=== PATIENT | female | born 1955 | race Caucasian/White ===

== ENCOUNTER 2016-07-29 12:06 | Emergency (ER) | payer MEDICAID ==
[~2016-07-29] VITALS: Ht 154.9 cm; Wt 72.6 kg
[~2016-07-29 12:06] MED LIST: ATEN100T88 PO; CHLORTABS; CYCL-97; GBPN100C; HYDROCODONE 5/500; LANS15CA27 PO; LORA-794; METH4TAB PO; PRD20T PO
[2016-07-29] MEDS ORDERED: ORPHENADRINE 60 MG/2 ML (NORFLEX) AMP IM ONE (12:15)
[2016-07-29] MEDS ORDERED: KETOROLAC 60 MG/2 ML VIAL IM ONE (12:15)
[2016-07-29] MEDS ORDERED: HYDROcodone/APAP 10 MG/325 MG (LORTAB) TAB PO ONE (12:15)
--- NOTE | 2016-07-29 12:17 | ED Back Pain ---
General Chief Complaint: Back Problems Stated Complaint: BACK PAIN Source of Information: Patient Exam Limitations: No Limitations History of Present Illness Time Seen by Provider: 12:16 Initial Comments To ER with low back pain. She has a history of chronic back pain and this is not new. It is worse than usual and has been for about a week. She just finished a five-day course of prednisone. She denies fevers chills or injury. Pain does occasionally radiate down her right leg and this is not a new symptom. Denies loss of bowel or bladder control or saddle anesthesia. Location: Lumbar Spine Timing/Duration: 1-2 Days Severity: Moderate Associated Symptoms: lower back pain Allergies and Home Medications Allergies Coded Allergies: Latex (Unverified Allergy, Mild, RASH, 08/24/08) Codeine (Verified Adverse Reaction, Mild, N/V, 08/30/08) Home Medications (Reported) (Reported) Atenolol 100 Mg Tablet (Reported) Cyclobenzaprine Hcl 10 Mg Tablet (Reported) Gabapentin 100 Mg Cap (Reported) Lansoprazole 15 Mg Capsule.dr (Reported) Lorazepam 0.5 Mg Tablet (Reported) Constitutional: see HPI EENTM: see HPI Respiratory: no symptoms reported Cardiovascular: no symptoms reported Genitourinary: no symptoms reported Musculoskeletal: see HPI back pain Skin: no symptoms reported Psychiatric/Neurological: No Symptoms Reported Past Ivdsrvu-Gtrmbf-Drvlcv Hx Patient Social History Recent Foreign Travel: No Contact w/Someone Who Travel: No Surgeries HX Surgeries: Yes (THROAT) Surgeries: Gallbladder, Hysterectomy Respiratory Hx Respiratory Disorders: No Cardiovascular Hx Cardiac Disorders: Yes Cardiac Disorders: Hypertension Neurological Hx Neurological Disorders: No Reproductive System Hx Reproductive Disorders: No Sexually Transmitted Disease: No Genitourinary Hx Genitourinary Disorders: No Gastrointestinal Hx Gastrointestinal Disorders: No Musculoskeletal Hx Musculoskeletal Disorders: Yes (FIBROMYALGIA) Musculoskeletal Disorders: Chronic Back Pain Endocrine Hx Endocrine Disorders: Yes (DIET CONTROLLED DIABETES) HEENT HX ENT Disorders: No Cancer Hx Cancer: No Psychosocial Hx Psychiatric Problems: No Blood Transfusions Hx Blood Disorders: No Physical Exam Vital Signs Vital Sign - Last 12Hours 07/29/16 12:10 Temp 98.4 Pulse 74 Resp 18 B/P 162/84 Pulse Ox 96 Capillary Refill : General Appearance: No Apparent Distress WD/WN HEENT: PERRL/EOMI TMs Normal Respiratory: No Accessory Muscle Use No Respiratory Distress Gastrointestinal: Non Tender Soft Back: Normal InspectionNo Vertebral Tenderness Extremity: Normal Capillary Refill Normal Inspection Neurologic/Psychiatric: Alert Oriented x3 No Motor/Sensory Deficits Skin: Normal Color Warm/Dry Progress/Results/Core Measures Results/Orders My Orders Orders-LUCRETIA JACKSON APRN Ketorolac Injection (Toradol Injection) (07/29/16 12:15) Hydrocodone/Apap 10/325 Tablet (Lortab 1 (07/29/16 12:15) Orphenadrine Injection (Norflex Injectio (07/29/16 12:15) Medications Given in ED Current Medications Medications Dose Ordered Sig/Daniel Route Start Time Stop Time Status Last Admin Dose Admin Orphenadrine Citrate 60 mg ONCE ONCE IM 07/29/16 12:15 07/29/16 12:16 DC 07/29/16 12:27 60 MG Vital Signs/I&O Vital Sign - Last 12Hours 07/29/16 12:10 Temp 98.4 Pulse 74 Resp 18 B/P 162/84 Pulse Ox 96 Departure Impression Impression: Primary Impression: Back pain Qualified Code: M54.41 - Lumbago with sciatica, right side Disposition: 01 HOME, SELF-CARE Condition: Stable Departure-Patient Inst. Decision time for Depature: 12:17 Referrals: LUIS BOLAND DO (PCP) Primary Care Physician Patient Instructions: Low Back Pain (DC) Add. Discharge Instructions: 1. Follow-up with [facility] tomorrow to refill your hydrocodone 2. Return to ER for any emergencies All discharge instructions reviewed with patient and/or family. Voiced understanding. LUCRETIA JACKSON APRN Jul 29, 2016 12:17
[2016-07-29 12:29] VITALS: BP 162/84
[2016-07-30] MEDS ORDERED: HYDR-3820 PO (13:20)
[2016-07-30] MEDS ORDERED: PANT40TA3 (13:20)
[2016-07-30] MEDS ORDERED: CHLO500T4 PO (13:21)
[2016-07-30] MEDS ORDERED: METH4TAB PO (14:12)
== END 2016-07-29 12:29 | disposition home or self-care (01) ==
LOC: EDUNIT# 12:06 → ER 12:07
DX: M54.5 Low back pain (principal); I10 Essential (primary) hypertension; E11.9 Type 2 diabetes mellitus without complications
CPT/HCPCS: 96372; 99281

== ENCOUNTER 2016-07-30 12:34 | Emergency (ER) | payer MEDICAID ==
[~2016-07-30] VITALS: Ht 154.9 cm; Wt 72.6 kg
[2016-07-30] MEDS ORDERED: PANT40TA3 (13:20)
[2016-07-30] MEDS ORDERED: HYDR-3820 PO (13:20)
[2016-07-30] MEDS ORDERED: CHLO500T4 PO (13:21)
--- NOTE | 2016-07-30 14:10 | ED Back Pain ---
General Chief Complaint: Back Problems Stated Complaint: BACK PAIN Nursing Triage Note: Pt reports she was seen in this ED yesterday for back pain and received injections of pain medication. Pt now states pain has returned. Pt reports hx chronic back pain. Nursing Sepsis Screen: No Definite Risk Source of Information: Patient History of Present Illness Time Seen by Provider: 14:00 Initial Comments C/O CHRONIC LOWER BACK PAIN, WORSE FOR THE LAST WEEK NO INJURY OR UNUSUAL ACTIVITY PAIN DOES RADIATE DOWN RIGHT LEG AT TIMES, BUT NOT NOW. THIS IS NOT A NEW PROBLEM NO PARESTHESIAS OR MOTOR DEFICITS NO DIFFICULTY WITH BOWEL OR BLADDER FUNCTION THIS IS EXACTLY THE SAME CHRONIC PROBLEMS SHE HAS HAD WITH HER BACK WAS SEEN IN ER YESTERDAY FOR THIS PROBLEM AND RECEIVED SHOTS, WHICH HELPED ALOT , THEN PAIN CAME BACK AFTER SHOTS WORE OFF. SEEN AT [facility] A COUPLE OF WEEKS AGO FOR UTI SYMPTOMS--FINISHED UNKNOWN ANTIBIOTIC A WEEK AGO. THOSE SYMPTOMS ARE GONE. PT STATES THAT "DR. NORTON" AT [facility] TOLD HER "NEVER TO HAVE STEROID SHOTS BECAUSE I HAD A SEVERE REACTION TO THE SHOT ( "IT MADE ME SHAKE ALL OVER") BUT I CAN TAKE THE PILLS". PT STATES SHE JUST FINISHED A MEDROL DOSE PACK LAST WEEK. WHICH HELPED TEMPORARILY. PT STATES TORADOL AND PREDNISONE ALWAYS HELP PT TAKES HYDROCODONE AND A MUSCLE RELAXANT EVERY DAY FOR THIS CHRONIC PROBLEM. SHE TOOK BOTH MEDS TODAY AT 0800, AND TOOK A HYDROCODONE AGAIN AT 10:00 AM TODAY , WITHOUT RELIEF. 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 Allergies and Home Medications Allergies Coded Allergies: Latex (Unverified Allergy, Mild, RASH, 08/24/08) Codeine (Verified Adverse Reaction, Mild, N/V, 08/30/08) Home Medications Atenolol 100 Mg Tablet 100 MG PO DAILY (Reported) Chlorzoxazone 500 Mg Tablet #60 500 MG PO UD (Reported) Gabapentin 100 Mg Cap (Reported) Hydrocodone/Acetaminophen 1 Each Tablet #112 Unknown Dose PO PRN PRN PRN PAIN ( Reported) Lansoprazole 15 Mg Capsule.dr Unknown Dose PO DAILY (Reported) Lorazepam 0.5 Mg Tablet (Reported) Methylprednisolone 4 Mg Tab.ds.pk #1 4 MG PO UD Prescribed by: MANOLO ALONZO on 07/30/16 1412 Pantoprazole Sodium 40 Mg Tablet. #90 Unknown Dose (Reported) Constitutional: no symptoms reported Respiratory: no symptoms reported Cardiovascular: no symptoms reported Gastrointestinal: no symptoms reported Genitourinary: no symptoms reported see HPI : No Control/STD Prophylaxis: Other (HYST/BSO) Musculoskeletal: see HPI back pain Skin: no symptoms reported Psychiatric/Neurological: No Symptoms Reported Past Txjsemk-Czchpj-Lfspcd Hx Patient Social History Alcohol Use: Denies Use Recreational Drug Use: No Smoking Status: Current Everyday Smoker Type Used: Cigarettes Recent Foreign Travel: No Contact w/Someone Who Travel: No Recent Infectious Disease Expo: No Recent Hopitalizations: Yes (ER VISIT) Surgeries HX Surgeries: Yes (THROAT; HYST/BSO) Surgeries: Gallbladder, Hysterectomy, Oophorectomy Respiratory Hx Respiratory Disorders: No Cardiovascular Hx Cardiac Disorders: Yes Cardiac Disorders: Hypertension Neurological Hx Neurological Disorders: No Reproductive System Hx Reproductive Disorders: No Sexually Transmitted Disease: No Genitourinary Hx Genitourinary Disorders: No Gastrointestinal Hx Gastrointestinal Disorders: No Musculoskeletal Hx Musculoskeletal Disorders: Yes (FIBROMYALGIA; RESTLESS LEG SYNDROME) Musculoskeletal Disorders: Fibromyalgia, Chronic Back Pain Endocrine Hx Endocrine Disorders: Yes (DIET CONTROLLED DIABETES) Endocrine Disorders: Diabetes, Non-Insulin dep HEENT HX ENT Disorders: No Cancer Hx Cancer: No Psychosocial Hx Psychiatric Problems: No Integumentary HX Skin/Integumentary Disorder: No Blood Transfusions Hx Blood Disorders: No Physical Exam Vital Signs Vital Sign - Last 12Hours 07/30/16 13:13 Temp 97.6 Pulse 64 Resp 18 B/P 146/80 Pulse Ox 95 O2 Delivery Room Air Capillary Refill : Less Than 3 Seconds General Appearance: No Apparent Distress WD/WN Neck: Full Range of Motion Normal Inspection Non Tender Supple Cardiovascular: Regular Rate, Rhythm No Edema No JVD No Murmur Normal Peripheral Pulses Respiratory: Normal Breath Sounds No Accessory Muscle Use No Respiratory Distress Gastrointestinal: Normal Bowel Sounds No Organomegaly No Pulsatile Mass Non Tender Soft Back: Decreased Range of Motion Muscle Spasm Other (TENDERNESS FROM MID- THORACICS DOWN TO LOWER LUMBAR AREA. DTR'S INTACT. MOTOR/SENSORY/VASCULAR INTACT. NEGATIVE STRAIGHT LEG RAISING BILATERALLY. ) Progress/Results/Core Measures Results/Orders My Orders Orders-MANOLO ALONZO DO Orphenadrine Injection (Norflex Injectio (07/30/16 14:15) Ketorolac Injection (Toradol Injection) (07/30/16 14:15) Diphenhydramine Injection (Benadryl Inje (07/30/16 14:15) Vital Signs/I&O Vital Sign - Last 12Hours 07/30/16 07/30/16 13:13 14:45 Temp 97.6 Pulse 64 78 Resp 18 16 B/P 146/80 Pulse Ox 95 98 O2 Delivery Room Air Blood Pressure Mean: 102 Departure Impression Impression: Primary Impression: EXACERBATION OF CHRONIC BACK PAIN WITH RIGHT SIDED SCIATICA Disposition: HOME, SELF-CARE Condition: Stable Departure-Patient Inst. Referrals: LUIS BOLAND DO (PCP/Family) Primary Care Physician Patient Instructions: Low Back Pain (DC), Sciatica (DC), Sciatica Exercises, MANAGING YOUR CHRONIC PAIN Add. Discharge Instructions: MOST HEAT TO SORE AREAS AT 20 MINUTE INTERVALS TAKE YOUR REGULAR MEDICATIONS PRESCRIBED FOLLOW UP WITH [facility] THIS WEEK FOR FURTHER CARE All discharge instructions reviewed with patient and/or family. Voiced understanding. Scripts Methylprednisolone (Medrol)4 Mg Tab.ds.pk4 Mg PO UD #1 PKG Prov:MANOLO ALONZO DO 07/30/16 MANOLO ALONZO DO Jul 30, 2016 14:10
[2016-07-30] MEDS ORDERED: METH4TAB PO (14:12)
[2016-07-30] MEDS ORDERED: KETOROLAC 60 MG/2 ML VIAL IM ONE (14:15)
[2016-07-30] MEDS ORDERED: ORPHENADRINE 60 MG/2 ML (NORFLEX) AMP IM ONE (14:15)
[2016-07-30] MEDS ORDERED: diphenhydrAMINE 50 MG/ML INJ (BENADRYL) IM ONE (14:15)
[2016-07-30 14:45] VITALS: BP 179/95
== END 2016-07-30 14:45 | disposition home or self-care (01) ==
LOC: EDUNIT# 12:34 → ER 12:35
DX: M54.41 Lumbago with sciatica, right side (principal); G89.29 Other chronic pain; I10 Essential (primary) hypertension; F17.210 Nicotine dependence, cigarettes, uncomplicated
CPT/HCPCS: 96372; 99281

== ENCOUNTER → 2016-08-22 | Outpatient (CLI) | payer MEDICAID ==
[~2016-08-22] MED LIST changes: +CHLO500T4 PO; +HYDR-3820 PO; +PANT40TA3
--- NOTE | 2016-08-22 11:19 | Diagnostic Imaging Report ---
PROCEDURE: CT maxillofacial without contrast. TECHNIQUE: Multiple contiguous axial images were obtained through the facial bones without the use of intravenous contrast. INDICATION: Sinusitis. FINDINGS: There is significant mural thickening throughout the left maxillary sinus which extends to the ostiomeatal complex and involves several anterior left ethmoid air cells. There is no paranasal sinus air-fluid level. There is mild rightward deviation of the nasal septum. The right ostiomeatal complex is patent. Visualized mastoid air cells are also unremarkable in appearance. Note is made of apparent ectopic, unerupted incisor in the anterior right maxilla with similar ectopic an unerupted tooth in the anterior left mandible. There are several premolar and molar teeth missing bilaterally which may be related to dental disease. IMPRESSION: Rather extensive chronic left maxillary sinusitis with obstruction of left ostiomeatal complex and involvement of several left anterior ethmoid air cells. No paranasal sinus air-fluid level is seen to indicate acute sinusitis. Dictated by: Dictated on workstation # [id number]
== END ==
LOC: RAD 10:38
PROVIDERS: ATTEND Nurse Practitioner Community Health
DX: J01.90 Acute sinusitis, unspecified (principal)
CPT/HCPCS: 70486

== ENCOUNTER → 2016-12-18 | Outpatient (CLI) | payer MEDICAID | LOC: RAD 13:14 | PROVIDERS: ATTEND Nurse Practitioner Community Health | DX: Z12.31 Encounter for screening mammogram for malignant neoplasm of breast (principal) | CPT/HCPCS: 77067 ==

== ENCOUNTER → 2016-12-28 | Outpatient (CLI) | payer MEDICAID ==
--- NOTE | 2016-12-30 18:31 | Diagnostic Imaging Report ---
INDICATION: 85-[id number]-nltf smoking history. EXAMINATION: Low dose CT lung cancer screening. FINDINGS: Previous low-dose CT lung cancer screening exam of 10/12/15 noted a 4 mm noncalcified nodule in the posteromedial aspect of the right lower lobe. That finding is again identified on this study and no different in size or appearance (image 30 of 47). No other parenchymal lung mass is identified. The 9 mm pretracheal lymph node, seen previously, now measures 8 mm. The 9.5 mm subcarinal node, seen on the prior study, measures 8.5 mm. The heart is stable in size. There are no coronary artery calcifications noted. The sections through the upper abdomen fail to show any sign of an acute abnormality. There is no obvious breast mass. The screening mammogram performed on 12/18/16 failed to show any sign of malignancy. The bone windows are unremarkable for a fracture or for a destructive lesion. IMPRESSION: 1. The 4 mm nodule in the right lung base, seen previously, appears stable. No new parenchymal abnormality has developed. 2. There is no sign of an acute cardiopulmonary abnormality. 3. A followup CT chest exam in one year would be recommended for continued evaluation. 1B - Negative. Nodule(s) with specific calcifications: complete, popcorn, concentric rings and fat containing nodules. Continue annual screening with LDCT in 12 months. Dictated by: Dictated on workstation # [id number]
== END ==
LOC: RAD 13:20
PROVIDERS: ATTEND Internal Medicine
DX: Z12.2 Encounter for screening for malignant neoplasm of respiratory organs (principal); R91.1 Solitary pulmonary nodule; F17.210 Nicotine dependence, cigarettes, uncomplicated

== ENCOUNTER 2017-12-04 17:36 | Inpatient (IN) | payer MEDICAID ==
[~2017-12-04] VITALS: Ht 154.9 cm; Wt 70.0 kg
[2017-12-04] VITALS (17 sets, daily range): BP systolic 130–169; BP diastolic 93–108
[2017-12-04] MEDS ORDERED: TICAGRELOR 90 MG TABLET (BRILINTA) PO ONE (17:41)
--- OUTSIDE RECORDS SUMMARY | 2017-12-04 17:42 | XMS REPORT ---
Author Author CEDRIC LAWLER Organization [facility] Address [address] [place] [address] Care Team Providers Care Food Supervisor Name Role Phone CEDRIC LAWLER Unavailable PROBLEMS Type Condition ICD9-CM Code ZBG67-UP Code Onset Dates Condition Status SNOMED Code Problem Nicotine dependence, uncomplicated, unspecified nicotine product type F17.200 Active 26702950 Problem Ab[address] lung screening R93.8 Active 869568055 Problem Mild persistent asthma without complication J45.30 Active 540778245 Problem Restless leg syndrome G25.81 Active 55651381 Problem Osteoarthritis of spine with radiculopathy, cervical region M47.22 Active 501287777 Problem RLS (restless legs syndrome) G25.81 Active 66947751 Problem Diabetes mellitus type 2, controlled E11.9 Active 281794706 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 179903316071155 Problem Hypertension, benign I10 Active 13950177 Problem Essential hypertension I10 Active 36740610 ALLERGIES No Information ENCOUNTERS Encounter Location Date Diagnosis [place] [id number] [place] [address] 56862- 8623 Oct, [place] [address] [place] [id number] [place] [address] 80952- 9104 Oct, [place] [id number] [place] [address] 20642- 9534 Oct, Skin tags, multiple acquired L91.8 [place] [address] [id number] [place] [address] 72748- 6451 Oct, [place] [id number] [place] [address] 63740- 4821 Oct, Diabetes mellitus type 2, controlled E11.9 and Osteoarthritis of spine with radiculopathy, cervical region M47.22 [place] [id number] [address] 3176 September, Osteoarthritis of spine with radiculopathy, cervical region M47.22 ; Coughing R05 ; Chronic pruritus L29.9 and Breast cancer screening Z12.31 [facility] [address] [address] 1356 September, Diabetes mellitus type 2, controlled E11.9 [facility] [address] [address] Jul, Chronic cough R05 [facility] [id number] [place] [address], [place] [address]- 3[address] Jul, [facility] [id number] [place] [address] 44037- 7188 Jul, Diabetes mellitus type 2, controlled E11.9 [facility] [address] [address]- 9472 Jul, [facility] [address] [address]- 7169 Jul, [facility] [address] [address]- 9010 Jun, [facility] [address] [address]- 9338 Jun, Diabetes mellitus type 2, controlled E11.9 [facility] [address] [address]- 3838 Jun, [facility] [address] [address] [address] May, [facility] [id number] 6496 May, Diabetes mellitus type 2, controlled E11.9 [facility] [address] 7366 Apr, [facility] [id number] [place] [address] 32477- 6327 Apr, Pneumonia of right upper lobe due to infectious organism J18.1 [place] [address] 97797- 2114 Mar, [place] [address] 44955- 7073 Mar, [place] [address] 60735- 0279 Mar, [place] [address] 70168- 0679 03 Mar, 2017 Coughing R05 and SOB (shortness of breath) R06.02 [place] [address] 63315- 7438 Mar, Diabetes mellitus type 2, controlled E11.9 ; Coughing R05 and SOB (shortness of breath) R06.02 [place] [address] 71336- 1355 Feb, [place] [address] 97328- 1347 Feb, [place] [address] 53484- 1701 Jan, Hypertension, benign I10 and RLS (restless legs syndrome) G25.81 [place] [address] 70114- 8810 Jan, [place] [address] 02822- 7482 Dec, Pain in unspecified joint M25.50 and Mild persistent asthma without complication J45.30 [place] [address] 44288- 7510 Dec, [place] [address] 20220- [address] Dec, [address] lung screening R93.8 [facility] [address] [address]- 3156 Dec, [facility] [id number] [place] [address] 01638- 3653 Nov, Screening for breast cancer Z12.31 [facility] [id number] [place] [address] 20254- 0270 Nov, [facility] [id number] [place] [address] 90583- 1914 Nov, Essential hypertension I10 [facility] [id number] [place] [address] 16392- 4647 Nov, Essential hypertension I10 [facility] [id number] [place] [address] 02915- 0992 Oct, Acute non-recurrent maxillary sinusitis J01.00 [facility] [id number] [place] [address] 53280- 3543 Oct, [facility] [id number] [place] [address] 06680- 9037 September, Acute non-recurrent maxillary sinusitis J01.00 [facility] [address] [place] [address] 69155 -8170 September, Low back pain M54.5 [facility] [address] [place] [address] 79194- 4569 September, [facility] [address] [place] [address] 03724- 2268 Aug, Acute non-recurrent maxillary sinusitis J01.00 [facility] [address] [id number] Aug, Dental examination Z01.20 [facility] [address] [place] [address] 38605- 2910 Aug, [facility] [id number] [place] [address] 81980- 1668 Aug, [facility] [address] [address]- 1073 Aug, [facility] [id number] [place] [address] 73400- 8400 Aug, Acute sinusitis J01.90 [facility] [id number] [place] [address] 14179- 3487 Jul, [facility] [id number] [place] [address] 32680- 5810 Jul, [facility] [id number] [place] [address] 14708- 7547 Jul, [facility] [id number] [place] [address] 34807- 9103 Jul, [facility] [id number] [place] [address] 67123- 9483 Jul, Frequent urination R35.0 and Acute cystitis with hematuria N30.01 [facility] [address] [place] [address] 09166- 0858 Jul, [facility] [id number] [place] [address] 07075- 9136 Jun, [facility] [id number] [place] [address] 54156- 4868 Jun, Acute sinusitis J01.90 [facility] [id number] [place] [address] 79129- 6176 Jun, Diabetes mellitus type 2, controlled E11.9 ; Cough R05 ; Acute non-recurrent maxillary sinusitis J01.00 and 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 [facility] [address] [address]- 6084 May, [facility] [id number] [place] [address] 90079- 7849 May, [facility] [address] [address]- 7233 May, [facility] [id number] [place] [address] 83680- 9004 Apr, [facility] [id number] [address]- 9951 Apr, [facility] [id number] [place] [address] 79172- 7558 Apr, [facility] [address] [address]1870 Apr, Acute non-recurrent maxillary sinusitis J01.00 [facility] [id number] [place] [address] 38391- 1705 Apr, [facility] [id number] [place] [address] 16498- 9685 Feb, [facility] [id number] [place] [address] 91557- 2166 Feb, [facility] [id number] [place] [address] 91096- 1221 Feb, [facility] [id number] [place] [address] 76764- 1328 Feb, [facility] [address] [place] [address] 25097- 0076 Feb, [facility] [id number] [place] [address] 88257- 1966 Feb, [facility] [id number] [place] [address] 12891- 6692 Jan, RLS (restless legs syndrome) G25.81 ; Osteoarthritis of spine with radiculopathy, cervical region M47.22 ; Lumbar neuritis M54.16 and Left sciatic nerve pain M54.32 [facility] [id number] [place] [address] 60524- 3344 Jan, [facility] [address] [address]- 3708 Dec, [facility] [address] [address]- 4775 Nov, [facility] [address] [address]- 8787 Nov, [facility] [id number] [place] [address] 81648- 0498 Nov, [facility] [address] [address]- 0838 Nov, Restless leg syndrome G25.81 and Controlled type 2 diabetes mellitus without complication, without long-term current use of insulin E11.9 [place] [address] [address]- 7106 Nov, [facility] [address] [place] [address] 13760- 9074 Oct, [facility] [address] [address]- 5893 Oct, [facility] [address] [address]- 7894 Oct, [facility] [address] [address]- 1227 Oct, 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 lung screening R93.8 [facility] [address] [address]- 1660 Oct, [facility] [address] [address]- 4108 September, [facility] [address] [address]- 5639 September, Physical exam, annual Z00.00 ; Nicotine dependence, uncomplicated, unspecified nicotine product type F17.200 ; Screening breast examination Z12.39 ; Restless leg syndrome G25.81 and Mild persistent asthma without complication J45.30 [facility] [id number] [place] [address] 99085- 9105 September, [facility] [id number] [place] [address] 89160- 3864 September, [facility] [id number] [place] [address] 78135- 6016 Aug, [facility] [id number] [place] [address] 68661- 3318 09 Jul, 2015 Dental examination Z01.20 and Dental caries K02.9 [place] [address] 68965- 4630 Jul, [facility] [id number] [place] [address] 38403- 7214 Jul, Diabetes mellitus type 2, controlled E11.9 and Pain in unspecified joint M25.50 [facility] [id number] [place] [address] 24132- 8203 Jul, [facility] [id number] [place] [address] 28577- 2168 Jun, Dental examination Z01.20 [facility] [id number] [place] [address] 38234- 4684 May, [facility] [id number] [place] [address] 81074- 9624 May, [facility] [id number] [place] [address] 79605- 7825 Apr, [facility] [id number] [place] [address] 25303- 2506 Mar, [facility] [id number] [place] [address] 22817- 1680 Mar, Acute sinusitis J01.90 [facility] [id number] [place] [address] 54740- 2462 Feb, [facility] [address] [address]- 5210 Jan, Flu vaccine need V04.81 [facility] [id number] [place] [address] 53178- 8242 Jan, [facility] [id number] [place] [address] 12337- 7063 Jan, Pain in joint, site unspecified 719.40 [facility] [id number] [place] [address] 86561- 7812 Dec, Pain in joint, site unspecified 719.40 [facility] [address] 51749- 7194 Dec, [facility] [id number] [place] [address] 65789- 2130 Dec, [facility] [id number] [place] [address] 77166- 3889 Dec, Sciatica 724.3 ; Restless legs syndrome [RLS] 333.94 and Encounter for smoking cessation counseling V65.42 [facility] [id number] [place] [address] 39757- 1625 Dec, Nicotine dependence 305.1 [facility] [id number] [place] [address] 50512- 1313 Nov, [facility] [id number] [place] [address] 29392- 9947 Oct, [facility] [id number] [place] [address] 24341- 9872 Oct, [facility] [id number] [place] [address] 19369- 3455 September, [facility] [id number] [place] [address] 01934- 7589 Aug, [facility] [address] [place] [address]- 3991 Aug, [facility] [place] [facility] [address] [id number] [place] [address]- 7055 Jul, [facility] [place] [facility] [address] [id number] [place] [address]- 2171 Jul, [facility] [place] [facility] [address] [id number] [place] [address]- 3512 Jul, [facility] [place] [facility] [address] [id number] [place] [address]- 5169 Jun, [facility] [place] [facility] [address] [id number] [place] [address]- 4205 Jun, [facility] [place] [facility] [address] [id number] [place] [address]- 1206 Jun, [facility] [place] [facility] [address] [id number] [place] [address]- 0268 Jun, [facility] [place] [facility] [address] [id number] [place] [address]- 6861 May, [facility] [place] [facility] [address] [id number] [place] [address]- 3605 May, [facility] [place] [facility] [address] [id number] [place] [address]- 5239 May, [facility] [place] [facility] [address] [id number] [place] [address]- 8265 May, [facility] [place] [facility] [address] [id number] [place] [address]- 9388 May, [facility] [place] [facility] [address] [id number] [place] [address]- 2537 May, [facility] [place] [facility] [address] [id number] [place] [address]- 0596 May, [facility] [place] [facility] [address] [id number] [place] [address]- 1375 Apr, [facility] [place] [facility] [address] [id number] [place] 4198 Apr, [facility] [place] [facility] [address] [id number] [place] [address]- 0286 Apr, [facility] [place] [facility] [address] [id number] [place] 7537 Apr, [facility] [place] [facility] [address] [id number] [place] [address]- 9197 Apr, [facility] [place] [facility] [address] [id number] [place] 4432 Apr, [facility] [place] [facility] [address] [id number] [place] 2729 Apr, [facility] [place] [facility] [address] [id number] [place] [address]- 8652 Apr, [facility] [place] [facility] [address] [id number] [place] [address]- 3820 Apr, [facility] [place] [facility] [address] [id number] [place] [address]- 6941 Apr, [facility] [place] [facility] [address] [id number] [place] [address]- 5923 Mar, [facility] [place] [facility] [address] [id number] [place] [address]- 9212 Mar, [facility] [place] [facility] [address] [id number] [place] [address]- 8479 Mar, [facility] [place] [facility] [address] [id number] [place] [address]- 6853 Mar, [facility] [place] [facility] [address] [id number] [place] [address]- 7871 Mar, [facility] [place] [facility] [address] [id number] [place] [address]- 8480 Mar, [facility] [place] [facility] [address] [id number] [place] [address]- 5508 15 Feb, 2014 [facility] [place] [facility] [address] [id number] [place] [address]- 1937 15 Feb, 2014 [facility] [place] [facility] [address] [id number] [place] [address]- 6730 Feb, [facility] [place] [facility] [address] [id number] [place] [address]- 2113 Feb, [facility] [place] [facility] [address] [id number] [place] [address]- 1514 Feb, [facility] [place] [facility] [address] [id number] [place] [address]- 6690 Feb, [facility] [place] [facility] [address] [id number] [place] [address]- 9096 Jan, [facility] [place] [facility] [address] [id number] [place] [address]- 9898 Jan, [facility] [place] [facility] [address] [id number] [place] [address]- 7477 Jan, [facility] [place] [facility] [address] [id number] [place] [address]- 9349 Jan, [facility] [place] [facility] [address] [id number] [place] [address]- 5419 Dec, [facility] [place] [facility] [address] [id number] [place] [address]- 6570 Dec, [facility] [place] [facility] [address] [id number] [place] [address]- 8652 Dec, [facility] [place] [facility] [address] [id number] [place] [address]- 8594 Dec, [facility] [place] [facility] [address] [id number] [place] [address]- 8572 Dec, [facility] [place] [facility] [address] [id number] [place] [address]- 9403 16 Nov, 2013 [facility] [place] [facility] [address] [id number] [place] [address]- 2350 16 Nov, 2013 [facility] [place] [facility] [address] [id number] [place] [address]- 9406 15 Nov, 2013 [facility] [place] [facility] [address] [id number] [place] [address]- 0469 15 Nov, 2013 [facility] [place] [facility] [address] [id number] [place] [address]- 7993 15 Nov, 2013 [facility] [place] [facility] [address] [id number] [place] [address]- 0495 15 Nov, 2013 [facility] [place] [facility] [address] [id number] [place] [address]- 2073 16 Oct, 2013 [facility] [place] [facility] [address] [id number] [place] [address]- 6650 16 Oct, 2013 [facility] [place] [facility] [address] [id number] [place] [address]- 2016 16 Sep, 2013 [facility] [place] [facility] [address] [id number] [place] [address]- 3385 16 Sep, 2013 [facility] [place] [facility] [address] [id number] [place] [address]- 8154 14 Sep, 2013 [facility] [place] [facility] [address] [id number] [place] [address]- 6849 14 Sep, 2013 [facility] [place] [facility] [address] [id number] [place] [address]- 5777 14 Aug, 2013 [facility] [place] [facility] [address] [id number] [place] [address]- 5954 14 Aug, 2013 [facility] [place] [facility] [address] [id number] [place] [address]- 6892 17 Jul, 2013 [facility] [place] [facility] [address] [id number] [place] [address]- 1996 17 Jul, 2013 [facility] [place] [facility] [address] [id number] [place] [address]- 4346 14 Jul, 2013 [facility] [place] [facility] [address] [id number] [place] [address]- 9093 14 Jul, 2013 [facility] [place] [facility] [address] [id number] [place] [address]- 4775 Jun, [facility] [place] [facility] [address] [id number] [place] [address]- 3043 Jun, [facility] [place] [facility] [address] [id number] [place] [address]- 3732 Jun, [facility] [place] [facility] [address] [id number] [place] [address]- 5292 Jun, [facility] [place] [facility] [address] [id number] [place] [address]- 3287 May, [facility] [place] [facility] [address] [id number] [place] [address]- 7410 May, [facility] [place] [facility] [address] [id number] [place] [address]- 1189 May, [facility] [place] [facility] [address] [id number] [place] [address]- 9276 May, [facility] [place] [facility] [address] [id number] [place] [address]- 8166 Apr, [facility] [place] [facility] [address] [id number] [place] [address]- 1762 Apr, [facility] [place] [facility] [address] [id number] [place] [address]- 7784 Apr, [facility] [place] [facility] [address] [id number] [place] [address]- 4508 Mar, [facility] [place] [facility] [address] [id number] [place] [address] Mar, [facility] [place] [facility] [address] [id number] [place] [address] Mar, [facility] [place] [facility] [address] [id number] [place] [address] Mar, [facility] [address] [id number] [place] [address] Feb, 2012 [facility] [place] [facility] [address] [id number] [place] [address] Feb, [facility] [address] [id number] [place] [address] Feb, [facility] [place] [facility] [address] [id number] [place] [address] Feb, [facility] [address] [id number] [place] [address] Feb, [facility] [place] [facility] [address] [id number] [place] [address] Feb, [facility] [address] [id number] [place] [address] Feb, [facility] [address] [id number] [place] [address] Feb, [facility] [place] [facility] [address] [id number] [place] [address] Jan, [facility] [place] [facility] [address] [id number] [place] [address] Jan, [facility] [place] [facility] [address] [id number] [place] [address] Jan, [facility] [place] [facility] [address] [id number] [place] [address] Dec, [facility] [place] [facility] [address] [id number] [place] [address] Dec, [facility] [place] [facility] [address] [id number] [place] [address] Nov, [facility] [place] [facility] [address] [id number] [place] [address] Nov, [facility] [place] [facility] [address] [id number] [place] [address] Nov, [facility] [address] [id number] [place] [address] Nov, [facility] [address] [id number] [place] [address] Oct, [facility] [place] [facility] [address] [id number] [place] [address] Oct, [facility] [address] [id number] [place] [address] Oct, [facility] [address] [id number] [place] [address] September, [facility] [address] [id number] [place] [address] September, [facility] [address] [id number] [place] [address] September, [facility] [address] [id number] [place] [address] September, [facility] [address] [id number] [place] [address] Aug, [facility] [address] [id number] [place] [address] Aug, [facility] [place] [facility] [address] [id number] [address] Jul, [facility] [place] [facility] [address] [id number] [place] [address] Jul, [facility] [place] [facility] [address] [id number] [place] [address] Jul, [facility] [place] [facility] [address] [id number] [place] [address] Jul, [facility] [place] [facility] [address] [id number] [place] [address] Jul, [facility] [address] [id number] [place] [address]- [address] Jun, [facility] [address] [id number] [place] [address] Jun, [facility] [address] [id number] [place] [address] Jun, [facility] [address] [id number] [place] [address] May, [facility] [address] [id number] [place] [address] May, [facility] [address] [id number] [place] [address] May, [facility] [address] [id number] [place] [address] Apr, [facility] [address] [id number] [place] [address] Apr, [facility] [address] [id number] [place] [address] Apr, [facility] [address] [facility] [id number] [place] [address] Apr, [facility] [address] [id number] [place] [address] Apr, [facility] [address] [id number] [place] [address] Apr, [facility] [address] [id number] [place] [address] Apr, [facility] [address] [id number] [place] [address] 1496 Apr, [facility] [address] [facility] [id number] [place] [address] Mar, [facility] [place] [facility] [address] [id number] [place] [address]6 Mar, [facility] [place] [facility] [address] [id number] [place] [address] 77[address] Mar, [facility] [place] [facility] [address] [id number] [place] [address] Mar, [facility] [place] [facility] [address] [id number] [place] [address] 74[address] Mar, [facility] [place] [facility] [address] [id number] [place] [address] 4471 Mar, [facility] [place] [facility] [address] [id number] [place] [address] Mar, [facility] [place] [facility] [address] [id number] [place] [address] 117[address] Mar, [facility] [place] [facility] [address] [id number] [place] [address]135 Mar, [facility] [place] [facility] [address] [id number] [place] [address]296 Mar, [facility] [place] [facility] [address] [id number] [place] [address] 6771 Feb, [facility] [place] [facility] [address] [id number] [place] [address] 9647 Feb, [facility] [place] [facility] [address] [id number] [place] [address] 1968 Feb, [facility] [place] [facility] [address] [id number] [place] [address] 11 Jan, 2012 [facility] [place] [facility] [address] [id number] [place] [address]16 07 Jan, 2012 [facility] [place] [facility] [address] [id number] [place] [address] 07 Jan, 2012 [facility] [place] [facility] [address] [id number] [place] [address] Dec, [facility] [place] [facility] [address] [id number] [place] [address] Dec, [facility] [place] [facility] [address] [id number] [place] [address] 2526 Dec, [facility] [place] [facility] [address] [id number] [place] [address] 2546 Dec, [facility] [place] [facility] [address] [id number] [place] [address] 9626 Dec, [facility] [place] [facility] [address] [id number] [place] [address] 79[address] Nov, [facility] [place] [facility] [address] [id number] [place] [address] 6826 Nov, [facility] [place] [facility] [address] [id number] [place] [address] 9636 Oct, [facility] [place] [facility] [address] [id number] [place] [address] 2265 September, [facility] [place] [facility] [address] [id number] [place] [address] 1186 September, [facility] [place] [facility] [address] [id number] [place] [address] 4926 September, [facility] [place] [facility] [address] [id number] [place] [address] 4106 September, [facility] [place] [facility] [address] [id number] [place] [address] 2546 September, [facility] [place] [facility] [address] [id number] [place] [address]- 5766 Aug, [facility] [place] [facility] [address] [id number] [place] [address]- 2546 16 Jul, 2011 [facility] [place] [facility] [address] [id number] [place] [address] 2546 Jul, [facility] [place] [facility] [address] [id number] [place] [address] 9420 14 Jul, 2011 [facility] [address] [id number] [place] [address]- 2493 14 Jul, 2011 [facility] [place] [facility] [address] [id number] [place] [address] 2546 09 Jul, 2011 [facility] [address] [id number] [place] [address]- 2227 09 Jul, 2011 [facility] [place] [facility] [address] [id number] [place] [address] 2549 08 Jul, 2011 [facility] [address] [id number] [place] [address]- 2010 Jul, [facility] [place] [facility] [address] [id number] [place] [address]- 3986 27 Jun, 2011 [facility] [place] [facility] [address] [facility] [id number] [place] [address] 2849 16 Jun, 2011 [facility] [place] [facility] [address] [facility] [id number] [place] [address]- 5243 Jun, [facility] [place] [facility] [address] [facility] [id number] [place] [address]- 6987 May, [facility] [address] [facility] [id number] [place] [address]- 4736 Apr, [facility] [place] [facility] [address] [id number] [place] [address]- 5186 Apr, [facility] [place] [facility] [address] [id number] [place] [address]- 2546 Mar, [facility] [place] [facility] [address] [id number] [place] [address]- 7666 Mar, [facility] [place] [facility] [address] [facility] [id number] [place] [address]- 2546 Mar, [facility] [place] [facility] [address] [facility] [id number] [place] [address] Feb, [facility] [place] [facility] [address] [id number] [place] [address]- 7767 Feb, [facility] [place] [facility] [address] [id number] [place] [address]- 5028 Feb, [facility] [place] [facility] [address] [id number] [place] [address]- 0555 Apr, [facility] [place] [facility] [address] [id number] [place] [address]- 7491 Apr, [facility] [place] [facility] [address] [id number] [place] [address]- 4703 Mar, [facility] [place] [facility] [address] [id number] [place] [address]- 0684 Mar, [facility] [place] [facility] [address] [id number] [place] [address]- 9903 Mar, [facility] [place] [facility] [address] [id number] [address] 4085 Mar, [facility] [place] [facility] [address] [id number] [place] [address]- 0027 Mar, [facility] [place] [facility] [address] [id number] [address] 9932 Feb, [facility] [place] [facility] [address] [id number] [place] [address] 37[address] September, [facility] [place] [facility] [address] [id number] [place] [address]- 8998 Aug, [facility] [place] [facility] [address] [id number] [place] [address]- 0455 Apr, [facility] [place] [facility] [address] [id number] [place] [address]- 6017 15 Apr, 2009 [facility] [place] [facility] [address] [id number] [place] [address]- 9004 18 Mar, 2009 [facility] [place] [facility] [address] [id number] [place] [address]- 7638 Mar, [facility] [id number] [address] Mar, [facility] [id number] [address] 0496 Feb, [facility] [address] [id number] [address]11 Jan, [facility] [id number] [place] [address]- [address]289 Dec, [facility] [id number] [place] [address]- 1908 Nov, [facility] [id number] [place] [address]- 8137 Oct, [facility] [id number] [place] [address]- 3348 Apr, [facility] [id number] [address]- 8971 Apr, [facility] [id number] [address]- 6[address] Apr, [facility] [id number] [address]- 6824 Feb, IMMUNIZATIONS No Known Immunizations SOCIAL HISTORY Never Assessed REASON FOR VISIT continued productive cough PLAN OF CARE VITAL SIGNS MEDICATIONS Medication Instructions Dosage Frequency Start Date End Date Duration Status PredniSONE 20 mg Orally Once a day 2 tablets 24h Apr, Jul, 05 days Active Tessalon Perles 100 mg Orally Three times a day 1 capsule as needed 8h Jul, Active RESULTS No Results PROCEDURES No Known procedures INSTRUCTIONS MEDICATIONS ADMINISTERED No Known Medications MEDICAL (GENERAL) HISTORY Type Description Date Medical History Diabetes type 2; diet controlled Medical History chronic pain; back and leg Medical History fibromyalgia Medical History restless leg syndrome Medical History Sjorens Syndrome Medical History degerative disc disease Medical History Asthma Medical History Low Dose Lung CT Screening 09/2015 - Multiple tiny granulomas bilaterally, 0.4cm nodule RLL (possibly granuloma) - needs f/u CT 6 months Surgical History cholecystectomy Surgical History hysterectomy - TVH w/ BSO - benign reasons 2005 Surgical History neck surgery; tumor removed; ?thyroid Surgical History hernia repair (with the cholecystectomy) Surgical History gallbladder removed 2008 Hospitalization History r/t surgeries and childbirth
--- OUTSIDE RECORDS SUMMARY | 2017-12-04 17:43 | XMS REPORT ---
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 Problem Lump or mass in breast 611.72 Active Assessment Pain in joint, site unspecified 719.40 Active Problem Unspecified arthropathy, site unspecified 716.90 Active Problem Pain in joint, site unspecified 719.40 Active Problem Unspecified peripheral vertigo 386.10 Active Problem Dysfunction of Eustachian tube 381.81 Active Problem Restless legs syndrome [RLS] 333.94 Active Problem Unspecified sleep disturbance 780.50 Active Problem Screening mammogram for high-risk patient V76.11 Active Problem DTAP TEST V06.1 Active Medications No Known Medications Results No Known Results Summary Purpose [employer] Submission
--- OUTSIDE RECORDS SUMMARY | 2017-12-04 17:43 | XMS REPORT ---
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 Problem Lump or mass in breast 611.72 Active Assessment Flu vaccine need V04.81 Active Problem Unspecified arthropathy, site unspecified 716.90 Active Problem Pain in joint, site unspecified 719.40 Active Problem Unspecified peripheral vertigo 386.10 Active Problem Dysfunction of Eustachian tube 381.81 Active Problem Restless legs syndrome [RLS] 333.94 Active Problem Unspecified sleep disturbance 780.50 Active Problem Screening mammogram for high-risk patient V76.11 Active Problem DTAP TEST V06.1 Active Medications No Known Medications Procedures Procedure Coding System Code Date SINGLE IMMUNIZATION ADMIN CPT-4 00167 Jan 31, 2015 FLU VAC NO PRSV 4 LYLY 3 YRS+ CPT-4 75157 Jan 31, 2015 Results No Known Results Immunizations Vaccine Administration Date FLUARIX QUAD (3 & UP)-2014Jan 31, 2015 Summary Purpose [employer] Submission
--- OUTSIDE RECORDS SUMMARY | 2017-12-04 17:43 | XMS REPORT ---
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 010345274645587 Problem Abnormal CT lung screening R93.8 Active 462959650 Problem Mild persistent asthma without complication J45.30 Active 702118771 Problem Nicotine dependence, uncomplicated, unspecified nicotine product type F17.200 Active 12206598 Problem Restless leg syndrome G25.81 Active 50995418 ALLERGIES Unknown Allergies SOCIAL HISTORY No smoking Hx information available PLAN OF CARE VITAL SIGNS MEDICATIONS Medication Instructions Dosage Frequency Start Date End Date Duration Status PredniSONE 20 mg Orally twice a day 1 tablet 12h Apr, Apr, 05 days Active RESULTS No Results PROCEDURES No Known procedures IMMUNIZATIONS No Known Immunizations
--- OUTSIDE RECORDS SUMMARY | 2017-12-04 17:43 | XMS REPORT ---
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
--- OUTSIDE RECORDS SUMMARY | 2017-12-04 17:43 | XMS REPORT ---
Author Author CEDRIC LAWLER Organization [facility] Address [address] [place] [address] Care Team Providers Care Bilingual Legal Assistant Name Role Phone CEDRIC LAWLER Unavailable PROBLEMS Type Condition ICD9-CM Code CBM69-RS Code Onset Dates Condition Status SNOMED Code Problem Nicotine dependence, uncomplicated, unspecified nicotine product type F17.200 Active 40049801 Problem Ab[address] CT lung screening R93.8 Active 363209134 Problem Mild persistent asthma without complication J45.30 Active 627907314 Problem Restless leg syndrome G25.81 Active 76177041 Problem Osteoarthritis of spine with radiculopathy, cervical region M47.22 Active 706109793 Problem RLS (restless legs syndrome) G25.81 Active 88039368 Problem Diabetes mellitus type 2, controlled E11.9 Active 196033778 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 698665916644342 Problem Hypertension, benign I10 Active 31149528 Problem Essential hypertension I10 Active 88581402 ALLERGIES No Information ENCOUNTERS Encounter Location Date Diagnosis [place] [id number] [place] [address] 84408- 2361 Oct, [place] [address] [place] [id number] [place] [address] 37854- 6661 Oct, [place] [id number] [place] [address] 43793- 1154 Oct, Skin tags, multiple acquired L91.8 [place] [id number] [place] [address] 98635- 7329 Oct, [place] [id number] [place] [address] 07643- 4353 Oct, Diabetes mellitus type 2, controlled E11.9 and Osteoarthritis of spine with radiculopathy, cervical region M47.22 [place] [address] [address]49 September, Osteoarthritis of spine with radiculopathy, cervical region M47.22 ; Coughing R05 ; Chronic pruritus L29.9 and Breast cancer screening Z12.31 [facility] [address] [address] [address] September, Diabetes mellitus type 2, controlled E11.9 [facility] [address] [address] Jul, Chronic cough R05 [facility] [address] [place] [id number] [place] [address], [place] [address]- 0056 Jul, [facility] [id number] [place] [address] 30744- 8878 Jul, Diabetes mellitus type 2, controlled E11.9 [facility] [address] [address] 3998 Jul, [facility] [address] [address]- 7634 Jul, [facility] [address] [address]- 6269 Jun, [facility] [address] [address]- 9118 Jun, Diabetes mellitus type 2, controlled E11.9 [facility] [address] [address]- 9290 Jun, [facility] [address] [address] 95[address] May, [facility] [address] [address] May, Diabetes mellitus type 2, controlled E11.9 [facility] [address] [address] Apr, [facility] [id number] [place] [address] 73082- 7781 Apr, Pneumonia of right upper lobe due to infectious organism J18.1 [place] [address] 60779- 2554 Mar, [place] [address] 55550- 0410 Mar, [place] [address] 50478- 4356 Mar, [place] [address] 26284- 6850 03 Mar, 2017 Coughing R05 and SOB (shortness of breath) R06.02 [place] [address] 01623- 7900 Mar, Diabetes mellitus type 2, controlled E11.9 ; Coughing R05 and SOB (shortness of breath) R06.02 [place] [address] 79007- 0694 Feb, [place] [address] 61330- 1071 Feb, [place] [address] 76664- 9530 Jan, Hypertension, benign I10 and RLS (restless legs syndrome) G25.81 [place] [address] 55814- 3275 Jan, [place] [address] 07491- 2292 Dec, Pain in unspecified joint M25.50 and Mild persistent asthma without complication J45.30 [place] [address] 76645- 2423 Dec, [place] [address] 27372- [address] Dec, [address] lung screening R93.8 [facility] [address] [address]- 7477 Dec, [facility] [id number] [place] [address] 72892- 3662 Nov, Screening for breast cancer Z12.31 [facility] [id number] [place] [address] 57365- 6393 Nov, [facility] [id number] [place] [address] 93324- 7264 Nov, Essential hypertension I10 [facility] [id number] [place] [address] 93130- 9181 Nov, Essential hypertension I10 [facility] [id number] [place] [address] 40097- 0032 Oct, Acute non-recurrent maxillary sinusitis J01.00 [facility] [id number] [place] [address] 72244- 0937 Oct, [facility] [id number] [place] [address] 25460- 9970 September, Acute non-recurrent maxillary sinusitis J01.00 [facility] [address] [place] [address] 01331 -0096 September, Low back pain M54.5 [facility] [address] [place] [address] 97727- 7764 September, [facility] [address] [place] [address] 00190- 8385 Aug, Acute non-recurrent maxillary sinusitis J01.00 [facility] [address] [address] Aug, Dental examination Z01.20 [facility] [address] [place] [address] 05265- 6533 Aug, [facility] [id number] [place] [address] 45603- 1104 Aug, [facility] [address] [address]- 4054 Aug, [facility] [id number] [place] [address] 00439- 7572 Aug, Acute sinusitis J01.90 [facility] [id number] [place] [address] 22858- 8991 Jul, [facility] [id number] [place] [address] 35219- 5114 Jul, [facility] [address] [id number] [place] [address] 36683- 0952 Jul, [facility] [address] [id number] [place] [address] 45096- 7558 Jul, [facility] [address] [place] [id number] [place] [address] 12806- 0590 Jul, Frequent urination R35.0 and Acute cystitis with hematuria N30.01 [facility] [address] [place] [address] 52728- 2922 Jul, [facility] [id number] [place] [address] 30392- 5954 Jun, [facility] [id number] [place] [address] 93551- 5381 Jun, Acute sinusitis J01.90 [facility] [address] [id number] [place] [address] 52991- 0285 Jun, Diabetes mellitus type 2, controlled E11.9 ; Cough R05 ; Acute non-recurrent maxillary sinusitis J01.00 and long term (current) use of opiate analgesic Z79.891 [facility] [address] [address]- 0167 May, [facility] [address] [id number] [place] [address] 57930- 8191 May, [facility] [address] [address]- 5971 May, [facility] [id number] [place] [address] 08300- 5274 Apr, [facility] [address] [address]- 9442 Apr, [facility] [address] [id number] [place] [address] 82276- 2868 Apr, [facility] [address] [address] -3172 Apr, Acute non-recurrent maxillary sinusitis J01.00 [facility] [address] [id number] [place] [address] 01095- 7840 Apr, [facility] [id number] [place] [address] 83317- 7288 Feb, [facility] [id number] [place] [address] 09930- 4442 Feb, [facility] [id number] [place] [address] 03766- 9781 Feb, [facility] [id number] [place] [address] 75301- 5806 Feb, [facility] [address] [place] [address] 50588- 3723 Feb, [facility] [id number] [place] [address] 17144- 6654 Feb, [facility] [id number] [place] [address] 78198- 3285 Jan, RLS (restless legs syndrome) G25.81 ; Osteoarthritis of spine with radiculopathy, cervical region M47.22 ; Lumbar neuritis M54.16 and Left sciatic nerve pain M54.32 [facility] [id number] [place] [address] 77923- 5575 Jan, [facility] [address], [place] [address]- 3366 Dec, [facility] [address], [place] [address]- 2482 Nov, [facility] [address], [place] [address]- 4824 Nov, [facility] [address] [id number] [place] [address] 93396- 3235 Nov, [facility] [address], [place] [address]- 7189 Nov, Restless leg syndrome G25.81 and Controlled type 2 diabetes mellitus without complication, without long-term current use of insulin E11.9 [place] [address] [address]- 0923 Nov, [facility] [address] [place] [address] 95908- 4363 Oct, [facility] [address], [place] [address]- 2696 Oct, [facility] [address], [place] [address]- 5150 Oct, [facility] [address], [place] [address]- 8791 Oct, 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 lung screening R93.8 [facility] [address] [address]- 1991 Oct, [facility] [address], [place] [address]- 3932 September, [facility] [address], [place] [address]- 2004 September, Physical exam, annual Z00.00 ; Nicotine dependence, uncomplicated, unspecified nicotine product type F17.200 ; Screening breast examination Z12.39 ; Restless leg syndrome G25.81 and Mild persistent asthma without complication J45.30 [facility] [address] [place] [id number] [place] [address] 91150- 6276 September, [facility] [id number] [place] [address] 30731- 5960 September, [facility] [id number] [place] [address] 04728- 3840 Aug, [facility] [address] [id number] [place] [address] 70910- 2701 09 Jul, 2015 Dental examination Z01.20 and Dental caries K02.9 [place] [address] 52458- 1564 Jul, [facility] [address] [id number] [place] [address] 41927- 3135 Jul, Diabetes mellitus type 2, controlled E11.9 and Pain in unspecified joint M25.50 [facility] [address] [id number] [place] [address] 58765- 5462 Jul, [facility] [address] [id number] [place] [address] 85818- 3490 Jun, Dental examination Z01.20 [facility] [address] [id number] [place] [address] 75716- 6748 May, [facility] [address] [id number] [place] [address] 24220- 9814 May, [facility] [id number] [place] [address] 20191- 5289 Apr, [facility] [id number] [place] [address] 48217- 6579 Mar, [facility] [address] [id number] [place] [address] 85757- 8314 Mar, Acute sinusitis J01.90 [facility] [address] [id number] [place] [address] 76095- 7215 Feb, [facility] [address], [place] [address]- 6384 Jan, Flu vaccine need V04.81 [facility] [id number] [place] [address] 58358- 8979 Jan, [facility] [id number] [place] [address] 38103- 1152 Jan, Pain in joint, site unspecified 719.40 [facility] [id number] [place] [address] 18983- 0417 Dec, Pain in joint, site unspecified 719.40 [facility] [address] 07526- 5671 Dec, [facility] [id number] [place] [address] 30402- 2545 Dec, [facility] [id number] [place] [address] 06811- 9534 Dec, Sciatica 724.3 ; Restless legs syndrome [RLS] 333.94 and Encounter for smoking cessation counseling V65.42 [facility] [address] [id number] [place] [address] 27211- 6234 Dec, Nicotine dependence 305.1 [facility] [id number] [place] [address] 89737- 6336 Nov, [facility] [id number] [place] [address] 77294- 5925 Oct, [facility] [id number] [place] [address] 03124- 2560 Oct, [facility] [address] [id number] [place] [address] 02724- 7963 September, [facility] [id number] [place] [address] 96533- 9260 Aug, [facility] [address] [place] [address]- 2643 Aug, [facility] [place] [facility] [address] [id number] [place] [address]- 9445 Jul, [facility] [place] [facility] [address] [id number] [place] [address]- 7533 Jul, [facility] [place] [facility] [address] [id number] [place] [address]- 0504 Jul, [facility] [place] [facility] [address] [id number] [place] [address]- 6712 Jun, [facility] [place] [facility] [address] [id number] [place] [address]- 0132 Jun, [facility] [place] [facility] [address] [id number] [place] [address]- 4211 Jun, [facility] [place] [facility] [address] [id number] [place] [address]- 6761 Jun, [facility] [place] [facility] [address] [id number] [place] [address]- 9397 May, [facility] [place] [facility] [address] [id number] [place] [address]- 2723 May, [facility] [place] [facility] [address] [id number] [place] [address]- 3492 May, [facility] [place] [facility] [address] [id number] [place] [address]- 0688 May, [facility] [place] [facility] [address] [id number] [place] [address]- 6687 May, [facility] [place] [facility] [address] [id number] [place] [address]- 7709 May, [facility] [place] [facility] [address] [id number] [place] [address]- 4346 May, [facility] [place] [facility] [address] [id number] [place] [address]- 9625 Apr, [facility] [place] [facility] [address] [id number] [place]- 7217 Apr, [facility] [place] [facility] [address] [id number] [place] [address]- 6336 Apr, [facility] [place] [facility] [address] [id number] [place] 4334 Apr, [facility] [place] [facility] [address] [id number] [place] [address]- 9712 Apr, [facility] [place] [facility] [address] [id number] [place]- 5757 Apr, [facility] [place] [facility] [address] [id number] [place]- 7368 Apr, [facility] [place] [facility] [address] [id number] [place] [address]- 8520 Apr, [facility] [place] [facility] [address] [id number] [place] [address]- 2113 Apr, [facility] [place] [facility] [address] [id number] [place] [address]- 1335 Apr, [facility] [place] [facility] [address] [id number] [place] [address]- 7413 Mar, [facility] [place] [facility] [address] [id number] [place] [address]- 2075 Mar, [facility] [place] [facility] [address] [id number] [place] [address]- 8905 Mar, [facility] [place] [facility] [address] [id number] [place] [address]- 6961 Mar, [facility] [place] [facility] [address] [id number] [place] [address]- 4906 Mar, [facility] [place] [facility] [address] [id number] [place] [address]- 9362 Mar, [facility] [place] [facility] [address] [id number] [place] [address]- 0259 15 Feb, 2014 [facility] [place] [facility] [address] [id number] [place] [address]- 3014 15 Feb, 2014 [facility] [place] [facility] [address] [id number] [place] [address]- 6415 Feb, [facility] [place] [facility] [address] [id number] [place] [address]- 2605 Feb, [facility] [place] [facility] [address] [id number] [place] [address]- 6790 Feb, [facility] [place] [facility] [address] [id number] [place] [address]- 6305 Feb, [facility] [place] [facility] [address] [id number] [place] [address]- 0509 Jan, [facility] [place] [facility] [address] [id number] [place] [address]- 9218 Jan, [facility] [place] [facility] [address] [id number] [place] [address]- 7311 Jan, [facility] [place] [facility] [address] [id number] [place] [address]- 8700 Jan, [facility] [place] [facility] [address] [id number] [place] [address]- 0361 Dec, [facility] [place] [facility] [address] [id number] [place] [address]- 5567 Dec, [facility] [place] [facility] [address] [id number] [place] [address]- 6932 Dec, [facility] [place] [facility] [address] [id number] [place] [address]- 4001 Dec, [facility] [place] [facility] [address] [id number] [place] [address]- 4821 Dec, [facility] [place] [facility] [address] [id number] [place] [address]- 7595 16 Nov, 2013 [facility] [place] [facility] [address] [id number] [place] [address]- 0479 16 Nov, 2013 [facility] [place] [facility] [address] [id number] [place] [address]- 7571 15 Nov, 2013 [facility] [place] [facility] [address] [id number] [place] [address]- 9232 15 Nov, 2013 [facility] [place] [facility] [address] [id number] [place] [address]- 4587 15 Nov, 2013 [facility] [place] [facility] [address] [id number] [place] [address]- 7656 15 Nov, 2013 [facility] [place] [facility] [address] [id number] [place] [address]- 2731 16 Oct, 2013 [facility] [place] [facility] [address] [id number] [place] [address]- 0212 16 Oct, 2013 [facility] [place] [facility] [address] [id number] [place] [address]- 1555 16 Sep, 2013 [facility] [place] [facility] [address] [id number] [place] [address]- 0485 16 Sep, 2013 [facility] [place] [facility] [address] [id number] [place] [address] 14 Sep, 2013 [facility] [place] [facility] [address] [id number] [place] [address] 14 Sep, 2013 [facility] [place] [facility] [address] [id number] [place] [address] 14 Aug, 2013 [facility] [place] [facility] [address] [id number] [place] [address] 78[address] 14 Aug, 2013 [facility] [place] [facility] [address] [id number] [place] [address] 17 Jul, 2013 [facility] [place] [facility] [address] [id number] [place] [address] 17 Jul, 2013 [facility] [place] [facility] [address] [id number] [place] [address] 14 Jul, 2013 [facility] [place] [facility] [address] [id number] [place] [address] 14 Jul, 2013 [facility] [place] [facility] [address] [id number] [place] [address] Jun, [facility] [place] [facility] [address] [id number] [place] [address] Jun, [facility] [place] [facility] [address] [id number] [place] [address] Jun, [facility] [place] [facility] [address] [id number] [place] [address] Jun, [facility] [place] [facility] [address] [id number] [place] [address] May, [facility] [place] [facility] [address] [id number] [place] [address] May, [facility] [place] [facility] [address] [id number] [place] [address] May, [facility] [place] [facility] [address] [id number] [place] [address] May, [facility] [place] [facility] [address] [id number] [place] [address] Apr, [facility] [place] [facility] [address] [id number] [place] [address] Apr, [facility] [place] [facility] [address] [id number] [place] [address] Apr, [facility] [place] [facility] [address] [id number] [place] [address] Mar, [facility] [place] [facility] [address] [id number] [place] [address] Mar, [facility] [place] [facility] [address] [id number] [place] [address]259 Mar, [facility] [place] [facility] [address] [id number] [place] [address]696 Mar, [facility] [address] [id number] [place] [address] Feb, 2012 [facility] [place] [facility] [address] [id number] [place] [address] Feb, [facility] [address] [id number] [place] [address] Feb, [facility] [place] [facility] [address] [id number] [place] [address] Feb, [facility] [address] [id number] [place] [address] Feb, [facility] [place] [facility] [address] [id number] [place] [address] Feb, [facility] [address] [id number] [place] [address] Feb, [facility] [address] [id number] [place] [address] Feb, [facility] [place] [facility] [address] [id number] [place] [address] Jan, [facility] [place] [facility] [address] [id number] [place] [address] 1536 Jan, [facility] [place] [facility] [address] [id number] [place] [address] Jan, [facility] [place] [facility] [address] [id number] [place] [address] Dec, [facility] [place] [facility] [address] [id number] [place] [address] Dec, [facility] [place] [facility] [address] [id number] [place] [address] Nov, [facility] [place] [facility] [address] [id number] [place] [address] Nov, [facility] [place] [facility] [address] [id number] [place] [address]- [address] Nov, [facility] [address] [id number] [place] [address] Nov[facility] [address] [id number] [place] [address] Oct, [facility] [place] [facility] [address] [id number] [place] [address] Oct, [facility] [address] [id number] [place] [address] Oct, [facility] [address] [id number] [place] [address] September, [facility] [address] [id number] [place] [address] September, [facility] [address] [id number] [place] [address] September, [facility] [address] [id number] [place] [address] September, [facility] [address] [id number] [place] [address] Aug, [facility] [address] [id number] [place] [address] Aug, [facility] [place] [facility] [address] [id number], [place] [address] Jul, [facility] [place] [facility] [address] [id number] [place] [address] Jul, [facility] [place] [facility] [address] [id number] [place] [address] Jul, [facility] [place] [facility] [address] [id number] [place] [address] Jul, [facility] [place] [facility] [address] [id number], [place] [address] Jul, [facility] [address] [id number] [place] [address] Jun, [facility] [address] [id number] [place] [address] Jun, [facility] [address] [id number] [place] [address] Jun, [facility] [address] [id number] [place] [address] May, [facility] [address] [id number] [place] [address] May, [facility] [address] [id number] [place] [address] 14[address] May, [facility] [address] [id number] [place] [address] Apr, [facility] [address] [id number] [place] [address] 4[address] Apr, [facility] [address] [id number] [place] [address] Apr, [facility] [address] [facility] [id number] [place] [address] Apr, [facility] [address] [id number] [place] [address] Apr, [facility] [address] [id number] [place] [address] Apr, [facility] [address] [id number] [place] [address] Apr, [facility] [address] [id number] [place] [address] Apr, [facility] [address] [facility] [id number] [place] [address] Mar, [facility] [place] [facility] [address] [id number] [place] [address] 38[address] Mar, [facility] [place] [facility] [address] [id number] [place] [address] 1386 Mar, [facility] [place] [facility] [address] [id number] [place] [address] Mar, [facility] [place] [facility] [address] [id number] [place] [address]286 Mar, [facility] [place] [facility] [address] [id number] [place] [address] 9065 Mar, [facility] [place] [facility] [address] [id number] [place] [address] Mar, [facility] [place] [facility] [address] [id number] [place] [address] Mar, [facility] [place] [facility] [address] [id number] [place] [address] 4[address] Mar, [facility] [place] [facility] [address] [id number] [place] [address] Mar, [facility] [place] [facility] [address] [id number] [place] [address] Feb, [facility] [place] [facility] [address] [id number] [place] [address] 46[address] Feb, [facility] [place] [facility] [address] [id number] [place] [address] 9510 Feb, [facility] [place] [facility] [address] [id number] [place] [address]24 11 Jan, 2012 [facility] [place] [facility] [address] [id number] [place] [address] 07 Jan, 2012 [facility] [place] [facility] [address] [id number] [place] [address] 07 Jan, 2012 [facility] [place] [facility] [address] [id number] [place] [address] 1459 Dec, [facility] [place] [facility] [address] [id number] [place] [address] Dec, [facility] [place] [facility] [address] [id number] [place] [address] 3216 Dec, [facility] [place] [facility] [address] [id number] [place] [address] 2546 Dec, [facility] [place] [facility] [address] [id number] [place] [address] Dec, [facility] [place] [facility] [address] [id number] [place] [address]647 Nov, [facility] [place] [facility] [address] [id number] [place] [address] 4396 Nov, [facility] [place] [facility] [address] [id number] [place] [address] 9226 Oct, [facility] [place] [facility] [address] [id number] [place] [address] September, [facility] [place] [facility] [address] [id number] [place] [address] 1826 September, [facility] [place] [facility] [address] [id number] [place] [address] September, [facility] [place] [facility] [address] [id number] [place] [address]- [address] September, [facility] [place] [facility] [address] [id number] [place] [address] 2546 September, [facility] [place] [facility] [address] [id number] [place] [address] 4256 Aug, [facility] [place] [facility] [address] [id number] [place] [address]- [address]46 16 Jul, 2011 [facility] [place] [facility] [address] [id number] [place] [address]- 2546 Jul, [facility] [place] [facility] [address] [id number] [place] [address]- 5329 14 Jul, 2011 [facility] [address] [id number] [place] [address]- [address] 14 Jul, 2011 [facility] [place] [facility] [address] [id number] [place] [address] 2546 09 Jul, 2011 [facility] [address] [id number] [place] [address]- 3388 09 Jul, 2011 [facility] [place] [facility] [address] [id number] [place] [address] 254 08 Jul, 2011 [facility] [address] [id number] [place] [address]- 5[address] Jul, [facility] [place] [facility] [address] [id number] [place] [address] 4806 27 Jun, 2011 [facility] [place] [facility] [address] [facility] [id number] [place] [address]- 6365 16 Jun, 2011 [facility] [place] [facility] [address] [facility] [id number] [place] [address]- 2424 Jun, [facility] [place] [facility] [address] [facility] [id number] [place] [address] 6684 May, [facility] [address] [facility] [id number] [place] [address]- [address]44 Apr, [facility] [place] [facility] [address] [id number] [place] [address]- 5336 Apr, [facility] [place] [facility] [address] [id number] [place] [address]- 2546 Mar, [facility] [place] [facility] [address] [id number] [place] [address]- 6106 Mar, [facility] [place] [facility] [address] [facility] [id number] [place] [address]- 2546 Mar, [facility] [place] [facility] [address] [facility] [id number] [place] [address] Feb, [facility] [place] [facility] [address] [id number] [place] [address]- 9333 Feb, [facility] [place] [facility] [address] [id number] [place] [address]- 4763 Feb, [facility] [place] [facility] [address] [id number] [place] [address]- 4758 Apr, [facility] [place] [facility] [address] [id number] [place] [address]- 4799 Apr, [facility] [place] [facility] [address] [id number] [place] [address]- 0967 Mar, [facility] [place] [facility] [address] [id number] [place] [address]- 1709 Mar, [facility] [place] [facility] [address] [id number] [place] [address]- 6200 Mar, [facility] [place] [facility] [address] [id number], [place] [address]- 2298 Mar, [facility] [place] [facility] [address] [id number] [place] [address]- 6752 Mar, [facility] [place] [facility] [address] [id number], [place] [address]- 2286 Feb, [facility] [place] [facility] [address] [id number], [place] [address]- 5172 September, [facility] [place] [facility] [address] [id number], [place] [address] 3[address] Aug, [facility] [place] [facility] [address] [id number], [place] [address]- 96[address] Apr, [facility] [place] [facility] [address] [id number], [place] [address]- 7888 15 Apr, 2009 [facility] [place] [facility] [address] [id number], [place] [address]- 6500 18 Mar, 2009 [facility] [place] [facility] [address] [id number], [place] [address] Mar, [facility] [id number], [place] [address]- 9718 Mar, [facility] [id number], [place] [address] 9897 Feb, [facility] [address] [id number], [place] [address] 2627 Jan, [facility] [id number] [place] [address]- 6038 Dec, [facility] [id number] [place] [address]- 7668 Nov, [facility] [id number] [place] [address]- 0691 Oct, [facility] [id number] [place] [address]- 2531 Apr, [facility] [id number], [place] [address]- 5225 Apr, [facility] [id number] [place] [address]- 3786 Apr, [facility] [id number], [place] [address] 9[address] Feb, IMMUNIZATIONS No Known Immunizations SOCIAL HISTORY Never Assessed REASON FOR VISIT Requests return call PLAN OF CARE VITAL SIGNS MEDICATIONS Medication Instructions Dosage Frequency Start Date End Date Duration Status Levaquin 500 MG Orally Once a day 1 tablet 24h Jul, Jul, 10 day(s) Active RESULTS No Results PROCEDURES No Known [...]
--- OUTSIDE RECORDS SUMMARY | 2017-12-04 17:44 | XMS REPORT ---
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 Name Role Phone NURIS CEDRIC Unavailable PROBLEMS Type Condition ICD9-CM Code OND75-FL Code Onset Dates Condition Status SNOMED Code Problem Nicotine dependence, uncomplicated, unspecified nicotine product type F17.200 Active 77928829 Problem Restless leg syndrome G25.81 Active 55631726 Problem Mild persistent asthma without complication J45.30 Active 779037430 Problem RLS (restless legs syndrome) G25.81 Active 74377053 Problem Hypertension, benign I10 Active 62931985 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 613689543754561 Problem Abnormal CT lung screening R93.8 Active 120386151 Problem Essential hypertension I10 Active 55358135 Problem Diabetes mellitus type 2, controlled E11.9 Active 110325655 ALLERGIES No Information SOCIAL HISTORY Never Assessed PLAN OF CARE VITAL SIGNS MEDICATIONS Medication Instructions Dosage Frequency Start Date End Date Duration Status Hydrocodone-Acetaminophen 10-325 MG Orally every 6 hrs-MUST HAVE APPT FOR FURTHER REFILLS take 1 tablet September, 28 days Active RESULTS No Results PROCEDURES No Known procedures IMMUNIZATIONS No Known Immunizations MEDICAL (GENERAL) HISTORY Type Description Date Medical [...]
--- OUTSIDE RECORDS SUMMARY | 2017-12-04 17:44 | XMS REPORT ---
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 Name Role Phone NURIS CEDRIC Unavailable PROBLEMS Type Condition ICD9-CM Code ENE91-XX Code Onset Dates Condition Status SNOMED Code Problem Nicotine dependence, uncomplicated, unspecified nicotine product type F17.200 Active 96665015 Problem Restless leg syndrome G25.81 Active 91488096 Problem Mild persistent asthma without complication J45.30 Active 724369195 Problem RLS (restless legs syndrome) G25.81 Active 13608198 Problem Hypertension, benign I10 Active 14591637 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
--- OUTSIDE RECORDS SUMMARY | 2017-12-04 17:44 | XMS REPORT ---
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 Name Role Phone CEDRIC LAWLER Unavailable PROBLEMS Type Condition ICD9-CM Code [id number] Code Onset Dates Condition Status SNOMED Code Problem Nicotine dependence, uncomplicated, unspecified nicotine product type F17.200 Active 12005421 Problem Ab[address] lung screening R93.8 Active 370533980 Problem Mild persistent asthma without complication J45.30 Active 932478316 Problem Restless leg syndrome G25.81 Active 69316016 Problem Osteoarthritis of spine with radiculopathy, cervical region M47.22 Active 222249302 Problem RLS (restless legs syndrome) G25.81 Active 61163732 Problem Diabetes mellitus type 2, controlled E11.9 Active 402368641 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 424050571367887 Problem Hypertension, benign I10 Active 61604422 Problem Essential hypertension I10 Active 71157303 ALLERGIES No Information ENCOUNTERS Encounter Location Date Diagnosis [place] [id number] [place] [address] 88026- 0665 Oct, [place] [address] [place] [id number] [place] [address] 92999- 8727 Oct, [place] [id number] [place] [address] 64091- 0581 Oct, Skin tags, multiple acquired L91.8 [place] [address] [id number] [place] [address] 94450- 4313 Oct, [place] [address] [id number] [place] [address] 26911- 9642 Oct, Diabetes mellitus type 2, controlled E11.9 and Osteoarthritis of spine with radiculopathy, cervical region M47.22 [place] [id number] [address] [address] September, Osteoarthritis of spine with radiculopathy, cervical region M47.22 ; Coughing R05 ; Chronic pruritus L29.9 and Breast cancer screening Z12.31 [facility] [address] [address] September, Diabetes mellitus type 2, controlled E11.9 [facility] [address] [address] Jul, Chronic cough R05 [facility] [id number] [place] [address], [place] [address]- 5736 Jul, [facility] [id number] [place] [address] 49814- 9392 Jul, Diabetes mellitus type 2, controlled E11.9 [facility] [address] [address]- 6754 Jul, [facility] [address] [address]- 3915 Jul, [facility] [address] [address]- 0567 Jun, [facility] [address] [address]- 5101 Jun, Diabetes mellitus type 2, controlled E11.9 [facility] [address] [address]- 1746 Jun, [facility] [address] 8137 May, [facility] [id number] 0986 May, Diabetes mellitus type 2, controlled E11.9 [facility] [address] [address]26 Apr, [facility] [id number] [place] [address] 50499- 4355 Apr, Pneumonia of right upper lobe due to infectious organism J18.1 [place] [address] 42972- 2608 Mar, [place] [address] 27200- 6447 Mar, [place] [address] 97912- 7501 Mar, [place] [address] 96087- 2488 03 Mar, 2017 Coughing R05 and SOB (shortness of breath) R06.02 [place] [address] 23519- 6982 Mar, Diabetes mellitus type 2, controlled E11.9 ; Coughing R05 and SOB (shortness of breath) R06.02 [place] [address] 10654- 7165 Feb, [place] [address] 23736- 3418 Feb, [place] [address] 19401- 3601 Jan, Hypertension, benign I10 and RLS (restless legs syndrome) G25.81 [place] [address] 03793- 7416 Jan, [place] [address] 51053- 3882 Dec, Pain in unspecified joint M25.50 and Mild persistent asthma without complication J45.30 [place] [address] 06470- 2692 Dec, [place] [address] 78409- [address] Dec, [address] lung screening R93.8 [facility] [address] [address]- 3419 Dec, [facility] [id number] [place] [address] 68126- 8971 Nov, Screening for breast cancer Z12.31 [facility] [id number] [place] [address] 81842- 7690 Nov, [facility] [id number] [place] [address] 77611- 9390 Nov, Essential hypertension I10 [facility] [id number] [place] [address] 08367- 9517 Nov, Essential hypertension I10 [facility] [id number] [place] [address] 70329- 4881 Oct, Acute non-recurrent maxillary sinusitis J01.00 [facility] [id number] [place] [address] 27788- 7760 Oct, [facility] [id number] [place] [address] 10847- 8636 September, Acute non-recurrent maxillary sinusitis J01.00 [facility] [address] [place] [address] 56064 -4298 September, Low back pain M54.5 [facility] [address] [place] [address] 73207- 4861 September, [facility] [address] [place] [address] 74351- 6828 Aug, Acute non-recurrent maxillary sinusitis J01.00 [facility] [address] [address] Aug, Dental examination Z01.20 [facility] [address] [place] [address] 33851- 1645 Aug, [facility] [id number] [place] [address] 31600- 6613 Aug, [facility] [address] [address]- 2835 Aug, [facility] [id number] [place] [address] 12369- 2365 Aug, Acute sinusitis J01.90 [facility] [id number] [place] [address] 57244- 6784 Jul, [facility] [id number] [place] [address] 48233- 4595 Jul, [facility] [address] [id number] [place] [address] 68373- 8128 Jul, [facility] [address] [id number] [place] [address] 46932- 8327 Jul, [facility] [address] [id number] [place] [address] 25896- 1310 Jul, Frequent urination R35.0 and Acute cystitis with hematuria N30.01 [facility] [address] [place] [address] 82850- 0854 Jul, [facility] [id number] [place] [address] 08785- 7615 Jun, [facility] [id number] [place] [address] 89682- 2652 Jun, Acute sinusitis J01.90 [facility] [id number] [place] [address] 77184- 5258 Jun, Diabetes mellitus type 2, controlled E11.9 ; Cough R05 ; Acute non-recurrent maxillary sinusitis J01.00 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 [facility] [address] [address]- 7845 May, [facility] [address] [id number] [place] [address] 54328- 6792 May, [facility] [address], [place] [address]- 3870 May, [facility] [id number] [place] [address] 90793- 1152 Apr, [facility] [id number] [address]- 1415 Apr, [facility] [id number] [place] [address] 19454- 0612 Apr, [facility] [address], [place] [address] -8273 Apr, Acute non-recurrent maxillary sinusitis J01.00 [facility] [id number] [place] [address] 54408- 1084 Apr, [facility] [id number] [place] [address] 36353- 6896 Feb, [facility] [id number] [place] [address] 67113- 4790 Feb, [facility] [id number] [place] [address] 54959- 8743 Feb, [facility] [id number] [place] [address] 16718- 8549 Feb, [facility] [id number] [place] [address] 35839- 9026 Feb, [facility] [id number] [place] [address] 92649- 3325 Feb, [facility] [id number] [place] [address] 00477- 5267 Jan, RLS (restless legs syndrome) G25.81 ; Osteoarthritis of spine with radiculopathy, cervical region M47.22 ; Lumbar neuritis M54.16 and Left sciatic nerve pain M54.32 [facility] [id number] [place] [address] 73724- 5589 Jan, [facility] [address] [address]- 0417 Dec, [facility] [address], [place] [address]- 3701 Nov, [facility] [address] [address]- 4581 Nov, [facility] [address] [id number] [place] [address] 90673- 4756 Nov, [facility] [address], [place] [address]- 2452 Nov, Restless leg syndrome G25.81 and Controlled type 2 diabetes mellitus without complication, without long-term current use of insulin E11.9 [place] [address] [address]- 7114 Nov, [facility] [address] [place] [address] 40542- 3008 Oct, [facility] [address] [address]- 3206 Oct, [facility] [address] [address]- 5950 Oct, [facility] [address] [address]- 9967 Oct, 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 lung screening R93.8 [facility] [address], [place] [address]- 6679 Oct, [facility] [address], [place] [address]- 3754 September, [facility] [address] [address]- 3176 September, Physical exam, annual Z00.00 ; Nicotine dependence, uncomplicated, unspecified nicotine product type F17.200 ; Screening breast examination Z12.39 ; Restless leg syndrome G25.81 and Mild persistent asthma without complication J45.30 [facility] [id number] [place] [address] 05723- 9731 September, [facility] [id number] [place] [address] 81719- 6749 September, [facility] [id number] [place] [address] 16529- 3762 Aug, [facility] [address] [id number] [place] [address] 71744- 6590 09 Jul, 2015 Dental examination Z01.20 and Dental caries K02.9 [place] [address] 33791- 9304 Jul, [facility] [address] [id number] [place] [address] 42470- 3737 Jul, Diabetes mellitus type 2, controlled E11.9 and Pain in unspecified joint M25.50 [facility] [id number] [place] [address] 62877- 3960 Jul, [facility] [id number] [place] [address] 67902- 8509 Jun, Dental examination Z01.20 [facility] [id number] [place] [address] 96715- 9282 May, [facility] [id number] [place] [address] 75537- 4590 May, [facility] [id number] [place] [address] 15089- 0969 Apr, [facility] [id number] [place] [address] 52526- 3518 Mar, [facility] [id number] [place] [address] 44741- 0124 Mar, Acute sinusitis J01.90 [facility] [id number] [place] [address] 58157- 7441 Feb, [facility] [address], [place] [address]- 4870 Jan, Flu vaccine need V04.81 [facility] [id number] [place] [address] 71067- 7637 Jan, [facility] [id number] [place] [address] 24976- 3525 Jan, Pain in joint, site unspecified 719.40 [facility] [id number] [place] [address] 71481- 0524 Dec, Pain in joint, site unspecified 719.40 [facility] [address] 19508- 6709 Dec, [facility] [id number] [place] [address] 80771- 1135 Dec, [facility] [id number] [place] [address] 35681- 4951 Dec, Sciatica 724.3 ; Restless legs syndrome [RLS] 333.94 and Encounter for smoking cessation counseling V65.42 [facility] [id number] [place] [address] 56713- 4526 Dec, Nicotine dependence 305.1 [facility] [id number] [place] [address] 33995- 7118 Nov, [facility] [id number] [place] [address] 05575- 8303 Oct, [facility] [id number] [place] [address] 85002- 5604 Oct, [facility] [id number] [place] [address] 84621- 7087 September, [facility] [id number] [place] [address] 20773- 2567 Aug, [facility] [address] [place] [address]- 7339 Aug, [facility] [place] [facility] [address] [id number] [place] [address]- 8474 Jul, [facility] [place] [facility] [address] [id number] [place] [address]- 6966 Jul, [facility] [place] [facility] [address] [id number] [place] [address]- 2387 Jul, [facility] [place] [facility] [address] [id number] [place] [address]- 7789 Jun, [facility] [place] [facility] [address] [id number] [place] [address]- 8986 Jun, [facility] [place] [facility] [address] [id number] [place] [address]- 2836 Jun, [facility] [place] [facility] [address] [id number] [place] [address]- 6661 Jun, [facility] [place] [facility] [address] [id number] [place] [address]- 8522 May, [facility] [place] [facility] [address] [id number] [place] [address]- 3710 May, [facility] [place] [facility] [address] [id number] [place] [address]- 4212 May, [facility] [place] [facility] [address] [id number] [place] [address]- 7354 May, [facility] [place] [facility] [address] [id number] [place] [address]- 3329 May, [facility] [place] [facility] [address] [id number] [place] [address]- 4249 May, [facility] [place] [facility] [address] [id number] [place] [address]- 7276 May, [facility] [place] [facility] [address] [id number] [place] [address]- 0810 Apr, [facility] [place] [facility] [address] [id number] [place] 5051 Apr, [facility] [place] [facility] [address] [id number] [place] [address]- 6156 Apr, [facility] [place] [facility] [address] [id number] [place] 1584 Apr, [facility] [place] [facility] [address] [id number] [place] [address]- 4574 Apr, [facility] [place] [facility] [address] [id number] [place] 0114 Apr, [facility] [place] [facility] [address] [id number] [place] 1789 Apr, [facility] [place] [facility] [address] [id number] [place] [address]- 0881 Apr, [facility] [place] [facility] [address] [id number] [place] [address]- 1873 Apr, [facility] [place] [facility] [address] [id number] [place] [address]- 6186 Apr, [facility] [place] [facility] [address] [id number] [place] [address]- 3152 Mar, [facility] [place] [facility] [address] [id number] [place] [address]- 9073 Mar, [facility] [place] [facility] [address] [id number] [place] [address]- 8565 Mar, [facility] [place] [facility] [address] [id number] [place] [address]- 3305 Mar, [facility] [place] [facility] [address] [id number] [place] [address]- 2282 Mar, [facility] [place] [facility] [address] [id number] [place] [address]- 9630 Mar, [facility] [place] [facility] [address] [id number] [place] [address]- 2233 15 Feb, 2014 [facility] [place] [facility] [address] [id number] [place] [address]- 9387 15 Feb, 2014 [facility] [place] [facility] [address] [id number] [place] [address]- 1244 Feb, [facility] [place] [facility] [address] [id number] [place] [address]- 2558 Feb, [facility] [place] [facility] [address] [id number] [place] [address]- 3449 Feb, [facility] [place] [facility] [address] [id number] [place] [address]- 1954 Feb, [facility] [place] [facility] [address] [id number] [place] [address]- 5206 Jan, [facility] [place] [facility] [address] [id number] [place] [address]- 8435 Jan, [facility] [place] [facility] [address] [id number] [place] [address]- 5980 Jan, [facility] [place] [facility] [address] [id number] [place] [address]- 7399 Jan, [facility] [place] [facility] [address] [id number] [place] [address]- 0005 Dec, [facility] [place] [facility] [address] [id number] [place] [address]- 1493 Dec, [facility] [place] [facility] [address] [id number] [place] [address]- 2200 Dec, [facility] [place] [facility] [address] [id number] [place] [address]- 0141 Dec, [facility] [place] [facility] [address] [id number] [place] [address]- 1123 Dec, [facility] [place] [facility] [address] [id number] [place] [address]- 2984 16 Nov, 2013 [facility] [place] [facility] [address] [id number] [place] [address]- 9631 16 Nov, 2013 [facility] [place] [facility] [address] [id number] [place] [address]- 5181 15 Nov, 2013 [facility] [place] [facility] [address] [id number] [place] [address]- 0562 15 Nov, 2013 [facility] [place] [facility] [address] [id number] [place] [address]- 2559 15 Nov, 2013 [facility] [place] [facility] [address] [id number] [place] [address]- 5116 15 Nov, 2013 [facility] [place] [facility] [address] [id number] [place] [address]- 4817 16 Oct, 2013 [facility] [place] [facility] [address] [id number] [place] [address]- 6361 16 Oct, 2013 [facility] [place] [facility] [address] [id number] [place] [address]- 5469 16 Sep, 2013 [facility] [place] [facility] [address] [id number] [place] [address] 16 Sep, 2013 [facility] [place] [facility] [address] [id number] [place] [address] 14 Sep, 2013 [facility] [place] [facility] [address] [id number] [place] [address] 14 Sep, 2013 [facility] [place] [facility] [address] [id number] [place] [address] 14 Aug, 2013 [facility] [place] [facility] [address] [id number] [place] [address] 14 Aug, 2013 [facility] [place] [facility] [address] [id number] [place] [address] 17 Jul, 2013 [facility] [place] [facility] [address] [id number] [place] [address] 17 Jul, 2013 [facility] [place] [facility] [address] [id number] [place] [address] 14 Jul, 2013 [facility] [place] [facility] [address] [id number] [place] [address] 14 Jul, 2013 [facility] [place] [facility] [address] [id number] [place] [address] Jun, [facility] [place] [facility] [address] [id number] [place] [address] Jun, [facility] [place] [facility] [address] [id number] [place] [address] Jun, [facility] [place] [facility] [address] [id number] [place] [address] Jun, [facility] [place] [facility] [address] [id number] [place] [address] May, [facility] [place] [facility] [address] [id number] [place] [address] May, [facility] [place] [facility] [address] [id number] [place] [address] May, [facility] [place] [facility] [address] [id number] [place] [address] May, [facility] [place] [facility] [address] [id number] [place] [address] Apr, [facility] [place] [facility] [address] [id number] [place] [address] Apr, [facility] [place] [facility] [address] [id number] [place] [address] Apr, [facility] [place] [facility] [address] [id number] [place] [address] Mar, [facility] [place] [facility] [address] [id number] [place] [address] Mar, [facility] [place] [facility] [address] [id number] [place] [address] Mar, [facility] [place] [facility] [address] [id number] [place] [address] Mar, [facility] [address] [id number] [place] [address] Feb, 2012 [facility] [place] [facility] [address] [id number] [place] [address] Feb, [facility] [address] [id number] [place] [address] Feb, [facility] [place] [facility] [address] [id number] [place] [address] Feb, [facility] [address] [id number] [place] [address] Feb, [facility] [place] [facility] [address] [id number] [place] [address] Feb, [facility] [address] [id number] [place] [address] Feb, [facility] [address] [id number] [place] [address] Feb, [facility] [place] [facility] [address] [id number] [place] [address] Jan, [facility] [place] [facility] [address] [id number] [place] [address] Jan, [facility] [place] [facility] [address] [id number] [place] [address] Jan, [facility] [place] [facility] [address] [id number] [place] [address] Dec, [facility] [place] [facility] [address] [id number] [place] [address] Dec, [facility] [place] [facility] [address] [id number] [place] [address] Nov, [facility] [place] [facility] [address] [id number] [place] [address] Nov, [facility] [place] [facility] [address] [id number] [place] [address] Nov, [facility] [address] [id number] [place] [address] Nov[facility] [address] [id number] [place] [address] Oct, [facility] [place] [facility] [address] [id number] [place] [address] Oct, [facility] [address] [id number] [place] [address] Oct, [facility] [address] [id number] [place] [address] September, [facility] [address] [id number] [place] [address] September, [facility] [address] [id number] [place] [address] September, [facility] [address] [id number] [place] [address] September, [facility] [address] [id number] [place] [address] Aug, [facility] [address] [id number] [place] [address] Aug, [facility] [place] [facility] [address] [id number] [address] Jul, [facility] [place] [facility] [address] [id number] [place] [address] Jul, [facility] [place] [facility] [address] [id number] [place] [address] Jul, [facility] [place] [facility] [address] [id number] [place] [address] Jul, [facility] [place] [facility] [address] [id number] [address] Jul, [facility] [address] [id number] [place] [address] Jun, [facility] [address] [id number] [place] [address] Jun, [facility] [address] [id number] [place] [address] Jun, [facility] [address] [id number] [place] [address] 90[address] May, [facility] [address] [id number] [place] [address] May, [facility] [address] [id number] [place] [address] May, [facility] [address] [id number] [place] [address] 39[address] Apr, [facility] [address] [id number] [place] [address] Apr, [facility] [address] [id number] [place] [address] 49[address] Apr, [facility] [address] [facility] [id number] [place] [address] Apr, [facility] [address] [id number] [place] [address] 28[address] Apr, [facility] [address] [id number] [place] [address] Apr, [facility] [address] [id number] [place] [address] Apr, [facility] [address] [id number] [place] [address] Apr, [facility] [address] [facility] [id number] [place] [address] Mar, [facility] [place] [facility] [address] [id number] [place] [address] Mar, [facility] [place] [facility] [address] [id number] [place] [address] 98[address] Mar, [facility] [place] [facility] [address] [id number] [place] [address] 164[address] Mar, [facility] [place] [facility] [address] [id number] [place] [address] 18[address] Mar, [facility] [place] [facility] [address] [id number] [place] [address] 44[address] Mar, [facility] [place] [facility] [address] [id number] [place] [address] 7983 Mar, [facility] [place] [facility] [address] [id number] [place] [address] 47[address] Mar, [facility] [place] [facility] [address] [id number] [place] [address] Mar, [facility] [place] [facility] [address] [id number] [place] [address] 118[address] Mar, [facility] [place] [facility] [address] [id number] [place] [address] Feb, [facility] [place] [facility] [address] [id number] [place] [address] Feb, [facility] [place] [facility] [address] [id number] [place] [address] 90[address] Feb, [facility] [place] [facility] [address] [id number] [place] [address] 11 Jan, 2012 [facility] [place] [facility] [address] [id number] [place] [address] 07 Jan, 2012 [facility] [place] [facility] [address] [id number] [place] [address] 07 Jan, 2012 [facility] [place] [facility] [address] [id number] [place] [address] Dec, [facility] [place] [facility] [address] [id number] [place] [address] Dec, [facility] [place] [facility] [address] [id number] [place] [address] 2896 Dec, [facility] [place] [facility] [address] [id number] [place] [address] 2546 Dec, [facility] [place] [facility] [address] [id number] [place] [address] 6616 Dec, [facility] [place] [facility] [address] [id number] [place] [address] 5272 Nov, [facility] [place] [facility] [address] [id number] [place] [address] 1646 Nov, [facility] [place] [facility] [address] [id number] [place] [address]- 0966 Oct, [facility] [place] [facility] [address] [id number] [place] [address] 0137 September, [facility] [place] [facility] [address] [id number] [place] [address] 7286 September, [facility] [place] [facility] [address] [id number] [place] [address] 7786 September, [facility] [place] [facility] [address] [id number] [place] [address] 3616 September, [facility] [place] [facility] [address] [id number] [place] [address] 2546 September, [facility] [place] [facility] [address] [id number] [place] [address] 1176 Aug, [facility] [place] [facility] [address] [id number] [place] [address]- [address]46 16 Jul, 2011 [facility] [place] [facility] [address] [id number] [place] [address] 2546 Jul, [facility] [place] [facility] [address] [id number] [place] [address]- 9152 14 Jul, 2011 [facility] [address] [id number] [place] [address]- 9448 14 Jul, 2011 [facility] [place] [facility] [address] [id number] [place] [address] 2546 09 Jul, 2011 [facility] [address] [id number] [place] [address]- 5851 09 Jul, 2011 [facility] [place] [facility] [address] [id number] [place] [address] 2543 08 Jul, 2011 [facility] [address] [id number] [place] [address]- 6313 Jul, [facility] [place] [facility] [address] [id number] [place] [address]- 8126 27 Jun, 2011 [facility] [place] [facility] [address] [facility] [id number] [place] [address]- 5879 16 Jun, 2011 [facility] [place] [facility] [address] [facility] [id number] [place] [address]- 7047 Jun, [facility] [place] [facility] [address] [facility] [id number] [place] [address]- 6992 May, [facility] [address] [facility] [id number] [place] [address]- 7052 Apr, [facility] [place] [facility] [address] [id number] [place] [address]- 6426 Apr, [facility] [place] [facility] [address] [id number] [place] [address]- 2546 Mar, [facility] [place] [facility] [address] [id number] [place] [address]- 5416 Mar, [facility] [place] [facility] [address] [facility] [id number] [place] [address]- 2546 Mar, [facility] [place] [facility] [address] [facility] [id number] [place] [address] Feb, [facility] [place] [facility] [address] [id number] [place] [address]- 5168 Feb, [facility] [place] [facility] [address] [id number] [place] [address]- 6288 Feb, [facility] [place] [facility] [address] [id number] [place] [address]- 4265 Apr, [facility] [place] [facility] [address] [id number] [place] [address]- 5499 Apr, [facility] [place] [facility] [address] [id number] [place] [address]- 8449 Mar, [facility] [place] [facility] [address] [id number] [place] [address]- 4740 Mar, [facility] [place] [facility] [address] [id number] [place] [address]- 8561 Mar, [facility] [place] [facility] [address] [id number], [place] [address]- 8184 Mar, [facility] [place] [facility] [address] [id number] [place] [address]- 6530 Mar, [facility] [place] [facility] [address] [id number], [place] [address]- 7996 Feb, [facility] [place] [facility] [address] [id number], [place] [address]- 6104 September, [facility] [place] [facility] [address] [id number], [place] [address]- 0424 Aug, [facility] [place] [facility] [address] [id number], [place] [address]- 4128 Apr, [facility] [place] [facility] [address] [id number], [place] [address]- 7332 15 Apr, 2009 [facility] [place] [facility] [address] [id number], [place] [address]- 4772 18 Mar, 2009 [facility] [place] [facility] [address] [id number], [place] [address]- 8788 Mar, [facility] [id number] [address]- [address] Mar, [facility] [id number] [place] [address]- 1528 Feb, [facility] [id number] [place] [address]- 5747 Jan, [facility] [id number] [place] [address]- 3885 Dec, [facility] [id number] [place] [address]- 5126 Nov, [facility] [id number] [place] [address]- 6697 Oct, [facility] [id number] [place] [address]- 5886 Apr, [facility] [id number] [address]- 0478 Apr, [facility] [id number] [place] [address]- 8113 Apr, [facility] [id number] [address]- 47[address] Feb, IMMUNIZATIONS No Known Immunizations SOCIAL HISTORY Never Assessed REASON FOR VISIT Refill request PLAN OF CARE VITAL SIGNS MEDICATIONS Unknown [...]
--- OUTSIDE RECORDS SUMMARY | 2017-12-04 17:44 | XMS REPORT ---
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 Problem Lump or mass in breast 611.72 Active Assessment Acute sinusitis J01.90 Active Problem Unspecified arthropathy, site unspecified 716.90 Active Problem Pain in joint, site unspecified 719.40 Active Problem Unspecified peripheral vertigo 386.10 Active Problem Dysfunction of Eustachian tube 381.81 Active Problem Restless legs syndrome [RLS] 333.94 Active Problem Unspecified sleep disturbance 780.50 Active Problem Screening mammogram for high-risk patient V76.11 Active Problem DTAP TEST V06.1 Active Medications Medication Code System Code Instructions Start Date End Date Status Dosage Lancets ND 0 July 25, 2012 SI times a day Hydrocodone-Acetaminophen [facility] [address]-99 10-325 MG Orally every 6 hrs July 19, 2014 take 1 tablet Atenolol [facility] 05273019435 100MG TAKE ONE TABLET BY MOUTH ONCE DAILY Augmentin [facility] [address]-09 875-125 MG Orally every 12 hrs Mar 24, 2015 Apr 03, 2015 1 tablet Protonix [facility] [address]-52 40 mg Apr 23, 2014 1 tablet by Oral route 1 time per day PredniSONE [facility] [address]-86 20 MG Orally Once a day Mar 24, 2015 Mar 29, 2015 1 tablet with food or milk Advair Diskus [facility] 10738503681 250/50 INHALE ONE DOSE BY MOUTH IN THE MORNING AND ONE IN THE EVENING APPROXIMATELY 12 HOURS APART Parafon Forte DSC [facility] [address]-73 500 MG Orally 2 times a day Dec 24, 2014 1 tablet Procedures Procedure Coding System Code Date Office Visit, Est Pt., Level 3 CPT-4 00208 Mar 24, 2015 Vital Signs Date/Time: Mar 24, 2015 Temperature 98.0 F Weight 160.7 lbs Height 61 in BMI 30.36 Index Blood Pressure Diastolic 78 mmHg Blood Pressure Systolic 120 mmHg Results No Known Results Summary Purpose eClinicalWorks Submission
--- OUTSIDE RECORDS SUMMARY | 2017-12-04 17:44 | XMS REPORT ---
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
--- OUTSIDE RECORDS SUMMARY | 2017-12-04 17:44 | XMS REPORT ---
Author CEDRIC Peñaloza Organization [employer] Address Unknown Phone Unavailable Care Team Providers Care Freezing Room Worker Name Role Phone CEDRIC LAWLER CP Unavailable [...] Instructions Start Date End Date Status Dosage Hydrocodone-Acetaminophen [facility] [address]-86 10-325 MG Orally every 6 hrs July 19, 2014 take 1 tablet Results No Known Results Summary Purpose eClinicalWorks Submission
[2017-12-04] MEDS ORDERED: HEParin (CATH LAB) 1,000 ML IV ONE (17:45)
[2017-12-04] MEDS ORDERED: NS IV 1000 ML 1,000 ML IV ONE (17:45)
[2017-12-04] MEDS ORDERED: NITRO DRIP 25000 MCG/D5W 250 ML IV ONE (17:45)
[2017-12-04] MEDS ORDERED: LIDOCAINE 1% INJ 20 ML 20 ML VIAL INJ ONE (17:45)
[2017-12-04] MEDS ORDERED: morphine INJ 10 MG/ML 1ML (SYR OR VIAL) IVP ONE (17:45)
--- OUTSIDE RECORDS SUMMARY | 2017-12-04 17:45 | XMS REPORT ---
Author Author SAADIA MCKNIGHT Organization [facility] Address [address] [place] [address] Care Team Providers Care Logistics System Engineer Name Role Phone SAADIA MCKNIGHT Unavailable PROBLEMS Type Condition ICD9-CM Code AMQ59-OS Code Onset Dates Condition Status SNOMED Code Problem Nicotine dependence, uncomplicated, unspecified nicotine product type F17.200 Active 32776879 Problem Restless leg syndrome G25.81 Active 58381292 Problem Mild persistent asthma without complication J45.30 Active 155579346 Problem RLS (restless legs syndrome) G25.81 Active 05321858 Problem Hypertension, benign I10 Active 01978762 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 895177996755270 Problem Abnormal CT lung screening R93.8 Active 785390523 Problem Essential hypertension I10 Active 77333327 Problem Diabetes mellitus type 2, controlled E11.9 Active 009202021 ALLERGIES Substance Reaction Event Type Date Status Latex rash Drug Allergy September, Active Lyrica nightmares Drug Allergy September, Active Codeine Phosphate nausea and vomiting Drug Allergy September, Active SOCIAL HISTORY Never Assessed PLAN OF CARE Activity Details Follow Up prn Reason: VITAL SIGNS Height 61 in 2016-09-10 Weight 159.2 lbs 2016-09-10 Temperature 98.0 degrees Fahrenheit 2016-09-10 Heart Rate 78 bpm 2016-09-10 Respiratory Rate 20 2016-09-10 BMI 30.08 kg/m2 2016-09-10 Blood pressure systolic 134 mmHg 2016-09-10 Blood pressure diastolic 84 mmHg 2016-09-10 MEDICATIONS Medication Instructions Dosage Frequency Start Date End Date Duration Status PredniSONE 20 MG Orally Once a day 2 tablet 24h September, September, 5 days Active Albuterol Sulfate HFA 108 (90 Base) MCG/ACT Inhalation every 4 hrs 2 puffs as needed 4h September, Active Glucometer 1 test blood sugar Nov, Active Requip XL 4 MG Orally Once a day 1 tablet 24h September, Active Atenolol 100MG Orally Once a day 1 tablet 24h 90 days Active Hydrocodone-Acetaminophen 10-325 MG Orally every 6 hrs-MUST HAVE APPT FOR FURTHER REFILLS take 1 tablet Aug, 28 days Active Advair Diskus 250/50 INHALE ONE DOSE BY MOUTH IN THE MORNING AND ONE IN THE EVENING APPROXIMATELY 12 HOURS APART 30 Active Chlorpheniramine Maleate 8 mg 1 capsule by Oral route 2 times per day PRN Jan, Active Advair Diskus 250-50 mcg/dose INHALE ONE DOSE BY MOUTH IN THE MORNING AND ONE IN THE EVENING APPROXIMATELY 12 HOURS APART 30 Active Augmentin 875-125 MG Orally every 12 hrs 1 tablet 12h Aug, September, 10 day(s) Active RESULTS No Results PROCEDURES [...]
--- OUTSIDE RECORDS SUMMARY | 2017-12-04 17:45 | XMS REPORT ---
Author Author CEDRIC LAWLER Organization [facility] Address [address] [place] [address] Care Team Providers Care Enterer Name Role Phone CEDRIC LAWLER Unavailable PROBLEMS Type Condition ICD9-CM Code [id number] Code Onset Dates Condition Status SNOMED Code Problem Nicotine dependence, uncomplicated, unspecified nicotine product type F17.200 Active 535[address]30 Problem [address] lung screening R93.8 Active 881886008 Problem Mild persistent asthma without complication J45.30 Active 974854840 Problem Restless leg syndrome G25.81 Active 04892236 Problem Osteoarthritis of spine with radiculopathy, cervical region M47.22 Active 419685240 Problem RLS (restless legs syndrome) G25.81 Active 99160796 Problem Diabetes mellitus type 2, controlled E11.9 Active 062534132 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 080587325195801 Problem Hypertension, benign I10 Active 76301314 Problem Essential hypertension I10 Active 16366255 ALLERGIES No Information ENCOUNTERS Encounter Location Date Diagnosis [facility] [id number] [place] [address] 40821- 0729 September, Osteoarthritis of spine with radiculopathy, cervical region M47.22 ; Coughing R05 ; Chronic pruritus L29.9 and Breast cancer screening Z12.31 [facility] [id number] [place] [address] 74222- 7060 September, Diabetes mellitus type 2, controlled E11.9 [facility] [id number] [place] [address] 34817 -0844 Jul, Chronic cough R05 [facility] [id number] [place] [address] 64725- 5419 Jul, [facility] [address] 77069- 6974 Jul, Diabetes mellitus type 2, controlled E11.9 [facility] [address] [address] 0484 Jul, [facility] [id number] [place] [address] 361526- 7976 Jul, [facility] [id number] [place] [address] 79526- 6286 Jun, [facility] [id number] [place] [address] 008195- 5276 Jun, Diabetes mellitus type 2, controlled E11.9 [facility] [id number] [place] [address] 342668- 0228 Jun, [facility] [id number] [place] [address] 76281- 0210 May, [facility] [id number] [place] [address] 49072- 1967 May, Diabetes mellitus type 2, controlled E11.9 [facility] [address], [place] [address]- 8392 Apr, [facility] [id number] [place] [address] 46948- 5481 Apr, Pneumonia of right upper lobe due to infectious organism J18.1 [facility] [address], [place] [address] 6069 Mar, [facility] [address], [place] [address]- 9119 Mar, [facility] [id number] [place] [address] 12067- 3411 08 Mar, 2017 [facility] [id number] [place] [address] 41952- 4972 03 Mar, 2017 Coughing R05 and SOB (shortness of breath) R06.02 [facility] [id number] [place] [address] 42617- 4542 Mar, Diabetes mellitus type 2, controlled E11.9 ; Coughing R05 and SOB (shortness of breath) R06.02 [facility] [id number] [place] [address] 60671- 3537 Feb, [facility] [id number] [place] [address] 78886- 2756 Feb, [facility] [address] 91413- 4202 Jan, Hypertension, benign I10 and RLS (restless legs syndrome) G25.81 [facility] [address] 14581- 3921 Jan, [facility] [id number] [place] [address] 47999- 8767 Dec, Pain in unspecified joint M25.50 and Mild persistent asthma without complication J45.30 [facility] [id number] [place] [address] 79353- 9368 Dec, [facility] [id number] [place] [address] 97907- [address] Dec, [address] lung screening R93.8 [facility] [id number] [place] [address] 13114- 8572 Dec, [facility] [id number] [place] [address] 18568- 7489 Nov, Screening for breast cancer Z12.31 [facility] [id number] [place] [address] 66686- 5276 Nov, [facility] [address] 68245- 4573 Nov, Essential hypertension I10 [facility] [id number] [place] [address] 42509- 9296 Nov, Essential hypertension I10 [facility] [address] 99628- 9329 Oct, Acute non-recurrent maxillary sinusitis J01.00 [facility] [address], [place] [address]- 3128 Oct, [facility] [address], [place] [address]- 5561 September, Acute non-recurrent maxillary sinusitis J01.00 [facility] [address], [place] [address] September, Low back pain M54.5 [facility] [id number] [place] [address] 43985- 2471 September, [facility] [id number] [place] [address] 85233- 8528 Aug, Acute non-recurrent maxillary sinusitis J01.00 [facility] [address] [address] Aug, Dental examination Z01.20 [facility] [address], [place] [address]- 0402 Aug, [facility] [id number] [place] [address] 08025- 4696 Aug, [facility] [address], [place] [address]- 5839 Aug, [facility] [address] [place] [address] 31591- 4584 Aug, Acute sinusitis J01.90 [facility] [address], [place] [address]- 6968 Jul, [facility] [id number] [address]- 6344 Jul, [facility] [address], [place] [address]- 5253 Jul, [facility] [address] [place] [address] 90134- 8873 Jul, [facility] [id number] [place] [address] 05953- 4693 Jul, Frequent urination R35.0 and Acute cystitis with hematuria N30.01 [facility] [id number] [place] [address] 90637- 0913 Jul, [facility] [address] 59653- 2138 Jun, [facility] [id number] [place] [address] 97373- 8915 Jun, Acute sinusitis J01.90 [facility] [id number] [place] [address] 78234- 7721 Jun, Diabetes mellitus type 2, controlled E11.9 ; Cough R05 ; Acute non-recurrent maxillary sinusitis J01.00 and detention (current) use of opiate analgesic Z79.891 [facility] [id number] [place] [address] 73292- 0870 May, [facility] [id number] [place] [address] 09627- 0723 May, [facility] [id number] [place] [address] 22772- 9515 May, [facility] [id number] [place] [address] 80960- 8019 Apr, [facility] [id number] [place] [address] 47725- 6525 Apr, [facility] [id number] [place] [address] 58027- 7944 Apr, [facility] [address] [place] [address] 61390 -1645 Apr, Acute non-recurrent maxillary sinusitis J01.00 [facility] [id number] [place] [address] 30369- 9148 Apr, [facility] [address] [place] [address] 63885- 2654 Feb, [facility] [id number] [place] [address] 00090- 2051 Feb, [facility] [id number] [place] [address] 10912- 0114 Feb, [facility] [id number] [place] [address] 81503- 6769 Feb, [facility] [id number] [place] [address] 44022- 2810 Feb, [facility] [id number] [place] [address] 41310- 4982 Feb, [facility] [id number] [place] [address] 14918- 7408 Jan, RLS (restless legs syndrome) G25.81 ; Osteoarthritis of spine with radiculopathy, cervical region M47.22 ; Lumbar neuritis M54.16 and Left sciatic nerve pain M54.32 [facility] [id number] [place] [address] 20776- 7568 Jan, [facility] [id number] [place] [address] 53548- 0608 Dec, [facility] [id number] [place] [address] 73620- 2453 Nov, [facility] [id number] [place] [address] 09073- 8385 Nov, [facility] [id number] [place] [address] 26527- 9042 Nov, [facility] [id number] [place] [address] 36003- 4098 Nov, Restless leg syndrome G25.81 and Controlled type 2 diabetes mellitus without complication, without long-term current use of insulin E11.9 [facility] [address], [place] [address]- 6493 Nov, [facility] [id number] [place] [address] 77842- 1093 Oct, [facility] [id number] [place] [address] 50940- 2802 Oct, [facility] [id number] [place] [address] 99544- 4994 Oct, [facility] [id number] [place] [address] 07843- 6445 Oct, 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 lung screening R93.8 [facility] [id number] [place] [address] 90804- 5985 Oct, [facility] [id number] [place] [address] 45798- 0946 September, [facility] [id number] [place] [address] 13797- 5670 September, Physical exam, annual Z00.00 ; Nicotine dependence, uncomplicated, unspecified nicotine product type F17.200 ; Screening breast examination Z12.39 ; Restless leg syndrome G25.81 and Mild persistent asthma without complication J45.30 [facility] [address], [place] [address]- 9814 September, [facility] [address] [place] [address] 38540- 3697 September, [facility] [address], [place] [address]- 3174 Aug, [facility] [id number] [place] [address] 19353- 5999 Jul, Dental examination Z01.20 and Dental caries K02.9 [facility] [address], [place] [address]- 2306 Jul, [facility] [id number] [address]- 7522 Jul, Diabetes mellitus type 2, controlled E11.9 and Pain in unspecified joint M25.50 [facility] [id number] [place] [address] 86447- 8416 Jul, [facility] [id number] [place] [address] 26298- 3270 Jun, Dental examination Z01.20 [facility] [id number] [place] [address] 73162- 4899 May, [facility] [id number] [place] [address] 95436- 8117 May, [facility] [id number] [place] [address] 31270- 0354 Apr, [facility] [id number] [place] [address] 05158- 0448 Mar, [facility] [id number] [place] [address] 42986- 4792 Mar, Acute sinusitis J01.90 [facility] [id number] [place] [address] 56696- 1027 Feb, [facility] [id number] [place] [address] 89825- 9791 Jan, Flu vaccine need V04.81 [facility] [id number] [place] [address] 34128- 5493 Jan, [facility] [id number] [place] [address] 13238- 2086 Jan, Pain in joint, site unspecified 719.40 [facility] [id number] [place] [address] 37440- 1291 Dec, Pain in joint, site unspecified 719.40 [facility] [id number] [place] [address] 39872- 9681 Dec, [facility] [address], [place] [address]- 3805 Dec, [facility] [id number] [place] [address] 24206- 8465 Dec, Sciatica 724.3 ; Restless legs syndrome [RLS] 333.94 and Encounter for smoking cessation counseling V65.42 [facility] [id number] [place] [address] 55561- 7645 Dec, Nicotine dependence 305.1 [facility] [id number] [place] [address] 135405- 8837 Nov, [facility] [id number] [place] [address] 36156- 4154 Oct, [facility] [id number] [place] [address] 95877- 7335 Oct, [facility] [address] [place] [address] 49314- 5626 September, [facility] [address], [place] [address]- 6985 Aug, [facility] [address] [place] [address] 56947- 7526 Aug, [facility] [address], [place] [address]- 9841 Jul, [facility] [address], [place] [address]- 3566 Jul, [facility] [address], [place] [address]- 6469 Jul, [facility] [address], [place] [address]- 4496 Jun, [facility] [address], [place] [address]- 1616 Jun, [facility] [id number] [place] [address] [place] [address]- 8163 Jun, [facility] [address] [id number] [place] [address]- 6209 Jun, [facility] [place] [facility] [address] [id number] [place] [address]- 4651 May, [facility] [place] [facility] [address] [id number] [place] [address]- 4779 May, [facility] [place] [facility] [address] [id number] [place] [address]- 4365 May, [facility] [place] [facility] [address] [id number] [place] [address]- 1515 May, [facility] [place] [facility] [address] [id number] [place] [address]- 0423 May, [facility] [address] [id number] [place] [address]- 8984 May, [facility] [place] [facility] [address] [id number] [place] [address]- 4875 May, [facility] [place] [facility] [address] [id number] [place] [address]- 0261 Apr, [facility] [place] [facility] [address] [id number] [place] [address]- 8386 Apr, [facility] [place] [facility] [address] [id number] [place] [address]- 2938 Apr, [facility] [place] [facility] [address] [id number] [place] [address]- 1433 Apr, [facility] [place] [facility] [address] [id number] [place] [address]- 8066 Apr, [facility] [place] [facility] [address] [id number] [place] [address]- 1056 Apr, [facility] [place] [facility] [address] [id number] [place] [address]- 5241 Apr, [facility] [place] [facility] [address] [id number] [place] [address]- 0222 Apr, [facility] [place] [facility] [address] [id number] [place] [address]- 0594 Apr, [facility] [place] [facility] [address] [id number] [place] [address]- 6582 Apr, [facility] [place] [facility] [address] [id number] [place] [address]- 6518 Mar, [facility] [place] [facility] [address] [id number] [place] [address]- 0281 Mar, [facility] [place] [facility] [address] [id number] [place] [address]- 7703 Mar, [facility] [place] [facility] [address] [id number] [place] [address]- 4551 Mar, [facility] [place] [facility] [address] [id number] [place] [address]- 0163 Mar, [facility] [place] [facility] [address] [id number] [place] [address]- 6655 Mar, [facility] [place] [facility] [address] [id number] [place] [address]- 9161 Feb, [facility] [place] [facility] [address] [id number] [place] [address]- 9159 15 Feb, 2014 [facility] [place] [facility] [address] [id number] [place] [address]- 2967 Feb, [facility] [place] [facility] [address] [id number] [place] [address]- 4508 Feb, [facility] [place] [facility] [address] [id number] [place] [address]- 5631 Feb, [facility] [place] [facility] [address] [id number] [place] [address]- 1955 Feb, [facility] [place] [facility] [address] [id number] [place] [address]- 3534 Jan, [facility] [place] [facility] [address] [id number] [place] [address]- 9272 Jan, [facility] [place] [facility] [address] [id number] [place] [address]- 2523 Jan, [facility] [place] [facility] [address] [id number] [place] [address]- 1008 Jan, [facility] [place] [facility] [address] [id number] [place] [address]- 5976 Dec, [facility] [place] [facility] [address] [id number] [place] [address]- 6118 Dec, [facility] [place] [facility] [address] [id number] [place] [address]- 4263 Dec, [facility] [place] [facility] [address] [id number] [place] [address]- 4461 Dec, [facility] [place] [facility] [address] [id number] [place] [address]- 6541 Dec, [facility] [place] [facility] [address] [id number] [place] [address]- 7183 Nov, [facility] [place] [facility] [address] [id number] [place] [address]- 2636 Nov, [facility] [place] [facility] [address] [id number] [place] [address]- 7902 Nov, [facility] [place] [facility] [address] [id number] [place] [address]- 2258 Nov, [facility] [place] [facility] [address] [id number] [place] [address]- 3176 Nov, [facility] [place] [facility] [address] [id number] [place] [address]- 0745 Nov, [facility] [place] [facility] [address] [id number] [place] [address]- 2192 16 Oct, 2013 [facility] [place] [facility] [address] [id number] [place] [address]- 2359 16 Oct, 2013 [facility] [address] [id number] [place] [address]- 6827 September, [facility] [place] [facility] [address] [id number] [place] [address]- 5738 September, [facility] [address] [id number] [place] [address]- 9631 September, [facility] [place] [facility] [address] [id number] [place] [address]- 5832 September, [facility] [address] [id number] [place] [address]- 5279 Aug, [facility] [place] [facility] [address] [id number] [place] [address]- 6329 Aug, [facility] [place] [facility] [address] [id number] [place] [address]- 9229 Jul, [facility] [place] [facility] [address] [id number] [place] [address]- 5778 17 Jul, 2013 [facility] [place] [facility] [address] [id number] [place] [address]- 9070 Jul, [facility] [address] [id number] [place] [address]- 1033 Jul, [facility] [place] [facility] [address] [id number] [place] [address]- 1074 Jun, [facility] [place] [facility] [address] [id number] [place] [address]- 1233 Jun, [facility] [place] [facility] [address] [id number] [place] [address]- 4210 Jun, [facility] [place] [facility] [address] [id number] [place] [address]- 8186 Jun, [facility] [place] [facility] [address] [id number] [place] [address]- 2041 May, [facility] [place] [facility] [address] [id number] [place] [address] May, [facility] [place] [facility] [address] [id number] [place] [address] May, [facility] [place] [facility] [address] [id number] [place] [address] May, [facility] [place] [facility] [address] [id number] [place] [address] Apr, [facility] [place] [facility] [address] [id number] [place] [address] Apr, [facility] [place] [facility] [address] [id number] [place] [address] Apr, [facility] [place] [facility] [address] [id number] [place] [address] Mar, [facility] [place] [facility] [address] [id number], [place] [address] Mar, [facility] [place] [facility] [address] [id number] [place] [address] Mar, [facility] [place] [facility] [address] [id number], [place] [address] Mar, [facility] [place] [facility] [address] [id number], [place] [address] Feb, [facility] [place] [facility] [address] [id number], [place] [address] Feb, [facility] [place] [facility] [address] [id number] [place] [address] Feb, [facility] [place] [facility] [address] [id number], [place] [address] Feb, [facility] [place] [facility] [address] [id number], [place] [address] 17 Feb, 2013 [facility] [place] [facility] [address] [id number] [place] [address] 17 Feb, 2013 [facility] [address] [id number] [place] [address] Feb, [facility] [place] [facility] [address] [id number] [place] [address] Feb, [facility] [place] [facility] [address] [id number] [place] [address] Jan, [facility] [place] [facility] [address] [id number] [place] [address] Jan, [facility] [place] [facility] [address] [id number] [place] [address] Jan, [facility] [place] [facility] [address] [id number] [place] [address] Dec, [facility] [place] [facility] [address] [id number] [place] [address] Dec, [facility] [place] [facility] [address] [id number] [place] [address] Nov, [facility] [place] [facility] [address] [id number] [place] [address] Nov, [facility] [place] [facility] [address] [id number] [place] [address] Nov, [facility] [place] [facility] [address] [id number] [place] [address] Nov, [facility] [place] [facility] [address] [id number] [place] [address] Oct, [facility] [place] [facility] [address] [id number] [place] [address] Oct, [facility] [place] [facility] [address] [id number] [place] [address] Oct, [facility] [place] [facility] [address] [id number] [place] [address] September, [facility] [place] [facility] [address] [id number] [place] [address] September, [facility] [address] [id number] [place] [address] September, [facility] [facility] [address] [id number] [place] [address] September, [facility] [address] [id number] [place] [address] Aug, [facility] [address] [id number] [place] [address] Aug, [facility] [address] [id number] [place] [address] Jul, [facility] [address] [id number] [place] [address] Jul, [facility] [address] [id number] [place] [address] Jul, [facility] [address] [id number] [place] [address] Jul, [facility] [address] [id number] [place] [address] Jul, [facility] [address] [id number] [place] [address] Jun, [facility] [address] [id number] [place] [address] Jun, [facility] [place] [facility] [address] [id number] [place] [address] Jun, [facility] [place] [facility] [address] [id number] [place] [address] May, [facility] [place] [facility] [address] [id number] [place] [address] May, [facility] [address] [id number] [address] May, [facility] [place] [facility] [address] [id number] [place] [address] Apr, [facility] [place] [facility] [address] [id number] [place] [address] Apr, [facility] [place] [facility] [address] [id number] [place] [address] Apr, [facility] [place] [facility] [address] [id number] [place] [address] Apr, [facility] [place] [facility] [address] [id number] [place] [address] Apr, [facility] [place] [facility] [address] [id number] [place] [address] Apr, [facility] [place] [facility] [address] [id number] [place] [address] Apr, [facility] [place] [facility] [address] [id number] [place] [address]99 Apr, [facility] [place] [facility] [address] [id number] [place] [address] Mar, [facility] [place] [facility] [address] [id number] [place] [address] Mar, [facility] [place] [facility] [address] [id number] [place] [address] 39[address] Mar, [facility] [place] [facility] [address] [id number] [place] [address] Mar, [facility] [place] [facility] [address] [id number] [place] [address] Mar, [facility] [place] [facility] [address] [id number] [place] [address] Mar, [facility] [place] [facility] [address] [id number] [place] [address]073 Mar, [facility] [place] [facility] [address] [id number] [place] [address]179 Mar, [facility] [place] [facility] [address] [id number] [place] [address] Mar, [facility] [place] [facility] [address] [id number] [place] [address] Mar, [facility] [place] [facility] [address] [id number] [place] [address] Feb, [facility] [place] [facility] [address] [id number] [place] [address] Feb, [facility] [place] [facility] [address] [id number] [place] [address] Feb, [facility] [place] [facility] [address] [id number] [place] [address] Jan, [facility] [place] [facility] [address] [id number] [place] [address] Jan, [facility] [place] [facility] [address] [id number] [place] [address] 8614 Jan, [facility] [place] [facility] [address] [id number] [place] [address] Dec, [facility] [place] [facility] [address] [id number] [place] [address] 15 Dec, 2011 [facility] [place] [facility] [address] [id number] [place] [address] Dec, [facility] [place] [facility] [address] [id number] [place] [address] Dec, [facility] [place] [facility] [address] [id number] [place] [address] Dec, [facility] [place] [facility] [address] [id number] [place] [address] Nov, [facility] [place] [facility] [address] [id number] [place] [address] Nov, [facility] [address] [id number] [place] [address] Oct, [facility] [place] [facility] [address] [id number] [place] [address]60 September, [facility] [place] [facility] [address] [id number] [place] [address]- 9[address] September, [facility] [place] [facility] [address] [id number] [place] [address]- [address] September, [facility] [place] [facility] [address] [id number] [place] [address]- [address]876 September, [facility] [place] [facility] [address] [id number] [place] [address]- 6098 September, [facility] [place] [facility] [address] [id number] [place] [address] Aug, [facility] [place] [facility] [address] [id number] [place] [address]- 2316 16 Jul, 2011 [facility] [place] [facility] [address] [id number] [place] [address]- [address] 15 Jul, 2011 [facility] [place] [facility] [address] [id number] [place] [address] 3445 14 Jul, 2011 [facility] [place] [facility] [address] [id number] [place] [address]- 9[address] 14 Jul, 2011 [facility] [place] [facility] [address] [id number], [place] [address] Jul, [facility] [place] [facility] [address] [id number] [place] [address]- 9695 Jul, [facility] [place] [facility] [address] [id number] [place] [address]- [address] 08 Jul, 2011 [facility] [place] [facility] [address] [id number] [place] [address]- 1048 05 Jul, 2011 [facility] [place] [facility] [address] [id number] [place] [address] 27 Jun, 2011 [facility] [place] [facility] [address] [id number] [place] [address]- 8900 16 Jun, 2011 [facility] [place] [facility] [address] [id number] [place] [address]- 9514 10 Jun, 2011 [facility] [place] [facility] [address] [id number] [place] [address]- 110[address] May, [facility] [place] [facility] [address] [id number] [place] [address]- 54[address] Apr, [facility] [place] [facility] [address] [id number] [place] [address]- 2882 Apr, [facility] [place] [facility] [address] [id number] [place] [address]- 3069 Mar, [facility] [place] [facility] [address] [id number] [place] [address]- 9447 Mar, [facility] [place] [facility] [address] [id number] [place] [address]- 0324 Mar, [facility] [place] [facility] [address] [id number] [place] [address]- 3811 Feb, [facility] [place] [facility] [address] [id number] [place] [address]- 6435 Feb, [facility] [place] [facility] [address] [id number] [place] [address]- 3686 Feb, [facility] [place] [facility] [address] [id number] [place] [address]- 0327 Apr, [facility] [place] [facility] [address] [id number] [place] [address]- 6977 Apr, [facility] [place] [facility] [address] [id number] [place] [address]- 7367 Mar, [facility] [place] [facility] [address] [id number] [place] [address]- 0637 Mar, [facility] [place] [facility] [address] [id number] [place] [address]- 3890 Mar, [facility] [place] [facility] [address] [id number] [place] [address]- 8947 Mar, [facility] [address] [id number] [place] [address]- 3686 Mar, [facility] [place] [facility] [address] [id number] [place] [address] Feb, [facility] [address] [id number] [place] [address]- 5[address] September, [facility] [address] [id number] [place] [address]- 1579 Aug, [facility] [address] [id number] [place] [address]- 3629 Apr, [facility] [address] [id number], [place] [address]- [address] 15 Apr, 2009 [facility] [address] [id number] [place] [address]- 5426 Mar, [facility] [place] [facility] [address] [id number], [place] [address]- 9503 Mar, [facility] [place] [facility] [address] [id number] [place] [address]- 0856 Mar, [facility] [place] [facility] [address] [id number], [place] [address]- 5676 Feb, [facility] [place] [facility] [address] [id number], [place] [address]- 1236 Jan, [facility] [place] [facility] [address] [id number], [place] [address]- 1776 Dec, [facility] [place] [facility] [address] [id number], [place] [address]- [address] 15 Nov, 2008 [facility] [place] [facility] [address] [id number], [place] [address]- [address] Oct, [facility] [address] [facility] [id number], [place] [address] Apr, [facility] [address] [facility] [id number], [place] [address]- 2546 Apr, [facility] [address] [facility] [id number], [place] [address]- [address]46 Apr, [facility] [address] [facility] [id number], [place] [address]- [address]46 Feb, IMMUNIZATIONS No Known Immunizations SOCIAL HISTORY Never Assessed REASON FOR VISIT Continued URI PLAN OF CARE VITAL SIGNS MEDICATIONS Medication Instructions Dosage Frequency Start Date End Date Duration Status Levaquin 500 mg Orally Once a day 1 tablet 24h Mar, Mar, 10 days Active RESULTS No Results PROCEDURES No [...]
--- OUTSIDE RECORDS SUMMARY | 2017-12-04 17:45 | XMS REPORT ---
Author Author CEDRIC LAWLER Organization [facility] Address [address] [place] [address] Care Team Providers Care Manager Pharmaceutical Name Role Phone CEDRIC LAWLER Unavailable PROBLEMS Type Condition ICD9-CM Code WVT27-IE Code Onset Dates Condition Status SNOMED Code Problem Nicotine dependence, uncomplicated, unspecified nicotine product type F17.200 Active 31541105 Problem Abnormal CT lung screening R93.8 Active 513057555 Problem Mild persistent asthma without complication J45.30 Active 641199285 Problem Restless leg syndrome G25.81 Active 27540694 Problem Osteoarthritis of spine with radiculopathy, cervical region M47.22 Active 455734609 Problem RLS (restless legs syndrome) G25.81 Active 77643204 Problem Diabetes mellitus type 2, controlled E11.9 Active 575741304 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 [id number] Problem Hypertension, benign I10 Active 90885091 Problem Essential hypertension I10 Active 68690140 ALLERGIES No Information ENCOUNTERS Encounter Location Date Diagnosis [facility] [address] [address] September, Osteoarthritis of spine with radiculopathy, cervical region M47.22 ; Coughing R05 ; Chronic pruritus L29.9 and Breast cancer screening Z12.31 [facility] [id number] [place] [address] 44285- 1062 September, Diabetes mellitus type 2, controlled E11.9 [facility] [id number] [place] [address] 54196 -7487 Jul, Chronic cough R05 [facility] [id number] [place] [address] 23511- 4603 Jul, [facility] [address] 01803- 2898 Jul, Diabetes mellitus type 2, controlled E11.9 [facility] [address] [address] 3[address] Jul, [facility] [id number] [place] [address] 933640- 7140 Jul, [facility] [id number] [place] [address] 61912- 4123 Jun, [facility] [id number] [place] [address] 173770- 8356 Jun, Diabetes mellitus type 2, controlled E11.9 [facility] [id number] [place] [address] 547654- 4393 Jun, [facility] [id number] [place] [address] 89206- 9490 May, [facility] [id number] [place] [address] 78139- 5571 May, Diabetes mellitus type 2, controlled E11.9 [facility] [address], [place] [address]- 7337 Apr, [facility] [id number] [place] [address] 96213- 5264 Apr, Pneumonia of right upper lobe due to infectious organism J18.1 [facility] [address] [address] 3268 Mar, [facility] [address], [place] [address]- 5449 Mar, [facility] [id number] [place] [address] 36324- 0285 08 Mar, 2017 [facility] [id number] [place] [address] 85079- 8372 03 Mar, 2017 Coughing R05 and SOB (shortness of breath) R06.02 [facility] [id number] [place] [address] 08745- 2593 Mar, Diabetes mellitus type 2, controlled E11.9 ; Coughing R05 and SOB (shortness of breath) R06.02 [facility] [id number] [place] [address] 00665- 5322 Feb, [facility] [id number] [place] [address] 27271- 4480 Feb, [facility] [address] 99433- 7920 Jan, Hypertension, benign I10 and RLS (restless legs syndrome) G25.81 [facility] [address] 96551- 0716 Jan, [facility] [id number] [place] [address] 91529- 9087 Dec, Pain in unspecified joint M25.50 and Mild persistent asthma without complication J45.30 [facility] [id number] [place] [address] 80457- 6926 Dec, [facility] [id number] [place] [address] 44158- [address] Dec, [address] lung screening R93.8 [facility] [id number] [place] [address] 16733- 2111 Dec, [facility] [id number] [place] [address] 76084- 4119 Nov, Screening for breast cancer Z12.31 [facility] [id number] [place] [address] 27607- 1699 Nov, [facility] [address] 06603- 5938 Nov, Essential hypertension I10 [facility] [id number] [place] [address] 48973- 2194 Nov, Essential hypertension I10 [facility] [address] 93799- 9035 Oct, Acute non-recurrent maxillary sinusitis J01.00 [facility] [address], [place] [address]- 7724 Oct, [facility] [address], [place] [address]- 8849 September, Acute non-recurrent maxillary sinusitis J01.00 [facility] [address], [place] [address] September, Low back pain M54.5 [facility] [id number] [place] [address] 87145- 4657 September, [facility] [id number] [place] [address] 93075- 8413 Aug, Acute non-recurrent maxillary sinusitis J01.00 [facility] [address] [id number] Aug, Dental examination Z01.20 [facility] [address], [place] [address]- 5657 Aug, [facility] [id number] [place] [address] 81892- 0181 Aug, [facility] [address], [place] [address]- 0934 Aug, [facility] [id number] [place] [address] 53340- 1217 Aug, Acute sinusitis J01.90 [facility] [address], [place] [address]- 8301 Jul, [facility] [id number] [address]- 0026 Jul, [facility] [address], [place] [address]- 3163 Jul, [facility] [id number] [place] [address] 97195- 9311 Jul, [facility] [id number] [place] [address] 22326- 4962 Jul, Frequent urination R35.0 and Acute cystitis with hematuria N30.01 [facility] [id number] [place] [address] 63982- 8556 Jul, [facility] [address] 40169- 9552 Jun, [facility] [id number] [place] [address] 35158- 5817 Jun, Acute sinusitis J01.90 [facility] [id number] [place] [address] 61743- 2064 Jun, Diabetes mellitus type 2, controlled E11.9 ; Cough R05 ; Acute non-recurrent maxillary sinusitis J01.00 and shelter (current) use of opiate analgesic Z79.891 [facility] [id number] [place] [address] 27038- 1280 May, [facility] [id number] [place] [address] 22750- 4059 May, [facility] [id number] [place] [address] 50141- 2918 May, [facility] [id number] [place] [address] 45852- 3355 Apr, [facility] [id number] [place] [address] 93692- 3185 Apr, [facility] [id number] [place] [address] 43599- 9794 Apr, [facility] [id number] [place] [address] 98180 -9031 Apr, Acute non-recurrent maxillary sinusitis J01.00 [facility] [id number] [place] [address] 54093- 7943 Apr, [facility] [id number] [place] [address] 07669- 1244 Feb, [facility] [id number] [place] [address] 47027- 6919 Feb, [facility] [id number] [place] [address] 27335- 7537 Feb, [facility] [id number] [place] [address] 16810- 4742 Feb, [facility] [id number] [place] [address] 20068- 0079 Feb, [facility] [id number] [place] [address] 52835- 5262 Feb, [facility] [id number] [place] [address] 96183- 4355 Jan, RLS (restless legs syndrome) G25.81 ; Osteoarthritis of spine with radiculopathy, cervical region M47.22 ; Lumbar neuritis M54.16 and Left sciatic nerve pain M54.32 [facility] [id number] [place] [address] 95546- 3460 Jan, [facility] [id number] [place] [address] 18740- 5807 Dec, [facility] [id number] [place] [address] 78503- 2293 Nov, [facility] [id number] [place] [address] 12176- 3663 Nov, [facility] [id number] [place] [address] 68991- 8157 Nov, [facility] [id number] [place] [address] 74895- 1367 Nov, Restless leg syndrome G25.81 and Controlled type 2 diabetes mellitus without complication, without long-term current use of insulin E11.9 [facility] [address], [place] [address]- 3166 Nov, [facility] [id number] [place] [address] 26465- 9442 Oct, [facility] [id number] [place] [address] 19889- 1703 Oct, [facility] [id number] [place] [address] 15970- 9513 Oct, [facility] [id number] [place] [address] 26997- 4054 Oct, 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 lung screening R93.8 [facility] [id number] [place] [address] 21728- 1936 Oct, [facility] [id number] [place] [address] 33910- 7663 September, [facility] [id number] [place] [address] 73379- 1289 September, Physical exam, annual Z00.00 ; Nicotine dependence, uncomplicated, unspecified nicotine product type F17.200 ; Screening breast examination Z12.39 ; Restless leg syndrome G25.81 and Mild persistent asthma without complication J45.30 [facility] [address], [place] [address]- 2903 September, [facility] [id number] [place] [address] 84393- 7385 September, [facility] [address], [place] [address]- 3004 Aug, [facility] [id number] [place] [address] 21484- 2477 Jul, Dental examination Z01.20 and Dental caries K02.9 [facility] [address], [place] [address]- 7022 Jul, [facility] [id number] [address]- 3604 Jul, Diabetes mellitus type 2, controlled E11.9 and Pain in unspecified joint M25.50 [facility] [id number] [place] [address] 08769- 7859 Jul, [facility] [id number] [place] [address] 51702- 4418 Jun, Dental examination Z01.20 [facility] [id number] [place] [address] 44265- 0352 May, [facility] [id number] [place] [address] 68246- 7410 May, [facility] [id number] [place] [address] 66639- 2053 Apr, [facility] [id number] [place] [address] 07119- 9154 Mar, [facility] [id number] [place] [address] 52595- 5548 Mar, Acute sinusitis J01.90 [facility] [id number] [place] [address] 57952- 7839 Feb, [facility] [id number] [place] [address] 31375- 9443 Jan, Flu vaccine need V04.81 [facility] [id number] [place] [address] 82277- 0736 Jan, [facility] [id number] [place] [address] 80679- 7316 Jan, Pain in joint, site unspecified 719.40 [facility] [id number] [place] [address] 43267- 0410 Dec, Pain in joint, site unspecified 719.40 [facility] [id number] [place] [address] 49076- 8758 Dec, [facility] [address], [place] [address]- 2499 Dec, [facility] [id number] [place] [address] 74333- 0197 Dec, Sciatica 724.3 ; Restless legs syndrome [RLS] 333.94 and Encounter for smoking cessation counseling V65.42 [facility] [id number] [place] [address] 15543- 1259 Dec, Nicotine dependence 305.1 [facility] [id number] [place] [address] 866677- 3501 Nov, [facility] [id number] [place] [address] 49099- 0311 Oct, [facility] [id number] [place] [address] 56154- 4194 Oct, [facility] [id number] [place] [address] 23222- 7325 September, [facility] [address], [place] [address]- 4830 Aug, [facility] [id number] [place] [address] 56862- 5912 Aug, [facility] [address], [place] [address]- 7750 Jul, [facility] [address], [place] [address]- 0627 Jul, [facility] [address], [place] [address]- 3228 Jul, [facility] [address], [place] [address]- 9646 Jun, [facility] [address], [place] [address]- 8476 Jun, [facility] [id number] [place] [address] [place] [address]- 1170 Jun, [facility] [address] [id number] [place] [address]- 5418 Jun, [facility] [place] [facility] [address] [id number] [place] [address]- 5136 May, [facility] [place] [facility] [address] [id number] [place] [address]- 7034 May, [facility] [place] [facility] [address] [id number] [place] [address]- 8791 May, [facility] [place] [facility] [address] [id number] [place] [address]- 3346 May, [facility] [place] [facility] [address] [id number] [place] [address]- 5561 May, [facility] [address] [id number] [place] [address]- 9518 May, [facility] [place] [facility] [address] [id number] [place] [address]- 4824 May, [facility] [place] [facility] [address] [id number] [place] [address]- 3040 Apr, [facility] [place] [facility] [address] [id number] [place] [address]- 8213 Apr, [facility] [place] [facility] [address] [id number] [place] [address]- 9445 Apr, [facility] [place] [facility] [address] [id number] [place] [address]- 4382 Apr, [facility] [place] [facility] [address] [id number] [place] [address]- 9030 Apr, [facility] [place] [facility] [address] [id number] [place] [address]- 7127 Apr, [facility] [place] [facility] [address] [id number] [place] [address]- 8437 Apr, [facility] [place] [facility] [address] [id number] [place] [address]- 5587 Apr, [facility] [place] [facility] [address] [id number] [place] [address]- 0811 Apr, [facility] [place] [facility] [address] [id number] [place] [address]- 8196 Apr, [facility] [place] [facility] [address] [id number] [place] [address]- 4379 Mar, [facility] [place] [facility] [address] [id number] [place] [address]- 4317 Mar, [facility] [place] [facility] [address] [id number] [place] [address]- 2436 Mar, [facility] [place] [facility] [address] [id number] [place] [address]- 1488 Mar, [facility] [place] [facility] [address] [id number] [place] [address]- 2011 Mar, [facility] [place] [facility] [address] [id number] [place] [address]- 4865 Mar, [facility] [place] [facility] [address] [id number] [place] [address]- 8932 Feb, [facility] [place] [facility] [address] [id number] [place] [address]- 4790 15 Feb, 2014 [facility] [place] [facility] [address] [id number] [place] [address]- 6067 Feb, [facility] [place] [facility] [address] [id number] [place] [address]- 0226 Feb, [facility] [place] [facility] [address] [id number] [place] [address]- 6794 Feb, [facility] [place] [facility] [address] [id number] [place] [address]- 0148 Feb, [facility] [place] [facility] [address] [id number] [place] [address]- 6493 Jan, [facility] [place] [facility] [address] [id number] [place] [address]- 1687 Jan, [facility] [place] [facility] [address] [id number] [place] [address]- 0999 Jan, [facility] [place] [facility] [address] [id number] [place] [address]- 7180 Jan, [facility] [place] [facility] [address] [id number] [place] [address]- 4421 Dec, [facility] [place] [facility] [address] [id number] [place] [address]- 7408 Dec, [facility] [place] [facility] [address] [id number] [place] [address]- 3619 Dec, [facility] [place] [facility] [address] [id number] [place] [address]- 5934 Dec, [facility] [place] [facility] [address] [id number] [place] [address]- 6738 Dec, [facility] [place] [facility] [address] [id number] [place] [address]- 8848 Nov, [facility] [place] [facility] [address] [id number] [place] [address]- 1669 Nov, [facility] [place] [facility] [address] [id number] [place] [address]- 2310 Nov, [facility] [place] [facility] [address] [id number] [place] [address]- 6484 Nov, [facility] [place] [facility] [address] [id number] [place] [address]- 8406 Nov, [facility] [place] [facility] [address] [id number] [place] [address]- 9166 Nov, [facility] [place] [facility] [address] [id number] [place] [address]- 2252 16 Oct, 2013 [facility] [place] [facility] [address] [id number] [place] [address]- 3776 16 Oct, 2013 [facility] [address] [id number] [place] [address]- 3154 September, [facility] [place] [facility] [address] [id number] [place] [address]- 1312 September, [facility] [address] [id number] [place] [address]- 8027 September, [facility] [place] [facility] [address] [id number] [place] [address]- 8386 September, [facility] [address] [id number] [place] [address]- 9623 Aug, [facility] [place] [facility] [address] [id number] [place] [address]- 3563 Aug, [facility] [place] [facility] [address] [id number] [place] [address]- 1890 Jul, [facility] [place] [facility] [address] [id number] [place] [address]- 4333 17 Jul, 2013 [facility] [place] [facility] [address] [id number] [place] [address]- 4686 Jul, [facility] [address] [id number] [place] [address]- 4113 Jul, [facility] [place] [facility] [address] [id number] [place] [address]- 9702 Jun, [facility] [place] [facility] [address] [id number] [place] [address]- 6765 Jun, [facility] [place] [facility] [address] [id number] [place] [address]- 9525 Jun, [facility] [place] [facility] [address] [id number] [place] [address]- 5016 Jun, [facility] [place] [facility] [address] [id number] [place] [address]- 8384 May, [facility] [place] [facility] [address] [id number] [place] [address]- 0581 May, [facility] [place] [facility] [address] [id number] [place] [address]- 1121 May, [facility] [place] [facility] [address] [id number] [place] [address]- 6594 May, [facility] [place] [facility] [address] [id number] [place] [address]- 1672 Apr, [facility] [place] [facility] [address] [id number] [place] [address] Apr, [facility] [place] [facility] [address] [id number] [place] [address] Apr, [facility] [place] [facility] [address] [id number] [place] [address] Mar, [facility] [place] [facility] [address] [id number], [place] [address] Mar, [facility] [place] [facility] [address] [id number] [place] [address] Mar, [facility] [place] [facility] [address] [id number], [place] [address] Mar, [facility] [place] [facility] [address] [id number], [place] [address] Feb, [facility] [place] [facility] [address] [id number], [place] [address] Feb, [facility] [place] [facility] [address] [id number] [place] [address] Feb, [facility] [place] [facility] [address] [id number], [place] [address] Feb, [facility] [place] [facility] [address] [id number], [place] [address] 17 Feb, 2013 [facility] [place] [facility] [address] [id number] [place] [address] 17 Feb, 2013 [facility] [address] [id number] [place] [address] Feb, [facility] [place] [facility] [address] [id number] [place] [address] Feb, [facility] [place] [facility] [address] [id number] [place] [address] Jan, [facility] [place] [facility] [address] [id number] [place] [address] Jan, [facility] [place] [facility] [address] [id number] [place] [address] Jan, [facility] [place] [facility] [address] [id number] [place] [address] Dec, [facility] [place] [facility] [address] [id number] [place] [address] Dec, [facility] [place] [facility] [address] [id number] [place] [address] Nov, [facility] [place] [facility] [address] [id number] [place] [address] Nov, [facility] [place] [facility] [address] [id number] [place] [address] Nov, [facility] [place] [facility] [address] [id number] [place] [address] Nov, [facility] [place] [facility] [address] [id number] [place] [address] Oct, [facility] [place] [facility] [address] [id number] [place] [address] Oct, [facility] [place] [facility] [address] [id number] [place] [address] Oct, [facility] [place] [facility] [address] [id number] [place] [address] September, [facility] [place] [facility] [address] [id number] [place] [address] September, [facility] [address] [id number] [place] [address] September, [facility] [address] [id number] [place] [address] September, [facility] [address] [id number] [place] [address] Aug, [facility] [address] [id number] [place] [address] Aug, [facility] [address] [id number] [place] [address] Jul, [facility] [address] [id number] [place] [address] Jul, [facility] [address] [id number] [place] [address] Jul, [facility] [address] [id number] [place] [address] Jul, [facility] [address] [id number] [place] [address] Jul, [facility] [address] [id number] [place] [address] Jun, [facility] [address] [id number] [place] [address] Jun, [facility] [place] [facility] [address] [id number] [place] [address] Jun, [facility] [place] [facility] [address] [id number] [place] [address] May, [facility] [place] [facility] [address] [id number] [place] May, [facility] [address] [id number], [place] [address] May, [facility] [place] [facility] [address] [id number] [place] [address] Apr, [facility] [place] [facility] [address] [id number] [place] [address] Apr, [facility] [place] [facility] [address] [id number] [place] [address] Apr, [facility] [place] [facility] [address] [id number] [place] [address] Apr, [facility] [place] [facility] [address] [id number] [place] [address] Apr, [facility] [place] [facility] [address] [id number] [place] [address] Apr, [facility] [place] [facility] [address] [id number] [place] [address] Apr, [facility] [place] [facility] [address] [id number] [place] [address] Apr, [facility] [place] [facility] [address] [id number] [place] [address] Mar, [facility] [place] [facility] [address] [id number] [place] [address] Mar, [facility] [place] [facility] [address] [id number] [place] [address] Mar, [facility] [place] [facility] [address] [id number] [place] [address] Mar, [facility] [place] [facility] [address] [id number] [place] [address] Mar, [facility] [place] [facility] [address] [id number] [place] [address] Mar, [facility] [place] [facility] [address] [id number] [place] [address] Mar, [facility] [place] [facility] [address] [id number] [place] [address] Mar, [facility] [place] [facility] [address] [id number] [place] [address] Mar, [facility] [place] [facility] [address] [id number] [place] [address] 2546 Mar, [facility] [place] [facility] [address] [id number] [place] [address] Feb, [facility] [place] [facility] [address] [id number] [place] [address] Feb, [facility] [place] [facility] [address] [id number] [place] [address] Feb, [facility] [place] [facility] [address] [id number] [place] [address] Jan, [facility] [place] [facility] [address] [id number] [place] [address] Jan, [facility] [place] [facility] [address] [id number] [place] [address] Jan, [facility] [place] [facility] [address] [id number] [place] [address] Dec, [facility] [place] [facility] [address] [id number] [place] [address] 15 Dec, 2011 [facility] [place] [facility] [address] [id number] [place] [address] Dec, [facility] [place] [facility] [address] [id number] [place] [address]235 Dec, [facility] [place] [facility] [address] [id number] [place] [address]83 Dec, [facility] [place] [facility] [address] [id number] [place] [address] Nov, [facility] [place] [facility] [address] [id number] [place] [address] Nov, [facility] [address] [id number] [place] [address] Oct, [facility] [place] [facility] [address] [id number] [place] [address] September, [facility] [place] [facility] [address] [id number] [place] [address] September, [facility] [place] [facility] [address] [id number] [place] [address] 8993 September, [facility] [place] [facility] [address] [id number] [place] [address] September, [facility] [place] [facility] [address] [id number] [place] [address]678 September, [facility] [place] [facility] [address] [id number] [place] [address] 140[address] Aug, [facility] [place] [facility] [address] [id number] [place] [address]- [address] 16 Jul, 2011 [facility] [place] [facility] [address] [id number] [place] [address] 15 Jul, 2011 [facility] [place] [facility] [address] [id number] [place] [address]- [address] 14 Jul, 2011 [facility] [place] [facility] [address] [id number] [place] [address] 14 Jul, 2011 [facility] [place] [facility] [address] [id number], [place] [address] Jul, [facility] [place] [facility] [address] [id number] [place] [address] 269[address] Jul, [facility] [place] [facility] [address] [id number] [place] [address] 08 Jul, 2011 [facility] [place] [facility] [address] [id number] [place] [address]- [address] 05 Jul, 2011 [facility] [place] [facility] [address] [id number] [place] [address] 27 Jun, 2011 [facility] [place] [facility] [address] [id number] [place] [address] 1633 16 Jun, 2011 [facility] [place] [facility] [address] [id number] [place] [address]104 10 Jun, 2011 [facility] [place] [facility] [address] [id number] [place] [address] May, [facility] [place] [facility] [address] [id number] [place] [address] 8[address] Apr, [facility] [place] [facility] [address] [id number] [place] [address] 42[address] Apr, [facility] [place] [facility] [address] [id number] [place] [address] 35[address] Mar, [facility] [place] [facility] [address] [id number] [place] [address] 6940 Mar, [facility] [place] [facility] [address] [id number] [place] [address]- 9222 Mar, [facility] [place] [facility] [address] [id number] [place] [address] Feb, [facility] [place] [facility] [address] [id number] [place] [address] 8057 Feb, [facility] [place] [facility] [address] [id number] [place] [address] 9020 Feb, [facility] [place] [facility] [address] [id number] [place] [address] 8086 Apr, [facility] [place] [facility] [address] [id number] [place] [address] 8434 Apr, [facility] [place] [facility] [address] [id number] [place] [address] 6510 Mar, [facility] [place] [facility] [address] [id number] [place] [address] 6654 Mar, [facility] [place] [facility] [address] [id number] [place] [address] Mar, [facility] [place] [facility] [address] [id number] [place] [address] 9607 Mar, [facility] [address] [id number] [place] [address] 9321 Mar, [facility] [place] [facility] [address] [id number] [place] [address] 8558 Feb, [facility] [address] [id number] [place] [address] 6865 September, [facility] [address] [id number] [place] [address]- 5339 Aug, [facility] [address] [id number] [place] [address] 9702 Apr, [facility] [address] [id number], [place] [address] 15 Apr, 2009 [facility] [address] [id number] [place] [address]- 4203 Mar, [facility] [place] [facility] [address] [id number], [place] [address] 49[address] Mar, [facility] [place] [facility] [address] [id number] [place] [address]- 7054 Mar, [facility] [place] [facility] [address] [id number], [place] [address] Feb, [facility] [place] [facility] [address] [id number], [place] [address] Jan, [facility] [place] [facility] [address] [id number], [place] [address]208 Dec, [facility] [place] [facility] [address] [id number], [place] [address] 3913 15 Nov, 2008 [facility] [place] [facility] [address] [id number], [place] [address] Oct, [facility] [address] [facility] [id number], [place] [address] 25[address] Apr, [facility] [address] [facility] [id number], [place] [address]- [address]46 Apr, [facility] [address] [facility] [id number], [place] [address]- 2546 Apr, [facility] [address] [facility] [id number], [place] [address] Feb, IMMUNIZATIONS No Known Immunizations SOCIAL HISTORY Never Assessed REASON FOR VISIT Lab PLAN OF CARE VITAL SIGNS MEDICATIONS Unknown Medications RESULTS No Results PROCEDURES Procedure Date Ordered Result Body Site CULTURE, BODY FLUID (STERILE) Mar 15, 2017 INSTRUCTIONS MEDICATIONS ADMINISTERED No Known Medications MEDICAL [...]
--- OUTSIDE RECORDS SUMMARY | 2017-12-04 17:45 | XMS REPORT ---
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 474492602091570 Problem Abnormal CT lung screening R93.8 Active 276885123 Problem Mild persistent asthma without complication J45.30 Active 967796307 Assessment RLS (restless legs syndrome) G25.81 Jan, Active 05912890 Problem Nicotine dependence, uncomplicated, unspecified nicotine product type F17.200 Active 94612813 Problem Restless leg syndrome G25.81 Active 37577624 ALLERGIES Substance Reaction Event Type Date Status Latex rash Drug Allergy Jan, Active Lyrica nightmares Drug Allergy Jan, Active Codeine Phosphate nausea and vomiting Drug Allergy Jan, Active SOCIAL HISTORY No smoking Hx information available PLAN OF CARE VITAL SIGNS Height 61 in 2016-01-26 Weight 163.5 lbs 2016-01-26 Heart Rate 72 bpm 2016-01-26 Respiratory Rate 20 2016-01-26 BMI 30.89 kg/m2 2016-01-26 Blood pressure systolic 130 mmHg 2016-01-26 Blood pressure diastolic 90 mmHg 2016-01-26 MEDICATIONS Medication Instructions Dosage Frequency Start Date End Date Duration Status Advair Diskus 250/50 INHALE ONE DOSE BY MOUTH IN THE MORNING AND ONE IN THE EVENING APPROXIMATELY 12 HOURS APART 30 Active Atenolol 100MG TAKE ONE TABLET BY MOUTH ONCE DAILY 30 Active Albuterol Sulfate HFA 108 (90 Base) MCG/ACT Inhalation every 4 hrs 2 puffs as needed 4h September, Active Parafon Forte DSC 500MG Orally 2 times a day 1 tablet 12h 30 Active Glucometer 1 test blood sugar Nov, Active Pantoprazole Sodium 40MG TAKE ONE TABLET BY MOUTH ONCE DAILY 30 Active Requip XL 4 MG Orally Once a day 1 tablet 24h September, Active Hydrocodone-Acetaminophen 10-325 MG Orally every 6 hrs take 1 tablet 6h Jul, Active Chlorpheniramine Maleate 8 mg 1 capsule by Oral route 2 times per day PRN Jan, Active RESULTS No Results PROCEDURES Procedure Date Ordered Related Diagnosis Body Site Office Visit, Est Pt., Level 3 Jan 26, 2016 IMMUNIZATIONS No Known Immunizations
--- OUTSIDE RECORDS SUMMARY | 2017-12-04 17:46 | XMS REPORT ---
Author CEDRIC Peñaloza Organization [employer] Address Unknown Phone Unavailable Care Team Providers Care Collator Name Role Phone CEDRIC LAWLER CP Unavailable [...] Start Date End Date Status Dosage Hydrocodone-Acetaminophen [facility] [address]-81 10-325 MG Orally every 6 hrs July 19, 2014 take 1 tablet Results No Known Results Summary Purpose [employer] Submission
--- OUTSIDE RECORDS SUMMARY | 2017-12-04 17:46 | XMS REPORT ---
Author Author CEDRIC LAWLER Organization [employer] Address Unknown Phone Unavailable Care Team Providers Care Marketing Developer Name Role Phone CEDRIC LAWLER CP Unavailable [...] Medications Results No Known Results Summary Purpose [employer] Submission
--- OUTSIDE RECORDS SUMMARY | 2017-12-04 17:46 | XMS REPORT ---
Author Author CEDRIC LAWLER [facility] Address [address] [place] [address] Care Team Providers Care Director Of Online Merchandising Name Role Phone NURIS CEDRIC Unavailable PROBLEMS Type Condition ICD9-CM Code [id number] Code Onset Dates Condition Status SNOMED Code Problem Restless leg syndrome G25.81 Active 90696189 Problem Essential hypertension I10 Active 94914056 Problem Diabetes mellitus type 2, controlled E11.9 Active 235084226 Problem Mild persistent asthma without complication J45.30 Active 743991996 Problem Nicotine dependence, uncomplicated, unspecified nicotine product type F17.200 Active 12594503 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 342854952729302 Problem Abnormal CT lung screening R93.8 Active 758069701 ALLERGIES Substance Reaction Event Type Date Status Latex rash Drug Allergy Jun, Active Lyrica nightmares Drug Allergy Jun, Active Codeine Phosphate nausea and vomiting Drug Allergy Jun, Active SOCIAL HISTORY No smoking Hx information available PLAN OF CARE VITAL SIGNS Height 61 in 2016-06-15 Weight 159.1 lbs 2016-06-15 Temperature 98.6 degrees Fahrenheit 2016-06-15 Heart Rate 84 bpm 2016-06-15 Respiratory Rate 20 2016-06-15 BMI 30.06 kg/m2 2016-06-15 Blood pressure systolic 148 mmHg 2016-06-15 Blood pressure diastolic 86 mmHg 2016-06-15 MEDICATIONS Medication Instructions Dosage Frequency Start Date End Date Duration Status Parafon Forte DSC 500MG Orally 2 times a day 1 tablet 12h 30 Active Albuterol Sulfate HFA 108 (90 Base) MCG/ACT Inhalation every 4 hrs 2 puffs as needed 4h September, Active Glucometer 1 test blood sugar Nov, Active Pantoprazole Sodium 40MG Orally Once a day TAKE ONE TABLET BY MOUTH ONCE DAILY 24h 90 days Active Requip XL 4 MG Orally Once a day 1 tablet 24h September, Active Amoxicillin 500 MG Orally 3 times a day 1 capsule 8h Jun, Jun, 14 days Active Hydrocodone-Acetaminophen 10-325 MG Orally every 6 hrs-MUST HAVE APPT FOR FURTHER REFILLS take 1 tablet May, 28 days Active Chlorpheniramine Maleate 8 mg 1 capsule by Oral route 2 times per day PRN Jan, Active Advair Diskus 250/50 INHALE ONE DOSE BY MOUTH IN THE MORNING AND ONE IN THE EVENING APPROXIMATELY 12 HOURS APART 30 Active Atenolol 100MG Orally Once a day 1 tablet 24h 90 days Active RESULTS Name Result Date Reference Range A1C (IN HOUSE) 2016-06-15 A1C IN HOUSE 6.9 4.3 - 5.6 % Previous A1c 7.9 Lot [id number] Exp date MICROALBUMIN, URINE (IN HOUSE) 2016-06-15 MICROALBUMIN normal Lot # [id number] Exp date 06/2017 Clarity clear Color yellow ALB 10 CRE 200 A:C (IN HOUSE) <30 Control + Control Lot # Exp date [employer] 2016-06-15 PROCEDURES Procedure Date Ordered Related Diagnosis Body Site GLYCATED HEMOGLOBIN TEST Jun 15, 2016 Office Visit, Est Pt., Level 3 Jun 15, 2016 No Charge Jun 15, 2016 MICROALBUMIN, SEMIQUANT Jun 15, 2016 IMMUNIZATIONS No Known Immunizations
--- OUTSIDE RECORDS SUMMARY | 2017-12-04 17:46 | XMS REPORT ---
Author Author CEDRIC LAWLER Organization [facility] Address [address] [place] [address] Care Team Providers Care Pattern Finisher Name Role Phone NURIS CEDRIC Unavailable PROBLEMS Type Condition ICD9-CM Code [id number] Code Onset Dates Condition Status SNOMED Code Problem Nicotine dependence, uncomplicated, unspecified nicotine product type F17.200 Active 94647503 Problem Restless leg syndrome G25.81 Active 41961211 Problem Mild persistent asthma without complication J45.30 Active 765986500 Problem RLS (restless legs syndrome) G25.81 Active 13124189 Problem Hypertension, benign I10 Active 68236468 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
--- OUTSIDE RECORDS SUMMARY | 2017-12-04 17:46 | XMS REPORT ---
Author Author CEDRIC LAWLER Organization [facility] Address [address] [place] [address] Care Team Providers Care Distributor Sales Consultant Name Role Phone CEDRIC LAWLER Unavailable PROBLEMS Type Condition ICD9-CM Code ZTU26-LG Code Onset Dates Condition Status SNOMED Code Problem Nicotine dependence, uncomplicated, unspecified nicotine product type F17.200 Active 48255766 Problem Restless leg syndrome G25.81 Active 81680296 Problem Mild persistent asthma without complication J45.30 Active 052880225 Problem RLS (restless legs syndrome) G25.81 Active 90311714 Problem Hypertension, benign I10 Active 29641198 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 069582852617010 Problem Abnormal CT lung screening R93.8 Active 830022178 Problem Essential hypertension I10 Active 03908113 Problem Diabetes mellitus type 2, controlled E11.9 Active 850971125 ALLERGIES No Information ENCOUNTERS Encounter Location Date Diagnosis [facility] [address] [address] September, [facility] [id number] [place] [address]2085 -2929 Jul, Chronic cough R05 [facility] [address] 21619- [address]289 Jul, [facility] [id number] [place] [address] 39849- 0077 Jul, Diabetes mellitus type 2, controlled E11.9 [facility] [address] 34063- 0702 14 Jul, 2017 [facility] [address] 18605- 1682 02 Jul, 2017 [facility] [address] 33396- 8590 Jun, [facility] [address] [address] Jun, Diabetes mellitus type 2, controlled E11.9 [facility] [address] [address] 3927 Jun, [facility] [id number] [place] [address] 91645- 9299 May, [facility] [address] [place] [address] 52711- 9312 May, Diabetes mellitus type 2, controlled E11.9 [facility] [id number] [place] [address] 90767- 8220 Apr, [facility] [id number] [place] [address] 21503- 8299 Apr, Pneumonia of right upper lobe due to infectious organism J18.1 [facility] [address] [id number] [address] 8798 Mar, [facility] [id number] [place] [address] 88720- 4472 Mar, [facility] [address], [place] [address] 43[address] Mar, [facility] [address] [place] [address] 41475- 3420 Mar, Coughing R05 and SOB (shortness of breath) R06.02 [facility] [address] [address] 4313 02 Mar, 2017 Diabetes mellitus type 2, controlled E11.9 ; Coughing R05 and SOB (shortness of breath) R06.02 [facility] [address], [place] [address]- 7790 Feb, [facility] [id number] [place] [address] 78691- 9099 Feb, [facility] [address], [place] [address]- 8341 25 Jan, 2017 Hypertension, benign I10 and RLS (restless legs syndrome) G25.81 [facility] [id number] [place] [address] 43809- 7281 14 Jan, 2017 [facility] [id number] [place] [address] 91352- 1227 Dec, Pain in unspecified joint M25.50 and Mild persistent asthma without complication J45.30 [facility] [id number] [place] [address] 33915- 5327 Dec, [facility] [id number] [place] [address] 54360- [address] Dec, [address] lung screening R93.8 [facility] [id number] [place] [address] 60066- 7914 Dec, [facility] [id number] [place] [address] 92836- 5936 Nov, Screening for breast cancer Z12.31 [facility] [id number] [place] [address] 30749- 6022 Nov, [facility] [id number] [place] [address] 55980- 3739 Nov, Essential hypertension I10 [facility] [id number] [place] [address] 54959- 7495 Nov, Essential hypertension I10 [facility] [address] [place] [address] 12398- 7202 Oct, Acute non-recurrent maxillary sinusitis J01.00 [facility] [id number] [place] [address] 55257- 7557 Oct, [facility] [id number] [place] [address] 70398- 5903 September, Acute non-recurrent maxillary sinusitis J01.00 [facility] [address], [place] [address] September, Low back pain M54.5 [facility] [id number] [place] [address] 82836- 2952 September, [facility] [id number] [place] [address] 71499- 3817 Aug, Acute non-recurrent maxillary sinusitis J01.00 [facility] [address] [place] [address] [id number] Aug, Dental examination Z01.20 [facility] [id number] [place] [address] 81245- 2708 Aug, [facility] [id number] [place] [address] 49790- 6074 Aug, [facility] [id number] [place] [address] 44536- 0915 Aug, [facility] [id number] [place] [address] 23105- 9582 Aug, Acute sinusitis J01.90 [facility] [id number] [place] [address] 44410- 7851 Jul, [facility] [id number] [place] [address] 16780- 5795 Jul, [facility] [address] [place] [address] 87454- 1024 Jul, [facility] [address] [place] [address] 54469- 8511 Jul, [facility] [id number] [place] [address] 05929- 4565 Jul, Frequent urination R35.0 and Acute cystitis with hematuria N30.01 [facility] [address] [place] [address] 65897- 2402 Jul, [facility] [id number] [place] [address] 19859- 5082 Jun, [facility] [id number] [place] [address] 91432- 2114 Jun, Acute sinusitis J01.90 [facility] [id number] [place] [address] 46228- 4524 Jun, Diabetes mellitus type 2, controlled E11.9 ; Cough R05 ; Acute non-recurrent maxillary sinusitis J01.00 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 [facility] [id number] [place] [address] 38895- 3834 May, [facility] [id number] [place] [address] 81915- 6953 May, [facility] [id number] [place] [address] 68125- 0786 May, [facility] [id number] [place] [address] 32095- 1661 Apr, [facility] [id number] [place] [address] 87821- 9888 Apr, [facility] [id number] [place] [address] 73510- 4028 Apr, [facility] [address] [place] [address] 75948 -7574 Apr, Acute non-recurrent maxillary sinusitis J01.00 [facility] [id number] [place] [address] 95164- 9290 Apr, [facility] [id number] [place] [address] 75423- 9711 Feb, [facility] [id number] [place] [address] 71963- 6052 Feb, [facility] [id number] [place] [address] 62139- 2994 Feb, [facility] [address] [place] [address] 99261- 2054 Feb, [facility] [id number] [place] [address] 96608- 0446 Feb, [facility] [id number] [place] [address] 16661- 1418 Feb, [facility] [id number] [place] [address] 25276- 4855 Jan, RLS (restless legs syndrome) G25.81 ; Osteoarthritis of spine with radiculopathy, cervical region M47.22 ; Lumbar neuritis M54.16 and Left sciatic nerve pain M54.32 [facility] [id number] [place] [address] 63171- 7968 Jan, [facility] [id number] [place] [address] 03722- 8959 Dec, [facility] [id number] [place] [address] 21915- 2899 Nov, [facility] [id number] [place] [address] 94785- 2640 Nov, [facility] [id number] [place] [address] 20426- 6118 Nov, [facility] [id number] [place] [address] 40543- 5961 Nov, Restless leg syndrome G25.81 and Controlled type 2 diabetes mellitus without complication, without long-term current use of insulin E11.9 [facility] [id number] [place] [address] 18454- 7474 Nov, [facility] [id number] [place] [address] 55289- 0749 Oct, [facility] [id number] [place] [address] 38912- 5432 Oct, [facility] [id number] [place] [address] 27662- 8045 Oct, [facility] [id number] [place] [address] 18988- 9382 Oct, 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 lung screening R93.8 [facility] [id number] [place] [address] 58586- 6759 Oct, [facility] [id number] [place] [address] 77174- 9103 September, [facility] [id number] [place] [address] 70751- 3312 September, Physical exam, annual Z00.00 ; Nicotine dependence, uncomplicated, unspecified nicotine product type F17.200 ; Screening breast examination Z12.39 ; Restless leg syndrome G25.81 and Mild persistent asthma without complication J45.30 [facility] [id number] [place] [address] 13996- 5906 September, [facility] [id number] [place] [address] 71456- 2580 September, [facility] [id number] [place] [address] 87588- 4105 Aug, [facility] [id number] [place] [address] 63324- 2370 Jul, Dental examination Z01.20 and Dental caries K02.9 [facility] [id number] [place] [address] 31521- 1442 Jul, [facility] [id number] [place] [address] 32487- 6368 Jul, Diabetes mellitus type 2, controlled E11.9 and Pain in unspecified joint M25.50 [facility] [id number] [place] [address] 04622- 9351 Jul, [facility] [id number] [place] [address] 43363- 0163 Jun, Dental examination Z01.20 [facility] [id number] [place] [address] 29962- 1369 May, [facility] [id number] [place] [address] 01928- 3417 May, [facility] [id number] [place] [address] 37510- 9679 Apr, [facility] [id number] [place] [address] 17178- 0731 Mar, [facility] [id number] [place] [address] 01169- 7441 Mar, Acute sinusitis J01.90 [facility] [id number] [place] [address] 20124- 4188 Feb, [facility] [id number] [place] [address] 76429- 3604 Jan, Flu vaccine need V04.81 [facility] [id number] [place] [address] 28794- 3713 Jan, [facility] [id number] [place] [address] 61559- 6862 Jan, Pain in joint, site unspecified 719.40 [facility] [id number] [place] [address] 27651- 0119 Dec, Pain in joint, site unspecified 719.40 [facility] [id number] [place] [address] 01027- 8620 Dec, [facility] [id number] [place] [address] 75996- 2111 Dec, [facility] [id number] [place] [address] 87845- 1444 Dec, Sciatica 724.3 ; Restless legs syndrome [RLS] 333.94 and Encounter for smoking cessation counseling V65.42 [facility] [address] [id number] [place] [address]- 2557 Dec, Nicotine dependence 305.1 [facility] [place] [facility] [address] [id number] [place] [address]- 0386 Nov, [facility] [place] [facility] [address] [facility] [id number] [place] [address]- 3710 Oct, [facility] [place] [facility] [address] [id number] [place] [address]- 3863 Oct, [facility] [place] [facility] [address] [id number] [place] [address]- 3941 September, [facility] [place] [facility] [address] [id number] [place] [address]- 4175 Aug, [facility] [place] [facility] [address] [facility] [id number] [place] [address]- 0245 Aug, [facility] [place] [facility] [address] [facility] [id number], [place] [address]- 9474 Jul, [facility] [place] [facility] [address] [facility] [id number] [place] [address]- 5342 Jul, [facility] [place] [facility] [id number] [address]- 5995 Jul, [facility] [place] [facility] [id number], [place] [address]- 9296 Jun, [facility] [place] [facility] [address] [id number], [place] [address]- 4011 Jun, [facility] [place] [facility] [address] [facility] [id number] [place] [address]- 8969 Jun, [facility] [place] [facility] [address] [facility] [id number], [place] [address]- 4094 Jun, [facility] [place] [facility] [address] [facility] [id number], [place] [address]- 4524 May, [facility] [place] [facility] [address] [facility] [id number], [place] [address]- 8593 May, [facility] [address] [id number] [place] [address]- 5269 May, [facility] [place] [facility] [address] [id number] [place] [address]- 4437 May, [facility] [place] [facility] [address] [id number] [place] [address]- 0659 May, [facility] [place] [facility] [address] [id number] [place] [address]- 8894 May, [facility] [place] [facility] [address] [id number] [place] [address]- 7073 May, [facility] [place] [facility] [address] [id number] [place] [address]- 6897 Apr, [facility] [address] [id number] [place] [address]- 4286 Apr, [facility] [place] [facility] [address] [id number] [place] [address]- 1473 Apr, [facility] [place] [facility] [address] [id number] [place] [address]- 9012 Apr, [facility] [place] [facility] [address] [facility] [id number] [place] [address]- 3364 Apr, [facility] [place] [facility] [address] [id number] [place] [address]- 3376 Apr, [facility] [place] [facility] [address] [id number] [place] [address]- 1625 Apr, [facility] [place] [facility] [address] [id number] [place] [address]- 6964 Apr, [facility] [place] [facility] [address] [id number] [place] [address]- 4319 Apr, [facility] [place] [facility] [address] [id number] [place] [address]- 9358 Apr, [facility] [place] [facility] [address] [id number] [place] [address]- 5156 07 Mar, 2014 [facility] [place] [facility] [address] [id number] [place] [address]- 7213 07 Mar, 2014 [facility] [place] [facility] [address] [id number] [place] [address]- 3536 Mar, [facility] [place] [facility] [address] [id number] [place] 8867 Mar, [facility] [place] [facility] [address] [id number] [place] [address]- 4582 Mar, [facility] [place] [facility] [address] [id number] [place] [address]- 6964 Mar, [facility] [place] [facility] [address] [id number] [place] [address]- 0324 15 Feb, 2014 [facility] [place] [facility] [address] [id number] [place] [address]- 8953 15 Feb, 2014 [facility] [place] [facility] [address] [id number] [place] [address]- 5020 10 Feb, 2014 [facility] [place] [facility] [address] [id number] [place] [address]- 3319 10 Feb, 2014 [facility] [place] [facility] [address] [id number] [place] [address]- 1321 10 Feb, 2014 [facility] [place] [facility] [address] [id number] [place] [address]- 0043 10 Feb, 2014 [facility] [place] [facility] [address] [id number] [place] [address]- 0770 22 Jan, 2014 [facility] [place] [facility] [address] [id number] [place] [address]- 5861 22 Jan, 2014 [facility] [place] [facility] [address] [id number] [place] [address]- 6106 11 Jan, 2014 [facility] [place] [facility] [address] [id number] [place] [address]- 1854 Jan, [facility] [place] [facility] [address] [id number] [place] [address]- 2461 Dec, [facility] [place] [facility] [address] [id number] [place] [address]- 0704 Dec, [facility] [place] [facility] [address] [id number] [place] [address]- 6285 Dec, [facility] [place] [facility] [address] [id number] [place] [address]- 2918 Dec, [facility] [place] [facility] [address] [id number] [place] [address]- 0741 Dec, [facility] [place] [facility] [address] [id number] [place] [address]- 9195 Nov, [facility] [place] [facility] [address] [id number] [place] [address]- 2780 Nov, [facility] [place] [facility] [address] [id number] [place] [address]- 7734 Nov, [facility] [place] [facility] [address] [id number] [place] [address]- 0175 Nov, [facility] [place] [facility] [address] [id number] [place] [address]- 3750 Nov, [facility] [place] [facility] [address] [id number] [place] [address]- 0056 Nov, [facility] [place] [facility] [address] [id number] [place] [address]- 9874 Oct, [facility] [place] [facility] [address] [id number] [place] [address]- 7518 Oct, [facility] [place] [facility] [address] [id number] [place] [address]- 3268 September, [facility] [place] [facility] [address] [id number] [place] [address]- 7706 September, [facility] [place] [facility] [address] [id number] [place] [address]- 1178 14 Sep, 2013 [facility] [place] [facility] [address] [id number] [place] [address]- 5111 14 Sep, 2013 [facility] [place] [facility] [address] [id number] [place] [address]- 6015 14 Aug, 2013 [facility] [place] [facility] [address] [id number] [place] [address]- 3959 Aug, [facility] [place] [facility] [address] [id number] [place] [address]- 7625 17 Jul, 2013 [facility] [place] [facility] [address] [id number] [place] [address]- 7104 17 Jul, 2013 [facility] [place] [facility] [address] [id number] [place] [address]- 2902 Jul, [facility] [place] [facility] [address] [id number] [place] [address]- 0395 Jul, [facility] [place] [facility] [address] [id number] [place] [address]- 1744 Jun, [facility] [place] [facility] [address] [id number] [place] [address]- 1956 Jun, [facility] [place] [facility] [address] [id number] [place] [address] Jun, [facility] [place] [facility] [address] [id number] [place] [address] Jun, [facility] [place] [facility] [address] [id number] [place] [address] May, [facility] [place] [facility] [address] [id number] [place] [address] May, [facility] [place] [facility] [address] [id number] [place] [address] May, [facility] [place] [facility] [address] [id number] [place] [address] May, [facility] [place] [facility] [address] [id number] [place] [address] Apr, [facility] [place] [facility] [address] [id number] [place] [address] Apr, [facility] [place] [facility] [address] [id number] [place] [address] Apr, [facility] [place] [facility] [address] [id number] [place] [address] Mar, [facility] [place] [facility] [address] [id number] [place] [address] Mar, [facility] [place] [facility] [address] [id number] [place] [address] Mar, [facility] [place] [facility] [address] [id number] [place] [address] Mar, [facility] [place] [facility] [address] [id number], [place] [address] Feb, [facility] [place] [facility] [address] [id number] [place] [address] Feb, [facility] [place] [facility] [address] [id number], [place] [address] Feb, [facility] [place] [facility] [address] [id number], [place] [address] Feb, [facility] [place] [facility] [address] [id number], [place] [address] Feb, [facility] [place] [facility] [address] [id number], [place] [address] Feb, [facility] [place] [facility] [address] [id number], [place] [address] Feb, [facility] [place] [facility] [address] [id number][place] [address] Feb, [facility] [place] [facility] [address] [id number], [place] [address] Jan, [facility] [address] [id number] [place] [address] Jan, [facility] [place] [facility] [address] [id number] [place] [address] Jan, [facility] [address] [id number] [place] [address] Dec, [facility] [place] [facility] [address] [id number] [place] [address] Dec, [facility] [address] [id number] [place] [address] Nov, [facility] [address] [id number] [place] [address] Nov, [facility] [address] [id number] [place] [address] Nov, [facility] [address] [id number] [place] [address] Nov, [facility] [address] [id number] [place] [address] Oct, [facility] [address] [id number] [place] [address] Oct, [facility] [address] [id number] [place] [address] Oct, [facility] [place] [facility] [address] [id number] [place] [address] September, [facility] [place] [facility] [address] [id number] [place] [address] September, [facility] [place] [facility] [address] [id number] [place] [address] September, [facility] [place] [facility] [address] [id number] [place] [address] 2010 September, [facility] [place] [facility] [address] [id number] [place] [address] Aug, [facility] [address] [id number] [place] [address] Aug, [facility] [place] [facility] [address] [id number] [place] [address] Jul, [facility] [place] [facility] [address] [id number] [place] [address] Jul, [facility] [place] [facility] [address] [id number] [place] [address] 06 Jul, 2012 [facility] [place] [facility] [address] [address] [id number] [place] [address] 05 Jul, 2012 [facility] [place] [facility] [address] [id number] [place] [address] Jul, [facility] [place] [facility] [address] [id number] [place] [address] Jun, [facility] [place] [facility] [address] [id number] [place] [address] Jun, [facility] [place] [facility] [address] [id number] [place] [address] Jun, [facility] [place] [facility] [address] [id number] [place] [address] May, [facility] [place] [facility] [address] [id number] [place] [address] May, [facility] [place] [facility] [address] [id number] [place] [address] May, [facility] [place] [facility] [address] [id number] [place] [address] Apr, [facility] [place] [facility] [address] [id number] [place] [address] Apr, [facility] [place] [facility] [address] [id number], [place] [address] Apr, [facility] [place] [facility] [address] [id number] [place] [address] Apr, [facility] [place] [facility] [address] [id number] [place] [address] Apr, [facility] [place] [facility] [address] [facility] [id number] [place] [address] Apr, [facility] [place] [facility] [address] [id number] [place] [address] Apr, [facility] [place] [facility] [address] [id number] [place] [address] Apr, [facility] [place] [facility] [address] [id number] [place] [address] Mar, [facility] [place] [facility] [address] [id number] [place] [address] Mar, [facility] [place] [facility] [address] [id number], [place] [address] Mar, [facility] [place] [facility] [address] [id number] [place] [address] Mar, [facility] [place] [facility] [address] [id number] [place] [address] Mar, [facility] [place] [facility] [address] [id number], [place] [address] Mar, [facility] [place] [facility] [address] [id number], [place] [address] Mar, [facility] [place] [facility] [address] [id number], [place] [address] Mar, [facility] [place] [facility] [address] [facility] [id number], [place] [address] Mar, [facility] [place] [facility] [address] [facility] [id number], [place] [address] Mar, [facility] [place] [facility] [address] [id number] [place] [address] Feb, [facility] [address] [id number] [place] [address] Feb, [facility] [place] [facility] [address] [id number] [place] [address]666 Feb, [facility] [address] [id number] [place] [address] Jan, [facility] [place] [facility] [address] [id number] [place] [address] Jan, [facility] [place] [facility] [address] [id number] [place] [address] 8615 Jan, [facility] [place] [facility] [address] [id number] [place] [address]686 Dec, [facility] [place] [facility] [address] [id number] [place] [address] Dec, [facility] [address] [id number] [place] [address] Dec, [facility] [place] [facility] [address] [id number] [place] [address] Dec, [facility] [address] [id number] [place] [address] Dec, [facility] [place] [facility] [address] [id number] [place] [address] Nov, [facility] [place] [facility] [address] [id number] [place] [address] 2635 Nov, [facility] [place] [facility] [address] [id number] [place] [address] Oct, [facility] [place] [facility] [address] [id number] [place] [address] September, [facility] [place] [facility] [address] [id number] [place] [address] September, [facility] [address] [id number] [place] [address] September, [facility] [place] [facility] [address] [id number] [place] [address] 7636 September, [facility] [place] [facility] [address] [id number] [place] [address]36 September, [facility] [place] [facility] [address] [id number] [place] [address] 10[address] Aug, [facility] [place] [facility] [address] [id number] [place] [address] 1453 16 Jul, 2011 [facility] [place] [facility] [address] [id number] [place] [address]646 15 Jul, 2011 [facility] [place] [facility] [address] [id number] [place] [address] 14 Jul, 2011 [facility] [place] [facility] [address] [id number] [place] [address] 14 Jul, 2011 [facility] [place] [facility] [address] [id number] [place] [address] Jul, [facility] [place] [facility] [address] [id number] [place] [address] Jul, [facility] [place] [facility] [address] [id number] [place] [address] Jul, [facility] [place] [facility] [address] [id number] [place] [address]- 8726 05 Jul, 2011 [facility] [place] [facility] [address] [id number] [place] [address] 97[address] Jun, [facility] [place] [facility] [address] [id number] [place] [address]- 6256 16 Jun, 2011 [facility] [place] [facility] [address] [id number] [place] [address] 9066 Jun, [facility] [place] [facility] [address] [id number] [place] [address] 1634 10 May, 2011 [facility] [place] [facility] [address] [id number] [place] [address] 4055 Apr, [facility] [place] [facility] [address] [id number] [place] [address] 9143 Apr, [facility] [place] [facility] [address] [id number] [place] [address] 5485 Mar, [facility] [place] [facility] [address] [id number] [place] [address] 2860 Mar, [facility] [place] [facility] [address] [id number] [place] [address] 4307 Mar, [facility] [place] [facility] [address] [id number] [place] [address] 9439 Feb, [facility] [place] [facility] [address] [id number] [place] [address] 8409 Feb, [facility] [place] [facility] [address] [id number] [place] [address] 0942 Feb, [facility] [place] [facility] [address] [id number] [place] [address] 6[address] Apr, [facility] [place] [facility] [address] [facility] [id number] [place] [address]- 6240 Apr, [facility] [place] [facility] [address] [id number] [place] [address]- 9876 Mar, [facility] [place] [facility] [address] [id number] [place] [address]- 2238 Mar, [facility] [place] [facility] [address] [id number] [place] [address]- 9467 Mar, [facility] [place] [facility] [address] [id number] [place] [address]- 0455 Mar, [facility] [place] [facility] [address] [facility] [id number] [place] [address]- 2039 Mar, [facility] [place] [facility] [address] [id number] [place] [address]- 4093 13 Feb, 2010 [facility] [place] [facility] [address] [id number] [place] [address]- 8640 September, [facility] [place] [facility] [address] [id number] [place] [address]- 3865 Aug, [facility] [place] [facility] [address] [id number] [place] [address]- 3094 Apr, [facility] [place] [facility] [address] [id number] [place] [address]- 3306 15 Apr, 2009 [facility] [place] [facility] [address] [id number] [place] [address]- 2198 Mar, [facility] [place] [facility] [address] [facility] [id number] [place] [address]- 2680 Mar, [facility] [place] [facility] [address] [id number] [place] [address]- 7458 Mar, [facility] [place] [facility] [address] [id number] [place] [address]- 6187 Feb, [facility] [place] [facility] [address] [id number] [place] [address]- 5537 18 Jan, 2009 [facility] [place] [facility] [address] [id number] [place] [address]- 4128 Dec, [facility] [place] [facility] [address] [id number], [place] [address]- [address] 15 Nov, 2008 [facility] [place] [facility] [address] [id number] [place] [address]- 4729 Oct, [facility] [place] [facility] [address] [id number] [place] [address]- 1448 Apr, [facility] [place] [facility] [address] [id number] [place] [address]- 9512 Apr, [facility] [place] [facility] [address] [id number], [place] [address] Apr, [facility] [address] [facility] [id number] [place] [address] Feb, IMMUNIZATIONS No Known Immunizations SOCIAL HISTORY Never Assessed REASON FOR VISIT PA for CT Chest Low Dose PLAN OF CARE VITAL SIGNS MEDICATIONS Unknown [...]
--- NOTE | 2017-12-04 17:47 | ED Chest Pain ---
General Stated Complaint: CP Source: patient Exam Limitations: no limitations History of Present Illness Date Seen by Provider: Dec 04, 2017 Time Seen by Provider: 17:34 Initial Comments Patient presents to ER by EMS with chief complaint of pain starting in her back radiating to her front. She has no history of coronary artery disease, AAA. She discovered the pain is sharp 10 of 10. She received 324 mg aspirin on route as well as a single dose of nitroglycerin which bottomed her blood pressure out. They got her back with some IV fluids and obtain leads that looked like elevation in her inferior leads. She is a history of diabetes, smoking, high blood pressure for which she uses atenolol, high cholesterol. Allergies and Home Medications Allergies Coded Allergies: latex (Unverified Allergy, Mild, RASH, 08/24/08) codeine (Verified Adverse Reaction, Mild, N/V, 08/30/08) Home Medications Atenolol 100 Mg Tablet, 100 MG PO DAILY, (Reported) Chlorzoxazone 500 Mg Tablet, 500 MG PO UD, (Reported) Hydrocodone/Acetaminophen 1 Each Tablet, Unknown Dose PO PRN PRN for PAIN, ( Reported) Lansoprazole 15 Mg Capsule.dr, Unknown Dose PO DAILY, (Reported) Methylprednisolone 4 Mg Tab.ds.pk, 4 MG PO UD Prescribed by: MANOLO ALONZO on 07/30/16 1412 Patient Home Medication List Home Medication List Reviewed: Yes Review of Systems Constitutional: No chills; diaphoresis; No fever; malaise EENTM: No Blurred Vision, No Double Vision Respiratory: Denies Cough, Denies Shortness of Air Cardiovascular: See HPI, Chest Pain; Denies Edema, Denies Lightheadedness, Denies Palpitations, Denies Syncope Gastrointestinal: Denies Abdomen Distended, Denies Abdominal Pain, Denies Constipated, Denies Diarrhea; Nausea; Denies Vomiting Genitourinary: Denies Burning, Denies Discharge Musculoskeletal: see HPI, back pain; No joint pain Skin: No pruritus, No rash Past Ompyquo-Dkqnyc-Ryqcpd Hx Patient Social History Alcohol Use: Denies Use Recreational Drug Use: No Smoking Status: Current Everyday Smoker Type Used: Cigarettes Recent Hopitalizations: Yes (ER VISIT) Past Medical History Gallbladder, Hysterectomy, Oophorectomy Hypertension Reproductive Disorders: No Sexually Transmitted Disease: No Fibromyalgia, Chronic Back Pain Diabetes, Non-Insulin dep Physical Exam Vital Signs Capillary Refill : Height, Weight, BMI Height: 5'1" Weight: 160lbs. oz. 72.216827vt; BMI Method:Stated General Appearance: WD/WN, Moderate Distress HEENT: PERRL/EOMI, Pharynx Normal, Moist Mucous Membranes Neck: Full Range of Motion, Supple Respiratory: Chest Non Tender, Lungs Clear, Normal Breath Sounds, No Accessory Muscle Use, No Respiratory Distress Cardiovascular: Regular Rate, Rhythm, No Edema, Normal Peripheral Pulses Gastrointestinal: Normal Bowel Sounds, Non Tender, Soft Neurologic/Psychiatric: Alert, Oriented x3 Critical Care Note Critical Care Start Time: 17:34 Stop Time: 18:00 Total Time (minutes) 26 Progress Upon EMS report by phone [facility] was notified to be prepared for possible STEMI. Patient presents to the ER with EMS with a chief complaint that she is having some back pain radiating to the front and EKG per EMS showed ST elevation. She was given aspirin 3 and a 24 mg by EMS as well as nitroglycerin which bottomed her blood pressure out. They started an IV bolus and brought her blood pressure back up to above 200 systolic. A sheet was having increasing pain sweating nausea and many risk factors for coronary disease but no direct personal history of coronary artery disease. EKG was obtained for minutes after arrival demonstrating significant 4-[address] elevation in the inferior leads 2, 3 and aVF. She had reciprocal depression changes in V1, V2 and some elevation in the lateral V5 V6 leads contiguously. This is consistent with an ST elevation myocardial infarction. Immediately the [facility] was activated and the on-call adult high school instructor Dr. Mcclain was called and notified. He ordered 180 mg of Brilinta and 5000 units IV heparin which was given but the Brilinta was unable to be given as the patient started to go into V. fib/V. tach. The paddles were already on her so we switched from monitor mode to defibrillation mode set the power to 200 J cleared everyone and delivered one shock which brought her into a sinus rhythm similar to prior and patient had a easily palpable carotid pulse. Less than 5 seconds of chest compressions had be delivered. Within 15 seconds the patient was awake, alert, oriented 3 and answering questions appropriately. She says her pain had improved from before her V. fib episode. After a few minutes of rest she was given some Zofran 8 mg and the Brilinta 180 mg was delivered by mouth. We stayed with the patient monitoring her labs and vital signs until [facility] personnel showed up and transported the patient to the [facility] and Dr. Mcclain could perform cardiac catheterization. Progress/Results/Core Measures Results/Orders Lab Results Laboratory Tests Test 12/04/17 17:35 Range/Units White Blood Count 7.7 4.3-11.0 10^3/uL Red Blood Count 5.04 4.35-5.85 10^6/uL Hemoglobin 15.2 11.5-16.0 G/DL Hematocrit 46 35-52 % Mean Corpuscular Volume 90 80-99 FL Mean Corpuscular Hemoglobin 30 25-34 PG Mean Corpuscular Hemoglobin Concent 33 32-36 G/DL Red Cell Distribution Width 14.0 10.0-14.5 % Platelet Count 142 130-400 10^3/uL Mean Platelet Volume 10.3 7.4-10.4 FL Neutrophils (%) (Auto) 44 42-75 % Lymphocytes (%) (Auto) 44 12-44 % Monocytes (%) (Auto) 9 0-12 % Eosinophils (%) (Auto) 3 0-10 % Basophils (%) (Auto) 1 0-10 % Neutrophils # (Auto) 3.4 1.8-7.8 X 10^3 Lymphocytes # (Auto) 3.4 1.0-4.0 X 10^3 Monocytes # (Auto) 0.7 0.0-1.0 X 10^3 Eosinophils # (Auto) 0.2 0.0-0.3 10^3/uL Basophils # (Auto) 0.0 0.0-0.1 10^3/uL Prothrombin Time 15.3 H 12.2-14.7 SEC INR Comment 1.2 0.8-1.4 Activated Partial Thromboplast Time 34 24-35 SEC Sodium Level 136 135-145 MMOL/L Potassium Level 3.7 3.6-5.0 MMOL/L Chloride Level 105 98-107 MMOL/L Carbon Dioxide Level 25 21-32 MMOL/L Anion Gap 6 5-14 MMOL/L Blood Urea Nitrogen 11 7-18 MG/DL Creatinine 0.74 0.60-1.30 MG/DL Estimat Glomerular Filtration Rate > 60 BUN/Creatinine Ratio 15 Glucose Level 251 H 70-105 MG/DL Calcium Level 9.1 8.5-10.1 MG/DL Magnesium Level 1.9 1.8-2.4 MG/DL Total Bilirubin 0.5 0.1-1.0 MG/DL Aspartate Amino Transf (AST/SGOT) 51 H 5-34 U/L Alanine Aminotransferase (ALT/SGPT) 47 0-55 U/L Alkaline Phosphatase 79 40-136 U/L Myoglobin 37.2 10.0-92.0 NG/ML Troponin I < 0.30 <0.30 NG/ML B-Type Natriuretic Peptide 26.3 <100.0 PG/ML Total Protein 6.3 L 6.4-8.2 GM/DL Albumin 4.0 3.2-4.5 GM/DL My Orders Orders - ELIDA SABA Cbc With Automated Diff (12/04/17 17:41) Magnesium (12/04/17 17:41) Chest 1 View, Ap/Pa Only (12/04/17 17:41) Ekg Tracing (12/04/17 17:41) Cardiac Profile 1 (12/04/17 17:41) Comprehensive Metabolic Panel (12/04/17 17:41) Myoglobin Serum (12/04/17 17:41) Protime With Inr (12/04/17 17:41) Partial Thromboplastin Time (12/04/17 17:41) O2 (12/04/17 17:41) Monitor-Rhythm Ecg Trace Only (12/04/17 17:41) Lipid Panel (12/05/17 06:00) Saline Lock/Iv-Start (12/04/17 17:41) BNP (12/04/17 17:41) Ticagrelor Tablet (Brilinta Tablet) (12/04/17 17:41) Heparin Injection (Heparin Injection) (12/04/17 17:45) Morphine Injection (Morphine Injection (12/04/17 17:45) Medications Given in ED Current Medications Medications Dose Ordered Sig/Daniel Route Start Time Stop Time Status Last Admin Dose Admin Ticagrelor 180 mg 1741 ONCE PO 12/04/17 17:41 12/04/17 17:44 DC 12/04/17 18:03 180 MG Progress Progress Note : Time: 17:52 Progress Note Patient lost consciousness and telemetry strips demonstrate polymorphic V. fib. Initial ECG Impression Date: Dec 04, 2017 Initial ECG Impression Time: 17:38 Initial ECG Rhythm: S.Tach Initial ECG Impression: Acute SC Comment Acute elevation in the inferior leads II, III, and F aVF as well as reciprocal depression in leads V1 and V2 and some mild elevation in the lateral V5 V6 leads. Consistent with STEMI EKG : EKG Time: 17:56 Rate: 75 Rhythm: Normal Sinus Intervals: QT (420) ECG Comparisson: Unchanged ECG Impression: Acute SC Comment Post ventricular fibrillation electrocardioversion times one demonstrating a sinus rhythm with ST elevation in leads 2, 3 aVF, V5, V6 and reciprocal depression in leads V1, V2 same as prior to her V. fib episode. Diagnostic Imaging Diagonstic Imaging: Xray Plain Films/CT/US/NM/MRI: chest Comments [facility] [place] [place] NAME: AGUSTÍN BETANCUR [facility] REC#: [id number] PT STATUS: [facility] [place] 1955 PHYSICIAN: ELIDA SABA MD ADMIT DATE: 12/04/17/CATH Draft Date of Exam:12/04/17 CHEST 1 VIEW, AP/PA ONLY INDICATION: Chest pain. COMPARISON: None. FINDINGS: Single view of the chest demonstrates mild cardiac enlargement. The lungs are clear. There is no pneumothorax. Osseous structures are normal. IMPRESSION: Mild cardiac enlargement without pulmonary edema or infiltrate. Dictated on workstation # [id number] Dict: 12/04/17 1757 Trans: 12/04/17 1759 [id number] Interpreted by: MAGDA CORTES Electronically signed by: Reviewed: Reviewed by Ut Departure Communication (Admissions) Time/Spoke to Admitting Phy: 17:39 Discussed case lab EKG with Dr. Mcclain and that this was a STEMI and he recommended Brilinta 180 mg, heparin 5000 units IV and activate catheter lab and he would come in to perform cardiac catheterization. Impression Primary Impression: ST elevation (STEMI) myocardial infarction involving other coronary artery of inferior wall Disposition: ADMITTED INPATIENT Condition: Critical Admissions Decision to Admit Reason: Admit from ER (General) Decision to Admit/Date: Dec 04, 2017 Time/Decision to Admit Time: 17:40 Departure-Patient Inst. Referrals: MELO ESQUIVEL MD (PCP) Primary Care Physician CEDRIC LAWLER (Family) Primary Care Physician Copy Copies To 1: Nohemy MCCLAIN MD, TITUS J Dec 04, 2017 17:47
--- OUTSIDE RECORDS SUMMARY | 2017-12-04 17:47 | XMS REPORT ---
Author Author CEDRIC LAWLER Organization [facility] Address [address] [place] [address] Care Team Providers Care Immigration Officer Name Role Phone CEDRIC LAWLER Unavailable PROBLEMS Type Condition ICD9-CM Code UHL94-IF Code Onset Dates Condition Status SNOMED Code Problem Nicotine dependence, uncomplicated, unspecified nicotine product type F17.200 Active 51853837 Problem Ab[address] CT lung screening R93.8 Active 799660263 Problem Mild persistent asthma without complication J45.30 Active 454163943 Problem Restless leg syndrome G25.81 Active 60589008 Problem Osteoarthritis of spine with radiculopathy, cervical region M47.22 Active 074566661 Problem RLS (restless legs syndrome) G25.81 Active 23606850 Problem Diabetes mellitus type 2, controlled E11.9 Active 146443584 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 [id number] Problem Hypertension, benign I10 Active 28438561 Problem Essential hypertension I10 Active 68349707 ALLERGIES No Information ENCOUNTERS Encounter Location Date Diagnosis [facility] [address] [address] September, Osteoarthritis of spine with radiculopathy, cervical region M47.22 ; Coughing R05 ; Chronic pruritus L29.9 and Breast cancer screening Z12.31 [facility] [id number] [place] [address] 49601- 6939 September, Diabetes mellitus type 2, controlled E11.9 [facility] [id number] [place] [address] 00606 -8628 Jul, Chronic cough R05 [facility] [id number] [place] [address] 38086- 8612 Jul, [facility] [address] 14945- 8938 Jul, Diabetes mellitus type 2, controlled E11.9 [facility] [address] [address] 8[address] Jul, [facility] [id number] [place] [address] 926835- 1188 Jul, [facility] [id number] [place] [address] 38277- 1628 Jun, [facility] [id number] [place] [address] 679384- 7977 Jun, Diabetes mellitus type 2, controlled E11.9 [facility] [id number] [place] [address] 987257- 4232 Jun, [facility] [id number] [place] [address] 01625- 3519 May, [facility] [id number] [place] [address] 43833- 3055 May, Diabetes mellitus type 2, controlled E11.9 [facility] [address] [address]- 5512 Apr, [facility] [id number] [place] [address] 76015- 4508 Apr, Pneumonia of right upper lobe due to infectious organism J18.1 [facility] [address], [place] [address] 269[address] Mar, [facility] [address] [address]- 3511 Mar, [facility] [id number] [place] [address] 61401- 8873 08 Mar, 2017 [facility] [id number] [place] [address] 75121- 6591 03 Mar, 2017 Coughing R05 and SOB (shortness of breath) R06.02 [facility] [id number] [place] [address] 99974- 6041 Mar, Diabetes mellitus type 2, controlled E11.9 ; Coughing R05 and SOB (shortness of breath) R06.02 [facility] [id number] [place] [address] 57804- 1649 Feb, [facility] [id number] [place] [address] 01904- 0632 Feb, [facility] [address] [address]- 3191 Jan, Hypertension, benign I10 and RLS (restless legs syndrome) G25.81 [facility] [address] 45989- 1035 Jan, [facility] [id number] [place] [address] 48991- 4708 Dec, Pain in unspecified joint M25.50 and Mild persistent asthma without complication J45.30 [facility] [id number] [place] [address] 17030- 6487 Dec, [facility] [id number] [place] [address] 50550- [address] Dec, [address] lung screening R93.8 [facility] [id number] [place] [address] 44661- 2914 Dec, [facility] [id number] [place] [address] 14758- 9658 Nov, Screening for breast cancer Z12.31 [facility] [id number] [place] [address] 87526- 6571 Nov, [facility] [address] 49953- 1599 Nov, Essential hypertension I10 [facility] [id number] [place] [address] 02490- 2680 Nov, Essential hypertension I10 [facility] [address] 46789- 7249 Oct, Acute non-recurrent maxillary sinusitis J01.00 [facility] [address], [place] [address]- 3253 Oct, [facility] [address], [place] [address]- 9696 September, Acute non-recurrent maxillary sinusitis J01.00 [facility] [address], [place] [address] September, Low back pain M54.5 [facility] [id number] [place] [address] 62684- 5925 September, [facility] [id number] [place] [address] 60887- 7029 Aug, Acute non-recurrent maxillary sinusitis J01.00 [facility] [address] [address] Aug, Dental examination Z01.20 [facility] [address], [place] [address]- 6859 Aug, [facility] [id number] [place] [address] 86546- 6929 Aug, [facility] [address], [place] [address]- 7681 Aug, [facility] [id number] [place] [address] 15104- 1725 Aug, Acute sinusitis J01.90 [facility] [address], [place] [address]- 3840 Jul, [facility] [id number] [address]- 7707 Jul, [facility] [address], [place] [address]- 0519 Jul, [facility] [id number] [place] [address] 94649- 5533 Jul, [facility] [id number] [place] [address] 77582- 0241 Jul, Frequent urination R35.0 and Acute cystitis with hematuria N30.01 [facility] [id number] [place] [address] 18396- 7847 Jul, [facility] [address] 60667- 1110 Jun, [facility] [id number] [place] [address] 87709- 0126 Jun, Acute sinusitis J01.90 [facility] [id number] [place] [address] 89654- 0702 Jun, Diabetes mellitus type 2, controlled E11.9 ; Cough R05 ; Acute non-recurrent maxillary sinusitis J01.00 and correction (current) use of opiate analgesic Z79.891 [facility] [id number] [place] [address] 92824- 7447 May, [facility] [id number] [place] [address] 74624- 8967 May, [facility] [id number] [place] [address] 82749- 3131 May, [facility] [id number] [place] [address] 10521- 3981 Apr, [facility] [id number] [place] [address] 92748- 4050 Apr, [facility] [id number] [place] [address] 08684- 8856 Apr, [facility] [id number] [place] [address] 47786 -2337 Apr, Acute non-recurrent maxillary sinusitis J01.00 [facility] [id number] [place] [address] 69298- 0506 Apr, [facility] [id number] [place] [address] 08539- 3964 Feb, [facility] [id number] [place] [address] 34552- 1508 Feb, [facility] [id number] [place] [address] 98383- 1796 Feb, [facility] [id number] [place] [address] 16085- 0357 Feb, [facility] [id number] [place] [address] 48285- 7366 Feb, [facility] [id number] [place] [address] 33265- 3334 Feb, [facility] [id number] [place] [address] 30061- 1782 Jan, RLS (restless legs syndrome) G25.81 ; Osteoarthritis of spine with radiculopathy, cervical region M47.22 ; Lumbar neuritis M54.16 and Left sciatic nerve pain M54.32 [facility] [id number] [place] [address] 37514- 5603 Jan, [facility] [id number] [place] [address] 07697- 3558 Dec, [facility] [id number] [place] [address] 70160- 6673 Nov, [facility] [id number] [place] [address] 55548- 5496 Nov, [facility] [id number] [place] [address] 88130- 3822 Nov, [facility] [id number] [place] [address] 90999- 7140 Nov, Restless leg syndrome G25.81 and Controlled type 2 diabetes mellitus without complication, without long-term current use of insulin E11.9 [facility] [address], [place] [address]- 6446 Nov, [facility] [id number] [place] [address] 53872- 8235 Oct, [facility] [id number] [place] [address] 84401- 7372 Oct, [facility] [id number] [place] [address] 28379- 7588 Oct, [facility] [id number] [place] [address] 88408- 5590 Oct, 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 lung screening R93.8 [facility] [id number] [place] [address] 51090- 7493 Oct, [facility] [id number] [place] [address] 92606- 3799 September, [facility] [id number] [place] [address] 77838- 9612 September, Physical exam, annual Z00.00 ; Nicotine dependence, uncomplicated, unspecified nicotine product type F17.200 ; Screening breast examination Z12.39 ; Restless leg syndrome G25.81 and Mild persistent asthma without complication J45.30 [facility] [address], [place] [address]- 8299 September, [facility] [address] [place] [address] 82767- 6931 September, [facility] [address], [place] [address]- 4771 Aug, [facility] [id number] [place] [address] 46122- 5235 Jul, Dental examination Z01.20 and Dental caries K02.9 [facility] [address], [place] [address]- 3324 Jul, [facility] [address] [place] [address]- 6350 Jul, Diabetes mellitus type 2, controlled E11.9 and Pain in unspecified joint M25.50 [facility] [id number] [place] [address] 02183- 7167 Jul, [facility] [id number] [place] [address] 06970- 0128 Jun, Dental examination Z01.20 [facility] [id number] [place] [address] 35450- 9061 May, [facility] [id number] [place] [address] 20653- 8625 May, [facility] [id number] [place] [address] 89856- 8345 Apr, [facility] [id number] [place] [address] 80882- 7474 Mar, [facility] [id number] [place] [address] 58719- 1516 Mar, Acute sinusitis J01.90 [facility] [id number] [place] [address] 21652- 7692 Feb, [facility] [id number] [place] [address] 19105- 5151 Jan, Flu vaccine need V04.81 [facility] [id number] [place] [address] 53615- 2302 Jan, [facility] [id number] [place] [address] 03380- 1029 Jan, Pain in joint, site unspecified 719.40 [facility] [id number] [place] [address] 43661- 2636 Dec, Pain in joint, site unspecified 719.40 [facility] [id number] [place] [address] 30100- 7367 Dec, [facility] [address], [place] [address]- 1534 Dec, [facility] [id number] [place] [address] 74709- 9196 Dec, Sciatica 724.3 ; Restless legs syndrome [RLS] 333.94 and Encounter for smoking cessation counseling V65.42 [facility] [id number] [place] [address] 01828- 8905 Dec, Nicotine dependence 305.1 [facility] [id number] [place] [address] 833280- 4315 Nov, [facility] [id number] [place] [address] 22502- 7549 Oct, [facility] [id number] [place] [address] 58500- 2321 Oct, [facility] [id number] [place] [address] 70820- 8499 September, [facility] [address], [place] [address]- 4210 Aug, [facility] [id number] [place] [address] 42999- 3223 Aug, [facility] [address], [place] [address]- 9308 Jul, [facility] [address], [place] [address]- 0074 Jul, [facility] [address], [place] [address]- 3556 Jul, [facility] [address], [place] [address]- 4796 Jun, [facility] [address], [place] [address]- 7636 Jun, [facility] [id number] [place] [address] [place] [address]- 7452 Jun, [facility] [address] [id number] [place] [address]- 8754 Jun, [facility] [place] [facility] [address] [id number] [place] [address]- 3341 May, [facility] [place] [facility] [address] [id number] [place] [address]- 2402 May, [facility] [place] [facility] [address] [id number] [place] [address]- 0382 May, [facility] [place] [facility] [address] [id number] [place] [address]- 3906 May, [facility] [place] [facility] [address] [id number] [place] [address]- 8932 May, [facility] [address] [id number] [place] [address]- 6202 May, [facility] [place] [facility] [address] [id number] [place] [address]- 0315 May, [facility] [place] [facility] [address] [id number] [place] [address]- 8153 Apr, [facility] [place] [facility] [address] [id number] [place] [address]- 7424 Apr, [facility] [place] [facility] [address] [id number] [place] [address]- 1401 Apr, [facility] [place] [facility] [address] [id number] [place] [address]- 1024 Apr, [facility] [place] [facility] [address] [id number] [place] [address]- 7972 Apr, [facility] [place] [facility] [address] [id number] [place] [address]- 7133 Apr, [facility] [place] [facility] [address] [id number] [place] [address]- 8978 Apr, [facility] [place] [facility] [address] [id number] [place] [address]- 2252 Apr, [facility] [place] [facility] [address] [id number] [place] [address]- 6812 Apr, [facility] [place] [facility] [address] [id number] [place] [address]- 0934 Apr, [facility] [place] [facility] [address] [id number] [place] [address]- 0999 Mar, [facility] [place] [facility] [address] [id number] [place] [address]- 1014 Mar, [facility] [place] [facility] [address] [id number] [place] [address]- 8234 Mar, [facility] [place] [facility] [address] [id number] [place] [address]- 2309 Mar, [facility] [place] [facility] [address] [id number] [place] [address]- 2134 Mar, [facility] [place] [facility] [address] [id number] [place] [address]- 0195 Mar, [facility] [place] [facility] [address] [id number] [place] [address]- 8725 Feb, [facility] [place] [facility] [address] [id number] [place] [address]- 1061 15 Feb, 2014 [facility] [place] [facility] [address] [id number] [place] [address]- 6562 Feb, [facility] [place] [facility] [address] [id number] [place] [address]- 0632 Feb, [facility] [place] [facility] [address] [id number] [place] [address]- 6609 Feb, [facility] [place] [facility] [address] [id number] [place] [address]- 9364 Feb, [facility] [place] [facility] [address] [id number] [place] [address]- 7926 Jan, [facility] [place] [facility] [address] [id number] [place] [address]- 6835 Jan, [facility] [place] [facility] [address] [id number] [place] [address]- 0951 Jan, [facility] [place] [facility] [address] [id number] [place] [address]- 8876 Jan, [facility] [place] [facility] [address] [id number] [place] [address]- 9321 Dec, [facility] [place] [facility] [address] [id number] [place] [address]- 9278 Dec, [facility] [place] [facility] [address] [id number] [place] [address]- 4918 Dec, [facility] [place] [facility] [address] [id number] [place] [address]- 0175 Dec, [facility] [place] [facility] [address] [id number] [place] [address]- 8864 Dec, [facility] [place] [facility] [address] [id number] [place] [address]- 6894 Nov, [facility] [place] [facility] [address] [id number] [place] [address]- 3422 Nov, [facility] [place] [facility] [address] [id number] [place] [address]- 5674 Nov, [facility] [place] [facility] [address] [id number] [place] [address]- 7989 Nov, [facility] [place] [facility] [address] [id number] [place] [address]- 9042 Nov, [facility] [place] [facility] [address] [id number] [place] [address]- 3642 Nov, [facility] [place] [facility] [address] [id number] [place] [address]- 1862 16 Oct, 2013 [facility] [place] [facility] [address] [id number] [place] [address]- 7223 16 Oct, 2013 [facility] [address] [id number] [place] [address]- 7527 September, [facility] [place] [facility] [address] [id number] [place] [address]- 5351 September, [facility] [address] [id number] [place] [address]- 6923 September, [facility] [place] [facility] [address] [id number] [place] [address]- 2710 September, [facility] [address] [id number] [place] [address]- 4085 Aug, [facility] [place] [facility] [address] [id number] [place] [address]- 2454 Aug, [facility] [place] [facility] [address] [id number] [place] [address]- 6915 Jul, [facility] [place] [facility] [address] [id number] [place] [address]- 4875 17 Jul, 2013 [facility] [place] [facility] [address] [id number] [place] [address]- 9810 Jul, [facility] [address] [id number] [place] [address]- 7640 Jul, [facility] [place] [facility] [address] [id number] [place] [address]- 4468 Jun, [facility] [place] [facility] [address] [id number] [place] [address]- 4375 Jun, [facility] [place] [facility] [address] [id number] [place] [address]- 6435 Jun, [facility] [place] [facility] [address] [id number] [place] [address]- 8716 Jun, [facility] [place] [facility] [address] [id number] [place] [address]- 8134 May, [facility] [place] [facility] [address] [id number] [place] [address]- 3029 May, [facility] [place] [facility] [address] [id number] [place] [address]- 1100 May, [facility] [place] [facility] [address] [id number] [place] [address]- 2435 May, [facility] [place] [facility] [address] [id number] [place] [address]- 5645 Apr, [facility] [place] [facility] [address] [id number] [place] [address]- 9261 Apr, [facility] [place] [facility] [address] [id number] [place] [address]- 5910 Apr, [facility] [place] [facility] [address] [id number] [place] [address]- 6308 Mar, [facility] [place] [facility] [address] [id number], [place] [address]- 2571 Mar, [facility] [place] [facility] [address] [id number] [place] [address]- 2409 Mar, [facility] [place] [facility] [address] [id number], [place] [address]- 9261 Mar, [facility] [place] [facility] [address] [id number], [place] [address]- 1978 Feb, [facility] [place] [facility] [address] [id number], [place] [address] Feb, [facility] [place] [facility] [address] [id number] [place] [address] Feb, [facility] [place] [facility] [address] [id number], [place] [address] Feb, [facility] [place] [facility] [address] [id number], [place] [address] 17 Feb, 2013 [facility] [place] [facility] [address] [id number] [place] [address] 17 Feb, 2013 [facility] [address] [id number] [place] [address] Feb, [facility] [place] [facility] [address] [id number] [place] [address] Feb, [facility] [place] [facility] [address] [id number] [place] [address] Jan, [facility] [place] [facility] [address] [id number] [place] [address] Jan, [facility] [place] [facility] [address] [id number] [place] [address] Jan, [facility] [place] [facility] [address] [id number] [place] [address] Dec, [facility] [place] [facility] [address] [id number] [place] [address] Dec, [facility] [place] [facility] [address] [id number] [place] [address] Nov, [facility] [place] [facility] [address] [id number] [place] [address] Nov, [facility] [place] [facility] [address] [id number] [place] [address] Nov, [facility] [place] [facility] [address] [id number] [place] [address] Nov, [facility] [place] [facility] [address] [id number] [place] [address] Oct, [facility] [place] [facility] [address] [id number] [place] [address] Oct, [facility] [place] [facility] [address] [id number] [place] [address] Oct, [facility] [place] [facility] [address] [id number] [place] [address] September, [facility] [place] [facility] [address] [id number] [place] [address] September, [facility] [address] [id number] [place] [address] September, [facility] [address] [id number] [place] [address] September, [facility] [address] [id number] [place] [address] Aug, [facility] [address] [id number] [place] [address] Aug, [facility] [address] [id number] [place] [address] Jul, [facility] [address] [id number] [place] [address] Jul, [facility] [address] [id number] [place] [address] Jul, [facility] [address] [id number] [place] [address] Jul, [facility] [address] [id number] [place] [address] Jul, [facility] [address] [id number] [place] [address] Jun, [facility] [address] [id number] [place] [address] Jun, [facility] [place] [facility] [address] [id number] [place] [address] Jun, [facility] [place] [facility] [address] [id number] [place] [address] May, [facility] [place] [facility] [address] [id number] [place] [address] May, [facility] [address] [id number] [address] May, [facility] [place] [facility] [address] [id number] [place] [address] Apr, [facility] [place] [facility] [address] [id number] [place] [address] Apr, [facility] [place] [facility] [address] [id number] [place] [address] Apr, [facility] [place] [facility] [address] [id number] [place] [address] Apr, [facility] [place] [facility] [address] [id number] [place] [address] Apr, [facility] [place] [facility] [address] [id number] [place] [address] Apr, [facility] [place] [facility] [address] [id number] [place] [address] Apr, [facility] [place] [facility] [address] [id number] [place] [address] Apr, [facility] [place] [facility] [address] [id number] [place] [address] Mar, [facility] [place] [facility] [address] [id number] [place] [address] Mar, [facility] [place] [facility] [address] [id number] [place] [address] Mar, [facility] [place] [facility] [address] [id number] [place] [address] Mar, [facility] [place] [facility] [address] [id number] [place] [address] Mar, [facility] [place] [facility] [address] [id number] [place] [address]- [address] Mar, [facility] [place] [facility] [address] [id number] [place] [address] Mar, [facility] [place] [facility] [address] [id number] [place] [address] 69[address] Mar, [facility] [place] [facility] [address] [id number] [place] [address] Mar, [facility] [place] [facility] [address] [id number] [place] [address] 2546 Mar, [facility] [place] [facility] [address] [id number] [place] [address] Feb, [facility] [place] [facility] [address] [id number] [place] [address] Feb, [facility] [place] [facility] [address] [id number] [place] [address] 269[address] Feb, [facility] [place] [facility] [address] [id number] [place] [address]- [address] Jan, [facility] [place] [facility] [address] [id number] [place] [address] Jan, [facility] [place] [facility] [address] [id number] [place] [address] Jan, [facility] [place] [facility] [address] [id number] [place] [address] Dec, [facility] [place] [facility] [address] [id number] [place] [address]- [address] 15 Dec, 2011 [facility] [place] [facility] [address] [id number] [place] [address] Dec, [facility] [place] [facility] [address] [id number] [place] [address] 8533 Dec, [facility] [place] [facility] [address] [id number] [place] [address] Dec, [facility] [place] [facility] [address] [id number] [place] [address] Nov, [facility] [place] [facility] [address] [id number] [place] [address] Nov, [facility] [address] [id number] [place] [address] Oct, [facility] [place] [facility] [address] [id number] [place] [address]148 September, [facility] [place] [facility] [address] [id number] [place] [address]- [address] September, [facility] [place] [facility] [address] [id number] [place] [address]- [address] September, [facility] [place] [facility] [address] [id number] [place] [address]- [address] September, [facility] [place] [facility] [address] [id number] [place] [address]- [address] September, [facility] [place] [facility] [address] [id number] [place] [address] Aug, [facility] [place] [facility] [address] [id number] [place] [address]- [address] 16 Jul, 2011 [facility] [place] [facility] [address] [id number] [place] [address]- [address] 15 Jul, 2011 [facility] [place] [facility] [address] [id number] [place] [address]- [address] 14 Jul, 2011 [facility] [place] [facility] [address] [id number] [place] [address] 14 Jul, 2011 [facility] [place] [facility] [address] [id number], [place] [address] Jul, [facility] [place] [facility] [address] [id number] [place] [address]- [address]697 Jul, [facility] [place] [facility] [address] [id number] [place] [address]- [address] 08 Jul, 2011 [facility] [place] [facility] [address] [id number] [place] [address]- [address]73 05 Jul, 2011 [facility] [place] [facility] [address] [id number] [place] [address] 27 Jun, 2011 [facility] [place] [facility] [address] [id number] [place] [address]- [address]774 16 Jun, 2011 [facility] [place] [facility] [address] [id number] [place] [address]- [address]256 10 Jun, 2011 [facility] [place] [facility] [address] [id number] [place] [address]- [address]690 May, [facility] [place] [facility] [address] [id number] [place] [address]- [address] Apr, [facility] [place] [facility] [address] [id number] [place] [address]- 69[address] Apr, [facility] [place] [facility] [address] [id number] [place] [address] 59[address] Mar, [facility] [place] [facility] [address] [id number] [place] [address] 7209 Mar, [facility] [place] [facility] [address] [id number] [place] [address] Mar, [facility] [place] [facility] [address] [id number] [place] [address]- 5810 Feb, [facility] [place] [facility] [address] [id number] [place] [address]- [address]39 Feb, [facility] [place] [facility] [address] [id number] [place] [address] 9799 Feb, [facility] [place] [facility] [address] [id number] [place] [address]- 59[address] Apr, [facility] [place] [facility] [address] [id number] [place] [address]- 5416 Apr, [facility] [place] [facility] [address] [id number] [place] [address]- [address]676 Mar, [facility] [place] [facility] [address] [id number] [place] [address]- 5524 Mar, [facility] [place] [facility] [address] [id number] [place] [address]- 1056 Mar, [facility] [place] [facility] [address] [id number] [place] [address]- 3035 Mar, [facility] [address] [id number] [place] [address]- 2667 Mar, [facility] [place] [facility] [address] [id number] [place] [address]- 7671 Feb, [facility] [address] [id number] [place] [address]- 9185 September, [facility] [address] [id number] [place] [address]- [address]677 Aug, [facility] [address] [id number] [place] [address]- 3294 Apr, [facility] [address] [id number], [place] [address]- [address] 15 Apr, 2009 [facility] [address] [id number] [place] [address]- 7278 Mar, [facility] [place] [facility] [address] [id number], [place] [address]- 7784 Mar, [facility] [place] [facility] [address] [id number] [place] [address]- 7537 Mar, [facility] [place] [facility] [address] [id number], [place] [address]- 7090 Feb, [facility] [place] [facility] [address] [id number], [place] [address]- 6517 Jan, [facility] [place] [facility] [address] [id number], [place] [address]- 4[address] Dec, [facility] [place] [facility] [address] [id number], [place] [address]- [address]272 15 Nov, 2008 [facility] [place] [facility] [address] [id number], [place] [address]- [address] Oct, [facility] [address] [facility] [id number] [place] [address]- [address]46 Apr, [facility] [address] [facility] [id number], [place] [address]- 25[address] Apr, [facility] [address] [facility] [id number], [place] [address]- [address]46 Apr, [facility] [address] [facility] [id number], [place] [address]- [address] Feb, IMMUNIZATIONS No Known Immunizations SOCIAL HISTORY Never Assessed REASON FOR VISIT PLAN OF CARE VITAL SIGNS MEDICATIONS Medication Instructions Dosage Frequency Start Date End Date Duration Status Amoxicillin 500 mg Orally 3 times a day 1 capsule 8h Mar, Mar, 10 day(s) Active RESULTS No Results PROCEDURES [...]
--- OUTSIDE RECORDS SUMMARY | 2017-12-04 17:47 | XMS REPORT ---
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
[2017-12-04 17:48] LABS: BASOPHILS % (AUTO) 1 % (0-10); EOSINOPHILS # (AUTO) 0.2 10^3/uL (0.0-0.3); EOSINOPHILS % (AUTO) 3 % (0-10); HEMATOCRIT 46 % (35-52); HEMOGLOBIN 15.2 G/DL (11.5-16.0); LYMPHOCYTES # (AUTO) 3.4 X 10^3 (1.0-4.0); LYMPHOCYTES % (AUTO) 44 % (12-44); MEAN CORPUSCULAR HEMOGLOBIN 30 PG (25-34); MEAN CORPUSCULAR HGB CONC 33 G/DL (32-36); MEAN CORPUSCULAR VOLUME 90 FL (80-99); MEAN PLATELET VOLUME 10.3 FL (7.4-10.4); MONOCYTES # (AUTO) 0.7 X 10^3 (0.0-1.0); MONOCYTES % (AUTO) 9 % (0-12); NEUTROPHILS # (AUTO) 3.4 X 10^3 (1.8-7.8); NEUTROPHILS % (AUTO) 44 % (42-75); PLATELET COUNT 142 10^3/uL (130-400); RED BLOOD COUNT 5.04 10^6/uL (4.35-5.85); WHITE BLOOD COUNT 7.7 10^3/uL (4.3-11.0)
--- OUTSIDE RECORDS SUMMARY | 2017-12-04 17:48 | XMS REPORT ---
Author Author CEDRIC LAWLER Organization [facility] Address [address] [place] [address] Care Team Providers Care Asset Accountant Name Role Phone CEDRIC LAWLER Unavailable PROBLEMS Type Condition ICD9-CM Code GDN87-OZ Code Onset Dates Condition Status SNOMED Code Problem Nicotine dependence, uncomplicated, unspecified nicotine product type F17.200 Active 61344778 Problem Abnormal CT lung screening R93.8 Active 659631034 Problem Mild persistent asthma without complication J45.30 Active 772041668 Problem Restless leg syndrome G25.81 Active 77539691 Problem Osteoarthritis of spine with radiculopathy, cervical region M47.22 Active 036967971 Problem RLS (restless legs syndrome) G25.81 Active 80066981 Problem Diabetes mellitus type 2, controlled E11.9 Active 517327872 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 481505302801431 Problem Hypertension, benign I10 Active 19261485 Problem Essential hypertension I10 Active 96685492 ALLERGIES No Information ENCOUNTERS Encounter Location Date Diagnosis [place] [id number] [place] [address] 97590- 0503 Oct, [place] [address] [place] [id number] [place] [address] 87450- 2307 Oct, [place] [address] [place] [address] [id number] [place] [address] 68485- 2890 Oct, Skin tags, multiple acquired L91.8 [place] [address] [place] [address] [id number] [place] [address] 16349- 4261 Oct, [place] [address] [address] [id number] [place] [address] 10915- 7031 Oct, Diabetes mellitus type 2, controlled E11.9 and Osteoarthritis of spine with radiculopathy, cervical region M47.22 [place] [id number] [address] [address] September, Osteoarthritis of spine with radiculopathy, cervical region M47.22 ; Coughing R05 ; Chronic pruritus L29.9 and Breast cancer screening Z12.31 [facility] [address] [address] September, Diabetes mellitus type 2, controlled E11.9 [facility] [address], [place] [address] Jul, Chronic cough R05 [facility] [address] [place] [address] [id number] [place] [address], [place] [address]- 7137 Jul, [facility] [id number] [place] [address] 69046- 5540 Jul, Diabetes mellitus type 2, controlled E11.9 [facility] [address], [place] [address]- 3511 Jul, [facility] [address] [address]- 8952 Jul, [facility] [address] [address]- 7351 Jun, [facility] [address], [place] [address]- 9078 Jun, Diabetes mellitus type 2, controlled E11.9 [facility] [address], [place] [address]- 1759 Jun, [facility] [address] [address] May, [facility] [id number] 9476 May, Diabetes mellitus type 2, controlled E11.9 [facility] [address] 4986 Apr, [facility] [address] [id number] [place] [address] 99377- 4963 Apr, Pneumonia of right upper lobe due to infectious organism J18.1 [place] [address] 67686- 3638 Mar, [place] [address] 35190- 1988 Mar, [place] [address] 73442- 7031 Mar, [place] [address] 63605- 0202 03 Mar, 2017 Coughing R05 and SOB (shortness of breath) R06.02 [place] [address] 47173- 6808 Mar, Diabetes mellitus type 2, controlled E11.9 ; Coughing R05 and SOB (shortness of breath) R06.02 [place] [address] 19223- 2132 Feb, [place] [address] 85800- 2836 Feb, [place] [address] 08017- 9035 Jan, Hypertension, benign I10 and RLS (restless legs syndrome) G25.81 [place] [address] 41672- 9866 Jan, [place] [address] 07963- 4548 Dec, Pain in unspecified joint M25.50 and Mild persistent asthma without complication J45.30 [place] [address] 03837- 2571 Dec, [place] [address] 56218- [address] Dec, [address] lung screening R93.8 [facility] [address], [place] [address]- 3301 Dec, [facility] [address] [id number] [place] [address] 77704- 6229 Nov, Screening for breast cancer Z12.31 [facility] [address] [id number] [place] [address] 48286- 2248 Nov, [facility] [id number] [place] [address] 85160- 8212 Nov, Essential hypertension I10 [facility] [address] [id number] [place] [address] 72244- 2978 Nov, Essential hypertension I10 [facility] [address] [id number] [place] [address] 90438- 0277 Oct, Acute non-recurrent maxillary sinusitis J01.00 [facility] [address] [id number] [place] [address] 62182- 3046 Oct, [facility] [address] [place] [address] [id number] [place] [address] 60349- 3499 September, Acute non-recurrent maxillary sinusitis J01.00 [facility] [id number] [place] [address] 73134 -3802 September, Low back pain M54.5 [facility] [address] [place] [address] 29036- 0858 September, [facility] [address] [place] [address] 08947- 1284 Aug, Acute non-recurrent maxillary sinusitis J01.00 [facility] [address] [address] Aug, Dental examination Z01.20 [facility] [address] [place] [address] 21672- 8261 Aug, [facility] [address] [place] [address] [id number] [place] [address] 73879- 3907 Aug, [facility] [address], [place] [address]- 1896 Aug, [facility] [address] [place] [address] [id number] [place] [address] 42375- 6165 Aug, Acute sinusitis J01.90 [facility] [address] [place] [address] [id number] [place] [address] 74929- 6311 Jul, [facility] [address] [place] [address] [id number] [place] [address] 49016- 5170 Jul, [facility] [address] [place] [id number] [place] [address] 28375- 1678 Jul, [facility] [address] [place] [id number] [place] [address] 21806- 1708 Jul, [facility] [address] [place] [id number] [place] [address] 72783- 1556 Jul, Frequent urination R35.0 and Acute cystitis with hematuria N30.01 [facility] [address] [place] [address] 40712- 1206 Jul, [facility] [address] [place] [address] [id number] [place] [address] 04626- 5103 Jun, [facility] [address] [place] [address] [id number] [place] [address] 99414- 9865 Jun, Acute sinusitis J01.90 [facility] [address] [place] [address] [id number] [place] [address] 46948- 2263 Jun, Diabetes mellitus type 2, controlled E11.9 ; Cough R05 ; Acute non-recurrent maxillary sinusitis J01.00 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 [facility] [address], [place] [address]- 1584 May, [facility] [address] [place] [address] [id number] [place] [address] 56464- 8992 May, [facility] [address], [place] [address]- 3619 May, [facility] [address] [place] [address] [id number] [place] [address] 20738- 3692 Apr, [facility] [id number], [place] [address]- 4779 Apr, [facility] [address] [place] [address] [id number] [place] [address] 46400- 7300 Apr, [facility] [address], [place] [address] -4664 Apr, Acute non-recurrent maxillary sinusitis J01.00 [facility] [address] [place] [address] [id number] [place] [address] 13748- 9170 Apr, [facility] [address] [place] [id number] [place] [address] 27374- 1855 Feb, [facility] [address] [place] [id number] [place] [address] 27716- 6443 Feb, [facility] [address] [place] [address] [id number] [place] [address] 87689- 1527 Feb, [facility] [address] [place] [id number] [place] [address] 17600- 3982 Feb, [facility] [id number] [place] [address] 14919- 1893 Feb, [facility] [address] [place] [id number] [place] [address] 99729- 7736 Feb, [facility] [address] [place] [address] [id number] [place] [address] 99959- 0154 Jan, RLS (restless legs syndrome) G25.81 ; Osteoarthritis of spine with radiculopathy, cervical region M47.22 ; Lumbar neuritis M54.16 and Left sciatic nerve pain M54.32 [facility] [address] [place] [address] [id number] [place] [address] 89759- 7670 Jan, [facility] [address], [place] [address]- 9928 Dec, [facility] [address], [place] [address]- 3054 Nov, [facility] [address], [place] [address]- 5100 Nov, [facility] [address] [place] [address] [id number] [place] [address] 37170- 7583 Nov, [facility] [address], [place] [address]- 0852 Nov, Restless leg syndrome G25.81 and Controlled type 2 diabetes mellitus without complication, without long-term current use of insulin E11.9 [place] [address], [place] [address]- 1299 Nov, [facility] [address] [place] [address] 92820- 7171 Oct, [facility] [address], [place] [address]- 3978 Oct, [facility] [address], [place] [address]- 5648 Oct, [facility] [address], [place] [address]- 5746 Oct, 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 lung screening R93.8 [facility] [address], [place] [address]- 1018 Oct, [facility] [address], [place] [address]- 6231 September, [facility] [address], [place] [address]- 3457 September, Physical exam, annual Z00.00 ; Nicotine dependence, uncomplicated, unspecified nicotine product type F17.200 ; Screening breast examination Z12.39 ; Restless leg syndrome G25.81 and Mild persistent asthma without complication J45.30 [facility] [address] [place] [id number] [place] [address] 35360- 3132 September, [facility] [address] [place] [id number] [place] [address] 33585- 8966 September, [facility] [address] [id number] [place] [address] 98770- 4330 Aug, [facility] [address] [place] [id number] [place] [address] 78064- 8080 09 Jul, 2015 Dental examination Z01.20 and Dental caries K02.9 [place] [address] 92306- 8297 Jul, [facility] [address] [place] [id number] [place] [address] 98620- 5074 Jul, Diabetes mellitus type 2, controlled E11.9 and Pain in unspecified joint M25.50 [facility] [address] [place] [id number] [place] [address] 33132- 2225 Jul, [facility] [address] [place] [id number] [place] [address] 98485- 6923 Jun, Dental examination Z01.20 [facility] [address] [place] [address] [id number] [place] [address] 41895- 2600 May, [facility] [address] [place] [id number] [place] [address] 78973- 1123 May, [facility] [address] [place] [id number] [place] [address] 70928- 1067 Apr, [facility] [address] [place] [id number] [place] [address] 00477- 1403 Mar, [facility] [address] [place] [id number] [place] [address] 65306- 4111 Mar, Acute sinusitis J01.90 [facility] [address] [place] [id number] [place] [address] 16900- 6902 Feb, [facility] [address], [place] [address]- 8058 Jan, Flu vaccine need V04.81 [facility] [address] [place] [id number] [place] [address] 94570- 5850 Jan, [facility] [address] [place] [id number] [place] [address] 84724- 0838 Jan, Pain in joint, site unspecified 719.40 [facility] [address] [place] [id number] [place] [address] 34172- 9660 Dec, Pain in joint, site unspecified 719.40 [facility] [address] 96597- 8208 Dec, [facility] [address] [place] [id number] [place] [address] 94074- 4604 Dec, [facility] [address] [place] [id number] [place] [address] 85761- 5816 Dec, Sciatica 724.3 ; Restless legs syndrome [RLS] 333.94 and Encounter for smoking cessation counseling V65.42 [facility] [address] [place] [address] [id number] [place] [address] 26153- 7985 Dec, Nicotine dependence 305.1 [facility] [address] [place] [id number] [place] [address] 07800- 7477 Nov, [facility] [address] [place] [id number] [place] [address] 75750- 7535 Oct, [facility] [address] [place] [id number] [place] [address] 57944- 3607 Oct, [facility] [address] [place] [id number] [place] [address] 26237- 9520 September, [facility] [id number] [place] [address] 77598- 0191 Aug, [facility] [address] [place] [address]- 1528 Aug, [facility] [place] [facility] [address] [id number] [place] [address]- 3966 Jul, [facility] [place] [facility] [address] [id number] [place] [address]- 7472 Jul, [facility] [place] [facility] [address] [id number] [place] [address]- 0695 Jul, [facility] [place] [facility] [address] [id number] [place] [address]- 1118 Jun, [facility] [place] [facility] [address] [id number] [place] [address]- 7391 Jun, [facility] [place] [facility] [address] [id number] [place] [address]- 8731 Jun, [facility] [place] [facility] [address] [id number] [place] [address]- 8675 Jun, [facility] [place] [facility] [address] [id number] [place] [address]- 7715 May, [facility] [place] [facility] [address] [id number] [place] [address]- 0518 May, [facility] [place] [facility] [address] [id number] [place] [address]- 6225 May, [facility] [place] [facility] [address] [id number] [place] [address]- 4593 May, [facility] [place] [facility] [address] [id number] [place] [address]- 5438 May, [facility] [place] [facility] [address] [id number] [place] [address]- 8136 May, [facility] [place] [facility] [address] [id number] [place] [address]- 0896 May, [facility] [place] [facility] [address] [id number] [place] [address]- 0378 Apr, [facility] [place] [facility] [address] [id number] [place] 5418 Apr, [facility] [place] [facility] [address] [id number] [place] [address]- 0003 Apr, [facility] [place] [facility] [address] [id number] [place] 9396 Apr, [facility] [place] [facility] [address] [id number] [place] [address]- 2930 Apr, [facility] [place] [facility] [address] [id number] [place] 7787 Apr, [facility] [place] [facility] [address] [id number] [place]- 1685 Apr, [facility] [place] [facility] [address] [id number] [place] [address]- 7621 Apr, [facility] [place] [facility] [address] [id number] [place] [address]- 6607 Apr, [facility] [place] [facility] [address] [id number] [place] [address]- 9373 Apr, [facility] [place] [facility] [address] [id number] [place] [address]- 4640 Mar, [facility] [place] [facility] [address] [id number] [place] [address]- 3677 Mar, [facility] [place] [facility] [address] [id number] [place] [address]- 0018 Mar, [facility] [place] [facility] [address] [id number] [place] [address]- 8035 Mar, [facility] [place] [facility] [address] [id number] [place] [address]- 9878 Mar, [facility] [place] [facility] [address] [id number] [place] [address]- 4561 Mar, [facility] [place] [facility] [address] [id number] [place] [address]- 1733 15 Feb, 2014 [facility] [place] [facility] [address] [id number] [place] [address]- 1248 15 Feb, 2014 [facility] [place] [facility] [address] [id number] [place] [address]- 0944 Feb, [facility] [place] [facility] [address] [id number] [place] [address]- 3665 Feb, [facility] [place] [facility] [address] [id number] [place] [address]- 4848 Feb, [facility] [place] [facility] [address] [id number] [place] [address]- 4338 Feb, [facility] [place] [facility] [address] [id number] [place] [address]- 5777 Jan, [facility] [place] [facility] [address] [id number] [place] [address]- 1666 Jan, [facility] [place] [facility] [address] [id number] [place] [address]- 0242 Jan, [facility] [place] [facility] [address] [id number] [place] [address]- 4916 Jan, [facility] [place] [facility] [address] [id number] [place] [address]- 6938 Dec, [facility] [place] [facility] [address] [id number] [place] [address]- 3463 Dec, [facility] [place] [facility] [address] [id number] [place] [address]- 1758 Dec, [facility] [place] [facility] [address] [id number] [place] [address]- 7938 Dec, [facility] [place] [facility] [address] [id number] [place] [address]- 0957 Dec, [facility] [place] [facility] [address] [id number] [place] [address]- 2983 16 Nov, 2013 [facility] [place] [facility] [address] [id number] [place] [address]- 7961 16 Nov, 2013 [facility] [place] [facility] [address] [id number] [place] [address]- 3066 15 Nov, 2013 [facility] [place] [facility] [address] [id number] [place] [address]- 1845 15 Nov, 2013 [facility] [place] [facility] [address] [id number] [place] [address]- 7320 15 Nov, 2013 [facility] [place] [facility] [address] [id number] [place] [address]- 8034 15 Nov, 2013 [facility] [place] [facility] [address] [id number] [place] [address]- 9410 16 Oct, 2013 [facility] [place] [facility] [address] [id number] [place] [address]- 9481 16 Oct, 2013 [facility] [place] [facility] [address] [id number] [place] [address]- 3360 16 Sep, 2013 [facility] [place] [facility] [address] [id number] [place] [address]- 3936 16 Sep, 2013 [facility] [place] [facility] [address] [id number] [place] [address]- 3388 14 Sep, 2013 [facility] [place] [facility] [address] [id number] [place] [address]- 0233 14 Sep, 2013 [facility] [place] [facility] [address] [id number] [place] [address]- 9497 14 Aug, 2013 [facility] [place] [facility] [address] [id number] [place] [address]- 1312 14 Aug, 2013 [facility] [place] [facility] [address] [id number] [place] [address]- 1155 17 Jul, 2013 [facility] [place] [facility] [address] [id number] [place] [address]- 9236 17 Jul, 2013 [facility] [place] [facility] [address] [id number] [place] [address]- 8454 14 Jul, 2013 [facility] [place] [facility] [address] [id number] [place] [address]- 8878 14 Jul, 2013 [facility] [place] [facility] [address] [id number] [place] [address]- 6473 Jun, [facility] [place] [facility] [address] [id number] [place] [address]- 8375 Jun, [facility] [place] [facility] [address] [id number] [place] [address]- 1283 Jun, [facility] [place] [facility] [address] [id number] [place] [address]- 6725 Jun, [facility] [place] [facility] [address] [id number] [place] [address]- 6372 May, [facility] [place] [facility] [address] [id number] [place] [address]- 7361 May, [facility] [place] [facility] [address] [id number] [place] [address]- 9119 May, [facility] [place] [facility] [address] [id number] [place] [address]- 4347 May, [facility] [place] [facility] [address] [id number] [place] [address]- 7988 Apr, [facility] [place] [facility] [address] [id number] [place] [address]- 7992 Apr, [facility] [place] [facility] [address] [id number] [place] [address]- 4101 Apr, [facility] [place] [facility] [address] [id number] [place] [address]- 2257 Mar, [facility] [place] [facility] [address] [id number] [place] [address]- 5420 Mar, [facility] [place] [facility] [address] [id number] [place] [address]- 8027 Mar, [facility] [place] [facility] [address] [id number] [place] [address] Mar, [facility] [address] [id number] [place] [address] Feb, 2012 [facility] [place] [facility] [address] [id number] [id number] [address] Feb, [facility] [address] [id number] [place] [address] Feb, [facility] [place] [facility] [address] [id number] [place] [address] Feb, [facility] [address] [id number] [place] [address] Feb, [facility] [place] [facility] [address] [id number] [place] [address] Feb, [facility] [address] [id number] [place] [address] Feb, [facility] [address] [id number] [place] [address] Feb, [facility] [place] [facility] [address] [id number] [place] [address] Jan, [facility] [place] [facility] [address] [id number] [place] [address] Jan, [facility] [place] [facility] [address] [id number] [place] [address] Jan, [facility] [place] [facility] [address] [id number] [place] [address] Dec, [facility] [place] [facility] [address] [id number] [place] [address] Dec, [facility] [place] [facility] [address] [id number] [place] [address] Nov, [facility] [place] [facility] [address] [id number] [place] [address] Nov, [facility] [place] [facility] [address] [id number] [place] [address] Nov, [facility] [address] [id number] [place] [address] Nov, [facility] [address] [id number] [place] [address] Oct, [facility] [place] [facility] [address] [id number] [place] [address] Oct, [facility] [address] [id number] [place] [address] Oct, [facility] [address] [id number] [place] [address] September, [facility] [address] [id number] [place] [address] September, [facility] [address] [id number] [place] [address] September, [facility] [address] [id number] [place] [address] September, [facility] [address] [id number] [place] [address] Aug, [facility] [address] [id number] [place] [address] Aug, [facility] [place] [facility] [address] [id number], [place] [address] Jul, [facility] [place] [facility] [address] [id number] [place] [address] Jul, [facility] [place] [facility] [address] [id number] [place] [address] Jul, [facility] [place] [facility] [address] [id number] [place] [address] Jul, [facility] [place] [facility] [address] [id number], [place] [address] Jul, [facility] [address] [id number] [place] [address] Jun, [facility] [address] [id number] [place] [address] Jun, [facility] [address] [id number] [place] [address] Jun, [facility] [address] [id number] [place] [address] May, [facility] [address] [id number] [place] [address] May, [facility] [address] [id number] [place] [address] May, [facility] [address] [id number] [place] [address] Apr, [facility] [address] [id number] [place] [address] Apr, [facility] [address] [id number] [place] [address] Apr, [facility] [address] [facility] [id number] [place] [address] Apr, [facility] [address] [id number] [place] [address] 39[address] Apr, [facility] [address] [id number] [place] [address] Apr, [facility] [address] [id number] [place] [address] Apr, [facility] [address] [id number] [place] [address] 39[address] Apr, [facility] [address] [facility] [id number] [place] [address] Mar, [facility] [place] [facility] [address] [id number] [place] [address] Mar, [facility] [place] [facility] [address] [id number] [place] [address] Mar, [facility] [place] [facility] [address] [id number] [place] [address] Mar, [facility] [place] [facility] [address] [id number] [place] [address] Mar, [facility] [place] [facility] [address] [id number] [place] [address] Mar, [facility] [place] [facility] [address] [id number] [place] [address] 1787 Mar, [facility] [place] [facility] [address] [id number] [place] [address] 88[address] Mar, [facility] [place] [facility] [address] [id number] [place] [address] 9539 Mar, [facility] [place] [facility] [address] [id number] [place] [address] 64[address] Mar, [facility] [place] [facility] [address] [id number] [place] [address] Feb, [facility] [place] [facility] [address] [id number] [place] [address] Feb, [facility] [place] [facility] [address] [id number] [place] [address] 6394 Feb, [facility] [place] [facility] [address] [id number] [place] [address] 11 Jan, 2012 [facility] [place] [facility] [address] [id number] [place] [address] 07 Jan, 2012 [facility] [place] [facility] [address] [id number] [place] 07 Jan, 2012 [facility] [place] [facility] [address] [id number] [place] [address] Dec, [facility] [place] [facility] [address] [id number] [place] [address] Dec, [facility] [place] [facility] [address] [id number] [place] [address] Dec, [facility] [place] [facility] [address] [id number] [place] [address] 2546 Dec, [facility] [place] [facility] [address] [id number] [place] [address] Dec, [facility] [place] [facility] [address] [id number] [place] [address] Nov, [facility] [place] [facility] [address] [id number] [place] [address] 2966 Nov, [facility] [place] [facility] [address] [id number] [place] [address]646 Oct, [facility] [place] [facility] [address] [id number] [place] [address] September, [facility] [place] [facility] [address] [id number] [place] [address] 96[address] September, [facility] [place] [facility] [address] [id number] [place] [address]186 September, [facility] [place] [facility] [address] [id number] [place] [address]246 September, [facility] [place] [facility] [address] [id number] [place] [address] 2546 September, [facility] [place] [facility] [address] [id number] [place] [address] Aug, [facility] [place] [facility] [address] [id number] [place] [address]- [address]46 16 Jul, 2011 [facility] [place] [facility] [address] [id number] [place] [address]- 2546 Jul, [facility] [place] [facility] [address] [id number] [place] [address] 9448 14 Jul, 2011 [facility] [address] [id number] [place] [address]- 6[address] 14 Jul, 2011 [facility] [place] [facility] [address] [id number] [place] [address] 2546 09 Jul, 2011 [facility] [address] [id number] [place] [address]647 09 Jul, 2011 [facility] [place] [facility] [address] [id number] [place] [address] 2549 08 Jul, 2011 [facility] [address] [id number] [place] [address]- [address] Jul, [facility] [place] [facility] [address] [id number] [place] [address]36 27 Jun, 2011 [facility] [place] [facility] [address] [facility] [id number] [place] [address]- 2081 16 Jun, 2011 [facility] [place] [facility] [address] [facility] [id number] [place] [address] 9482 Jun, [facility] [place] [facility] [address] [facility] [id number] [place] [address] 5828 May, [facility] [address] [facility] [id number] [place] [address] Apr, [facility] [place] [facility] [address] [id number] [place] [address] 8516 Apr, [facility] [place] [facility] [address] [id number] [place] [address] 2546 Mar, [facility] [place] [facility] [address] [id number] [place] [address] 6116 Mar, [facility] [place] [facility] [address] [facility] [id number] [place] [address] 2546 Mar, [facility] [place] [facility] [address] [facility] [id number] [place] [address] Feb, [facility] [place] [facility] [address] [id number] [place] [address] 2967 Feb, [facility] [place] [facility] [address] [id number] [place] [address] 6472 Feb, [facility] [place] [facility] [address] [id number] [place] [address] 1358 Apr, [facility] [place] [facility] [address] [id number] [place] [address] 0988 Apr, [facility] [place] [facility] [address] [id number] [place] [address]- 5581 Mar, [facility] [place] [facility] [address] [id number] [place] [address]- 2787 Mar, [facility] [place] [facility] [address] [id number] [place] [address] 1624 Mar, [facility] [place] [facility] [address] [id number], [place] [address] 9[address] Mar, [facility] [place] [facility] [address] [id number] [place] [address]- 6019 Mar, [facility] [place] [facility] [address] [id number], [place] [address] 7380 Feb, [facility] [place] [facility] [address] [id number], [place] [address]- 7034 September, [facility] [place] [facility] [address] [id number], [place] [address]- 2449 Aug, [facility] [place] [facility] [address] [id number], [place] [address]- 2754 Apr, [facility] [place] [facility] [address] [id number], [place] [address]- 1379 15 Apr, 2009 [facility] [place] [facility] [address] [id number], [place] [address]- 5164 18 Mar, 2009 [facility] [place] [facility] [address] [id number], [place] [address] 30[address] Mar, [facility] [id number], [place] [address] Mar, [facility] [id number] [place] [address]- 2376 Feb, [facility] [id number] [place] [address]- 0416 Jan, [facility] [id number] [place] [address] 61508- 6691 Dec, [facility] [id number] [place] [address] 83555- 4945 Nov, [facility] [id number] [place] [address]55- 4680 Oct, [facility] [id number] [place] [address] 74644- 6486 Apr, [facility] [id number] [place] [address] 89[address]- 3601 Apr, [facility] [id number] [place] [address]- 3860 Apr, [facility] [id number] [address] 9[address] Feb, IMMUNIZATIONS No Known Immunizations SOCIAL HISTORY Never Assessed REASON FOR VISIT Medication refill PLAN OF CARE VITAL SIGNS MEDICATIONS Unknown [...]
--- OUTSIDE RECORDS SUMMARY | 2017-12-04 17:48 | XMS REPORT ---
Author Author CEDRIC LAWLER Organization [facility] Address [address] [place] [address] Care Team Providers Care Music Assistant Name Role Phone NURIS CEDRIC Unavailable PROBLEMS Type Condition ICD9-CM Code [id number] Code Onset Dates Condition Status SNOMED Code Problem Nicotine dependence, uncomplicated, unspecified nicotine product type F17.200 Active 53051829 Problem Restless leg syndrome G25.81 Active 63088561 Problem Mild persistent asthma without complication J45.30 Active 770306519 Problem RLS (restless legs syndrome) G25.81 Active 19081756 Problem Hypertension, benign I10 Active 16114283 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
--- OUTSIDE RECORDS SUMMARY | 2017-12-04 17:48 | XMS REPORT ---
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 Name Role Phone CEDRIC LAWLER Unavailable PROBLEMS Type Condition ICD9-CM Code CZE31-IB Code Onset Dates Condition Status SNOMED Code Problem Nicotine dependence, uncomplicated, unspecified nicotine product type F17.200 Active 73218198 Problem Ab[address] CT lung screening R93.8 Active 553255223 Problem Mild persistent asthma without complication J45.30 Active 514423818 Problem Restless leg syndrome G25.81 Active 94094903 Problem Osteoarthritis of spine with radiculopathy, cervical region M47.22 Active 132443287 Problem RLS (restless legs syndrome) G25.81 Active 30920279 Problem Diabetes mellitus type 2, controlled E11.9 Active 923625014 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 102190203540016 Problem Hypertension, benign I10 Active 50570262 Problem Essential hypertension I10 Active 59201217 ALLERGIES Substance Reaction Event Type Date Status Latex rash Drug Allergy Mar, Active Lyrica nightmares Drug Allergy Mar, Active Codeine Phosphate nausea and vomiting Drug Allergy Mar, Active ENCOUNTERS Encounter Location Date Diagnosis [facility] [id number] [place] [address] 42039- 0319 September, Osteoarthritis of spine with radiculopathy, cervical region M47.22 ; Coughing R05 ; Chronic pruritus L29.9 and Breast cancer screening Z12.31 [facility] [id number] [place] [address] 93381- 0942 September, Diabetes mellitus type 2, controlled E11.9 [facility] [id number] [address] Jul, Chronic cough R05 [facility] [id number] [place] [address] 10581- 3081 Jul, [facility] [address] [address] 5531 Jul, Diabetes mellitus type 2, controlled E11.9 [facility] [address] [facility] [id number] [address] 68[address] Jul, [facility] [address] [address]- 0901 Jul, [facility] [address] [facility] [id number], [place] [address] 4[address] Jun, [facility] [id number] [place] [address] 889085- 1907 Jun, Diabetes mellitus type 2, controlled E11.9 [facility] [address] [address] 5208 Jun, [facility] [address] [id number], [place] [address]- 6335 May, [facility] [address] [address]- 8397 May, Diabetes mellitus type 2, controlled E11.9 [facility] [address], [place] [address] 9933 Apr, [facility] [address], [place] [address] 2575 Apr, Pneumonia of right upper lobe due to infectious organism J18.1 [facility] [address], [place] [address] 6004 Mar, [facility] [address], [place] [address]- 7359 Mar, [facility] [address], [place] [address]- 3895 Mar, [facility] [address], [place] [address]- 9440 Mar, Coughing R05 and SOB (shortness of breath) R06.02 [place] [facility] [id number] [place] [address] 88122- 9389 Mar, Diabetes mellitus type 2, controlled E11.9 ; Coughing R05 and SOB (shortness of breath) R06.02 [place] [address] [address]- 6728 Feb, [place] [address] 81245- 2476 Feb, [facility] [address] 23108- 3698 Jan, Hypertension, benign I10 and RLS (restless legs syndrome) G25.81 [place] [address] 66840- 8672 Jan, [place] [facility] [address] 94007- 0432 Dec, Pain in unspecified joint M25.50 and Mild persistent asthma without complication J45.30 [place] [facility] [address] 46300- 4494 Dec, [facility] [id number] [place] [address] 96021- [address] Dec, [address] lung screening R93.8 [place] [facility] [address] 02304- 0765 Dec, [facility] [id number] [place] [address] 37683- 0540 Nov, Screening for breast cancer Z12.31 [place] [facility] [address] 02135- 0489 Nov, [facility] [id number] [place] [address] 33597- 1144 Nov, Essential hypertension I10 [address] [place] [address]- 9507 Nov, Essential hypertension I10 [facility] [id number] [place] [address] 48947- 1126 Oct, Acute non-recurrent maxillary sinusitis J01.00 [facility] [address] [facility] [id number], [place] [address] 0[address] Oct, [facility] [id number] [place] [address] 95957- 8994 September, Acute non-recurrent maxillary sinusitis J01.00 [facility] [address], [place] [address] September, Low back pain M54.5 [facility] [id number] [place] [address] 43042- 4096 September, [facility] [id number] [place] [address] 66101- 0618 Aug, Acute non-recurrent maxillary sinusitis J01.00 [facility] [address] [id number] [id number] Aug, Dental examination Z01.20 [facility] [address], [place] [address]- 8370 Aug, [facility] [address], [place] [address]- 7321 Aug, [facility] [address], [place] [address]- 4454 Aug, [facility] [address], [place] [address]- 3565 Aug, Acute sinusitis J01.90 [facility] [address] 2[address] Jul, [facility] [address], [place] [address]- 0218 Jul, [facility] [id number] [place] [address] 04874- 1171 Jul, [facility] [id number] [place] [address] 77160- 1440 Jul, [facility] [id number] [place] [address] 11160- 4307 07 Jul, 2016 Frequent urination R35.0 and Acute cystitis with hematuria N30.01 [facility] [address] 43578- 5155 Jul, [facility] [address] 94775- 2690 Jun, [facility] [address] 30203- 1504 10 Jun, 2016 Acute sinusitis J01.90 [place] [address] 63166- 2016 03 Jun, 2016 Diabetes mellitus type 2, controlled E11.9 ; Cough R05 ; Acute non-recurrent maxillary sinusitis J01.00 and 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 [facility] [id number] [place] [address] 69914- 2462 May, [facility] [id number] [place] [address] 37229- 7783 May, [facility] [id number] [place] [address] 85385- 3167 May, [facility] [id number] [place] [address] 96356- 4699 Apr, [facility] [id number] [place] [address] 10586- 0264 Apr, [facility] [id number] [place] [address] 01351- 3510 Apr, [facility] [id number] [place] [address] 28789 -7893 Apr, Acute non-recurrent maxillary sinusitis J01.00 [facility] [address], [place] [address]- 7415 Apr, [facility] [id number] [place] [address] 224886- 9812 Feb, [facility] [id number] [place] [address] 34606- 8419 Feb, [facility] [id number] [place] [address] 90442- 6750 Feb, [facility] [id number] [place] [address] 99837- 1615 Feb, [facility] [id number] [place] [address] 99944- 1577 Feb, [facility] [id number] [place] [address] 65173- 1486 Feb, [facility] [id number] [place] [address] 48926- 1636 Jan, RLS (restless legs syndrome) G25.81 ; Osteoarthritis of spine with radiculopathy, cervical region M47.22 ; Lumbar neuritis M54.16 and Left sciatic nerve pain M54.32 [facility] [address], [place] [address]- 6304 Jan, [facility] [id number] [place] [address] 15024- 2415 Dec, [facility] [id number] [place] [address] 60365- 5881 Nov, [facility] [id number] [place] [address] 41751- 6625 Nov, [facility] [id number], [place] [address]- 8250 Nov, [facility] [id number] [place] [address] 10278- 5054 Nov, Restless leg syndrome G25.81 and Controlled type 2 diabetes mellitus without complication, without long-term current use of insulin E11.9 [facility] [id number] [place] [address] 06886- 9727 Nov, [facility] [id number] [place] [address] 77845- 9213 Oct, [facility] [id number] [place] [address] 97458- 4219 Oct, [place] [id number] [place] [address] 92242- 7047 Oct, [facility] [id number] [place] [address] 06223- 8825 Oct, 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 lung screening R93.8 [facility] [id number] [place] [address] 78905- 6053 Oct, [facility] [id number] [place] [address] 90562- 1180 September, [place] [id number] [place] [address] 28329- 9385 September, Physical exam, annual Z00.00 ; Nicotine dependence, uncomplicated, unspecified nicotine product type F17.200 ; Screening breast examination Z12.39 ; Restless leg syndrome G25.81 and Mild persistent asthma without complication J45.30 [place] [id number] [place] [address] 69213- 3080 September, [facility] [id number] [place] [address] 82382- 5357 September, [place] [id number] [place] [address] 75482- 1472 Aug, [place] [id number] [place] [address] 98875- 8286 Jul, Dental examination Z01.20 and Dental caries K02.9 [facility] [id number] [place] [address] 76450- 1502 Jul, [facility] [id number] [place] [address] 55574- 2719 Jul, Diabetes mellitus type 2, controlled E11.9 and Pain in unspecified joint M25.50 [facility] [id number] [place] [address] 63127- 2339 Jul, [facility] [id number] [place] [address] 57318- 6492 Jun, Dental examination Z01.20 [facility] [id number] [place] [address] 17657- 1591 May, [facility] [id number] [place] [address] 93860- 7728 May, [facility] [id number] [place] [address] 04066- 0026 Apr, [facility] [id number] [place] [address] 56157- 4534 Mar, [facility] [id number] [place] [address] 08044- 0001 Mar, Acute sinusitis J01.90 [facility] [id number] [place] [address] 94571- 1790 Feb, [facility] [id number] [place] [address] 38182- 4776 Jan, Flu vaccine need V04.81 [facility] [id number] [place] [address] 08434- 9803 Jan, [facility] [id number] [place] [address] 82917- 6171 Jan, Pain in joint, site unspecified 719.40 [facility] [id number] [place] [address] 61189- 5717 Dec, Pain in joint, site unspecified 719.40 [facility] [address], [place] [address]- 6895 Dec, [facility] [address], [place] [address]- 5641 Dec, [facility] [address], [place] [address]- 0509 Dec, Sciatica 724.3 ; Restless legs syndrome [RLS] 333.94 and Encounter for smoking cessation counseling V65.42 [facility] [address], [place] [address]- 1312 Dec, Nicotine dependence 305.1 [facility] [address] [place] [address] 57877- 7479 Nov, [facility] [address], [place] [address]- 7369 Oct, [facility] [address], [place] [address]- 0627 Oct, [facility] [address], [place] [address]- 8683 September, [facility] [address], [place] [address]- 2446 Aug, [facility] [address], [place] [address]- 9655 Aug, [facility] [address], [place] [address]- 3594 Jul, [facility] [address], [place] [address]- 5243 Jul, [facility] [address] 6280 Jul, [facility] [id number], [place] [address]- 9709 Jun, [facility] [address] [place] [address]- 0106 Jun, [facility] [address] [id number] [place] [address]- 3788 Jun, [facility] [place] [facility] [address] [id number] [place] [address]- 3516 Jun, [facility] [place] [facility] [address] [id number] [place] [address]- 1466 May, [facility] [place] [facility] [address] [id number] [place] [address]- 8849 May, [facility] [place] [facility] [address] [id number] [place] [address]- 6821 May, [facility] [place] [facility] [address] [id number] [place] [address]- 2968 May, [facility] [place] [facility] [address] [id number] [place] [address]- 0744 May, [facility] [address] [id number] [place] [address]- 7390 May, [facility] [place] [facility] [address] [id number] [place] [address]- 0344 May, [facility] [address] [id number] [place] [address]- 5087 Apr, [facility] [place] [facility] [address] [id number] [place] [address]- 2414 Apr, [facility] [place] [facility] [address] [id number] [place] [address]- 4105 Apr, [facility] [place] [facility] [address] [id number] [place] [address]- 2120 Apr, [facility] [place] [facility] [address] [id number] [place] [address]- 5416 Apr, [facility] [place] [facility] [address] [id number] [place] [address]- 0975 Apr, [facility] [place] [facility] [address] [id number] [place] [address]- 4361 Apr, [facility] [place] [facility] [address] [id number] [place] [address]- 9193 Apr, [facility] [place] [facility] [address] [id number] [place] 2267 Apr, [facility] [place] [facility] [address] [id number] [place] [address]- 9687 Apr, [facility] [place] [facility] [address] [id number] [place] [address]- 8462 Mar, [facility] [place] [facility] [address] [id number] [place] [address]- 1365 Mar, [facility] [place] [facility] [address] [id number] [place] [address]- 6938 Mar, [facility] [place] [facility] [address] [id number] [place] [address]- 7102 Mar, [facility] [place] [facility] [address] [id number] [place] [address]- 3753 Mar, [facility] [place] [facility] [address] [id number], [place] [address]- 8477 Mar, [facility] [place] [facility] [address] [id number], [place] [address]- 9447 Feb, [facility] [place] [facility] [address] [id number], [place] [address]- 7118 15 Feb, 2014 [facility] [place] [facility] [address] [id number] [place] [address]- 5407 Feb, [facility] [place] [facility] [address] [id number], [place] [address]- 9394 Feb, [facility] [place] [facility] [address] [id number] [place] [address]- 4790 Feb, [facility] [place] [facility] [address] [id number] [place] [address]- 7329 Feb, [facility] [place] [facility] [address] [id number] [place] [address]- 3335 Jan, [facility] [place] [facility] [address] [id number] [place] [address]- 3561 Jan, [facility] [place] [facility] [address] [id number] [place] [address]- 0204 Jan, [facility] [place] [facility] [address] [id number] [place] [address]- 7056 Jan, [facility] [place] [facility] [address] [id number] [place] [address]- 9546 Dec, [facility] [place] [facility] [address] [id number] [place] [address]- 4667 Dec, [facility] [place] [facility] [address] [id number] [place] [address]- 1826 Dec, [facility] [place] [facility] [address] [id number] [place] [address]- 8747 Dec, [facility] [place] [facility] [address] [id number] [place] [address]- 7789 Dec, [facility] [place] [facility] [address] [id number] [place] [address]- 7743 Nov, [facility] [place] [facility] [address] [id number] [place] [address]- 3888 16 Nov, 2013 [facility] [place] [facility] [address] [id number] [place] [address]- 9988 Nov, [facility] [place] [facility] [address] [id number] [place] [address]- 0247 Nov, [facility] [place] [facility] [address] [id number] [place] [address]- 8061 Nov, [facility] [place] [facility] [address] [id number] [place] [address]- 6094 Nov, [facility] [place] [facility] [address] [id number] [place] [address]- 7985 Oct, [facility] [place] [facility] [address] [id number] [place] [address]- 9775 Oct, [facility] [place] [facility] [address] [id number] [place] [address]- 5783 September, [facility] [place] [facility] [address] [id number] [place] [address]- 8590 September, [facility] [place] [facility] [address] [id number] [place] [address]- 8521 September, [facility] [place] [facility] [address] [id number] [place] [address]- 7121 September, [facility] [place] [facility] [address] [id number] [place] [address]- 7862 Aug, [facility] [place] [facility] [address] [id number] [place] [address]- 6546 Aug, [facility] [place] [facility] [address] [id number] [place] [address]- 3581 Jul, [facility] [place] [facility] [address] [id number] [place] [address]- 6676 17 Jul, 2013 [facility] [place] [facility] [address] [id number] [place] [address]- 8122 Jul, [facility] [place] [facility] [address] [id number] [place] [address]- 9768 Jul, [facility] [place] [facility] [address] [id number] [place] [address]- 1566 Jun, [facility] [place] [facility] [address] [id number] [place] [address]- 0170 Jun, [facility] [place] [facility] [address] [id number] [place] [address]- 2649 Jun, [facility] [place] [facility] [address] [id number], [place] [address]- 2910 Jun, [facility] [address] [id number] [place] [address]- 5792 May, [facility] [place] [facility] [address] [id number], [place] [address]- 7991 May, [facility] [place] [facility] [address] [id number] [place] [address]- 0120 May, [facility] [place] [facility] [address] [id number] [place] [address]- 2292 May, [facility] [place] [facility] [address] [id number] [place] [address]- 8124 Apr, [facility] [place] [facility] [address] [id number] [place] [address]- 8835 Apr, [facility] [place] [facility] [address] [id number], [place] [address] Apr, [facility] [place] [facility] [address] [id number] [place] [address] Mar, [facility] [place] [facility] [address] [id number], [place] [address] Mar, [facility] [place] [facility] [address] [id number], [place] [address] Mar, [facility] [place] [facility] [address] [id number], [place] [address] Mar, [facility] [place] [facility] [address] [id number], [place] [address] Feb, [facility] [place] [facility] [address] [id number], [place] [address] Feb, [facility] [place] [facility] [address] [id number], [place] [address] Feb, [facility] [place] [facility] [address] [id number] [place] [address] Feb, [facility] [place] [facility] [address] [id number] [place] [address] 17 Feb, 2012 [facility] [place] [facility] [address] [id number] [place] [address] Feb, [facility] [place] [facility] [address] [id number] [place] [address] Feb, [facility] [place] [facility] [address] [id number] [place] [address] 254 Feb, [facility] [place] [facility] [address] [id number] [place] [address] Jan, [facility] [place] [facility] [address] [id number] [place] [address] Jan, [facility] [place] [facility] [address] [id number] [place] [address] Jan, [facility] [place] [facility] [address] [id number] [place] [address] Dec, [facility] [place] [facility] [address] [id number] [place] [address] Dec, [facility] [place] [facility] [address] [id number] [place] [address] Nov, [facility] [place] [facility] [address] [id number] [place] [address] Nov, [facility] [place] [facility] [address] [id number] [place] [address] Nov, [facility] [place] [facility] [address] [id number] [place] [address] Nov, [facility] [place] [facility] [address] [id number] [place] [address] Oct, [facility] [place] [facility] [address] [id number] [place] [address] Oct, [facility] [place] [facility] [address] [id number] [place] [address] Oct, [facility] [address] [id number] [place] [address] September, [facility] [place] [facility] [address] [id number] [place] [address] September, [facility] [address] [id number] [place] [address] September, [facility] [place] [facility] [address] [id number] [place] [address] September, [facility] [address] [id number] [place] [address] Aug, [facility] [place] [facility] [address] [id number] [place] [address] Aug, [facility] [address] [id number] [place] [address] Jul, [facility] [place] [facility] [address] [id number] [place] [address] Jul, [facility] [place] [facility] [address] [id number] [place] [address] Jul, [facility] [place] [facility] [address] [id number] [place] [address] Jul, [facility] [place] [facility] [address] [id number] [place] [address] Jul, [facility] [place] [facility] [address] [id number] [address] Jun, [facility] [place] [facility] [address] [id number] [place] [address] Jun, [facility] [place] [facility] [address] [id number] [place] [address] Jun, [facility] [place] [facility] [address] [id number] [place] [address] May, [facility] [place] [facility] [address] [id number] [place] [address] May, [facility] [address] [id number] [place] [address] May, [facility] [place] [facility] [address] [id number] [place] [address] Apr, [facility] [address] [id number] [place] [address] Apr, [facility] [place] [facility] [address] [id number] [place] [address] Apr, [facility] [address] [id number] [place] [address] Apr, [facility] [place] [facility] [address] [id number] [place] [address] Apr, [facility] [address] [id number] [place] [address] Apr, [facility] [place] [facility] [address] [id number] [place] [address] Apr, [facility] [place] [facility] [address] [id number] [place] [address] Apr, [facility] [address] [id number] [place] [address] Mar, [facility] [place] [facility] [address] [id number] [place] [address] Mar, [facility] [place] [facility] [address] [id number] [place] [address] Mar, [facility] [place] [facility] [address] [id number] [place] [address] Mar, [facility] [place] [facility] [address] [id number] [place] [address] Mar, [facility] [place] [facility] [address] [id number] [place] [address] Mar, [facility] [place] [facility] [address] [id number] [place] [address] Mar, [facility] [place] [facility] [address] [id number] [place] [address] Mar, [facility] [place] [facility] [address] [id number] [place] [address] Mar, [facility] [place] [facility] [address] [id number] [place] [address] Mar, [facility] [place] [facility] [address] [id number] [place] [address] Feb, [facility] [place] [facility] [address] [id number] [place] [address] Feb, [facility] [place] [facility] [address] [id number] [place] [address] Feb, [facility] [place] [facility] [address] [id number] [place] [address] Jan, [facility] [place] [facility] [address] [id number] [place] [address] Jan, [facility] [place] [facility] [address] [id number] [place] [address] Jan, [facility] [place] [facility] [address] [id number] [place] [address] Dec, [facility] [place] [facility] [address] [id number] [place] [address] 15 Dec, 2011 [facility] [place] [facility] [address] [id number] [place] [address] Dec, [facility] [place] [facility] [address] [id number] [place] [address] Dec, [facility] [place] [facility] [address] [id number] [place] [address] Dec, [facility] [place] [facility] [address] [id number] [place] [address] Nov, [facility] [address] [id number] [place] [address] Nov, [facility] [place] [facility] [address] [id number] [place] [address] Oct, [facility] [place] [facility] [address] [id number] [place] [address] September, [facility] [place] [facility] [address] [id number] [place] [address] September, [facility] [place] [facility] [address] [id number] [place] [address] September, [facility] [place] [facility] [address] [id number] [place] [address] September, [facility] [place] [facility] [address] [id number] [place] [address] September, [facility] [place] [facility] [address] [id number] [place] [address] Aug, [facility] [place] [facility] [address] [id number] [place] [address] 16 Jul, 2011 [facility] [place] [facility] [address] [id number] [place] [address] 15 Jul, 2011 [facility] [place] [facility] [address] [id number] [place] [address] 14 Jul, 2011 [facility] [place] [facility] [address] [id number] [place] [address] 14 Jul, 2011 [facility] [place] [facility] [address] [id number] [place] [address] Jul, [facility] [place] [facility] [address] [id number] [place] [address] 6[address] Jul, [facility] [place] [facility] [address] [id number] [place] [address]- [address] 08 Jul, 2011 [facility] [place] [facility] [address] [id number] [place] [address] Jul, [facility] [place] [facility] [address] [id number] [place] [address]- 1334 27 Jun, 2011 [facility] [place] [facility] [address] [id number] [place] [address] 16 Jun, 2011 [facility] [place] [facility] [address] [id number] [place] [address] 10 Jun, 2011 [facility] [place] [facility] [address] [id number] [place] [address] May, [facility] [place] [facility] [address] [id number] [place] [address] Apr, [facility] [place] [facility] [address] [id number] [place] [address] 2914 Apr, [facility] [place] [facility] [address] [id number] [place] [address]100 Mar, [facility] [place] [facility] [address] [id number] [place] [address] 1438 Mar, [facility] [place] [facility] [address] [id number] [place] [address] 3[address] Mar, [facility] [place] [facility] [address] [id number] [place] [address] Feb, [facility] [place] [facility] [address] [id number] [place] [address] 7797 Feb, [facility] [place] [facility] [address] [id number] [place] [address] 27[address] Feb, [facility] [place] [facility] [address] [id number] [place] [address] 6787 Apr, [facility] [place] [facility] [address] [id number] [place] [address] 9438 Apr, [facility] [place] [facility] [address] [id number] [place] [address] Mar, [facility] [place] [facility] [address] [id number] [place] [address]- 4085 Mar, [facility] [place] [facility] [address] [id number] [place] [address]- 8425 Mar, [facility] [place] [facility] [address] [id number] [place] [address]- 2565 Mar, [facility] [place] [facility] [address] [id number], [place] [address] Mar, [facility] [place] [facility] [address] [id number] [place] [address]- 9198 Feb, [facility] [place] [facility] [address] [id number], [place] [address] September, [facility] [place] [facility] [address] [id number] [place] [address]- 4669 Aug, [facility] [place] [facility] [address] [id number], [place] [address]- [address] Apr, [facility] [place] [facility] [address] [id number], [place] [address]- [address]85 15 Apr, 2009 [facility] [place] [facility] [address] [id number], [place] [address]- [address] Mar, [facility] [place] [facility] [address] [id number], [place] [address]- 66[address] Mar, [facility] [place] [facility] [address] [id number], [place] [address]- 6[address] Mar, [facility] [place] [facility] [address] [id number], [place] [address]- 9736 Feb, [facility] [place] [facility] [address] [id number], [place] [address]- [address] 18 Jan, 2009 [facility] [place] [facility] [address] [id number], [place] [address] Dec, [facility] [place] [facility] [address] [facility] [id number], [place] [address] Nov, [facility] [address] [id number], [place] [address] Oct, [facility] [address] [id number], [place] [address] Apr, [facility] [address] [id number] [address] Apr, [facility] [address] [id number], [place] [address] 269[address] Apr, [facility] [address] [id number], [place] [address] Feb, IMMUNIZATIONS No Known Immunizations SOCIAL HISTORY Never Assessed REASON FOR VISIT PT is here today for a respitory infection f/u, one month ago was given antibiotics that didnt work, PT has a cough with yellow mucusAishwaryaWashington MA PLAN OF CARE Activity Details Follow Up 4 Weeks Reason:neuropathy VITAL SIGNS Height 61 in 2017-03-14 Weight 154.7 lbs 2017-03-14 Temperature 98.1 degrees Fahrenheit 2017-03-14 Heart Rate 75 bpm 2017-03-14 Respiratory Rate 20 2017-03-14 Oximetry 98 % 2017-03-14 BMI 29.23 kg/m2 2017-03-14 Blood pressure systolic 128 mmHg 2017-03-14 Blood pressure diastolic 72 mmHg 2017-03-14 MEDICATIONS Medication Instructions Dosage Frequency Start Date End Date Duration Status Albuterol Sulfate HFA 108 (90 Base) MCG/ACT Inhalation every 4 hrs 2 puffs as needed 4h September, Active [place] 10-325 MG Orally every 6 hrs 1 tablet as needed 6h Mar, 28 days Active Imipramine HCl 25 MG Orally Once a day 1 tablet at bedtime 24h Mar, 30 day(s) Active Pantoprazole Sodium 40MG Orally Once a day TAKE ONE TABLET BY MOUTH ONCE DAILY 24h 90 Active Requip XL 4 MG Orally Once a day 1 tablet 24h September, Active Chlorpheniramine Maleate 8 mg 1 capsule by Oral route 2 times per day PRN Jan, Active Combivent Respimat 20-100 MCG/ACT Inhalation Four times a day 1 puff 6h Mar, Active Glucometer 1 test blood sugar Nov, Active Mirapex 0.5 MG Orally Three times a day 1 tablet 8h Jan, Active Tizanidine HCl 4MG Orally Three times a day 1 tablet as needed 8h 30 Active Atenolol 100 mg Orally Once a day 1 tablet 24h Jan, 30 day(s) Active Advair Diskus 250-50 mcg/dose INHALE ONE DOSE BY MOUTH IN THE MORNING AND ONE IN THE EVENING APPROXIMATELY 12 HOURS APART 30 Active RESULTS No Results PROCEDURES Procedure Date Ordered Result Body Site MEASURE BLOOD OXYGEN LEVEL Mar 14, 2017 GLYCATED HEMOGLOBIN TEST Mar 14, 2017 CHEST X-RAY Mar 14, 2017 VENIPUNCT, ROUTINE* Mar 14, 2017 LAB NOT BILLED BY [facility] Mar 14, 2017 INSTRUCTIONS MEDICATIONS ADMINISTERED No Known Medications [...]
--- OUTSIDE RECORDS SUMMARY | 2017-12-04 17:48 | XMS REPORT ---
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
--- OUTSIDE RECORDS SUMMARY | 2017-12-04 17:49 | XMS REPORT ---
Author Author CEDRIC LAWLER [facility] Address [address] [place] [address] Care Team Providers Care Energy Efficiency Engineer Name Role Phone CEDRIC LAWLER Unavailable PROBLEMS Type Condition ICD9-CM Code [id number] Code Onset Dates Condition Status SNOMED Code Problem Restless leg syndrome G25.81 Active 28919678 Problem Essential hypertension I10 Active 05458692 Problem Diabetes mellitus type 2, controlled E11.9 Active 633123661 Problem Mild persistent asthma without complication J45.30 Active 628518458 Problem Nicotine dependence, uncomplicated, unspecified nicotine product type F17.200 Active 85803374 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
--- OUTSIDE RECORDS SUMMARY | 2017-12-04 17:49 | XMS REPORT ---
Author CEDRIC Peñaloza Organization [employer] Address Unknown Phone Unavailable Care Team Providers Care Photofinishing Laboratory Worker Name Role Phone CEDRIC LAWLER CP [...] Start Date End Date Status Dosage Hydrocodone-Acetaminophen [facility] [address]-55 10-325 MG Orally every 6 hrs July 19, 2014 take 1 tablet Results No Known Results Summary Purpose [employer] Submission
--- OUTSIDE RECORDS SUMMARY | 2017-12-04 17:49 | XMS REPORT ---
Author CEDRIC Peñaloza Organization [employer] Address Unknown Phone Unavailable Care Team Providers Care Order Checker Packer Processer Name Role Phone CEDRIC LAWLER CP Unavailable [...] Start Date End Date Status Dosage Hydrocodone-Acetaminophen [facility] [address]-99 10-325 MG Orally every 6 hrs July 19, 2014 Apr 09, 2016 take 1 tablet Results No Known Results Summary Purpose [employer] Submission
--- OUTSIDE RECORDS SUMMARY | 2017-12-04 17:49 | XMS REPORT ---
Author Author CEDRIC LAWLER Organization [facility] Address [address] [place] [address] Care Team Providers Care Manager Proposal Name Role Phone NURIS CEDRIC Unavailable PROBLEMS Type Condition ICD9-CM Code TVK36-MD Code Onset Dates Condition Status SNOMED Code Problem Nicotine dependence, uncomplicated, unspecified nicotine product type F17.200 Active 16345403 Problem Restless leg syndrome G25.81 Active 08778297 Problem Mild persistent asthma without complication J45.30 Active 985208328 Problem RLS (restless legs syndrome) G25.81 Active 41749113 Problem Hypertension, benign I10 Active 02461231 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
--- OUTSIDE RECORDS SUMMARY | 2017-12-04 17:49 | XMS REPORT ---
Author Author CEDRIC LAWLER Organization [facility] [place] Address [address] [place] [address] Care Team Providers Care Firmware Engineer Name Role Phone CEDRIC LAWLER Unavailable PROBLEMS Type Condition ICD9-CM Code MNV22-HC Code Onset Dates Condition Status SNOMED Code Problem Nicotine dependence, uncomplicated, unspecified nicotine product type F17.200 Active 26626743 Problem Ab[address] CT lung screening R93.8 Active 633812575 Problem Mild persistent asthma without complication J45.30 Active 583390467 Problem Restless leg syndrome G25.81 Active 36774351 Problem Osteoarthritis of spine with radiculopathy, cervical region M47.22 Active 146064599 Problem RLS (restless legs syndrome) G25.81 Active 02212103 Problem Diabetes mellitus type 2, controlled E11.9 Active 800556873 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 [id number] Problem Hypertension, benign I10 Active 52834596 Problem Essential hypertension I10 Active 85458192 ALLERGIES No Information ENCOUNTERS Encounter Location Date Diagnosis [place] [id number] [place] [address] 17671- 6590 Oct, [place] [address] [place] [id number] [place] [address] 75333- 2815 Oct, [place] [address] [address] [id number] [place] [address] 42460- 2561 Oct, Skin tags, multiple acquired L91.8 [place] [address] [address] [id number] [place] [address] 15551- 4186 Oct, [place] [address] [address] [id number] [place] [address] 54709- 9383 Oct, Diabetes mellitus type 2, controlled E11.9 and Osteoarthritis of spine with radiculopathy, cervical region M47.22 [place] [id number] [address] [address] September, Osteoarthritis of spine with radiculopathy, cervical region M47.22 ; Coughing R05 ; Chronic pruritus L29.9 and Breast cancer screening Z12.31 [facility] [place] [address] [address] September, Diabetes mellitus type 2, controlled E11.9 [facility] [address] [address] Jul, Chronic cough R05 [facility] [place] [id number] [place] [address], [place] [address]- 0858 Jul, [facility] [place] [id number] [place] [address] 26075- 1807 Jul, Diabetes mellitus type 2, controlled E11.9 [facility] [place] [address], [place] [address]- 2400 Jul, [facility] [place] [address], [place] [address]- 2702 Jul, [facility] [place] [address], [place] [address]- 5656 Jun, [facility] [place] [address], [place] [address]- 1272 Jun, Diabetes mellitus type 2, controlled E11.9 [facility] [place] [address] [address]- 2904 Jun, [facility] [place] [address] [address]13 May, [facility] [place] [address] 5616 May, Diabetes mellitus type 2, controlled E11.9 [facility] [place] [address] 2476 Apr, [facility] [place] [id number] [place] [address] 37971- 8668 Apr, Pneumonia of right upper lobe due to infectious organism J18.1 [place] [address] 27810- 1532 Mar, [place] [address] 65868- 1860 Mar, [place] [address] 13255- 0758 Mar, [place] [address] 21405- 4303 03 Mar, 2017 Coughing R05 and SOB (shortness of breath) R06.02 [place] [address] 97080- 5268 Mar, Diabetes mellitus type 2, controlled E11.9 ; Coughing R05 and SOB (shortness of breath) R06.02 [place] [address] 95806- 9601 Feb, [place] [address] 62457- 1492 Feb, [place] [address] 02759- 8361 Jan, Hypertension, benign I10 and RLS (restless legs syndrome) G25.81 [place] [address] 72023- 0824 Jan, [place] [address] 65212- 4459 Dec, Pain in unspecified joint M25.50 and Mild persistent asthma without complication J45.30 [place] [address] 54422- 5243 Dec, [place] [address] 92788- [address] Dec, [address] lung screening R93.8 [facility] [place] [address], [place] [address]- 4920 Dec, [facility] [place] [address] [id number] [place] [address] 38641- 2934 Nov, Screening for breast cancer Z12.31 [facility] [place] [address] [address] [id number] [place] [address] 62414- 3169 Nov, [facility] [place] [address] [address] [address] [place] [address] 52712- 3076 Nov, Essential hypertension I10 [facility] [place] [address] [address] [place] [address] 79346- 3843 Nov, Essential hypertension I10 [facility] [place] [address] [address] [address] [place] [address] 24015- 9646 Oct, Acute non-recurrent maxillary sinusitis J01.00 [facility] [place] [address] [place] [address] [address] [place] [address] 09172- 7762 Oct, [facility] [place] [address] [address] [address] [place] [address] 19584- 6563 September, Acute non-recurrent maxillary sinusitis J01.00 [facility] [address] [place] [address] 37383 -5657 September, Low back pain M54.5 [facility] [place] [address] [place] [address] 00162- 1812 September, [facility] [place] [address] [place] [address] 12785- 0119 Aug, Acute non-recurrent maxillary sinusitis J01.00 [facility] [address] [address] Aug, Dental examination Z01.20 [facility] [place] [address] [place] [address] 22017- 2135 Aug, [facility] [place] [address] [place] [address] [id number] [place] [address] 71868- 7086 Aug, [facility] [place] [address], [place] [address]- 5044 Aug, [facility] [place] [address] [place] [id number] [place] [address] 20014- 9177 Aug, Acute sinusitis J01.90 [facility] [place] [address] [place] [address] [address] [place] [address] 76610- 7583 Jul, [facility] [place] [address] [place] [address] [address] [place] [address] 91581- 0902 Jul, [facility] [place] [address] [place] [address] [place] [address] 09235- 1440 Jul, [facility] [place] [address] [place] [id number] [place] [address] 35734- 3794 Jul, [facility] [place] [address] [place] [address] [place] [address] 02056- 3224 Jul, Frequent urination R35.0 and Acute cystitis with hematuria N30.01 [facility] [place] [address] [place] [address] 91179- 0116 Jul, [facility] [place] [address] [address] [id number] [place] [address] 02494- 9714 Jun, [facility] [place] [address] [address] [address] [place] [address] 16700- 4716 Jun, Acute sinusitis J01.90 [facility] [place] [address] [place] [address] [place] [address] 83085- 7726 Jun, Diabetes mellitus type 2, controlled E11.9 ; Cough R05 ; Acute non-recurrent maxillary sinusitis J01.00 and 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 Z79.891 [facility] [place] [address], [place] [address]- 8731 May, [facility] [place] [address] [address] [id number] [place] [address] 77083- 6045 May, [facility] [place] [address], [place] [address]- 6121 May, [facility] [place] [address] [address] [id number] [place] [address] 47310- 3653 Apr, [facility] [place] [address] [address]- 6387 Apr, [facility] [place] [address] [address] [id number] [place] [address] 76091- 6021 Apr, [facility] [address], [place] [address]66 Apr, Acute non-recurrent maxillary sinusitis J01.00 [facility] [place] [address] [place] [address] [id number] [place] [address] 04056- 1728 Apr, [facility] [place] [address] [address] [id number] [place] [address] 69712- 7676 Feb, [facility] [place] [address] [address] [id number] [place] [address] 07048- 6714 Feb, [facility] [place] [address] [address] [id number] [place] [address] 74182- 9045 Feb, [facility] [place] [address] [address] [id number] [place] [address] 76488- 2191 Feb, [facility] [place] [address] [place] [address] 96377- 0156 Feb, [facility] [place] [address] [place] [id number] [place] [address] 42995- 2551 Feb, [facility] [place] [address] [address] [id number] [place] [address] 66108- 0680 Jan, RLS (restless legs syndrome) G25.81 ; Osteoarthritis of spine with radiculopathy, cervical region M47.22 ; Lumbar neuritis M54.16 and Left sciatic nerve pain M54.32 [facility] [place] [address] [place] [id number] [place] [address] 96724- 6148 Jan, [facility] [place] [address], [place] [address]- 4855 Dec, [facility] [place] [address], [place] [address]- 1626 Nov, [facility] [place] [address], [place] [address]- 0318 Nov, [facility] [place] [address] [place] [id number] [place] [address] 61990- 7410 Nov, [facility] [place] [address], [place] [address]- 8616 Nov, Restless leg syndrome G25.81 and Controlled type 2 diabetes mellitus without complication, without long-term current use of insulin E11.9 [place] [address], [place] [address]- 5060 Nov, [facility] [place] [id number] [place] [address] 19993- 5157 Oct, [facility] [place] [address], [place] [address]- 4219 Oct, [facility] [place] [address], [place] [address]- 9545 Oct, [facility] [place] [address], [place] [address]- 4741 Oct, 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 lung screening R93.8 [facility] [place] [address], [place] [address]- 4974 Oct, [facility] [place] [address], [place] [address]- 6454 September, [facility] [place] [address], [place] [address]- 5632 September, Physical exam, annual Z00.00 ; Nicotine dependence, uncomplicated, unspecified nicotine product type F17.200 ; Screening breast examination Z12.39 ; Restless leg syndrome G25.81 and Mild persistent asthma without complication J45.30 [facility] [place] [address] [place] [id number] [place] [address] 84158- 6005 September, [facility] [place] [address] [place] [id number] [place] [address] 56492- 6695 September, [facility] [place] [address] [place] [id number] [place] [address] 44059- 3948 Aug, [facility] [place] [address] [place] [address] [place] [address] 70615- 5118 09 Jul, 2015 Dental examination Z01.20 and Dental caries K02.9 [place] [address] 11531- 3025 Jul, [facility] [place] [address] [place] [address] [place] [address] 66450- 8924 Jul, Diabetes mellitus type 2, controlled E11.9 and Pain in unspecified joint M25.50 [facility] [place] [address] [place] [address] [place] [address] 04373- 3531 Jul, [facility] [place] [address] [place] [address] [place] [address] 73984- 0629 Jun, Dental examination Z01.20 [facility] [place] [address] [place] [address] [place] [address] 56678- 2920 May, [facility] [place] [address] [place] [address] [place] [address] 61077- 1504 May, [facility] [place] [address] [place] [address] [place] [address] 55382- 3626 Apr, [facility] [place] [address] [place] [address] [place] [address] 03944- 2046 Mar, [facility] [place] [address] [place] [address] [place] [address] 84907- 7637 Mar, Acute sinusitis J01.90 [facility] [place] [address] [place] [address] [place] [address] 70714- 0343 Feb, [facility] [place] [address], [place] [address]- 7283 Jan, Flu vaccine need V04.81 [facility] [place] [address] [place] [address] [id number] [place] [address] 81990- 8886 Jan, [facility] [place] [address] [place] [address] 08882- 7136 Jan, Pain in joint, site unspecified 719.40 [facility] [place] [address] [address] [address] [place] [address] 67331- 4940 Dec, Pain in joint, site unspecified 719.40 [facility] [place] [address] 13135- 9717 Dec, [facility] [place] [address] [id number] [place] [address] 43417- 5071 Dec, [facility] [place] [address] [address] [place] [address] 18403- 3404 Dec, Sciatica 724.3 ; Restless legs syndrome [RLS] 333.94 and Encounter for smoking cessation counseling V65.42 [facility] [place] [id number] [place] [address] 88540- 1441 Dec, Nicotine dependence 305.1 [facility] [place] [address] [place] [id number] [place] [address] 39763- 3742 Nov, [facility] [place] [id number] [place] [address] 62802- 8820 Oct, [facility] [place] [id number] [place] [address] 01157- 5540 Oct, [facility] [place] [id number] [place] [address] 25214- 1499 September, [facility] [place] [id number] [place] [address] 84818- 3115 Aug, [facility] [place] [address] [place] [address]- 7252 Aug, [facility] [place] [facility] [address] [id number] [place] [address]- 6293 Jul, [facility] [place] [facility] [address] [id number] [place] [address]- 5122 Jul, [facility] [place] [facility] [address] [id number] [place] [address]- 9041 Jul, [facility] [place] [facility] [address] [id number] [place] [address]- 3994 Jun, [facility] [place] [facility] [address] [id number] [place] [address]- 0860 Jun, [facility] [place] [facility] [address] [id number] [place] [address]- 2820 Jun, [facility] [place] [facility] [address] [id number] [place] [address]- 4973 Jun, [facility] [place] [facility] [address] [id number] [place] [address]- 8574 May, [facility] [place] [facility] [address] [id number] [place] [address]- 2358 May, [facility] [place] [facility] [address] [id number] [place] [address]- 2586 May, [facility] [place] [facility] [address] [id number] [place] [address]- 4280 May, [facility] [place] [facility] [address] [id number] [place] [address]- 4317 May, [facility] [place] [facility] [address] [id number] [place] [address]- 5192 May, [facility] [place] [facility] [address] [id number] [place] [address]- 1686 May, [facility] [place] [facility] [address] [id number] [place] [address]- 9788 Apr, [facility] [place] [facility] [address] [id number] [place] 0166 Apr, [facility] [place] [facility] [address] [id number] [place] [address]- 4918 Apr, [facility] [place] [facility] [address] [id number] [place] 5069 Apr, [facility] [place] [facility] [address] [id number] [place] [address]- 7889 Apr, [facility] [place] [facility] [address] [id number] [place] 5589 Apr, [facility] [place] [facility] [address] [id number] [place] 0325 Apr, [facility] [place] [facility] [address] [id number] [place] [address]- 5476 Apr, [facility] [place] [facility] [address] [id number] [place] [address]- 6548 Apr, [facility] [place] [facility] [address] [id number] [place] [address]- 8310 Apr, [facility] [place] [facility] [address] [id number] [place] [address]- 5745 Mar, [facility] [place] [facility] [address] [id number] [place] [address]- 8946 Mar, [facility] [place] [facility] [address] [id number] [place] [address]- 2693 Mar, [facility] [place] [facility] [address] [id number] [place] [address] Mar, [facility] [place] [facility] [address] [id number] [place] [address] Mar, [facility] [place] [facility] [address] [id number] [place] [address] Mar, [facility] [place] [facility] [address] [id number] [place] [address] 15 Feb, 2014 [facility] [place] [facility] [address] [id number] [place] [address] 15 Feb, 2014 [facility] [place] [facility] [address] [id number] [place] [address] Feb, [facility] [place] [facility] [address] [id number] [place] [address] Feb, [facility] [place] [facility] [address] [id number] [place] [address] Feb, [facility] [place] [facility] [address] [id number] [place] [address] Feb, [facility] [place] [facility] [address] [id number] [place] [address] Jan, [facility] [place] [facility] [address] [id number] [place] [address] Jan, [facility] [place] [facility] [address] [id number] [place] [address] Jan, [facility] [place] [facility] [address] [id number] [place] [address] Jan, [facility] [place] [facility] [address] [id number] [place] [address] Dec, [facility] [place] [facility] [address] [id number] [place] [address] Dec, [facility] [place] [facility] [address] [id number] [place] [address] Dec, [facility] [place] [facility] [address] [id number] [place] [address] Dec, [facility] [place] [facility] [address] [id number] [place] [address] Dec, [facility] [place] [facility] [address] [id number] [place] [address] 16 Nov, 2013 [facility] [place] [facility] [address] [id number] [place] [address] 16 Nov, 2013 [facility] [place] [facility] [address] [id number] [place] [address] 15 Nov, 2013 [facility] [place] [facility] [address] [id number] [place] [address] 15 Nov, 2013 [facility] [place] [facility] [address] [id number] [place] [address] 15 Nov, 2013 [facility] [place] [facility] [address] [id number] [place] [address] 15 Nov, 2013 [facility] [place] [facility] [address] [id number] [place] [address] 16 Oct, 2013 [facility] [facility] [address] [id number] [place] [address] 16 Oct, 2013 [facility] [place] [facility] [address] [id number] [place] [address] 16 Sep, 2013 [facility] [place] [facility] [address] [id number] [place] [address] 16 Sep, 2013 [facility] [place] [facility] [address] [id number] [place] [address] 14 Sep, 2013 [facility] [place] [facility] [address] [id number] [place] [address]- [address] 14 Sep, 2013 [facility] [place] [facility] [address] [id number] [place] [address] 14 Aug, 2013 [facility] [place] [facility] [address] [id number] [place] [address] 14 Aug, 2013 [facility] [place] [facility] [address] [id number] [place] [address] 17 Jul, 2013 [facility] [place] [facility] [address] [id number] [place] [address] 17 Jul, 2013 [facility] [place] [facility] [address] [id number] [place] [address] 32[address] 14 Jul, 2013 [facility] [place] [facility] [address] [id number] [place] [address]- 1146 14 Jul, 2013 [facility] [place] [facility] [address] [id number] [place] [address] 2013 Jun, [facility] [place] [facility] [address] [id number] [place] [address] 67[address] Jun, [facility] [place] [facility] [address] [id number] [place] [address] 8[address] Jun, [facility] [place] [facility] [address] [id number] [place] [address] 8[address] Jun, [facility] [place] [facility] [address] [id number] [place] [address] 75[address] May, [facility] [place] [facility] [address] [id number] [place] [address]- 2353 May, [facility] [place] [facility] [address] [id number] [place] [address]- 3[address] May, [facility] [place] [facility] [address] [id number] [place] [address]- 1311 May, [facility] [place] [facility] [address] [id number] [place] [address]- 2047 Apr, [facility] [place] [facility] [address] [id number] [place] [address]- 3452 Apr, [facility] [place] [facility] [address] [id number] [place] [address]- 7207 Apr, [facility] [place] [facility] [address] [id number] [place] [address]- 5457 Mar, [facility] [place] [facility] [address] [id number] [place] [address]- 8562 Mar, [facility] [place] [facility] [address] [id number] [place] [address]- 1554 Mar, [facility] [place] [facility] [address] [id number] [place] [address]- 2247 Mar, [facility] [address] [id number] [place] [address]- 9189 Feb, 2012 [facility] [place] [facility] [address] [id number] [place] [address] Feb, [facility] [address] [id number] [place] [address]- 7581 Feb, [facility] [place] [facility] [address] [id number] [place] [address]- 9383 Feb, [facility] [address] [id number] [place] [address]- 3388 Feb, [facility] [place] [facility] [address] [id number] [place] [address]- 7788 Feb, [facility] [address] [id number] [place] [address]- 1450 Feb, [facility] [address] [id number] [place] [address]- 6092 Feb, [facility] [place] [facility] [address] [id number] [place] [address]- 6493 Jan, [facility] [place] [facility] [address] [id number] [place] [address]- 4279 Jan, [facility] [place] [facility] [address] [id number] [place] [address]- 2541 Jan, [facility] [place] [facility] [address] [id number] [place] [address]- 7301 Dec, [facility] [place] [facility] [address] [id number] [place] [address]- 7907 Dec, [facility] [place] [facility] [address] [id number] [place] [address]- 2635 Nov, [facility] [place] [facility] [address] [id number] [place] [address]- 7385 Nov, [facility] [place] [facility] [address] [id number] [place] [address]- 8224 Nov, [facility] [address] [id number] [place] [address]- 7483 Nov, [facility] [address] [id number] [place] [address] 4374 Oct, [facility] [place] [facility] [address] [id number] [place] [address]- 8105 Oct, [facility] [address] [id number] [place] [address]- 1100 Oct, [facility] [address] [id number] [place] [address]- 6616 September, [facility] [address] [id number] [place] [address]- 5[address] September, [facility] [address] [id number] [place] [address]- 2753 September, [facility] [address] [id number] [place] [address]- 6363 September, [facility] [address] [id number] [place] [address]- 4933 Aug, [facility] [address] [id number] [place] [address]- 5312 Aug, [facility] [place] [facility] [address] [id number], [place] [address] 7667 Jul, [facility] [place] [facility] [address] [id number] [place] [address]- 6644 Jul, [facility] [place] [facility] [address] [id number] [place] [address]- 9705 Jul, [facility] [place] [facility] [address] [id number] [place] [address]- 7665 Jul, [facility] [place] [facility] [address] [id number], [place] [address] 36[address] Jul, [facility] [address] [id number] [place] [address]- 2796 Jun, [facility] [address] [id number] [place] [address]- 9846 Jun, [facility] [address] [id number] [place] [address]- 9416 Jun, [facility] [address] [id number] [place] [address]- 2595 May, [facility] [address] [id number] [place] [address]- 6245 May, [facility] [address] [id number] [place] [address]- 7637 May, [facility] [address] [id number] [place] [address]- 9142 Apr, [facility] [address] [id number] [place] [address]- 5758 Apr, [facility] [address] [id number] [place] [address]- 7413 Apr, [facility] [address] [facility] [id number] [place] [address]- 1760 Apr, [facility] [address] [id number] [place] [address]- 8250 Apr, [facility] [address] [id number] [place] [address]- 2549 Apr, [facility] [address] [id number] [place] [address]- 9512 Apr, [facility] [address] [id number] [place] [address]- 1389 Apr, [facility] [address] [facility] [id number] [place] [address]- 6266 Mar, [facility] [place] [facility] [address] [id number] [place] [address]- 6296 Mar, [facility] [place] [facility] [address] [id number] [place] [address]- 4056 Mar, [facility] [place] [facility] [address] [id number] [place] [address]- 5696 Mar, [facility] [place] [facility] [address] [id number] [place] [address]- 3236 Mar, [facility] [place] [facility] [address] [id number] [place] [address]- 3994 Mar, [facility] [place] [facility] [address] [id number] [place] [address]- 3496 Mar, [facility] [place] [facility] [address] [id number] [place] [address]- 5529 Mar, [facility] [place] [facility] [address] [id number] [place] [address]- 5731 Mar, [facility] [place] [facility] [address] [id number] [place] [address]- 8375 Mar, [facility] [place] [facility] [address] [id number] [place] [address]- 9765 Feb, [facility] [place] [facility] [address] [id number] [place] [address]- 9957 Feb, [facility] [place] [facility] [address] [id number] [place] [address]- 4649 Feb, [facility] [place] [facility] [address] [id number] [place] [address]- 6013 11 Jan, 2012 [facility] [place] [facility] [address] [id number] [place] [address]- 5106 07 Jan, 2012 [facility] [place] [facility] [address] [id number] [place] [address] 07 Jan, 2012 [facility] [place] [facility] [address] [id number] [place] [address]- 5591 Dec, [facility] [place] [facility] [address] [id number] [place] [address]- 7184 Dec, [facility] [place] [facility] [address] [id number] [place] [address]- 0836 Dec, [facility] [place] [facility] [address] [id number] [place] [address] 2546 Dec, [facility] [place] [facility] [address] [id number] [place] [address]- 1006 Dec, [facility] [place] [facility] [address] [id number] [place] [address]- 2395 Nov, [facility] [place] [facility] [address] [id number] [place] [address]- 0616 Nov, [facility] [place] [facility] [address] [id number] [place] [address]- 0526 Oct, [facility] [place] [facility] [address] [id number] [place] [address]- 4185 September, [facility] [place] [facility] [address] [id number] [place] [address]- 9486 September, [facility] [place] [facility] [address] [id number] [place] [address]- 3276 September, [facility] [place] [facility] [address] [id number] [place] [address]- 7036 September, [facility] [place] [facility] [address] [id number] [place] [address] 2546 September, [facility] [place] [facility] [address] [id number] [place] [address]- 2236 Aug, [facility] [place] [facility] [address] [id number] [place] [address]- 2546 16 Jul, 2011 [facility] [place] [facility] [address] [id number] [place] [address]- 2546 Jul, [facility] [place] [facility] [address] [id number] [place] [address]- 8700 14 Jul, 2011 [facility] [address] [id number] [place] [address]- 9612 14 Jul, 2011 [facility] [place] [facility] [address] [id number] [place] [address] 2546 09 Jul, 2011 [facility] [address] [id number] [place] [address]- 1077 09 Jul, 2011 [facility] [place] [facility] [address] [id number] [place] [address] 2542 08 Jul, 2011 [facility] [address] [id number] [place] [address]- 7169 Jul, [facility] [place] [facility] [address] [id number] [place] [address]- 3376 27 Jun, 2011 [facility] [place] [facility] [address] [facility] [id number] [place] [address]- 9949 16 Jun, 2011 [facility] [place] [facility] [address] [facility] [id number] [place] [address]- 7299 Jun, [facility] [place] [facility] [address] [facility] [id number] [place] [address]- 4938 May, [facility] [address] [facility] [id number] [place] [address]- 9888 Apr, [facility] [place] [facility] [address] [id number] [place] [address]- 0726 Apr, [facility] [place] [facility] [address] [id number] [place] [address]- 2546 Mar, [facility] [place] [facility] [address] [id number] [place] [address]- 5196 Mar, [facility] [place] [facility] [address] [facility] [id number] [place] [address]- 2546 Mar, [facility] [place] [facility] [address] [facility] [id number] [place] [address]- 2409 Feb, [facility] [place] [facility] [address] [id number] [place] [address]- 0390 Feb, [facility] [place] [facility] [address] [id number] [place] [address]- 2292 Feb, [facility] [place] [facility] [address] [id number] [place] [address]- 8357 Apr, [facility] [place] [facility] [address] [id number] [place] [address]- 8670 Apr, [facility] [place] [facility] [address] [id number] [place] [address]- 7360 Mar, [facility] [place] [facility] [address] [id number] [place] [address]- 5172 Mar, [facility] [place] [facility] [address] [id number] [place] [address]- 4041 Mar, [facility] [place] [facility] [address] [id number], [place] [address]- 6631 Mar, [facility] [place] [facility] [address] [id number] [place] [address]- 0295 Mar, [facility] [place] [facility] [address] [id number], [place] [address]- 3425 Feb, [facility] [place] [facility] [address] [id number], [place] [address]- 2477 September, [facility] [place] [facility] [address] [id number], [place] [address]- 4187 Aug, [facility] [place] [facility] [address] [id number], [place] [address]- 8566 Apr, [facility] [place] [facility] [address] [id number], [place] [address]- 6775 15 Apr, 2009 [facility] [place] [facility] [address] [id number], [place] [address]- 8295 18 Mar, 2009 [facility] [place] [facility] [address] [id number], [place] [address]- 2610 Mar, [facility] [place] [id number], [place] [address]- 5259 Mar, [facility] [place] [id number], [place] [address]- 9813 Feb, [facility] [place] [address] [id number], [place] [address]- 5743 Jan, [facility] [place] [id number] [place] [address]236- 0943 Dec, [facility] [place] [id number] [place] [address] 39175- 7289 Nov, [facility] [place] [id number] [place] [address] 18740- 6484 Oct, [facility] [place] [id number] [place] [address] 98769- 6545 Apr, [facility] [place] [id number], [place] [address]- 5924 Apr, [facility] [place] [id number] [place] [address] 64127- 6910 Apr, [facility] [place] [id number], [place] [address]- 3712 Feb, IMMUNIZATIONS No Known Immunizations SOCIAL HISTORY Never Assessed REASON FOR VISIT Controlled Med Refill PLAN OF CARE VITAL SIGNS MEDICATIONS Medication Instructions Dosage Frequency Start Date End Date Duration Status [place] 10-325 MG Orally every 6 hrs 1 tablet as needed 6h Jun, 28 days Active RESULTS No Results PROCEDURES [...]
--- OUTSIDE RECORDS SUMMARY | 2017-12-04 17:50 | XMS REPORT ---
Author Author CEDRIC LAWLER Organization [facility] Address [address] [place] [address] Care Team Providers Care Diamond Merchant Name Role Phone CEDRIC LAWLER Unavailable PROBLEMS Type Condition ICD9-CM Code CUB64-DN Code Onset Dates Condition Status SNOMED Code Problem Nicotine dependence, uncomplicated, unspecified nicotine product type F17.200 Active 79552393 Problem Ab[address] CT lung screening R93.8 Active 847792482 Problem Mild persistent asthma without complication J45.30 Active 574935713 Problem Restless leg syndrome G25.81 Active 16406795 Problem Osteoarthritis of spine with radiculopathy, cervical region M47.22 Active 168902980 Problem RLS (restless legs syndrome) G25.81 Active 41954013 Problem Diabetes mellitus type 2, controlled E11.9 Active 145493151 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 [id number] Problem Hypertension, benign I10 Active 89967589 Problem Essential hypertension I10 Active 35879650 ALLERGIES No Information ENCOUNTERS Encounter Location Date Diagnosis [place] [id number] [place] [address] 54616- 1149 Oct, Skin tags, multiple acquired L91.8 [place] [id number] [place] [address] 04576- 3326 Oct, [address] [id number] [place] [address] 27133- 0781 Oct, Diabetes mellitus type 2, controlled E11.9 and Osteoarthritis of spine with radiculopathy, cervical region M47.22 [address] [id number] [place] [address] 83584- 4076 September, Osteoarthritis of spine with radiculopathy, cervical region M47.22 ; Coughing R05 ; Chronic pruritus L29.9 and Breast cancer screening Z12.31 [place] [address] [id number] [place] [address]- 7083 September, Diabetes mellitus type 2, controlled E11.9 [facility] [address] [facility] [id number] [place] [address] Jul, Chronic cough R05 [facility] [id number] [place] [address]- 6721 Jul, [facility] [id number] [place] [address]- 4497 Jul, Diabetes mellitus type 2, controlled E11.9 [facility] [id number] [place] [address]- 2150 Jul, [facility] [id number] [place] [address]- 2015 Jul, [facility] [id number] [address] 6713 Jun, [facility] [id number] [address] 8391 Jun, Diabetes mellitus type 2, controlled E11.9 [facility] [id number] [address] 1962 Jun, [facility] [address] [id number] [address] 6938 May, [facility] [id number] 23[address] May, Diabetes mellitus type 2, controlled E11.9 [facility] [address] [id number] [address]- 7955 Apr, [facility] [id number] [address] Apr, Pneumonia of right upper lobe due to infectious organism J18.1 [facility] [address] [id number] [address]- 4459 Mar, [place] [id number] [place] [address] 31972- 9932 Mar, [place] [address] [address]- 1845 Mar, [place] [id number] [place] [address] 40127- 2572 Mar, Coughing R05 and SOB (shortness of breath) R06.02 [place] [address] 38077- 6834 Mar, Diabetes mellitus type 2, controlled E11.9 ; Coughing R05 and SOB (shortness of breath) R06.02 [place] [address] 37988- 2583 Feb, [place] [address] 94745- 6513 Feb, [place] [address] 81437- 6270 Jan, Hypertension, benign I10 and RLS (restless legs syndrome) G25.81 [place] [id number] [place] [address] 20774- 7916 Jan, [place] [id number] [place] [address] 72650- 0440 Dec, Pain in unspecified joint M25.50 and Mild persistent asthma without complication J45.30 [place] [id number] [place] [address] 35949- 7851 Dec, [place] [address] 63720- [address] Dec, [address] lung screening R93.8 [place] [id number] [place] [address] 69111- 6778 Dec, [place] [address] 70333- 8507 Nov, Screening for breast cancer Z12.31 [facility] [address] [address] 1913 Nov, [facility] [id number] [place] [address] 40989- 3642 Nov, Essential hypertension I10 [facility] [id number] [place] [address] 36429- 0434 Nov, Essential hypertension I10 [facility] [id number] [place] [address] 99490- 7737 Oct, Acute non-recurrent maxillary sinusitis J01.00 [facility] [id number] [place] [address] 73012- 0706 Oct, [facility] [id number] [place] [address] 06992- 0628 September, Acute non-recurrent maxillary sinusitis J01.00 [facility] [id number] [place] [address] 19320 -7062 September, Low back pain M54.5 [facility] [id number] [place] [address] 91903- 7686 September, [facility] [id number] [place] [address] 71144- 3586 Aug, Acute non-recurrent maxillary sinusitis J01.00 [facility] [id number] [place] [address] [id number] Aug, Dental examination Z01.20 [facility] [id number] [address]- 2343 Aug, [facility] [id number] [place] [address] 00480- 5639 Aug, [facility] [id number] [place] [address] 46150- 4658 Aug, [facility] [id number] [place] [address] 71314- 0461 Aug, Acute sinusitis J01.90 [facility] [address] [address]- 5354 Jul, [facility] [id number] [place] [address] 82119- 7834 Jul, [facility] [id number] [place] [address] 57636- 1634 Jul, [facility] [id number] [place] [address] 20453- 1828 Jul, [facility] [id number] [place] [address] 32923- 3311 Jul, Frequent urination R35.0 and Acute cystitis with hematuria N30.01 [facility] [id number] [place] [address] 76489- 0765 Jul, [facility] [id number] [place] [address] 08721- 8939 Jun, [facility] [id number] [place] [address] 51059- 4772 Jun, Acute sinusitis J01.90 [facility] [id number] [place] [address] 46598- 6756 Jun, Diabetes mellitus type 2, controlled E11.9 ; Cough R05 ; Acute non-recurrent maxillary sinusitis J01.00 and care home (current) use of opiate analgesic Z79.891 [facility] [id number] [address]- 4290 May, [facility] [id number] [place] [address] 24432- 3777 May, [facility] [id number] [place] [address] 42143- 5629 May, [facility] [id number] [place] [address] 99783- 6323 Apr, [facility] [address] [address]- 8981 Apr, [facility] [id number] [place] [address] 24265- 7058 Apr, [facility] [address] [address] -5196 Apr, Acute non-recurrent maxillary sinusitis J01.00 [facility] [id number] [place] [address] 14181- 2947 Apr, [facility] [id number] [place] [address] 78829- 4752 Feb, [facility] [id number] [place] [address] 76623- 3211 Feb, [facility] [id number] [place] [address] 43037- 1018 Feb, [facility] [id number] [place] [address] 14343- 9355 Feb, [facility] [id number] [place] [address] 41178- 7558 Feb, [facility] [id number] [place] [address] 35742- 8147 Feb, [facility] [id number] [place] [address] 37718- 6506 Jan, RLS (restless legs syndrome) G25.81 ; Osteoarthritis of spine with radiculopathy, cervical region M47.22 ; Lumbar neuritis M54.16 and Left sciatic nerve pain M54.32 [facility] [id number] [place] [address] 07625- 4614 Jan, [facility] [id number] [address]- 6653 Dec, [facility] [id number] [place] [address] 92869- 0334 Nov, [facility] [id number] [address]- 5832 Nov, [facility] [id number] [address]- 3055 Nov, [facility] [address] [address]- 8004 Nov, Restless leg syndrome G25.81 and Controlled type 2 diabetes mellitus without complication, without long-term current use of insulin E11.9 [facility] [address] [address]- 5781 Nov, [facility] [id number] [place] [address] 48890- 2103 Oct, [facility] [id number] [place] [address] 94169- 8589 Oct, [facility] [id number] [place] [address] 86054- 2750 Oct, [facility] [id number] [place] [address] 28386- 5457 Oct, 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 lung screening R93.8 [facility] [address] [address]- 7581 Oct, [facility] [id number] [address]- 7062 September, [facility] [address] [address]- 5032 September, Physical exam, annual Z00.00 ; Nicotine dependence, uncomplicated, unspecified nicotine product type F17.200 ; Screening breast examination Z12.39 ; Restless leg syndrome G25.81 and Mild persistent asthma without complication J45.30 [facility] [address] [address]- 4209 September, [facility] [id number] [place] [address] 07957- 4406 September, [facility] [id number] [place] [address] 28465- 3602 Aug, [facility] [id number] [place] [address] 718746- 6138 Jul, Dental examination Z01.20 and Dental caries K02.9 [facility] [id number] [place] [address] 65953- 2079 Jul, [facility] [id number] [place] [address] 26441- 7627 Jul, Diabetes mellitus type 2, controlled E11.9 and Pain in unspecified joint M25.50 [facility] [id number] [place] [address] 03939- 1860 Jul, [facility] [id number] [place] [address] 16160- 4837 Jun, Dental examination Z01.20 [facility] [id number] [place] [address] 68919- 6226 May, [facility] [id number] [place] [address] 28751- 9850 May, [facility] [id number] [place] [address] 04158- 9222 Apr, [facility] [id number] [place] [address] 04604- 4960 Mar, [facility] [id number] [place] [address] 43177- 9907 Mar, Acute sinusitis J01.90 [facility] [id number] [place] [address] 11355- 7515 Feb, [facility] [id number] [place] [address] 50486- 0615 Jan, Flu vaccine need V04.81 [facility] [id number] [place] [address] 08722- 2648 Jan, [facility] [address] [address]- 3497 Jan, Pain in joint, site unspecified 719.40 [facility] [address] [address]- 3931 Dec, Pain in joint, site unspecified 719.40 [facility] [id number] [place] [address] 93500- 4382 Dec, [facility] [id number] [place] [address] 63839- 7911 Dec, [facility] [id number] [place] [address] 20333- 9849 Dec, Sciatica 724.3 ; Restless legs syndrome [RLS] 333.94 and Encounter for smoking cessation counseling V65.42 [facility] [id number] [place] [address] 66614- 1056 Dec, Nicotine dependence 305.1 [facility] [id number] [place] [address] 50708- 8165 Nov, [facility] [id number] [place] [address] 57403- 7495 Oct, [facility] [address] [address]- 4665 Oct, [facility] [address] [address]- 0144 September, [facility] [address] [address]- 7077 Aug, [facility] [id number] [place] [address] 93656- 7354 Aug, [facility] [address] [address]- 0881 Jul, [facility] [id number] [place] [address], [place] [address]- 4373 Jul, [facility] [place] [facility] [address] [id number] [place] [address]- 7347 Jul, [facility] [place] [facility] [address] [id number] [place] [address]- 3497 Jun, [facility] [place] [facility] [address] [id number] [place] [address]- 1398 Jun, [facility] [place] [facility] [address] [id number] [place] [address]- 9691 Jun, [facility] [place] [facility] [address] [id number] [place] [address]- 1998 Jun, [facility] [place] [facility] [address] [id number] [place] [address]- 0613 May, [facility] [place] [facility] [address] [id number] [place] [address]- 6901 May, [facility] [place] [facility] [address] [id number] [place] [address]- 9197 May, [facility] [place] [facility] [address] [id number] [place] [address]- 4622 May, [facility] [place] [facility] [address] [id number] [place] [address]- 3816 May, [facility] [place] [facility] [address] [id number] [place] [address]- 8297 May, [facility] [place] [facility] [address] [id number] [place] [address]- 7964 May, [facility] [place] [facility] [address] [id number] [place] [address]- 7500 Apr, [facility] [place] [facility] [address] [id number] [place] [address]- 9702 Apr, [facility] [place] [facility] [address] [id number] [place] [address]- 2490 Apr, [facility] [place] [facility] [address] [id number] [place] [address]- 7035 Apr, [facility] [place] [facility] [address] [id number] [place] [address]- 1657 Apr, [facility] [place] [facility] [address] [id number] [place] 1347 Apr, [facility] [place] [facility] [address] [id number] [place] 7762 Apr, [facility] [place] [facility] [address] [id number] [place] 7320 Apr, [facility] [place] [facility] [address] [id number] [place] [address]- 6253 Apr, [facility] [place] [facility] [address] [id number] [place] [address]- 8560 Apr, [facility] [place] [facility] [address] [id number] [place] [address]- 4490 Mar, [facility] [place] [facility] [address] [id number] [place] [address]- 3157 Mar, [facility] [place] [facility] [address] [id number] [place] [address]- 3087 Mar, [facility] [place] [facility] [address] [id number] [place] [address]- 2717 Mar, [facility] [place] [facility] [address] [id number] [address]- 6447 Mar, [facility] [place] [facility] [address] [id number] [place] [address]- 6585 Mar, [facility] [place] [facility] [address] [id number] [place] 0668 Feb, [facility] [place] [facility] [address] [id number] 8894 Feb, [facility] [place] [facility] [address] [id number] [address]- 5954 Feb, [facility] [place] [facility] [address] [id number] [place] [address]- 0671 Feb, [facility] [place] [facility] [address] [id number] [place] [address]- 1071 Feb, [facility] [place] [facility] [address] [id number] [place] [address]- 2682 Feb, [facility] [place] [facility] [address] [id number] [place] [address]- 9742 Jan, [facility] [place] [facility] [address] [id number] [place] [address]- 6973 Jan, [facility] [place] [facility] [address] [id number] [place] [address]- 8012 Jan, [facility] [place] [facility] [address] [id number] [place] [address]- 8477 Jan, [facility] [place] [facility] [address] [id number] [place] [address]- 3156 Dec, [facility] [place] [facility] [address] [id number] [place] [address]- 9493 Dec, [facility] [place] [facility] [address] [id number] [place] [address]- 0114 Dec, [facility] [place] [facility] [address] [id number] [place] [address]- 3678 Dec, [facility] [place] [facility] [address] [id number] [place] [address]- 1999 Dec, [facility] [place] [facility] [address] [id number] [place] [address]- 9212 Nov, [facility] [place] [facility] [address] [id number] [place] [address]- 5754 Nov, [facility] [place] [facility] [address] [id number] [place] [address]- 2378 15 Nov, 2013 [facility] [place] [facility] [address] [id number] [place] [address]- 8174 15 Nov, 2013 [facility] [place] [facility] [address] [id number] [place] [address]- 0994 15 Nov, 2013 [facility] [place] [facility] [address] [id number] [place] [address]- 6355 15 Nov, 2013 [facility] [place] [facility] [address] [id number] [place] [address]- 1463 16 Oct, 2013 [facility] [place] [facility] [address] [id number] [place] [address]- 5327 16 Oct, 2013 [facility] [place] [facility] [address] [id number] [place] [address]- 0032 September, [facility] [place] [facility] [address] [id number] [place] [address]- 8249 16 Sep, 2013 [facility] [place] [facility] [address] [id number] [place] [address]- 3267 14 Sep, 2013 [facility] [place] [facility] [address] [id number] [place] [address]- 8021 14 Sep, 2013 [facility] [place] [facility] [address] [id number] [place] [address]- 3086 14 Aug, 2013 [facility] [place] [facility] [address] [id number] [place] [address]- 3280 14 Aug, 2013 [facility] [place] [facility] [address] [id number] [place] [address]- 9847 17 Jul, 2013 [facility] [place] [facility] [address] [id number] [place] [address]- 7697 17 Jul, 2013 [facility] [place] [facility] [address] [id number] [place] [address] 14 Jul, 2013 [facility] [place] [facility] [address] [id number] [place] [address] 14 Jul, 2013 [facility] [place] [facility] [address] [id number] [place] [address] Jun, [facility] [place] [facility] [address] [id number] [place] [address] Jun, [facility] [place] [facility] [address] [id number] [place] [address] Jun, [facility] [place] [facility] [address] [id number] [place] [address] Jun, [facility] [place] [facility] [address] [id number] [place] [address] May, [facility] [place] [facility] [address] [id number] [place] [address] May, [facility] [place] [facility] [address] [id number] [place] [address] May, [facility] [place] [facility] [address] [id number] [place] [address] May, [facility] [place] [facility] [address] [id number] [place] [address] Apr, [facility] [place] [facility] [address] [id number] [place] [address]- [address] Apr, [facility] [place] [facility] [address] [id number] [place] [address] Apr, [facility] [place] [facility] [address] [id number] [place] [address]- [address] Mar, [facility] [place] [facility] [address] [id number] [address] Mar, [facility] [place] [facility] [address] [id number] [place] [address] Mar, [facility] [place] [facility] [address] [id number] [place] [address] Mar, [facility] [place] [facility] [address] [id number] [place] [address] Feb, [facility] [place] [facility] [address] [id number] [place] [address]- [address] Feb, 2012 [facility] [address] [id number] [place] [address] Feb, 2012 [facility] [place] [facility] [address] [id number] [place] [address]- [address] Feb, 2012 [facility] [address] [id number] [place] [address]- [address] Feb, 2012 [facility] [place] [facility] [address] [id number] [place] [address]- [address] Feb, 2012 [facility] [address] [id number] [place] [address]- [address] Feb, [facility] [place] [facility] [address] [id number] [place] [address] Feb, [facility] [address] [id number] [place] [address] Jan, [facility] [address] [id number] [place] [address] Jan, [facility] [place] [facility] [address] [id number] [place] [address]- [address] Jan, [facility] [address] [id number] [place] [address] Dec, [facility] [place] [facility] [address] [id number] [place] [address]- [address] Dec, [facility] [place] [facility] [address] [id number] [place] [address] Nov, [facility] [place] [facility] [address] [id number] [place] [address] Nov, [facility] [place] [facility] [address] [id number] [place] [address] Nov, [facility] [place] [facility] [address] [id number] [place] [address] Nov, [facility] [place] [facility] [address] [id number] [place] [address] Oct, [facility] [address] [id number] [place] [address] Oct, [facility] [address] [id number] [place] [address] Oct, [facility] [address] [id number] [place] [address] September, [facility] [address] [id number] [place] [address] September, [facility] [address] [id number] [place] [address] September, [facility] [address] [id number] [place] [address] September, [facility] [address] [id number] [place] [address] Aug, [facility] [address] [id number] [place] [address] Aug, [facility] [address] [address] [id number] [place] [address] Jul, [facility] [place] [facility] [address] [id number] [place] [address] Jul, [facility] [place] [facility] [address] [id number] [address] Jul, [facility] [place] [facility] [address] [id number] [place] [address] Jul, [facility] [place] [facility] [address] [id number] [place] [address] Jul, [facility] [place] [facility] [address] [id number] [address] Jun, [facility] [place] [facility] [address] [id number][place] [address] Jun, [facility] [address] [id number] [place] [address] Jun, [facility] [address] [id number] [place] [address] May, [facility] [address] [id number] [place] [address] May, [facility] [address] [id number] [place] [address] May, [facility] [address] [id number] [place] [address] Apr, [facility] [address] [id number] [place] [address] Apr, [facility] [address] [facility] [id number] [place] [address] Apr, [facility] [address] [id number] [place] [address] Apr, [facility] [address] [id number] [place] [address] Apr, [facility] [address] [facility] [id number] [place] [address]698 Apr, [facility] [address] [id number] [place] [address] Apr, [facility] [place] [facility] [address] [id number] [place] [address] 2857 Apr, [facility] [place] [facility] [address] [id number] [place] [address] 31[address] Mar, [facility] [place] [facility] [address] [id number] [place] [address] Mar, [facility] [address] [facility] [id number] [place] [address] Mar, [facility] [place] [facility] [address] [id number] [place] [address] Mar, [facility] [place] [facility] [address] [id number] [place] [address] Mar, [facility] [place] [facility] [address] [id number] [place] [address] Mar, [facility] [place] [facility] [address] [id number] [place] [address] Mar, [facility] [place] [facility] [address] [id number] [place] [address] 8831 Mar, [facility] [place] [facility] [address] [id number] [place] [address]36 Mar, [facility] [place] [facility] [address] [id number] [place] [address] 76[address] Mar, [facility] [place] [facility] [address] [id number] [place] [address] 74[address] Feb, [facility] [place] [facility] [address] [id number] [place] [address]93 Feb, [facility] [place] [facility] [address] [id number] [place] [address] 94[address] Feb, [facility] [place] [facility] [address] [id number] [place] [address] Jan, [facility] [place] [facility] [address] [id number] [place] [address] 07 Jan, 2012 [facility] [place] [facility] [address] [id number] [place] [address] 07 Jan, 2012 [facility] [place] [facility] [address] [id number] [place] [address] 47[address] Dec, [facility] [place] [facility] [address] [id number] [place] [address] 15 Dec, 2011 [facility] [place] [facility] [address] [id number] [place] [address]- [address]234 Dec, [facility] [place] [facility] [address] [id number] [place] [address] 59[address] Dec, [facility] [place] [facility] [address] [id number] [place] [address] 4196 Dec, [facility] [place] [facility] [address] [id number] [place] [address] 4316 Nov, [facility] [place] [facility] [address] [id number] [place] [address] 6516 Nov, [facility] [place] [facility] [address] [id number] [place] [address] Oct, [facility] [place] [facility] [address] [id number] [place] [address] September, [facility] [place] [facility] [address] [id number] [place] [address] 3276 September, [facility] [place] [facility] [address] [id number] [place] [address]221 September, [facility] [place] [facility] [address] [id number] [place] [address]26 September, [facility] [place] [facility] [address] [id number] [place] [address] 8246 September, [facility] [place] [facility] [address] [id number] [place] [address]- 7566 Aug, [facility] [place] [facility] [address] [id number] [place] [address] 2546 16 Jul, 2011 [facility] [place] [facility] [address] [id number] [place] [address]- 3626 15 Jul, 2011 [facility] [place] [facility] [address] [id number] [place] [address]- 0896 14 Jul, 2011 [facility] [place] [facility] [address] [id number] [place] [address]- 7748 14 Jul, 2011 [facility] [place] [facility] [address] [id number] [place] [address]- 6814 09 Jul, 2011 [facility] [place] [facility] [address] [id number] [place] [address]- 0232 Jul, [facility] [place] [facility] [address] [id number] [place] [address]- 1626 Jul, [facility] [place] [facility] [address] [id number] [place] [address] 8070 Jul, [facility] [place] [facility] [address] [id number] [place] [address] 2213 Jun, [facility] [place] [facility] [address] [id number] [place] [address] 4344 Jun, [facility] [place] [facility] [address] [facility] [id number] [place] [address] 0403 Jun, [facility] [place] [facility] [address] [facility] [id number] [place] [address]- 8363 May, [facility] [place] [facility] [address] [id number] [place] [address]- 0614 Apr, [facility] [place] [facility] [address] [facility] [id number] [place] [address]- 2510 Apr, [facility] [place] [facility] [address] [facility] [id number] [place] [address]- 0985 Mar, [facility] [place] [facility] [address] [id number] [place] [address]- 9301 Mar, [facility] [place] [facility] [address] [id number] [place] [address]- 9337 Mar, [facility] [place] [facility] [address] [id number] [place] [address]- 8174 Feb, [facility] [place] [facility] [address] [id number] [place] [address]- 4136 Feb, [facility] [place] [facility] [address] [id number] [place] [address] Feb, [facility] [place] [facility] [address] [id number] [place] [address]- 1514 Apr, [facility] [place] [facility] [address] [id number] [place] [address]- 8681 Apr, [facility] [place] [facility] [address] [id number] [place] [address]- 9823 Mar, [facility] [place] [facility] [address] [id number] [place] [address]- 7425 Mar, [facility] [place] [facility] [address] [id number] [place] [address]- 7286 Mar, [facility] [place] [facility] [address] [id number] [place] [address]- 3947 Mar, [facility] [place] [facility] [address] [id number] [place] [address]- 0516 Mar, [facility] [place] [facility] [address] [id number], [place] [address]- 9828 Feb, [facility] [place] [facility] [address] [id number] [place] [address]- 6385 September, [facility] [place] [facility] [address] [facility] [id number], [place] [address]- 3416 Aug, [facility] [place] [facility] [address] [id number], [place] [address]- 2778 Apr, [facility] [place] [facility] [address] [id number], [place] [address]- 2104 15 Apr, 2009 [facility] [place] [facility] [address] [id number], [place] [address]- 4154 18 Mar, 2009 [facility] [place] [facility] [address] [id number], [place] [address]- 7758 Mar, [facility] [place] [facility] [address] [id number], [place] [address]- 9760 18 Mar, 2009 [facility] [place] [facility] [address] [id number], [place] [address]- 3586 Feb, [facility] [id number] [address] Jan, [facility] [id number] [address] Dec, [facility] [id number] [address] 270[address] Nov, [facility] [id number] [place] [address]- [address]856 Oct, [facility] [id number] [place] [address]- 5766 Apr, [facility] [id number] [place] [address]- 7666 Apr, [facility] [id number] [address]- [address] Apr, [facility] [id number] [address]- 1426 Feb, IMMUNIZATIONS No Known Immunizations SOCIAL HISTORY Never Assessed REASON FOR VISIT Controlled Med Refill PLAN OF CARE VITAL SIGNS MEDICATIONS Medication Instructions Dosage Frequency Start Date End Date Duration Status Fortine 10-325 MG Orally every 6 hrs 1 tablet as needed 6h May, 28 days Active RESULTS No Results PROCEDURES [...]
--- OUTSIDE RECORDS SUMMARY | 2017-12-04 17:50 | XMS REPORT ---
Author Author CEDRIC LAWLER Organization [employer] Address Unknown Phone Unavailable Care Team Providers Care Applications Scientist Name Role Phone CEDRIC LAWLER CP Unavailable [...] Start Date End Date Status Dosage Hydrocodone-Acetaminophen [facility] [address]-95 10-325 MG Orally every 6 hrs July 19, 2014 take 1 tablet Results No Known Results Summary Purpose [employer] Submission
--- OUTSIDE RECORDS SUMMARY | 2017-12-04 17:50 | XMS REPORT ---
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 Assessment Restless leg syndrome G25.81 Active Assessment Controlled type 2 diabetes mellitus without complication, without long-term current use of insulin E11.9 Active Problem Restless leg syndrome G25.81 Active Problem Mild persistent asthma without complication J45.30 Active Medications Medication Code System Code Instructions Start Date End Date Status Dosage Advair Diskus [facility] 76968667979 250/50 INHALE ONE DOSE BY MOUTH IN THE MORNING AND ONE IN THE EVENING APPROXIMATELY 12 HOURS APART Chlorpheniramine Maleate [facility] [address]-64 8 mg Feb 01, 2014 1 capsule by Oral route 2 times per day PRN Atenolol [facility] 45013513505 100MG TAKE ONE TABLET BY MOUTH ONCE DAILY Requip XL [facility] [address]-53 2 MG Orally Once a day September 28, 2015 1 tablet Albuterol Sulfate HFA [facility] [address]-77 108 (90 Base) MCG/ACT Inhalation every 4 hrs September 28, 2015 2 puffs as needed Parafon Forte DSC [facility] 71776857190 500MG Orally 2 times a day 1 tablet Pantoprazole Sodium [facility] 03061866948 40MG TAKE ONE TABLET BY MOUTH ONCE DAILY Hydrocodone-Acetaminophen [facility] [address]-24 10-325 MG Orally every 6 hrs July 19, 2014 take 1 tablet Glucometer ND 0 1 2 times a day. with strips and lancets November 28, 2015 test blood sugar Protonix [facility] [address]-73 40 mg Apr 23, 2014 1 tablet by Oral route 1 time per day Procedures Procedure Coding System Code Date GLYCATED HEMOGLOBIN TEST CPT-4 26752 November 28, 2015 Office Visit, Est Pt., Level 3 CPT-4 63444 November 28, 2015 Vital Signs Date/Time: November 28, 2015 Cardiac Monitoring Heart Rate 76 bpm Weight 161.7 lbs Height 61 in Blood Pressure Diastolic 86 mmHg Blood Pressure Systolic 130 mmHg Results No Known Results Summary Purpose [employer] Submission
--- OUTSIDE RECORDS SUMMARY | 2017-12-04 17:50 | XMS REPORT ---
Author CEDRIC Peñaloza Organization [employer] Address Unknown Phone Unavailable Care Team Providers Care Automotive Worker Name Role Phone CEDRIC LAWLER CP [...]
--- OUTSIDE RECORDS SUMMARY | 2017-12-04 17:50 | XMS REPORT ---
Author Author CEDRIC LAWLER Organization [facility] Address [address] [place] [address] Care Team Providers Care Chip Bin Conveyor Tender Name Role Phone CEDRIC LAWLER Unavailable PROBLEMS Type Condition ICD9-CM Code VUR28-UU Code Onset Dates Condition Status SNOMED Code Problem Restless leg syndrome G25.81 Active 64008323 Problem Essential hypertension I10 Active 20111956 Problem Diabetes mellitus type 2, controlled E11.9 Active 363230863 Problem Mild persistent asthma without complication J45.30 Active 306055111 Problem Nicotine dependence, uncomplicated, unspecified nicotine product type F17.200 Active 50261894 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
--- OUTSIDE RECORDS SUMMARY | 2017-12-04 17:50 | XMS REPORT ---
Author CEDRIC Peñaloza Organization [employer] Address Unknown Phone Unavailable Care Team Providers Care Kitchenhand Name Role Phone CEDRIC LALWER CP Unavailable Allergies No Known Allergies Problems [...]
--- OUTSIDE RECORDS SUMMARY | 2017-12-04 17:51 | XMS REPORT ---
Author Author CEDRIC LAWLER Organization [facility] Address [address] [place] [address] Care Team Providers Care Didactic Instructor Name Role Phone CEDRIC LAWLER Unavailable PROBLEMS Type Condition ICD9-CM Code UII90-OF Code Onset Dates Condition Status SNOMED Code Problem Nicotine dependence, uncomplicated, unspecified nicotine product type F17.200 Active 96466297 Problem Ab[address] CT lung screening R93.8 Active 660281954 Problem Mild persistent asthma without complication J45.30 Active 209095281 Problem Restless leg syndrome G25.81 Active 65077042 Problem Osteoarthritis of spine with radiculopathy, cervical region M47.22 Active 831295375 Problem RLS (restless legs syndrome) G25.81 Active 57836356 Problem Diabetes mellitus type 2, controlled E11.9 Active 710250233 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 643111255356200 Problem Hypertension, benign I10 Active 25246696 Problem Essential hypertension I10 Active 60596385 ALLERGIES Substance Reaction Event Type Date Status Latex rash Drug Allergy Apr, Active Lyrica nightmares Drug Allergy Apr, Active Codeine Phosphate nausea and vomiting Drug Allergy Apr, Active ENCOUNTERS Encounter Location Date Diagnosis [facility] [id number] [address] Oct, [facility] [address] [address] Oct, [facility] [id number] [place] [address] 87115- 4730 Oct, Diabetes mellitus type 2, controlled E11.9 and Osteoarthritis of spine with radiculopathy, cervical region M47.22 [facility] [address] [address] September, Osteoarthritis of spine with radiculopathy, cervical region M47.22 ; Coughing R05 ; Chronic pruritus L29.9 and Breast cancer screening Z12.31 [facility] [address] [address] September, Diabetes mellitus type 2, controlled E11.9 [facility] [address], [place] [address] Jul, Chronic cough R05 [facility] [id number] [address] 5[address] Jul, [facility] [address] [address] 9815 Jul, Diabetes mellitus type 2, controlled E11.9 [facility] [address] [address] 8801 Jul, [facility] [address], [place] [address] 4882 Jul, [facility] [address], [place] [address] 0861 Jun, [facility] [address], [place] [address] 1523 Jun, Diabetes mellitus type 2, controlled E11.9 [facility] [address], [place] [address] 5690 Jun, [facility] [address], [place] [address] 4926 May, [facility] [address], [place] [address] 9857 May, Diabetes mellitus type 2, controlled E11.9 [facility] [address] [address] Apr, [facility] [address] [address] Apr, Pneumonia of right upper lobe due to infectious organism J18.1 [facility] [id number] [place] [address] 42731- 4133 Mar, [address] [address] [address]- 8092 Mar, [facility] [id number] [place] [address] 23963- 8946 Mar, [facility] [address] 13727- 8874 Mar, Coughing R05 and SOB (shortness of breath) R06.02 [facility] [address] [address]87- 5397 Mar, Diabetes mellitus type 2, controlled E11.9 ; Coughing R05 and SOB (shortness of breath) R06.02 [facility] [id number] [place] [address] 52242- 6432 Feb, [facility] [address] 17380- 8954 Feb, [facility] [id number] [place] [address] 99668- 4690 Jan, Hypertension, benign I10 and RLS (restless legs syndrome) G25.81 [facility] [id number] [place] [address] 02228- 9885 Jan, [facility] [id number] [place] [address] 11132- 3156 Dec, Pain in unspecified joint M25.50 and Mild persistent asthma without complication J45.30 [facility] [id number] [place] [address] 19485- 0873 Dec, [facility] [id number] [place] [address] 60729- [address] Dec, [address] lung screening R93.8 [facility] [id number] [place] [address] 63914- 2845 Dec, [facility] [address] [facility] [id number] [address] Nov, Screening for breast cancer Z12.31 [facility] [address] [place] [address] 88107- 7334 Nov, [facility] [address] [place] [address] 55391- 4013 Nov, Essential hypertension I10 [facility] [id number] [place] [address] 62744- 6402 Nov, Essential hypertension I10 [facility] [id number] [place] [address] 52737- 9726 Oct, Acute non-recurrent maxillary sinusitis J01.00 [facility] [address] [place] [address] 63222- 8679 Oct, [facility] [id number] [place] [address] 08317- 2626 September, Acute non-recurrent maxillary sinusitis J01.00 [facility] [address] [place] [address] 65169 -4095 September, Low back pain M54.5 [facility] [address] [place] [address] 71879- 1130 September, [facility] [address] [place] [address] 27658- 3271 Aug, Acute non-recurrent maxillary sinusitis J01.00 [facility] [address] [id number] [id number] Aug, Dental examination Z01.20 [facility] [address] [place] [address] 83397- 8176 Aug, [facility] [address] [place] [address] 29078- 2214 Aug, [facility] [address] [place] [address] 70493- 1501 Aug, [facility] [address], [place] [address] 9247 Aug, Acute sinusitis J01.90 [facility] [id number] [place] [address] 28405- 0773 Jul, [facility] [id number] [place] [address] 16357- 0468 Jul, [facility] [id number] [place] [address] 09812- 3376 Jul, [facility] [id number] [place] [address] 72083- 3850 Jul, [facility] [id number] [place] [address] 64777- 0554 Jul, Frequent urination R35.0 and Acute cystitis with hematuria N30.01 [facility] [id number] [place] [address] 81090- 1674 Jul, [facility] [id number] [place] [address] 11031- 2416 Jun, [facility] [id number] [place] [address] 15468- 7410 Jun, Acute sinusitis J01.90 [facility] [id number] [place] [address] 74998- 7382 Jun, Diabetes mellitus type 2, controlled E11.9 ; Cough R05 ; Acute non-recurrent maxillary sinusitis J01.00 and jail (current) use of opiate analgesic Z79.891 [facility] [id number] [place] [address] 46045- 0694 May, [facility] [id number] [place] [address] 70138- 4064 May, [facility] [id number] [place] [address] 28792- 8743 May, [facility] [address], [place] [address]- 2139 Apr, [facility] [id number] [place] [address] 25893- 7468 Apr, [facility] [address], [place] [address]- 4003 Apr, [facility] [id number] [place] [address] 49466 -0912 Apr, Acute non-recurrent maxillary sinusitis J01.00 [facility] [id number] [place] [address] 46660- 2264 Apr, [facility] [id number] [place] [address] 47903- 2012 Feb, [facility] [id number] [place] [address] 80106- 3761 Feb, [facility] [id number] [place] [address] 45822- 2820 Feb, [facility] [id number] [place] [address] 86567- 9421 Feb, [facility] [id number] [address]- 9687 Feb, [facility] [id number] [place] [address] 47553- 1353 Feb, [facility] [id number] [place] [address] 85981- 7356 Jan, RLS (restless legs syndrome) G25.81 ; Osteoarthritis of spine with radiculopathy, cervical region M47.22 ; Lumbar neuritis M54.16 and Left sciatic nerve pain M54.32 [facility] [address], [place] [address]- 3222 Jan, [facility] [id number] [place] [address] 11645- 4297 Dec, [facility] [address], [place] [address]- 8168 Nov, [facility] [address] [place] [address] 45969- 9007 Nov, [facility] [address] [place] [address] 16424- 9332 Nov, [facility] [id number] [place] [address] 65673- 7535 Nov, Restless leg syndrome G25.81 and Controlled type 2 diabetes mellitus without complication, without long-term current use of insulin E11.9 [facility] [id number] [place] [address] 45934- 5024 Nov, [facility] [id number] [place] [address] 03214- 3686 Oct, [facility] [id number] [place] [address] 51441- 6945 Oct, [facility] [address] [place] [address] 76406- 6941 Oct, [facility] [id number] [place] [address] 45151- 2722 Oct, 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 lung screening R93.8 [facility] [address] [place] [address] 03835- 3903 Oct, [facility] [address], [place] [address]- 3839 September, [facility] [address] [place] [address] 90807- 2747 September, Physical exam, annual Z00.00 ; Nicotine dependence, uncomplicated, unspecified nicotine product type F17.200 ; Screening breast examination Z12.39 ; Restless leg syndrome G25.81 and Mild persistent asthma without complication J45.30 [facility] [id number] [place] [address] 12865- 3988 September, [facility] [address], [place] [address]- 5293 September, [facility] [address] 0710 Aug, [facility] [address], [place] [address]- 4462 Jul, Dental examination Z01.20 and Dental caries K02.9 [facility] [id number] [place] [address] 40569- 8825 Jul, [facility] [id number] [place] [address] 552976- 6047 Jul, Diabetes mellitus type 2, controlled E11.9 and Pain in unspecified joint M25.50 [facility] [id number] [place] [address] 25523- 1299 Jul, [facility] [id number] [address]- 8470 Jun, Dental examination Z01.20 [facility] [address], [place] [address]- 6945 May, [facility] [address] [address]- 5696 May, [facility] [address] [address]- 7954 Apr, [facility] [address], [place] [address]- 6807 Mar, [facility] [address] [place] [address] 282465- 0057 Mar, Acute sinusitis J01.90 [facility] [address], [place] [address]- 6616 Feb, [facility] [address], [place] [address]- 2927 Jan, Flu vaccine need V04.81 [facility] [address], [place] [address]- 5627 Jan, [facility] [id number] [place] [address] 781750- 3755 Jan, Pain in joint, site unspecified 719.40 [facility] [id number] [place] [address] 98676- 7844 Dec, Pain in joint, site unspecified 719.40 [facility] [address] [place] [address] 82610- 9364 Dec, [facility] [id number] [place] [address] 73108- 5727 Dec, [facility] [id number] [place] [address] 70997- 6965 Dec, Sciatica 724.3 ; Restless legs syndrome [RLS] 333.94 and Encounter for smoking cessation counseling V65.42 [facility] [address] [address]- 6475 Dec, Nicotine dependence 305.1 [facility] [address] [place] [address] 23436- 2924 Nov, [facility] [address], [place] [address]- 3739 Oct, [facility] [address], [place] [address]- 7727 Oct, [facility] [address] [place] [address] 08940- 4988 September, [facility] [id number] [place] [address] 57363- 9589 Aug, [facility] [address] [address]- 3888 Aug, [facility] [id number] [place] [address] 31174- 5129 Jul, [facility] [place] [facility] [address] [id number] [place] [address]- 5196 Jul, [facility] [place] [facility] [address] [id number] [place] [address]- 6819 Jul, [facility] [place] [facility] [address] [id number] [place] [address]- 2236 Jun, [facility] [place] [facility] [address] [id number] [place] [address]- 1329 Jun, [facility] [place] [facility] [address] [id number] [place] [address]- 3982 Jun, [facility] [place] [facility] [address] [id number] [place] [address]- 7001 Jun, [facility] [place] [facility] [address] [id number] [place] [address]- 6000 May, [facility] [place] [facility] [address] [id number] [place] [address]- 6101 May, [facility] [place] [facility] [address] [id number] [place] [address]- 4498 May, [facility] [place] [facility] [address] [facility] [id number] [place] [address]- 8406 May, [facility] [place] [facility] [address] [id number] [place] [address]- 2599 May, [facility] [place] [facility] [address] [id number] [place] [address]- 6292 May, [facility] [place] [facility] [address] [id number] [place] [address]- 4815 May, [facility] [place] [facility] [address] [id number] [place] [address]- 4154 Apr, [facility] [place] [facility] [address] [id number] [place] [address]- 6907 Apr, [facility] [place] [facility] [address] [id number] [place] [address]- 9908 Apr, [facility] [place] [facility] [address] [id number] [place] [address]- 1028 Apr, [facility] [place] [facility] [address] [id number] [place] 9413 Apr, [facility] [place] [facility] [address] [id number] [place] [address]- 8612 Apr, [facility] [place] [facility] [address] [id number] [place] [address]- 6641 Apr, [facility] [place] [facility] [address] [id number] [place] [address]- 2451 Apr, [facility] [place] [facility] [address] [id number] [place] [address]- 8226 Apr, [facility] [place] [facility] [address] [id number] [place] [address]- 3663 Apr, [facility] [place] [facility] [address] [id number] [place] [address]- 6204 Mar, [facility] [place] [facility] [address] [id number] [place] [address]- 5845 Mar, [facility] [place] [facility] [address] [id number] [place] [address]- 4924 Mar, [facility] [place] [facility] [address] [id number] [place] [address]- 5593 Mar, [facility] [place] [facility] [address] [id number] [place] [address]- 4911 Mar, [facility] [place] [facility] [address] [id number] [place] [address]- 1180 Mar, [facility] [place] [facility] [address] [id number] [place] [address]- 0303 Feb, [facility] [place] [facility] [address] [id number] [place] [address]- 0642 15 Feb, 2014 [facility] [place] [facility] [address] [id number] [place] [address]- 3573 Feb, [facility] [place] [facility] [address] [id number] [place] [address]- 6877 Feb, [facility] [place] [facility] [address] [id number] [place] [address]- 0537 Feb, [facility] [place] [facility] [address] [id number] [place] [address]- 9023 Feb, [facility] [place] [facility] [address] [id number] [place] [address]- 3750 Jan, [facility] [place] [facility] [address] [id number] [place] [address]- 4079 Jan, [facility] [place] [facility] [address] [id number] [place] [address]- 0135 Jan, [facility] [place] [facility] [address] [id number] [place] [address]- 8132 Jan, [facility] [place] [facility] [address] [id number] [place] [address]- 6788 Dec, [facility] [place] [facility] [address] [id number] [place] [address]- 8427 Dec, [facility] [place] [facility] [address] [id number] [place] [address]- 3730 Dec, [facility] [place] [facility] [address] [id number] [place] [address]- 7824 Dec, [facility] [place] [facility] [address] [id number] [place] [address]- 9400 Dec, [facility] [place] [facility] [address] [id number] [place] [address]- 7821 Nov, [facility] [place] [facility] [address] [id number] [place] [address]- 3255 Nov, [facility] [place] [facility] [address] [id number] [place] [address]- 7068 15 Nov, 2013 [facility] [address] [id number] [place] [address]- 7471 15 Nov, 2013 [facility] [place] [facility] [address] [id number] [place] [address]- 9791 15 Nov, 2013 [facility] [address] [id number] [place] [address]- 4638 15 Nov, 2013 [facility] [place] [facility] [address] [id number] [place] [address]- 9758 16 Oct, 2013 [facility] [place] [facility] [address] [id number] [place] [address]- 0872 16 Oct, 2013 [facility] [place] [facility] [address] [id number] [place] [address] 16 Sep, 2013 [facility] [place] [facility] [address] [id number] [place] [address] 16 Sep, 2013 [facility] [address] [id number] [place] [address] 14 Sep, 2013 [facility] [place] [facility] [address] [id number] [place] [address] 14 Sep, 2013 [facility] [address] [id number] [place] [address] 14 Aug, 2013 [facility] [place] [facility] [address] [id number] [place] [address] 14 Aug, 2013 [facility] [place] [facility] [address] [id number] [place] [address] 17 Jul, 2013 [facility] [place] [facility] [address] [id number] [place] [address] 17 Jul, 2013 [facility] [place] [facility] [address] [id number] [place] [address] 14 Jul, 2013 [facility] [place] [facility] [address] [id number] [place] [address] Jul, [facility] [address] [id number] [place] [address] Jun, [facility] [place] [facility] [address] [id number] [place] [address] Jun, [facility] [place] [facility] [address] [id number] [place] [address] Jun, [facility] [place] [facility] [address] [id number] [place] [address] Jun, [facility] [place] [facility] [address] [id number] [place] [address] May, [facility] [place] [facility] [address] [id number] [place] [address] May, [facility] [place] [facility] [address] [id number] [place] [address] May, [facility] [place] [facility] [address] [id number] [place] [address] May, [facility] [place] [facility] [address] [id number] [place] [address] Apr, [facility] [place] [facility] [address] [id number] [place] [address] Apr, [facility] [place] [facility] [address] [id number] [place] [address] Apr, [facility] [place] [facility] [address] [id number] [address] Mar, [facility] [place] [facility] [address] [id number] [place] [address] Mar, [facility] [place] [facility] [address] [id number] [place] [address] Mar, [facility] [place] [facility] [address] [id number] [place] [address] Mar, [facility] [place] [facility] [address] [id number] [place] [address] Feb, 2012 [facility] [place] [facility] [address] [id number] [place] [address] Feb, 2012 [facility] [place] [facility] [address] [id number] [place] [address] Feb, 2012 [facility] [place] [facility] [address] [id number] [place] [address] 18 Feb, 2012 [facility] [place] [facility] [address] [id number] [place] [address] Feb, 2012 [facility] [place] [facility] [address] [id number] [place] [address] Feb, 2012 [facility] [place] [facility] [address] [id number] [place] [address] Feb, 2012 [facility] [place] [facility] [address] [id number] [place] [address] Feb, 2012 [facility] [place] [facility] [address] [id number] [place] [address] Jan, [facility] [place] [facility] [address] [id number] [place] [address] Jan, [facility] [place] [facility] [address] [id number] [place] [address] Jan, [facility] [place] [facility] [address] [id number] [place] [address] Dec, [facility] [place] [facility] [address] [id number] [place] [address] Dec, [facility] [place] [facility] [address] [id number] [place] [address] Nov, [facility] [place] [facility] [address] [id number] [place] [address] Nov, [facility] [place] [facility] [address] [id number] [place] [address] Nov, [facility] [place] [facility] [address] [id number] [place] [address] Nov, [facility] [address] [id number] [place] [address] Oct, [facility] [address] [id number] [place] [address] Oct, [facility] [address] [address] [id number] [place] [address] Oct, [facility] [address] [id number] [place] [address] September, [facility] [address] [id number] [place] [address] September, [facility] [address] [id number] [place] [address] September, [facility] [address] [id number] [place] [address] September, [facility] [address] [id number] [place] [address] Aug, [facility] [address] [id number] [place] [address] Aug, [facility] [address] [id number] [place] [address] Jul, [facility] [address] [id number] [place] [address] Jul, [facility] [address] [id number] [place] [address] Jul, [facility] [place] [facility] [address] [id number] [place] [address] Jul, [facility] [address] [id number] [place] [address] 04 Jul, 2012 [facility] [address] [id number] [place] [address] Jun, [facility] [address] [id number] [place] [address] Jun, [facility] [place] [facility] [address] [id number] [place] [address] Jun, [facility] [address] [facility] [id number] [place] [address] 28 May, 2012 [facility] [place] [facility] [address] [id number] [place] [address] May, [facility] [address] [id number] [place] [address] May, [facility] [address] [id number] [place] [address] Apr, [facility] [address] [facility] [id number] [place] [address] Apr, [facility] [place] [facility] [address] [facility] [id number] [place] [address] Apr, [facility] [address] [facility] [id number] [place] [address] Apr, [facility] [place] [facility] [address] [facility] [id number] [place] [address] Apr, [facility] [address] [facility] [id number] [place] [address] Apr, [facility] [place] [facility] [address] [id number] [place] [address] Apr, [facility] [place] [facility] [address] [id number] [place] [address] Apr, [facility] [place] [facility] [address] [facility] [id number] [place] [address] Mar, [facility] [place] [facility] [address] [facility] [id number] [place] [address] Mar, [facility] [place] [facility] [address] [id number] [place] [address] Mar, [facility] [place] [facility] [address] [id number] [place] [address] Mar, [facility] [place] [facility] [address] [id number] [place] [address] Mar, [facility] [place] [facility] [address] [id number] [place] [address] Mar, [facility] [place] [facility] [address] [id number] [place] [address] Mar, [facility] [place] [facility] [address] [id number] [place] [address] Mar, [facility] [place] [facility] [address] [id number] [place] [address] Mar, [facility] [place] [facility] [address] [id number] [place] [address] Mar, [facility] [place] [facility] [address] [id number] [place] [address] Feb, [facility] [place] [facility] [address] [id number] [place] [address] Feb, [facility] [place] [facility] [address] [facility] [id number] [place] [address] Feb, [facility] [place] [facility] [address] [id number] [place] [address] Jan, [facility] [place] [facility] [address] [id number] [place] [address] Jan, [facility] [place] [facility] [address] [id number] [place] [address] Jan, [facility] [place] [facility] [address] [id number] [place] [address] Dec, [facility] [place] [facility] [address] [id number] [place] [address] Dec, [facility] [place] [facility] [address] [id number] [place] [address] Dec, [facility] [place] [facility] [address] [id number] [place] [address] Dec, [facility] [place] [facility] [address] [id number] [place] [address] Dec, [facility] [place] [facility] [address] [id number] [place] [address] Nov, [facility] [place] [facility] [address] [id number] [place] [address] Nov, [facility] [place] [facility] [address] [id number] [place] [address] Oct, [facility] [place] [facility] [address] [id number] [place] [address] September, [facility] [place] [facility] [address] [id number] [place] [address] September, [facility] [place] [facility] [address] [id number] [place] [address] September, [facility] [place] [facility] [address] [id number] [place] [address] September, [facility] [place] [facility] [address] [id number] [place] [address] September, [facility] [place] [facility] [address] [id number] [place] [address] Aug, [facility] [place] [facility] [address] [id number] [place] [address] 16 Jul, 2011 [facility] [place] [facility] [address] [id number] [place] [address] 6[address] 15 Jul, 2011 [facility] [place] [facility] [address] [id number] [place] [address] 14 Jul, 2011 [facility] [place] [facility] [address] [id number] [place] [address] 89[address] 14 Jul, 2011 [facility] [address] [id number] [place] [address] 09 Jul, 2011 [facility] [place] [facility] [address] [id number] [place] [address]26 09 Jul, 2011 [facility] [place] [facility] [address] [id number] [place] [address] Jul, [facility] [place] [facility] [address] [id number] [place] [address]10 Jul, [facility] [place] [facility] [address] [id number] [place] [address] 1326 27 Jun, 2011 [facility] [place] [facility] [address] [id number] [place] [address]- 6[address] 16 Jun, 2011 [facility] [place] [facility] [address] [facility] [id number] [place] [address]- [address] Jun, [facility] [place] [facility] [address] [facility] [id number] [place] [address] May, [facility] [place] [facility] [address] [facility] [id number] [place] [address] 59[address] Apr, [facility] [place] [facility] [address] [facility] [id number] [place] [address] 3367 Apr, [facility] [place] [facility] [address] [id number] [place] [address] Mar, [facility] [place] [facility] [address] [id number] [place] [address]- 0[address] Mar, [facility] [place] [facility] [address] [id number] [place] [address]- 6[address] Mar, [facility] [place] [facility] [address] [facility] [id number] [place] [address]- 6536 Feb, [facility] [place] [facility] [address] [id number] [place] [address]- 1544 Feb, [facility] [place] [facility] [address] [id number] [place] [address]- 4463 10 Feb, 2011 [facility] [place] [facility] [address] [id number] [place] [address]- 1681 21 Apr, 2010 [facility] [place] [facility] [address] [id number] [place] [address] Apr, [facility] [place] [facility] [address] [id number] [place] [address]- 8490 Mar, [facility] [address] [id number] [place] [address]- 7166 Mar, [facility] [place] [facility] [address] [id number] [place] [address]- 3986 Mar, [facility] [address] [id number] [place] [address] 2421 Mar, [facility] [address] [id number] [place] [address]- 45[address] Mar, [facility] [place] [facility] [address] [id number] [place] [address]- 8151 Feb, [facility] [place] [facility] [address] [id number], [place] [address] September, [facility] [place] [facility] [address] [id number] [place] [address]- 1413 13 Aug, 2009 [facility] [place] [facility] [address] [id number], [place] [address] Apr, [facility] [place] [facility] [address] [id number] [place] [address]- 4792 15 Apr, 2009 [facility] [place] [facility] [address] [id number], [place] [address] Mar, [facility] [place] [facility] [address] [id number] [address] 18 Mar, 2009 [facility] [place] [facility] [address] [id number], [place] [address] Mar, [facility] [id number] [address] Feb, [facility] [address] [place] [address] Jan, [facility] [address] [place] [address] Dec, [facility] [id number] [place] [address] Nov, [facility] [id number] [place] [address]- 3312 Oct, [facility] [id number] [place] [address]- 365[address] Apr, [facility] [id number] [place] [address]- [address]100 Apr, [facility] [address], [place] [address] Apr, [facility] [address] [place] [address] Feb, IMMUNIZATIONS No Known Immunizations SOCIAL HISTORY Never Assessed REASON FOR VISIT Nueopathy- PT says she is her for a cough with yellow mucus that began 5 months ago-Jun BROOKS PLAN OF CARE VITAL SIGNS Height 61 in 2017-04-26 Weight 153.0 lbs 2017-04-26 Temperature 99.0 degrees Fahrenheit 2017-04-26 Heart Rate 82 bpm 2017-04-26 Respiratory Rate 20 2017-04-26 BMI 28.91 kg/m2 2017-04-26 Blood pressure systolic 128 mmHg 2017-04-26 Blood pressure diastolic 80 mmHg 2017-04-26 MEDICATIONS Medication Instructions Dosage Frequency Start Date End Date Duration Status Atenolol 100 mg Orally Once a day 1 tablet 24h Jan, 30 day(s) Active Albuterol Sulfate HFA 108 (90 Base) MCG/ACT Inhalation every 4 hrs 2 puffs as needed 4h September, Active Glucometer 1 test blood sugar Nov, Active Pantoprazole Sodium 40MG Orally Once a day TAKE ONE TABLET BY MOUTH ONCE DAILY 24h 90 Active Tizanidine HCl 4MG Orally Three times a day 1 tablet as needed 8h 30 Active Combivent Respimat 20-100 MCG/ACT Inhalation Four times a day 1 puff 6h Mar, Active Requip XL 4 MG Orally Once a day 1 tablet 24h September, Active Advair Diskus 250-50 mcg/dose INHALE ONE DOSE BY MOUTH IN THE MORNING AND ONE IN THE EVENING APPROXIMATELY 12 HOURS APART 30 Active Mirapex 0.5 MG Orally Three times a day 1 tablet 8h Jan, Active Imipramine HCl 25 MG Orally Once a day 1 tablet at bedtime 24h Mar, 30 day(s) Active Chlorpheniramine Maleate 8 mg 1 capsule by Oral route 2 times per day PRN Jan, Active [place] 10-325 MG Orally every 6 hrs 1 tablet as needed 6h Mar, 28 days Active Bactrim DS 800-160 MG Orally Twice a day 1 tablet 12h Apr,Apr 10 day(s) Active RESULTS No Results PROCEDURES [...]
--- OUTSIDE RECORDS SUMMARY | 2017-12-04 17:51 | XMS REPORT ---
Author Author CEDRIC LAWLER Organization [facility] Address [address] [place] [address] Care Team Providers Care [facility] Director Name Role Phone NURIS CEDRIC Unavailable PROBLEMS Type Condition ICD9-CM Code [id number] Code Onset Dates Condition Status SNOMED Code Problem Nicotine dependence, uncomplicated, unspecified nicotine product type F17.200 Active 67332107 Problem Restless leg syndrome G25.81 Active 97297054 Problem Mild persistent asthma without complication J45.30 Active 280163526 Problem RLS (restless legs syndrome) G25.81 Active 27317612 Problem Hypertension, benign I10 Active 85680894 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
--- OUTSIDE RECORDS SUMMARY | 2017-12-04 17:51 | XMS REPORT ---
Author Author GENI LIANG [facility] Address Unknown Care Team Providers Care Dehydrogenation Converter Helper Name Role Phone GENI LIANG Unavailable PROBLEMS Type Condition ICD9-CM Code ZTH59-GG Code Onset Dates Condition Status SNOMED Code Problem Nicotine dependence, uncomplicated, unspecified nicotine product type F17.200 Active 30985285 Problem Restless leg syndrome G25.81 Active 38710066 Problem Mild persistent asthma without complication J45.30 Active 397359651 Problem RLS (restless legs syndrome) G25.81 Active 42181177 Problem Hypertension, benign I10 Active 98898273 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 570489027110008 Problem Abnormal CT lung screening R93.8 Active 027324923 Problem Essential hypertension I10 Active 74845508 Problem Diabetes mellitus type 2, controlled E11.9 Active 634724065 ALLERGIES Substance Reaction Event Type Date Status Latex rash Drug Allergy Aug, Active Lyrica nightmares Drug Allergy Aug, Active Codeine Phosphate nausea and vomiting Drug Allergy Aug, Active SOCIAL HISTORY Never Assessed PLAN OF CARE Activity Details Follow Up prn Reason:hygiene VITAL SIGNS Height 61 in 2016-08-31 Blood pressure systolic 136 mmHg 2016-08-31 Blood pressure diastolic 92 mmHg 2016-08-31 MEDICATIONS Medication Instructions Dosage Frequency Start Date End Date Duration Status Atenolol 100MG Orally Once a day 1 tablet 24h 90 days Active Advair Diskus 250/50 INHALE ONE DOSE BY MOUTH IN THE MORNING AND ONE IN THE EVENING APPROXIMATELY 12 HOURS APART 30 Active Glucometer 1 test blood sugar Nov, Active Albuterol Sulfate HFA 108 (90 Base) MCG/ACT Inhalation every 4 hrs 2 puffs as needed 4h September, Active Chlorpheniramine Maleate 8 mg 1 capsule by Oral route 2 times per day PRN Jan, Active Hydrocodone-Acetaminophen 10-325 MG Orally every 6 hrs-MUST HAVE APPT FOR FURTHER REFILLS take 1 tablet Aug, 28 days Active RESULTS No Results PROCEDURES Procedure Date Ordered Result Body Site LTD ORAL EVALUATION - PROBLEM FOCUS August 31, 2016 INTRAORL-PERIAPICAL 1 FILM [id number] August 31, 2016 EXTRAC ERUPTED TOOTH/EXPOSED ROOT August 31, 2016 IMMUNIZATIONS No Known Immunizations MEDICAL (GENERAL) HISTORY [...]
--- OUTSIDE RECORDS SUMMARY | 2017-12-04 17:51 | XMS REPORT ---
Author CEDRIC Peñaloaz Organization [employer] Address Unknown Phone Unavailable Care Team Providers Care Business Services Vice President Name Role Phone CEDRIC LAWLER CP Unavailable [...] Start Date End Date Status Dosage Atenolol [facility] [id number] 100MG TAKE ONE TABLET BY MOUTH ONCE DAILY Results No Known Results Summary Purpose [employer] Submission
--- OUTSIDE RECORDS SUMMARY | 2017-12-04 17:52 | XMS REPORT ---
Author Author CEDRIC LAWLER Organization [facility] Address [address] [place] [address] Care Team Providers Care Pony Ride Attendant Name Role Phone CEDRIC LAWLER Unavailable PROBLEMS Type Condition ICD9-CM Code [id number] Code Onset Dates Condition Status SNOMED Code Problem Nicotine dependence, uncomplicated, unspecified nicotine product type F17.200 Active 36556328 Problem Restless leg syndrome G25.81 Active 89398471 Problem Mild persistent asthma without complication J45.30 Active 567872081 Problem RLS (restless legs syndrome) G25.81 Active 06200165 Problem Hypertension, benign I10 Active 32408067 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 605205576390798 Problem Abnormal CT lung screening R93.8 Active 838680680 Problem Essential hypertension I10 Active 91155794 Problem Diabetes mellitus type 2, controlled E11.9 Active 268495654 ALLERGIES Substance Reaction Event Type Date Status Latex rash Drug Allergy Nov, Active Lyrica nightmares Drug Allergy Nov, Active Codeine Phosphate nausea and vomiting Drug Allergy Nov, Active ENCOUNTERS Encounter Location Date Diagnosis [facility] [id number] [place] [address] 67798- 6644 September, [facility] [id number] [place] [address] 67599 -9451 Jul, Chronic cough R05 [facility] [id number] [address] 3412 Jul, [facility] [id number] [place] [address] 63630- 5075 Jul, Diabetes mellitus type 2, controlled E11.9 [facility] [id number] [address] 5634 Jul, [facility] [id number] [address] 3534 Jul, [facility] [id number] [place] [address] 02268- 9619 Jun, [facility] [id number] [place] [address] 958090- 7284 Jun, Diabetes mellitus type 2, controlled E11.9 [facility] [id number] [place] [address] 22241- 6714 Jun, [facility] [id number] [place] [address] 83673- 6160 May, [facility] [id number] [place] [address] 70462- 3928 May, Diabetes mellitus type 2, controlled E11.9 [facility] [id number] [place] [address] 82166- 8365 Apr, [facility] [id number] [place] [address] 33050- 7295 Apr, Pneumonia of right upper lobe due to infectious organism J18.1 [facility] [id number] [place] [address] 47895- 3397 27 Mar, 2017 [facility] [id number] [place] [address] 45615- 4175 Mar, [facility] [id number] [place] [address] 81902- 7910 08 Mar, 2017 [facility] [id number] [place] [address] 92191- 5181 03 Mar, 2017 Coughing R05 and SOB (shortness of breath) R06.02 [facility] [id number] [place] [address] 43217- 6354 02 Mar, 2017 Diabetes mellitus type 2, controlled E11.9 ; Coughing R05 and SOB (shortness of breath) R06.02 [facility] [id number] [place] [address] 54805- 4096 Feb, [facility] [id number] [place] [address] 75519- 3433 Feb, [facility] [id number] [place] [address] 58459- 1209 Jan, Hypertension, benign I10 and RLS (restless legs syndrome) G25.81 [facility] [id number] [place] [address] 01205- 2426 Jan, [facility] [id number] [place] [address] 51969- 5223 Dec, Pain in unspecified joint M25.50 and Mild persistent asthma without complication J45.30 [facility] [id number] [place] [address] 74820- 3650 Dec, [facility] [id number] [place] [address] 92733- [address] Dec, [address] lung screening R93.8 [facility] [id number] [place] [address] 66230- 2857 Dec, [facility] [id number] [place] [address] 31407- 4079 Nov, Screening for breast cancer Z12.31 [facility] [id number] [place] [address] 37873- 3343 Nov, [facility] [id number] [place] [address] 73366- 6673 Nov, Essential hypertension I10 [facility] [id number] [place] [address] 49291- 1977 Nov, Essential hypertension I10 [facility] [id number] [place] [address] 18025- 5219 Oct, Acute non-recurrent maxillary sinusitis J01.00 [facility] [id number] [place] [address] 18777- 5068 Oct, [facility] [address] [address] 8984 September, Acute non-recurrent maxillary sinusitis J01.00 [facility] [address] [address]29 September, Low back pain M54.5 [facility] [address] [address]- 8154 September, [facility] [id number] [place] [address] 59997- 2379 Aug, Acute non-recurrent maxillary sinusitis J01.00 [facility] [id number] [place] [address] [id number] Aug, Dental examination Z01.20 [facility] [address] [address]- 8703 Aug, [facility] [id number] [place] [address] 10510- 1216 Aug, [facility] [address] [address]- 7592 Aug, [facility] [id number] [place] [address] 48318- 5672 Aug, Acute sinusitis J01.90 [facility] [address] [address]- 3852 Jul, [facility] [address] [address]- 4102 Jul, [facility] [address] [address]- 8608 Jul, [facility] [id number] [place] [address] 622502- 8313 15 Jul, 2016 [facility] [address] [address]- 7216 07 Jul, 2016 Frequent urination R35.0 and Acute cystitis with hematuria N30.01 [facility] [id number] [place] [address] 29756- 5705 Jul, [facility] [id number] [place] [address] 69964- 9972 Jun, [facility] [id number] [place] [address] 01050- 3154 Jun, Acute sinusitis J01.90 [facility] [address] [address]- 3740 Jun, Diabetes mellitus type 2, controlled E11.9 ; Cough R05 ; Acute non-recurrent maxillary sinusitis J01.00 and 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 [facility] [id number] [place] [address] 99030- 7251 May, [facility] [address] 07938- 5748 May, [facility] [id number] [place] [address] 44348- 6463 May, [facility] [id number] [place] [address] 79498- 8655 Apr, [facility] [id number] [place] [address] 19195- 6206 Apr, [facility] [id number] [place] [address] 82721- 5810 Apr, [facility] [id number] [place] [address] 08909 -4650 Apr, Acute non-recurrent maxillary sinusitis J01.00 [facility] [id number] [place] [address] 97741- 4403 Apr, [facility] [id number] [place] [address] 32529- 2033 Feb, [facility] [id number] [place] [address] 11705- 1772 Feb, [facility] [id number] [place] [address] 17576- 7315 Feb, [facility] [id number] [place] [address] 78413- 6897 Feb, [facility] [id number] [place] [address] 91678- 6534 Feb, [facility] [id number] [place] [address] 42330- 6652 Feb, [facility] [id number] [place] [address] 49735- 7175 Jan, RLS (restless legs syndrome) G25.81 ; Osteoarthritis of spine with radiculopathy, cervical region M47.22 ; Lumbar neuritis M54.16 and Left sciatic nerve pain M54.32 [facility] [id number] [place] [address] 01948- 8978 Jan, [facility] [id number] [place] [address] 86837- 8235 Dec, [facility] [id number] [place] [address] 30489- 0329 Nov, [facility] [address] [address]- 8658 Nov, [facility] [id number] [place] [address] 89296- 4317 Nov, [facility] [id number] [place] [address] 81973- 7389 Nov, Restless leg syndrome G25.81 and Controlled type 2 diabetes mellitus without complication, without long-term current use of insulin E11.9 [facility] [address] [address]- 4351 Nov, [facility] [id number] [place] [address] 75268- 3366 Oct, [facility] [address] [address]- 0992 Oct, [facility] [id number] [place] [address] 38105- 9349 Oct, [facility] [id number] [place] [address] 27697- 0399 Oct, 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 lung screening R93.8 [facility] [id number] [place] [address] 70889- 0311 Oct, [facility] [id number] [place] [address] 02009- 2538 September, [facility] [id number] [place] [address] 37734- 3186 September, Physical exam, annual Z00.00 ; Nicotine dependence, uncomplicated, unspecified nicotine product type F17.200 ; Screening breast examination Z12.39 ; Restless leg syndrome G25.81 and Mild persistent asthma without complication J45.30 [facility] [id number] [place] [address] 43585- 1929 September, [facility] [id number] [place] [address] 94739- 1743 September, [facility] [id number] [place] [address] 88855- 9497 Aug, [facility] [id number] [place] [address] 58228- 8966 Jul, Dental examination Z01.20 and Dental caries K02.9 [facility] [id number] [place] [address] 90079- 9648 Jul, [facility] [id number] [place] [address] 32517- 6715 Jul, Diabetes mellitus type 2, controlled E11.9 and Pain in unspecified joint M25.50 [facility] [id number] [place] [address] 86190- 2238 Jul, [facility] [address] [address]- 0330 Jun, Dental examination Z01.20 [facility] [address] [address]- 4183 May, [facility] [id number] [place] [address] 91097- 9076 May, [facility] [id number] [place] [address] 72461- 3010 Apr, [facility] [id number] [place] [address] 89686- 1588 Mar, [facility] [id number] [place] [address] 91395- 8188 Mar, Acute sinusitis J01.90 [facility] [id number] [place] [address] 42695- 4618 Feb, [facility] [id number] [place] [address] 63264- 7742 Jan, Flu vaccine need V04.81 [facility] [address] [address]- 6408 Jan, [facility] [address] [address]- 7130 Jan, Pain in joint, site unspecified 719.40 [facility] [address] [address]- 0205 Dec, Pain in joint, site unspecified 719.40 [facility] [address] [address]- 8944 Dec, [facility] [address] [address]- 5757 Dec, [facility] [address] [place] [address] 21225- 1507 Dec, Sciatica 724.3 ; Restless legs syndrome [RLS] 333.94 and Encounter for smoking cessation counseling V65.42 [facility] [id number] [place] [address] 92859- 0597 Dec, Nicotine dependence 305.1 [facility] [id number] [place] [address] 106608- 7235 Nov, [facility] [id number] [place] [address] 49689- 8316 Oct, [facility] [id number] [place] [address] 679789- 9008 Oct, [facility] [id number] [place] [address] 47293- 8169 September, [facility] [id number] [place] [address] 43787- 6225 Aug, [facility] [id number] [place] [address] 43014- 7604 Aug, [facility] [id number] [place] [address] 36763- 7686 Jul, [facility] [id number] [place] [address] 96404- 0544 Jul, [facility] [id number] [place] [address] 58123- 3428 Jul, [facility] [id number] [place] [address] 31589- 8512 Jun, [facility] [address] [address]- 0661 Jun, [facility] [id number] [place] [address] 476423- 5859 Jun, [facility] [address] 5421 Jun, [facility] [id number] [place] [address]- 2971 May, [facility] [address] [id number] [place] [address]- 4767 May, [facility] [address] [id number] [place] [address]- 4031 May, [facility] [address] [id number] [place] [address]- 8796 May, [facility] [address] [id number] [place] [address]- 8800 May, [facility] [address] [id number] [place] [address]- 1498 May, [facility] [address] [id number] [place] [address]- 5009 May, [facility] [address] [id number] [place] [address]- 6265 Apr, [facility] [address] [id number] [place] [address]- 9475 Apr, [facility] [address] [id number] [place] [address]- 2399 Apr, [facility] [address] [id number] [place] [address]- 7196 Apr, [facility] [place] [facility] [address] [id number] [place] [address]- 2672 Apr, [facility] [address] [id number] [place] [address]- 6301 Apr, [facility] [place] [facility] [address] [id number] [place] [address]- 4959 Apr, [facility] [place] [facility] [address] [id number] [place] 5900 Apr, [facility] [place] [facility] [address] [id number] [place] [address]- 4716 Apr, [facility] [place] [facility] [address] [id number] [place] [address]- 9639 Apr, [facility] [place] [facility] [address] [id number] [place] [address]- 9341 Mar, [facility] [place] [facility] [address] [id number] [place] [address]- 4444 Mar, [facility] [place] [facility] [address] [id number] [place] [address]- 9623 Mar, [facility] [place] [facility] [address] [id number] [place] [address]- 8518 Mar, [facility] [place] [facility] [address] [id number] [place] [address]- 1645 Mar, [facility] [place] [facility] [address] [id number] [place] [address]- 7037 Mar, [facility] [place] [facility] [address] [id number] [place] [address]- 4419 Feb, [facility] [place] [facility] [address] [id number] [place] [address]- 2701 Feb, [facility] [place] [facility] [address] [id number] [place] [address]- 3519 Feb, [facility] [place] [facility] [address] [id number] [address]- 6047 Feb, [facility] [place] [facility] [address] [id number] [address]- 2689 Feb, [facility] [place] [facility] [address] [id number] [place] [address]- 0909 Feb, [facility] [place] [facility] [address] [id number] [place]- 9922 22 Jan, 2014 [facility] [place] [facility] [address] [id number] [place] 1909 Jan, [facility] [place] [facility] [address] [id number] [place] [address]- 7193 Jan, [facility] [place] [facility] [address] [id number] [place] [address]- 0700 Jan, [facility] [place] [facility] [address] [id number] [place] [address]- 8266 Dec, [facility] [place] [facility] [address] [id number] [place] [address]- 6418 Dec, [facility] [place] [facility] [address] [id number] [place] [address]- 3177 Dec, [facility] [place] [facility] [address] [id number] [place] [address]- 5679 Dec, [facility] [place] [facility] [address] [id number] [place] [address]- 7952 Dec, [facility] [place] [facility] [address] [id number] [place] [address]- 7356 Nov, [facility] [place] [facility] [address] [id number] [place] [address]- 9090 Nov, [facility] [place] [facility] [address] [id number] [place] [address]- 5427 Nov, [facility] [place] [facility] [address] [id number] [place] [address]- 8273 Nov, [facility] [place] [facility] [address] [id number] [place] [address]- 9510 Nov, [facility] [place] [facility] [address] [id number] [place] [address]- 5476 Nov, [facility] [place] [facility] [address] [id number] [place] [address]- 9114 Oct, [facility] [place] [facility] [address] [id number] [place] [address]- 6351 16 Oct, 2013 [facility] [place] [facility] [address] [id number] [place] [address]- 1766 September, [facility] [place] [facility] [address] [id number] [place] [address]- 9839 16 Sep, 2013 [facility] [place] [facility] [address] [id number] [place] [address]- 5763 September, [facility] [place] [facility] [address] [id number] [place] [address]- 9284 14 Sep, 2013 [facility] [place] [facility] [address] [id number] [place] [address]- 6265 14 Aug, 2013 [facility] [place] [facility] [address] [id number] [place] [address]- 7043 Aug, [facility] [place] [facility] [address] [id number] [place] [address]- 9458 Jul, [facility] [place] [facility] [address] [id number] [place] [address]- 4046 17 Jul, 2013 [facility] [place] [facility] [address] [id number] [place] [address]- 3916 Jul, [facility] [place] [facility] [address] [id number] [place] [address]- 3803 Jul, [facility] [place] [facility] [address] [id number] [place] [address]- 8217 Jun, [facility] [place] [facility] [address] [id number] [place] [address]- 9797 Jun, [facility] [place] [facility] [address] [id number] [place] [address] Jun, [facility] [place] [facility] [address] [id number] [place] [address] Jun, [facility] [place] [facility] [address] [id number] [place] [address] May, [facility] [place] [facility] [address] [id number] [place] [address] May, [facility] [place] [facility] [address] [id number] [place] [address] May, [facility] [place] [facility] [address] [id number] [place] [address] May, [facility] [place] [facility] [address] [id number] [place] [address] Apr, [facility] [place] [facility] [address] [id number] [place] [address] Apr, [facility] [place] [facility] [address] [id number] [place] [address] Apr, [facility] [place] [facility] [address] [id number] [place] [address] Mar, [facility] [place] [facility] [address] [id number] [place] [address] Mar, [facility] [place] [facility] [address] [id number] [place] [address] Mar, [facility] [place] [facility] [address] [id number] [place] [address] Mar, [facility] [place] [facility] [address] [id number] [place] [address] Feb, [facility] [place] [facility] [address] [id number] [place] [address] Feb, [facility] [place] [facility] [address] [id number] [place] [address] Feb, [facility] [place] [facility] [address] [id number] [place] [address] 18 Feb, 2013 [facility] [place] [facility] [address] [id number] [place] 17 Feb, 2013 [facility] [place] [facility] [address] [id number] [place] [address] Feb, [facility] [place] [facility] [address] [id number] [place] [address] Feb, [facility] [place] [facility] [address] [id number] [place] [address] Feb, [facility] [address] [id number] [place] [address] Jan, [facility] [address] [id number] [place] [address] Jan, [facility] [address] [id number] [place] [address] Jan, [facility] [address] [id number] [place] [address] Dec, [facility] [address] [id number] [place] [address] Dec, [facility] [address] [id number] [place] [address] Nov, [facility] [address] [id number] [place] [address] Nov, [facility] [address] [id number] [place] [address] Nov, [facility] [address] [id number] [place] [address] Nov, [facility] [address] [id number] [place] [address] Oct, [facility] [address] [id number] [place] [address] Oct, [facility] [address] [id number] [place] [address] Oct, [facility] [place] [facility] [address] [id number] [place] [address] September, [facility] [place] [facility] [address] [id number] [place] [address] September, [facility] [address] [id number] [place] [address] September, [facility] [address] [id number] [place] [address] September, [facility] [address] [address] [id number] [place] [address] Aug, [facility] [address] [id number] [place] [address] Aug, [facility] [place] [facility] [address] [id number] [place] [address] Jul, [facility] [address] [id number] [place] [address] Jul, [facility] [place] [facility] [address] [id number] [place] [address] Jul, [facility] [address] [id number] [place] [address] Jul, [facility] [address] [id number] [place] [address] Jul, [facility] [address] [id number] [place] [address] Jun, [facility] [address] [id number] [place] [address] Jun, [facility] [place] [facility] [address] [id number] [place] [address] Jun, [facility] [place] [facility] [address] [id number] [place] [address] May, [facility] [place] [facility] [address] [id number] [place] [address] May, [facility] [place] [facility] [address] [id number] [place] [address] 80[address] May, [facility] [place] [facility] [address] [id number] [place] [address] Apr, [facility] [place] [facility] [address] [id number] [place] [address] Apr, [facility] [place] [facility] [address] [id number] [place] [address] Apr, [facility] [place] [facility] [address] [id number] [place] [address] 1306 Apr, [facility] [place] [facility] [address] [id number] [place] [address] Apr, [facility] [place] [facility] [address] [id number] [place] [address] Apr, [facility] [place] [facility] [address] [id number] [place] [address] Apr, [facility] [place] [facility] [address] [id number] [place] [address] Apr, [facility] [place] [facility] [address] [id number] [place] [address] Mar, [facility] [place] [facility] [address] [id number] [place] [address] Mar, [facility] [place] [facility] [address] [id number] [place] [address] Mar, [facility] [place] [facility] [address] [facility] [id number] [place] [address] 93[address] Mar, [facility] [place] [facility] [address] [id number] [place] [address] Mar, [facility] [place] [facility] [address] [id number] [place] [address] 79[address] Mar, [facility] [place] [facility] [address] [id number] [place] [address] Mar, [facility] [place] [facility] [address] [id number] [place] [address]100 Mar, [facility] [place] [facility] [address] [facility] [id number] [place] [address] Mar, [facility] [place] [facility] [address] [id number] [place] [address] Mar, [facility] [place] [facility] [address] [id number] [place] [address]68 Feb, [facility] [place] [facility] [address] [id number] [place] [address] Feb, [facility] [place] [facility] [address] [id number] [place] [address] 64[address] Feb, [facility] [place] [facility] [address] [id number] [place] [address] Jan, [facility] [place] [facility] [address] [id number] [place] [address] Jan, [facility] [place] [facility] [address] [id number] [place] [address] Jan, [facility] [place] [facility] [address] [id number] [place] [address] Dec, [facility] [place] [facility] [address] [id number] [place] [address] Dec, [facility] [place] [facility] [address] [id number] [place] [address] 135[address] Dec, [facility] [place] [facility] [address] [id number] [place] [address] Dec, [facility] [place] [facility] [address] [id number] [place] [address] 0893 Dec, [facility] [place] [facility] [address] [id number] [place] [address] 87[address] Nov, [facility] [place] [facility] [address] [id number] [place] [address] Nov, [facility] [place] [facility] [address] [id number] [place] [address] Oct, [facility] [place] [facility] [address] [id number] [place] [address] September, [facility] [place] [facility] [address] [id number] [place] [address] September, [facility] [place] [facility] [address] [id number] [place] [address] 1646 September, [facility] [place] [facility] [address] [id number] [place] [address] 8516 September, [facility] [place] [facility] [address] [id number] [place] [address] 3186 September, [facility] [place] [facility] [address] [id number] [place] [address] 9199 Aug, [facility] [place] [facility] [address] [id number] [place] [address] Jul, [facility] [place] [facility] [address] [id number] [place] [address] Jul, [facility] [place] [facility] [address] [id number] [place] [address] 0[address] Jul, [facility] [place] [facility] [address] [id number] [place] [address]- [address] 14 Jul, 2011 [facility] [place] [facility] [address] [id number] [place] [address] Jul, [facility] [place] [facility] [address] [id number] [place] [address] 9433 Jul, [facility] [place] [facility] [address] [id number] [place] [address] 17[address] Jul, [facility] [place] [facility] [address] [id number] [place] [address]- [address] 05 Jul, 2011 [facility] [place] [facility] [address] [id number] [place] [address] 27 Jun, 2011 [facility] [place] [facility] [address] [id number] [place] [address] 7836 16 Jun, 2011 [facility] [place] [facility] [address] [id number] [place] [address]- 4471 10 Jun, 2011 [facility] [address] [id number] [place] [address] 3460 May, [facility] [place] [facility] [address] [id number] [place] [address] 7628 Apr, [facility] [address] [id number] [place] [address] 6332 Apr, [facility] [place] [facility] [address] [id number] [place] [address]- 7063 Mar, [facility] [address] [id number] [place] [address]- 8113 Mar, [facility] [place] [facility] [address] [id number] [place] [address]- 8722 Mar, [facility] [place] [facility] [address] [id number] [place] [address]- 2351 Feb, [facility] [address] [id number] [place] [address]- 0258 Feb, [facility] [place] [facility] [address] [id number] [place] [address]- 1536 Feb, [facility] [address] [id number] [place] [address] 4930 Apr, [facility] [place] [facility] [address] [id number] [place] [address]- 6989 Apr, [facility] [place] [facility] [address] [id number] [place] [address]- 5771 Mar, [facility] [place] [facility] [address] [id number] [place] [address]- 6516 Mar, [facility] [place] [facility] [address] [id number] [place] [address]- 1779 Mar, [facility] [place] [facility] [address] [id number] [place] [address]- 7895 Mar, [facility] [place] [facility] [address] [id number] [place] [address]- 4865 19 Mar, 2010 [facility] [place] [facility] [address] [id number] [place] [address]- 2959 13 Feb, 2010 [facility] [place] [facility] [address] [id number] [place] [address]- 4947 September, [facility] [place] [facility] [address] [id number] [place] [address]- [address]65 Aug, [facility] [place] [facility] [address] [id number] [place] [address]- 2778 Apr, [facility] [place] [facility] [address] [id number] [place] [address]- 3254 Apr, [facility] [place] [facility] [address] [id number] [place] [address]- 2569 18 Mar, 2009 [facility] [place] [facility] [address] [id number] [place] [address] 18 Mar, 2009 [facility] [place] [facility] [address] [id number] [place] [address]- 4785 Mar, [facility] [place] [facility] [address] [facility] [id number] [address] 30[address] Feb, [facility] [place] [facility] [address] [id number] [place] [address] 83[address] Jan, [facility] [place] [facility] [address] [id number] [place] [address]- 8432 Dec, [facility] [place] [facility] [address] [id number] [place] [address] 15 Nov, 2008 [facility] [place] [facility] [address] [id number] [place] [address]- 1731 Oct, [facility] [place] [facility] [address] [id number] [place] [address]- 6[address] Apr, [facility] [place] [facility] [address] [id number] [place] [address] 40[address] Apr, [facility] [address] [facility] [id number] [place] [address]26 Apr, [facility] [address] [facility] [id number] [place] [address] Feb, IMMUNIZATIONS No Known Immunizations SOCIAL HISTORY Never Assessed REASON FOR VISIT Refill request PLAN OF CARE VITAL SIGNS MEDICATIONS Medication Instructions Dosage Frequency Start Date End Date Duration Status Metoprolol Succinate 100 mg Orally Once a day 1 tablet 24h Nov, 90 days Active RESULTS No Results PROCEDURES No [...]
--- OUTSIDE RECORDS SUMMARY | 2017-12-04 17:52 | XMS REPORT ---
Author Author CEDRIC LAWLER Organization [facility] Address [address] [place] [address] Care Team Providers Care Administrative Office Specialist Name Role Phone NURIS CEDRIC Unavailable PROBLEMS Type Condition ICD9-CM Code [id number] Code Onset Dates Condition Status SNOMED Code Problem Nicotine dependence, uncomplicated, unspecified nicotine product type F17.200 Active 58218917 Problem Restless leg syndrome G25.81 Active 14339764 Problem Mild persistent asthma without complication J45.30 Active 956066560 Problem RLS (restless legs syndrome) G25.81 Active 21229945 Problem Hypertension, benign I10 Active 67161745 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
--- OUTSIDE RECORDS SUMMARY | 2017-12-04 17:52 | XMS REPORT ---
Author Author CEDRIC LAWLER Organization [facility] Address [address] [place] [address] Care Team Providers Care Cabbage Salter Name Role Phone CEDRIC LAWLER Unavailable PROBLEMS Type Condition ICD9-CM Code HLM37-HC Code Onset Dates Condition Status SNOMED Code Problem Nicotine dependence, uncomplicated, unspecified nicotine product type F17.200 Active 649[address]101 Problem Ab[address] lung screening R93.8 Active 633521584 Problem Mild persistent asthma without complication J45.30 Active 799411796 Problem Restless leg syndrome G25.81 Active 75209667 Problem Osteoarthritis of spine with radiculopathy, cervical region M47.22 Active 814506216 Problem RLS (restless legs syndrome) G25.81 Active 90297794 Problem Diabetes mellitus type 2, controlled E11.9 Active 195930452 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 [id number] Problem Hypertension, benign I10 Active 12507677 Problem Essential hypertension I10 Active 11868198 ALLERGIES No Information ENCOUNTERS Encounter Location Date Diagnosis [facility] [address] [address] September, Osteoarthritis of spine with radiculopathy, cervical region M47.22 ; Coughing R05 ; Chronic pruritus L29.9 and Breast cancer screening Z12.31 [facility] [id number] [place] [address] 52043- 9413 September, Diabetes mellitus type 2, controlled E11.9 [facility] [id number] [place] [address] 09248 -8813 Jul, Chronic cough R05 [facility] [id number] [place] [address] 90558- 2043 Jul, [facility] [address] [address]- [address] Jul, Diabetes mellitus type 2, controlled E11.9 [facility] [address], [place] [address] 5[address] Jul, [facility] [id number] [place] [address] 935535- 0043 Jul, [facility] [id number] [place] [address] 22296- 0872 Jun, [facility] [id number] [place] [address] 174991- 4841 Jun, Diabetes mellitus type 2, controlled E11.9 [facility] [id number] [place] [address] 643630- 9364 Jun, [facility] [id number] [place] [address] 49192- 2275 May, [facility] [id number] [place] [address] 80169- 9927 May, Diabetes mellitus type 2, controlled E11.9 [facility] [address] [address]- 8[address] Apr, [facility] [id number] [place] [address] 30790- 1260 Apr, Pneumonia of right upper lobe due to infectious organism J18.1 [facility] [address] [address] 5[address] Mar, [facility] [address] [address] 3480 Mar, [facility] [id number] [place] [address] 39432- 9728 08 Mar, 2017 [facility] [id number] [place] [address] 38153- 2972 03 Mar, 2017 Coughing R05 and SOB (shortness of breath) R06.02 [facility] [id number] [place] [address] 36037- 1121 Mar, Diabetes mellitus type 2, controlled E11.9 ; Coughing R05 and SOB (shortness of breath) R06.02 [facility] [id number] [place] [address] 88528- 5023 Feb, [facility] [id number] [place] [address] 57665- 3409 Feb, [facility] [address] 7[address]84- 9280 Jan, Hypertension, benign I10 and RLS (restless legs syndrome) G25.81 [facility] [address] 33572- 7816 Jan, [facility] [id number] [place] [address] 28084- 5675 Dec, Pain in unspecified joint M25.50 and Mild persistent asthma without complication J45.30 [facility] [id number] [place] [address] 92402- 6368 Dec, [facility] [id number] [place] [address] 69655- [address] Dec, [address] lung screening R93.8 [facility] [id number] [place] [address] 82478- 5784 Dec, [facility] [id number] [place] [address] 53123- 9818 Nov, Screening for breast cancer Z12.31 [facility] [id number] [place] [address] 71635- 5871 Nov, [facility] [address] 63596- 7470 Nov, Essential hypertension I10 [facility] [id number] [place] [address] 68454- 3384 Nov, Essential hypertension I10 [facility] [address] 62295- 5335 Oct, Acute non-recurrent maxillary sinusitis J01.00 [facility] [address], [place] [address]- 4744 Oct, [facility] [address], [place] [address]- 6708 September, Acute non-recurrent maxillary sinusitis J01.00 [facility] [address], [place] [address] September, Low back pain M54.5 [facility] [id number] [place] [address] 48670- 3017 September, [facility] [id number] [place] [address] 78652- 9416 Aug, Acute non-recurrent maxillary sinusitis J01.00 [facility] [address] [address] Aug, Dental examination Z01.20 [facility] [address] [address]- 5726 Aug, [facility] [id number] [place] [address] 37052- 5840 Aug, [facility] [address], [place] [address]- 1566 Aug, [facility] [id number] [place] [address] 04543- 6667 Aug, Acute sinusitis J01.90 [facility] [address], [place] [address]- 9932 Jul, [facility] [id number] [address]- 3089 Jul, [facility] [address], [place] [address]- 6425 Jul, [facility] [id number] [place] [address] 47133- 5445 Jul, [facility] [id number] [place] [address] 55816- 8934 Jul, Frequent urination R35.0 and Acute cystitis with hematuria N30.01 [facility] [id number] [place] [address] 29383- 5183 Jul, [facility] [address] 10144- 7881 Jun, [facility] [id number] [place] [address] 83407- 2917 Jun, Acute sinusitis J01.90 [facility] [id number] [place] [address] 69051- 8053 Jun, Diabetes mellitus type 2, controlled E11.9 ; Cough R05 ; Acute non-recurrent maxillary sinusitis J01.00 and intermediate (current) use of opiate analgesic Z79.891 [facility] [id number] [place] [address] 84819- 7387 May, [facility] [id number] [place] [address] 43573- 1215 May, [facility] [id number] [place] [address] 09317- 9905 May, [facility] [id number] [place] [address] 14604- 2234 Apr, [facility] [id number] [place] [address] 30479- 2142 Apr, [facility] [id number] [place] [address] 74356- 3924 Apr, [facility] [id number] [place] [address] 36974 -1410 Apr, Acute non-recurrent maxillary sinusitis J01.00 [facility] [id number] [place] [address] 35965- 5821 Apr, [facility] [id number] [place] [address] 30670- 0829 Feb, [facility] [id number] [place] [address] 91727- 6024 Feb, [facility] [id number] [place] [address] 88003- 3681 Feb, [facility] [id number] [place] [address] 00431- 7760 Feb, [facility] [id number] [place] [address] 94688- 6640 Feb, [facility] [id number] [place] [address] 59755- 8773 Feb, [facility] [id number] [place] [address] 22868- 7407 Jan, RLS (restless legs syndrome) G25.81 ; Osteoarthritis of spine with radiculopathy, cervical region M47.22 ; Lumbar neuritis M54.16 and Left sciatic nerve pain M54.32 [facility] [id number] [place] [address] 60825- 8509 Jan, [facility] [id number] [place] [address] 61655- 0669 Dec, [facility] [id number] [place] [address] 77793- 4873 Nov, [facility] [id number] [place] [address] 09167- 9820 Nov, [facility] [id number] [place] [address] 52489- 4748 Nov, [facility] [id number] [place] [address] 03480- 2237 Nov, Restless leg syndrome G25.81 and Controlled type 2 diabetes mellitus without complication, without long-term current use of insulin E11.9 [facility] [address], [place] [address]- 1704 Nov, [facility] [id number] [place] [address] 60548- 4466 Oct, [facility] [id number] [place] [address] 25877- 3087 Oct, [facility] [id number] [place] [address] 26258- 0023 Oct, [facility] [id number] [place] [address] 33615- 5072 Oct, 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 lung screening R93.8 [facility] [id number] [place] [address] 37396- 1915 Oct, [facility] [id number] [place] [address] 09024- 6656 September, [facility] [id number] [place] [address] 20464- 7262 September, Physical exam, annual Z00.00 ; Nicotine dependence, uncomplicated, unspecified nicotine product type F17.200 ; Screening breast examination Z12.39 ; Restless leg syndrome G25.81 and Mild persistent asthma without complication J45.30 [facility] [address], [place] [address]- 4629 September, [facility] [id number] [place] [address] 98531- 3185 September, [facility] [address], [place] [address]- 0893 Aug, [facility] [id number] [place] [address] 64647- 3051 Jul, Dental examination Z01.20 and Dental caries K02.9 [facility] [address], [place] [address]- 4693 Jul, [facility] [id number] [address]- 9441 Jul, Diabetes mellitus type 2, controlled E11.9 and Pain in unspecified joint M25.50 [facility] [id number] [place] [address] 52812- 6189 Jul, [facility] [id number] [place] [address] 52583- 1010 Jun, Dental examination Z01.20 [facility] [id number] [place] [address] 23748- 1047 May, [facility] [id number] [place] [address] 87187- 5888 May, [facility] [id number] [place] [address] 85320- 8624 Apr, [facility] [id number] [place] [address] 57762- 6415 Mar, [facility] [id number] [place] [address] 86265- 1727 Mar, Acute sinusitis J01.90 [facility] [id number] [place] [address] 17453- 8959 Feb, [facility] [id number] [place] [address] 13439- 7670 Jan, Flu vaccine need V04.81 [facility] [id number] [place] [address] 26867- 8227 Jan, [facility] [id number] [place] [address] 85957- 3032 Jan, Pain in joint, site unspecified 719.40 [facility] [id number] [place] [address] 26300- 7252 Dec, Pain in joint, site unspecified 719.40 [facility] [id number] [place] [address] 11562- 5997 Dec, [facility] [address], [place] [address]- 0791 Dec, [facility] [id number] [place] [address] 79158- 6752 Dec, Sciatica 724.3 ; Restless legs syndrome [RLS] 333.94 and Encounter for smoking cessation counseling V65.42 [facility] [id number] [place] [address] 29645- 3530 Dec, Nicotine dependence 305.1 [facility] [id number] [place] [address] 665371- 8185 Nov, [facility] [id number] [place] [address] 45574- 3432 Oct, [facility] [id number] [place] [address] 13240- 8206 Oct, [facility] [id number] [place] [address] 27196- 4482 September, [facility] [address], [place] [address]- 9950 Aug, [facility] [id number] [place] [address] 29787- 2519 Aug, [facility] [address], [place] [address]- 0616 Jul, [facility] [address], [place] [address]- 1197 Jul, [facility] [address], [place] [address]- 8205 Jul, [facility] [address], [place] [address]- 8196 Jun, [facility] [address], [place] [address]- 1926 Jun, [facility] [id number] [place] [address] [place] [address]- 7181 Jun, [facility] [address] [id number] [place] [address]- 7709 Jun, [facility] [place] [facility] [address] [id number] [place] [address]- 7442 May, [facility] [place] [facility] [address] [id number] [place] [address]- 6552 May, [facility] [place] [facility] [address] [id number] [place] [address]- 9999 May, [facility] [place] [facility] [address] [id number] [place] [address]- 6193 May, [facility] [place] [facility] [address] [id number] [place] [address]- 2162 May, [facility] [address] [id number] [place] [address]- 8569 May, [facility] [place] [facility] [address] [id number] [place] [address]- 8895 May, [facility] [place] [facility] [address] [id number] [place] [address]- 0064 Apr, [facility] [place] [facility] [address] [id number] [place] [address]- 4125 Apr, [facility] [place] [facility] [address] [id number] [place] [address]- 2393 Apr, [facility] [place] [facility] [address] [id number] [place] [address]- 2824 Apr, [facility] [place] [facility] [address] [id number] [place] [address]- 6403 Apr, [facility] [place] [facility] [address] [id number] [place] [address]- 6297 Apr, [facility] [place] [facility] [address] [id number] [place] [address]- 4216 Apr, [facility] [place] [facility] [address] [id number] [place] [address]- 3847 Apr, [facility] [place] [facility] [address] [id number] [place] [address]- 1349 Apr, [facility] [place] [facility] [address] [id number] [place] [address]- 3483 Apr, [facility] [place] [facility] [address] [id number] [place] [address]- 1676 Mar, [facility] [place] [facility] [address] [id number] [place] [address]- 9886 Mar, [facility] [place] [facility] [address] [id number] [place] [address]- 6990 Mar, [facility] [place] [facility] [address] [id number] [place] [address]- 8690 Mar, [facility] [place] [facility] [address] [id number] [place] [address]- 5450 Mar, [facility] [place] [facility] [address] [id number] [place] [address]- 8047 Mar, [facility] [place] [facility] [address] [id number] [place] [address]- 6618 Feb, [facility] [place] [facility] [address] [id number] [place] [address]- 3750 15 Feb, 2014 [facility] [place] [facility] [address] [id number] [place] [address]- 3727 Feb, [facility] [place] [facility] [address] [id number] [place] [address]- 5890 Feb, [facility] [place] [facility] [address] [id number] [place] [address]- 7922 Feb, [facility] [place] [facility] [address] [id number] [place] [address]- 9293 Feb, [facility] [place] [facility] [address] [id number] [place] [address]- 8452 Jan, [facility] [place] [facility] [address] [id number] [place] [address]- 1716 Jan, [facility] [place] [facility] [address] [id number] [place] [address]- 4847 Jan, [facility] [place] [facility] [address] [id number] [place] [address]- 4625 Jan, [facility] [place] [facility] [address] [id number] [place] [address]- 3929 Dec, [facility] [place] [facility] [address] [id number] [place] [address]- 1704 Dec, [facility] [place] [facility] [address] [id number] [place] [address]- 2091 Dec, [facility] [place] [facility] [address] [id number] [place] [address]- 9891 Dec, [facility] [place] [facility] [address] [id number] [place] [address]- 1795 Dec, [facility] [place] [facility] [address] [id number] [place] [address]- 9617 Nov, [facility] [place] [facility] [address] [id number] [place] [address]- 1670 Nov, [facility] [place] [facility] [address] [id number] [place] [address]- 7685 Nov, [facility] [place] [facility] [address] [id number] [place] [address]- 6527 Nov, [facility] [place] [facility] [address] [id number] [place] [address]- 8746 Nov, [facility] [place] [facility] [address] [id number] [place] [address]- 1933 Nov, [facility] [place] [facility] [address] [id number] [place] [address]- 0498 16 Oct, 2013 [facility] [place] [facility] [address] [id number] [place] [address]- 5208 16 Oct, 2013 [facility] [address] [id number] [place] [address]- 3445 September, [facility] [place] [facility] [address] [id number] [place] [address]- 0559 September, [facility] [address] [id number] [place] [address]- 2178 September, [facility] [place] [facility] [address] [id number] [place] [address]- 0155 September, [facility] [address] [id number] [place] [address]- 2073 Aug, [facility] [place] [facility] [address] [id number] [place] [address]- 3444 Aug, [facility] [place] [facility] [address] [id number] [place] [address]- 2755 Jul, [facility] [place] [facility] [address] [id number] [place] [address]- 8994 17 Jul, 2013 [facility] [place] [facility] [address] [id number] [place] [address]- 0503 Jul, [facility] [address] [id number] [place] [address] Jul, [facility] [place] [facility] [address] [id number] [place] [address] Jun, [facility] [place] [facility] [address] [id number] [place] [address] Jun, [facility] [place] [facility] [address] [id number] [place] [address] Jun, [facility] [place] [facility] [address] [id number] [place] [address] Jun, [facility] [place] [facility] [address] [id number] [place] [address] May, [facility] [place] [facility] [address] [id number] [place] [address] May, [facility] [place] [facility] [address] [id number] [place] [address] May, [facility] [place] [facility] [address] [id number] [place] [address] May, [facility] [place] [facility] [address] [id number] [place] [address] Apr, [facility] [place] [facility] [address] [id number] [place] [address] Apr, [facility] [place] [facility] [address] [id number] [place] [address] Apr, [facility] [place] [facility] [address] [id number] [place] [address] Mar, [facility] [place] [facility] [address] [id number], [place] [address] Mar, [facility] [place] [facility] [address] [id number] [place] [address] Mar, [facility] [place] [facility] [address] [id number], [place] [address] Mar, [facility] [place] [facility] [address] [id number], [place] [address] Feb, [facility] [place] [facility] [address] [id number], [place] [address] Feb, [facility] [place] [facility] [address] [id number] [place] [address] Feb, [facility] [place] [facility] [address] [id number], [place] [address] Feb, [facility] [place] [facility] [address] [id number], [place] [address] 17 Feb, 2013 [facility] [place] [facility] [address] [id number] [place] [address]- [address] 17 Feb, 2013 [facility] [address] [id number] [place] [address]- [address] Feb, [facility] [place] [facility] [address] [id number] [place] [address] Feb, [facility] [place] [facility] [address] [id number] [place] [address] Jan, [facility] [place] [facility] [address] [id number] [place] [address] Jan, [facility] [place] [facility] [address] [id number] [place] [address] Jan, [facility] [place] [facility] [address] [id number] [place] [address] Dec, [facility] [place] [facility] [address] [id number] [place] [address] Dec, [facility] [place] [facility] [address] [id number] [place] [address] Nov, [facility] [place] [facility] [address] [id number] [place] [address] Nov, [facility] [place] [facility] [address] [id number] [place] [address] Nov, [facility] [place] [facility] [address] [id number] [place] [address]- [address] Nov, [facility] [place] [facility] [address] [id number] [place] [address] Oct, [facility] [place] [facility] [address] [id number] [place] [address] Oct, [facility] [place] [facility] [address] [id number] [place] [address] Oct, [facility] [place] [facility] [address] [id number] [place] [address] September, [facility] [place] [facility] [address] [id number] [place] [address] September, [facility] [address] [id number] [place] [address] September, [facility] [address] [id number] [place] [address] September, [facility] [address] [id number] [place] [address] Aug, [facility] [address] [id number] [place] [address]- [address] Aug, [facility] [address] [id number] [place] [address] Jul, [facility] [address] [id number] [place] [address] Jul, [facility] [address] [id number] [place] [address] Jul, [facility] [address] [id number] [place] [address] Jul, [facility] [address] [id number] [place] [address] Jul, [facility] [address] [id number] [place] [address] Jun, [facility] [address] [id number] [place] [address] Jun, [facility] [place] [facility] [address] [id number] [place] [address] Jun, [facility] [place] [facility] [address] [id number] [place] [address] May, [facility] [place] [facility] [address] [id number] [place] [address] May, [facility] [address] [id number], [place] [address] May, [facility] [place] [facility] [address] [id number] [place] [address] Apr, [facility] [place] [facility] [address] [id number] [place] [address] Apr, [facility] [place] [facility] [address] [id number] [place] [address] Apr, [facility] [place] [facility] [address] [id number] [place] [address] Apr, [facility] [place] [facility] [address] [id number] [place] [address] Apr, [facility] [place] [facility] [address] [id number] [place] [address] Apr, [facility] [place] [facility] [address] [id number] [place] [address] Apr, [facility] [place] [facility] [address] [id number] [place] [address] Apr, [facility] [place] [facility] [address] [id number] [place] [address] Mar, [facility] [place] [facility] [address] [id number] [place] [address] Mar, [facility] [place] [facility] [address] [id number] [place] [address] Mar, [facility] [place] [facility] [address] [id number] [place] [address] Mar, [facility] [place] [facility] [address] [id number] [place] [address] Mar, [facility] [place] [facility] [address] [id number] [place] [address] Mar, [facility] [place] [facility] [address] [id number] [place] [address] Mar, [facility] [place] [facility] [address] [id number] [place] [address] Mar, [facility] [place] [facility] [address] [id number] [place] [address] Mar, [facility] [place] [facility] [address] [id number] [place] [address] Mar, [facility] [place] [facility] [address] [id number] [place] [address] Feb, [facility] [place] [facility] [address] [id number] [place] [address] Feb, [facility] [place] [facility] [address] [id number] [place] [address] Feb, [facility] [place] [facility] [address] [id number] [place] [address] Jan, [facility] [place] [facility] [address] [id number] [place] [address] Jan, [facility] [place] [facility] [address] [id number] [place] [address] Jan, [facility] [place] [facility] [address] [id number] [place] [address]- [address] Dec, [facility] [place] [facility] [address] [id number] [place] [address] 15 Dec, 2011 [facility] [place] [facility] [address] [id number] [place] [address] Dec, [facility] [place] [facility] [address] [id number] [place] [address] Dec, [facility] [place] [facility] [address] [id number] [place] [address] Dec, [facility] [place] [facility] [address] [id number] [place] [address] Nov, [facility] [place] [facility] [address] [id number] [place] [address] Nov, [facility] [address] [id number] [place] [address] Oct, [facility] [place] [facility] [address] [id number] [place] [address] September, [facility] [place] [facility] [address] [id number] [place] [address] September, [facility] [place] [facility] [address] [id number] [place] [address] September, [facility] [place] [facility] [address] [id number] [place] [address]- [address] September, [facility] [place] [facility] [address] [id number] [place] [address] September, [facility] [place] [facility] [address] [id number] [place] [address] Aug, [facility] [place] [facility] [address] [id number] [place] [address]- [address] 16 Jul, 2011 [facility] [place] [facility] [address] [id number] [place] [address]- [address] 15 Jul, 2011 [facility] [place] [facility] [address] [id number] [place] [address]- [address]42 14 Jul, 2011 [facility] [place] [facility] [address] [id number] [place] [address]- 1543 14 Jul, 2011 [facility] [place] [facility] [address] [id number], [place] [address] Jul, [facility] [place] [facility] [address] [id number] [place] [address] Jul, [facility] [place] [facility] [address] [id number] [place] [address]- 1449 08 Jul, 2011 [facility] [place] [facility] [address] [id number] [place] [address] 05 Jul, 2011 [facility] [place] [facility] [address] [id number] [place] [address]- [address] 27 Jun, 2011 [facility] [place] [facility] [address] [id number] [place] [address]- [address] 16 Jun, 2011 [facility] [place] [facility] [address] [id number] [place] [address]- 3438 10 Jun, 2011 [facility] [place] [facility] [address] [id number] [place] [address]- [address] May, [facility] [place] [facility] [address] [id number] [place] [address]- 1638 Apr, [facility] [place] [facility] [address] [id number] [place] [address]- [address]32 Apr, [facility] [place] [facility] [address] [id number] [place] [address]- 1420 Mar, [facility] [place] [facility] [address] [id number] [place] [address]- 8035 Mar, [facility] [place] [facility] [address] [id number] [place] [address]- 4425 Mar, [facility] [place] [facility] [address] [id number] [place] [address]- 0714 Feb, [facility] [place] [facility] [address] [id number] [place] [address]- [address] Feb, [facility] [place] [facility] [address] [id number] [place] [address]- 0928 Feb, [facility] [place] [facility] [address] [id number] [place] [address]- 6711 Apr, [facility] [place] [facility] [address] [id number] [place] [address]- 8090 Apr, [facility] [place] [facility] [address] [id number] [place] [address]- 7378 Mar, [facility] [place] [facility] [address] [id number] [place] [address]- 2031 Mar, [facility] [place] [facility] [address] [id number] [place] [address]- 3878 Mar, [facility] [place] [facility] [address] [id number] [place] [address]- [address] Mar, [facility] [address] [id number] [place] [address]- 9031 Mar, [facility] [place] [facility] [address] [id number] [place] [address]- 0377 Feb, [facility] [address] [id number] [place] [address]- 5669 September, [facility] [address] [id number] [place] [address]- 9280 Aug, [facility] [address] [id number] [place] [address]- 1854 Apr, [facility] [address] [id number], [place] [address]- [address] 15 Apr, 2009 [facility] [address] [id number] [place] [address]- 58[address] Mar, [facility] [place] [facility] [address] [id number], [place] [address]- [address] Mar, [facility] [place] [facility] [address] [id number] [place] [address]- 1452 Mar, [facility] [place] [facility] [address] [id number], [place] [address] Feb, [facility] [place] [facility] [address] [id number], [place] [address]- [address] Jan, [facility] [place] [facility] [address] [id number], [place] [address]- 1033 Dec, [facility] [place] [facility] [address] [id number], [place] [address]- [address] 15 Nov, 2008 [facility] [place] [facility] [address] [id number], [place] [address] Oct, [facility] [address] [facility] [id number] [place] [address] 25[address] Apr, [facility] [address] [facility] [id number], [place] [address]- [address]46 Apr, [facility] [address] [facility] [id number], [place] [address]- [address] Apr, [facility] [address] [facility] [id number], [place] [address] 25[address] Feb, IMMUNIZATIONS No Known Immunizations SOCIAL HISTORY Never Assessed REASON FOR VISIT Rx advice PLAN OF CARE VITAL SIGNS MEDICATIONS Unknown [...]
--- OUTSIDE RECORDS SUMMARY | 2017-12-04 17:52 | XMS REPORT ---
Author Author CEDRIC LAWLER [facility] eClinicalWorks Address Unknown Phone Unavailable Care Team Providers Care Greeting Card Writer Name Role Phone CEDRIC LAWLER CP Unavailable [...] Medications Procedures Procedure Coding System Code Date X-RAY EXAM OF SHOULDER CPT-4 29402 Jan 19, 2015 Results No Known Results Summary Purpose eClinicalWorks Submission
--- OUTSIDE RECORDS SUMMARY | 2017-12-04 17:53 | XMS REPORT ---
Author Author CEDRIC LAWLER Organization [facility] Address [address] [place] [address] Care Team Providers Care Barrel Endshake Adjuster Name Role Phone CEDRIC LAWLER Unavailable PROBLEMS Type Condition ICD9-CM Code [id number] Code Onset Dates Condition Status SNOMED Code Problem Nicotine dependence, uncomplicated, unspecified nicotine product type F17.200 Active 53100315 Problem Restless leg syndrome G25.81 Active 00006808 Problem Mild persistent asthma without complication J45.30 Active 387687168 Problem RLS (restless legs syndrome) G25.81 Active 75194717 Problem Hypertension, benign I10 Active 10036469 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 [id number] Problem Abnormal CT lung screening R93.8 Active 554525292 Problem Essential hypertension I10 Active 90959608 Problem Diabetes mellitus type 2, controlled E11.9 Active 708036358 ALLERGIES No Information ENCOUNTERS Encounter Location Date Diagnosis [facility] [address] [address]- [address] September, [facility] [id number] [place] [address] 13053 -3692 Jul, Chronic cough R05 [facility] [address] [address]- [address] Jul, [facility] [id number] [place] [address] 98931- 9928 Jul, Diabetes mellitus type 2, controlled E11.9 [facility] [address] 7[address]67- 0923 14 Jul, 2017 [facility] [address] 33115- 0700 02 Jul, 2017 [facility] [address] 34965- 8907 Jun, [facility] [id number] [address] Jun, Diabetes mellitus type 2, controlled E11.9 [facility] [id number] [address] 3028 Jun, [facility] [id number] [place] [address] 83913- 3066 May, [facility] [id number] [place] [address] 55549- 0722 May, Diabetes mellitus type 2, controlled E11.9 [facility] [id number] [place] [address] 41718- 8312 Apr, [facility] [id number] [place] [address] 90786- 6980 Apr, Pneumonia of right upper lobe due to infectious organism J18.1 [facility] [id number] [address] 9347 Mar, [facility] [id number] [place] [address] 92372- 6755 Mar, [facility] [id number] [address]- 2295 Mar, [facility] [id number] [place] [address] 67616- 8646 Mar, Coughing R05 and SOB (shortness of breath) R06.02 [facility] [id number] [address]- 2559 02 Mar, 2017 Diabetes mellitus type 2, controlled E11.9 ; Coughing R05 and SOB (shortness of breath) R06.02 [facility] [address] [address]- 7629 Feb, [facility] [id number] [place] [address] 17178- 8630 Feb, [facility] [address] [address]- 0725 25 Jan, 2017 Hypertension, benign I10 and RLS (restless legs syndrome) G25.81 [facility] [id number] [place] [address] 75306- 1458 14 Jan, 2017 [facility] [id number] [place] [address] 45652- 6013 Dec, Pain in unspecified joint M25.50 and Mild persistent asthma without complication J45.30 [facility] [id number] [place] [address] 07084- 7711 Dec, [facility] [id number] [place] [address] 66473- [address] Dec, [address] lung screening R93.8 [facility] [id number] [place] [address] 17687- 4151 Dec, [facility] [id number] [place] [address] 43259- 3557 Nov, Screening for breast cancer Z12.31 [facility] [id number] [place] [address] 83516- 4314 Nov, [facility] [id number] [place] [address] 10547- 7814 Nov, Essential hypertension I10 [facility] [id number] [place] [address] 99468- 6416 Nov, Essential hypertension I10 [facility] [id number] [place] [address] 47578- 9084 Oct, Acute non-recurrent maxillary sinusitis J01.00 [facility] [id number] [place] [address] 19263- 3254 Oct, [facility] [id number] [place] [address] 25909- 0786 September, Acute non-recurrent maxillary sinusitis J01.00 [facility] [address] [address] September, Low back pain M54.5 [facility] [id number] [place] [address] 26233- 2714 September, [facility] [id number] [place] [address] 42593- 1645 Aug, Acute non-recurrent maxillary sinusitis J01.00 [facility] [id number] [place] [address] [id number] Aug, Dental examination Z01.20 [facility] [id number] [place] [address] 76354- 2907 Aug, [facility] [id number] [place] [address] 44125- 1030 Aug, [facility] [id number] [place] [address] 97683- 4762 Aug, [facility] [id number] [place] [address] 04012- 5371 Aug, Acute sinusitis J01.90 [facility] [id number] [place] [address] 50097- 4060 Jul, [facility] [id number] [place] [address] 45051- 2290 Jul, [facility] [id number] [place] [address] 56734- 5999 Jul, [facility] [id number] [place] [address] 77901- 8631 Jul, [facility] [id number] [place] [address] 52716- 0471 Jul, Frequent urination R35.0 and Acute cystitis with hematuria N30.01 [facility] [id number] [place] [address] 96487- 1560 Jul, [facility] [id number] [place] [address] 66165- 0729 Jun, [facility] [id number] [place] [address] 79379- 3638 Jun, Acute sinusitis J01.90 [facility] [id number] [place] [address] 05659- 1096 Jun, Diabetes mellitus type 2, controlled E11.9 ; Cough R05 ; Acute non-recurrent maxillary sinusitis J01.00 and 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 [facility] [id number] [place] [address] 88129- 4024 May, [facility] [id number] [place] [address] 29677- 4726 May, [facility] [id number] [place] [address] 09162- 8302 May, [facility] [id number] [place] [address] 86887- 2671 Apr, [facility] [id number] [place] [address] 67915- 6903 Apr, [facility] [id number] [place] [address] 38151- 4973 Apr, [facility] [id number] [place] [address] 89737 -8044 Apr, Acute non-recurrent maxillary sinusitis J01.00 [facility] [id number] [place] [address] 12083- 3302 Apr, [facility] [id number] [place] [address] 81394- 0576 Feb, [facility] [id number] [place] [address] 41300- 9531 Feb, [facility] [id number] [place] [address] 43775- 7004 Feb, [facility] [id number] [place] [address] 79505- 0798 Feb, [facility] [id number] [place] [address] 98923- 7986 Feb, [facility] [id number] [place] [address] 56714- 7609 Feb, [facility] [id number] [place] [address] 73440- 9520 Jan, RLS (restless legs syndrome) G25.81 ; Osteoarthritis of spine with radiculopathy, cervical region M47.22 ; Lumbar neuritis M54.16 and Left sciatic nerve pain M54.32 [facility] [id number] [place] [address] 59386- 1065 Jan, [facility] [id number] [place] [address] 19757- 1642 Dec, [facility] [id number] [place] [address] 36060- 6135 Nov, [facility] [id number] [place] [address] 01125- 9666 Nov, [facility] [id number] [place] [address] 78796- 2756 Nov, [facility] [id number] [place] [address] 40307- 7656 Nov, Restless leg syndrome G25.81 and Controlled type 2 diabetes mellitus without complication, without long-term current use of insulin E11.9 [facility] [id number] [place] [address] 90173- 5185 Nov, [facility] [id number] [place] [address] 16224- 1546 Oct, [facility] [id number] [place] [address] 71777- 4871 Oct, [facility] [id number] [place] [address] 72630- 3513 Oct, [facility] [id number] [place] [address] 35227- 3253 Oct, 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 lung screening R93.8 [facility] [id number] [place] [address] 38327- 8961 Oct, [facility] [id number] [place] [address] 76606- 8851 September, [facility] [id number] [place] [address] 85250- 3854 September, Physical exam, annual Z00.00 ; Nicotine dependence, uncomplicated, unspecified nicotine product type F17.200 ; Screening breast examination Z12.39 ; Restless leg syndrome G25.81 and Mild persistent asthma without complication J45.30 [facility] [id number] [place] [address] 46793- 1177 September, [facility] [id number] [place] [address] 60951- 5587 September, [facility] [id number] [place] [address] 05417- 9504 Aug, [facility] [id number] [place] [address] 43868- 6231 Jul, Dental examination Z01.20 and Dental caries K02.9 [facility] [id number] [place] [address] 13509- 5050 Jul, [facility] [id number] [place] [address] 99534- 5745 Jul, Diabetes mellitus type 2, controlled E11.9 and Pain in unspecified joint M25.50 [facility] [id number] [place] [address] 64981- 9287 Jul, [facility] [id number] [place] [address] 51411- 3670 Jun, Dental examination Z01.20 [facility] [id number] [place] [address] 88614- 9030 May, [facility] [id number] [place] [address] 06522- 4592 May, [facility] [id number] [place] [address] 69911- 8810 Apr, [facility] [id number] [place] [address] 43344- 6164 Mar, [facility] [id number] [place] [address] 72243- 8390 Mar, Acute sinusitis J01.90 [facility] [id number] [place] [address] 08952- 2300 Feb, [facility] [id number] [place] [address] 49088- 4937 Jan, Flu vaccine need V04.81 [facility] [id number] [place] [address] 23018- 1165 Jan, [facility] [id number] [place] [address] 00655- 1401 Jan, Pain in joint, site unspecified 719.40 [facility] [id number] [place] [address] 06584- 5830 Dec, Pain in joint, site unspecified 719.40 [facility] [id number] [place] [address] 54941- 4552 Dec, [facility] [id number] [place] [address] 26719- 8452 Dec, [facility] [id number] [place] [address] 54254- 6463 Dec, Sciatica 724.3 ; Restless legs syndrome [RLS] 333.94 and Encounter for smoking cessation counseling V65.42 [facility] [address] [id number] [place] [address]- 1766 Dec, Nicotine dependence 305.1 [facility] [place] [facility] [address] [id number] [place] [address]- 1907 Nov, [facility] [place] [facility] [address] [facility] [id number] [place] [address]- 5675 Oct, [facility] [place] [facility] [address] [id number] [place] [address]- 1203 Oct, [facility] [place] [facility] [address] [id number] [place] [address]- 6368 September, [facility] [place] [facility] [address] [id number] [place] [address]- 2653 Aug, [facility] [place] [facility] [address] [facility] [id number] [place] [address]- 5404 Aug, [facility] [place] [facility] [address] [facility] [id number] [address]- 4338 Jul, [facility] [place] [facility] [address] [facility] [id number] [place] [address]- 5506 Jul, [facility] [place] [facility] [id number] [address]- 1072 Jul, [facility] [place] [facility] [id number] [address]- 8079 Jun, [facility] [place] [facility] [address] [id number] [address]- 9216 Jun, [facility] [place] [facility] [address] [facility] [id number] [place] [address]- 0703 Jun, [facility] [place] [facility] [address] [facility] [id number] [address]- 1935 Jun, [facility] [place] [facility] [address] [facility] [id number] [address]- 0950 May, [facility] [place] [facility] [address] [facility] [id number] [address]- 3479 May, [facility] [address] [id number] [place] [address]- 1995 May, [facility] [place] [facility] [address] [id number] [place] [address]- 8560 May, [facility] [place] [facility] [address] [id number] [place] [address]- 9828 May, [facility] [place] [facility] [address] [id number] [place] [address]- 1007 May, [facility] [place] [facility] [address] [id number] [place] [address]- 5606 May, [facility] [place] [facility] [address] [id number] [place] [address]- 5127 Apr, [facility] [address] [id number] [place] [address]- 1666 Apr, [facility] [place] [facility] [address] [id number] [place] [address]- 7075 Apr, [facility] [place] [facility] [address] [id number] [place] [address]- 5483 Apr, [facility] [place] [facility] [address] [facility] [id number] [place] [address]- 3541 Apr, [facility] [place] [facility] [address] [id number] [place] [address]- 7587 Apr, [facility] [place] [facility] [address] [id number] [place] [address]- 3695 Apr, [facility] [place] [facility] [address] [id number] [place] [address]- 4253 Apr, [facility] [place] [facility] [address] [id number] [place] [address]- 3042 Apr, [facility] [place] [facility] [address] [id number] [place] [address]- 8805 Apr, [facility] [place] [facility] [address] [id number] [place] [address]- 3910 07 Mar, 2014 [facility] [place] [facility] [address] [id number] [place] [address]- 9967 07 Mar, 2014 [facility] [place] [facility] [address] [id number] [place] [address]- 4872 Mar, [facility] [place] [facility] [address] [id number] [place] 5371 Mar, [facility] [place] [facility] [address] [id number] [place] [address]- 4852 Mar, [facility] [place] [facility] [address] [id number] [place] [address]- 8638 Mar, [facility] [place] [facility] [address] [id number] [place] [address]- 1643 15 Feb, 2014 [facility] [place] [facility] [address] [id number] [place] [address]- 1304 15 Feb, 2014 [facility] [place] [facility] [address] [id number] [place] [address]- 4947 10 Feb, 2014 [facility] [place] [facility] [address] [id number] [place] [address]- 5101 10 Feb, 2014 [facility] [place] [facility] [address] [id number] [place] [address]- 4349 10 Feb, 2014 [facility] [place] [facility] [address] [id number] [place] [address]- 5982 10 Feb, 2014 [facility] [place] [facility] [address] [id number] [place] [address]- 2009 22 Jan, 2014 [facility] [place] [facility] [address] [id number] [place] [address]- 3274 22 Jan, 2014 [facility] [place] [facility] [address] [id number] [place] [address]- 2369 11 Jan, 2014 [facility] [place] [facility] [address] [id number] [place] [address]- 0890 Jan, [facility] [place] [facility] [address] [id number] [place] [address]- 2452 Dec, [facility] [place] [facility] [address] [id number] [place] [address]- 3377 Dec, [facility] [place] [facility] [address] [id number] [place] [address]- 0745 Dec, [facility] [place] [facility] [address] [id number] [place] [address]- 6091 Dec, [facility] [place] [facility] [address] [id number] [place] [address]- 0454 Dec, [facility] [place] [facility] [address] [id number] [place] [address]- 1890 Nov, [facility] [place] [facility] [address] [id number] [place] [address]- 1417 Nov, [facility] [place] [facility] [address] [id number] [place] [address]- 7837 Nov, [facility] [place] [facility] [address] [id number] [place] [address]- 1785 Nov, [facility] [place] [facility] [address] [id number] [place] [address]- 2226 Nov, [facility] [place] [facility] [address] [id number] [place] [address]- 2048 Nov, [facility] [place] [facility] [address] [id number] [place] [address]- 9349 Oct, [facility] [place] [facility] [address] [id number] [place] [address]- 7213 Oct, [facility] [place] [facility] [address] [id number] [place] [address]- 9572 September, [facility] [place] [facility] [address] [id number] [place] [address]- 0287 September, [facility] [place] [facility] [address] [id number] [place] [address]- 9117 14 Sep, 2013 [facility] [place] [facility] [address] [id number] [place] [address]- 4569 14 Sep, 2013 [facility] [place] [facility] [address] [id number] [place] [address]- 3977 14 Aug, 2013 [facility] [place] [facility] [address] [id number] [place] [address]- 5018 Aug, [facility] [place] [facility] [address] [id number] [place] [address]- 2910 17 Jul, 2013 [facility] [place] [facility] [address] [id number] [place] [address]- 8607 17 Jul, 2013 [facility] [place] [facility] [address] [id number] [place] [address]- 1341 Jul, [facility] [place] [facility] [address] [id number] [place] [address]- 0150 Jul, [facility] [place] [facility] [address] [id number] [place] [address]- 1163 Jun, [facility] [place] [facility] [address] [id number] [place] [address]- 9986 Jun, [facility] [place] [facility] [address] [id number] [place] [address] Jun, [facility] [place] [facility] [address] [id number] [place] [address] Jun, [facility] [place] [facility] [address] [id number] [place] [address] May, [facility] [place] [facility] [address] [id number] [place] [address] May, [facility] [place] [facility] [address] [id number] [place] [address] May, [facility] [place] [facility] [address] [id number] [place] [address] May, [facility] [place] [facility] [address] [id number] [place] [address] Apr, [facility] [place] [facility] [address] [id number] [place] [address] Apr, [facility] [place] [facility] [address] [id number] [place] [address] Apr, [facility] [place] [facility] [address] [id number] [place] [address] Mar, [facility] [place] [facility] [address] [id number] [place] [address] Mar, [facility] [place] [facility] [address] [id number] [place] [address] Mar, [facility] [place] [facility] [address] [id number] [place] [address] Mar, [facility] [place] [facility] [address] [id number][place] [address] Feb, [facility] [place] [facility] [address] [id number] [place] [address] Feb, [facility] [place] [facility] [address] [id number] [address] Feb, [facility] [place] [facility] [address] [id number][place] [address] Feb, [facility] [place] [facility] [address] [id number][place] [address] Feb, [facility] [place] [facility] [address] [id number], [place] [address] Feb, [facility] [place] [facility] [address] [id number], [place] [address] Feb, [facility] [place] [facility] [address] [id number] [address] Feb, [facility] [place] [facility] [address] [id number][place] [address] Jan, [facility] [address] [id number] [place] [address] Jan, [facility] [place] [facility] [address] [id number] [place] [address] Jan, [facility] [address] [id number] [place] [address] 47[address] Dec, [facility] [place] [facility] [address] [id number] [place] [address] Dec, [facility] [address] [id number] [place] [address] Nov, [facility] [address] [id number] [place] [address] Nov, [facility] [address] [id number] [place] [address] Nov, [facility] [address] [id number] [place] [address] Nov, [facility] [address] [id number] [place] [address] Oct, [facility] [address] [id number] [place] [address] Oct, [facility] [address] [id number] [place] [address] Oct, [facility] [place] [facility] [address] [id number] [place] [address] September, [facility] [place] [facility] [address] [id number] [place] [address] September, [facility] [place] [facility] [address] [id number] [place] [address]- [address] September, [facility] [place] [facility] [address] [id number] [place] [address]- [address] September, [facility] [place] [facility] [address] [id number] [place] [address] Aug, [facility] [address] [id number] [place] [address] Aug, [facility] [place] [facility] [address] [id number] [place] [address] Jul, [facility] [place] [facility] [address] [id number] [place] [address] Jul, [facility] [place] [facility] [address] [id number] [place] [address]- [address] 06 Jul, 2012 [facility] [place] [facility] [address] [id number] [place] [address]- [address] 05 Jul, 2012 [facility] [place] [facility] [address] [id number] [place] [address] Jul, [facility] [place] [facility] [address] [id number] [place] [address] Jun, [facility] [place] [facility] [address] [id number] [place] [address] Jun, [facility] [place] [facility] [address] [id number] [place] [address] Jun, [facility] [place] [facility] [address] [id number] [place] [address] May, [facility] [place] [facility] [address] [id number] [place] [address] May, [facility] [place] [facility] [address] [id number] [place] [address]- 89[address] May, [facility] [facility] [address] [id number] [place] [address] Apr, [facility] [place] [facility] [address] [id number] [place] [address] Apr, [facility] [place] [facility] [address] [id number], [place] [address] Apr, [facility] [place] [facility] [address] [id number] [place] [address] Apr, [facility] [place] [facility] [address] [id number] [place] [address] Apr, [facility] [place] [facility] [address] [facility] [id number] [place] [address] Apr, [facility] [place] [facility] [address] [id number] [id number] [address] Apr, [facility] [place] [facility] [address] [id number] [place] [address] Apr, [facility] [place] [facility] [address] [id number] [place] [address] Mar, [facility] [place] [facility] [address] [id number] [place] [address] Mar, [facility] [place] [facility] [address] [id number] [address] Mar, [facility] [place] [facility] [address] [id number] [place] [address] 77[address] Mar, [facility] [place] [facility] [address] [id number] [place] [address] Mar, [facility] [facility] [address] [id number][place] [address] Mar, [facility] [place] [facility] [address] [id number][place] [address] Mar, [facility] [facility] [address] [id number], [place] [address] Mar, [facility] [facility] [address] [facility] [id number], [place] [address] Mar, [facility] [place] [facility] [address] [facility] [id number][place] [address] Mar, [facility] [place] [facility] [address] [id number] [place] [address] 2017 Feb, [facility] [address] [id number] [place] [address] Feb, [facility] [place] [facility] [address] [id number] [place] [address] Feb, [facility] [address] [id number] [place] [address] Jan, [facility] [place] [facility] [address] [id number] [place] [address] 89[address] Jan, [facility] [place] [facility] [address] [id number] [place] [address] Jan, [facility] [place] [facility] [address] [id number] [place] [address] Dec, [facility] [place] [facility] [address] [id number] [place] [address] Dec, [facility] [address] [id number] [place] [address]97 Dec, [facility] [address] [id number] [place] [address]483 Dec, [facility] [address] [id number] [place] [address]- [address] Dec, [facility] [address] [id number] [place] [address] Nov, [facility] [place] [facility] [address] [id number] [place] [address] 86[address] Nov, [facility] [address] [id number] [place] [address]70 Oct, [facility] [address] [id number] [place] [address] September, [facility] [address] [id number] [place] [address] 4796 September, [facility] [address] [id number] [place] [address] September, [facility] [facility] [address] [id number] [place] [address]- [address] September, [facility] [facility] [address] [id number] [place] [address] September, [facility] [place] [facility] [address] [id number] [place] [address] Aug, [facility] [place] [facility] [address] [id number] [place] [address]- [address] 16 Jul, 2011 [facility] [address] [id number] [place] [address] 15 Jul, 2011 [facility] [address] [id number] [place] [address]- 1836 14 Jul, 2011 [facility] [address] [id number] [place] [address]- 8784 14 Jul, 2011 [facility] [address] [id number] [place] [address]- [address] Jul, [facility] [address] [id number] [place] [address]- 0926 Jul, [facility] [address] [id number] [place] [address]- [address] Jul, [facility] [address] [id number] [place] [address]- [address]206 05 Jul, 2011 [facility] [address] [id number] [place] [address]- 1236 Jun, [facility] [address] [id number] [place] [address]- [address] 16 Jun, 2011 [facility] [address] [id number] [place] [address]- 7026 Jun, [facility] [address] [id number] [place] [address]- 8415 10 May, 2011 [facility] [facility] [address] [id number] [place] [address]- 0852 Apr, [facility] [address] [id number] [place] [address]- 8790 Apr, [facility] [address] [id number] [place] [address]76 Mar, [facility] [address] [id number] [place] [address] Mar, [facility] [address] [id number] [place] [address]- 1447 Mar, [facility] [place] [facility] [address] [id number] [place] [address]761 Feb, [facility] [address] [id number] [place] [address]- 8588 Feb, [facility] [address] [id number] [place] [address]- 6[address] Feb, [facility] [address] [id number] [place] [address]- 2857 Apr, [facility] [address] [facility] [id number] [place] [address] 0812 Apr, [facility] [address] [id number] [place] [address]- 4729 Mar, [facility] [address] [id number] [place] [address]- 8627 Mar, [facility] [address] [id number] [place] [address]- 6142 Mar, [facility] [address] [id number] [place] [address]- 9927 Mar, [facility] [address] [facility] [id number] [place] [address]- 1716 Mar, [facility] [address] [id number] [place] [address]- 4434 13 Feb, 2010 [facility] [address] [id number] [place] [address]- 0067 September, [facility] [address] [id number] [place] [address]- 0524 Aug, [facility] [address] [id number] [place] [address]- 5284 Apr, [facility] [address] [id number] [place] [address]- 9136 15 Apr, 2009 [facility] [address] [id number] [place] [address]- 6396 Mar, [facility] [address] [facility] [id number] [place] [address]- 7053 Mar, [facility] [facility] [address] [id number] [place] [address]- 0915 Mar, [facility] [address] [id number] [place] [address]- 9021 Feb, [facility] [address] [id number] [place] [address]- 6262 18 Jan, 2009 [facility] [facility] [address] [id number] [place] [address]- 0507 Dec, [facility] [address] [id number][place] [address] 15 Nov, 2008 [facility] [address] [id number] [place] [address]- [address] Oct, [facility] [address] [id number] [place] [address]- 8841 Apr, [facility] [address] [id number] [place] [address]- 7457 Apr, [facility] [address] [id number][place] [address] Apr, [facility] [address] [facility] [id number] [place] [address] Feb, IMMUNIZATIONS No Known Immunizations SOCIAL HISTORY Never Assessed REASON FOR VISIT CT- chest low dose PLAN OF CARE VITAL SIGNS MEDICATIONS Unknown Medications RESULTS Name Result Date Reference Range CT Scan : Chest, low dose 2016-12-28 PROCEDURES No Known procedures INSTRUCTIONS MEDICATIONS ADMINISTERED [...]
--- OUTSIDE RECORDS SUMMARY | 2017-12-04 17:53 | XMS REPORT ---
Author Author CEDRIC LAWLER Organization [facility] Address [address] [place] [address] Care Team Providers Care Door Clamper Name Role Phone CEDRIC LAWLER Unavailable PROBLEMS Type Condition ICD9-CM Code EZA38-RU Code Onset Dates Condition Status SNOMED Code Problem Nicotine dependence, uncomplicated, unspecified nicotine product type F17.200 Active 97507915 Problem Restless leg syndrome G25.81 Active 89495442 Problem Mild persistent asthma without complication J45.30 Active 713146515 Problem RLS (restless legs syndrome) G25.81 Active 92690301 Problem Hypertension, benign I10 Active 35993952 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 [id number] Problem Abnormal CT lung screening R93.8 Active 851434531 Problem Essential hypertension I10 Active 69439044 Problem Diabetes mellitus type 2, controlled E11.9 Active 275323369 ALLERGIES No Information ENCOUNTERS Encounter Location Date Diagnosis [facility] [address] [address] September, [facility] [id number] [place] [address] 77755 -8003 Jul, Chronic cough R05 [facility] [address] 7[address]- 5290 Jul, [facility] [id number] [place] [address] 75357- 5128 Jul, Diabetes mellitus type 2, controlled E11.9 [facility] [address] [address]- 3084 14 Jul, 2017 [facility] [address] 54[address]- 6051 02 Jul, 2017 [facility] [address] 13400- 2174 Jun, [facility] [address] [address] 3[address] Jun, Diabetes mellitus type 2, controlled E11.9 [facility] [address] [address] 5195 Jun, [facility] [id number] [place] [address] 94619- 9971 May, [facility] [id number] [place] [address] 18837- 1280 May, Diabetes mellitus type 2, controlled E11.9 [facility] [id number] [place] [address] 20152- 3455 Apr, [facility] [id number] [place] [address] 98069- 1376 Apr, Pneumonia of right upper lobe due to infectious organism J18.1 [facility] [id number] [address] 8090 Mar, [facility] [id number] [place] [address] 91484- 3805 Mar, [facility] [address] [address]- 7883 Mar, [facility] [id number] [place] [address] 30187- 2131 Mar, Coughing R05 and SOB (shortness of breath) R06.02 [facility] [address] [address]- 2182 02 Mar, 2017 Diabetes mellitus type 2, controlled E11.9 ; Coughing R05 and SOB (shortness of breath) R06.02 [facility] [address] [address]- 0009 Feb, [facility] [id number] [place] [address] 68860- 0123 Feb, [facility] [address], [place] [address]- 6877 25 Jan, 2017 Hypertension, benign I10 and RLS (restless legs syndrome) G25.81 [facility] [id number] [place] [address] 97492- 4745 14 Jan, 2017 [facility] [id number] [place] [address] 78911- 2614 Dec, Pain in unspecified joint M25.50 and Mild persistent asthma without complication J45.30 [facility] [id number] [place] [address] 86902- 5041 Dec, [facility] [id number] [place] [address] 12266- [address] Dec, [address] lung screening R93.8 [facility] [id number] [place] [address] 20573- 1913 Dec, [facility] [id number] [place] [address] 13341- 8795 Nov, Screening for breast cancer Z12.31 [facility] [id number] [place] [address] 24331- 4575 Nov, [facility] [id number] [place] [address] 36693- 3718 Nov, Essential hypertension I10 [facility] [id number] [place] [address] 79077- 4177 Nov, Essential hypertension I10 [facility] [id number] [place] [address] 62326- 3913 Oct, Acute non-recurrent maxillary sinusitis J01.00 [facility] [id number] [place] [address] 31630- 4875 Oct, [facility] [id number] [place] [address] 03447- 1698 September, Acute non-recurrent maxillary sinusitis J01.00 [facility] [address], [place] [address] September, Low back pain M54.5 [facility] [id number] [place] [address] 16520- 7609 September, [facility] [id number] [place] [address] 53919- 9715 Aug, Acute non-recurrent maxillary sinusitis J01.00 [facility] [id number] [place] [address] [id number] Aug, Dental examination Z01.20 [facility] [id number] [place] [address] 97894- 6413 Aug, [facility] [id number] [place] [address] 37259- 8997 Aug, [facility] [id number] [place] [address] 49415- 3842 Aug, [facility] [id number] [place] [address] 06775- 0110 Aug, Acute sinusitis J01.90 [facility] [id number] [place] [address] 29354- 4435 Jul, [facility] [id number] [place] [address] 23849- 0995 Jul, [facility] [id number] [place] [address] 51868- 5479 Jul, [facility] [id number] [place] [address] 39411- 5258 Jul, [facility] [id number] [place] [address] 14528- 6993 Jul, Frequent urination R35.0 and Acute cystitis with hematuria N30.01 [facility] [id number] [place] [address] 02510- 4962 Jul, [facility] [id number] [place] [address] 52318- 6015 Jun, [facility] [id number] [place] [address] 77320- 5626 Jun, Acute sinusitis J01.90 [facility] [id number] [place] [address] 91124- 2535 Jun, Diabetes mellitus type 2, controlled E11.9 ; Cough R05 ; Acute non-recurrent maxillary sinusitis J01.00 and 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 [facility] [id number] [place] [address] 22795- 9019 May, [facility] [id number] [place] [address] 50876- 9616 May, [facility] [id number] [place] [address] 16252- 2124 May, [facility] [id number] [place] [address] 61183- 0197 Apr, [facility] [id number] [place] [address] 53962- 9820 Apr, [facility] [id number] [place] [address] 36716- 3226 Apr, [facility] [id number] [place] [address] 09864 -8585 Apr, Acute non-recurrent maxillary sinusitis J01.00 [facility] [id number] [place] [address] 95836- 9423 Apr, [facility] [id number] [place] [address] 50213- 2313 Feb, [facility] [id number] [place] [address] 21224- 7156 Feb, [facility] [id number] [place] [address] 52615- 2125 Feb, [facility] [id number] [place] [address] 84028- 6326 Feb, [facility] [id number] [place] [address] 33091- 4304 Feb, [facility] [id number] [place] [address] 40913- 1063 Feb, [facility] [id number] [place] [address] 58285- 9295 Jan, RLS (restless legs syndrome) G25.81 ; Osteoarthritis of spine with radiculopathy, cervical region M47.22 ; Lumbar neuritis M54.16 and Left sciatic nerve pain M54.32 [facility] [id number] [place] [address] 29133- 7063 Jan, [facility] [id number] [place] [address] 65749- 8943 Dec, [facility] [id number] [place] [address] 33752- 7032 Nov, [facility] [id number] [place] [address] 03939- 7319 Nov, [facility] [id number] [place] [address] 87500- 8550 Nov, [facility] [id number] [place] [address] 94135- 5277 Nov, Restless leg syndrome G25.81 and Controlled type 2 diabetes mellitus without complication, without long-term current use of insulin E11.9 [facility] [id number] [place] [address] 96867- 5841 Nov, [facility] [id number] [place] [address] 43290- 1567 Oct, [facility] [id number] [place] [address] 43896- 5242 Oct, [facility] [id number] [place] [address] 28537- 2440 Oct, [facility] [id number] [place] [address] 61648- 1922 Oct, 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 lung screening R93.8 [facility] [id number] [place] [address] 16713- 8269 Oct, [facility] [id number] [place] [address] 40215- 5996 September, [facility] [id number] [place] [address] 55401- 2106 September, Physical exam, annual Z00.00 ; Nicotine dependence, uncomplicated, unspecified nicotine product type F17.200 ; Screening breast examination Z12.39 ; Restless leg syndrome G25.81 and Mild persistent asthma without complication J45.30 [facility] [id number] [place] [address] 55522- 8920 September, [facility] [id number] [place] [address] 93105- 9712 September, [facility] [id number] [place] [address] 32876- 2679 Aug, [facility] [id number] [place] [address] 85487- 9159 Jul, Dental examination Z01.20 and Dental caries K02.9 [facility] [id number] [place] [address] 36490- 7337 Jul, [facility] [id number] [place] [address] 63033- 3796 Jul, Diabetes mellitus type 2, controlled E11.9 and Pain in unspecified joint M25.50 [facility] [id number] [place] [address] 47005- 2533 Jul, [facility] [id number] [place] [address] 35723- 1224 Jun, Dental examination Z01.20 [facility] [id number] [place] [address] 16106- 6194 May, [facility] [id number] [place] [address] 53512- 8445 May, [facility] [id number] [place] [address] 75115- 1749 Apr, [facility] [id number] [place] [address] 60298- 6885 Mar, [facility] [id number] [place] [address] 16931- 9036 Mar, Acute sinusitis J01.90 [facility] [id number] [place] [address] 07714- 6141 Feb, [facility] [id number] [place] [address] 40090- 9255 Jan, Flu vaccine need V04.81 [facility] [id number] [place] [address] 44657- 6348 Jan, [facility] [id number] [place] [address] 34283- 9881 Jan, Pain in joint, site unspecified 719.40 [facility] [id number] [place] [address] 47921- 0232 Dec, Pain in joint, site unspecified 719.40 [facility] [id number] [place] [address] 78397- 6058 Dec, [facility] [id number] [place] [address] 23909- 6074 Dec, [facility] [id number] [place] [address] 62375- 9804 Dec, Sciatica 724.3 ; Restless legs syndrome [RLS] 333.94 and Encounter for smoking cessation counseling V65.42 [facility] [address] [id number] [place] [address]- 8526 Dec, Nicotine dependence 305.1 [facility] [place] [facility] [address] [id number] [place] [address]- 2812 Nov, [facility] [place] [facility] [address] [facility] [id number] [place] [address]- 9312 Oct, [facility] [place] [facility] [address] [id number] [place] [address]- 9590 Oct, [facility] [place] [facility] [address] [id number] [place] [address]- 2381 September, [facility] [place] [facility] [address] [id number] [place] [address]- 5804 Aug, [facility] [place] [facility] [address] [facility] [id number] [place] [address]- 3722 Aug, [facility] [place] [facility] [address] [facility] [id number], [place] [address]- 3512 Jul, [facility] [place] [facility] [address] [facility] [id number] [place] [address]- 9734 Jul, [facility] [place] [facility] [id number] [address]- 2664 Jul, [facility] [place] [facility] [id number] [address]- 6265 Jun, [facility] [place] [facility] [address] [id number], [place] [address]- 3025 Jun, [facility] [place] [facility] [address] [facility] [id number] [place] [address]- 3546 Jun, [facility] [place] [facility] [address] [facility] [id number], [place] [address]- 5663 Jun, [facility] [place] [facility] [address] [facility] [id number], [place] [address]- 8236 May, [facility] [place] [facility] [address] [facility] [id number], [place] [address]- 9366 May, [facility] [address] [id number] [place] [address]- 5601 May, [facility] [place] [facility] [address] [id number] [place] [address]- 5515 May, [facility] [place] [facility] [address] [id number] [place] [address]- 2766 May, [facility] [place] [facility] [address] [id number] [place] [address]- 9673 May, [facility] [place] [facility] [address] [id number] [place] [address]- 5612 May, [facility] [place] [facility] [address] [id number] [place] [address]- 8733 Apr, [facility] [address] [id number] [place] [address]- 9795 Apr, [facility] [place] [facility] [address] [id number] [place] [address]- 7236 Apr, [facility] [place] [facility] [address] [id number] [place] [address]- 4834 Apr, [facility] [place] [facility] [address] [facility] [id number] [place] [address]- 1141 Apr, [facility] [place] [facility] [address] [id number] [place] [address]- 8775 Apr, [facility] [place] [facility] [address] [id number] [place] [address]- 5396 Apr, [facility] [place] [facility] [address] [id number] [place] [address]- 3296 Apr, [facility] [place] [facility] [address] [id number] [place] [address]- 0566 Apr, [facility] [place] [facility] [address] [id number] [place] [address]- 1177 Apr, [facility] [place] [facility] [address] [id number] [place] [address]- 7730 07 Mar, 2014 [facility] [place] [facility] [address] [id number] [place] [address]- 3128 07 Mar, 2014 [facility] [place] [facility] [address] [id number] [place] [address]- 4571 Mar, [facility] [place] [facility] [address] [id number] [place] 8437 Mar, [facility] [place] [facility] [address] [id number] [place] [address]- 5484 Mar, [facility] [place] [facility] [address] [id number] [place] [address]- 0905 Mar, [facility] [place] [facility] [address] [id number] [place] [address]- 9155 15 Feb, 2014 [facility] [place] [facility] [address] [id number] [place] [address]- 9619 15 Feb, 2014 [facility] [place] [facility] [address] [id number] [place] [address]- 4733 10 Feb, 2014 [facility] [place] [facility] [address] [id number] [place] [address]- 2041 10 Feb, 2014 [facility] [place] [facility] [address] [id number] [place] [address]- 2494 10 Feb, 2014 [facility] [place] [facility] [address] [id number] [place] [address]- 6454 10 Feb, 2014 [facility] [place] [facility] [address] [id number] [place] [address]- 5636 22 Jan, 2014 [facility] [place] [facility] [address] [id number] [place] [address]- 7209 22 Jan, 2014 [facility] [place] [facility] [address] [id number] [place] [address]- 5020 11 Jan, 2014 [facility] [place] [facility] [address] [id number] [place] [address]- 1590 Jan, [facility] [place] [facility] [address] [id number] [place] [address]- 7710 Dec, [facility] [place] [facility] [address] [id number] [place] [address]- 3601 Dec, [facility] [place] [facility] [address] [id number] [place] [address]- 9476 Dec, [facility] [place] [facility] [address] [id number] [place] [address]- 4958 Dec, [facility] [place] [facility] [address] [id number] [place] [address]- 8105 Dec, [facility] [place] [facility] [address] [id number] [place] [address]- 7813 Nov, [facility] [place] [facility] [address] [id number] [place] [address]- 1999 Nov, [facility] [place] [facility] [address] [id number] [place] [address]- 6656 Nov, [facility] [place] [facility] [address] [id number] [place] [address]- 4139 Nov, [facility] [place] [facility] [address] [id number] [place] [address]- 9881 Nov, [facility] [place] [facility] [address] [id number] [place] [address]- 9231 Nov, [facility] [place] [facility] [address] [id number] [place] [address]- 5977 Oct, [facility] [place] [facility] [address] [id number] [place] [address]- 4594 Oct, [facility] [place] [facility] [address] [id number] [place] [address]- 9491 September, [facility] [place] [facility] [address] [id number] [place] [address] September, [facility] [place] [facility] [address] [id number] [place] [address] 14 Sep, 2013 [facility] [place] [facility] [address] [id number] [place] [address] 14 Sep, 2013 [facility] [place] [facility] [address] [id number] [place] [address] 14 Aug, 2013 [facility] [place] [facility] [address] [id number] [place] [address] Aug, [facility] [place] [facility] [address] [id number] [place] [address] 17 Jul, 2013 [facility] [place] [facility] [address] [id number] [place] [address] 17 Jul, 2013 [facility] [place] [facility] [address] [id number] [place] [address] Jul, [facility] [place] [facility] [address] [id number] [place] [address] Jul, [facility] [place] [facility] [address] [id number] [place] [address] Jun, [facility] [place] [facility] [address] [id number] [place] [address] Jun, [facility] [place] [facility] [address] [id number] [place] [address] Jun, [facility] [place] [facility] [address] [id number] [place] [address] Jun, [facility] [place] [facility] [address] [id number] [place] [address] May, [facility] [place] [facility] [address] [id number] [place] [address] May, [facility] [place] [facility] [address] [id number] [place] [address] May, [facility] [place] [facility] [address] [id number] [place] [address] May, [facility] [place] [facility] [address] [id number] [place] [address] Apr, [facility] [place] [facility] [address] [id number] [place] [address] Apr, [facility] [place] [facility] [address] [id number] [place] [address] Apr, [facility] [place] [facility] [address] [id number] [place] [address] Mar, [facility] [place] [facility] [address] [id number] [place] [address] Mar, [facility] [place] [facility] [address] [id number] [place] [address] Mar, [facility] [place] [facility] [address] [id number] [place] [address] Mar, [facility] [place] [facility] [address] [id number], [place] [address] Feb, [facility] [place] [facility] [address] [id number] [place] [address] Feb, [facility] [place] [facility] [address] [id number], [place] [address] Feb, [facility] [place] [facility] [address] [id number], [place] [address] Feb, [facility] [place] [facility] [address] [id number], [place] [address] Feb, [facility] [place] [facility] [address] [id number], [place] [address] Feb, [facility] [place] [facility] [address] [id number], [place] [address] Feb, [facility] [place] [facility] [address] [id number] [address] Feb, [facility] [place] [facility] [address] [id number], [place] [address] Jan, [facility] [address] [id number] [place] [address] Jan, [facility] [place] [facility] [address] [id number] [place] [address] Jan, [facility] [address] [id number] [place] [address] Dec, [facility] [place] [facility] [address] [id number] [place] [address] Dec, [facility] [address] [id number] [place] [address] Nov, [facility] [address] [id number] [place] [address] Nov, [facility] [address] [id number] [place] [address] Nov, [facility] [address] [id number] [place] [address]- [address] Nov, [facility] [address] [id number] [place] [address] Oct, [facility] [address] [id number] [place] [address]- [address] Oct, [facility] [address] [id number] [place] [address] Oct, [facility] [place] [facility] [address] [id number] [place] [address] September, [facility] [place] [facility] [address] [id number] [place] [address]- [address] September, [facility] [place] [facility] [address] [id number] [place] [address] 7948 September, [facility] [place] [facility] [address] [id number] [place] [address] September, [facility] [place] [facility] [address] [id number] [place] [address] Aug, [facility] [address] [id number] [place] [address] Aug, [facility] [place] [facility] [address] [id number] [place] [address]- [address] Jul, [facility] [place] [facility] [address] [id number] [place] [address] Jul, [facility] [place] [facility] [address] [id number] [place] [address] 06 Jul, 2012 [facility] [place] [facility] [address] [id number] [place] [address] 05 Jul, 2012 [facility] [place] [facility] [address] [id number] [place] [address] Jul, [facility] [place] [facility] [address] [id number] [place] [address] Jun, [facility] [place] [facility] [address] [id number] [place] [address] Jun, [facility] [place] [facility] [address] [id number] [place] [address] Jun, [facility] [place] [facility] [address] [id number] [place] [address] May, [facility] [place] [facility] [address] [id number] [place] [address] 139[address] May, [facility] [place] [facility] [address] [id number] [place] [address] May, [facility] [place] [facility] [address] [id number] [place] [address] Apr, [facility] [place] [facility] [address] [id number] [place] [address] Apr, [facility] [place] [facility] [address] [id number], [place] [address] Apr, [facility] [place] [facility] [address] [id number] [place] [address] 28[address] Apr, [facility] [place] [facility] [address] [id number] [place] [address] Apr, [facility] [place] [facility] [address] [facility] [id number] [place] [address] Apr, [facility] [place] [facility] [address] [id number] [place] [address] Apr, [facility] [place] [facility] [address] [id number] [place] [address] Apr, [facility] [place] [facility] [address] [id number] [place] [address] Mar, [facility] [place] [facility] [address] [id number] [place] [address] Mar, [facility] [place] [facility] [address] [id number], [place] [address] Mar, [facility] [place] [facility] [address] [id number] [place] [address]28 Mar, [facility] [place] [facility] [address] [id number] [place] [address]- [address] Mar, [facility] [place] [facility] [address] [id number], [place] [address] Mar, [facility] [place] [facility] [address] [id number], [place] [address] Mar, [facility] [place] [facility] [address] [id number], [place] [address] Mar, [facility] [place] [facility] [address] [facility] [id number], [place] [address] Mar, [facility] [place] [facility] [address] [facility] [id number], [place] [address] Mar, [facility] [place] [facility] [address] [id number] [place] [address] Feb, [facility] [address] [id number] [place] [address] Feb, [facility] [place] [facility] [address] [id number] [place] [address] Feb, [facility] [address] [id number] [place] [address] Jan, [facility] [place] [facility] [address] [id number] [place] [address] Jan, [facility] [place] [facility] [address] [id number] [place] [address] 67[address] Jan, [facility] [place] [facility] [address] [id number] [place] [address] 9658 Dec, [facility] [place] [facility] [address] [id number] [place] [address]89 Dec, [facility] [address] [id number] [place] [address] 136[address] Dec, [facility] [place] [facility] [address] [id number] [place] [address] 5713 Dec, [facility] [address] [id number] [place] [address] 1239 Dec, [facility] [place] [facility] [address] [id number] [place] [address] Nov, [facility] [place] [facility] [address] [id number] [place] [address]143 Nov, [facility] [place] [facility] [address] [id number] [place] [address] Oct, [facility] [place] [facility] [address] [id number] [place] [address] 27[address] September, [facility] [place] [facility] [address] [id number] [place] [address]309 September, [facility] [address] [id number] [place] [address] 6[address] September, [facility] [place] [facility] [address] [id number] [place] [address] 2076 September, [facility] [place] [facility] [address] [id number] [place] [address] 8226 September, [facility] [place] [facility] [address] [id number] [place] [address]76 Aug, [facility] [place] [facility] [address] [id number] [place] [address]- [address]68 16 Jul, 2011 [facility] [place] [facility] [address] [id number] [place] [address] 0456 15 Jul, 2011 [facility] [place] [facility] [address] [id number] [place] [address]- 3512 14 Jul, 2011 [facility] [place] [facility] [address] [id number] [place] [address]- 5869 14 Jul, 2011 [facility] [place] [facility] [address] [id number] [place] [address]- 7[address] Jul, [facility] [place] [facility] [address] [id number] [place] [address]- 8146 Jul, [facility] [place] [facility] [address] [id number] [place] [address]- 4366 Jul, [facility] [place] [facility] [address] [id number] [place] [address]- 1636 05 Jul, 2011 [facility] [place] [facility] [address] [id number] [place] [address] 9606 Jun, [facility] [place] [facility] [address] [id number] [place] [address]- 7956 16 Jun, 2011 [facility] [place] [facility] [address] [id number] [place] [address]- 8826 Jun, [facility] [place] [facility] [address] [id number] [place] [address]- 7875 10 May, 2011 [facility] [place] [facility] [address] [id number] [place] [address]- 0308 Apr, [facility] [place] [facility] [address] [id number] [place] [address]- 2269 Apr, [facility] [place] [facility] [address] [id number] [place] [address]- 3522 Mar, [facility] [place] [facility] [address] [id number] [place] [address]- 6031 Mar, [facility] [place] [facility] [address] [id number] [place] [address]- 9205 Mar, [facility] [place] [facility] [address] [id number] [place] [address]- 1335 Feb, [facility] [place] [facility] [address] [id number] [place] [address]- 8365 Feb, [facility] [place] [facility] [address] [id number] [place] [address]- 3960 Feb, [facility] [place] [facility] [address] [id number] [place] [address]- 2884 Apr, [facility] [place] [facility] [address] [facility] [id number] [place] [address]- 1648 Apr, [facility] [place] [facility] [address] [id number] [place] [address]- 2184 Mar, [facility] [place] [facility] [address] [id number] [place] [address]- 8660 Mar, [facility] [place] [facility] [address] [id number] [place] [address]- 8222 Mar, [facility] [place] [facility] [address] [id number] [place] [address]- 9831 Mar, [facility] [place] [facility] [address] [facility] [id number] [place] [address]- 7159 Mar, [facility] [place] [facility] [address] [id number] [place] [address]- 5445 13 Feb, 2010 [facility] [place] [facility] [address] [id number] [place] [address]- 5756 September, [facility] [place] [facility] [address] [id number] [place] [address]- 9665 Aug, [facility] [place] [facility] [address] [id number] [place] [address]- 0590 Apr, [facility] [place] [facility] [address] [id number] [place] [address]- 8984 15 Apr, 2009 [facility] [place] [facility] [address] [id number] [place] [address]- 8531 Mar, [facility] [place] [facility] [address] [facility] [id number] [place] [address]- 6594 Mar, [facility] [place] [facility] [address] [id number] [place] [address]- 8657 Mar, [facility] [place] [facility] [address] [id number] [place] [address]- 0048 Feb, [facility] [place] [facility] [address] [id number] [place] [address]- 8569 18 Jan, 2009 [facility] [place] [facility] [address] [id number] [place] [address]- 1196 Dec, [facility] [place] [facility] [address] [id number], [place] [address]- [address] 15 Nov, 2008 [facility] [place] [facility] [address] [id number] [place] [address]- 2644 Oct, [facility] [place] [facility] [address] [id number] [place] [address]- 2924 Apr, [facility] [place] [facility] [address] [id number] [place] [address]- 6474 Apr, [facility] [place] [facility] [address] [id number], [place] [address]- [address]676 Apr, [facility] [address] [facility] [id number] [place] [address]- [address] Feb, IMMUNIZATIONS No Known Immunizations SOCIAL HISTORY Never Assessed REASON FOR VISIT PLAN OF CARE VITAL SIGNS MEDICATIONS Unknown [...]
--- OUTSIDE RECORDS SUMMARY | 2017-12-04 17:55 | XMS REPORT ---
Author CEDRIC Peñaloza Organization [employer] Address Unknown Phone Unavailable Care Team Providers Care Sports Teacher Name Role Phone CEDRIC LAWLER CP Unavailable [...] Status Dosage Hydrocodone-Acetaminophen [facility] [address]-57 10-325 MG Orally every 6 hrs July 19, 2014 take 1 tablet Results No Known Results Summary Purpose [employer] Submission
--- OUTSIDE RECORDS SUMMARY | 2017-12-04 17:55 | XMS REPORT ---
Author CEDRIC Peñaloza Organization [employer] Address Unknown Phone Unavailable Care Team Providers Care Master [place] Name Role Phone CEDRIC LAWLER CP Unavailable [...] Start Date End Date Status Dosage Hydrocodone-Acetaminophen [facility] [address]-84 10-325 MG Orally every 6 hrs July 19, 2014 take 1 tablet Results No Known Results Summary Purpose [employer] Submission
--- OUTSIDE RECORDS SUMMARY | 2017-12-04 17:56 | XMS REPORT ---
Author Author ECDRIC LAWLER Organization [facility] Address [address] [place] [address] Care Team Providers Care Clinical Trials Specialist Name Role Phone CEDRIC LAWLER Unavailable PROBLEMS Type Condition ICD9-CM Code OIP68-DD Code Onset Dates Condition Status SNOMED Code Problem Nicotine dependence, uncomplicated, unspecified nicotine product type F17.200 Active 53525185 Problem Ab[address] CT lung screening R93.8 Active 322530548 Problem Mild persistent asthma without complication J45.30 Active 720150645 Problem Restless leg syndrome G25.81 Active 01728583 Problem Osteoarthritis of spine with radiculopathy, cervical region M47.22 Active 782046111 Problem RLS (restless legs syndrome) G25.81 Active 33179915 Problem Diabetes mellitus type 2, controlled E11.9 Active 049251726 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 [id number] Problem Hypertension, benign I10 Active 24477297 Problem Essential hypertension I10 Active 13975399 ALLERGIES No Information ENCOUNTERS Encounter Location Date Diagnosis [place] [id number] [place] [address] 59693- 6499 Oct, Skin tags, multiple acquired L91.8 [place] [address] [place] [id number] [place] [address] 86156- 1848 Oct, [place] [id number] [place] [address] 01886- 9063 Oct, Diabetes mellitus type 2, controlled E11.9 and Osteoarthritis of spine with radiculopathy, cervical region M47.22 [place] [id number] [place] [address] 38894- 6371 September, Osteoarthritis of spine with radiculopathy, cervical region M47.22 ; Coughing R05 ; Chronic pruritus L29.9 and Breast cancer screening Z12.31 [place] [id number] [place] [address]- 2[address] September, Diabetes mellitus type 2, controlled E11.9 [facility] [address] [facility] [id number] [place] [address] Jul, Chronic cough R05 [facility] [id number] [place] [address]- 3825 Jul, [facility] [address] [place] [address]- 0202 Jul, Diabetes mellitus type 2, controlled E11.9 [facility] [id number] [place] [address]- 1809 Jul, [facility] [address] [place] [address]- 8261 Jul, [facility] [address] [address] 0723 Jun, [facility] [address], [place] [address]- 0895 Jun, Diabetes mellitus type 2, controlled E11.9 [facility] [address], [place] [address]- 0138 Jun, [facility] [id number] [address]- 8201 May, [facility] [id number] 9622 May, Diabetes mellitus type 2, controlled E11.9 [facility] [address] [id number] [address]- 8706 Apr, [facility] [address] 8058 Apr, Pneumonia of right upper lobe due to infectious organism J18.1 [facility] [address] [id number] [address]- 5392 Mar, [place] [id number] [place] [address] 04055- 1256 Mar, [place] [address] 32597- 0207 Mar, [place] [id number] [place] [address] 35172- 2104 Mar, Coughing R05 and SOB (shortness of breath) R06.02 [place] [address] 51936- 9029 Mar, Diabetes mellitus type 2, controlled E11.9 ; Coughing R05 and SOB (shortness of breath) R06.02 [place] [address] 55047- 2137 Feb, [place] [address] 63540- 1174 Feb, [place] [address] 46005- 7450 Jan, Hypertension, benign I10 and RLS (restless legs syndrome) G25.81 [place] [id number] [place] [address] 55516- 2482 Jan, [place] [id number] [place] [address] 95471- 8066 Dec, Pain in unspecified joint M25.50 and Mild persistent asthma without complication J45.30 [place] [id number] [place] [address] 48816- 1425 Dec, [place] [address] 15685- [address] Dec, [address] lung screening R93.8 [place] [address] [id number] [place] [address] 62668- 1557 Dec, [place] [address] 22082- 9546 Nov, Screening for breast cancer Z12.31 [facility] [address], [place] [address]- 4964 Nov, [facility] [id number] [place] [address] 33283- 2843 Nov, Essential hypertension I10 [facility] [id number] [place] [address] 91401- 7538 Nov, Essential hypertension I10 [facility] [id number] [place] [address] 67977- 0912 Oct, Acute non-recurrent maxillary sinusitis J01.00 [facility] [id number] [place] [address] 20269- 0883 Oct, [facility] [id number] [place] [address] 82591- 9145 September, Acute non-recurrent maxillary sinusitis J01.00 [facility] [address] [place] [address] 21951 -5169 September, Low back pain M54.5 [facility] [id number] [place] [address] 54625- 6780 September, [facility] [id number] [place] [address] 85402- 9079 Aug, Acute non-recurrent maxillary sinusitis J01.00 [facility] [address] [place] [address] [id number] Aug, Dental examination Z01.20 [facility] [address], [place] [address]- 7291 Aug, [facility] [id number] [place] [address] 32940- 1407 Aug, [facility] [id number] [place] [address] 72242- 6570 Aug, [facility] [id number] [place] [address] 53134- 1830 Aug, Acute sinusitis J01.90 [facility] [address], [place] [address]- 4756 Jul, [facility] [id number] [place] [address] 89639- 5298 Jul, [facility] [id number] [place] [address] 17423- 6405 Jul, [facility] [id number] [place] [address] 98449- 7005 Jul, [facility] [address] [id number] [place] [address] 29732- 8139 Jul, Frequent urination R35.0 and Acute cystitis with hematuria N30.01 [facility] [id number] [place] [address] 14109- 8639 Jul, [facility] [id number] [place] [address] 81568- 2200 Jun, [facility] [id number] [place] [address] 99762- 4746 Jun, Acute sinusitis J01.90 [facility] [id number] [place] [address] 36933- 2277 Jun, Diabetes mellitus type 2, controlled E11.9 ; Cough R05 ; Acute non-recurrent maxillary sinusitis J01.00 and long-term (current) use of opiate analgesic Z79.891 [facility] [address] [address]- 0528 May, [facility] [id number] [place] [address] 41647- 6660 May, [facility] [id number] [place] [address] 26631- 1091 May, [facility] [id number] [place] [address] 41226- 0496 Apr, [facility] [address], [place] [address]- 8533 Apr, [facility] [id number] [place] [address] 17095- 0186 Apr, [facility] [address], [place] [address] -7418 Apr, Acute non-recurrent maxillary sinusitis J01.00 [facility] [id number] [place] [address] 70359- 8593 Apr, [facility] [id number] [place] [address] 69006- 2226 Feb, [facility] [id number] [place] [address] 48097- 7201 Feb, [facility] [id number] [place] [address] 15169- 8222 Feb, [facility] [id number] [place] [address] 36692- 0439 Feb, [facility] [id number] [place] [address] 29183- 9850 Feb, [facility] [id number] [place] [address] 05912- 1298 Feb, [facility] [address] [place] [address] 77485- 1763 Jan, RLS (restless legs syndrome) G25.81 ; Osteoarthritis of spine with radiculopathy, cervical region M47.22 ; Lumbar neuritis M54.16 and Left sciatic nerve pain M54.32 [facility] [id number] [place] [address] 00473- 6120 Jan, [facility] [address] [address]- 6456 Dec, [facility] [id number] [place] [address] 49122- 1993 Nov, [facility] [address], [place] [address]- 7429 Nov, [facility] [address], [place] [address]- 2575 Nov, [facility] [address], [place] [address]- 2797 Nov, Restless leg syndrome G25.81 and Controlled type 2 diabetes mellitus without complication, without long-term current use of insulin E11.9 [facility] [address], [place] [address]- 5163 Nov, [facility] [address] [id number] [place] [address] 34109- 8050 Oct, [facility] [address] [id number] [place] [address] 21317- 2149 Oct, [facility] [address] [place] [address] 91272- 6038 Oct, [facility] [address] [place] [address] 61363- 1998 Oct, 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 lung screening R93.8 [facility] [address], [place] [address]- 4194 Oct, [facility] [address], [place] [address]- 1012 September, [facility] [address], [place] [address]- 6615 September, Physical exam, annual Z00.00 ; Nicotine dependence, uncomplicated, unspecified nicotine product type F17.200 ; Screening breast examination Z12.39 ; Restless leg syndrome G25.81 and Mild persistent asthma without complication J45.30 [facility] [address], [place] [address]- 6383 September, [facility] [id number] [place] [address] 33612- 8247 September, [facility] [id number] [place] [address] 32057- 3483 Aug, [facility] [id number] [place] [address] 896041- 7169 Jul, Dental examination Z01.20 and Dental caries K02.9 [facility] [address] [id number] [place] [address] 25676- 7283 Jul, [facility] [id number] [place] [address] 24333- 1274 Jul, Diabetes mellitus type 2, controlled E11.9 and Pain in unspecified joint M25.50 [facility] [id number] [place] [address] 02192- 2967 Jul, [facility] [address] [id number] [place] [address] 72386- 1814 Jun, Dental examination Z01.20 [facility] [address] [id number] [place] [address] 63936- 3605 May, [facility] [id number] [place] [address] 66587- 8327 May, [facility] [id number] [place] [address] 48428- 6591 Apr, [facility] [id number] [place] [address] 22636- 5921 Mar, [facility] [id number] [place] [address] 76336- 4928 Mar, Acute sinusitis J01.90 [facility] [id number] [place] [address] 19444- 5528 Feb, [facility] [id number] [place] [address] 15841- 3311 Jan, Flu vaccine need V04.81 [facility] [id number] [place] [address] 66769- 3891 Jan, [facility] [address], [place] [address]- 5052 Jan, Pain in joint, site unspecified 719.40 [facility] [address], [place] [address]- 4547 Dec, Pain in joint, site unspecified 719.40 [facility] [id number] [place] [address] 70092- 6221 Dec, [facility] [address] [place] [address] 69965- 0225 Dec, [facility] [id number] [place] [address] 84056- 2772 Dec, Sciatica 724.3 ; Restless legs syndrome [RLS] 333.94 and Encounter for smoking cessation counseling V65.42 [facility] [address] [place] [address] 50400- 3797 Dec, Nicotine dependence 305.1 [facility] [address] [place] [address] 06274- 0053 Nov, [facility] [address] [place] [address] 48693- 0123 Oct, [facility] [address], [place] [address]- 0711 Oct, [facility] [address], [place] [address]- 8799 September, [facility] [address], [place] [address]- 2002 Aug, [facility] [address] [place] [address] 74302- 1706 Aug, [facility] [address], [place] [address]- 9992 Jul, [facility] [id number] [place] [address], [place] [address]- 2142 Jul, [facility] [place] [facility] [address] [id number] [place] [address]- 3442 Jul, [facility] [place] [facility] [address] [id number] [place] [address]- 1293 Jun, [facility] [place] [facility] [address] [id number] [place] [address]- 7125 Jun, [facility] [place] [facility] [address] [id number] [place] [address]- 6810 Jun, [facility] [place] [facility] [address] [id number] [place] [address]- 2759 Jun, [facility] [place] [facility] [address] [id number] [place] [address]- 9491 May, [facility] [place] [facility] [address] [id number] [place] [address]- 1757 May, [facility] [place] [facility] [address] [id number] [place] [address]- 3962 May, [facility] [place] [facility] [address] [id number] [place] [address]- 6292 May, [facility] [place] [facility] [address] [id number] [place] [address]- 2099 May, [facility] [place] [facility] [address] [id number] [place] [address]- 7455 May, [facility] [place] [facility] [address] [id number] [place] [address]- 8927 May, [facility] [place] [facility] [address] [id number] [place] [address]- 8449 Apr, [facility] [place] [facility] [address] [id number] [place] [address]- 5505 Apr, [facility] [place] [facility] [address] [id number] [place] [address]- 3932 Apr, [facility] [place] [facility] [address] [id number] [place] [address]- 9249 Apr, [facility] [place] [facility] [address] [id number] [place] [address]- 6697 Apr, [facility] [place] [facility] [address] [id number] [place] 2750 Apr, [facility] [place] [facility] [address] [id number] [place] 6574 Apr, [facility] [place] [facility] [address] [id number] [place]- 6848 Apr, [facility] [place] [facility] [address] [id number] [place] [address]- 6573 Apr, [facility] [place] [facility] [address] [id number] [place] [address]- 1181 Apr, [facility] [place] [facility] [address] [id number] [place] [address]- 4642 Mar, [facility] [place] [facility] [address] [id number] [place] [address]- 9408 Mar, [facility] [place] [facility] [address] [id number] [place] [address]- 0367 Mar, [facility] [place] [facility] [address] [id number] [place] [address]- 6569 Mar, [facility] [place] [facility] [address] [id number] [address]- 4688 Mar, [facility] [place] [facility] [address] [id number] [place] [address]- 5435 Mar, [facility] [place] [facility] [address] [id number] [place] 6904 Feb, [facility] [place] [facility] [address] [id number] 7649 Feb, [facility] [place] [facility] [address] [id number], [place] [address]- 6868 Feb, [facility] [place] [facility] [address] [id number] [place] [address]- 5175 Feb, [facility] [place] [facility] [address] [id number] [place] [address]- 6417 Feb, [facility] [place] [facility] [address] [id number] [place] [address]- 3133 Feb, [facility] [place] [facility] [address] [id number] [place] [address]- 6565 Jan, [facility] [place] [facility] [address] [id number] [place] [address]- 9194 Jan, [facility] [place] [facility] [address] [id number] [place] [address]- 1700 Jan, [facility] [place] [facility] [address] [id number] [place] [address]- 7856 Jan, [facility] [place] [facility] [address] [id number] [place] [address]- 3194 Dec, [facility] [place] [facility] [address] [id number] [place] [address]- 5668 Dec, [facility] [place] [facility] [address] [id number] [place] [address]- 6303 Dec, [facility] [place] [facility] [address] [id number] [place] [address]- 5142 Dec, [facility] [place] [facility] [address] [id number] [place] [address]- 0737 Dec, [facility] [place] [facility] [address] [id number] [place] [address]- 7016 Nov, [facility] [place] [facility] [address] [id number] [place] [address]- 0169 Nov, [facility] [place] [facility] [address] [id number] [place] [address]- 8845 15 Nov, 2013 [facility] [place] [facility] [address] [id number] [place] [address]- 0797 15 Nov, 2013 [facility] [place] [facility] [address] [id number] [place] [address]- 8205 15 Nov, 2013 [facility] [place] [facility] [address] [id number] [place] [address]- 7846 15 Nov, 2013 [facility] [place] [facility] [address] [id number] [place] [address]- 3423 16 Oct, 2013 [facility] [place] [facility] [address] [id number] [place] [address]- 4769 16 Oct, 2013 [facility] [place] [facility] [address] [id number] [place] [address]- 4254 September, [facility] [place] [facility] [address] [id number] [place] [address]- 1866 16 Sep, 2013 [facility] [place] [facility] [address] [id number] [place] [address]- 6367 14 Sep, 2013 [facility] [place] [facility] [address] [id number] [place] [address]- 8383 14 Sep, 2013 [facility] [place] [facility] [address] [id number] [place] [address]- 1028 14 Aug, 2013 [facility] [place] [facility] [address] [id number] [place] [address]- 7742 14 Aug, 2013 [facility] [place] [facility] [address] [id number] [place] [address]- 0453 17 Jul, 2013 [facility] [place] [facility] [address] [id number] [place] [address]- 5234 17 Jul, 2013 [facility] [place] [facility] [address] [id number] [place] [address] 14 Jul, 2013 [facility] [place] [facility] [address] [id number] [place] [address] 14 Jul, 2013 [facility] [place] [facility] [address] [id number] [place] [address] Jun, [facility] [place] [facility] [address] [id number] [place] [address] Jun, [facility] [place] [facility] [address] [id number] [place] [address] Jun, [facility] [place] [facility] [address] [id number] [place] [address] Jun, [facility] [place] [facility] [address] [id number] [place] [address] May, [facility] [place] [facility] [address] [id number] [place] [address] May, [facility] [place] [facility] [address] [id number] [place] [address] May, [facility] [place] [facility] [address] [id number] [place] [address] May, [facility] [place] [facility] [address] [id number] [place] [address] Apr, [facility] [place] [facility] [address] [id number] [place] [address] Apr, [facility] [place] [facility] [address] [id number] [place] [address] Apr, [facility] [place] [facility] [address] [id number] [place] [address] Mar, [facility] [place] [facility] [address] [id number], [place] [address] Mar, [facility] [place] [facility] [address] [id number] [place] [address] Mar, [facility] [place] [facility] [address] [id number] [place] [address] Mar, [facility] [place] [facility] [address] [id number] [place] [address] Feb, [facility] [place] [facility] [address] [id number] [place] [address] Feb, 2012 [facility] [address] [id number] [place] [address] Feb, 2012 [facility] [place] [facility] [address] [id number] [place] [address] Feb, 2012 [facility] [address] [id number] [place] [address] Feb, 2012 [facility] [place] [facility] [address] [id number] [place] [address] Feb, 2012 [facility] [address] [id number] [place] [address] Feb, [facility] [place] [facility] [address] [id number] [place] [address] Feb, [facility] [address] [id number] [place] [address] Jan, [facility] [address] [id number] [place] [address] Jan, [facility] [place] [facility] [address] [id number] [place] [address] Jan, [facility] [address] [id number] [place] [address] Dec, [facility] [place] [facility] [address] [id number] [place] [address] Dec, [facility] [place] [facility] [address] [id number] [place] [address] Nov, [facility] [place] [facility] [address] [id number] [place] [address] Nov, [facility] [place] [facility] [address] [id number] [place] [address] Nov, [facility] [place] [facility] [address] [id number] [place] [address] Nov, [facility] [place] [facility] [address] [id number] [place] [address] Oct, [facility] [address] [id number] [place] [address] Oct, [facility] [address] [id number] [place] [address] Oct, [facility] [address] [id number] [place] [address] September, [facility] [address] [id number] [place] [address] September, [facility] [address] [id number] [place] [address] September, [facility] [address] [id number] [place] [address] September, [facility] [address] [id number] [place] [address] 134[address] Aug, [facility] [address] [id number] [place] [address] Aug, [facility] [address] [id number] [place] [address] Jul, [facility] [place] [facility] [address] [id number] [place] [address] Jul, [facility] [place] [facility] [address] [id number], [place] [address] Jul, [facility] [place] [facility] [address] [id number] [place] [address]453 Jul, [facility] [place] [facility] [address] [id number] [place] [address] Jul, [facility] [place] [facility] [address] [id number], [place] [address] Jun, [facility] [place] [facility] [address] [id number], [place] [address] Jun, [facility] [address] [id number] [place] [address] Jun, [facility] [address] [id number] [place] [address] May, [facility] [address] [id number] [place] [address] 9207 May, [facility] [address] [id number] [place] [address] 75[address] May, [facility] [address] [id number] [place] [address] 1018 Apr, [facility] [address] [id number] [place] [address] Apr, [facility] [address] [facility] [id number] [place] [address] Apr, [facility] [address] [id number] [place] [address] Apr, [facility] [address] [id number] [place] [address] 9[address] Apr, [facility] [address] [facility] [id number] [place] [address] Apr, [facility] [address] [id number] [place] [address] 1249 Apr, [facility] [place] [facility] [address] [id number] [place] [address] Apr, [facility] [place] [facility] [address] [id number] [place] [address] 36[address] Mar, [facility] [place] [facility] [address] [id number] [place] [address] Mar, [facility] [address] [facility] [id number] [place] [address] Mar, [facility] [place] [facility] [address] [id number] [place] [address] 113[address] Mar, [facility] [place] [facility] [address] [id number] [place] [address]- 0906 Mar, [facility] [place] [facility] [address] [id number] [place] [address] 9876 Mar, [facility] [place] [facility] [address] [id number] [place] [address]- 4866 Mar, [facility] [place] [facility] [address] [id number] [place] [address]- 1193 Mar, [facility] [place] [facility] [address] [id number] [place] [address]- 6269 Mar, [facility] [place] [facility] [address] [id number] [place] [address]- 5484 Mar, [facility] [place] [facility] [address] [id number] [place] [address] Feb, [facility] [place] [facility] [address] [id number] [place] [address] 8481 Feb, [facility] [place] [facility] [address] [id number] [place] [address]- 2[address] Feb, [facility] [place] [facility] [address] [id number] [place] [address]- 7[address] Jan, [facility] [place] [facility] [address] [id number] [place] [address]- 4936 07 Jan, 2012 [facility] [place] [facility] [address] [id number] [place] [address]- [address]396 07 Jan, 2012 [facility] [place] [facility] [address] [id number] [place] [address]- 2686 Dec, [facility] [place] [facility] [address] [id number] [place] [address]- 5785 15 Dec, 2011 [facility] [place] [facility] [address] [id number] [place] [address]- 5970 Dec, [facility] [place] [facility] [address] [id number] [place] [address] 7048 Dec, [facility] [place] [facility] [address] [id number] [place] [address] 0366 Dec, [facility] [place] [facility] [address] [id number] [place] [address] 1276 Nov, [facility] [place] [facility] [address] [id number] [place] [address] 2246 Nov, [facility] [place] [facility] [address] [id number] [place] [address] Oct, [facility] [place] [facility] [address] [id number] [place] [address]- 0566 September, [facility] [place] [facility] [address] [id number] [place] [address]- 8666 September, [facility] [place] [facility] [address] [id number] [place] [address]- 6297 September, [facility] [place] [facility] [address] [id number] [place] [address]- 3076 September, [facility] [place] [facility] [address] [id number] [place] [address]- 6736 September, [facility] [place] [facility] [address] [id number] [place] [address]- 4966 Aug, [facility] [place] [facility] [address] [id number] [place] [address] 2546 16 Jul, 2011 [facility] [place] [facility] [address] [id number] [place] [address]- 4295 15 Jul, 2011 [facility] [place] [facility] [address] [id number] [place] [address]- 9146 14 Jul, 2011 [facility] [place] [facility] [address] [id number] [place] [address]- 3147 14 Jul, 2011 [facility] [place] [facility] [address] [id number] [place] [address]- 6751 09 Jul, 2011 [facility] [place] [facility] [address] [id number] [place] [address]- 3512 Jul, [facility] [place] [facility] [address] [id number] [place] [address]- 5536 Jul, [facility] [place] [facility] [address] [id number] [place] [address]- 9690 Jul, [facility] [place] [facility] [address] [id number] [place] [address]- 0500 Jun, [facility] [place] [facility] [address] [id number] [place] [address]- 7934 Jun, [facility] [place] [facility] [address] [facility] [id number] [place] [address]- 4428 Jun, [facility] [place] [facility] [address] [facility] [id number] [place] [address]- 5770 May, [facility] [place] [facility] [address] [id number] [place] [address]- 9723 Apr, [facility] [place] [facility] [address] [facility] [id number] [place] [address]- 3329 Apr, [facility] [place] [facility] [address] [facility] [id number] [place] [address]- 6580 Mar, [facility] [place] [facility] [address] [id number] [place] [address]- 5371 Mar, [facility] [place] [facility] [address] [id number] [place] [address]- 3372 Mar, [facility] [place] [facility] [address] [id number] [place] [address]- 0746 Feb, [facility] [place] [facility] [address] [id number] [place] [address]- 1286 Feb, [facility] [place] [facility] [address] [id number] [place] [address] Feb, [facility] [place] [facility] [address] [id number] [place] [address]- 5132 Apr, [facility] [place] [facility] [address] [id number] [place] [address]- 1151 Apr, [facility] [place] [facility] [address] [id number] [place] [address]- 9696 Mar, [facility] [place] [facility] [address] [id number] [place] [address]- 3453 Mar, [facility] [place] [facility] [address] [id number] [place] [address]- 3315 Mar, [facility] [place] [facility] [address] [id number] [place] [address]- 6920 Mar, [facility] [place] [facility] [address] [id number] [place] [address]- 6344 Mar, [facility] [place] [facility] [address] [id number], [place] [address]- 9549 Feb, [facility] [place] [facility] [address] [id number] [place] [address]- 8997 September, [facility] [place] [facility] [address] [facility] [id number], [place] [address]- 3729 Aug, [facility] [place] [facility] [address] [id number], [place] [address]- 5041 Apr, [facility] [place] [facility] [address] [id number], [place] [address]- 9213 15 Apr, 2009 [facility] [place] [facility] [address] [id number], [place] [address]- 2085 18 Mar, 2009 [facility] [place] [facility] [address] [id number], [place] [address]- 0545 Mar, [facility] [place] [facility] [address] [id number], [place] [address]- 6670 18 Mar, 2009 [facility] [place] [facility] [address] [id number], [place] [address]- 4096 Feb, [facility] [id number] [address] Jan, [facility] [id number], [place] [address] 1056 Dec, [facility] [id number], [place] [address] 0676 Nov, [facility] [id number] [place] [address]- 5254 Oct, [facility] [id number] [place] [address]- 3136 Apr, [facility] [id number] [place] [address]- 2546 Apr, [facility] [id number] [place] [address]- 7646 Apr, [facility] [id number], [place] [address] 5846 Feb, IMMUNIZATIONS No Known Immunizations SOCIAL HISTORY Never Assessed REASON FOR VISIT Steroid order PLAN OF CARE VITAL SIGNS MEDICATIONS Medication Instructions Dosage Frequency Start Date End Date Duration Status PredniSONE 20 mg Orally Once a day 2 tablets 24h Apr, May, 05 days Active RESULTS No Results PROCEDURES [...]
--- OUTSIDE RECORDS SUMMARY | 2017-12-04 17:58 | XMS REPORT ---
Author Author CEDRIC LAWLER Organization [facility] Address [address] [place] [address] Care Team Providers Care Sheet Writer Name Role Phone CEDRIC LAWLER Unavailable PROBLEMS Type Condition ICD9-CM Code UZE19-JZ Code Onset Dates Condition Status SNOMED Code Problem Nicotine dependence, uncomplicated, unspecified nicotine product type F17.200 Active 25717929 Problem Abnormal CT lung screening R93.8 Active 214226806 Problem Mild persistent asthma without complication J45.30 Active 125937595 Problem Restless leg syndrome G25.81 Active 19551610 Problem Osteoarthritis of spine with radiculopathy, cervical region M47.22 Active 626729490 Problem RLS (restless legs syndrome) G25.81 Active 91199720 Problem Diabetes mellitus type 2, controlled E11.9 Active 405126590 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 103272244411380 Problem Hypertension, benign I10 Active 41788674 Problem Essential hypertension I10 Active 90759063 ALLERGIES No Information ENCOUNTERS Encounter Location Date Diagnosis [facility] [address] [address] September, Osteoarthritis of spine with radiculopathy, cervical region M47.22 ; Coughing R05 ; Chronic pruritus L29.9 and Breast cancer screening Z12.31 [facility] [id number] [place] [address] 05133- 0977 September, Diabetes mellitus type 2, controlled E11.9 [facility] [id number] [place] [address] 92338 -5604 Jul, Chronic cough R05 [facility] [id number] [place] [address] 47991- 7546 Jul, [facility] [address] 33482- 6582 Jul, Diabetes mellitus type 2, controlled E11.9 [facility] [address] [address] 1494 Jul, [facility] [id number] [place] [address] 104624- 0733 Jul, [facility] [id number] [place] [address] 94966- 3074 Jun, [facility] [id number] [place] [address] 373795- 2454 Jun, Diabetes mellitus type 2, controlled E11.9 [facility] [id number] [place] [address] 889601- 9650 Jun, [facility] [id number] [place] [address] 06986- 7734 May, [facility] [id number] [place] [address] 62771- 1817 May, Diabetes mellitus type 2, controlled E11.9 [facility] [address] [address] 3[address] Apr, [facility] [id number] [place] [address] 74582- 2382 Apr, Pneumonia of right upper lobe due to infectious organism J18.1 [facility] [address] [address] 3151 Mar, [facility] [address] [address]- 1159 Mar, [facility] [id number] [place] [address] 06146- 5292 08 Mar, 2017 [facility] [id number] [place] [address] 46815- 9791 03 Mar, 2017 Coughing R05 and SOB (shortness of breath) R06.02 [facility] [id number] [place] [address] 99011- 8746 Mar, Diabetes mellitus type 2, controlled E11.9 ; Coughing R05 and SOB (shortness of breath) R06.02 [facility] [id number] [place] [address] 78571- 9628 Feb, [facility] [id number] [place] [address] 13039- 6685 Feb, [facility] [address] 27077- 7999 Jan, Hypertension, benign I10 and RLS (restless legs syndrome) G25.81 [facility] [address] 76889- 5981 Jan, [facility] [id number] [place] [address] 04006- 3235 Dec, Pain in unspecified joint M25.50 and Mild persistent asthma without complication J45.30 [facility] [id number] [place] [address] 14125- 5149 Dec, [facility] [id number] [place] [address] 45254- [address] Dec, [address] lung screening R93.8 [facility] [id number] [place] [address] 84222- 7389 Dec, [facility] [id number] [place] [address] 14328- 3987 Nov, Screening for breast cancer Z12.31 [facility] [id number] [place] [address] 40845- 7142 Nov, [facility] [address] 01589- 5340 Nov, Essential hypertension I10 [facility] [id number] [place] [address] 68804- 5998 Nov, Essential hypertension I10 [facility] [address] 53035- 3067 Oct, Acute non-recurrent maxillary sinusitis J01.00 [facility] [address] [address]- 4693 Oct, [facility] [address] [address]- 1150 September, Acute non-recurrent maxillary sinusitis J01.00 [facility] [address] [address] September, Low back pain M54.5 [facility] [id number] [place] [address] 80605- 1942 September, [facility] [id number] [place] [address] 53652- 7031 Aug, Acute non-recurrent maxillary sinusitis J01.00 [facility] [address] [address] Aug, Dental examination Z01.20 [facility] [address] [address]- 9639 Aug, [facility] [id number] [place] [address] 95535- 0100 Aug, [facility] [address] [address]- 5381 Aug, [facility] [id number] [place] [address] 32330- 5056 Aug, Acute sinusitis J01.90 [facility] [address] [address]- 5907 Jul, [facility] [id number] [address]- 8738 Jul, [facility] [address] [address]- 8135 Jul, [facility] [id number] [place] [address] 74077- 6580 Jul, [facility] [id number] [place] [address] 18191- 5760 Jul, Frequent urination R35.0 and Acute cystitis with hematuria N30.01 [facility] [id number] [place] [address] 96383- 0424 Jul, [facility] [address] 09997- 0427 Jun, [facility] [id number] [place] [address] 49057- 1978 Jun, Acute sinusitis J01.90 [facility] [id number] [place] [address] 29296- 6350 Jun, Diabetes mellitus type 2, controlled E11.9 ; Cough R05 ; Acute non-recurrent maxillary sinusitis J01.00 and retirement (current) use of opiate analgesic Z79.891 [facility] [id number] [place] [address] 66796- 8945 May, [facility] [id number] [place] [address] 01377- 3183 May, [facility] [id number] [place] [address] 34793- 8081 May, [facility] [id number] [place] [address] 03466- 1193 Apr, [facility] [id number] [place] [address] 50706- 0547 Apr, [facility] [id number] [place] [address] 33685- 5108 Apr, [facility] [id number] [place] [address] 55347 -3400 Apr, Acute non-recurrent maxillary sinusitis J01.00 [facility] [id number] [place] [address] 50448- 9457 Apr, [facility] [id number] [place] [address] 48140- 1761 Feb, [facility] [id number] [place] [address] 81299- 0402 Feb, [facility] [id number] [place] [address] 21709- 6988 Feb, [facility] [id number] [place] [address] 68527- 3293 Feb, [facility] [id number] [place] [address] 53729- 4318 Feb, [facility] [id number] [place] [address] 29681- 0764 Feb, [facility] [id number] [place] [address] 71353- 2157 Jan, RLS (restless legs syndrome) G25.81 ; Osteoarthritis of spine with radiculopathy, cervical region M47.22 ; Lumbar neuritis M54.16 and Left sciatic nerve pain M54.32 [facility] [id number] [place] [address] 60636- 6297 Jan, [facility] [id number] [place] [address] 26353- 7254 Dec, [facility] [id number] [place] [address] 46899- 2436 Nov, [facility] [id number] [place] [address] 86583- 9814 Nov, [facility] [id number] [place] [address] 34852- 5727 Nov, [facility] [id number] [place] [address] 83549- 4525 Nov, Restless leg syndrome G25.81 and Controlled type 2 diabetes mellitus without complication, without long-term current use of insulin E11.9 [facility] [address] [address]- 1985 Nov, [facility] [id number] [place] [address] 71192- 7147 Oct, [facility] [id number] [place] [address] 82126- 2938 Oct, [facility] [id number] [place] [address] 31452- 2713 Oct, [facility] [id number] [place] [address] 44562- 6515 Oct, 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 lung screening R93.8 [facility] [id number] [place] [address] 52647- 3751 Oct, [facility] [id number] [place] [address] 87978- 4544 September, [facility] [id number] [place] [address] 93246- 8162 September, Physical exam, annual Z00.00 ; Nicotine dependence, uncomplicated, unspecified nicotine product type F17.200 ; Screening breast examination Z12.39 ; Restless leg syndrome G25.81 and Mild persistent asthma without complication J45.30 [facility] [address] [address]- 6207 September, [facility] [id number] [place] [address] 25309- 2850 September, [facility] [address] [address]- 2499 Aug, [facility] [id number] [place] [address] 19948- 0910 Jul, Dental examination Z01.20 and Dental caries K02.9 [facility] [address] [address]- 0107 Jul, [facility] [id number] [address]- 0466 Jul, Diabetes mellitus type 2, controlled E11.9 and Pain in unspecified joint M25.50 [facility] [id number] [place] [address] 75115- 7887 Jul, [facility] [id number] [place] [address] 68376- 8891 Jun, Dental examination Z01.20 [facility] [id number] [place] [address] 35408- 5218 May, [facility] [id number] [place] [address] 56724- 6130 May, [facility] [id number] [place] [address] 27847- 5270 Apr, [facility] [id number] [place] [address] 31715- 3533 Mar, [facility] [id number] [place] [address] 45853- 8352 Mar, Acute sinusitis J01.90 [facility] [id number] [place] [address] 17100- 5184 Feb, [facility] [id number] [place] [address] 27960- 8655 Jan, Flu vaccine need V04.81 [facility] [id number] [place] [address] 74882- 4321 Jan, [facility] [id number] [place] [address] 77091- 5057 Jan, Pain in joint, site unspecified 719.40 [facility] [id number] [place] [address] 27643- 9278 Dec, Pain in joint, site unspecified 719.40 [facility] [id number] [place] [address] 87785- 9077 Dec, [facility] [address] [address]- 2743 Dec, [facility] [id number] [place] [address] 22335- 6597 Dec, Sciatica 724.3 ; Restless legs syndrome [RLS] 333.94 and Encounter for smoking cessation counseling V65.42 [facility] [id number] [place] [address] 41142- 1076 Dec, Nicotine dependence 305.1 [facility] [id number] [place] [address] 103366- 1577 Nov, [facility] [id number] [place] [address] 53333- 5770 Oct, [facility] [id number] [place] [address] 36762- 2021 Oct, [facility] [id number] [place] [address] 07610- 4689 September, [facility] [address] [address]- 7289 Aug, [facility] [id number] [place] [address] 72237- 3356 Aug, [facility] [address] [address]- 6966 Jul, [facility] [address] [address]- 4871 Jul, [facility] [address] [address]- 7129 Jul, [facility] [address] [address]- 7896 Jun, [facility] [address] [address]- 2666 Jun, [facility] [id number] [place] [address] [place] [address]- 0112 Jun, [facility] [address] [id number] [place] [address]- 1228 Jun, [facility] [place] [facility] [address] [id number] [place] [address]- 7594 May, [facility] [place] [facility] [address] [id number] [place] [address]- 2291 May, [facility] [place] [facility] [address] [id number] [place] [address]- 6609 May, [facility] [place] [facility] [address] [id number] [place] [address]- 3709 May, [facility] [place] [facility] [address] [id number] [place] [address]- 1088 May, [facility] [address] [id number] [place] [address]- 3633 May, [facility] [place] [facility] [address] [id number] [place] [address]- 1560 May, [facility] [place] [facility] [address] [id number] [place] [address]- 1623 Apr, [facility] [place] [facility] [address] [id number] [place] [address]- 8818 Apr, [facility] [place] [facility] [address] [id number] [place] [address]- 2279 Apr, [facility] [place] [facility] [address] [id number] [place] [address]- 4280 Apr, [facility] [place] [facility] [address] [id number] [place] [address]- 0952 Apr, [facility] [place] [facility] [address] [id number] [place] [address]- 5270 Apr, [facility] [place] [facility] [address] [id number] [place] [address]- 0569 Apr, [facility] [place] [facility] [address] [id number] [place] [address]- 6355 Apr, [facility] [place] [facility] [address] [id number] [place] [address]- 3432 Apr, [facility] [place] [facility] [address] [id number] [place] [address]- 8265 Apr, [facility] [place] [facility] [address] [id number] [place] [address]- 9747 Mar, [facility] [place] [facility] [address] [id number] [place] [address]- 6326 Mar, [facility] [place] [facility] [address] [id number] [place] [address]- 7640 Mar, [facility] [place] [facility] [address] [id number] [place] [address]- 8577 Mar, [facility] [place] [facility] [address] [id number] [place] [address]- 3056 Mar, [facility] [place] [facility] [address] [id number] [place] [address]- 4010 Mar, [facility] [place] [facility] [address] [id number] [place] [address]- 1006 Feb, [facility] [place] [facility] [address] [id number] [place] [address]- 5171 15 Feb, 2014 [facility] [place] [facility] [address] [id number] [place] [address]- 6874 Feb, [facility] [place] [facility] [address] [id number] [place] [address]- 7784 Feb, [facility] [place] [facility] [address] [id number] [place] [address]- 0127 Feb, [facility] [place] [facility] [address] [id number] [place] [address]- 6588 Feb, [facility] [place] [facility] [address] [id number] [place] [address]- 2240 Jan, [facility] [place] [facility] [address] [id number] [place] [address]- 5122 Jan, [facility] [place] [facility] [address] [id number] [place] [address]- 3948 Jan, [facility] [place] [facility] [address] [id number] [place] [address]- 9525 Jan, [facility] [place] [facility] [address] [id number] [place] [address]- 1389 Dec, [facility] [place] [facility] [address] [id number] [place] [address]- 2198 Dec, [facility] [place] [facility] [address] [id number] [place] [address]- 8661 Dec, [facility] [place] [facility] [address] [id number] [place] [address]- 1527 Dec, [facility] [place] [facility] [address] [id number] [place] [address]- 5703 Dec, [facility] [place] [facility] [address] [id number] [place] [address]- 1561 Nov, [facility] [place] [facility] [address] [id number] [place] [address]- 8718 Nov, [facility] [place] [facility] [address] [id number] [place] [address]- 7392 Nov, [facility] [place] [facility] [address] [id number] [place] [address]- 0963 Nov, [facility] [place] [facility] [address] [id number] [place] [address]- 5179 Nov, [facility] [place] [facility] [address] [id number] [place] [address]- 7446 Nov, [facility] [place] [facility] [address] [id number] [place] [address]- 8440 16 Oct, 2013 [facility] [place] [facility] [address] [id number] [place] [address]- 0337 16 Oct, 2013 [facility] [address] [id number] [place] [address]- 1405 September, [facility] [place] [facility] [address] [id number] [place] [address]- 6436 September, [facility] [address] [id number] [place] [address]- 4147 September, [facility] [place] [facility] [address] [id number] [place] [address]- 1117 September, [facility] [address] [id number] [place] [address]- 4338 Aug, [facility] [place] [facility] [address] [id number] [place] [address]- 7226 Aug, [facility] [place] [facility] [address] [id number] [place] [address]- 5946 Jul, [facility] [place] [facility] [address] [id number] [place] [address]- 6845 17 Jul, 2013 [facility] [place] [facility] [address] [id number] [place] [address]- 1093 Jul, [facility] [address] [id number] [place] [address]- 4032 Jul, [facility] [place] [facility] [address] [id number] [place] [address]- 7852 Jun, [facility] [place] [facility] [address] [id number] [place] [address]- 3568 Jun, [facility] [place] [facility] [address] [id number] [place] [address] Jun, [facility] [place] [facility] [address] [id number] [place] [address] Jun, [facility] [place] [facility] [address] [id number] [place] [address] May, [facility] [place] [facility] [address] [id number] [place] [address] May, [facility] [place] [facility] [address] [id number] [place] [address] May, [facility] [place] [facility] [address] [id number] [place] [address] May, [facility] [place] [facility] [address] [id number] [place] [address] Apr, [facility] [place] [facility] [address] [id number] [place] [address] Apr, [facility] [place] [facility] [address] [id number] [place] [address] Apr, [facility] [place] [facility] [address] [id number] [place] [address] Mar, [facility] [place] [facility] [address] [id number] [address] Mar, [facility] [place] [facility] [address] [id number] [place] [address] Mar, [facility] [place] [facility] [address] [id number] [place] [address] Mar, [facility] [place] [facility] [address] [id number] [place] [address] Feb, [facility] [place] [facility] [address] [id number] [place] [address] Feb, [facility] [place] [facility] [address] [id number] [place] [address] Feb, [facility] [place] [facility] [address] [id number] [place] [address] Feb, [facility] [place] [facility] [address] [id number] [place] [address]- [address] 17 Feb, 2013 [facility] [place] [facility] [address] [id number] [place] [address] 17 Feb, 2013 [facility] [address] [id number] [place] [address] Feb, [facility] [place] [facility] [address] [id number] [place] [address]- 39[address] Feb, [facility] [place] [facility] [address] [id number] [place] [address]- [address] Jan, [facility] [place] [facility] [address] [id number] [place] [address]- [address] Jan, [facility] [place] [facility] [address] [id number] [place] [address]- 8660 Jan, [facility] [place] [facility] [address] [id number] [place] [address] Dec, [facility] [place] [facility] [address] [id number] [place] [address] Dec, [facility] [place] [facility] [address] [id number] [place] [address] Nov, [facility] [place] [facility] [address] [id number] [place] [address]- [address] Nov, [facility] [place] [facility] [address] [id number] [place] [address]- [address] Nov, [facility] [place] [facility] [address] [id number] [place] [address]- [address] Nov, [facility] [place] [facility] [address] [id number] [place] [address]- [address] Oct, [facility] [place] [facility] [address] [id number] [place] [address] Oct, [facility] [place] [facility] [address] [id number] [place] [address] Oct, [facility] [place] [facility] [address] [id number] [place] [address] September, [facility] [place] [facility] [address] [id number] [place] [address] September, [facility] [address] [id number] [place] [address] September, [facility] [address] [id number] [place] [address]- [address] September, [facility] [address] [id number] [place] [address] Aug, [facility] [address] [id number] [place] [address] Aug, [facility] [address] [id number] [place] [address]- [address] Jul, [facility] [address] [id number] [place] [address] Jul, [facility] [address] [id number] [place] [address] Jul, [facility] [address] [id number] [place] [address] Jul, [facility] [address] [id number] [place] [address] Jul, [facility] [address] [id number] [place] [address] Jun, [facility] [address] [id number] [place] [address] Jun, [facility] [place] [facility] [address] [id number] [place] [address] Jun, [facility] [place] [facility] [address] [id number] [place] [address] May, [facility] [place] [facility] [address] [id number] [place] [address] May, [facility] [address] [id number] [address] May, [facility] [place] [facility] [address] [id number] [place] [address] Apr, [facility] [place] [facility] [address] [id number] [place] [address] Apr, [facility] [place] [facility] [address] [id number] [place] [address]96 Apr, [facility] [place] [facility] [address] [id number] [place] [address] Apr, [facility] [place] [facility] [address] [id number] [place] [address] Apr, [facility] [place] [facility] [address] [id number] [place] [address] 1783 Apr, [facility] [place] [facility] [address] [id number] [place] [address] Apr, [facility] [place] [facility] [address] [id number] [place] [address] Apr, [facility] [place] [facility] [address] [id number] [place] [address] Mar, [facility] [place] [facility] [address] [id number] [place] [address] 2554 Mar, [facility] [place] [facility] [address] [id number] [place] [address] 1469 Mar, [facility] [place] [facility] [address] [id number] [place] [address]- 2426 Mar, [facility] [place] [facility] [address] [id number] [place] [address] 8510 Mar, [facility] [place] [facility] [address] [id number] [place] [address] Mar, [facility] [place] [facility] [address] [id number] [place] [address] Mar, [facility] [place] [facility] [address] [id number] [place] [address]- [address]298 Mar, [facility] [place] [facility] [address] [id number] [place] [address]- 4784 Mar, [facility] [place] [facility] [address] [id number] [place] [address] 2546 Mar, [facility] [place] [facility] [address] [id number] [place] [address] Feb, [facility] [place] [facility] [address] [id number] [place] [address] Feb, [facility] [place] [facility] [address] [id number] [place] [address] Feb, [facility] [place] [facility] [address] [id number] [place] [address]- [address] Jan, [facility] [place] [facility] [address] [id number] [place] [address]- [address] Jan, [facility] [place] [facility] [address] [id number] [place] [address]- 49[address] Jan, [facility] [place] [facility] [address] [id number] [place] [address]139 Dec, [facility] [place] [facility] [address] [id number] [place] [address]- [address] 15 Dec, 2011 [facility] [place] [facility] [address] [id number] [place] [address] Dec, [facility] [place] [facility] [address] [id number] [place] [address] 2083 Dec, [facility] [place] [facility] [address] [id number] [place] [address] Dec, [facility] [place] [facility] [address] [id number] [place] [address]- 3176 Nov, [facility] [place] [facility] [address] [id number] [place] [address] Nov, [facility] [address] [id number] [place] [address]237 Oct, [facility] [place] [facility] [address] [id number] [place] [address] September, [facility] [place] [facility] [address] [id number] [place] [address]- 4423 September, [facility] [place] [facility] [address] [id number] [place] [address]- 8236 September, [facility] [place] [facility] [address] [id number] [place] [address]- 6[address] September, [facility] [place] [facility] [address] [id number] [place] [address]- 2410 September, [facility] [place] [facility] [address] [id number] [place] [address]- [address]130 Aug, [facility] [place] [facility] [address] [id number] [place] [address]- 6[address] 16 Jul, 2011 [facility] [place] [facility] [address] [id number] [place] [address]- [address]39 15 Jul, 2011 [facility] [place] [facility] [address] [id number] [place] [address]- [address] 14 Jul, 2011 [facility] [place] [facility] [address] [id number] [place] [address]- [address]324 14 Jul, 2011 [facility] [place] [facility] [address] [id number] [place] [address]- [address] Jul, [facility] [place] [facility] [address] [id number] [place] [address]- 9515 Jul, [facility] [place] [facility] [address] [id number] [place] [address]- [address] 08 Jul, 2011 [facility] [place] [facility] [address] [id number] [place] [address]- [address]143 05 Jul, 2011 [facility] [place] [facility] [address] [id number] [place] [address]- 5160 27 Jun, 2011 [facility] [place] [facility] [address] [id number] [place] [address]- [address] 16 Jun, 2011 [facility] [place] [facility] [address] [id number] [place] [address]- 4632 10 Jun, 2011 [facility] [place] [facility] [address] [id number] [place] [address]- 3293 May, [facility] [place] [facility] [address] [id number] [place] [address]- 5620 Apr, [facility] [place] [facility] [address] [id number] [place] [address]- 0056 Apr, [facility] [place] [facility] [address] [id number] [place] [address]- 0249 Mar, [facility] [place] [facility] [address] [id number] [place] [address]- 1222 Mar, [facility] [place] [facility] [address] [id number] [place] [address]- 3231 Mar, [facility] [place] [facility] [address] [id number] [place] [address]- 3890 Feb, [facility] [place] [facility] [address] [id number] [place] [address]- 6003 Feb, [facility] [place] [facility] [address] [id number] [place] [address]- 6993 Feb, [facility] [place] [facility] [address] [id number] [place] [address]- 2490 Apr, [facility] [place] [facility] [address] [id number] [place] [address]- [address]127 Apr, [facility] [place] [facility] [address] [id number] [place] [address]- 2828 Mar, [facility] [place] [facility] [address] [id number] [place] [address]- 3718 Mar, [facility] [place] [facility] [address] [id number] [place] [address]- 4176 Mar, [facility] [place] [facility] [address] [id number] [place] [address]- 7003 Mar, [facility] [address] [id number] [place] [address]- 9530 Mar, [facility] [place] [facility] [address] [id number] [place] [address]- 0260 Feb, [facility] [address] [id number] [place] [address]- 8287 September, [facility] [address] [id number] [place] [address]- 2198 Aug, [facility] [address] [id number] [place] [address]- 5422 Apr, [facility] [address] [id number] [place] [address]- 8772 15 Apr, 2009 [facility] [address] [id number] [place] [address]- 4510 Mar, [facility] [place] [facility] [address] [id number] [place] [address]- [address]269 Mar, [facility] [place] [facility] [address] [id number] [place] [address]- 5548 Mar, [facility] [place] [facility] [address] [id number] [place] [address]- 0215 Feb, [facility] [place] [facility] [address] [id number] [place] [address]- 8581 Jan, [facility] [place] [facility] [address] [id number] [place] [address]- 9784 Dec, [facility] [place] [facility] [address] [id number] [place] [address]- [address]1 15 Nov, 2008 [facility] [place] [facility] [address] [id number] [place] [address]- [address] Oct, [facility] [address] [facility] [id number] [place] [address]- [address] Apr, [facility] [address] [facility] [id number] [place] [address]- [address]46 Apr, [facility] [address] [facility] [id number] [place] [address]- [address]46 Apr, [facility] [address] [facility] [id number] [place] [address]- [address]46 Feb, IMMUNIZATIONS No Known Immunizations SOCIAL HISTORY Never Assessed REASON FOR VISIT Request return call PLAN OF CARE VITAL SIGNS MEDICATIONS Medication Instructions Dosage Frequency Start Date End Date Duration Status Levaquin 500 mg Orally Once a day 1 tablet 24h Feb, Feb, 07 days Active RESULTS No Results PROCEDURES No [...]
--- OUTSIDE RECORDS SUMMARY | 2017-12-04 17:59 | XMS REPORT ---
Author CEDRIC Peñaloza Organization [employer] Address Unknown Phone Unavailable Care Team Providers Care Loom Fixer Helper Name Role Phone CEDRIC LAWLER CP Unavailable [...] Start Date End Date Status Dosage Atenolol [facility] [id number] 100MG TAKE ONE TABLET BY MOUTH ONCE DAILY Results No Known Results Summary Purpose [employer] Submission
--- OUTSIDE RECORDS SUMMARY | 2017-12-04 17:59 | XMS REPORT ---
Author Author CERDIC LAWLER [facility] Address [address] [place] [address] Care Team Providers Care Tso Name Role Phone CEDRIC LAWLER Unavailable PROBLEMS Type Condition ICD9-CM Code HLO90-ZG Code Onset Dates Condition Status SNOMED Code Problem Restless leg syndrome G25.81 Active 93735590 Problem Essential hypertension I10 Active 13331584 Problem Diabetes mellitus type 2, controlled E11.9 Active 922134656 Problem Mild persistent asthma without complication J45.30 Active 752450661 Problem Nicotine dependence, uncomplicated, unspecified nicotine product type F17.200 Active 54232763 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
--- NOTE | 2017-12-04 18:00 | Diagnostic Imaging Report ---
INDICATION: Chest pain. COMPARISON: None. FINDINGS: Single view of the chest demonstrates mild cardiac enlargement. The lungs are clear. There is no pneumothorax. Osseous structures are normal. IMPRESSION: Mild cardiac enlargement without pulmonary edema or infiltrate. Dictated by: Dictated on workstation # [id number]
--- OUTSIDE RECORDS SUMMARY | 2017-12-04 18:00 | XMS REPORT ---
Author Author CEDRIC LAWLER Organization [facility] Address [address] [place] [address] Care Team Providers Care Tank Cleaner Name Role Phone CEDRIC LAWLER Unavailable PROBLEMS Type Condition ICD9-CM Code CTW66-AB Code Onset Dates Condition Status SNOMED Code Problem Nicotine dependence, uncomplicated, unspecified nicotine product type F17.200 Active 96651035 Problem Restless leg syndrome G25.81 Active 39071335 Problem Mild persistent asthma without complication J45.30 Active 488743539 Problem RLS (restless legs syndrome) G25.81 Active 56211818 Problem Hypertension, benign I10 Active 42518460 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 [id number] Problem Abnormal CT lung screening R93.8 Active 006173854 Problem Essential hypertension I10 Active 97525720 Problem Diabetes mellitus type 2, controlled E11.9 Active 557846228 ALLERGIES No Information ENCOUNTERS Encounter Location Date Diagnosis [facility] [address] [address] September, [facility] [id number] [place] [address] 78245 -5283 Jul, Chronic cough R05 [facility] [address] 15197- 1713 Jul, [facility] [id number] [place] [address] 41813- 1369 Jul, Diabetes mellitus type 2, controlled E11.9 [facility] [address] [address]68- 2328 14 Jul, 2017 [facility] [address] 06075- 5941 02 Jul, 2017 [facility] [address] 94886- 4542 Jun, [facility] [address] [address] Jun, Diabetes mellitus type 2, controlled E11.9 [facility] [address] [address] Jun, [facility] [id number] [place] [address] 94709- 5141 May, [facility] [id number] [place] [address] 57034- 6911 May, Diabetes mellitus type 2, controlled E11.9 [facility] [id number] [place] [address] 04581- 9767 Apr, [facility] [id number] [place] [address] 45004- 4538 Apr, Pneumonia of right upper lobe due to infectious organism J18.1 [facility] [id number] [address] Mar, [facility] [id number] [place] [address] 51894- 5557 Mar, [facility] [address] [address] 6[address] Mar, [facility] [id number] [place] [address] 06343- 8029 Mar, Coughing R05 and SOB (shortness of breath) R06.02 [facility] [address] [address] 6[address] 02 Mar, 2017 Diabetes mellitus type 2, controlled E11.9 ; Coughing R05 and SOB (shortness of breath) R06.02 [facility] [address] [address]- 0964 Feb, [facility] [id number] [place] [address] 78056- 1460 Feb, [facility] [address] [address] 6278 25 Jan, 2017 Hypertension, benign I10 and RLS (restless legs syndrome) G25.81 [facility] [id number] [place] [address] 99070- 6001 14 Jan, 2017 [facility] [id number] [place] [address] 12101- 4024 Dec, Pain in unspecified joint M25.50 and Mild persistent asthma without complication J45.30 [facility] [id number] [place] [address] 01698- 0493 Dec, [facility] [id number] [place] [address] 00712- [address] Dec, [address] lung screening R93.8 [facility] [id number] [place] [address] 84614- 3308 Dec, [facility] [id number] [place] [address] 01003- 9214 Nov, Screening for breast cancer Z12.31 [facility] [id number] [place] [address] 32122- 1454 Nov, [facility] [id number] [place] [address] 65420- 6002 Nov, Essential hypertension I10 [facility] [id number] [place] [address] 59177- 7466 Nov, Essential hypertension I10 [facility] [id number] [place] [address] 73823- 5344 Oct, Acute non-recurrent maxillary sinusitis J01.00 [facility] [id number] [place] [address] 84909- 1214 Oct, [facility] [id number] [place] [address] 80218- 2638 September, Acute non-recurrent maxillary sinusitis J01.00 [facility] [address] [address] September, Low back pain M54.5 [facility] [id number] [place] [address] 32151- 4520 September, [facility] [id number] [place] [address] 80483- 2340 Aug, Acute non-recurrent maxillary sinusitis J01.00 [facility] [id number] [place] [address] [id number] Aug, Dental examination Z01.20 [facility] [id number] [place] [address] 40829- 3132 Aug, [facility] [id number] [place] [address] 86411- 9991 Aug, [facility] [id number] [place] [address] 25435- 9529 Aug, [facility] [id number] [place] [address] 07643- 9346 Aug, Acute sinusitis J01.90 [facility] [id number] [place] [address] 47825- 6380 Jul, [facility] [id number] [place] [address] 24220- 5609 Jul, [facility] [id number] [place] [address] 22594- 0525 Jul, [facility] [id number] [place] [address] 58142- 4361 Jul, [facility] [id number] [place] [address] 05057- 6605 Jul, Frequent urination R35.0 and Acute cystitis with hematuria N30.01 [facility] [id number] [place] [address] 22219- 6622 Jul, [facility] [id number] [place] [address] 41742- 8999 Jun, [facility] [id number] [place] [address] 58791- 2419 Jun, Acute sinusitis J01.90 [facility] [id number] [place] [address] 36671- 1486 Jun, Diabetes mellitus type 2, controlled E11.9 ; Cough R05 ; Acute non-recurrent maxillary sinusitis J01.00 and 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 [facility] [id number] [place] [address] 04040- 5184 May, [facility] [id number] [place] [address] 67796- 0803 May, [facility] [id number] [place] [address] 10267- 2069 May, [facility] [id number] [place] [address] 34002- 8127 Apr, [facility] [id number] [place] [address] 97235- 2536 Apr, [facility] [id number] [place] [address] 41791- 6829 Apr, [facility] [id number] [place] [address] 94682 -7660 Apr, Acute non-recurrent maxillary sinusitis J01.00 [facility] [id number] [place] [address] 27406- 2943 Apr, [facility] [id number] [place] [address] 32898- 8424 Feb, [facility] [id number] [place] [address] 31132- 4735 Feb, [facility] [id number] [place] [address] 71766- 0749 Feb, [facility] [id number] [place] [address] 16270- 6779 Feb, [facility] [id number] [place] [address] 44773- 6662 Feb, [facility] [id number] [place] [address] 79646- 1998 Feb, [facility] [id number] [place] [address] 42949- 1398 Jan, RLS (restless legs syndrome) G25.81 ; Osteoarthritis of spine with radiculopathy, cervical region M47.22 ; Lumbar neuritis M54.16 and Left sciatic nerve pain M54.32 [facility] [id number] [place] [address] 30778- 8203 Jan, [facility] [id number] [place] [address] 42842- 0815 Dec, [facility] [id number] [place] [address] 31774- 9535 Nov, [facility] [id number] [place] [address] 11169- 9214 Nov, [facility] [id number] [place] [address] 72178- 2804 Nov, [facility] [id number] [place] [address] 09080- 8027 Nov, Restless leg syndrome G25.81 and Controlled type 2 diabetes mellitus without complication, without long-term current use of insulin E11.9 [facility] [id number] [place] [address] 25813- 3683 Nov, [facility] [id number] [place] [address] 82985- 9262 Oct, [facility] [id number] [place] [address] 62472- 0302 Oct, [facility] [id number] [place] [address] 62205- 9688 Oct, [facility] [id number] [place] [address] 52122- 0469 Oct, 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 lung screening R93.8 [place] [facility] [id number] [place] [address] 87351- 1008 Oct, [facility] [id number] [place] [address] 88098- 1675 September, [place] [facility] [id number] [place] [address] 32814- 2667 September, Physical exam, annual Z00.00 ; Nicotine dependence, uncomplicated, unspecified nicotine product type F17.200 ; Screening breast examination Z12.39 ; Restless leg syndrome G25.81 and Mild persistent asthma without complication J45.30 [place] [facility] [id number] [place] [address] 54957- 8454 September, [place] [facility] [id number] [place] [address] 31737- 4175 September, [place] [id number] [place] [address] 06719- 3909 Aug, [place] [facility] [id number] [place] [address] 77533- 8618 Jul, Dental examination Z01.20 and Dental caries K02.9 [place] [facility] [id number] [place] [address] 87517- 2020 Jul, [place] [facility] [id number] [place] [address] 33966- 2178 Jul, Diabetes mellitus type 2, controlled E11.9 and Pain in unspecified joint M25.50 [place] [facility] [id number] [place] [address] 75409- 8566 Jul, [facility] [id number] [place] [address] 62957- 7229 Jun, Dental examination Z01.20 [facility] [id number] [place] [address] 01477- 2402 May, [facility] [id number] [place] [address] 07063- 9025 May, [facility] [id number] [place] [address] 54832- 9756 Apr, [facility] [id number] [place] [address] 54811- 0627 Mar, [facility] [id number] [place] [address] 64569- 5566 Mar, Acute sinusitis J01.90 [facility] [id number] [place] [address] 19694- 7772 Feb, [facility] [id number] [place] [address] 39968- 8623 Jan, Flu vaccine need V04.81 [facility] [id number] [place] [address] 51064- 1956 Jan, [facility] [id number] [place] [address] 74771- 8933 Jan, Pain in joint, site unspecified 719.40 [facility] [id number] [place] [address] 90927- 1737 Dec, Pain in joint, site unspecified 719.40 [facility] [id number] [place] [address] 16085- 6526 Dec, [facility] [id number] [place] [address] 60797- 6919 Dec, [facility] [id number] [place] [address] 05097- 8285 Dec, Sciatica 724.3 ; Restless legs syndrome [RLS] 333.94 and Encounter for smoking cessation counseling V65.42 [facility] [address] [id number] [place] [address]- 9753 Dec, Nicotine dependence 305.1 [facility] [place] [facility] [address] [id number] [place] [address]- 4218 Nov, [facility] [place] [facility] [address] [facility] [place] [id number] [place] [address]- 5234 Oct, [facility] [place] [facility] [address] [id number] [place] [address]- 7116 Oct, [facility] [place] [facility] [address] [id number] [place] [address]- 4398 September, [facility] [place] [facility] [address] [id number] [place] [address]- 2516 Aug, [facility] [place] [facility] [address] [facility] [place] [id number] [place] [address]- 3031 Aug, [facility] [place] [facility] [address] [facility] [id number] [address]- 5971 Jul, [facility] [place] [facility] [address] [facility] [place] [id number] [place] [address]- 6963 Jul, [facility] [place] [facility] [id number] [address]- 9965 Jul, [facility] [place] [facility] [id number] [address]- 5177 Jun, [facility] [place] [facility] [address] [id number] [address]- 4439 Jun, [facility] [place] [facility] [address] [facility] [place] [id number] [place] [address]- 8869 Jun, [facility] [place] [facility] [address] [facility] [place] [id number], [place] [address]- 3452 Jun, [facility] [place] [facility] [address] [facility] [place] [id number] [address]- 8339 May, [facility] [place] [facility] [address] [facility] [place] [id number], [place] [address]- 3623 May, [facility] [address] [id number] [place] [address]- 5004 May, [facility] [place] [facility] [address] [id number] [place] [address]- 6516 May, [facility] [place] [facility] [address] [id number] [place] [address]- 6228 May, [facility] [place] [facility] [address] [id number] [place] [address]- 8045 May, [facility] [place] [facility] [address] [id number] [place] [address]- 2976 May, [facility] [place] [facility] [address] [id number] [place] [address]- 5477 Apr, [facility] [address] [id number] [place] [address]- 5457 Apr, [facility] [place] [facility] [address] [id number] [place] [address]- 1549 Apr, [facility] [place] [facility] [address] [id number] [place] [address]- 4511 Apr, [facility] [place] [facility] [address] [facility] [place] [id number] [place] [address]- 3520 Apr, [facility] [place] [facility] [address] [id number] [place] [address]- 8223 Apr, [facility] [place] [facility] [address] [id number] [place] [address]- 1219 Apr, [facility] [place] [facility] [address] [id number] [place] [address]- 7731 Apr, [facility] [place] [facility] [address] [id number] [place] [address]- 3519 Apr, [facility] [place] [facility] [address] [id number] [place] [address]- 0673 Apr, [facility] [place] [facility] [address] [id number] [place] [address]- 8045 07 Mar, 2014 [facility] [place] [facility] [address] [id number] [place] [address]- 3769 07 Mar, 2014 [facility] [place] [facility] [address] [id number] [place] [address]- 5991 Mar, [facility] [place] [facility] [address] [id number] [place] 4494 Mar, [facility] [place] [facility] [address] [id number] [place] [address]- 8437 Mar, [facility] [place] [facility] [address] [id number] [place] [address]- 1905 Mar, [facility] [place] [facility] [address] [id number] [place] [address]- 5422 15 Feb, 2014 [facility] [place] [facility] [address] [id number] [place] [address]- 1726 15 Feb, 2014 [facility] [place] [facility] [address] [id number] [place] [address]- 3990 10 Feb, 2014 [facility] [place] [facility] [address] [id number] [place] [address]- 7096 10 Feb, 2014 [facility] [place] [facility] [address] [id number] [place] [address]- 7855 10 Feb, 2014 [facility] [place] [facility] [address] [id number] [place] [address]- 0249 10 Feb, 2014 [facility] [place] [facility] [address] [id number] [place] [address]- 3264 22 Jan, 2014 [facility] [place] [facility] [address] [id number] [place] [address]- 8422 22 Jan, 2014 [facility] [place] [facility] [address] [id number] [place] [address]- 1911 11 Jan, 2014 [facility] [place] [facility] [address] [id number] [place] [address]- 5058 Jan, [facility] [place] [facility] [address] [id number] [place] [address]- 5785 Dec, [facility] [place] [facility] [address] [id number] [place] [address]- 6135 Dec, [facility] [place] [facility] [address] [id number] [place] [address]- 6784 Dec, [facility] [place] [facility] [address] [id number] [place] [address]- 9955 Dec, [facility] [place] [facility] [address] [id number] [place] [address]- 1913 Dec, [facility] [place] [facility] [address] [id number] [place] [address]- 6280 Nov, [facility] [place] [facility] [address] [id number] [place] [address]- 6750 Nov, [facility] [place] [facility] [address] [id number] [place] [address]- 2920 Nov, [facility] [place] [facility] [address] [id number] [place] [address]- 0620 Nov, [facility] [place] [facility] [address] [id number] [place] [address]- 9277 Nov, [facility] [place] [facility] [address] [id number] [place] [address]- 8046 Nov, [facility] [place] [facility] [address] [id number] [place] [address]- 5440 Oct, [facility] [place] [facility] [address] [id number] [place] [address]- 3585 Oct, [facility] [place] [facility] [address] [id number] [place] [address]- 8415 September, [facility] [place] [facility] [address] [id number] [place] [address]- 7036 September, [facility] [place] [facility] [address] [id number] [place] [address]- 4765 14 Sep, 2013 [facility] [place] [facility] [address] [id number] [place] [address]- 0902 14 Sep, 2013 [facility] [place] [facility] [address] [id number] [place] [address]- 5491 14 Aug, 2013 [facility] [place] [facility] [address] [id number] [place] [address]- 1817 Aug, [facility] [place] [facility] [address] [id number] [place] [address]- 9732 17 Jul, 2013 [facility] [place] [facility] [address] [id number] [place] [address]- 6610 17 Jul, 2013 [facility] [place] [facility] [address] [id number] [place] [address]- 9297 Jul, [facility] [place] [facility] [address] [id number] [place] [address]- 1234 Jul, [facility] [place] [facility] [address] [id number] [place] [address]- 8940 Jun, [facility] [place] [facility] [address] [id number] [place] [address]- 0896 Jun, [facility] [place] [facility] [address] [id number] [place] [address]- 9801 Jun, [facility] [place] [facility] [address] [id number] [place] [address]- 4491 Jun, [facility] [place] [facility] [address] [id number] [place] [address]- 5651 May, [facility] [place] [facility] [address] [id number] [place] 8793 May, [facility] [place] [facility] [address] [id number] [place] [address]- 9683 May, [facility] [place] [facility] [address] [id number] [place] 0325 May, [facility] [place] [facility] [address] [id number] [place] [address] Apr, [facility] [place] [facility] [address] [id number] [place] [address] Apr, [facility] [place] [facility] [address] [id number] [place] [address] Apr, [facility] [place] [facility] [address] [id number] [place] [address] Mar, [facility] [place] [facility] [address] [id number] [place] [address] Mar, [facility] [place] [facility] [address] [id number] [place] [address] Mar, [facility] [place] [facility] [address] [id number] [place] [address] Mar, [facility] [place] [facility] [address] [id number], [place] [address] Feb, [facility] [address] [id number] [place] [address] Feb, [facility] [place] [facility] [address] [id number], [place] [address] Feb, [facility] [facility] [address] [id number], [place] [address] Feb, [facility] [address] [id number], [place] [address] Feb, [facility] [address] [id number], [place] [address] Feb, [facility] [address] [id number], [place] [address] Feb, [facility] [address] [id number] [address] Feb, [facility] [facility] [address] [id number], [place] [address] Jan, [facility] [address] [id number] [place] [address] Jan, [facility] [address] [id number] [place] [address] Jan, [facility] [address] [id number] [place] [address] Dec, [facility] [address] [id number] [place] [address] Dec, [facility] [address] [id number] [place] [address] Nov, [facility] [address] [id number] [place] [address] Nov, [facility] [address] [id number] [place] [address] Nov, [facility] [address] [id number] [place] [address] Nov, [facility] [address] [id number] [place] [address] Oct, [facility] [address] [id number] [place] [address] Oct, [facility] [address] [id number] [place] [address] Oct, [facility] [address] [id number] [place] [address] September, [facility] [facility] [address] [id number] [place] [address] September, [facility] [address] [id number] [place] [address] September, [facility] [address] [id number] [place] [address] September, [facility] [address] [id number] [place] [address] Aug, [facility] [address] [id number] [place] [address] Aug, [facility] [address] [id number] [place] [address] Jul, [facility] [place] [facility] [address] [id number] [place] [address] Jul, [facility] [place] [facility] [address] [id number] [place] [address] 06 Jul, 2012 [facility] [place] [facility] [address] [id number] [place] [address] 05 Jul, 2012 [facility] [place] [facility] [address] [id number] [place] [address] Jul, [facility] [place] [facility] [address] [id number] [place] [address] Jun, [facility] [place] [facility] [address] [id number] [place] [address] Jun, [facility] [place] [facility] [address] [id number] [place] [address] Jun, [facility] [place] [facility] [address] [id number] [place] [address] May, [facility] [place] [facility] [address] [id number] [place] [address] May, [facility] [place] [facility] [address] [id number] [place] [address] May, [facility] [place] [facility] [address] [id number] [place] [address] Apr, [facility] [place] [facility] [address] [id number] [place] [address] Apr, [facility] [place] [facility] [address] [id number] [address] Apr, [facility] [place] [facility] [address] [id number] [place] [address] Apr, [facility] [place] [facility] [address] [id number] [place] [address] Apr, [facility] [place] [facility] [address] [facility] [id number] [place] [address] Apr, [facility] [place] [facility] [address] [id number] [place] [address] Apr, [facility] [place] [facility] [address] [id number] [place] [address] Apr, [facility] [place] [facility] [address] [id number] [place] [address] Mar, [facility] [place] [facility] [address] [id number] [place] [address] 1989 Mar, [facility] [place] [facility] [address] [id number], [place] [address] Mar, [facility] [place] [facility] [address] [id number] [place] [address] Mar, [facility] [place] [facility] [address] [id number] [place] [address] Mar, [facility] [place] [facility] [address] [id number], [place] [address] Mar, [facility] [place] [facility] [address] [id number], [place] [address] Mar, [facility] [place] [facility] [address] [id number], [place] [address] Mar, [facility] [place] [facility] [address] [facility] [id number] [address] Mar, [facility] [place] [facility] [address] [facility] [id number], [place] [address] Mar, [facility] [place] [facility] [address] [id number] [place] [address] Feb, [facility] [address] [id number] [place] [address] Feb, [facility] [place] [facility] [address] [id number] [place] [address] Feb, [facility] [address] [id number] [place] [address]698 Jan, [facility] [place] [facility] [address] [id number] [place] [address] Jan, [facility] [place] [facility] [address] [id number] [place] [address] Jan, [facility] [place] [facility] [address] [id number] [place] [address] Dec, [facility] [place] [facility] [address] [id number] [place] [address] Dec, [facility] [address] [id number] [place] [address] Dec, [facility] [place] [facility] [address] [id number] [place] [address] 8789 Dec, [facility] [address] [id number] [place] [address] Dec, [facility] [place] [facility] [address] [id number] [place] [address] Nov, [facility] [place] [facility] [address] [id number] [place] [address] 8573 Nov, [facility] [place] [facility] [address] [id number] [place] [address] Oct, [facility] [place] [facility] [address] [id number] [place] [address] September, [facility] [place] [facility] [address] [id number] [place] [address] September, [facility] [address] [id number] [place] [address] September, [facility] [place] [facility] [address] [id number] [place] [address] 9726 September, [facility] [place] [facility] [address] [id number] [place] [address] 2586 September, [facility] [place] [facility] [address] [id number] [place] [address] 8076 Aug, [facility] [place] [facility] [address] [id number] [place] [address]24 16 Jul, 2011 [facility] [place] [facility] [address] [id number] [place] [address]- [address] 15 Jul, 2011 [facility] [place] [facility] [address] [id number] [place] [address]- [address]121 14 Jul, 2011 [facility] [place] [facility] [address] [id number] [place] [address]- 20[address] 14 Jul, 2011 [facility] [place] [facility] [address] [id number] [place] [address]- [address] Jul, [facility] [place] [facility] [address] [id number] [place] [address] Jul, [facility] [place] [facility] [address] [id number] [place] [address] 45[address] Jul, [facility] [place] [facility] [address] [id number] [place] [address]- [address]646 05 Jul, 2011 [facility] [place] [facility] [address] [id number] [place] [address]- 4226 Jun, [facility] [place] [facility] [address] [id number] [place] [address]- 6816 16 Jun, 2011 [facility] [place] [facility] [address] [id number] [place] [address]- 5946 Jun, [facility] [place] [facility] [address] [id number] [place] [address] 10 May, 2011 [facility] [place] [facility] [address] [id number] [place] [address]- 8994 Apr, [facility] [place] [facility] [address] [id number] [place] [address] 1913 Apr, [facility] [place] [facility] [address] [id number] [place] [address] 1826 Mar, [facility] [place] [facility] [address] [id number] [place] [address]- 0076 Mar, [facility] [place] [facility] [address] [id number] [place] [address]- 3460 Mar, [facility] [place] [facility] [address] [id number] [place] [address]- 5[address] Feb, [facility] [place] [facility] [address] [id number] [place] [address]- 63[address] Feb, [facility] [place] [facility] [address] [id number] [place] [address]- 9437 Feb, [facility] [place] [facility] [address] [id number] [place] [address]- 4662 Apr, [facility] [place] [facility] [address] [facility] [id number] [place] [address]- 2638 Apr, [facility] [place] [facility] [address] [id number] [place] [address]- 3910 Mar, [facility] [place] [facility] [address] [id number] [place] [address]- 9703 Mar, [facility] [place] [facility] [address] [id number] [place] [address]- 4359 Mar, [facility] [place] [facility] [address] [id number] [place] [address]- 3597 Mar, [facility] [place] [facility] [address] [facility] [id number] [place] [address]- 3121 Mar, [facility] [place] [facility] [address] [id number] [place] [address]- 1673 13 Feb, 2010 [facility] [place] [facility] [address] [id number] [place] [address]- 1502 September, [facility] [place] [facility] [address] [id number] [place] [address]- 3200 Aug, [facility] [place] [facility] [address] [id number] [place] [address]- 4901 Apr, [facility] [place] [facility] [address] [id number] [place] [address]- 4763 15 Apr, 2009 [facility] [place] [facility] [address] [id number] [place] [address]- 0182 Mar, [facility] [place] [facility] [address] [facility] [id number] [place] [address]- 0240 Mar, [facility] [place] [facility] [address] [id number] [place] [address]- 0238 Mar, [facility] [place] [facility] [address] [id number] [place] [address]- 5094 Feb, [facility] [place] [facility] [address] [id number] [place] [address]- 8712 18 Jan, 2009 [facility] [place] [facility] [address] [id number] [place] [address]- 58[address] Dec, [facility] [place] [facility] [address] [id number], [place] [address] 15 Nov, 2008 [facility] [place] [facility] [address] [id number] [place] [address]- 5966 Oct, [facility] [place] [facility] [address] [id number] [place] [address]- 9888 Apr, [facility] [place] [facility] [address] [id number] [place] [address]- 53[address] Apr, [facility] [place] [facility] [address] [id number], [place] [address] Apr, [facility] [address] [facility] [id number] [place] [address]- [address] Feb, IMMUNIZATIONS No Known Immunizations SOCIAL HISTORY Never Assessed REASON FOR VISIT Requests return call PLAN OF CARE VITAL SIGNS MEDICATIONS Unknown [...]
[2017-12-04] MEDS ORDERED: ONDANSETRON 4 MG/2 ML (SDV) Z0FRAN ONE (18:01)
--- OUTSIDE RECORDS SUMMARY | 2017-12-04 18:01 | XMS REPORT ---
Author CEDRIC Peñaloza Organization [employer] Address Unknown Phone Unavailable Care Team Providers Care Stoner Out Name Role Phone CEDRIC LAWLER CP Unavailable [...]
--- OUTSIDE RECORDS SUMMARY | 2017-12-04 18:01 | XMS REPORT ---
Author Author CRYSTAL BROWNE Organization [facility] Address [address] [place] [address] Care Team Providers Care Nut Sheller Machine Operator Name Role Phone CRYSTAL BROWNE Unavailable PROBLEMS Type Condition ICD9-CM Code TLV33-XX Code Onset Dates Condition Status SNOMED Code Problem Nicotine dependence, uncomplicated, unspecified nicotine product type F17.200 Active 72306608 Problem Restless leg syndrome G25.81 Active 81145969 Problem Mild persistent asthma without complication J45.30 Active 359371577 Problem RLS (restless legs syndrome) G25.81 Active 04322663 Problem Hypertension, benign I10 Active 90340367 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 684335945184157 Problem Abnormal CT lung screening R93.8 Active 841200444 Problem Essential hypertension I10 Active 20309040 Problem Diabetes mellitus type 2, controlled E11.9 Active 380124151 ALLERGIES Substance Reaction Event Type Date Status Latex rash Drug Allergy Jul, Active Lyrica nightmares Drug Allergy Jul, Active Codeine Phosphate nausea and vomiting Drug Allergy Jul, Active SOCIAL HISTORY Never Assessed PLAN OF CARE Activity Details Follow Up prn Reason: VITAL SIGNS Height 61 in 2016-07-17 Weight 158.3 lbs 2016-07-17 Temperature 98.6 degrees Fahrenheit 2016-07-17 Heart Rate 78 bpm 2016-07-17 Respiratory Rate 18 2016-07-17 BMI 29.91 kg/m2 2016-07-17 Blood pressure systolic 134 mmHg 2016-07-17 Blood pressure diastolic 78 mmHg 2016-07-17 MEDICATIONS Medication Instructions Dosage Frequency Start Date End Date Duration Status Requip XL 4 MG Orally Once a day 1 tablet 24h September, Active Pantoprazole Sodium 40MG Orally Once a day TAKE ONE TABLET BY MOUTH ONCE DAILY 24h 90 days Active Albuterol Sulfate HFA 108 (90 Base) MCG/ACT Inhalation every 4 hrs 2 puffs as needed 4h September, Active Atenolol 100MG Orally Once a day 1 tablet 24h 90 days Active Chlorpheniramine Maleate 8 mg 1 capsule by Oral route 2 times per day PRN Jan, Active Glucometer 1 test blood sugar Nov, Active Ciprofloxacin HCl 500 mg Orally Twice a day 1 tablet 12h Jul, Jul, 07 days Active Hydrocodone-Acetaminophen 10-325 MG Orally every 6 hrs-MUST HAVE APPT FOR FURTHER REFILLS take 1 tablet Jun, 28 days Active Parafon Forte DSC 500MG Orally 2 times a day 1 tablet 12h 30 Active Advair Diskus 250/50 INHALE ONE DOSE BY MOUTH IN THE MORNING AND ONE IN THE EVENING APPROXIMATELY 12 HOURS APART 30 Active Pyridium 200 mg Orally Three times a day 1 tablet after meals 8h Jul, Jul, 2 day(s) Active RESULTS Name Result Date Reference Range UA LONG DIP (IN HOUSE) 2016-07-17 Lot # [id number] Exp date 05/2017 Clarity slightly cloudy Color yellow Odor nonenegative GLU negative PARISH negative KET negative SG 1.020 BLO 2+ pH 7.0 Protein negative URO 0.2 NIT negative CRISTIANA 3+ Lot # Exp date CULTURE, URINE 2016-07-17 Urine Culture, Routine Final report Result 1 No growth PROCEDURES Procedure Date Ordered Result Body Site URINALYSIS, AUTO, W/O SCOPE July 17, 2016 URINE CULTURE/COLONY COUNT July 17, 2016 IMMUNIZATIONS No Known Immunizations MEDICAL (GENERAL) [...]
--- OUTSIDE RECORDS SUMMARY | 2017-12-04 18:01 | XMS REPORT ---
Author Author CEDRIC LAWLER Organization [facility] Address [address] [place] [address] Care Team Providers Care Principle Industrial Hygienist Name Role Phone CEDRIC LAWLER Unavailable PROBLEMS Type Condition ICD9-CM Code LMG72-QM Code Onset Dates Condition Status SNOMED Code Problem Nicotine dependence, uncomplicated, unspecified nicotine product type F17.200 Active 28214597 Problem Restless leg syndrome G25.81 Active 59739250 Problem Mild persistent asthma without complication J45.30 Active 355098051 Problem RLS (restless legs syndrome) G25.81 Active 63505571 Problem Hypertension, benign I10 Active 28132440 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 582695023663564 Problem Abnormal CT lung screening R93.8 Active 959481866 Problem Essential hypertension I10 Active 43046912 Problem Diabetes mellitus type 2, controlled E11.9 Active 506422546 ALLERGIES No Information ENCOUNTERS Encounter Location Date Diagnosis [facility] [address] [address] September, [facility] [id number] [place] [address] 40569 -0320 Jul, Chronic cough R05 [facility] [address] [address]- [address] Jul, [facility] [id number] [place] [address] 39461- 3961 Jul, Diabetes mellitus type 2, controlled E11.9 [facility] [address] [address]- 0281 14 Jul, 2017 [facility] [address] [address]- 8112 02 Jul, 2017 [facility] [address] 9[address]57- 3377 Jun, [facility] [address], [place] [address] 0[address] Jun, Diabetes mellitus type 2, controlled E11.9 [facility] [address], [place] [address] 0416 Jun, [facility] [id number] [place] [address] 60450- 1099 May, [facility] [id number] [place] [address] 73176- 8220 May, Diabetes mellitus type 2, controlled E11.9 [facility] [id number] [place] [address] 64836- 4908 Apr, [facility] [id number] [place] [address] 29943- 4897 Apr, Pneumonia of right upper lobe due to infectious organism J18.1 [facility] [id number] [address] 69[address] Mar, [facility] [id number] [place] [address] 28719- 6330 Mar, [facility] [address], [place] [address]- 0550 Mar, [facility] [id number] [place] [address] 27225- 1638 Mar, Coughing R05 and SOB (shortness of breath) R06.02 [facility] [address], [place] [address]- 6211 02 Mar, 2017 Diabetes mellitus type 2, controlled E11.9 ; Coughing R05 and SOB (shortness of breath) R06.02 [facility] [address], [place] [address]- 3840 Feb, [facility] [id number] [place] [address] 39735- 4424 Feb, [facility] [address], [place] [address]- 8273 25 Jan, 2017 Hypertension, benign I10 and RLS (restless legs syndrome) G25.81 [facility] [id number] [place] [address] 24357- 9751 14 Jan, 2017 [facility] [id number] [place] [address] 37024- 0311 Dec, Pain in unspecified joint M25.50 and Mild persistent asthma without complication J45.30 [facility] [id number] [place] [address] 18088- 1450 Dec, [facility] [id number] [place] [address] 19164- [address] Dec, [address] lung screening R93.8 [facility] [id number] [place] [address] 35207- 0440 Dec, [facility] [id number] [place] [address] 81972- 9784 Nov, Screening for breast cancer Z12.31 [facility] [id number] [place] [address] 42175- 8936 Nov, [facility] [id number] [place] [address] 77232- 7576 Nov, Essential hypertension I10 [facility] [id number] [place] [address] 69685- 0636 Nov, Essential hypertension I10 [facility] [id number] [place] [address] 83906- 2663 Oct, Acute non-recurrent maxillary sinusitis J01.00 [facility] [id number] [place] [address] 63179- 1942 Oct, [facility] [id number] [place] [address] 06291- 2369 September, Acute non-recurrent maxillary sinusitis J01.00 [facility] [address], [place] [address] September, Low back pain M54.5 [facility] [id number] [place] [address] 72421- 1163 September, [facility] [id number] [place] [address] 51627- 3617 Aug, Acute non-recurrent maxillary sinusitis J01.00 [facility] [id number] [place] [address] [id number] Aug, Dental examination Z01.20 [facility] [id number] [place] [address] 77127- 4033 Aug, [facility] [id number] [place] [address] 20026- 6349 Aug, [facility] [id number] [place] [address] 50917- 8045 Aug, [facility] [id number] [place] [address] 40163- 9863 Aug, Acute sinusitis J01.90 [facility] [id number] [place] [address] 65812- 7604 Jul, [facility] [id number] [place] [address] 14624- 0316 Jul, [facility] [id number] [place] [address] 08069- 3943 Jul, [facility] [id number] [place] [address] 78418- 9833 Jul, [facility] [id number] [place] [address] 31198- 7401 Jul, Frequent urination R35.0 and Acute cystitis with hematuria N30.01 [facility] [id number] [place] [address] 69266- 8052 Jul, [facility] [id number] [place] [address] 03725- 3133 Jun, [facility] [id number] [place] [address] 07661- 5925 Jun, Acute sinusitis J01.90 [facility] [id number] [place] [address] 49218- 4240 Jun, Diabetes mellitus type 2, controlled E11.9 ; Cough R05 ; Acute non-recurrent maxillary sinusitis J01.00 and 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 [facility] [id number] [place] [address] 41304- 8307 May, [facility] [id number] [place] [address] 40932- 5030 May, [facility] [id number] [place] [address] 60314- 2525 May, [facility] [id number] [place] [address] 40631- 3710 Apr, [facility] [id number] [place] [address] 09886- 6405 Apr, [facility] [id number] [place] [address] 15687- 9384 Apr, [facility] [id number] [place] [address] 60319 -7875 Apr, Acute non-recurrent maxillary sinusitis J01.00 [facility] [id number] [place] [address] 86047- 7716 Apr, [facility] [id number] [place] [address] 30278- 2048 Feb, [facility] [id number] [place] [address] 37442- 1145 Feb, [facility] [id number] [place] [address] 71284- 8694 Feb, [facility] [id number] [place] [address] 91512- 7924 Feb, [facility] [id number] [place] [address] 12503- 4420 Feb, [facility] [id number] [place] [address] 31457- 6869 Feb, [facility] [id number] [place] [address] 36485- 9072 Jan, RLS (restless legs syndrome) G25.81 ; Osteoarthritis of spine with radiculopathy, cervical region M47.22 ; Lumbar neuritis M54.16 and Left sciatic nerve pain M54.32 [facility] [id number] [place] [address] 56615- 8941 Jan, [facility] [id number] [place] [address] 62837- 9809 Dec, [facility] [id number] [place] [address] 41388- 0393 Nov, [facility] [id number] [place] [address] 64748- 6627 Nov, [facility] [id number] [place] [address] 97011- 5015 Nov, [facility] [id number] [place] [address] 93651- 5510 Nov, Restless leg syndrome G25.81 and Controlled type 2 diabetes mellitus without complication, without long-term current use of insulin E11.9 [facility] [id number] [place] [address] 55625- 1885 Nov, [facility] [id number] [place] [address] 15138- 7995 Oct, [facility] [id number] [place] [address] 20227- 8872 Oct, [facility] [id number] [place] [address] 45253- 3135 Oct, [facility] [id number] [place] [address] 98434- 3687 Oct, 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 lung screening R93.8 [facility] [id number] [place] [address] 55731- 1436 Oct, [facility] [id number] [place] [address] 14286- 0148 September, [facility] [id number] [place] [address] 39718- 1986 September, Physical exam, annual Z00.00 ; Nicotine dependence, uncomplicated, unspecified nicotine product type F17.200 ; Screening breast examination Z12.39 ; Restless leg syndrome G25.81 and Mild persistent asthma without complication J45.30 [facility] [id number] [place] [address] 00973- 6323 September, [facility] [id number] [place] [address] 15101- 9568 September, [facility] [id number] [place] [address] 58733- 6714 Aug, [facility] [id number] [place] [address] 66126- 7307 Jul, Dental examination Z01.20 and Dental caries K02.9 [facility] [id number] [place] [address] 02739- 8778 Jul, [facility] [id number] [place] [address] 70588- 0802 Jul, Diabetes mellitus type 2, controlled E11.9 and Pain in unspecified joint M25.50 [facility] [id number] [place] [address] 02285- 7051 Jul, [facility] [id number] [place] [address] 54489- 3570 Jun, Dental examination Z01.20 [facility] [id number] [place] [address] 03087- 1358 May, [facility] [id number] [place] [address] 77583- 1668 May, [facility] [id number] [place] [address] 41338- 4056 Apr, [facility] [id number] [place] [address] 02000- 5484 Mar, [facility] [id number] [place] [address] 65500- 6790 Mar, Acute sinusitis J01.90 [facility] [id number] [place] [address] 93536- 3267 Feb, [facility] [id number] [place] [address] 66670- 3270 Jan, Flu vaccine need V04.81 [facility] [id number] [place] [address] 46016- 0426 Jan, [facility] [id number] [place] [address] 21493- 7432 Jan, Pain in joint, site unspecified 719.40 [facility] [id number] [place] [address] 52052- 1129 Dec, Pain in joint, site unspecified 719.40 [facility] [id number] [place] [address] 87819- 0790 Dec, [facility] [id number] [place] [address] 52245- 7024 Dec, [facility] [id number] [place] [address] 31138- 7077 Dec, Sciatica 724.3 ; Restless legs syndrome [RLS] 333.94 and Encounter for smoking cessation counseling V65.42 [facility] [address] [id number] [place] [address]- 3527 Dec, Nicotine dependence 305.1 [facility] [place] [facility] [address] [id number] [place] [address]- 5787 Nov, [facility] [place] [facility] [address] [facility] [id number] [place] [address]- 1889 Oct, [facility] [place] [facility] [address] [id number] [place] [address]- 7931 Oct, [facility] [place] [facility] [address] [id number] [place] [address]- 7190 September, [facility] [place] [facility] [address] [id number] [place] [address]- 4799 Aug, [facility] [place] [facility] [address] [facility] [id number] [place] [address]- 9521 Aug, [facility] [place] [facility] [address] [facility] [id number], [place] [address]- 5234 Jul, [facility] [place] [facility] [address] [facility] [id number] [place] [address]- 4268 Jul, [facility] [place] [facility] [id number] [address]- 7702 Jul, [facility] [place] [facility] [id number] [address]- 5530 Jun, [facility] [place] [facility] [address] [id number], [place] [address]- 3585 Jun, [facility] [place] [facility] [address] [facility] [id number] [place] [address]- 4964 Jun, [facility] [place] [facility] [address] [facility] [id number], [place] [address]- 1652 Jun, [facility] [place] [facility] [address] [facility] [id number], [place] [address]- 1099 May, [facility] [place] [facility] [address] [facility] [id number], [place] [address]- 2912 May, [facility] [address] [id number] [place] [address]- 0226 May, [facility] [place] [facility] [address] [id number] [place] [address]- 5582 May, [facility] [place] [facility] [address] [id number] [place] [address]- 9618 May, [facility] [place] [facility] [address] [id number] [place] [address]- 0039 May, [facility] [place] [facility] [address] [id number] [place] [address]- 4244 May, [facility] [place] [facility] [address] [id number] [place] [address]- 4522 Apr, [facility] [address] [id number] [place] [address]- 6246 Apr, [facility] [place] [facility] [address] [id number] [place] [address]- 8833 Apr, [facility] [place] [facility] [address] [id number] [place] [address]- 7185 Apr, [facility] [place] [facility] [address] [facility] [id number] [place] [address]- 9865 Apr, [facility] [place] [facility] [address] [id number] [place] [address]- 4732 Apr, [facility] [place] [facility] [address] [id number] [place] [address]- 9362 Apr, [facility] [place] [facility] [address] [id number] [place] [address]- 2504 Apr, [facility] [place] [facility] [address] [id number] [place] [address]- 9601 Apr, [facility] [place] [facility] [address] [id number] [place] [address]- 6587 Apr, [facility] [place] [facility] [address] [id number] [place] [address]- 6038 07 Mar, 2014 [facility] [place] [facility] [address] [id number] [place] [address]- 7794 07 Mar, 2014 [facility] [place] [facility] [address] [id number] [place] [address]- 1954 Mar, [facility] [place] [facility] [address] [id number] [place] 4165 Mar, [facility] [place] [facility] [address] [id number] [place] [address]- 7119 Mar, [facility] [place] [facility] [address] [id number] [place] [address]- 3577 Mar, [facility] [place] [facility] [address] [id number] [place] [address]- 3754 15 Feb, 2014 [facility] [place] [facility] [address] [id number] [place] [address]- 6985 15 Feb, 2014 [facility] [place] [facility] [address] [id number] [place] [address]- 7421 10 Feb, 2014 [facility] [place] [facility] [address] [id number] [place] [address]- 8115 10 Feb, 2014 [facility] [place] [facility] [address] [id number] [place] [address]- 8979 10 Feb, 2014 [facility] [place] [facility] [address] [id number] [place] [address]- 8350 10 Feb, 2014 [facility] [place] [facility] [address] [id number] [place] [address]- 3953 22 Jan, 2014 [facility] [place] [facility] [address] [id number] [place] [address]- 1538 22 Jan, 2014 [facility] [place] [facility] [address] [id number] [place] [address]- 5433 11 Jan, 2014 [facility] [place] [facility] [address] [id number] [place] [address]- 8175 Jan, [facility] [place] [facility] [address] [id number] [place] [address]- 7278 Dec, [facility] [place] [facility] [address] [id number] [place] [address]- 5289 Dec, [facility] [place] [facility] [address] [id number] [place] [address]- 0043 Dec, [facility] [place] [facility] [address] [id number] [place] [address]- 0510 Dec, [facility] [place] [facility] [address] [id number] [place] [address]- 7333 Dec, [facility] [place] [facility] [address] [id number] [place] [address]- 1562 Nov, [facility] [place] [facility] [address] [id number] [place] [address]- 3240 Nov, [facility] [place] [facility] [address] [id number] [place] [address]- 8632 Nov, [facility] [place] [facility] [address] [id number] [place] [address] Nov, [facility] [place] [facility] [address] [id number] [place] [address] Nov, [facility] [place] [facility] [address] [id number] [place] [address] Nov, [facility] [place] [facility] [address] [id number] [place] [address] Oct, [facility] [place] [facility] [address] [id number] [place] [address] Oct, [facility] [place] [facility] [address] [id number] [place] [address] September, [facility] [place] [facility] [address] [id number] [place] [address] September, [facility] [place] [facility] [address] [id number] [place] [address] 14 Sep, 2013 [facility] [place] [facility] [address] [id number] [place] [address] 14 Sep, 2013 [facility] [place] [facility] [address] [id number] [place] [address] 14 Aug, 2013 [facility] [place] [facility] [address] [id number] [place] [address] Aug, [facility] [place] [facility] [address] [id number] [place] [address] 17 Jul, 2013 [facility] [place] [facility] [address] [id number] [place] [address] 17 Jul, 2013 [facility] [place] [facility] [address] [id number] [place] [address] Jul, [facility] [place] [facility] [address] [id number] [place] [address] Jul, [facility] [place] [facility] [address] [id number] [place] [address] Jun, [facility] [place] [facility] [address] [id number] [place] [address] Jun, [facility] [place] [facility] [address] [id number] [place] [address] Jun, [facility] [place] [facility] [address] [id number] [place] [address] Jun, [facility] [place] [facility] [address] [id number] [place] [address] May, [facility] [place] [facility] [address] [id number] [place] [address] May, [facility] [place] [facility] [address] [id number] [place] [address] May, [facility] [place] [facility] [address] [id number] [place] [address] May, [facility] [place] [facility] [address] [id number] [place] [address] Apr, [facility] [place] [facility] [address] [id number] [place] [address] Apr, [facility] [place] [facility] [address] [id number] [place] [address] Apr, [facility] [place] [facility] [address] [id number] [place] [address] Mar, [facility] [place] [facility] [address] [id number] [place] [address] Mar, [facility] [place] [facility] [address] [id number] [place] [address] Mar, [facility] [place] [facility] [address] [id number] [place] [address] Mar, [facility] [place] [facility] [address] [id number], [place] [address] Feb, [facility] [place] [facility] [address] [id number] [place] [address] Feb, [facility] [place] [facility] [address] [id number], [place] [address] Feb, [facility] [place] [facility] [address] [id number], [place] [address] Feb, [facility] [place] [facility] [address] [id number], [place] [address] Feb, [facility] [place] [facility] [address] [id number], [place] [address] Feb, [facility] [place] [facility] [address] [id number], [place] [address] Feb, [facility] [place] [facility] [address] [id number] [address] Feb, [facility] [place] [facility] [address] [id number] [address] Jan, [facility] [address] [id number] [place] [address] Jan, [facility] [place] [facility] [address] [id number] [place] [address] Jan, [facility] [address] [id number] [place] [address] Dec, [facility] [place] [facility] [address] [id number] [place] [address] Dec, [facility] [address] [id number] [place] [address] Nov, [facility] [address] [id number] [place] [address] Nov, [facility] [address] [id number] [place] [address] Nov, [facility] [address] [id number] [place] [address] Nov, [facility] [address] [id number] [place] [address] Oct, [facility] [address] [id number] [place] [address] Oct, [facility] [address] [id number] [place] [address] Oct, [facility] [place] [facility] [address] [id number] [place] [address] September, [facility] [place] [facility] [address] [id number] [place] [address]604 September, [facility] [place] [facility] [address] [id number] [place] [address]- 4[address] September, [facility] [place] [facility] [address] [id number] [place] [address]- 2970 September, [facility] [place] [facility] [address] [id number] [place] [address]- 8735 Aug, [facility] [address] [id number] [place] [address]- 0068 Aug, [facility] [place] [facility] [address] [id number] [place] [address]- 82[address] Jul, [facility] [place] [facility] [address] [id number] [place] [address]- [address] Jul, [facility] [place] [facility] [address] [id number] [place] [address]- [address] 06 Jul, 2012 [facility] [place] [facility] [address] [id number] [place] [address]- [address] 05 Jul, 2012 [facility] [place] [facility] [address] [id number] [place] [address]- 46[address] Jul, [facility] [place] [facility] [address] [id number] [place] [address]- 53[address] Jun, [facility] [place] [facility] [address] [id number] [place] [address]- [address] Jun, [facility] [place] [facility] [address] [id number] [place] [address] 8[address] Jun, [facility] [place] [facility] [address] [id number] [place] [address] May, [facility] [place] [facility] [address] [id number] [place] [address] May, [facility] [place] [facility] [address] [id number] [place] [address]- 4310 May, [facility] [place] [facility] [address] [id number] [place] [address]- 1383 Apr, [facility] [place] [facility] [address] [id number] [place] [address]- 8539 Apr, [facility] [place] [facility] [address] [id number][place] [address] Apr, [facility] [place] [facility] [address] [id number] [place] [address]- 1156 Apr, [facility] [place] [facility] [address] [id number] [place] [address]- 0037 Apr, [facility] [place] [facility] [address] [facility] [id number] [place] [address] Apr, [facility] [place] [facility] [address] [id number] [place] [address] Apr, [facility] [place] [facility] [address] [id number] [place] [address]- 1747 Apr, [facility] [place] [facility] [address] [id number] [place] [address]- 9[address] Mar, [facility] [place] [facility] [address] [id number] [place] [address]- 3393 Mar, [facility] [place] [facility] [address] [id number], [place] [address] 39[address] Mar, [facility] [place] [facility] [address] [id number] [place] [address]- 8879 Mar, [facility] [place] [facility] [address] [id number] [place] [address]- 4035 Mar, [facility] [place] [facility] [address] [id number], [place] [address]- [address] Mar, [facility] [place] [facility] [address] [id number], [place] [address]- [address] Mar, [facility] [place] [facility] [address] [id number], [place] [address]- 6[address] Mar, [facility] [place] [facility] [address] [facility] [id number], [place] [address]- [address] Mar, [facility] [place] [facility] [address] [facility] [id number], [place] [address]- 69[address] Mar, [facility] [place] [facility] [address] [id number] [place] [address]- 3764 Feb, [facility] [address] [id number] [place] [address]- 6430 Feb, [facility] [place] [facility] [address] [id number] [place] [address]- 7226 Feb, [facility] [address] [id number] [place] [address]- 2350 Jan, [facility] [place] [facility] [address] [id number] [place] [address]- 5185 Jan, [facility] [place] [facility] [address] [id number] [place] [address]- 0829 Jan, [facility] [place] [facility] [address] [id number] [place] [address]- 8705 Dec, [facility] [place] [facility] [address] [id number] [place] [address]- 1240 Dec, [facility] [address] [id number] [place] [address]- 5217 Dec, [facility] [place] [facility] [address] [id number] [place] [address]- 5253 Dec, [facility] [address] [id number] [place] [address]- 2810 Dec, [facility] [place] [facility] [address] [id number] [place] [address]- 9987 Nov, [facility] [place] [facility] [address] [id number] [place] [address]- 8975 Nov, [facility] [place] [facility] [address] [id number] [place] [address]- 4650 Oct, [facility] [place] [facility] [address] [id number] [place] [address]- 4423 September, [facility] [place] [facility] [address] [id number] [place] [address]- 2650 September, [facility] [address] [id number] [place] [address]- 5219 September, [facility] [place] [facility] [address] [id number] [place] [address]- 3826 September, [facility] [place] [facility] [address] [id number] [place] [address]- 2316 September, [facility] [place] [facility] [address] [id number] [place] [address]- 3726 Aug, [facility] [place] [facility] [address] [id number] [place] [address]- 8580 16 Jul, 2011 [facility] [place] [facility] [address] [id number] [place] [address]- 0806 15 Jul, 2011 [facility] [place] [facility] [address] [id number] [place] [address]- 9200 14 Jul, 2011 [facility] [place] [facility] [address] [id number] [place] [address]- 4251 14 Jul, 2011 [facility] [place] [facility] [address] [id number] [place] [address]- 0824 Jul, [facility] [place] [facility] [address] [id number] [place] [address]- 3836 Jul, [facility] [place] [facility] [address] [id number] [place] [address]- 6086 Jul, [facility] [place] [facility] [address] [id number] [place] [address]- 6086 05 Jul, 2011 [facility] [place] [facility] [address] [id number] [place] [address]- 7096 Jun, [facility] [place] [facility] [address] [id number] [place] [address]- 1356 16 Jun, 2011 [facility] [place] [facility] [address] [id number] [place] [address]- 6 Jun, [facility] [place] [facility] [address] [id number] [place] [address]- 2141 10 May, 2011 [facility] [place] [facility] [address] [id number] [place] [address]- 7560 Apr, [facility] [place] [facility] [address] [id number] [place] [address]- 2246 Apr, [facility] [place] [facility] [address] [id number] [place] [address]- 0388 Mar, [facility] [place] [facility] [address] [id number] [place] [address]- 1574 Mar, [facility] [place] [facility] [address] [id number] [place] [address]- 0199 Mar, [facility] [place] [facility] [address] [id number] [place] [address]- 3066 Feb, [facility] [place] [facility] [address] [id number] [place] [address]- 2558 Feb, [facility] [place] [facility] [address] [id number] [place] [address]- 9626 Feb, [facility] [place] [facility] [address] [id number] [place] [address]- 2957 Apr, [facility] [place] [facility] [address] [facility] [id number] [place] [address]- 1898 Apr, [facility] [place] [facility] [address] [id number] [place] [address]- 4608 Mar, [facility] [place] [facility] [address] [id number] [place] [address]- 7399 Mar, [facility] [place] [facility] [address] [id number] [place] [address]- 4682 Mar, [facility] [place] [facility] [address] [id number] [place] [address]- 0047 Mar, [facility] [place] [facility] [address] [facility] [id number] [place] [address]- 2571 Mar, [facility] [place] [facility] [address] [id number] [place] [address]- 8043 13 Feb, 2010 [facility] [place] [facility] [address] [id number] [place] [address]- 3139 September, [facility] [place] [facility] [address] [id number] [place] [address]- 5820 Aug, [facility] [place] [facility] [address] [id number] [place] [address]- 7347 Apr, [facility] [place] [facility] [address] [id number] [place] [address]- 5452 15 Apr, 2009 [facility] [place] [facility] [address] [id number] [place] [address]- 1250 Mar, [facility] [place] [facility] [address] [facility] [id number] [place] [address]- 5561 Mar, [facility] [place] [facility] [address] [id number] [place] [address]- 0983 Mar, [facility] [place] [facility] [address] [id number] [place] [address]- 5951 Feb, [facility] [place] [facility] [address] [id number] [place] [address]- 4978 18 Jan, 2009 [facility] [place] [facility] [address] [id number] [place] [address]- 8145 Dec, [facility] [place] [facility] [address] [id number], [place] [address]- 0668 15 Nov, 2008 [facility] [place] [facility] [address] [id number] [place] [address]- 0018 Oct, [facility] [place] [facility] [address] [id number] [place] [address]- 0176 Apr, [facility] [place] [facility] [address] [id number] [place] [address]- 6783 Apr, [facility] [place] [facility] [address] [id number], [place] [address]- 7415 Apr, [facility] [address] [facility] [id number] [place] [address]- 4880 Feb, IMMUNIZATIONS No Known Immunizations SOCIAL HISTORY Never Assessed REASON FOR VISIT METOPROLOL SUCCINATE note PLAN OF CARE VITAL SIGNS MEDICATIONS Medication Instructions Dosage Frequency Start Date End Date Duration Status Metoprolol Tartrate 100 MG Orally Twice a day 1 tablet with food 12h Dec 30 day(s) Active RESULTS No Results PROCEDURES [...]
--- OUTSIDE RECORDS SUMMARY | 2017-12-04 18:01 | XMS REPORT ---
Author Author CEDRIC LAWLER Organization [facility] Address [address] [place] [address] Care Team Providers Care Catalogue And Special Products Manager Name Role Phone CEDRIC LAWLER Unavailable PROBLEMS Type Condition ICD9-CM Code XAR96-TX Code Onset Dates Condition Status SNOMED Code Problem Mild persistent asthma without complication J45.30 Active 405918468 Problem Essential hypertension I10 Active 81131348 Problem Diabetes mellitus type 2, controlled E11.9 Active 689923189 Problem Nicotine dependence, uncomplicated, unspecified nicotine product type F17.200 Active 65839018 Problem Restless leg syndrome G25.81 Active 91213439 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
--- OUTSIDE RECORDS SUMMARY | 2017-12-04 18:01 | XMS REPORT ---
Author Author CEDRIC LAWLER Organization [facility] Address [address] [place] [address] Care Team Providers Care Hydrometer Tester Name Role Phone CEDRIC LAWLER Unavailable PROBLEMS Type Condition ICD9-CM Code BTP09-NU Code Onset Dates Condition Status SNOMED Code Problem Nicotine dependence, uncomplicated, unspecified nicotine product type F17.200 Active 30270758 Problem Restless leg syndrome G25.81 Active 63042897 Problem Mild persistent asthma without complication J45.30 Active 454054128 Problem RLS (restless legs syndrome) G25.81 Active 37774097 Problem Hypertension, benign I10 Active 00498637 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 346347350083825 Problem Abnormal CT lung screening R93.8 Active 733571738 Problem Essential hypertension I10 Active 61409951 Problem Diabetes mellitus type 2, controlled E11.9 Active 810017759 ALLERGIES No Information ENCOUNTERS Encounter Location Date Diagnosis [facility] [address] [address] September, [facility] [id number] [place] [address] 8[address]81 -2636 Jul, Chronic cough R05 [facility] [address] [address] Jul, [facility] [id number] [place] [address] 37027- 7490 Jul, Diabetes mellitus type 2, controlled E11.9 [facility] [address] [address]- [address] 14 Jul, 2017 [facility] [address] [address]- [address]67 02 Jul, 2017 [facility] [address] [address]- 9[address] Jun, [facility] [address], [place] [address] Jun, Diabetes mellitus type 2, controlled E11.9 [facility] [address] [address] Jun, [facility] [id number] [place] [address] 04377- 3096 May, [facility] [id number] [place] [address] 35023- 0077 May, Diabetes mellitus type 2, controlled E11.9 [facility] [id number] [place] [address] 17243- 3302 Apr, [facility] [id number] [place] [address] 29078- 5068 Apr, Pneumonia of right upper lobe due to infectious organism J18.1 [facility] [id number] [address] Mar, [facility] [id number] [place] [address] 06964- 0055 Mar, [facility] [address], [place] [address] 60[address] Mar, [facility] [id number] [place] [address] 64249- 3457 Mar, Coughing R05 and SOB (shortness of breath) R06.02 [facility] [address] [address] 02 Mar, 2017 Diabetes mellitus type 2, controlled E11.9 ; Coughing R05 and SOB (shortness of breath) R06.02 [facility] [address], [place] [address]- 58[address] Feb, [facility] [id number] [place] [address] 03490- 2626 Feb, [facility] [address], [place] [address] 25 Jan, 2017 Hypertension, benign I10 and RLS (restless legs syndrome) G25.81 [facility] [id number] [place] [address] 66956- 0155 14 Jan, 2017 [facility] [id number] [place] [address] 50121- 6266 Dec, Pain in unspecified joint M25.50 and Mild persistent asthma without complication J45.30 [facility] [id number] [place] [address] 25247- 6680 Dec, [facility] [id number] [place] [address] 70845- [address] Dec, [address] lung screening R93.8 [facility] [id number] [place] [address] 76948- 9608 Dec, [facility] [id number] [place] [address] 20409- 3649 Nov, Screening for breast cancer Z12.31 [facility] [id number] [place] [address] 68484- 0082 Nov, [facility] [id number] [place] [address] 96201- 7343 Nov, Essential hypertension I10 [facility] [id number] [place] [address] 02133- 4746 Nov, Essential hypertension I10 [facility] [address] [place] [address] 46795- 8585 Oct, Acute non-recurrent maxillary sinusitis J01.00 [facility] [id number] [place] [address] 72482- 9253 Oct, [facility] [id number] [place] [address] 41042- 3251 September, Acute non-recurrent maxillary sinusitis J01.00 [facility] [address], [place] [address] September, Low back pain M54.5 [facility] [id number] [place] [address] 43827- 3532 September, [facility] [id number] [place] [address] 39798- 8930 Aug, Acute non-recurrent maxillary sinusitis J01.00 [facility] [id number] [place] [address] [id number] Aug, Dental examination Z01.20 [facility] [id number] [place] [address] 19028- 6530 Aug, [facility] [id number] [place] [address] 99010- 7324 Aug, [facility] [id number] [place] [address] 37347- 4913 Aug, [facility] [id number] [place] [address] 69301- 9679 Aug, Acute sinusitis J01.90 [facility] [id number] [place] [address] 77822- 1308 Jul, [facility] [id number] [place] [address] 77827- 3321 Jul, [facility] [id number] [place] [address] 09691- 2362 Jul, [facility] [address] [place] [address] 94218- 5839 Jul, [facility] [id number] [place] [address] 79422- 3770 Jul, Frequent urination R35.0 and Acute cystitis with hematuria N30.01 [facility] [address] [place] [address] 88931- 3131 Jul, [facility] [id number] [place] [address] 69016- 7836 Jun, [facility] [id number] [place] [address] 53821- 3654 Jun, Acute sinusitis J01.90 [facility] [id number] [place] [address] 90108- 9276 Jun, Diabetes mellitus type 2, controlled E11.9 ; Cough R05 ; Acute non-recurrent maxillary sinusitis J01.00 and long term care pharmacist (current) use of opiate analgesic Z79.891 [facility] [id number] [place] [address] 17817- 8233 May, [facility] [id number] [place] [address] 95492- 1770 May, [facility] [id number] [place] [address] 45512- 7582 May, [facility] [id number] [place] [address] 57260- 0456 Apr, [facility] [id number] [place] [address] 36670- 5467 Apr, [facility] [id number] [place] [address] 52671- 9307 Apr, [facility] [address] [place] [address] 90118 -2157 Apr, Acute non-recurrent maxillary sinusitis J01.00 [facility] [id number] [place] [address] 24764- 6151 Apr, [facility] [id number] [place] [address] 43910- 9171 Feb, [facility] [id number] [place] [address] 18819- 0178 Feb, [facility] [id number] [place] [address] 86042- 7996 Feb, [facility] [address] [place] [address] 98360- 2189 Feb, [facility] [id number] [place] [address] 81699- 9858 Feb, [facility] [id number] [place] [address] 59754- 1362 Feb, [facility] [id number] [place] [address] 90261- 6240 Jan, RLS (restless legs syndrome) G25.81 ; Osteoarthritis of spine with radiculopathy, cervical region M47.22 ; Lumbar neuritis M54.16 and Left sciatic nerve pain M54.32 [facility] [id number] [place] [address] 50011- 7294 Jan, [facility] [id number] [place] [address] 22170- 3013 Dec, [facility] [id number] [place] [address] 64197- 9043 Nov, [facility] [id number] [place] [address] 76035- 8053 Nov, [facility] [id number] [place] [address] 90443- 2598 Nov, [facility] [id number] [place] [address] 85678- 3968 Nov, Restless leg syndrome G25.81 and Controlled type 2 diabetes mellitus without complication, without long-term current use of insulin E11.9 [facility] [id number] [place] [address] 30174- 5745 Nov, [facility] [id number] [place] [address] 50379- 3411 Oct, [facility] [id number] [place] [address] 72534- 4738 Oct, [facility] [id number] [place] [address] 61231- 7107 Oct, [facility] [id number] [place] [address] 38731- 3745 Oct, 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 lung screening R93.8 [facility] [id number] [place] [address] 94783- 3963 Oct, [facility] [id number] [place] [address] 31747- 3155 September, [facility] [id number] [place] [address] 20215- 8779 September, Physical exam, annual Z00.00 ; Nicotine dependence, uncomplicated, unspecified nicotine product type F17.200 ; Screening breast examination Z12.39 ; Restless leg syndrome G25.81 and Mild persistent asthma without complication J45.30 [facility] [id number] [place] [address] 41438- 5356 September, [facility] [id number] [place] [address] 90104- 1025 September, [facility] [id number] [place] [address] 32184- 0412 Aug, [facility] [id number] [place] [address] 13837- 6965 Jul, Dental examination Z01.20 and Dental caries K02.9 [facility] [id number] [place] [address] 49176- 1645 Jul, [facility] [id number] [place] [address] 44063- 1219 Jul, Diabetes mellitus type 2, controlled E11.9 and Pain in unspecified joint M25.50 [facility] [id number] [place] [address] 48739- 4335 Jul, [facility] [id number] [place] [address] 44290- 3401 Jun, Dental examination Z01.20 [facility] [id number] [place] [address] 20881- 7795 May, [facility] [id number] [place] [address] 21795- 9270 May, [facility] [id number] [place] [address] 95438- 0747 Apr, [facility] [id number] [place] [address] 34640- 9322 Mar, [facility] [id number] [place] [address] 76274- 8658 Mar, Acute sinusitis J01.90 [facility] [id number] [place] [address] 17443- 0239 Feb, [facility] [id number] [place] [address] 57567- 1705 Jan, Flu vaccine need V04.81 [facility] [id number] [place] [address] 60711- 2908 Jan, [facility] [id number] [place] [address] 36200- 5503 Jan, Pain in joint, site unspecified 719.40 [facility] [id number] [place] [address] 57310- 4950 Dec, Pain in joint, site unspecified 719.40 [facility] [id number] [place] [address] 65570- 0023 Dec, [facility] [id number] [place] [address] 68243- 3938 Dec, [facility] [id number] [place] [address] 83430- 1506 Dec, Sciatica 724.3 ; Restless legs syndrome [RLS] 333.94 and Encounter for smoking cessation counseling V65.42 [facility] [address] [id number] [place] [address]- 8796 Dec, Nicotine dependence 305.1 [facility] [place] [facility] [address] [id number] [place] [address]- 0123 Nov, [facility] [place] [facility] [address] [facility] [id number] [place] [address]- 8867 Oct, [facility] [place] [facility] [address] [id number] [place] [address]- 3022 Oct, [facility] [place] [facility] [address] [id number] [place] [address]- 8011 September, [facility] [place] [facility] [address] [id number] [place] [address]- 3204 Aug, [facility] [place] [facility] [address] [facility] [id number] [place] [address]- 9526 Aug, [facility] [place] [facility] [address] [facility] [id number], [place] [address]- 7317 Jul, [facility] [place] [facility] [address] [facility] [id number] [place] [address]- 3645 Jul, [facility] [place] [facility] [id number] [address]- 5124 Jul, [facility] [place] [facility] [id number] [address]- 2764 Jun, [facility] [place] [facility] [address] [id number] [address]- 6363 Jun, [facility] [place] [facility] [address] [facility] [id number] [place] [address]- 7443 Jun, [facility] [place] [facility] [address] [facility] [id number], [place] [address]- 8728 Jun, [facility] [place] [facility] [address] [facility] [id number], [place] [address]- 5438 May, [facility] [place] [facility] [address] [facility] [id number], [place] [address]- 2397 May, [facility] [address] [id number] [place] [address]- 9959 May, [facility] [place] [facility] [address] [id number] [place] [address]- 3354 May, [facility] [place] [facility] [address] [id number] [place] [address]- 6603 May, [facility] [place] [facility] [address] [id number] [place] [address]- 3168 May, [facility] [place] [facility] [address] [id number] [place] [address]- 9988 May, [facility] [place] [facility] [address] [id number] [place] [address]- 7431 Apr, [facility] [address] [id number] [place] [address]- 2697 Apr, [facility] [place] [facility] [address] [id number] [place] [address]- 0889 Apr, [facility] [place] [facility] [address] [id number] [place] [address]- 8561 Apr, [facility] [place] [facility] [address] [facility] [id number] [place] [address]- 9221 Apr, [facility] [place] [facility] [address] [id number] [place] [address]- 7346 Apr, [facility] [place] [facility] [address] [id number] [place] [address]- 5663 Apr, [facility] [place] [facility] [address] [id number] [place] [address]- 1420 Apr, [facility] [place] [facility] [address] [id number] [place] [address]- 6585 Apr, [facility] [place] [facility] [address] [id number] [place] [address]- 3185 Apr, [facility] [place] [facility] [address] [id number] [place] [address]- 7205 07 Mar, 2014 [facility] [place] [facility] [address] [id number] [place] [address]- 2654 07 Mar, 2014 [facility] [place] [facility] [address] [id number] [place] [address]- 3183 Mar, [facility] [place] [facility] [address] [id number] [place] 6493 Mar, [facility] [place] [facility] [address] [id number] [place] [address]- 4913 Mar, [facility] [place] [facility] [address] [id number] [place] [address]- 6130 Mar, [facility] [place] [facility] [address] [id number] [place] [address]- 4615 15 Feb, 2014 [facility] [place] [facility] [address] [id number] [place] [address]- 2120 15 Feb, 2014 [facility] [place] [facility] [address] [id number] [place] [address]- 8978 10 Feb, 2014 [facility] [place] [facility] [address] [id number] [place] [address]- 8820 10 Feb, 2014 [facility] [place] [facility] [address] [id number] [place] [address]- 7965 10 Feb, 2014 [facility] [place] [facility] [address] [id number] [place] [address]- 8939 10 Feb, 2014 [facility] [place] [facility] [address] [id number] [place] [address]- 1279 22 Jan, 2014 [facility] [place] [facility] [address] [id number] [place] [address]- 5650 22 Jan, 2014 [facility] [place] [facility] [address] [id number] [place] [address]- 7906 11 Jan, 2014 [facility] [place] [facility] [address] [id number] [place] [address]- 2297 Jan, [facility] [place] [facility] [address] [id number] [place] [address]- 2475 Dec, [facility] [place] [facility] [address] [id number] [place] [address]- 2746 Dec, [facility] [place] [facility] [address] [id number] [place] [address]- 8198 Dec, [facility] [place] [facility] [address] [id number] [place] [address]- 0834 Dec, [facility] [place] [facility] [address] [id number] [place] [address]- 8958 Dec, [facility] [place] [facility] [address] [id number] [place] [address]- 1537 Nov, [facility] [place] [facility] [address] [id number] [place] [address]- 9974 Nov, [facility] [place] [facility] [address] [id number] [place] [address]- 0004 Nov, [facility] [place] [facility] [address] [id number] [place] [address]- 2904 Nov, [facility] [place] [facility] [address] [id number] [place] [address]- 4521 Nov, [facility] [place] [facility] [address] [id number] [place] [address]- 6385 Nov, [facility] [place] [facility] [address] [id number] [place] [address]- 5614 Oct, [facility] [place] [facility] [address] [id number] [place] [address]- 1625 Oct, [facility] [place] [facility] [address] [id number] [place] [address]- 3562 September, [facility] [place] [facility] [address] [id number] [place] [address]- 7457 September, [facility] [place] [facility] [address] [id number] [place] [address]- 3685 14 Sep, 2013 [facility] [place] [facility] [address] [id number] [place] [address]- 6987 14 Sep, 2013 [facility] [place] [facility] [address] [id number] [place] [address]- 7065 14 Aug, 2013 [facility] [place] [facility] [address] [id number] [place] [address]- 2435 Aug, [facility] [place] [facility] [address] [id number] [place] [address] 17 Jul, 2013 [facility] [place] [facility] [address] [id number] [place] [address] 17 Jul, 2013 [facility] [place] [facility] [address] [id number] [place] [address] Jul, [facility] [place] [facility] [address] [id number] [place] [address] Jul, [facility] [place] [facility] [address] [id number] [place] [address] Jun, [facility] [place] [facility] [address] [id number] [place] [address] Jun, [facility] [place] [facility] [address] [id number] [place] [address] Jun, [facility] [place] [facility] [address] [id number] [place] [address] Jun, [facility] [place] [facility] [address] [id number] [place] [address] May, [facility] [place] [facility] [address] [id number] [place] [address] May, [facility] [place] [facility] [address] [id number] [place] [address] May, [facility] [place] [facility] [address] [id number] [place] [address] May, [facility] [place] [facility] [address] [id number] [place] [address] Apr, [facility] [place] [facility] [address] [id number] [place] [address] Apr, [facility] [place] [facility] [address] [id number] [place] [address] Apr, [facility] [place] [facility] [address] [id number] [place] [address] Mar, [facility] [place] [facility] [address] [id number] [place] [address] 1968 Mar, [facility] [place] [facility] [address] [id number] [place] [address] 1982 Mar, [facility] [place] [facility] [address] [id number] [place] [address] Mar, [facility] [place] [facility] [address] [id number], [place] [address] Feb, [facility] [place] [facility] [address] [id number] [place] [address] 39[address] Feb, [facility] [place] [facility] [address] [id number], [place] [address] Feb, [facility] [place] [facility] [address] [id number], [place] [address] Feb, [facility] [place] [facility] [address] [id number], [place] [address] Feb, [facility] [place] [facility] [address] [id number], [place] [address] Feb, [facility] [place] [facility] [address] [id number], [place] [address] Feb, [facility] [place] [facility] [address] [id number][place] [address] Feb, [facility] [place] [facility] [address] [id number], [place] [address] Jan, [facility] [address] [id number] [place] [address] Jan, [facility] [place] [facility] [address] [id number] [place] [address] Jan, [facility] [address] [id number] [place] [address] Dec, [facility] [place] [facility] [address] [id number] [place] [address] Dec, [facility] [address] [id number] [place] [address] Nov, [facility] [address] [id number] [place] [address] Nov, [facility] [address] [id number] [place] [address] Nov, [facility] [address] [id number] [place] [address] Nov, [facility] [address] [id number] [place] [address] Oct, [facility] [address] [id number] [place] [address] Oct, [facility] [address] [id number] [place] [address] Oct, [facility] [place] [facility] [address] [id number] [place] [address] September, [facility] [place] [facility] [address] [id number] [place] [address] September, [facility] [place] [facility] [address] [id number] [place] [address] September, [facility] [place] [facility] [address] [id number] [place] [address] September, [facility] [place] [facility] [address] [id number] [place] [address] Aug, [facility] [address] [id number] [place] [address] Aug, [facility] [place] [facility] [address] [id number] [place] [address] Jul, [facility] [place] [facility] [address] [id number] [place] [address] Jul, [facility] [place] [facility] [address] [id number] [place] [address] 06 Jul, 2012 [facility] [place] [facility] [address] [id number] [place] [address]- [address] 05 Jul, 2012 [facility] [place] [facility] [address] [id number] [place] [address] Jul, [facility] [place] [facility] [address] [id number] [place] [address]- [address] Jun, [facility] [place] [facility] [address] [id number] [place] [address] Jun, [facility] [place] [facility] [address] [id number] [place] [address] Jun, [facility] [place] [facility] [address] [id number] [place] [address] May, [facility] [place] [facility] [address] [id number] [place] [address] May, [facility] [place] [facility] [address] [id number] [place] [address] May, [facility] [place] [facility] [address] [id number] [place] [address]- [address] Apr, [facility] [place] [facility] [address] [id number] [place] [address] Apr, [facility] [place] [facility] [address] [id number], [place] [address] Apr, [facility] [place] [facility] [address] [id number] [place] [address] Apr, [facility] [place] [facility] [address] [id number] [place] [address] Apr, [facility] [place] [facility] [address] [facility] [id number] [place] [address] Apr, [facility] [place] [facility] [address] [id number] [place] [address] Apr, [facility] [place] [facility] [address] [id number] [place] [address] Apr, [facility] [place] [facility] [address] [id number] [place] [address] Mar, [facility] [place] [facility] [address] [id number] [place] [address] Mar, [facility] [place] [facility] [address] [id number], [place] [address] Mar, [facility] [place] [facility] [address] [id number] [place] [address] Mar, [facility] [place] [facility] [address] [id number] [place] [address] Mar, [facility] [place] [facility] [address] [id number], [place] [address] Mar, [facility] [place] [facility] [address] [id number], [place] [address] Mar, [facility] [place] [facility] [address] [id number], [place] [address] Mar, [facility] [place] [facility] [address] [facility] [id number], [place] [address] Mar, [facility] [place] [facility] [address] [facility] [id number], [place] [address] Mar, [facility] [place] [facility] [address] [id number] [place] [address] Feb, [facility] [address] [id number] [place] [address] Feb, [facility] [place] [facility] [address] [id number] [place] [address] Feb, [facility] [address] [id number] [place] [address] Jan, [facility] [place] [facility] [address] [id number] [place] [address] Jan, [facility] [place] [facility] [address] [id number] [place] [address] Jan, [facility] [place] [facility] [address] [id number] [place] [address] Dec, [facility] [place] [facility] [address] [id number] [place] [address]- [address] Dec, [facility] [address] [id number] [place] [address] 47[address] Dec, [facility] [place] [facility] [address] [id number] [place] [address]26 Dec, [facility] [address] [id number] [place] [address]- [address]68 Dec, [facility] [place] [facility] [address] [id number] [place] [address] Nov, [facility] [place] [facility] [address] [id number] [place] [address] 1573 Nov, [facility] [place] [facility] [address] [id number] [place] [address] Oct, [facility] [place] [facility] [address] [id number] [place] [address] September, [facility] [place] [facility] [address] [id number] [place] [address] 230[address] September, [facility] [address] [id number] [place] [address] September, [facility] [place] [facility] [address] [id number] [place] [address]- 4726 September, [facility] [place] [facility] [address] [id number] [place] [address] 1366 September, [facility] [place] [facility] [address] [id number] [place] [address] Aug, [facility] [place] [facility] [address] [id number] [place] [address] 16 Jul, 2011 [facility] [place] [facility] [address] [id number] [place] [address] 15 Jul, 2011 [facility] [place] [facility] [address] [id number] [place] [address]- [address]80 14 Jul, 2011 [facility] [place] [facility] [address] [id number] [place] [address]- [address] 14 Jul, 2011 [facility] [place] [facility] [address] [id number] [place] [address] Jul, [facility] [place] [facility] [address] [id number] [place] [address] Jul, [facility] [place] [facility] [address] [id number] [place] [address]- [address] Jul, [facility] [place] [facility] [address] [id number] [place] [address]- [address]36 05 Jul, 2011 [facility] [place] [facility] [address] [id number] [place] [address]- [address] Jun, [facility] [place] [facility] [address] [id number] [place] [address]- 9716 16 Jun, 2011 [facility] [place] [facility] [address] [id number] [place] [address]16 Jun, [facility] [place] [facility] [address] [id number] [place] [address]- [address]22 10 May, 2011 [facility] [place] [facility] [address] [id number] [place] [address]- [address] Apr, [facility] [place] [facility] [address] [id number] [place] [address]- [address]93 Apr, [facility] [place] [facility] [address] [id number] [place] [address]- 49[address] Mar, [facility] [place] [facility] [address] [id number] [place] [address]- [address]015 Mar, [facility] [place] [facility] [address] [id number] [place] [address]- [address]229 Mar, [facility] [place] [facility] [address] [id number] [place] [address]- [address] Feb, [facility] [place] [facility] [address] [id number] [place] [address]- 35[address] Feb, [facility] [place] [facility] [address] [id number] [place] [address]- 4195 Feb, [facility] [place] [facility] [address] [id number] [place] [address]- 4770 Apr, [facility] [place] [facility] [address] [facility] [id number] [place] [address]30 Apr, [facility] [place] [facility] [address] [id number] [place] [address]- [address] Mar, [facility] [place] [facility] [address] [id number] [place] [address]- 6487 Mar, [facility] [place] [facility] [address] [id number] [place] [address]- 2530 Mar, [facility] [place] [facility] [address] [id number] [place] [address]- [address]607 Mar, [facility] [place] [facility] [address] [facility] [id number] [place] [address]- 1016 Mar, [facility] [place] [facility] [address] [id number] [place] [address]- [address]149 13 Feb, 2010 [facility] [place] [facility] [address] [id number] [place] [address]- [address]455 September, [facility] [place] [facility] [address] [id number] [place] [address]- 6046 Aug, [facility] [place] [facility] [address] [id number] [place] [address]- 1021 Apr, [facility] [place] [facility] [address] [id number] [place] [address]- 1689 15 Apr, 2009 [facility] [place] [facility] [address] [id number] [place] [address]- 0729 Mar, [facility] [place] [facility] [address] [facility] [id number] [place] [address]- 6517 Mar, [facility] [place] [facility] [address] [id number] [place] [address]- 0780 Mar, [facility] [place] [facility] [address] [id number] [place] [address]- 2627 Feb, [facility] [place] [facility] [address] [id number] [place] [address]- 3031 18 Jan, 2009 [facility] [place] [facility] [address] [id number] [place] [address]- 9629 Dec, [facility] [place] [facility] [address] [id number], [place] [address] 15 Nov, 2008 [facility] [place] [facility] [address] [id number] [place] [address]- 6489 Oct, [facility] [place] [facility] [address] [id number] [place] [address]- 8615 Apr, [facility] [place] [facility] [address] [id number] [place] [address]- 2602 Apr, [facility] [place] [facility] [address] [id number], [place] [address] 47[address] Apr, [facility] [address] [facility] [id number] [place] [address]- [address] Feb, IMMUNIZATIONS No Known Immunizations SOCIAL HISTORY Never Assessed REASON FOR VISIT medication concerns PLAN OF CARE VITAL SIGNS MEDICATIONS Unknown [...]
--- OUTSIDE RECORDS SUMMARY | 2017-12-04 18:02 | XMS REPORT ---
Author Author CEDRIC LAWLER Organization [facility] Address [address] [place] [address] Care Team Providers Care Waitstaff Name Role Phone CEDRIC LAWLER Unavailable PROBLEMS Type Condition ICD9-CM Code OOA88-TM Code Onset Dates Condition Status SNOMED Code Problem Nicotine dependence, uncomplicated, unspecified nicotine product type F17.200 Active 45752833 Problem Restless leg syndrome G25.81 Active 50437346 Problem Mild persistent asthma without complication J45.30 Active 888233545 Problem RLS (restless legs syndrome) G25.81 Active 59343467 Problem Hypertension, benign I10 Active 03115065 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 275569606064997 Problem Abnormal CT lung screening R93.8 Active 765213815 Problem Essential hypertension I10 Active 52064220 Problem Diabetes mellitus type 2, controlled E11.9 Active 730070308 ALLERGIES No Information ENCOUNTERS Encounter Location Date Diagnosis [facility] [address] [address] September, [facility] [id number] [place] [address] 35340 -7850 Jul, Chronic cough R05 [facility] [address] [address]- [address] Jul, [facility] [id number] [place] [address] 64441- 9320 Jul, Diabetes mellitus type 2, controlled E11.9 [facility] [address] [address]- [address]164 14 Jul, 2017 [facility] [address] [address]- 45[address] 02 Jul, 2017 [facility] [address] [address]- 2673 Jun, [facility] [address] [address] Jun, Diabetes mellitus type 2, controlled E11.9 [facility] [address] [address] Jun, [facility] [id number] [place] [address] 54330- 9754 May, [facility] [address] [place] [address] 31236- 4920 May, Diabetes mellitus type 2, controlled E11.9 [facility] [id number] [place] [address] 18108- 2464 Apr, [facility] [id number] [place] [address] 52539- 8164 Apr, Pneumonia of right upper lobe due to infectious organism J18.1 [facility] [address] [id number] [address] Mar, [facility] [id number] [place] [address] 00051- 7702 Mar, [facility] [address] [address] 9985 Mar, [facility] [address] [place] [address] 53638- 9299 Mar, Coughing R05 and SOB (shortness of breath) R06.02 [facility] [address] [address] 02 Mar, 2017 Diabetes mellitus type 2, controlled E11.9 ; Coughing R05 and SOB (shortness of breath) R06.02 [facility] [address] [address] 8087 Feb, [facility] [id number] [place] [address] 56202- 0288 Feb, [facility] [address] [address] 88[address] 25 Jan, 2017 Hypertension, benign I10 and RLS (restless legs syndrome) G25.81 [facility] [id number] [place] [address] 33082- 0528 14 Jan, 2017 [facility] [id number] [place] [address] 42923- 4977 Dec, Pain in unspecified joint M25.50 and Mild persistent asthma without complication J45.30 [facility] [id number] [place] [address] 30922- 0998 Dec, [facility] [id number] [place] [address] 76878- [address] Dec, [address] lung screening R93.8 [facility] [id number] [place] [address] 62070- 7237 Dec, [facility] [id number] [place] [address] 34917- 5201 Nov, Screening for breast cancer Z12.31 [facility] [id number] [place] [address] 38682- 2633 Nov, [facility] [id number] [place] [address] 98034- 8373 Nov, Essential hypertension I10 [facility] [id number] [place] [address] 46214- 9108 Nov, Essential hypertension I10 [facility] [address] [place] [address] 65801- 3128 Oct, Acute non-recurrent maxillary sinusitis J01.00 [facility] [id number] [place] [address] 15181- 4381 Oct, [facility] [id number] [place] [address] 78814- 7236 September, Acute non-recurrent maxillary sinusitis J01.00 [facility] [address] [address] September, Low back pain M54.5 [facility] [id number] [place] [address] 53518- 3034 September, [facility] [id number] [place] [address] 86329- 3601 Aug, Acute non-recurrent maxillary sinusitis J01.00 [facility] [address] [place] [address] [id number] Aug, Dental examination Z01.20 [facility] [id number] [place] [address] 30372- 0032 Aug, [facility] [id number] [place] [address] 36593- 3312 Aug, [facility] [id number] [place] [address] 05493- 3859 Aug, [facility] [id number] [place] [address] 45732- 3459 Aug, Acute sinusitis J01.90 [facility] [id number] [place] [address] 88558- 0157 Jul, [facility] [id number] [place] [address] 71393- 1252 Jul, [facility] [address] [place] [address] 54257- 2927 Jul, [facility] [address] [place] [address] 33317- 9306 Jul, [facility] [id number] [place] [address] 86254- 1273 Jul, Frequent urination R35.0 and Acute cystitis with hematuria N30.01 [facility] [address] [place] [address] 79564- 7383 Jul, [facility] [id number] [place] [address] 02281- 1990 Jun, [facility] [id number] [place] [address] 66411- 4006 Jun, Acute sinusitis J01.90 [facility] [id number] [place] [address] 73477- 9389 Jun, Diabetes mellitus type 2, controlled E11.9 ; Cough R05 ; Acute non-recurrent maxillary sinusitis J01.00 and 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 [facility] [id number] [place] [address] 23999- 5911 May, [facility] [id number] [place] [address] 19203- 2127 May, [facility] [id number] [place] [address] 46572- 2588 May, [facility] [id number] [place] [address] 84026- 6830 Apr, [facility] [id number] [place] [address] 08721- 6705 Apr, [facility] [id number] [place] [address] 45928- 2284 Apr, [facility] [address] [place] [address] 10932 -5515 Apr, Acute non-recurrent maxillary sinusitis J01.00 [facility] [id number] [place] [address] 66325- 7030 Apr, [facility] [id number] [place] [address] 83864- 7029 Feb, [facility] [id number] [place] [address] 77991- 1477 Feb, [facility] [id number] [place] [address] 50039- 5548 Feb, [facility] [address] [place] [address] 11287- 5865 Feb, [facility] [id number] [place] [address] 66090- 5526 Feb, [facility] [id number] [place] [address] 64010- 3248 Feb, [facility] [id number] [place] [address] 56374- 6351 Jan, RLS (restless legs syndrome) G25.81 ; Osteoarthritis of spine with radiculopathy, cervical region M47.22 ; Lumbar neuritis M54.16 and Left sciatic nerve pain M54.32 [facility] [id number] [place] [address] 22067- 1165 Jan, [facility] [id number] [place] [address] 44991- 6395 Dec, [facility] [id number] [place] [address] 88685- 0204 Nov, [facility] [id number] [place] [address] 38658- 7918 Nov, [facility] [id number] [place] [address] 63256- 0273 Nov, [facility] [id number] [place] [address] 32829- 6664 Nov, Restless leg syndrome G25.81 and Controlled type 2 diabetes mellitus without complication, without long-term current use of insulin E11.9 [facility] [id number] [place] [address] 12521- 9788 Nov, [facility] [id number] [place] [address] 24584- 8081 Oct, [facility] [id number] [place] [address] 42337- 3082 Oct, [facility] [id number] [place] [address] 44239- 9031 Oct, [place] [id number] [place] [address] 41892- 3895 Oct, 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 lung screening R93.8 [facility] [id number] [place] [address] 58577- 8411 Oct, [place] [id number] [place] [address] 83344- 5871 September, [facility] [id number] [place] [address] 20759- 0305 September, Physical exam, annual Z00.00 ; Nicotine dependence, uncomplicated, unspecified nicotine product type F17.200 ; Screening breast examination Z12.39 ; Restless leg syndrome G25.81 and Mild persistent asthma without complication J45.30 [facility] [id number] [place] [address] 56183- 3118 September, [facility] [id number] [place] [address] 29851- 7100 September, [facility] [id number] [place] [address] 33459- 9809 Aug, [facility] [id number] [place] [address] 69453- 9175 Jul, Dental examination Z01.20 and Dental caries K02.9 [facility] [id number] [place] [address] 41931- 4733 Jul, [facility] [id number] [place] [address] 54165- 5994 Jul, Diabetes mellitus type 2, controlled E11.9 and Pain in unspecified joint M25.50 [facility] [id number] [place] [address] 28356- 5355 Jul, [facility] [id number] [place] [address] 48809- 4329 Jun, Dental examination Z01.20 [facility] [id number] [place] [address] 99958- 5122 May, [facility] [id number] [place] [address] 05049- 2904 May, [facility] [id number] [place] [address] 06839- 3530 Apr, [facility] [id number] [place] [address] 35755- 7266 Mar, [facility] [id number] [place] [address] 05479- 4259 Mar, Acute sinusitis J01.90 [facility] [id number] [place] [address] 53342- 5336 Feb, [facility] [id number] [place] [address] 19537- 0467 Jan, Flu vaccine need V04.81 [facility] [id number] [place] [address] 72451- 5501 Jan, [facility] [id number] [place] [address] 42475- 5641 Jan, Pain in joint, site unspecified 719.40 [facility] [id number] [place] [address] 64520- 2347 Dec, Pain in joint, site unspecified 719.40 [facility] [id number] [place] [address] 87763- 0016 Dec, [facility] [id number] [place] [address] 12031- 1288 Dec, [facility] [id number] [place] [address] 60657- 2201 Dec, Sciatica 724.3 ; Restless legs syndrome [RLS] 333.94 and Encounter for smoking cessation counseling V65.42 [facility] [address] [id number] [place] [address]- 2331 Dec, Nicotine dependence 305.1 [facility] [place] [facility] [address] [id number] [place] [address]- 1282 Nov, [facility] [place] [facility] [address] [facility] [id number] [place] [address]- 4026 Oct, [facility] [place] [facility] [address] [id number] [place] [address]- 6373 Oct, [facility] [place] [facility] [address] [id number] [place] [address]- 9739 September, [facility] [place] [facility] [address] [id number] [place] [address]- 2586 Aug, [facility] [place] [facility] [address] [facility] [id number] [place] [address]- 6223 Aug, [facility] [place] [facility] [address] [facility] [id number] [address]- 2452 Jul, [facility] [place] [facility] [address] [facility] [id number] [place] [address]- 3505 Jul, [facility] [place] [facility] [id number] [address]- 0282 Jul, [facility] [place] [facility] [id number] [address]- 3752 Jun, [facility] [place] [facility] [address] [id number], [place] [address]- 6465 Jun, [facility] [place] [facility] [address] [facility] [id number] [place] [address]- 9662 Jun, [facility] [place] [facility] [address] [facility] [id number], [place] [address]- 6320 Jun, [facility] [place] [facility] [address] [facility] [id number], [place] [address]- 4861 May, [facility] [place] [facility] [address] [facility] [id number], [place] [address]- 6763 May, [facility] [address] [id number] [place] [address]- 6253 May, [facility] [place] [facility] [address] [id number] [place] [address]- 8659 May, [facility] [place] [facility] [address] [id number] [place] [address]- 2897 May, [facility] [place] [facility] [address] [id number] [place] [address]- 9930 May, [facility] [place] [facility] [address] [id number] [place] [address]- 6217 May, [facility] [place] [facility] [address] [id number] [place] [address]- 9589 Apr, [facility] [address] [id number] [place] [address]- 6040 Apr, [facility] [place] [facility] [address] [id number] [place] [address]- 2062 Apr, [facility] [place] [facility] [address] [id number] [place] [address]- 6212 Apr, [facility] [place] [facility] [address] [facility] [id number] [place] [address]- 2631 Apr, [facility] [place] [facility] [address] [id number] [place] [address]- 8699 Apr, [facility] [place] [facility] [address] [id number] [place] [address]- 0294 Apr, [facility] [place] [facility] [address] [id number] [place] [address]- 6593 Apr, [facility] [place] [facility] [address] [id number] [place] [address]- 9716 Apr, [facility] [place] [facility] [address] [id number] [place] [address]- 9637 Apr, [facility] [place] [facility] [address] [id number] [place] [address]- 4994 07 Mar, 2014 [facility] [place] [facility] [address] [id number] [place] [address]- 4180 07 Mar, 2014 [facility] [place] [facility] [address] [id number] [place] [address]- 7140 Mar, [facility] [place] [facility] [address] [id number] [place] 9276 Mar, [facility] [place] [facility] [address] [id number] [place] [address]- 1959 Mar, [facility] [place] [facility] [address] [id number] [place] [address]- 4254 Mar, [facility] [place] [facility] [address] [id number] [place] [address]- 8067 15 Feb, 2014 [facility] [place] [facility] [address] [id number] [place] [address]- 2506 15 Feb, 2014 [facility] [place] [facility] [address] [id number] [place] [address]- 5528 10 Feb, 2014 [facility] [place] [facility] [address] [id number] [place] [address]- 0755 10 Feb, 2014 [facility] [place] [facility] [address] [id number] [place] [address]- 3451 10 Feb, 2014 [facility] [place] [facility] [address] [id number] [place] [address]- 9610 10 Feb, 2014 [facility] [place] [facility] [address] [id number] [place] [address]- 3441 22 Jan, 2014 [facility] [place] [facility] [address] [id number] [place] [address]- 2226 22 Jan, 2014 [facility] [place] [facility] [address] [id number] [place] [address]- 4847 11 Jan, 2014 [facility] [place] [facility] [address] [id number] [place] [address]- 0089 Jan, [facility] [place] [facility] [address] [id number] [place] [address]- 6510 Dec, [facility] [place] [facility] [address] [id number] [place] [address]- 5075 Dec, [facility] [place] [facility] [address] [id number] [place] [address]- 8217 Dec, [facility] [place] [facility] [address] [id number] [place] [address]- 5144 Dec, [facility] [place] [facility] [address] [id number] [place] [address]- 2181 Dec, [facility] [place] [facility] [address] [id number] [place] [address]- 0019 Nov, [facility] [place] [facility] [address] [id number] [place] [address]- 7050 Nov, [facility] [place] [facility] [address] [id number] [place] [address]- 9704 Nov, [facility] [place] [facility] [address] [id number] [place] [address]- 7582 Nov, [facility] [place] [facility] [address] [id number] [place] [address]- 5750 Nov, [facility] [place] [facility] [address] [id number] [place] [address]- 8790 Nov, [facility] [place] [facility] [address] [id number] [place] [address]- 9368 Oct, [facility] [place] [facility] [address] [id number] [place] [address]- 8786 Oct, [facility] [place] [facility] [address] [id number] [place] [address]- 0789 September, [facility] [place] [facility] [address] [id number] [place] [address]- 5502 September, [facility] [place] [facility] [address] [id number] [place] [address]- 9061 14 Sep, 2013 [facility] [place] [facility] [address] [id number] [place] [address]- 8693 14 Sep, 2013 [facility] [place] [facility] [address] [id number] [place] [address]- 4350 14 Aug, 2013 [facility] [place] [facility] [address] [id number] [place] [address]- 5583 Aug, [facility] [place] [facility] [address] [id number] [place] [address]- 1743 17 Jul, 2013 [facility] [place] [facility] [address] [id number] [place] [address] 17 Jul, 2013 [facility] [place] [facility] [address] [id number] [place] [address] Jul, [facility] [place] [facility] [address] [id number] [place] [address] Jul, [facility] [place] [facility] [address] [id number] [place] [address] Jun, [facility] [place] [facility] [address] [id number] [place] [address] Jun, [facility] [place] [facility] [address] [id number] [place] [address] Jun, [facility] [place] [facility] [address] [id number] [place] [address] Jun, [facility] [place] [facility] [address] [id number] [place] [address] May, [facility] [place] [facility] [address] [id number] [place] [address] May, [facility] [place] [facility] [address] [id number] [place] [address] May, [facility] [place] [facility] [address] [id number] [place] [address] May, [facility] [place] [facility] [address] [id number] [place] [address] Apr, [facility] [place] [facility] [address] [id number] [place] [address] Apr, [facility] [place] [facility] [address] [id number] [place] [address] Apr, [facility] [place] [facility] [address] [id number] [place] [address] Mar, [facility] [place] [facility] [address] [id number] [place] [address]- [address] Mar, [facility] [place] [facility] [address] [id number] [place] [address] Mar, [facility] [place] [facility] [address] [id number] [place] [address] Mar, [facility] [place] [facility] [address] [id number], [place] [address] Feb, [facility] [place] [facility] [address] [id number] [place] [address] Feb, [facility] [place] [facility] [address] [id number], [place] [address] Feb, [facility] [place] [facility] [address] [id number], [place] [address] Feb, [facility] [place] [facility] [address] [id number], [place] [address] Feb, [facility] [place] [facility] [address] [id number], [place] [address] Feb, [facility] [place] [facility] [address] [id number], [place] [address] Feb, [facility] [place] [facility] [address] [id number] [address] Feb, [facility] [place] [facility] [address] [id number], [place] [address] Jan, [facility] [address] [id number] [place] [address] Jan, [facility] [place] [facility] [address] [id number] [place] [address] Jan, [facility] [address] [id number] [place] [address] Dec, [facility] [place] [facility] [address] [id number] [place] [address] Dec, [facility] [address] [id number] [place] [address] Nov, [facility] [address] [id number] [place] [address] Nov, [facility] [address] [id number] [place] [address] Nov, [facility] [address] [id number] [place] [address] Nov, [facility] [address] [id number] [place] [address] Oct, [facility] [address] [id number] [place] [address] Oct, [facility] [address] [id number] [place] [address] Oct, [facility] [place] [facility] [address] [id number] [place] [address] September, [facility] [place] [facility] [address] [id number] [place] [address] September, [facility] [place] [facility] [address] [id number] [place] [address] September, [facility] [place] [facility] [address] [id number] [place] [address] September, [facility] [place] [facility] [address] [id number] [place] [address] Aug, [facility] [address] [id number] [place] [address] Aug, [facility] [place] [facility] [address] [id number] [place] [address] Jul, [facility] [place] [facility] [address] [id number] [place] [address]99 Jul, [facility] [place] [facility] [address] [id number] [place] [address] 06 Jul, 2012 [facility] [place] [facility] [address] [id number] [place] [address] 05 Jul, 2012 [facility] [place] [facility] [address] [id number] [place] [address] 379[address] Jul, [facility] [place] [facility] [address] [id number] [place] [address] Jun, [facility] [place] [facility] [address] [id number] [place] [address] 86[address] Jun, [facility] [place] [facility] [address] [id number] [place] [address]797 Jun, [facility] [place] [facility] [address] [id number] [place] [address] May, [facility] [place] [facility] [address] [id number] [place] [address]146 May, [facility] [place] [facility] [address] [id number] [place] [address] 4[address] May, [facility] [place] [facility] [address] [id number] [place] [address] 65[address] Apr, [facility] [place] [facility] [address] [id number] [place] [address] Apr, [facility] [place] [facility] [address] [id number], [place] [address] Apr, [facility] [place] [facility] [address] [id number] [place] [address] 2640 Apr, [facility] [place] [facility] [address] [id number] [place] [address] Apr, [facility] [place] [facility] [address] [facility] [id number] [place] [address] Apr, [facility] [place] [facility] [address] [id number] [place] [address] Apr, [facility] [place] [facility] [address] [id number] [place] [address] Apr, [facility] [place] [facility] [address] [id number] [place] [address] Mar, [facility] [place] [facility] [address] [id number] [place] [address] 15[address] Mar, [facility] [place] [facility] [address] [id number], [place] [address] Mar, [facility] [place] [facility] [address] [id number] [place] [address] 2071 Mar, [facility] [place] [facility] [address] [id number] [place] [address] 7978 Mar, [facility] [place] [facility] [address] [id number], [place] [address] Mar, [facility] [place] [facility] [address] [id number], [place] [address] Mar, [facility] [place] [facility] [address] [id number], [place] [address] Mar, [facility] [place] [facility] [address] [facility] [id number], [place] [address] Mar, [facility] [place] [facility] [address] [facility] [id number], [place] [address] Mar, [facility] [place] [facility] [address] [id number] [place] [address] 4828 Feb, [facility] [address] [id number] [place] [address]160 Feb, [facility] [place] [facility] [address] [id number] [place] [address] 5716 Feb, [facility] [address] [id number] [place] [address] Jan, [facility] [place] [facility] [address] [id number] [place] [address] 6884 Jan, [facility] [place] [facility] [address] [id number] [place] [address] 67[address] Jan, [facility] [place] [facility] [address] [id number] [place] [address] Dec, [facility] [place] [facility] [address] [id number] [place] [address]188 Dec, [facility] [address] [id number] [place] [address] 54[address] Dec, [facility] [place] [facility] [address] [id number] [place] [address] 68[address] Dec, [facility] [address] [id number] [place] [address] 6089 Dec, [facility] [place] [facility] [address] [id number] [place] [address] 3728 Nov, [facility] [place] [facility] [address] [id number] [place] [address] 3946 Nov, [facility] [place] [facility] [address] [id number] [place] [address]- 7437 Oct, [facility] [place] [facility] [address] [id number] [place] [address] 5548 September, [facility] [place] [facility] [address] [id number] [place] [address]- 5636 September, [facility] [address] [id number] [place] [address] 3211 September, [facility] [place] [facility] [address] [id number] [place] [address]- 6316 September, [facility] [place] [facility] [address] [id number] [place] [address]- 7096 September, [facility] [place] [facility] [address] [id number] [place] [address]- 0716 Aug, [facility] [place] [facility] [address] [id number] [place] [address]- 8034 16 Jul, 2011 [facility] [place] [facility] [address] [id number] [place] [address]- 0576 15 Jul, 2011 [facility] [place] [facility] [address] [id number] [place] [address]- 3927 14 Jul, 2011 [facility] [place] [facility] [address] [id number] [place] [address]- 5199 14 Jul, 2011 [facility] [place] [facility] [address] [id number] [place] [address] 2601 Jul, [facility] [place] [facility] [address] [id number] [place] [address]- 7436 Jul, [facility] [place] [facility] [address] [id number] [place] [address] 8996 Jul, [facility] [place] [facility] [address] [id number] [place] [address]- 5926 05 Jul, 2011 [facility] [place] [facility] [address] [id number] [place] [address]- 2336 Jun, [facility] [place] [facility] [address] [id number] [place] [address]- 4676 16 Jun, 2011 [facility] [place] [facility] [address] [id number] [place] [address]- 4956 Jun, [facility] [place] [facility] [address] [id number] [place] [address]- 1924 10 May, 2011 [facility] [place] [facility] [address] [id number] [place] [address]- 2870 Apr, [facility] [place] [facility] [address] [id number] [place] [address]- 5319 Apr, [facility] [place] [facility] [address] [id number] [place] [address]- 3229 Mar, [facility] [place] [facility] [address] [id number] [place] [address]- 6011 Mar, [facility] [place] [facility] [address] [id number] [place] [address]- 2214 Mar, [facility] [place] [facility] [address] [id number] [place] [address]- 3874 Feb, [facility] [place] [facility] [address] [id number] [place] [address]- 1479 Feb, [facility] [place] [facility] [address] [id number] [place] [address]- 3819 Feb, [facility] [place] [facility] [address] [id number] [place] [address]- 4439 Apr, [facility] [place] [facility] [address] [facility] [id number] [place] [address]- 0652 Apr, [facility] [place] [facility] [address] [id number] [place] [address]- 2075 Mar, [facility] [place] [facility] [address] [id number] [place] [address]- 6572 Mar, [facility] [place] [facility] [address] [id number] [place] [address]- 4749 Mar, [facility] [place] [facility] [address] [id number] [place] [address]- 3052 Mar, [facility] [place] [facility] [address] [facility] [id number] [place] [address]- 1628 Mar, [facility] [place] [facility] [address] [id number] [place] [address]- 6492 13 Feb, 2010 [facility] [place] [facility] [address] [id number] [place] [address]- 8648 September, [facility] [place] [facility] [address] [id number] [place] [address]- 6694 Aug, [facility] [place] [facility] [address] [id number] [place] [address]- 8352 Apr, [facility] [place] [facility] [address] [id number] [place] [address]- 3731 15 Apr, 2009 [facility] [place] [facility] [address] [id number] [place] [address]- 7989 Mar, [facility] [place] [facility] [address] [facility] [id number] [place] [address]- 6982 Mar, [facility] [place] [facility] [address] [id number] [place] [address]- 5308 Mar, [facility] [place] [facility] [address] [id number] [place] [address]- 4975 Feb, [facility] [place] [facility] [address] [id number] [place] [address]- 1014 18 Jan, 2009 [facility] [place] [facility] [address] [id number] [place] [address]- 6538 Dec, [facility] [place] [facility] [address] [id number], [place] [address]- 1617 15 Nov, 2008 [facility] [place] [facility] [address] [id number] [place] [address]- 5405 Oct, [facility] [place] [facility] [address] [id number] [place] [address]- 2144 Apr, [facility] [place] [facility] [address] [id number] [place] [address]- 5020 Apr, [facility] [place] [facility] [address] [id number], [place] [address]- 4940 Apr, [facility] [address] [facility] [id number] [place] [address]- [address]181 Feb, IMMUNIZATIONS No Known Immunizations SOCIAL HISTORY [...]
--- OUTSIDE RECORDS SUMMARY | 2017-12-04 18:03 | XMS REPORT ---
Author CEDRIC Peñaloza Organization [employer] Address Unknown Phone Unavailable Care Team Providers Care Front End Driver Name Role Phone CEDRIC LAWLER CP [...] Status Dosage Hydrocodone-Acetaminophen [facility] [address]-00 10-325 MG Orally every 6 hrs July 19, 2014 take 1 tablet Results No Known Results Summary Purpose [employer] Submission
--- OUTSIDE RECORDS SUMMARY | 2017-12-04 18:03 | XMS REPORT ---
Author Author CEDRIC LAWLER Organization [facility] Address [address] [place] [address] Care Team Providers Care Funding Coordinator Name Role Phone CEDRIC LAWLER Unavailable PROBLEMS Type Condition ICD9-CM Code IVO12-HR Code Onset Dates Condition Status SNOMED Code Problem Restless leg syndrome G25.81 Active 33232609 Problem Essential hypertension I10 Active 61776849 Problem Diabetes mellitus type 2, controlled E11.9 Active 628274670 Problem Mild persistent asthma without complication J45.30 Active 895231939 Problem Nicotine dependence, uncomplicated, unspecified nicotine product type F17.200 Active 54290428 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
--- OUTSIDE RECORDS SUMMARY | 2017-12-04 18:03 | XMS REPORT ---
Author Author CEDRIC LAWLER Organization [facility] Address [address] [place] [address] Care Team Providers Care Gum Sprayer Name Role Phone NURIS CEDRIC Unavailable PROBLEMS Type Condition ICD9-CM Code BEF67-BM Code Onset Dates Condition Status SNOMED Code Problem Nicotine dependence, uncomplicated, unspecified nicotine product type F17.200 Active 59034683 Problem Restless leg syndrome G25.81 Active 46818173 Problem Mild persistent asthma without complication J45.30 Active 700348238 Problem RLS (restless legs syndrome) G25.81 Active 77829323 Problem Hypertension, benign I10 Active 24952991 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
--- OUTSIDE RECORDS SUMMARY | 2017-12-04 18:03 | XMS REPORT ---
Author Author CEDRIC LAWLER Organization [facility] Address [address] [place] [address] Care Team Providers Care Environmental Health Safety Engineer Name Role Phone CEDRIC LAWLER Unavailable PROBLEMS Type Condition ICD9-CM Code [id number] Code Onset Dates Condition Status SNOMED Code Problem Nicotine dependence, uncomplicated, unspecified nicotine product type F17.200 Active 05259107 Problem Restless leg syndrome G25.81 Active 89968828 Problem Mild persistent asthma without complication J45.30 Active 613413311 Problem RLS (restless legs syndrome) G25.81 Active 60849667 Problem Hypertension, benign I10 Active 08308922 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 645762044186753 Problem Abnormal CT lung screening R93.8 Active 867957612 Problem Essential hypertension I10 Active 02451069 Problem Diabetes mellitus type 2, controlled E11.9 Active 205950250 ALLERGIES No Information ENCOUNTERS Encounter Location Date Diagnosis [facility] [id number] [place] [address] 83951- 5514 04 Aug, 2017 [facility] [id number] [place] [address] 67206- 2837 Jul, Diabetes mellitus type 2, controlled E11.9 [facility] [id number] [place] [address] 14287- 0073 14 Jul, 2017 [facility] [id number] [place] [address] 80251- 5124 02 Jul, 2017 [facility] [id number] [place] [address] 66980- 7827 28 Jun, 2017 [facility] [id number] [place] [address] 89247- 2513 13 Jun, 2017 Diabetes mellitus type 2, controlled E11.9 [facility] [id number] [address] Jun, [facility] [id number] [place] [address] 17719- 1136 May, [facility] [id number] [place] [address] 61006- 8330 May, Diabetes mellitus type 2, controlled E11.9 [place] [address] [address]- 1895 Apr, [facility] [id number] [place] [address] 32816- 0520 Apr, Pneumonia of right upper lobe due to infectious organism J18.1 [place] [address] 76294- 0299 Mar, [place] [id number] [place] [address] 19393- 8027 Mar, [place] [id number] [place] [address] 32177- 2340 Mar, [place] [id number] [place] [address] 74467- 1270 Mar, Coughing R05 and SOB (shortness of breath) R06.02 [place] [id number] [place] [address] 71048- 0876 Mar, Diabetes mellitus type 2, controlled E11.9 ; Coughing R05 and SOB (shortness of breath) R06.02 [facility] [id number] [place] [address] 35294- 3107 Feb, [place] [id number] [place] [address] 82501- 0449 Feb, [facility] [id number] [place] [address] 30227- 2306 Jan, Hypertension, benign I10 and RLS (restless legs syndrome) G25.81 [place] [address] 28411- 9316 Jan, [facility] [id number] [place] [address] 59664- 2283 Dec, Pain in unspecified joint M25.50 and Mild persistent asthma without complication J45.30 [facility] [address] [address] 2400 Dec, [facility] [id number] [place] [address] 18392- [address] Dec, [address] lung screening R93.8 [facility] [id number] [place] [address] 77086- 7519 Dec, [facility] [id number] [place] [address] 99304- 6060 Nov, Screening for breast cancer Z12.31 [facility] [id number] [place] [address] 22024- 9049 Nov, [facility] [id number] [place] [address] 17933- 4907 Nov, Essential hypertension I10 [facility] [id number] [place] [address] 14539- 3908 Nov, Essential hypertension I10 [facility] [id number] [place] [address] 38883- 2095 Oct, Acute non-recurrent maxillary sinusitis J01.00 [facility] [address] [address]- 7746 Oct, [facility] [address] [place] [address] 68763- 5932 September, Acute non-recurrent maxillary sinusitis J01.00 [facility] [address] [address] September, Low back pain M54.5 [facility] [address] [place] [address] 58095- 1210 September, [facility] [address], [place] [address]- 2698 Aug, Acute non-recurrent maxillary sinusitis J01.00 [facility] [id number] [id number] Aug, Dental examination Z01.20 [facility] [address] [address]- 8950 Aug, [facility] [address] [address]- 1275 Aug, [facility] [address] [address]- 1016 Aug, [facility] [address] [address]- 0817 Aug, Acute sinusitis J01.90 [facility] [address], [place] [address]- 8395 Jul, [facility] [address], [place] [address]- 0119 Jul, [facility] [address], [place] [address]- 1334 Jul, [facility] [address] [address]- 3089 Jul, [facility] [address], [place] [address]- 7534 Jul, Frequent urination R35.0 and Acute cystitis with hematuria N30.01 [facility] [address] [address]- 3084 Jul, [facility] [address] [address]- 3135 Jun, [facility] [address], [place] [address]- 0798 Jun, Acute sinusitis J01.90 [facility] [address], [place] [address]- 4791 Jun, Diabetes mellitus type 2, controlled E11.9 ; Cough R05 ; Acute non-recurrent maxillary sinusitis J01.00 and 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 Z79.891 [facility] [id number] [address]- 0672 May, [facility] [id number] [place] [address] 18162- 9314 May, [facility] [id number] [place] [address] 72276- 5523 May, [facility] [id number] [place] [address] 32723- 1518 Apr, [facility] [id number] [place] [address] 72420- 3319 Apr, [facility] [id number] [place] [address] 21401- 9550 Apr, [facility] [id number] [place] [address] 00043 -6696 Apr, Acute non-recurrent maxillary sinusitis J01.00 [facility] [address] [place] [address] 42147- 0996 Apr, [facility] [id number] [place] [address] 94235- 5875 Feb, [facility] [id number] [place] [address] 04349- 3024 Feb, [facility] [id number] [place] [address] 38201- 5354 Feb, [facility] [id number] [address]- 2259 Feb, [facility] [id number] [place] [address] 69873- 1735 Feb, [facility] [id number] [place] [address] 61421- 7968 Feb, [facility] [id number] [place] [address] 31858- 7500 Jan, RLS (restless legs syndrome) G25.81 ; Osteoarthritis of spine with radiculopathy, cervical region M47.22 ; Lumbar neuritis M54.16 and Left sciatic nerve pain M54.32 [facility] [id number] [place] [address] 28073- 9668 Jan, [facility] [id number] [place] [address] 52687- 7141 Dec, [facility] [id number] [place] [address] 08592- 0426 Nov, [facility] [id number] [place] [address] 51068- 0072 Nov, [facility] [id number] [place] [address] 22067- 7009 Nov, [facility] [id number] [place] [address] 66173- 8516 Nov, Restless leg syndrome G25.81 and Controlled type 2 diabetes mellitus without complication, without long-term current use of insulin E11.9 [facility] [id number] [place] [address] 65380- 2798 Nov, [facility] [id number] [place] [address] 24638- 8792 Oct, [facility] [id number] [place] [address] 41114- 7895 Oct, [facility] [id number] [place] [address] 38241- 6321 Oct, [facility] [id number] [place] [address] 64008- 8155 Oct, 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 lung screening R93.8 [facility] [address], [place] [address]- 6023 Oct, [facility] [id number] [place] [address] 13585- 9818 September, [facility] [id number] [place] [address] 79648- 0338 September, Physical exam, annual Z00.00 ; Nicotine dependence, uncomplicated, unspecified nicotine product type F17.200 ; Screening breast examination Z12.39 ; Restless leg syndrome G25.81 and Mild persistent asthma without complication J45.30 [place] [id number] [place] [address] 97782- 4021 September, [place] [id number] [place] [address] 06381- 4408 September, [place] [id number] [place] [address] 96619- 8336 Aug, [facility] [id number] [place] [address] 08588- 0588 09 Jul, 2015 Dental examination Z01.20 and Dental caries K02.9 [place] [id number] [place] [address] 88701- 8827 Jul, [facility] [id number] [place] [address] 00019- 7006 Jul, Diabetes mellitus type 2, controlled E11.9 and Pain in unspecified joint M25.50 [facility] [id number] [place] [address] 33047- 4540 Jul, [facility] [id number] [place] [address] 42927- 9812 29 Jun, 2015 Dental examination Z01.20 [facility] [id number] [place] [address] 64207- 0144 14 May, 2015 [facility] [id number] [place] [address] 03581- 5858 May, [facility] [address], [place] [address]- 2566 Apr, [facility] [id number] [place] [address] 18102- 7870 Mar, [facility] [id number] [place] [address] 79996- 6752 Mar, Acute sinusitis J01.90 [facility] [id number] [place] [address] 80438- 3740 Feb, [facility] [id number] [place] [address] 21266- 7774 Jan, Flu vaccine need V04.81 [facility] [id number] [place] [address] 61111- 7959 Jan, [facility] [id number] [place] [address] 00597- 4989 Jan, Pain in joint, site unspecified 719.40 [facility] [id number] [place] [address] 59306- 3072 Dec, Pain in joint, site unspecified 719.40 [facility] [id number] [place] [address] 14451- 2199 Dec, [facility] [id number] [place] [address] 61070- 3879 Dec, [facility] [id number] [place] [address] 99267- 8086 Dec, Sciatica 724.3 ; Restless legs syndrome [RLS] 333.94 and Encounter for smoking cessation counseling V65.42 [facility] [id number] [place] [address] 70099- 5604 Dec, Nicotine dependence 305.1 [facility] [id number] [place] [address] 33504- 0800 Nov, [facility] [place] [facility] [address] [id number] [place] [address]- 9391 Oct, [facility] [place] [facility] [address] [id number] [place] [address]- 4628 Oct, [facility] [place] [facility] [address] [id number] [place] [address]- 5717 September, [facility] [place] [facility] [address] [id number] [place] [address]- 9750 Aug, [facility] [place] [facility] [address] [id number] [place] [address]- 0789 Aug, [facility] [place] [facility] [address] [id number] [place] [address]- 2876 Jul, [facility] [place] [facility] [address] [facility] [id number] [place] [address]- 5282 Jul, [facility] [place] [facility] [address] [id number] [place] [address]- 6117 Jul, [facility] [place] [facility] [address] [id number] [place] [address]- 3771 Jun, [facility] [place] [facility] [address] [id number] [place] [address]- 9056 Jun, [facility] [place] [facility] [address] [id number] [place] [address]- 6393 Jun, [facility] [place] [facility] [address] [id number] [place] [address]- 8384 Jun, [facility] [place] [facility] [address] [id number] [place] [address]- 9426 May, [facility] [place] [facility] [address] [id number] [place] [address]- 5018 May, [facility] [place] [facility] [address] [id number] [place] [address]- 2517 May, [facility] [place] [facility] [address] [id number] [place] [address]- 7006 May, [facility] [place] [facility] [address] [id number] [place] [address]- 3018 May, [facility] [place] [facility] [address] [id number] [place] [address]- 5572 May, [facility] [place] [facility] [address] [id number] [place] [address]- 6034 May, [facility] [place] [facility] [address] [id number] [place] [address]- 8239 Apr, [facility] [place] [facility] [address] [id number] [place] [address]- 4451 Apr, [facility] [place] [facility] [address] [id number] [place] [address]- 1542 Apr, [facility] [place] [facility] [address] [id number] [place] [address]- 9813 Apr, [facility] [place] [facility] [address] [id number] [place] [address]- 7992 Apr, [facility] [place] [facility] [address] [id number] [place] [address]- 3642 Apr, [facility] [place] [facility] [address] [id number] [place] [address]- 7715 Apr, [facility] [place] [facility] [address] [id number] [place] [address]- 0716 Apr, [facility] [place] [facility] [address] [id number] [place] [address]- 1398 Apr, [facility] [place] [facility] [address] [id number] [place] 0271 Apr, [facility] [place] [facility] [address] [id number] [place] [address]- 1390 Mar, [facility] [place] [facility] [address] [id number] [place] 9784 Mar, [facility] [place] [facility] [address] [id number] [place] [address]- 0066 07 Mar, 2014 [facility] [place] [facility] [address] [id number] [place] [address]- 5917 Mar, [facility] [place] [facility] [address] [id number] [place] [address]- 0137 Mar, [facility] [place] [facility] [address] [id number] [place] [address]- 4700 Mar, [facility] [place] [facility] [address] [id number] [place] [address]- 1194 15 Feb, 2014 [facility] [place] [facility] [address] [id number] [place] [address]- 7255 15 Feb, 2014 [facility] [place] [facility] [address] [id number] [place] [address]- 2583 Feb, [facility] [place] [facility] [address] [id number] [place] [address]- 9688 Feb, [facility] [place] [facility] [address] [id number] [place] [address]- 6178 Feb, [facility] [place] [facility] [address] [id number] [place] [address]- 1934 Feb, [facility] [place] [facility] [address] [id number] [place] [address]- 2320 22 Jan, 2014 [facility] [place] [facility] [address] [id number] [place] [address]- 2540 22 Jan, 2014 [facility] [place] [facility] [address] [id number] [place] [address]- 6044 11 Jan, 2014 [facility] [place] [facility] [address] [id number] [place] [address]- 2121 11 Jan, 2014 [facility] [place] [facility] [address] [id number] [place] [address]- 6013 Dec, [facility] [place] [facility] [address] [id number] [place] [address]- 5535 Dec, [facility] [place] [facility] [address] [id number] [place] [address]- 4879 Dec, [facility] [place] [facility] [address] [id number] [place] [address]- 4885 Dec, [facility] [place] [facility] [address] [id number] [place] [address]- 3737 Dec, [facility] [place] [facility] [address] [id number] [place] [address]- 8041 Nov, [facility] [place] [facility] [address] [id number] [place] [address]- 9965 Nov, [facility] [place] [facility] [address] [id number] [place] [address]- 6884 Nov, [facility] [place] [facility] [address] [id number] [place] [address]- 8650 Nov, [facility] [place] [facility] [address] [id number] [place] [address]- 5540 Nov, [facility] [place] [facility] [address] [id number] [place] [address]- 3221 Nov, [facility] [place] [facility] [address] [id number] [place] [address]- 2691 Oct, [facility] [place] [facility] [address] [id number] [place] [address]- 5860 Oct, [facility] [place] [facility] [address] [id number] [place] [address]- 7942 September, [facility] [place] [facility] [address] [id number] [place] [address]- 8215 September, [facility] [place] [facility] [address] [id number] [place] [address]- 5336 September, [facility] [place] [facility] [address] [id number] [place] [address]- 7034 September, [facility] [place] [facility] [address] [id number] [place] [address]- 5423 14 Aug, 2013 [facility] [place] [facility] [address] [id number] [place] [address]- 3175 14 Aug, 2013 [facility] [place] [facility] [address] [id number] [place] [address]- 2226 17 Jul, 2013 [facility] [place] [facility] [address] [id number] [place] [address]- 0796 17 Jul, 2013 [facility] [place] [facility] [address] [id number] [place] [address]- 3496 14 Jul, 2013 [facility] [place] [facility] [address] [id number] [place] [address]- 9251 14 Jul, 2013 [facility] [place] [facility] [address] [id number] [place] [address]- 6887 12 Jun, 2013 [facility] [place] [facility] [address] [id number] [place] [address]- 5900 Jun, [facility] [place] [facility] [address] [id number] [place] [address]- 7879 Jun, [facility] [place] [facility] [address] [id number] [place] [address] Jun, [facility] [place] [facility] [address] [id number] [place] [address] May, [facility] [place] [facility] [address] [id number] [place] [address] May, [facility] [place] [facility] [address] [id number] [place] [address] May, [facility] [place] [facility] [address] [id number] [place] [address] May, [facility] [place] [facility] [address] [id number] [place] [address] Apr, [facility] [place] [facility] [address] [id number] [place] [address] Apr, [facility] [place] [facility] [address] [id number] [place] [address] Apr, [facility] [place] [facility] [address] [id number] [place] [address] Mar, [facility] [place] [facility] [address] [id number] [place] [address] Mar, [facility] [place] [facility] [address] [id number] [place] [address] Mar, [facility] [place] [facility] [address] [id number] [place] [address] Mar, [facility] [place] [facility] [address] [id number] [place] [address] Feb, [facility] [place] [facility] [address] [id number] [place] [address] Feb, [facility] [place] [facility] [address] [id number] [place] [address] Feb, [facility] [place] [facility] [address] [id number] [place] [address] Feb, [facility] [place] [facility] [address] [id number] [place] [address] Feb, [facility] [place] [facility] [address] [id number] [place] [address] Feb, [facility] [place] [facility] [address] [id number] [place] [address] Feb, [facility] [place] [facility] [address] [id number] [place] [address] Feb, [facility] [place] [facility] [address] [id number] [place] [address] Jan, [facility] [place] [facility] [address] [id number] [place] [address] Jan, [facility] [place] [facility] [address] [id number] [place] [address] Jan, [facility] [address] [id number] [place] [address] Dec, [facility] [place] [facility] [address] [id number] [place] [address] Dec, [facility] [place] [facility] [address] [id number] [place] [address] Nov, [facility] [place] [facility] [address] [id number] [place] [address] Nov, [facility] [place] [facility] [address] [id number] [place] [address] Nov, [facility] [place] [facility] [address] [id number] [place] [address] Nov, [facility] [place] [facility] [address] [id number] [place] [address] Oct, [facility] [place] [facility] [address] [id number] [place] [address] Oct, [facility] [place] [facility] [address] [id number] [place] [address] Oct, [facility] [place] [facility] [address] [id number] [place] [address] September, [facility] [place] [facility] [address] [id number] [place] [address] September, [facility] [place] [facility] [address] [id number] [place] [address] September, [facility] [place] [facility] [address] [id number] [place] [address] September, [facility] [place] [facility] [address] [id number] [place] [address] Aug, [facility] [place] [facility] [address] [id number] [place] [address] Aug, [facility] [place] [facility] [address] [id number] [place] [address] 26 Jul, 2012 [facility] [address] [id number] [place] [address] 15 Jul, 2012 [facility] [address] [id number] [place] [address] 2546 06 Jul, 2012 [facility] [address] [id number] [place] [address] 05 Jul, 2012 [facility] [address] [id number] [place] [address] 04 Jul, 2012 [facility] [address] [id number] [place] [address] Jun, [facility] [address] [id number] [place] [address] Jun, [facility] [address] [id number] [place] [address] Jun, [facility] [address] [id number] [place] [address] May, [facility] [address] [id number] [place] [address] May, [facility] [address] [id number] [place] [address] May, [facility] [address] [id number] [place] [address] Apr, [facility] [address] [id number] [place] [address] Apr, [facility] [place] [facility] [address] [id number] [place] [address] Apr, [facility] [address] [id number] [place] [address] Apr, [facility] [address] [id number] [place] [address]679 Apr, [facility] [place] [facility] [address] [id number] [place] [address] Apr, [facility] [place] [facility] [address] [id number] [place] [address] Apr, [facility] [place] [facility] [address] [id number] [place] [address] Apr, [facility] [place] [facility] [address] [id number] [place] [address] Mar, [facility] [place] [facility] [address] [id number] [place] [address] 1492 Mar, [facility] [place] [facility] [address] [id number] [place] [address] 9291 Mar, [facility] [place] [facility] [address] [facility] [id number] [place] [address] Mar, [facility] [place] [facility] [address] [id number] [address] Mar, [facility] [place] [facility] [address] [id number] [place] [address] Mar, [facility] [place] [facility] [address] [facility] [id number][place] [address] Mar, [facility] [place] [facility] [address] [id number], [place] [address] Mar, [facility] [place] [facility] [address] [id number], [place] [address] Mar, [facility] [place] [facility] [address] [id number] [place] [address] 2024 Mar, [facility] [place] [facility] [address] [id number][place] [address] Feb, [facility] [place] [facility] [address] [facility] [id number] [place] [address] 14[address] Feb, [facility] [place] [facility] [address] [id number] [place] [address] 02 Feb, 2012 [facility] [place] [facility] [address] [id number] [place] [address] 11 Jan, 2012 [facility] [place] [facility] [address] [id number] [place] [address] 07 Jan, 2012 [facility] [place] [facility] [address] [id number] [place] [address] 07 Jan, 2012 [facility] [place] [facility] [address] [id number] [place] [address] Dec, [facility] [place] [facility] [address] [id number] [place] [address]12 Dec, [facility] [place] [facility] [address] [id number] [place] [address] 8[address] Dec, [facility] [place] [facility] [address] [id number] [place] [address] 2569 Dec, [facility] [place] [facility] [address] [id number] [place] [address]41 Dec, [facility] [place] [facility] [address] [id number] [place] [address] Nov, [facility] [place] [facility] [address] [id number] [place] [address] 4165 Nov, [facility] [place] [facility] [address] [id number] [place] [address] 7160 Oct, [facility] [place] [facility] [address] [id number] [place] [address] 3786 September, [facility] [place] [facility] [address] [id number] [place] [address] 0897 September, [facility] [place] [facility] [address] [id number] [place] [address]- 1476 September, [facility] [place] [facility] [address] [id number] [place] [address] 2806 September, [facility] [place] [facility] [address] [id number] [place] [address] 4926 September, [facility] [place] [facility] [address] [id number] [place] [address] 3986 Aug, [facility] [place] [facility] [address] [id number] [place] [address]- 0496 16 Jul, 2011 [facility] [place] [facility] [address] [id number] [place] [address] 7516 15 Jul, 2011 [facility] [place] [facility] [address] [id number] [place] [address]598 14 Jul, 2011 [facility] [place] [facility] [address] [id number] [place] [address]- 6527 14 Jul, 2011 [facility] [place] [facility] [address] [id number] [place] [address] 1463 Jul, [facility] [place] [facility] [address] [id number] [place] [address] 3740 Jul, [facility] [place] [facility] [address] [id number] [place] [address] 9257 Jul, [facility] [place] [facility] [address] [id number] [place] [address]- 6076 05 Jul, 2011 [facility] [place] [facility] [address] [id number] [place] [address] 1606 27 Jun, 2011 [facility] [place] [facility] [address] [id number] [place] [address]- 4726 16 Jun, 2011 [facility] [place] [facility] [address] [id number] [place] [address]- 1756 Jun, [facility] [place] [facility] [address] [id number] [place] [address] 9846 May, [facility] [place] [facility] [address] [id number] [place] [address] 3146 Apr, [facility] [place] [facility] [address] [id number], [place] [address] 9020 Apr, [facility] [place] [facility] [address] [id number] [place] [address]- 3285 Mar, [facility] [place] [facility] [address] [id number] [place] [address]- 4955 Mar, [facility] [place] [facility] [address] [id number] [place] [address]- 7455 Mar, [facility] [place] [facility] [address] [id number] [place] [address] 7216 Feb, [facility] [place] [facility] [address] [id number] [place] [address]- 8155 Feb, [facility] [place] [facility] [address] [id number] [place] [address]- 6581 Feb, [facility] [place] [facility] [address] [id number] [place] [address]- 6086 Apr, [facility] [place] [facility] [address] [id number] [place] [address]- 7877 Apr, [facility] [place] [facility] [address] [id number] [place] [address] 1902 Mar, [facility] [place] [facility] [address] [id number] [place] [address]- 3186 Mar, [facility] [place] [facility] [address] [id number], [place] [address] 3043 Mar, [facility] [place] [facility] [address] [id number], [place] [address] 5117 Mar, [facility] [place] [facility] [address] [id number] [place] [address]- 8239 Mar, [facility] [place] [facility] [address] [id number] [place] [address]- 3055 Feb, [facility] [place] [facility] [address] [id number] [place] [address]- 9991 September, [facility] [place] [facility] [address] [facility] [id number], [place] [address] 13 Aug, 2009 [facility] [address] [facility] [id number], [place] [address] 2539 Apr, [facility] [address] [facility] [id number], [place] [address]- 9606 Apr, [facility] [id number], [place] [address] 7020 Mar, [facility] [address] [facility] [id number], [place] [address]- 4210 Mar, [facility] [id number] [place] [address]- 1853 Mar, [facility] [address] [id number], [place] [address] 1193 Feb, [facility] [id number] [place] [address]- 5880 Jan, [facility] [id number], [place] [address] Dec, [facility] [id number], [place] [address]- 0766 Nov, [facility] [id number], [place] [address]858 Oct, [facility] [id number], [place] [address] 3153 Apr, [facility] [address] [id number], [place] [address]- 1441 Apr, [facility] [id number], [place] [address]- 4074 Apr, [facility] [id number], [place] [address] 8494 Feb, IMMUNIZATIONS No Known Immunizations SOCIAL HISTORY Never Assessed REASON FOR VISIT Controlled Med Refill 11/08 PLAN OF CARE VITAL SIGNS MEDICATIONS Medication Instructions Dosage Frequency Start Date End Date Duration Status Inola 10-325 MG Orally every 6 hrs 1 tablet as needed 6h Oct, Nov, 28 days Active RESULTS No Results PROCEDURES [...]
[2017-12-04 18:04] LABS: INR 1.2 (0.8-1.4); PROTHROMBIN TIME PATIENT 15.3 SEC (12.2-14.7)
--- OUTSIDE RECORDS SUMMARY | 2017-12-04 18:04 | XMS REPORT ---
Author Author CEDRIC LAWLER [facility] e[employer] Address Unknown Phone Unavailable Care Team Providers Care Baster Hand Name Role Phone CEDRIC LAWLER CP Unavailable [...] Dosage Hydrocodone-Acetaminophen [facility] [id number] 10-325 MG Orally every 6 hrs July 19, 2014 take 1 tablet Results No Known Results Summary Purpose eClinical[employer] Submission
--- OUTSIDE RECORDS SUMMARY | 2017-12-04 18:04 | XMS REPORT ---
Author Author CEDRIC LAWLER Organization [facility] Address [address] [place] [address] Care Team Providers Care Channel Rebuilder Name Role Phone CEDRIC LAWLER Unavailable PROBLEMS Type Condition ICD9-CM Code URO40-VF Code Onset Dates Condition Status SNOMED Code Problem Nicotine dependence, uncomplicated, unspecified nicotine product type F17.200 Active 36845449 Problem Ab[address] CT lung screening R93.8 Active 128076509 Problem Mild persistent asthma without complication J45.30 Active 842240524 Problem Restless leg syndrome G25.81 Active 10214284 Problem Osteoarthritis of spine with radiculopathy, cervical region M47.22 Active 416599697 Problem RLS (restless legs syndrome) G25.81 Active 02656265 Problem Diabetes mellitus type 2, controlled E11.9 Active 152351422 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 [id number] Problem Hypertension, benign I10 Active 18301784 Problem Essential hypertension I10 Active 85705645 ALLERGIES No Information ENCOUNTERS Encounter Location Date Diagnosis [facility] [address] [address] September, Osteoarthritis of spine with radiculopathy, cervical region M47.22 ; Coughing R05 ; Chronic pruritus L29.9 and Breast cancer screening Z12.31 [facility] [id number] [place] [address] 70608- 2120 September, Diabetes mellitus type 2, controlled E11.9 [facility] [id number] [place] [address] 66044 -0162 Jul, Chronic cough R05 [facility] [id number] [place] [address] 20030- 9085 Jul, [facility] [address] [address]- 0041 Jul, Diabetes mellitus type 2, controlled E11.9 [facility] [address] [address] Jul, [facility] [id number] [place] [address] 989679- 8971 Jul, [facility] [id number] [place] [address] 06304- 4420 Jun, [facility] [id number] [place] [address] 930032- 1181 Jun, Diabetes mellitus type 2, controlled E11.9 [facility] [id number] [place] [address] 281812- 5982 Jun, [facility] [id number] [place] [address] 39218- 9106 May, [facility] [id number] [place] [address] 89284- 7827 May, Diabetes mellitus type 2, controlled E11.9 [facility] [address] [address]- 5[address] Apr, [facility] [id number] [place] [address] 94406- 9974 Apr, Pneumonia of right upper lobe due to infectious organism J18.1 [facility] [address] [address]- 5513 Mar, [facility] [address] [address]- 9059 Mar, [facility] [id number] [place] [address] 87808- 8594 08 Mar, 2017 [facility] [id number] [place] [address] 94230- 4165 03 Mar, 2017 Coughing R05 and SOB (shortness of breath) R06.02 [facility] [id number] [place] [address] 61477- 5038 Mar, Diabetes mellitus type 2, controlled E11.9 ; Coughing R05 and SOB (shortness of breath) R06.02 [facility] [id number] [place] [address] 37376- 8272 Feb, [facility] [id number] [place] [address] 24342- 5659 Feb, [facility] [address] 76165- 0859 Jan, Hypertension, benign I10 and RLS (restless legs syndrome) G25.81 [facility] [address] 72600- 5767 Jan, [facility] [id number] [place] [address] 16258- 6015 Dec, Pain in unspecified joint M25.50 and Mild persistent asthma without complication J45.30 [facility] [id number] [place] [address] 03041- 5142 Dec, [facility] [id number] [place] [address] 42109- [address] Dec, [address] lung screening R93.8 [facility] [id number] [place] [address] 49822- 5690 Dec, [facility] [id number] [place] [address] 12997- 8471 Nov, Screening for breast cancer Z12.31 [facility] [id number] [place] [address] 94176- 5757 Nov, [facility] [address] 14009- 9158 Nov, Essential hypertension I10 [facility] [id number] [place] [address] 33806- 5774 Nov, Essential hypertension I10 [facility] [address] 24027- 8464 Oct, Acute non-recurrent maxillary sinusitis J01.00 [facility] [address] [address]- 6749 Oct, [facility] [address] [address]- 3317 September, Acute non-recurrent maxillary sinusitis J01.00 [facility] [address] [address] September, Low back pain M54.5 [facility] [id number] [place] [address] 43309- 3645 September, [facility] [address] [place] [address] 97278- 9847 Aug, Acute non-recurrent maxillary sinusitis J01.00 [facility] [address] [address] Aug, Dental examination Z01.20 [facility] [address] [address]- 7569 Aug, [facility] [id number] [place] [address] 41100- 2604 Aug, [facility] [address] [address]- 8177 Aug, [facility] [id number] [place] [address] 26408- 4851 Aug, Acute sinusitis J01.90 [facility] [address] [address]- 1864 Jul, [facility] [id number] [address]- 2986 Jul, [facility] [address] [address]- 4799 Jul, [facility] [id number] [place] [address] 02090- 4504 Jul, [facility] [id number] [place] [address] 22659- 3403 Jul, Frequent urination R35.0 and Acute cystitis with hematuria N30.01 [facility] [id number] [place] [address] 26457- 0359 Jul, [facility] [address] 25543- 4535 Jun, [facility] [id number] [place] [address] 14747- 9398 Jun, Acute sinusitis J01.90 [facility] [id number] [place] [address] 03467- 6769 Jun, Diabetes mellitus type 2, controlled E11.9 ; Cough R05 ; Acute non-recurrent maxillary sinusitis J01.00 and [facility] (current) use of opiate analgesic Z79.891 [facility] [id number] [place] [address] 97060- 0734 May, [facility] [id number] [place] [address] 09162- 1578 May, [facility] [id number] [place] [address] 32753- 1043 May, [facility] [id number] [place] [address] 89900- 5005 Apr, [facility] [id number] [place] [address] 55589- 2595 Apr, [facility] [id number] [place] [address] 71987- 0861 Apr, [facility] [id number] [place] [address] 32615 -5196 Apr, Acute non-recurrent maxillary sinusitis J01.00 [facility] [id number] [place] [address] 26010- 7362 Apr, [facility] [id number] [place] [address] 85533- 9215 Feb, [facility] [id number] [place] [address] 71315- 9623 Feb, [facility] [id number] [place] [address] 99967- 0830 Feb, [facility] [id number] [place] [address] 78202- 8087 Feb, [facility] [id number] [place] [address] 21545- 0508 Feb, [facility] [id number] [place] [address] 11563- 7747 Feb, [facility] [id number] [place] [address] 80905- 6691 Jan, RLS (restless legs syndrome) G25.81 ; Osteoarthritis of spine with radiculopathy, cervical region M47.22 ; Lumbar neuritis M54.16 and Left sciatic nerve pain M54.32 [facility] [id number] [place] [address] 42290- 4309 Jan, [facility] [id number] [place] [address] 17953- 2799 Dec, [facility] [id number] [place] [address] 69476- 2792 Nov, [facility] [id number] [place] [address] 90729- 0675 Nov, [facility] [id number] [place] [address] 28605- 3263 Nov, [facility] [id number] [place] [address] 68568- 0452 Nov, Restless leg syndrome G25.81 and Controlled type 2 diabetes mellitus without complication, without long-term current use of insulin E11.9 [facility] [address] [address]- 2623 Nov, [facility] [id number] [place] [address] 57689- 8543 Oct, [facility] [id number] [place] [address] 72018- 5424 Oct, [facility] [id number] [place] [address] 01983- 0615 Oct, [facility] [id number] [place] [address] 80099- 4250 Oct, 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 lung screening R93.8 [facility] [id number] [place] [address] 86011- 2836 Oct, [facility] [id number] [place] [address] 35224- 5403 September, [facility] [id number] [place] [address] 93679- 9660 September, Physical exam, annual Z00.00 ; Nicotine dependence, uncomplicated, unspecified nicotine product type F17.200 ; Screening breast examination Z12.39 ; Restless leg syndrome G25.81 and Mild persistent asthma without complication J45.30 [facility] [address] [address]- 7641 September, [facility] [id number] [place] [address] 57616- 3798 September, [facility] [address] [address]- 2522 Aug, [facility] [id number] [place] [address] 66431- 7815 Jul, Dental examination Z01.20 and Dental caries K02.9 [facility] [address] [address]- 6606 Jul, [facility] [id number] [address]- 1991 Jul, Diabetes mellitus type 2, controlled E11.9 and Pain in unspecified joint M25.50 [facility] [id number] [place] [address] 73389- 0592 Jul, [facility] [id number] [place] [address] 36967- 3335 Jun, Dental examination Z01.20 [facility] [id number] [place] [address] 17804- 3571 May, [facility] [id number] [place] [address] 50201- 6455 May, [facility] [id number] [place] [address] 90163- 2911 Apr, [facility] [id number] [place] [address] 01160- 4390 Mar, [facility] [id number] [place] [address] 71945- 9328 Mar, Acute sinusitis J01.90 [facility] [id number] [place] [address] 63653- 1602 Feb, [facility] [id number] [place] [address] 30076- 1941 Jan, Flu vaccine need V04.81 [facility] [id number] [place] [address] 64202- 4254 Jan, [facility] [id number] [place] [address] 14736- 8879 Jan, Pain in joint, site unspecified 719.40 [facility] [id number] [place] [address] 58659- 7781 Dec, Pain in joint, site unspecified 719.40 [facility] [id number] [place] [address] 46690- 5621 Dec, [facility] [address] [address]- 9083 Dec, [facility] [id number] [place] [address] 39818- 0930 Dec, Sciatica 724.3 ; Restless legs syndrome [RLS] 333.94 and Encounter for smoking cessation counseling V65.42 [facility] [id number] [place] [address] 29078- 9212 Dec, Nicotine dependence 305.1 [facility] [id number] [place] [address] 382534- 3797 Nov, [facility] [id number] [place] [address] 13619- 2659 Oct, [facility] [id number] [place] [address] 79792- 5185 Oct, [facility] [id number] [place] [address] 02016- 0497 September, [facility] [address] [address]- 0237 Aug, [facility] [id number] [place] [address] 30670- 7694 Aug, [facility] [address] [address]- 9583 Jul, [facility] [address] [address]- 3424 Jul, [facility] [address] [address]- 5219 Jul, [facility] [address] [address]- 8906 Jun, [facility] [address] [address]- 8766 Jun, [facility] [id number] [place] [address] [place] [address]- 6916 Jun, [facility] [address] [id number] [place] [address]- 3979 Jun, [facility] [place] [facility] [address] [id number] [place] [address]- 8249 May, [facility] [place] [facility] [address] [id number] [place] [address]- 6169 May, [facility] [place] [facility] [address] [id number] [place] [address]- 2509 May, [facility] [place] [facility] [address] [id number] [place] [address]- 2127 May, [facility] [place] [facility] [address] [id number] [place] [address]- 8666 May, [facility] [address] [id number] [place] [address]- 9336 May, [facility] [place] [facility] [address] [id number] [place] [address]- 5287 May, [facility] [place] [facility] [address] [id number] [place] [address]- 4317 Apr, [facility] [place] [facility] [address] [id number] [place] [address]- 5894 Apr, [facility] [place] [facility] [address] [id number] [place] [address]- 9736 Apr, [facility] [place] [facility] [address] [id number] [place] [address]- 5679 Apr, [facility] [place] [facility] [address] [id number] [place] [address]- 2836 Apr, [facility] [place] [facility] [address] [id number] [place] [address]- 8685 Apr, [facility] [place] [facility] [address] [id number] [place] [address]- 0822 Apr, [facility] [place] [facility] [address] [id number] [place] [address]- 9014 Apr, [facility] [place] [facility] [address] [id number] [place] [address]- 6575 Apr, [facility] [place] [facility] [address] [id number] [place] [address]- 7106 Apr, [facility] [place] [facility] [address] [id number] [place] [address]- 3328 Mar, [facility] [place] [facility] [address] [id number] [place] [address]- 6179 Mar, [facility] [place] [facility] [address] [id number] [place] [address]- 5354 Mar, [facility] [place] [facility] [address] [id number] [place] [address]- 5261 Mar, [facility] [place] [facility] [address] [id number] [place] [address]- 6510 Mar, [facility] [place] [facility] [address] [id number] [place] [address]- 5572 Mar, [facility] [place] [facility] [address] [id number] [place] [address]- 9388 Feb, [facility] [place] [facility] [address] [id number] [place] [address]- 3221 15 Feb, 2014 [facility] [place] [facility] [address] [id number] [place] [address]- 1707 Feb, [facility] [place] [facility] [address] [id number] [place] [address]- 0567 Feb, [facility] [place] [facility] [address] [id number] [place] [address]- 1591 Feb, [facility] [place] [facility] [address] [id number] [place] [address]- 8105 Feb, [facility] [place] [facility] [address] [id number] [place] [address]- 8191 Jan, [facility] [place] [facility] [address] [id number] [place] [address]- 1841 Jan, [facility] [place] [facility] [address] [id number] [place] [address]- 7173 Jan, [facility] [place] [facility] [address] [id number] [place] [address]- 8624 Jan, [facility] [place] [facility] [address] [id number] [place] [address]- 3848 Dec, [facility] [place] [facility] [address] [id number] [place] [address]- 1492 Dec, [facility] [place] [facility] [address] [id number] [place] [address]- 4327 Dec, [facility] [place] [facility] [address] [id number] [place] [address]- 8376 Dec, [facility] [place] [facility] [address] [id number] [place] [address]- 8120 Dec, [facility] [place] [facility] [address] [id number] [place] [address]- 7735 Nov, [facility] [place] [facility] [address] [id number] [place] [address]- 2384 Nov, [facility] [place] [facility] [address] [id number] [place] [address]- 8726 Nov, [facility] [place] [facility] [address] [id number] [place] [address]- 1704 Nov, [facility] [place] [facility] [address] [id number] [place] [address]- 1224 Nov, [facility] [place] [facility] [address] [id number] [place] [address]- 2474 Nov, [facility] [place] [facility] [address] [id number] [place] [address]- 9817 16 Oct, 2013 [facility] [place] [facility] [address] [id number] [place] [address]- 9441 16 Oct, 2013 [facility] [address] [id number] [place] [address]- 8125 September, [facility] [place] [facility] [address] [id number] [place] [address]- 3658 September, [facility] [address] [id number] [place] [address]- 3350 September, [facility] [place] [facility] [address] [id number] [place] [address]- 7450 September, [facility] [address] [id number] [place] [address]- 0442 Aug, [facility] [place] [facility] [address] [id number] [place] [address]- 1613 Aug, [facility] [place] [facility] [address] [id number] [place] [address]- 3657 Jul, [facility] [place] [facility] [address] [id number] [place] [address]- 0522 17 Jul, 2013 [facility] [place] [facility] [address] [id number] [place] [address]- 0037 Jul, [facility] [address] [id number] [place] [address]- 0158 Jul, [facility] [place] [facility] [address] [id number] [place] [address]- 2605 Jun, [facility] [place] [facility] [address] [id number] [place] [address]- 1143 Jun, [facility] [place] [facility] [address] [id number] [place] [address]- 8150 Jun, [facility] [place] [facility] [address] [id number] [place] [address]- 3656 Jun, [facility] [place] [facility] [address] [id number] [place] [address]- 9619 May, [facility] [place] [facility] [address] [id number] [place] [address]- 9228 May, [facility] [place] [facility] [address] [id number] [place] [address]- 2705 May, [facility] [place] [facility] [address] [id number] [place] [address]- 6879 May, [facility] [place] [facility] [address] [id number] [place] [address]- 5078 Apr, [facility] [place] [facility] [address] [id number] [place] [address]- 5035 Apr, [facility] [place] [facility] [address] [id number] [place] [address]- 6873 Apr, [facility] [place] [facility] [address] [id number] [place] [address]- 4202 Mar, [facility] [place] [facility] [address] [id number] [place] [address]- 4146 Mar, [facility] [place] [facility] [address] [id number] [place] [address]- 1432 Mar, [facility] [place] [facility] [address] [id number] [place] [address]- 6692 Mar, [facility] [place] [facility] [address] [id number] [place] [address]- 4237 Feb, [facility] [place] [facility] [address] [id number] [address] Feb, [facility] [place] [facility] [address] [id number] [place] [address] Feb, [facility] [place] [facility] [address] [id number] [place] [address] Feb, [facility] [place] [facility] [address] [id number] [place] [address] 17 Feb, 2013 [facility] [place] [facility] [address] [id number] [place] [address] 17 Feb, 2013 [facility] [address] [id number] [place] [address] Feb, [facility] [place] [facility] [address] [id number] [place] [address] Feb, [facility] [place] [facility] [address] [id number] [place] [address] Jan, [facility] [place] [facility] [address] [id number] [place] [address] Jan, [facility] [place] [facility] [address] [id number] [place] [address] Jan, [facility] [place] [facility] [address] [id number] [place] [address] Dec, [facility] [place] [facility] [address] [id number] [place] [address] Dec, [facility] [place] [facility] [address] [id number] [place] [address] Nov, [facility] [place] [facility] [address] [id number] [place] [address] Nov, [facility] [place] [facility] [address] [id number] [place] [address] Nov, [facility] [place] [facility] [address] [id number] [place] [address] Nov, [facility] [place] [facility] [address] [id number] [place] [address] Oct, [facility] [place] [facility] [address] [id number] [place] [address] Oct, [facility] [place] [facility] [address] [id number] [place] [address] Oct, [facility] [place] [facility] [address] [id number] [place] [address] September, [facility] [place] [facility] [address] [id number] [place] [address] September, [facility] [address] [id number] [place] [address] September, [facility] [address] [id number] [place] [address] September, [facility] [address] [id number] [place] [address] Aug, [facility] [address] [id number] [place] [address] Aug, [facility] [address] [id number] [place] [address] Jul, [facility] [address] [id number] [place] [address] Jul, [facility] [address] [id number] [place] [address] Jul, [facility] [address] [id number] [place] [address] Jul, [facility] [address] [id number] [place] [address] Jul, [facility] [address] [id number] [place] [address] Jun, [facility] [address] [id number] [place] [address] Jun, [facility] [place] [facility] [address] [id number] [place] [address] Jun, [facility] [place] [facility] [address] [id number] [place] [address] May, [facility] [place] [facility] [address] [id number] [place] [address] May, [facility] [address] [id number] [place] [address] May, [facility] [place] [facility] [address] [id number] [place] [address] Apr, [facility] [place] [facility] [address] [id number] [place] [address] Apr, [facility] [place] [facility] [address] [id number] [place] [address] Apr, [facility] [place] [facility] [address] [id number] [place] [address] Apr, [facility] [place] [facility] [address] [id number] [place] [address] Apr, [facility] [place] [facility] [address] [id number] [place] [address] Apr, [facility] [place] [facility] [address] [id number] [place] [address] Apr, [facility] [place] [facility] [address] [id number] [place] [address] Apr, [facility] [place] [facility] [address] [id number] [place] [address] Mar, [facility] [place] [facility] [address] [id number] [place] [address] Mar, [facility] [place] [facility] [address] [id number] [place] [address] Mar, [facility] [place] [facility] [address] [id number] [place] [address] Mar, [facility] [place] [facility] [address] [id number] [place] [address] Mar, [facility] [place] [facility] [address] [id number] [place] [address] Mar, [facility] [place] [facility] [address] [id number] [place] [address] Mar, [facility] [place] [facility] [address] [id number] [place] [address] Mar, [facility] [place] [facility] [address] [id number] [place] [address] Mar, [facility] [place] [facility] [address] [id number] [place] [address] Mar, [facility] [place] [facility] [address] [id number] [place] [address] Feb, [facility] [place] [facility] [address] [id number] [place] [address] Feb, [facility] [place] [facility] [address] [id number] [place] [address] Feb, [facility] [place] [facility] [address] [id number] [place] [address] Jan, [facility] [place] [facility] [address] [id number] [place] [address] Jan, [facility] [place] [facility] [address] [id number] [place] [address] Jan, [facility] [place] [facility] [address] [id number] [place] [address] Dec, [facility] [place] [facility] [address] [id number] [place] [address] 15 Dec, 2011 [facility] [place] [facility] [address] [id number] [place] [address] Dec, [facility] [place] [facility] [address] [id number] [place] [address] Dec, [facility] [place] [facility] [address] [id number] [place] [address] Dec, [facility] [place] [facility] [address] [id number] [place] [address] Nov, [facility] [place] [facility] [address] [id number] [place] [address] Nov, [facility] [address] [id number] [place] [address] Oct, [facility] [place] [facility] [address] [id number] [place] [address] September, [facility] [place] [facility] [address] [id number] [place] [address] September, [facility] [place] [facility] [address] [id number] [place] [address] September, [facility] [place] [facility] [address] [id number] [place] [address] September, [facility] [place] [facility] [address] [id number] [place] [address] September, [facility] [place] [facility] [address] [id number] [place] [address] Aug, [facility] [place] [facility] [address] [id number] [place] [address] 16 Jul, 2011 [facility] [place] [facility] [address] [id number] [place] [address] 15 Jul, 2011 [facility] [place] [facility] [address] [id number] [place] [address] 14 Jul, 2011 [facility] [place] [facility] [address] [id number] [place] [address] 14 Jul, 2011 [facility] [place] [facility] [address] [id number] [place] [address] Jul, [facility] [place] [facility] [address] [id number] [place] [address] Jul, [facility] [place] [facility] [address] [id number] [place] [address]36 08 Jul, 2011 [facility] [place] [facility] [address] [id number] [place] [address] 05 Jul, 2011 [facility] [place] [facility] [address] [id number] [place] [address]20 27 Jun, 2011 [facility] [place] [facility] [address] [id number] [place] [address] 16 Jun, 2011 [facility] [place] [facility] [address] [id number] [place] [address] 10 Jun, 2011 [facility] [place] [facility] [address] [id number] [place] [address] May, [facility] [place] [facility] [address] [id number] [place] [address] Apr, [facility] [place] [facility] [address] [id number] [place] [address] Apr, [facility] [place] [facility] [address] [id number] [place] [address] Mar, [facility] [place] [facility] [address] [id number] [place] [address] Mar, [facility] [place] [facility] [address] [id number] [place] [address] Mar, [facility] [place] [facility] [address] [id number] [place] [address] Feb, [facility] [place] [facility] [address] [id number] [place] [address] Feb, [facility] [place] [facility] [address] [id number] [place] [address] 269[address] Feb, [facility] [place] [facility] [address] [id number] [place] [address] 8667 Apr, [facility] [place] [facility] [address] [id number] [place] [address] Apr, [facility] [place] [facility] [address] [id number] [place] [address] 3084 Mar, [facility] [place] [facility] [address] [id number] [place] [address] 9377 Mar, [facility] [place] [facility] [address] [id number] [place] [address] Mar, [facility] [place] [facility] [address] [id number] [place] [address] 69[address] Mar, [facility] [address] [id number] [place] [address] Mar, [facility] [place] [facility] [address] [id number] [place] [address] 58[address] Feb, [facility] [address] [id number] [place] [address] September, [facility] [address] [id number] [place] [address] Aug, [facility] [address] [id number] [place] [address] 2945 Apr, [facility] [address] [id number] [place] [address] 15 Apr, 2009 [facility] [address] [id number] [place] [address] 47[address] Mar, [facility] [place] [facility] [address] [id number] [place] [address]266 Mar, [facility] [place] [facility] [address] [id number] [place] [address] Mar, [facility] [place] [facility] [address] [id number] [place] [address] Feb, [facility] [place] [facility] [address] [id number] [place] [address] Jan, [facility] [place] [facility] [address] [id number] [place] [address] Dec, [facility] [place] [facility] [address] [id number] [place] [address]- [address] 15 Nov, 2008 [facility] [place] [facility] [address] [id number] [place] [address] Oct, [facility] [address] [facility] [id number] [place] [address] Apr, [facility] [address] [facility] [id number] [place] [address] 2546 Apr, [facility] [address] [facility] [id number] [place] [address]- [address] Apr, [facility] [address] [facility] [id number] [place] [address] 2546 Feb, IMMUNIZATIONS No Known Immunizations SOCIAL HISTORY Never Assessed REASON FOR VISIT request return call PLAN OF CARE VITAL SIGNS [...]
[2017-12-04] MEDS ORDERED: fentaNYL INJECTION 100 MCG/2 ML AMP ONE ×2 (18:08→20:41)
[2017-12-04] MEDS ORDERED: MIDAZOLAM 5 MG/5 ML (VERSED) VIAL ONE (18:08)
[2017-12-04 18:12] LABS: ALANINE AMINOTRANSFERASE 47 U/L (0-55); ALKALINE PHOSPHATASE 79 U/L (40-136); BILIRUBIN,TOTAL 0.5 MG/DL (0.1-1.0); BUN/CREATININE RATIO 15; CALCIUM 9.1 MG/DL (8.5-10.1); CARBON DIOXIDE 25 MMOL/L (21-32); CHLORIDE 105 MMOL/L (98-107); CREATININE SERUM 0.74 MG/DL (0.60-1.30); GFR ESTIMATED > 60; GLUCOSE 251 MG/DL (70-105); MAGNESIUM 1.9 MG/DL (1.8-2.4); POTASSIUM 3.7 MMOL/L (3.6-5.0); SODIUM 136 MMOL/L (135-145); TOTAL PROTEIN 6.3 GM/DL (6.4-8.2)
[2017-12-04] MEDS ORDERED: ONDANSETRON 4 MG/2 ML (SDV) Z0FRAN IVP ONE (18:15)
[2017-12-04 18:18] LABS: MYOGLOBIN SERUM 37.2 NG/ML (10.0-92.0)
[2017-12-04] MEDS ORDERED: EPTIFIBATIDE BOLUS 20 ML IV ONE (18:23)
[2017-12-04] MEDS ORDERED: HEParin 1000 UNIT/ML (10ML VIAL) FOR BOLUS ONE (18:23)
[2017-12-04] MEDS ORDERED: ATROPINE INJECTION 1 MG/10 ML SYR (ABBOTT) ONE (18:34)
[2017-12-04] MEDS ORDERED: EPTIFIBATIDE DRIP 100 ML IV ONE (18:44)
[2017-12-04] MEDS ORDERED: meTOprolol 5 MG/5 ML (LOPRESSOR) VIAL ONE (18:48)
[2017-12-04] MEDS ORDERED: FUROSEMIDE 40 MG/4 ML INJ (LASIX) ONE (19:07)
--- NOTE | 2017-12-04 19:25 | History & Physicial-Cardiolgy ---
HPI-Cardiology Cardiology Consultation: Date of Consultation 12/04/17 Date of Admission Attending Physician Nohemy Romero MD Admitting Physician Evens Thompson MD Consulting Physician Nohemy ROMERO MD HPI: Time Seen by Provider: 06:20 Chief Complaint: Chest pain This is a 62-year-old lady with history of active smoking, hypertension, diabetes whose chest pain started 3-1/2 hours before coming to the ER. It was not severe. Therefore she took a nap and woke up 2 hours later with severe chest pain. Substernal with no significant radiation. Intensity 10/10. She presented to the ER one and a half hour later. EKG demonstrated inferior ST elevation CT. She went into ventricular fibrillation in the ER and was shocked. Review of Systems-Cardiology Review of Systems Constitutional: As described under HPI; No As described under HPI, No no symptoms reported, No chills, No fever, No lightheadedness Eyes: No As described under HPI, No no symptoms reported, No blindness, No blurred vision, No contact lenses, No drainage, No decreased acuity, No foreign body sensation, No pain, No vision change Ears/Nose/Throat: No As described under HPI, No no symptoms reported, No chronic hearing loss, No ear discharge, No ear pain, No nasal drainage, No ulcerations Respiratory: No no symptoms reported; As described under HPI; No As described under HPI, No cough, No orthopnea, No shortness of breath, No SOB with excertion Cardiovascular: No no symptoms reported; As described under HPI; No As described under HPI; chest pain; No edema, No irregular heart rate, No lightheadedness, No palpitations Gastrointestinal: No no symptoms reported, No As described under HPI, No abdomen distended, No abdominal pain, No blood streaked bowels, No constipation , No diarrhea, No nausea, No vomiting, No stool coloration changes Genitourinary: No As described under HPI, No burning, No dysuria, No discharge , No frequency, No flank pain, No hematuria, No urgency : Yes : No Musculoskeletal: back pain Skin: No no symptoms reported, No As described under HPI, No change in color, No change in hair/nails, No dryness, No lesions, No lumps, No rash, No other, No skin related problems, No ulcerations, No rash on exposed areas, No ulcerations on exposed areas Psychiatric/Neurological: No anxiety, No depression, No seizure, No focal weakness, No syncope Hematologic: No no symptoms reported, No As described under HPI, No anemia, No blood clots, No easy bleeding, No easy bruising, No swollen glands, No other, No bleeding abnormalities PFR-[id number]-Fnvkcd Hx Patient Social History Alcohol Use: Denies Use Recreational Drug Use: No Smoking Status: Current Everyday Smoker Type Used: Cigarettes Past Medical History PMH As described under Assessment. Allergies and Home Medications Allergies Coded Allergies: latex (Unverified Allergy, Mild, RASH, 08/24/08) codeine (Verified Adverse Reaction, Mild, N/V, 08/30/08) Home Medications Atenolol 100 Mg Tablet, 100 MG PO DAILY, (Reported) Chlorzoxazone 500 Mg Tablet, 500 MG PO UD, (Reported) Hydrocodone/Acetaminophen 1 Each Tablet, Unknown Dose PO PRN PRN for PAIN, ( Reported) Lansoprazole 15 Mg Capsule.dr, Unknown Dose PO DAILY, (Reported) Methylprednisolone 4 Mg Tab.ds.pk, 4 MG PO UD Prescribed by: MANOLO ALONZO on 07/30/16 1412 Patient Home Medication List Home Medication List Reviewed: Yes Physical Exam-Cardiology Physical Exam Vital Signs/I&O Capillary Refill : Constitutional: appears stated age, apparent distress, well-developed, well- nourished HEENT: PERRL; No normal ENT inspection, No TMs normal, No pharynx normal, No scleral icterus (R), No scleral icterus (L), No pale conjunctivae (R), No pale conjunctivae (L), No photophobia, No TM abnormal (R), No TM abnormal (L), No pharyngeal erythema, No tonsillar exudate, No other, No discharge, No EOMI; hearing is well preserved; No hard of hearing; oral hygience is good; No ulceration, No xanthelasmas are seen Neck: No non-tender, No full range of motion, No supple, No normal inspection, No carotid bruit, No limited range of motion, No lymphadenopathy (R), No lymphadenopathy (L), No tender lateral, No tender midline, No thyromegaly, No other; carotid pulses are 2 + bilaterally; No with good upstrokes Respiratory: No accessory muscle use, No respiratory distress, No chest tender , No chest expansion is symmetric; chest is bilaterally symmetric; No lungs clear to percussion; lungs clear to auscultation; No crackles, No rhonchi, No rales, No stridor, No wheezing, No pleural rub, No other Cardiovascular: regular rate-rhythm; No irregularly irregular, No extra beats, No parasternal heave is noted, No JVD, No edema, No bradycardia, No tachycardia , No point of maximal impulse, No cardiac thrills are palpable; S1 and S2; No gallop/S3, No gallop/S4, No diastolic murmur, No systolic murmur, No friction rub, No click, No other Gastrointestinal: No tender, No soft, No round, No distended, No pulsatile mass , No organomegaly, No guarding, No rebound, No tenderness, No hernia, No mass, No audible bowel sounds, No abnormal bowel sounds, No abdominal bruits, No spleenomegaly, No other Rectal: deferred Extremities: No normal range of motion, No non-tender, No normal inspection, No pedal edema, No calf tenderness, No normal capillary refill, No pelvis stable , No calf tenderness, No inflammation, No pedal edema, No slow capillary refill , No swelling, No other, No abrasion, No clubbing, No cyanosis, No ecchymosis, No laceration, No no lower extremity edema bilateral, No significant edema, No tenderness, No wound Neurologic/Psychiatric: no motor/sensory deficits, alert, normal mood/affect, oriented x 3, power is 5/5 both on sides Skin: No normal color, No warm/dry, No cyanosis, No cool, No diaphoresis, No damp, No ecchymosis, No jaundice, No mottled, No pallor, No rash, No tattoos/ piercings, No ulcerations, No rash on exposed areas, No ulcerations on exposed areas, No other Data Review Labs Laboratory Tests 12/04/17 17:35: White Blood Count 7.7, Red Blood Count 5.04, Hemoglobin 15.2, Hematocrit 46, Mean Corpuscular Volume 90, Mean Corpuscular Hemoglobin 30, Mean Corpuscular Hemoglobin Concent 33, Red Cell Distribution Width 14.0, Platelet Count 142, Mean Platelet Volume 10.3, Neutrophils (%) (Auto) 44, Lymphocytes (%) (Auto) 44 , Monocytes (%) (Auto) 9, Eosinophils (%) (Auto) 3, Basophils (%) (Auto) 1, Neutrophils # (Auto) 3.4, Lymphocytes # (Auto) 3.4, Monocytes # (Auto) 0.7, Eosinophils # (Auto) 0.2, Basophils # (Auto) 0.0, Prothrombin Time 15.3H, INR Comment 1.2, Activated Partial Thromboplast Time 34, Sodium Level 136, Potassium Level 3.7, Chloride Level 105, Carbon Dioxide Level 25, Anion Gap 6, Blood Urea Nitrogen 11, Creatinine 0.74, Estimat Glomerular Filtration Rate > 60 , BUN/Creatinine Ratio 15, Glucose Level 251H, Calcium Level 9.1, Magnesium Level 1.9, Total Bilirubin 0.5, Aspartate Amino Transf (AST/SGOT) 51H, Alanine Aminotransferase (ALT/SGPT) 47, Alkaline Phosphatase 79, Myoglobin 37.2, Troponin I < 0.30, B-Type Natriuretic Peptide 26.3, Total Protein 6.3L, Albumin 4.0 ECG Impression ECG Initial ECG Rhythm: Normal Sinus Initial ECG Impression: Acute CT A/P-Cardiology Assessment/Admission Diagnosis Acute inferior wall myocardial infarction, Ventricular fibrillation cardiac arrest, status post defibrillation, Active smoking, Diabetes, Hypertension. Admission Status: Inpatient Order (span 2 midnights) Reason for Inpatient Admission: Acute inferior wall CT Plan Acute inferior wall myocardial infarction, and aspirin bolus, Brilinta bolus, 5000 international units of heparin. Emergent coronary angiography is recommended with intent for primary PCI. Ventricular fibrillation cardiac arrest, status post defibrillation, beta blockers. Active smoking, strongly recommended to quit smoking. Diabetes, Hypertension, will start beta blockers and HEMA inhibitor. Patient will be admitted to the ICU. Nohemy ROMERO MD Dec 04, 2017 19:25
[2017-12-04] MEDS ORDERED: PATIENT MAY USE OWN MEDS, ALL PO SCH (19:30)
--- NOTE | 2017-12-04 19:44 | Coronary Angiography & PCI ---
Coronary Angiography & PCI DATE OF PROCEDURE: 12/04/17 INDICATION: Acute inferior ST elevation AK, ventricular fibrillations status post shock. PREOPERATIVE DIAGNOSIS: Acute inferior ST elevation AK, ventricular fibrillations status post shock. POSTOPERATIVE DIAGNOSIS: Primary PCI to proximal RCA with drug-eluting stent. HISTORY: 62-year-old lady with history of active smoking, diabetes, hypertension presented with acute inferior wall myocardial infarction, cardiac arrest due to ventricular fibrillation status post defibrillation, given bolus aspirin, bolus Brilinta and heparin 5000 international units. Therefore, the patient was taken for emergent coronary angiography. PROCEDURES PERFORMED: 1.Coronary angiography. 2.Left heart catheterization. 3.PCI to the proximal RCA with drug-eluting stent. 4. Aortic arch angiography. COMPLICATIONS: None. SPECIMENS: None. ESTIMATED BLOOD LOSS: 10 mL ANESTHESIA: Conscious sedation ANTICOAGULATION: IV heparin, IV Integrilin. CONTRAST: 128 mL. FLUOROSCOPY: 7.2 minutes. FLOUROSCOPY DOSE: 677 mgy. PROCEDURE DETAILS: The patient is a 62 female and was brought to the collaborating supervising physician after informed consent was taken. All the risks and complications were explained in detail; this included the risk of bleeding, vascular damage, stroke , AK and even . The patient was draped and prepped in the usual sterile fashion. Access was gained in the right femoral artery with a 6 Maori sheath. Right coronary angiography was done with the JR4 guide. Left coronary angiography was done with a JR4 catheter. Left heart catheterization and aortic arch angiogram was done with a pigtail catheter. FINDINGS: 1.Left main: Patent. 2.LAD: Mild diffuse disease. 3.Left circumflex artery: Mild diffuse disease. 4.RCA: Total occlusion of the proximal segment. 5.Left heart catheterization: LV pressure 149/15 mmHg. LVEDP 26 mmHg. Aortic pressure 153/95 mmHg. Normal LV function with inferior akinesis. No gradient across the aortic valve. 6. Aortic arch angiogram: No evidence of aneurysm or dissection. Patent proximal segments of the great arteries including brachiocephalic artery, subclavian artery, left common carotid artery. RECOMMENDATIONS: Primary PCI to proximal RCA is recommended. INTERVENTION DETAILS: JR4 guide catheter, whisper wire, IV heparin and Integrilin for anticoagulation. ACT was done once which was 241 seconds. The lesion was crossed with the whisper wire and predilatation was done with emerge 2.0 X12 balloon. Door to balloon time was 54 minutes. Heavy clot burden was noted therefore double bolus of Integrilin was given. Manual thrombectomy was done with a Pronto catheter. We then placed the signs Alpine 3.0X 18 mm balloon at 14 bev. Postdilatation was done twice with the NC Quantum 3.5X 12 balloon at 14 and 16 bev respectively. FRANTZ-3 flow with no residual stenosis. Significant chest pain resolution. Resolution of ST segments were also noted. Femoral artery was closed with a vascular device. Patient tolerated procedure well and was sent to the ICU with stable hemodynamics. CONCLUSIONS: 1. Primary PCI to occluded RCA with a drug-eluting stent. 2. Aspirin, Brilinta, beta viv, HEMA inhibitor, high-dose statin. 3. Continue IV Integrilin overnight. 4. Smoking cessation was strongly recommended. 5. ICU monitoring. Nader Mcclain MD, FACP, FACC, [facility] Interventional Cardiology Nohemy MCCLAIN MD Dec 04, 2017 19:44
[2017-12-04] MEDS ORDERED: CATHETER FLUSH 10 ML SYR IV PRN (19:45)
[2017-12-04] MEDS: fentaNYL INJECTION 100 MCG/2 ML AMP IV PRN ×4 (20:47→23:41)
[2017-12-04] MEDS: meTOprolol TARTRATE 50 MG (LOPRESSOR) TAB PO SCH (21:36)
[2017-12-04] MEDS: ATORVASTATIN 80 MG (LIPITOR) TABLET PO SCH (21:36)
[2017-12-04] MEDS: TICAGRELOR 90 MG TABLET (BRILINTA) PO SCH (21:36)
[2017-12-04] MEDS: inSUlin ASPART (NovoLOG) 1 UNIT/0.01 ML (CHARGE PER UNIT) SC SCH (21:37)
[2017-12-04] MEDS: NS IV 1000 ML 1,000 ML IV SCH (21:37)
[2017-12-05] VITALS (37 sets, daily range): BP systolic 113–172; BP diastolic 74–117
[2017-12-05] MEDS: fentaNYL INJECTION 100 MCG/2 ML AMP IV PRN ×4 (00:44→03:30)
[2017-12-05 03:33] LABS: BASOPHILS % (AUTO) 0 % (0-10); EOSINOPHILS # (AUTO) 0.1 10^3/uL (0.0-0.3); EOSINOPHILS % (AUTO) 1 % (0-10); HEMATOCRIT 46 % (35-52); HEMOGLOBIN 15.7 G/DL (11.5-16.0); LYMPHOCYTES # (AUTO) 2.1 X 10^3 (1.0-4.0); LYMPHOCYTES % (AUTO) 18 % (12-44); MEAN CORPUSCULAR HEMOGLOBIN 31 PG (25-34); MEAN CORPUSCULAR HGB CONC 35 G/DL (32-36); MEAN CORPUSCULAR VOLUME 90 FL (80-99); MEAN PLATELET VOLUME 10.4 FL (7.4-10.4); MONOCYTES % (AUTO) 8 % (0-12); NEUTROPHILS # (AUTO) 8.6 X 10^3 (1.8-7.8); NEUTROPHILS % (AUTO) 73 % (42-75); PLATELET COUNT 154 10^3/uL (130-400); RED BLOOD COUNT 5.06 10^6/uL (4.35-5.85); WHITE BLOOD COUNT 11.9 10^3/uL (4.3-11.0)
[2017-12-05 03:47] LABS: BUN/CREATININE RATIO 15; CARBON DIOXIDE 22 MMOL/L (21-32); CHLORIDE 104 MMOL/L (98-107); CHOLESTEROL 197 MG/DL (< 200); CREATININE SERUM 0.71 MG/DL (0.60-1.30); GFR ESTIMATED > 60; GLUCOSE 191 MG/DL (70-105); HDL CHOLESTEROL 32 MG/DL (40-60); MAGNESIUM 1.9 MG/DL (1.8-2.4); PHOSPHORUS 3.7 MG/DL (2.3-4.7); POTASSIUM 4.1 MMOL/L (3.6-5.0); SODIUM 136 MMOL/L (135-145); TRIGLYCERIDES 211 MG/DL (<150); VLDL CHOLESTEROL 42 MG/DL (5-40)
[2017-12-05] MEDS ORDERED: morphine INJ 4 MG/ML 1 ML (VIAL/SYRINGE) ONE (03:59)
[2017-12-05] MEDS: morphine INJ 4 MG/ML 1 ML (VIAL/SYRINGE) IVP PRN ×3 (04:03→09:38)
[2017-12-05] MEDS: NS IV 1000 ML 1,000 ML IV SCH (04:03)
[2017-12-05] MEDS ORDERED: POTASSIUM CL 10MEQ/50ML IVPB 50 ML IV SCH (06:00)
[2017-12-05] MEDS ORDERED: KCL 20 MEQ TAB (K-DUR) PO SCH (06:00)
[2017-12-05] MEDS ORDERED: MAGNESIUM 1 GM/100 ML IVPB 100 ML IV SCH (06:00)
[2017-12-05] MEDS: inSUlin ASPART (NovoLOG) 1 UNIT/0.01 ML (CHARGE PER UNIT) SC SCH ×4 (06:13→21:04)
--- NOTE | 2017-12-05 06:46 | Pulmonary Consultation ---
History of Present Illness History of Present Illness Date of Consultation 12/05/17 06:40 Time Seen by Provider: 06:41 Date of Admission History of Present Illness 62yo with hx of tobacco use, HTN, DM presented to ED secondary to 10 nonradiating CP worsening over the last 3 hrs prior to admission. EKG showed inferior STEMI and pt went Vfib and was shocked. PT is now s/p cardiac cath. Allergies and Home Medications Allergies Coded Allergies: latex (Unverified Allergy, Mild, RASH, 08/24/08) codeine (Verified Adverse Reaction, Mild, N/V, 08/30/08) Home Medications Aspirin 81 Mg Tablet.dr, 81 MG PO DAILY Prescribed by: MANUEL RASMUSSEN on 12/06/17958 Atorvastatin Calcium 80 Mg Tablet, 80 MG PO HS Prescribed by: MANUEL RASMUSSEN on 12/06/17958 Chlorpheniramine Maleate 4 Mg Tablet, 4 MG PO DAILY, (Reported) Fluticasone/Salmeterol 1 Each Blst.w.dev, 1 EACH IH HS, (Reported) Hydrocodone/Acetaminophen 1 Each Tablet, 1 EACH PO Q6H PRN for PAIN-MODERATE, ( Reported) Lisinopril 20 Mg Tablet, 20 MG PO DAILY@0900 Prescribed by: MANUEL RASMUSSEN on 12/06/17958 Metoprolol Tartrate 50 Mg Tablet, 75 MG PO BID Prescribed by: MANUEL RASMUSSEN on 12/06/17958 Nabumetone 500 Mg Tablet, 500 MG PO BID, (Reported) Pantoprazole Sodium 40 Mg Tablet.dr, 40 MG PO HS, (Reported) Pramipexole Di-HCl 0.5 Mg Tablet, 0.5 MG PO TID PRN for RESTLESSNESS, (Reported) Ticagrelor 90 Mg Tablet, 90 MG PO BID Prescribed by: MANUEL RASMUSSEN on 12/06/17958 Tizanidine HCl 4 Mg Tablet, 4 MG PO TID PRN for MUSCLE SPASMS, (Reported) Past Oiwuvxy-Qdpxrk-Xyvycm Hx Patient Social History Alcohol Use: Denies Use Recreational Drug Use: No Smoking Status: Current Everyday Smoker Type Used: Cigarettes Recent Foreign Travel: No Contact w/Someone Who Travel: No Recent Infectious Disease Expo: No Recent Hopitalizations: Yes (ER VISIT) Physical Abuse: No Sexual Abuse: No Seasonal Allergies Seasonal Allergies: Yes Past Medical History Surgeries: Yes (THROAT; HYST/BSO) Gallbladder, Hysterectomy, Oophorectomy Respiratory: No Cardiac: Yes Hypertension Neurological: No Reproductive Disorders: No Sexually Transmitted Disease: No Genitourinary: No Gastrointestinal: No Musculoskeletal: Yes (FIBROMYALGIA; RESTLESS LEG SYNDROME) Fibromyalgia, Chronic Back Pain Endocrine: Yes (DIET CONTROLLED DIABETES) Diabetes, Non-Insulin dep Cancer: No Psychosocial: No Nursing Suicide Risk Score: 0 Integumentary: No Blood Disorders: No Review of Systems Time Seen by Provider: 13:21 Constitutional: Weakness, Malaise Eyes: No: Pain, Vision change, Conjunctivae inflammation, Eyelid inflammation, Other, Redness ENT: Nose congestion; No: Ear pain, Ear discharge, Nose pain, Nose discharge, Mouth pain, Mouth swelling, Throat pain, Throat swelling, Other Respiratory: Cough, Dry, Shortness of breath, SOB with excertion, Wheezing Cardiovascular: Chest Pain, Paroxysmal Noc. Dyspnea Gastrointestinal: No: Nausea, Vomiting, Abdominal Pain Neurological: Weakness Sepsis Event Evaluation Height, Weight, BMI Height: 5'1.00" Weight: 157lbs. 0.0oz. [id number]; 29.9 BMI Method:Stated Exam Exam Vital Signs Date Time Temp Pulse Resp B/P (MAP) Pulse Ox O2 Delivery O2 Flow Rate FiO2 12/05/17 05:45 66 15 133/82 (99) 94 Room Air 12/05/17 05:30 65 21 160/100 (120) 96 Room Air 12/05/17 05:15 81 12 133/85 (101) 96 Room Air 12/05/17 05:00 68 14 161/111 (128) 95 Room Air 12/05/17 04:45 66 21 149/98 (115) 90 Room Air 12/05/17 04:30 69 27 146/92 (110) 92 Room Air 12/05/17 04:15 68 11 151/98 (115) 90 Room Air 12/05/17 04:00 97.4 66 10 145/106 (119) 95 Room Air 12/05/17 04:00 98 Room Air 12/05/17 03:45 64 10 159/94 (115) 94 Room Air 12/05/17 03:30 74 20 165/100 (121) 94 Room Air 12/05/17 03:15 70 20 149/105 (120) 95 Room Air 12/05/17 03:00 67 37 155/104 (121) 94 Room Air 12/05/17 02:45 65 22 168/100 (122) 92 Room Air 12/05/17 02:30 67 11 132/91 (105) 95 Room Air 12/05/17 02:15 71 23 162/100 (120) 95 Room Air 12/05/17 02:00 66 26 152/95 (114) 92 Room Air 12/05/17 01:45 65 32 162/106 (124) 94 Room Air 12/05/17 01:30 66 10 156/99 (118) 96 Room Air 12/05/17 01:15 64 31 155/96 (115) 95 Room Air 12/05/17 01:14 97.3 12/05/17 01:00 66 12/05/17 01:00 66 20 151/102 (118) 94 Room Air 12/05/17 00:45 64 117/85 (96) Room Air 12/05/17 00:30 65 130/84 (99) Room Air 12/05/17 00:15 64 137/74 (95) Room Air 12/05/17 00:00 98 Room Air 12/05/17 00:00 97.3 65 133/78 (96) Room Air 12/04/17 23:45 81 32 130/96 (107) 94 Room Air 12/04/17 23:30 70 17 149/98 (115) 98 Room Air 12/04/17 23:15 72 14 147/102 (117) 94 Room Air 12/04/17 23:00 72 10 153/98 (116) 94 Room Air 12/04/17 22:45 74 14 145/93 (110) 95 Room Air 12/04/17 22:30 74 15 157/96 (116) 95 Room Air 12/04/17 22:15 71 14 157/102 (120) 97 Room Air 12/04/17 22:00 74 15 161/99 (119) 97 Room Air 12/04/17 21:45 77 15 160/97 (118) 97 Nasal Cannula 2.00 12/04/17 21:30 86 22 169/108 (128) 97 Nasal Cannula 2.00 12/04/17 21:23 Nasal Cannula 2.00 12/04/17 21:15 71 14 160/107 (124) 98 Nasal Cannula 2.00 12/04/17 21:00 70 13 159/101 (120) 97 Nasal Cannula 2.00 12/04/17 20:45 72 16 164/105 (124) 98 Nasal Cannula 2.00 12/04/17 20:30 75 16 166/104 (124) 98 Nasal Cannula 2.00 12/04/17 20:15 75 20 157/102 (120) 95 Nasal Cannula 2.00 12/04/17 20:00 77 13 162/102 (122) 97 Nasal Cannula 2.00 12/04/17 20:00 94 Nasal Cannula 2.00 12/04/17 19:48 97.5 82 14 148/98 (115) 98 Nasal Cannula 2.00 12/04/17 19:44 80 12/04/17 19:35 94 Nasal Cannula 2.00 12/04/17 18:14 72 18 185/101 100 Nasal Cannula 4.00 12/04/17 17:36 100 4.00 12/04/17 17:36 96.9 75 18 220/110 (146) 99 Nasal Cannula 2.00 12/04/17 17:36 Nasal Cannula 4.0 I & O 12/05/17 07:00 Intake Total 850 ml Output Total 1400 ml Balance -550 ml Height & Weight Height: 5'1.00" Weight: 157lbs. 0.0oz. 71.978275oy; 29.9 BMI Method:Stated General Appearance: WD/WN, Moderate Distress HEENT: PERRL/EOMI, Pharynx Normal, Moist Mucous Membranes Neck: Full Range of Motion, Supple Respiratory: Chest Non Tender, Lungs Clear, Normal Breath Sounds, No Accessory Muscle Use, No Respiratory Distress Cardiovascular: Regular Rate, Rhythm, No Edema, Normal Peripheral Pulses Capillary Refill: Less Than 3 Seconds Neurologic/Psychiatric: Alert, Oriented x3 Results Lab Laboratory Tests 12/04/17 17:35 12/05/17 03:20 Assessment/Plan Assessment/Plan Acute inferior AL s/p cath with stent to RCA VFib s/p defibrillation Tobacco use -Will do out patient PFT -education Obesity, Mallampati score, CAD -Will check out patient PSG DM HTN Labs and radiology reviewed. MUNDO ARANDA DO Dec 05, 2017 06:46
[2017-12-05] MEDS ORDERED: TIZA4TAB3 PO (07:22)
[2017-12-05] MEDS ORDERED: PRAM0.5T9 PO (07:22)
[2017-12-05] MEDS ORDERED: FLUT1DIS26 IH (07:22)
[2017-12-05] MEDS ORDERED: NABU500T PO (07:22)
[2017-12-05] MEDS ORDERED: PANT40TA3 PO (07:22)
[2017-12-05] MEDS ORDERED: HYDR-3820 PO (07:22)
--- NOTE | 2017-12-05 08:44 | Diagnostic Imaging Report ---
INDICATION: Heart disease. Comparison made with prior examination 12/04/2017. FINDINGS: The heart size, mediastinal configuration, and pulmonary vascularity are within normal limits. There is no pleural effusion, pneumothorax, or pneumonia. The osseous structures are unremarkable. IMPRESSION: No acute cardiopulmonary abnormality. Dictated by: Dictated on workstation # [id number]
[2017-12-05] MEDS ORDERED: lisINopril 40 MG (PRINIVIL) TABLET PO SCH (09:00)
[2017-12-05] MEDS: TICAGRELOR 90 MG TABLET (BRILINTA) PO SCH ×2 (09:09→21:03)
[2017-12-05] MEDS: meTOprolol TARTRATE 50 MG (LOPRESSOR) TAB PO SCH ×2 (09:09→21:04)
[2017-12-05] MEDS: lisINopril 20 MG (PRINIVIL) TABLET PO SCH (09:09)
[2017-12-05] MEDS: ASPIRIN E.C. 81 MG (ECOTRIN) TAB PO SCH (09:09)
[2017-12-05] MEDS ORDERED: CHLO-159 PO (09:45)
--- NOTE | 2017-12-05 10:37 | Consultation-Hospitalist ---
HPI History of Present Illness: HPI/Chief Complaint CC: Acute ST elevation AR with ventricular fibrillation requiring shock treatment in ER prior to cardiac catheterization with stent placement HPI: This is a 62-year-old white female clinic patient of [facility] with a past medical history of severe low back pain chronically on hydrocodone and Zanaflex who presents to the ER after ambulance was called by her autistic son due to severe chest pain. She was given aspirin and Plavix and nitroglycerin out in the field which resulted in mild hypotension so IV was started and transport to the ER ensued due to EKG consistent with ST elevation AR. Upon arrival she experienced an episode of ventricular fibrillation requiring electrical shock which resumed normal sinus rhythm and therefore was taken to cardiac catheter lab stent was placed and currently patient is doing much better and has no issues. She desperately wants to go home to take care of her artistic son who is 37 years old. She is disabled chronically for severe back pain. Source: patient Exam Limitations: no limitations Date Seen 12/05/17 Attending Physician Nohemy Mcclain MD PCP Evens Thompson MD Referring Physician Date of Admission Home Medications & Allergies Home Medications Reviewed patient Home Medication Reconciliation performed by pharmacy medication reconciliations emergency spill response technician and/or nursing. Patients Allergies have been reviewed. Allergies Allergies Coded Allergies latex (Unverified Allergy, Mild, RASH, 08/24/08) codeine (Verified Adverse Reaction, Mild, N/V, 08/30/08) Past Clxemkx-Rirkgi-Krfrqx Hx Past Med/Social Hx: Reviewed Nursing Past Med/Soc Hx, Reviewed and Corrections made Patient Social History Marrital Status: single Employed/Student: unemployed Alcohol Use: Denies Use Recreational Drug Use: No Smoking Status: Current Everyday Smoker Type Used: Cigarettes Physical Abuse Screen: No Sexual Abuse: No Recent Foreign Travel: No Contact w/other who traveled: No Recent Hopitalizations: Yes (ER VISIT) Recent Infectious Disease Expo: No Seasonal Allergies Seasonal Allergies: Yes Past Medical History Surgeries: Gallbladder, Hysterectomy, Oophorectomy Cardiac: Hypertension Reproductive: No Sexually Transmitted Disease: No Musculoskeletal: Fibromyalgia, Chronic Back Pain Endocrine: Diabetes, Non-Insulin dep History of Blood Disorders: No Family History Hypertension Review of Systems Constitutional: dizziness, weakness EENTM: no symptoms reported Respiratory: dyspnea on exertion Cardiovascular: chest pain Gastrointestinal: loss of appetite, nausea Genitourinary: no symptoms reported Musculoskeletal: no symptoms reported Skin: no symptoms reported Psychiatric/Neurological: No Symptoms Reported All Other Systems Reviewed Negative Unless Noted: Yes Physical Exam Physical Exam Vital Signs Vital Signs - First Documented Capillary Refill : Less Than 3 Seconds Height, Weight, BMI Height: 5'1.00" Weight: 157lbs. 0.0oz. 71.524228ug; 29.9 BMI Method:Stated General Appearance: No Apparent Distress, WD/WN, Chronically ill Eyes: Bilateral Eye Normal Inspection, Bilateral Eye PERRL HEENT: PERRL/EOMI, TMs Normal, Normal ENT Inspection, Pharynx Normal Neck: Full Range of Motion, Normal Inspection, Non Tender, Supple, Carotid Bruit Respiratory: Chest Non Tender, Lungs Clear, Normal Breath Sounds, No Accessory Muscle Use, No Respiratory Distress Cardiovascular: Regular Rate, Rhythm, No Edema, No Gallop, No JVD, No Murmur, Normal Peripheral Pulses Gastrointestinal: Normal Bowel Sounds, No Organomegaly, No Pulsatile Mass, Non Tender, Soft Back: Normal Inspection, No CVA Tenderness, No Vertebral Tenderness Extremity: Normal Capillary Refill, Normal Inspection, Normal Range of Motion, Non Tender, No Calf Tenderness, No Pedal Edema Neurologic/Psychiatric: Alert, Oriented x3, No Motor/Sensory Deficits, Normal Mood/Affect Skin: Normal Color, Warm/Dry Lymphatic: No Adenopathy Results Results/Procedures Labs Laboratory Tests 12/04/17 17:35 12/05/17 03:20 Patient resulted labs reviewed. 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 Plan: Monitor closely restart all home meds Await cardiology disposition Diagnosis/Problems Diagnosis/Problems (1) Acute transmural inferior wall AR Status: Acute (2) ST elevation (STEMI) myocardial infarction involving other coronary artery of inferior wall Status: Acute (3) Shockable cardiac rhythm detected by automated external defibrillator Status: Acute (4) S/P right coronary artery (RCA) stent placement Status: Acute (5) Ventricular fibrillation Status: Acute (6) Chronic low back pain Status: Chronic Qualifiers: Back pain laterality: unspecified Sciatica presence: unspecified whether sciatica present Qualified Codes: M54.5 - Low back pain; G89.29 - Other chronic pain (7) Hypertension Status: Chronic Qualifiers: Hypertension type: essential hypertension Qualified Codes: I10 - Essential (primary) hypertension (8) Smoker Status: Chronic (9) Depression Status: Chronic Qualifiers: Depression Type: unspecified Qualified Codes: F32.9 - Major depressive disorder, single episode, unspecified (10) Anxiety Status: Chronic (11) Back pain Status: Acute Qualifiers: Back pain location: back pain in unspecified location Chronicity: unspecified Back pain laterality: unspecified Qualified Codes: M54.9 - Dorsalgia, unspecified Clinical Quality Measures AMI/AHF: ASA po Prior to arrival: Yes (324MG PO BY EMS) DVT/VTE Risk/Contraindication: Risk Factor Score Per Nursin RFS Level Per Nursing on Admit: 4+=Very High KOBY SOTO DO Dec 05, 2017 10:37
[2017-12-05] MEDS ORDERED: PRAMIPEXOLE DI HCL 0.5 MG PO PRN (11:15)
[2017-12-05] MEDS ORDERED: PRAMIPEXOLE 0.5 MG TAB (MIRAPEX) PO PRN (11:30)
[2017-12-05] MEDS: HYDROcodone/APAP 10 MG/325 MG (LORTAB) TAB PO PRN (12:15)
[2017-12-05] MEDS ORDERED: meTOprolol TARTRATE 25 MG (LOPRESSOR) TABLET PO NR (14:45)
--- NOTE | 2017-12-05 17:42 | Cardiology Progress Note ---
Cardiology SOAP Progress Note Subjective: No further chest pain. Objective: I&O/Vital Signs 12/05/17 12/05/17 12/05/17 12/05/17 05:45 06:00 06:15 06:30 Pulse 66 71 71 66 Resp 15 25 8 31 B/P (MAP) 133/82 (99) 148/94 (112) 161/117 (132) 150/81 (104) Pulse Ox 94 94 95 94 O2 Delivery Room Air Room Air Room Air Room Air 12/05/17 12/05/17 12/05/17 12/05/17 06:45 07:00 07:00 08:00 Pulse 62 65 71 77 Resp 17 19 13 B/P (MAP) 154/99 (117) 161/105 (123) 155/99 (117) Pulse Ox 95 95 96 O2 Delivery Room Air Room Air Room Air 12/05/17 12/05/17 12/05/17 12/05/17 08:59 09:00 09:09 10:00 Temp 98.6 Pulse 77 71 Resp 18 17 B/P (MAP) 168/109 (128) 172/110 (130) Pulse Ox 94 94 O2 Delivery Room Air Room Air Room Air Room Air 12/05/17 12/05/17 12/05/17 12/05/17 11:00 12:00 12:15 13:00 Pulse 68 93 68 Resp 27 26 10 B/P (MAP) 113/96 (102) 136/89 (105) Pulse Ox 96 96 92 O2 Delivery Room Air Room Air Room Air Room Air 12/05/17 12/05/17 12/05/17 13:00 14:00 17:00 Temp 97.8 Pulse 70 72 77 Resp 14 16 B/P (MAP) 138/84 (102) 140/88 (105) Pulse Ox 95 95 O2 Delivery Room Air Room Air 12/05/17 00:00 Intake Total 300 ml Output Total 1000 ml Balance -700 ml Weight (Pounds): 157 Weight (Ounces): 0.0 Weight (Calculated Kilograms): 71.573178 Constitutional: appears stated age, apparent distress, well-developed, well- nourished Respiratory: No accessory muscle use, No respiratory distress, No chest tender , No chest expansion is symmetric; chest is bilaterally symmetric; No lungs clear to percussion; lungs clear to auscultation; No crackles, No rhonchi, No rales, No stridor, No wheezing, No pleural rub, No other Cardiovascular: regular rate-rhythm; No irregularly irregular, No extra beats, No parasternal heave is noted, No JVD, No edema, No bradycardia, No tachycardia , No point of maximal impulse, No cardiac thrills are palpable; S1 and S2; No gallop/S3, No gallop/S4, No diastolic murmur, No systolic murmur, No friction rub, No click, No other Gastrointestional: No tender, No soft, No round, No distended, No pulsatile mass, No organomegaly, No guarding, No rebound, No tenderness, No hernia, No mass, No audible bowel sounds, No abnormal bowel sounds, No abdominal bruits, No spleenomegaly, No other Extremities: No normal range of motion, No non-tender, No normal inspection, No pedal edema, No calf tenderness, No normal capillary refill, No pelvis stable , No calf tenderness, No inflammation, No pedal edema, No slow capillary refill , No swelling, No other, No abrasion, No clubbing, No cyanosis, No ecchymosis, No laceration, No no lower extremity edema bilateral, No significant edema, No tenderness, No wound Neurologic/Psychiatric: no motor/sensory deficits, alert, normal mood/affect, oriented x 3, power is 5/5 both on sides Skin: No normal color, No warm/dry, No cyanosis, No cool, No diaphoresis, No damp, No ecchymosis, No jaundice, No mottled, No pallor, No rash, No tattoos/ piercings, No ulcerations, No rash on exposed areas, No ulcerations on exposed areas, No other Results/Procedures: Labs Laboratory Tests 12/04/17 21:34: Glucometer 186H 12/05/17 03:20: White Blood Count 11.9H, Red Blood Count 5.06, Hemoglobin 15.7, Hematocrit 46, Mean Corpuscular Volume 90, Mean Corpuscular Hemoglobin 31, Mean Corpuscular Hemoglobin Concent 35, Red Cell Distribution Width 14.0, Platelet Count 154, Mean Platelet Volume 10.4, Neutrophils (%) (Auto) 73, Lymphocytes (%) (Auto) 18 , Monocytes (%) (Auto) 8, Eosinophils (%) (Auto) 1, Basophils (%) (Auto) 0, Neutrophils # (Auto) 8.6H, Lymphocytes # (Auto) 2.1, Monocytes # (Auto) 1.0, Eosinophils # (Auto) 0.1, Basophils # (Auto) 0.0, Sodium Level 136, Potassium Level 4.1, Chloride Level 104, Carbon Dioxide Level 22, Anion Gap 10, Blood Urea Nitrogen 11, Creatinine 0.71, Estimat Glomerular Filtration Rate > 60, BUN/ Creatinine Ratio 15, Glucose Level 191H, Calcium Level 9.0, Phosphorus Level 3.7 , Magnesium Level 1.9, Troponin I 153.11*H, Triglycerides Level 211H, Cholesterol Level 197, LDL Cholesterol Direct 144H, VLDL Cholesterol 42H, HDL Cholesterol 32L 12/05/17 12:10: Glucometer 189H 12/05/17 16:57: Glucometer 200H A/P: Assessment/Dx: Acute inferior wall myocardial infarction, Ventricular fibrillation cardiac arrest, status post defibrillation, Active smoking, Diabetes, Hypertension. Plan: Acute inferior wall myocardial infarction, and aspirin bolus, Brilinta bolus, 5000 international units of heparin. Primary PCI to proximal RCA with drug- eluting stent. Significant clot burden therefore overnight IV Integrilin was given. Significant improvement. Ventricular fibrillation cardiac arrest, status post defibrillation, beta blockers. Active smoking, strongly recommended to quit smoking. Diabetes, Hypertension, beta blockers and HEMA inhibitor. Patient will be admitted to the ICU. Thank you for your consultation. Please call me if you have any questions. Nader Mcclain MD, FACP, FACC, FSCAI, FHRS, CCDS Interventional Cardiology Cardiac Electrophysiology Vascular Medicine and Endovascular Interventions Clinical Quality Measures AMI/AHF: ASA po Prior to arrival: Yes (324MG PO BY EMS) Nohemy MCCLAIN MD Dec 05, 2017 5:42 pm
[2017-12-05] MEDS ORDERED: PANTOPRAZOLE 40 MG (PROTONIX) TAB PO SCH (21:00)
[2017-12-05] MEDS ORDERED: ATENOLOL 50 MG (TENORMIN) TAB PO SCH (21:00)
[2017-12-05] MEDS ORDERED: NON-FORMULARY MEDICATION 1 EA EA (Nabumetone 500 MG) PO SCH (21:00)
[2017-12-05] MEDS ORDERED: NON-FORMULARY MEDICATION 1 EA EA (Fluticasone/Salmeterol (Advair 250-50 Diskus) 1 EACH) IH SCH (21:00)
[2017-12-05] MEDS ORDERED: RT-ADVAIR HFA 115/21 MCG PER PUFF IH SCH (21:00)
[2017-12-05] MEDS: ATORVASTATIN 80 MG (LIPITOR) TABLET PO SCH (21:03)
[2017-12-06] VITALS: BP 122/67
[2017-12-06 04:35] LABS: BASOPHILS % (AUTO) 0 % (0-10); EOSINOPHILS # (AUTO) 0.2 10^3/uL (0.0-0.3); EOSINOPHILS % (AUTO) 2 % (0-10); HEMATOCRIT 44 % (35-52); HEMOGLOBIN 14.6 G/DL (11.5-16.0); LYMPHOCYTES # (AUTO) 3.3 X 10^3 (1.0-4.0); LYMPHOCYTES % (AUTO) 32 % (12-44); MEAN CORPUSCULAR HEMOGLOBIN 30 PG (25-34); MEAN CORPUSCULAR HGB CONC 33 G/DL (32-36); MEAN CORPUSCULAR VOLUME 91 FL (80-99); MEAN PLATELET VOLUME 10.5 FL (7.4-10.4); MONOCYTES # (AUTO) 1.1 X 10^3 (0.0-1.0); MONOCYTES % (AUTO) 11 % (0-12); NEUTROPHILS # (AUTO) 5.8 X 10^3 (1.8-7.8); NEUTROPHILS % (AUTO) 55 % (42-75); PLATELET COUNT 144 10^3/uL (130-400); RED BLOOD COUNT 4.83 10^6/uL (4.35-5.85); RED CELL DISTRIBUTION WIDTH 14.2 % (10.0-14.5); WHITE BLOOD COUNT 10.5 10^3/uL (4.3-11.0)
[2017-12-06 04:57] LABS: BUN/CREATININE RATIO 17; CALCIUM 9.1 MG/DL (8.5-10.1); CARBON DIOXIDE 22 MMOL/L (21-32); CHLORIDE 109 MMOL/L (98-107); CREATININE SERUM 0.71 MG/DL (0.60-1.30); GFR ESTIMATED > 60; GLUCOSE 158 MG/DL (70-105); MAGNESIUM 2.3 MG/DL (1.8-2.4); PHOSPHORUS 2.9 MG/DL (2.3-4.7); POTASSIUM 4.2 MMOL/L (3.6-5.0); SODIUM 139 MMOL/L (135-145)
[2017-12-06] MEDS: inSUlin ASPART (NovoLOG) 1 UNIT/0.01 ML (CHARGE PER UNIT) SC SCH (05:09)
[2017-12-06] MEDS: TICAGRELOR 90 MG TABLET (BRILINTA) PO SCH (07:44)
[2017-12-06] MEDS: lisINopril 20 MG (PRINIVIL) TABLET PO SCH (07:44)
[2017-12-06] MEDS: ASPIRIN E.C. 81 MG (ECOTRIN) TAB PO SCH (07:44)
[2017-12-06] MEDS: HYDROcodone/APAP 10 MG/325 MG (LORTAB) TAB PO PRN (07:44)
[2017-12-06] MEDS: meTOprolol TARTRATE 50 MG (LOPRESSOR) TAB PO SCH (07:45)
[2017-12-06] MEDS ORDERED: LISI-552 PO (09:59)
[2017-12-06] MEDS ORDERED: ATOR80TA76 PO (09:59)
[2017-12-06] MEDS ORDERED: ASPI-983 PO (09:59)
[2017-12-06] MEDS ORDERED: METO50TA15 PO (09:59)
[2017-12-06] MEDS ORDERED: TICA90TA PO (09:59)
--- NOTE | 2017-12-06 11:24 | Discharge Summary-Hospitalist ---
Diagnosis/Chief Complaint Date of Admission Date of Discharge Discharge Date: Dec 06, 2017 Discharge Diagnosis (1) Acute transmural inferior wall AR Status: Acute (2) ST elevation (STEMI) myocardial infarction involving other coronary artery of inferior wall Status: Acute (3) Shockable cardiac rhythm detected by automated external defibrillator Status: Acute (4) S/P right coronary artery (RCA) stent placement Status: Acute (5) Ventricular fibrillation Status: Acute (6) Chronic low back pain Status: Chronic (7) Hypertension Status: Chronic (8) Smoker Status: Chronic (9) Depression Status: Chronic (10) Anxiety Status: Chronic (11) Back pain Status: Acute Discharge Summary Discharge Physical Exam Allergies: Coded Allergies: latex (Unverified Allergy, Mild, RASH, 08/24/08) codeine (Verified Adverse Reaction, Mild, N/V, 08/30/08) Vitals & I&Os Vital Signs Date Time Temp Pulse Resp B/P (MAP) Pulse Ox O2 Delivery O2 Flow Rate FiO2 12/06/17 08:00 Room Air 12/06/17 07:00 66 12/06/17 00:00 98.4 18 122/67 (85) 95 12/04/17 23:45 General Appearance: Alert, Oriented X3, Cooperative Hospital Course Hospital course: Patient had an uneventful hospital course after she was brought to the ER in an acute myocardial infarction with ST elevation required shocks for ventricular fibrillation and proceeded on with the Electrocardiograph Technician with stent placement in the RCA. Patient tolerated the procedure well and was monitored overnight patient had no complications following the procedure and was discharged with close follow-up a [facility] since she has lost her pain pill prescription and she will also have close follow-up with cardiology. Labs (last 24 hrs) Laboratory Tests 12/05/17 12:10: Glucometer 189H 12/05/17 16:57: Glucometer 200H 12/05/17 20:54: Glucometer 161H 12/06/17 04:10: White Blood Count 10.5, Red Blood Count 4.83, Hemoglobin 14.6, Hematocrit 44, Mean Corpuscular Volume 91, Mean Corpuscular Hemoglobin 30, Mean Corpuscular Hemoglobin Concent 33, Red Cell Distribution Width 14.2, Platelet Count 144, Mean Platelet Volume 10.5H, Neutrophils (%) (Auto) 55, Lymphocytes (%) (Auto) 32 , Monocytes (%) (Auto) 11, Eosinophils (%) (Auto) 2, Basophils (%) (Auto) 0, Neutrophils # (Auto) 5.8, Lymphocytes # (Auto) 3.3, Monocytes # (Auto) 1.1H, Eosinophils # (Auto) 0.2, Basophils # (Auto) 0.0, Sodium Level 139, Potassium Level 4.2, Chloride Level 109H, Carbon Dioxide Level 22, Anion Gap 8, Blood Urea Nitrogen 12, Creatinine 0.71, Estimat Glomerular Filtration Rate > 60, BUN/ Creatinine Ratio 17, Glucose Level 158H, Calcium Level 9.1, Phosphorus Level 2.9 , Magnesium Level 2.3, Troponin I 45.34*H Microbiology 12/04/17 MRSA Screen - Final, Complete MRSA not isolated Patient resulted labs reviewed. Pending Labs Laboratory Tests 12/06/17 04:10: White Blood Count 10.5, Red Blood Count 4.83, Hemoglobin 14.6, Hematocrit 44, Mean Corpuscular Volume 91, Mean Corpuscular Hemoglobin 30, Mean Corpuscular Hemoglobin Concent 33, Red Cell Distribution Width 14.2, Platelet Count 144, Mean Platelet Volume 10.5, Neutrophils (%) (Auto) 55, Lymphocytes (%) (Auto) 32 , Monocytes (%) (Auto) 11, Eosinophils (%) (Auto) 2, Basophils (%) (Auto) 0, Neutrophils # (Auto) 5.8, Lymphocytes # (Auto) 3.3, Monocytes # (Auto) 1.1, Eosinophils # (Auto) 0.2, Basophils # (Auto) 0.0, Sodium Level 139, Potassium Level 4.2, Chloride Level 109, Carbon Dioxide Level 22, Anion Gap 8, Blood Urea Nitrogen 12, Creatinine 0.71, Estimat Glomerular Filtration Rate > 60, BUN/ Creatinine Ratio 17, Glucose Level 158, Mean Blood Glucose [Pending], Hemoglobin A1c [Pending], Calcium Level 9.1, Phosphorus Level 2.9, Magnesium Level 2.3, Troponin I 45.34 Discussion & Recommendations Discharge Planning: <30 minutes discharge planning Discharge Home Medications: Active Scripts Active Aspirin EC (Aspirin) 81 Mg Tablet.dr 81 Mg PO DAILY 30 Days Lisinopril 20 Mg Tablet 20 Mg PO DAILY@0900 30 Days Atorvastatin Calcium 80 Mg Tablet 80 Mg PO HS 30 Days Brilinta (Ticagrelor) 90 Mg Tablet 90 Mg PO BID 30 Days Metoprolol Tartrate 50 Mg Tablet 75 Mg PO BID 30 Days Reported Chlortabs (Chlorpheniramine Maleate) 4 Mg Tablet 4 Mg PO DAILY Pantoprazole Sodium 40 Mg Tablet.dr 40 Mg PO HS Advair 250-50 Diskus (Fluticasone/Salmeterol) 1 Each Blst.w.dev 1 Each IH HS Pramipexole Dihydrochloride (Pramipexole Di-HCl) 0.5 Mg Tablet 0.5 Mg PO TID PRN Hydrocodon-Acetaminophn 10-325 (Hydrocodone/Acetaminophen) 1 Each Tablet 1 Each PO Q6H PRN Tizanidine HCl 4 Mg Tablet 4 Mg PO TID PRN Nabumetone 500 Mg Tablet 500 Mg PO BID Instructions to patient/family Please see electronic discharge instructions given to patient. Clinical Quality Measures AMI/AHF: ASA po Prior to arrival: Yes (324MG PO BY EMS) DVT/VTE Risk/Contraindication: Risk Factor Score Per Nursin RFS Level Per Nursing on Admit: 4+=Very High Problem Qualifiers (1) Chronic low back pain: Back pain laterality: unspecified Sciatica presence: unspecified whether sciatica present Qualified Codes: M54.5 - Low back pain; G89.29 - Other chronic pain (2) Hypertension: Hypertension type: essential hypertension Qualified Codes: I10 - Essential ( primary) hypertension (3) Depression: Depression Type: unspecified Qualified Codes: F32.9 - Major depressive disorder, single episode, unspecified (4) Back pain: Back pain location: back pain in unspecified location Chronicity: unspecified Back pain laterality: unspecified Qualified Codes: M54.9 - Dorsalgia, unspecified KOBY SOTO DO Dec 06, 2017 11:24
--- NOTE | 2017-12-06 14:38 | Discharge Inst-Post CATH ---
Discharge Inst-CATH Post Cardiac Cath D/C Inst Follow Up/Plan Follow-up with Dr. Mcclain in 2 weeks. CARDIAC CATH DISCHARGE INSTRUCTIONS *Hold Metformin for 48 hours post heart cath. ACTIVITY * Go Home directly and rest. * Limit activity of the leg (or wrist if it was used) for 7 days including aerobics, swimming, jogging, bicycling, etc. * Restrict stair-climbing for 7 days if possible, if not, climb up with your non -cath leg, then bring together on the same step. * Avoid lifting, pushing, pulling or excessive movement of the affected extremity for 7 days. * Customary sexual activity may be resumed after 2 days-use caution not to use a position that strains or causes pain to the affected extremity. * No driving for 24 hours. * NO SMOKING. * Avoid straining for bowel movements for 7 days. * Gentle walking on level ground is allowed. * Returning to work will depend on the type of procedure and the results. Your doctor will discuss this with you. CALL YOUR DOCTOR FOR ANY OF THE FOLLOWING: *If bleeding from the puncture site occurs- Apply gentle pressure to site with clean cloth and call your doctor or EMS. * If a knot or lump forms under the skin, increases in size, or causes pain. * If bruising appears to be worsening or moving further down your leg instead of disappearing. * Temperature above 101 F. CARE OF YOUR GROIN INCISION; * Bruising or purple discoloration of the skin near the puncture site is common. * You may shower only, no bathtub bathing for 5 days. Be careful to avoid slipping as your leg may feel stiff. * If a closure device was used on your femoral artery, please see the attached guide regarding care of the device and your leg. * REMOVE the dressing from your groin the next day after your procedure in the shower. CARE OF YOUR WRIST INCISION; * Bruising or purple discoloration of the skin near the puncture site is common. * You may shower. * DO NOT submerge wrist. * Remove dressing in 24 hours. Nohemy MCCLAIN MD Dec 06, 2017 14:38
--- NOTE | 2017-12-06 14:40 | Cardiology Discharge Summary ---
Diagnosis/Chief Complaint Date of Admission 12/04/2017 Date of Discharge 12/06/2017 Admission Diagnosis Acute inferior wall ST elevation MN, ventricular fibrillation Final/Discharge Diagnosis Acute inferior STEMI, status post primary PCI to proximal RCA. Chief Complaint/HPI Chief Complaint/HPI This is a 62-year-old lady with history of active smoking, hypertension, diabetes whose chest pain started 3-1/2 hours before coming to the ER. It was not severe. Therefore she took a nap and woke up 2 hours later with severe chest pain. Substernal with no significant radiation. Intensity 10/10. She presented to the ER one and a half hour later. EKG demonstrated inferior ST elevation MN. She went into ventricular fibrillation in the ER and was shocked. Discharge Summary Procedures Primary PCI to proximal RCA with drug-eluting stent. Discharge Physical Examination Normal cardiovascular examination. Normal right groin examination. Hospital Course Unremarkable. Discussion & Recommendations Discussion Discussed at length with the patient. Especially compliance with dual antiplatelet therapy. Smoking cessation was strongly recommended. Follow-up with cardiology. Discharge took over 30 minutes to complete. Follow up appt.: Dr. Mcclain in the next 2-3 weeks. Dicharge Diet: Cardiac Diet Activity as Tolerated: Yes Home Medications Reviewed patient Home Medication Reconciliation performed by pharmacy medication reconciliations senior service technician and/or nursing. Patients Allergies have been reviewed. Discharge Home Medications: Reviewed and agree with Discharge Medication list on patient's Discharge Instruction sheet Condition at discharge Stable. Instructions to patient/family Follow-up with Dr. Mcclain in 2 weeks. Clinical Quality Measures AMI/AHF: ASA po Prior to arrival: Yes (324MG PO BY EMS) DVT/VTE Risk/Contraindication: Risk Factor Score Per Nursin RFS Level Per Nursing on Admit: 4+=Very High Nohemy MCCLAIN MD Dec 06, 2017 14:40
--- OUTSIDE RECORDS SUMMARY | 2017-12-12 00:47 | XMS REPORT ---
Author Author SAADIA MCKNIGHT [facility] IN [facility] Address [address] [place] [address] Care Team Providers Care News Assistant Name Role Phone SAADIA MCKNIGHT Unavailable PROBLEMS Type Condition ICD9-CM Code FKR31-NZ Code Onset Dates Condition Status SNOMED Code Problem Nicotine dependence, uncomplicated, unspecified nicotine product type F17.200 Active 76857909 Problem Ab[address] CT lung screening R93.8 Active 987693333 Problem Mild persistent asthma without complication J45.30 Active 231832909 Problem Restless leg syndrome G25.81 Active 94840158 Problem Osteoarthritis of spine with radiculopathy, cervical region M47.22 Active 788439605 Problem RLS (restless legs syndrome) G25.81 Active 16909345 Problem Diabetes mellitus type 2, controlled E11.9 Active 379059710 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 511782307917592 Problem Hypertension, benign I10 Active 48749465 Problem Essential hypertension I10 Active 08601150 ALLERGIES Substance Reaction Event Type Date Status Latex rash Drug Allergy Jul, Active Lyrica nightmares Drug Allergy Jul, Active Codeine Phosphate nausea and vomiting Drug Allergy Jul, Active ENCOUNTERS Encounter Location Date Diagnosis [place] [address], [place] [address] Nov, Diabetes mellitus type 2, controlled E11.9 [facility] [place] [address], [place] [address] Oct, [facility] [place] [id number] [place] [address]5723- 5706 Oct, [facility] [place] [address], [place] [address] Oct, Skin tags, multiple acquired L91.8 [place] [id number] [address] Oct, [facility] [place] [address] Oct, Diabetes mellitus type 2, controlled E11.9 and Osteoarthritis of spine with radiculopathy, cervical region M47.22 [facility] [place] [address] [address] September, Osteoarthritis of spine with radiculopathy, cervical region M47.22 ; Coughing R05 ; Chronic pruritus L29.9 and Breast cancer screening Z12.31 [facility] [place] [id number] [place] [address] 220801- 0549 September, Diabetes mellitus type 2, controlled E11.9 [facility] [address], [place] [address] Jul, Chronic cough R05 [facility] [place] [id number] [address] Jul, [facility] [place] [address], [place] [address] 78[address] Jul, Diabetes mellitus type 2, controlled E11.9 [facility] [place] [address], [place] [address] Jul, [facility] [place] [address], [place] [address] 0[address] Jul, [facility] [place] [address], [place] [address] 1566 Jun, [facility] [place] [address] Jun, Diabetes mellitus type 2, controlled E11.9 [facility] [place] [address] [address] Jun, [facility] [place] [address] [address] May, [place] [id number] [place] [address] 12884- 1085 May, Diabetes mellitus type 2, controlled E11.9 [place] [id number] [place] [address] 28542- 3541 Apr, [place] [id number] [place] [address] 73752- 4015 Apr, Pneumonia of right upper lobe due to infectious organism J18.1 [place] [id number] [place] [address] 68366- 5342 Mar, [place] [address] [address]- 9060 Mar, [place] [id number] [place] [address] 48234- 1665 Mar, [place] [id number] [place] [address] 77832- 4865 Mar, Coughing R05 and SOB (shortness of breath) R06.02 [place] [id number] [place] [address] 17684- 8552 Mar, Diabetes mellitus type 2, controlled E11.9 ; Coughing R05 and SOB (shortness of breath) R06.02 [place] [id number] [place] [address] 94610- 3807 Feb, [place] [id number] [place] [address] 87660- 9077 Feb, [place] [id number] [place] [address] 53460- 1572 Jan, Hypertension, benign I10 and RLS (restless legs syndrome) G25.81 [place] [id number] [place] [address] 82202- 8165 Jan, [place] [id number] [place] [address] 32893- 7446 16 Aug, 2017 Pain in unspecified joint M25.50 and Mild persistent asthma without complication J45.30 [facility] [place] [id number] [place] [address] 91797- 6101 Dec, [facility] [place] [id number] [place] [address] 12327- [address] Dec, [address] lung screening R93.8 [facility] [place] [id number] [place] [address] 40584- 0537 Dec, [facility] [place] [id number] [place] [address] 49038- 5538 Nov, Screening for breast cancer Z12.31 [facility] [place] [id number] [place] [address] 97296- 7932 Nov, [facility] [place] [id number] [place] [address] 41759- 8201 Nov, Essential hypertension I10 [facility] [place] [id number] [place] [address] 68332- 9428 Nov, Essential hypertension I10 [facility] [place] [id number] [place] [address] 92776- 6910 Oct, Acute non-recurrent maxillary sinusitis J01.00 [facility] [place] [address] [place] [address] 58467- 0520 Oct, [facility] [place] [address] [place] [address] 09942- 9485 September, Acute non-recurrent maxillary sinusitis J01.00 [facility] [address] [place] [address] 67148 -1299 September, Low back pain M54.5 [facility] [place] [id number] [place] [address] 83242- 1842 September, [facility] [place] [address] [place] [address] 52726- 1844 Aug, Acute non-recurrent maxillary sinusitis J01.00 [facility] [id number] [id number] Aug, Dental examination Z01.20 [facility] [place] [address] [place] [address] 70026- 2977 Aug, [facility] [place] [address], [place] [address]- 0290 Aug, [facility] [place] [id number] [place] [address] 68896- 8795 Aug, [facility] [place] [address] [place] [address] 81097- 0882 Aug, Acute sinusitis J01.90 [facility] [place] [address], [place] [address]- 2661 Jul, [facility] [place] [id number] [place] [address] 06051- 2306 Jul, [facility] [place] [address], [place] [address]- 1513 Jul, [facility] [place] [address], [place] [address]- 9732 Jul, [facility] [place] [address], [place] [address]- 5578 Jul, Frequent urination R35.0 and Acute cystitis with hematuria N30.01 [facility] [place] [address], [place] [address]- 2209 Jul, [facility] [place] [address], [place] [address]- 6312 Jun, [facility] [place] [address], [place] [address]- 5975 Jun, Acute sinusitis J01.90 [facility] [place] [address] 8313 Jun, Diabetes mellitus type 2, controlled E11.9 ; Cough R05 ; Acute non-recurrent maxillary sinusitis J01.00 and senior consultant (current) use of opiate analgesic Z79.891 [facility] [place] [address], [place] [address]- 5670 May, [facility] [place] [address] [facility] [id number] [address]- 3627 May, [facility] [place] [id number] [place] [address] 04507- 6241 May, [facility] [place] [id number] [place] [address] 68531- 2479 Apr, [facility] [place] [id number] [place] [address] 40453- 8075 Apr, [facility] [place] [id number] [place] [address] 73450- 6072 Apr, [facility] [id number] [place] [address] 79202 -5036 Apr, Acute non-recurrent maxillary sinusitis J01.00 [facility] [place] [address], [place] [address]- 7640 Apr, [facility] [place] [id number] [place] [address] 77097- 1021 Feb, [facility] [place] [address], [place] [address]- 8683 Feb, [facility] [place] [id number] [place] [address] 75966- 1341 Feb, [facility] [place] [id number], [place] [address]- 2448 Feb, [facility] [place] [id number] [place] [address] 08334- 9743 Feb, [facility] [place] [address], [place] [address]- 5667 Feb, [facility] [place] [id number] [place] [address] 66845- 1142 Jan, RLS (restless legs syndrome) G25.81 ; Osteoarthritis of spine with radiculopathy, cervical region M47.22 ; Lumbar neuritis M54.16 and Left sciatic nerve pain M54.32 [facility] [place] [id number] [place] [address] 80654- 4273 Jan, [facility] [place] [id number] [place] [address] 55660- 9485 Dec, [facility] [place] [id number] [place] [address] 76805- 6041 Nov, [facility] [place] [id number] [place] [address] 10550- 2164 Nov, [facility] [place] [id number] [place] [address] 80698- 7968 Nov, [facility] [place] [id number] [place] [address] 89952- 3253 Nov, Restless leg syndrome G25.81 and Controlled type 2 diabetes mellitus without complication, without long-term current use of insulin E11.9 [facility] [place] [id number] [place] [address] 31618- 6226 Nov, [facility] [place] [id number] [place] [address] 52313- 5298 Oct, [facility] [place] [id number] [place] [address] 30444- 2516 Oct, [facility] [place] [id number] [place] [address] 82948- 8009 Oct, [facility] [place] [address] 62266- 4902 Oct, 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 lung screening R93.8 [facility] [place] [id number] [place] [address] 62162- 4668 Oct, [facility] [place] [address] [place] [address]- 9582 September, [facility] [place] [address], [place] [address]- 2915 September, Physical exam, annual Z00.00 ; Nicotine dependence, uncomplicated, unspecified nicotine product type F17.200 ; Screening breast examination Z12.39 ; Restless leg syndrome G25.81 and Mild persistent asthma without complication J45.30 [facility] [place] [id number] [place] [address] 23552- 8961 September, [facility] [place] [id number] [place] [address] 54645- 8178 September, [facility] [place] [id number] [place] [address] 88246- 9495 Aug, [place] [id number] [place] [address] 85666- 5741 Jul, Dental examination Z01.20 and Dental caries K02.9 [facility] [place] [id number] [place] [address] 70459- 5234 Jul, [facility] [place] [id number] [place] [address] 82125- 9297 Jul, Diabetes mellitus type 2, controlled E11.9 and Pain in unspecified joint M25.50 [place] [address], [place] [address]- 6880 Jul, [facility] [place] [id number] [place] [address] 66067- 2420 Jun, Dental examination Z01.20 [facility] [place] [address], [place] [address]- 3049 May, [facility] [place] [id number] [place] [address] 91241- 3485 May, [facility] [place] [address], [place] [address]- 7962 Apr, [facility] [place] [address], [place] [address]- 3357 Mar, [facility] [place] [id number] [place] [address] 12302- 7578 Mar, Acute sinusitis J01.90 [facility] [place] [id number] [place] [address] 04685- 0347 Feb, [facility] [place] [id number] [place] [address] 71308- 2140 Jan, Flu vaccine need V04.81 [facility] [place] [id number] [place] [address] 00589- 8073 Jan, [facility] [place] [id number] [place] [address] 86203- 8693 Jan, Pain in joint, site unspecified 719.40 [place] [id number] [place] [address] 21617- 3799 Dec, Pain in joint, site unspecified 719.40 [facility] [place] [id number] [place] [address] 01356- 2103 Dec, [facility] [place] [id number] [place] [address] 80820- 0079 Dec, [facility] [place] [id number] [place] [address] 15449- 9031 Dec, Sciatica 724.3 ; Restless legs syndrome [RLS] 333.94 and Encounter for smoking cessation counseling V65.42 [facility] [place] [address] [place] [address] 68076- 2708 Dec, Nicotine dependence 305.1 [facility] [place] [id number] [place] [address] 90175- 1558 Nov, [facility] [place] [id number] [place] [address] 73496- 1805 Oct, [facility] [place] [id number] [place] [address] 79680- 4261 Oct, [facility] [place] [facility] [address] [id number] [place] [address]- 4244 September, [facility] [place] [facility] [address] [id number] [place] [address]- 9952 Aug, [facility] [place] [facility] [address] [id number] [place] [address]- 4472 Aug, [facility] [place] [facility] [address] [id number] [place] [address]- 3178 Jul, [facility] [place] [facility] [address] [id number] [place] [address]- 0763 Jul, [facility] [place] [facility] [address] [id number] [place] [address]- 1270 Jul, [facility] [place] [facility] [address] [id number] [place] [address]- 0505 Jun, [facility] [place] [facility] [address] [id number] [place] [address]- 8767 Jun, [facility] [place] [facility] [address] [id number] [place] [address]- 4942 Jun, [facility] [place] [facility] [address] [id number] [place] [address]- 0262 Jun, [facility] [place] [facility] [address] [id number] [place] [address]- 1994 May, [facility] [place] [facility] [address] [id number] [place] [address]- 1672 May, [facility] [place] [facility] [address] [id number] [place] [address]- 5550 May, [facility] [place] [facility] [address] [id number] [place] [address]- 7223 May, [facility] [place] [facility] [address] [id number] [place] [address]- 2083 May, [facility] [place] [facility] [address] [id number] [place] [address]- 5850 May, [facility] [address] [id number] [place] [address]- 0905 May, [facility] [place] [facility] [address] [id number] [place] [address]- 0339 Apr, [facility] [address] [id number] [place] 3909 Apr, [facility] [place] [facility] [address] [id number] [place] [address]- 8854 Apr, [facility] [place] [facility] [address] [id number] [place] [address]- 4174 Apr, [facility] [place] [facility] [address] [id number] [place] [address]- 7083 Apr, [facility] [place] [facility] [address] [id number] [place] [address]- 3048 Apr, [facility] [address] [id number] [place] [address]- 5317 Apr, [facility] [place] [facility] [address] [id number] [place] [address]- 9422 Apr, [facility] [place] [facility] [address] [id number] [place] [address] Apr, [facility] [place] [facility] [address] [id number] [place] [address] Apr, [facility] [place] [facility] [address] [id number] [place] [address] Mar, [facility] [place] [facility] [address] [id number] [place] [address] Mar, [facility] [place] [facility] [address] [id number] [place] [address] Mar, [facility] [place] [facility] [address] [id number] [place] [address] Mar, [facility] [place] [facility] [address] [id number] [place] [address] Mar, [facility] [place] [facility] [address] [id number] [place] [address] Mar, [facility] [place] [facility] [address] [id number] [place] [address] 15 Feb, 2014 [facility] [place] [facility] [address] [id number] [place] [address] 15 Feb, 2014 [facility] [place] [facility] [address] [id number] [place] [address] Feb, [facility] [place] [facility] [address] [id number] [place] [address] Feb, [facility] [place] [facility] [address] [id number] [place] [address] Feb, [facility] [place] [facility] [address] [id number] [place] [address] Feb, [facility] [place] [facility] [address] [id number] [place] [address] Jan, [facility] [place] [facility] [address] [id number] [place] [address] Jan, [facility] [place] [facility] [address] [id number] [place] [address] 11 Jan, 2014 [facility] [place] [facility] [address] [id number], [place] [address] Jan, [facility] [place] [facility] [address] [id number] [place] [address] Dec, [facility] [place] [facility] [address] [id number] [place] [address] Dec, [facility] [place] [facility] [address] [id number] [place] [address] Dec, [facility] [place] [facility] [address] [id number], [place] [address] Dec, [facility] [place] [facility] [address] [id number] [place] [address] Dec, [facility] [place] [facility] [address] [id number] [place] [address] 16 Nov, 2013 [facility] [place] [facility] [address] [id number] [place] [address] 16 Nov, 2013 [facility] [place] [facility] [address] [id number] [place] [address] 15 Nov, 2013 [facility] [place] [facility] [address] [id number] [place] [address] Nov, [facility] [place] [facility] [address] [id number] [place] [address] Nov, [facility] [place] [facility] [address] [id number] [place] [address] Nov, [facility] [place] [facility] [address] [id number] [place] [address] Oct, [facility] [place] [facility] [address] [id number] [place] [address] Oct, [facility] [place] [facility] [address] [id number] [place] [address] September, [facility] [place] [facility] [address] [id number] [place] [address] September, [facility] [place] [facility] [address] [id number] [place] [address] September, [facility] [place] [facility] [address] [id number] [place] [address] September, [facility] [place] [facility] [address] [id number] [place] [address] Aug, [facility] [place] [facility] [address] [id number] [place] [address] Aug, [facility] [place] [facility] [address] [id number] [place] [address] 17 Jul, 2013 [facility] [place] [facility] [address] [id number] [place] [address]12 17 Jul, 2013 [facility] [place] [facility] [address] [id number] [place] [address] 14 Jul, 2013 [facility] [place] [facility] [address] [id number] [place] [address] 1993 14 Jul, 2013 [facility] [place] [facility] [address] [id number] [place] [address] Jun, [facility] [place] [facility] [address] [id number] [place] [address] 1400 Jun, [facility] [place] [facility] [address] [id number] [place] [address] 1171 Jun, [facility] [place] [facility] [address] [id number] [place] [address] 360[address] Jun, [facility] [place] [facility] [address] [id number] [place] [address] 2269 May, [facility] [place] [facility] [address] [id number] [place] [address]- 1823 May, [facility] [place] [facility] [address] [id number] [place] [address] 3850 May, [facility] [place] [facility] [address] [id number] [place] [address]- 2794 May, [facility] [place] [facility] [address] [id number] [place] [address]- 5087 Apr, [facility] [place] [facility] [address] [id number] [place] [address]- 9058 Apr, [facility] [place] [facility] [address] [id number] [place] [address]- 6255 Apr, [facility] [place] [facility] [address] [id number] [place] [address] 7046 Mar, [facility] [place] [facility] [address] [id number] [place] [address] 7002 Mar, [facility] [place] [facility] [address] [id number] [place] [address] Mar, [facility] [place] [facility] [address] [id number] [place] [address]- 8800 Mar, [facility] [place] [facility] [address] [id number] [place] [address]- 9287 Feb, [facility] [place] [facility] [address] [id number] [place] [address]- 4971 Feb, [facility] [place] [facility] [address] [id number] [place] [address]- 6331 Feb, [facility] [place] [facility] [address] [id number] [place] [address]- 3054 Feb, [facility] [place] [facility] [address] [id number] [place] [address]- 9134 Feb, [facility] [place] [facility] [address] [id number] [place] [address]- 7291 Feb, [facility] [place] [facility] [address] [id number] [place] [address]- 1392 Feb, [facility] [place] [facility] [address] [id number], [place] [address] 2541 Feb, [facility] [place] [facility] [address] [id number], [place] [address] 59[address] Jan, [facility] [place] [facility] [address] [id number] [place] [address] 25 Jan, 2013 [facility] [place] [facility] [address] [id number] [place] [address] Jan, [facility] [place] [facility] [address] [id number] [place] [address] Dec, [facility] [place] [facility] [address] [id number] [place] [address] 5264 Dec, [facility] [address] [id number] [place] [address] 7085 Nov, [facility] [address] [id number] [place] [address] 0[address] Nov, [facility] [address] [id number] [place] [address]- 5478 Nov, [facility] [address] [id number] [place] [address] 4939 Nov, [facility] [address] [id number] [place] [address] 7714 Oct, [facility] [address] [id number] [place] [address] 4420 Oct, [facility] [address] [id number] [place] [address]- 9604 Oct, [facility] [address] [id number] [place] [address] 3636 September, [facility] [address] [id number] [place] [address]- 0782 September, [facility] [address] [id number] [place] [address]- 9100 September, [facility] [address] [id number] [place] [address]- 6247 September, [facility] [address] [id number] [place] [address] 3103 Aug, [facility] [address] [id number] [place] [address]- 3541 Aug, [facility] [address] [id number] [place] [address] 2294 Jul, [facility] [address] [id number] [place] [address]- 6977 Jul, [facility] [address] [id number] [place] [address]- 4088 06 Jul, 2012 [facility] [place] [facility] [address] [id number] [place] [address]- 9010 05 Jul, 2012 [facility] [address] [id number] [place] [address]- 2387 04 Jul, 2012 [facility] [place] [facility] [address] [id number] [place] [address]- 6635 27 Jun, 2012 [facility] [address] [id number] [place] [address]- 1022 25 Jun, 2012 [facility] [address] [id number] [place] [address]- 6053 Jun, [facility] [address] [id number] [place] [address]- 5896 28 May, 2012 [facility] [address] [id number] [place] [address]- 7697 May, [facility] [address] [id number] [place] [address] 4167 May, [facility] [address] [id number] [place] [address]- 8526 28 Apr, 2012 [facility] [address] [id number] [place] [address]- 1747 28 Apr, 2012 [facility] [place] [facility] [address] [id number], [place] [address]- 7814 Apr, [facility] [place] [facility] [address] [id number] [place] [address]- 6738 19 Apr, 2012 [facility] [place] [facility] [address] [id number] [place] [address]- 7969 18 Apr, 2012 [facility] [place] [facility] [address] [id number] [place] [address] 18 Apr, 2012 [facility] [place] [facility] [address] [id number] [place] [address]- 1987 Apr, [facility] [place] [facility] [address] [id number] [place] [address]- 8861 Apr, [facility] [place] [facility] [address] [id number] [place] [address]- 5337 Mar, [facility] [place] [facility] [address] [id number] [place] [address]- 2515 Mar, [facility] [place] [facility] [address] [id number] [place] [address]- 4780 Mar, [facility] [place] [facility] [address] [id number] [place] [address]- 2400 Mar, [facility] [place] [facility] [address] [id number] [place] [address]- 3089 Mar, [facility] [place] [facility] [address] [id number] [place] [address]- 9958 Mar, [facility] [place] [facility] [address] [id number] [place] [address]- 5015 Mar, [facility] [place] [facility] [address] [id number] [place] [address]- 8903 Mar, [facility] [place] [facility] [address] [facility] [id number] [place] [address]- 9620 Mar, [facility] [place] [facility] [address] [id number] [place] [address]- 9058 Mar, [facility] [place] [facility] [address] [id number], [place] [address]- 4799 Feb, [facility] [place] [facility] [address] [id number] [place] [address]- 6411 Feb, [facility] [place] [facility] [address] [id number] [place] [address]- 6496 Feb, [facility] [place] [facility] [address] [id number], [place] [address]- 9160 Jan, [facility] [place] [facility] [address] [id number] [place] [address]- 9658 07 Jan, 2012 [facility] [place] [facility] [address] [id number] [place] [address]- 7965 Jan, [facility] [place] [facility] [address] [id number] [place] [address]- 0433 Dec, [facility] [place] [facility] [address] [id number] [place] [address]- 9499 Dec, [facility] [place] [facility] [address] [id number] [place] [address]- 5680 Dec, [facility] [place] [facility] [address] [id number] [place] [address]- 2921 Dec, [facility] [place] [facility] [address] [id number] [place] [address]- 8293 Dec, [facility] [place] [facility] [address] [id number] [place] [address]- 8385 Nov, [facility] [place] [facility] [address] [id number] [place] [address]- 6358 Nov, [facility] [place] [facility] [address] [id number] [place] [address]- 3953 Oct, [facility] [place] [facility] [address] [id number] [place] [address]- 1866 September, [facility] [place] [facility] [address] [id number] [place] [address]- 6903 September, [facility] [place] [facility] [address] [id number] [place] [address]- 2462 September, [facility] [place] [facility] [address] [id number] [place] [address]- 8446 September, [facility] [place] [facility] [address] [id number] [place] [address]- 6546 September, [facility] [place] [facility] [address] [id number] [place] [address]- 8286 13 Aug, 2011 [facility] [place] [facility] [address] [id number] [place] [address]- 6186 16 Jul, 2011 [facility] [place] [facility] [address] [id number] [place] [address]- 8926 15 Jul, 2011 [facility] [place] [facility] [address] [id number] [place] [address]- 9991 14 Jul, 2011 [facility] [place] [facility] [address] [id number] [place] [address]- 3348 14 Jul, 2011 [facility] [place] [facility] [address] [id number] [place] [address]- 4794 09 Jul, 2011 [facility] [place] [facility] [address] [id number] [place] [address]- 5640 09 Jul, 2011 [facility] [place] [facility] [address] [id number] [place] [address]- 0575 08 Jul, 2011 [facility] [place] [facility] [address] [id number] [place] [address]- 2870 05 Jul, 2011 [facility] [place] [facility] [address] [id number] [place] [address]- 8558 27 Jun, 2011 [facility] [place] [facility] [address] [id number] [place] [address]- 4026 16 Jun, 2011 [facility] [place] [facility] [address] [id number] [place] [address]- 3995 10 Jun, 2011 [facility] [place] [facility] [address] [id number] [place] [address]- 7493 May, [facility] [place] [facility] [address] [id number] [place] [address]- 2627 Apr, [facility] [place] [facility] [address] [id number] [place] [address]- 1316 05 Apr, 2011 [facility] [place] [facility] [address] [id number] [place] [address]- 1928 Mar, [facility] [place] [facility] [address] [id number] [place] [address]- 4014 08 Mar, 2011 [facility] [address] [id number] [place] [address]- 0938 Mar, [facility] [place] [facility] [address] [id number] [place] [address]- 5004 Feb, [facility] [place] [facility] [address] [id number] [place] [address]- 0335 Feb, [facility] [place] [facility] [address] [id number] [place] [address]- 4386 Feb, [facility] [address] [id number] [place] [address]- 4829 Apr, [facility] [place] [facility] [address] [id number] [place] [address]- 2827 Apr, [facility] [place] [facility] [address] [id number] [place] [address]- 7330 Mar, [facility] [place] [facility] [address] [id number] [place] [address]- 0091 Mar, [facility] [place] [facility] [address] [id number] [place] [address]- 7896 Mar, [facility] [place] [facility] [address] [id number] [place] [address]- 1910 Mar, [facility] [place] [facility] [address] [id number] [place] [address]- 8258 Mar, [facility] [place] [facility] [address] [id number] [place] [address]- 9160 Feb, [facility] [place] [facility] [address] [id number] [place] [address]- 4894 September, [facility] [place] [facility] [address] [id number] [place] [address]- 2276 Aug, [facility] [place] [facility] [address] [id number] [place] [address]- 9203 Apr, [facility] [place] [address], [place] [address]- 6024 Apr, [facility] [place] [address], [place] [address]- 2146 Mar, [facility] [place] [address], [place] [address]- 1476 Mar, [facility] [place] [id number] [place] [address]- 8835 Mar, [facility] [place] [address], [place] [address]- 7514 Feb, [facility] [place] [id number] [place] [address]- 7006 Jan, [facility] [place] [address] [id number], [place] [address]- 6589 Dec, [facility] [place] [address], [place] [address]- 8778 Nov, [facility] [place] [address], [place] [address]- 1115 Oct, [facility] [place] [address], [place] [address]- 4401 Apr, [facility] [place] [address], [place] [address]- 7304 Apr, [facility] [place] [address], [place] [address]- 4815 Apr, [facility] [place] [id number] [address]2 Feb, IMMUNIZATIONS No Known Immunizations SOCIAL HISTORY Never Assessed REASON FOR VISIT Cough Pt c/o cough for a long time, states that she has seen Aidan for same and has been given antibiotics which help symptoms for a short period of time TODD Mcwilliams PLAN OF CARE Activity Details Follow Up prn Reason: VITAL SIGNS Height 61 in 2017-08-07 Weight 156.6 lbs 2017-08-07 Temperature 96.9 degrees Fahrenheit 2017-08-07 Heart Rate 80 bpm 2017-08-07 Respiratory Rate 18 2017-08-07 BMI 29.59 kg/m2 2017-08-07 Blood pressure systolic 140 mmHg 2017-08-07 Blood pressure diastolic 80 mmHg 2017-08-07 MEDICATIONS Medication Instructions Dosage Frequency Start Date End Date Duration Status Requip XL 4 MG Orally Once a day 1 tablet 24h September, Active Pantoprazole Sodium 40MG Orally Once a day TAKE ONE TABLET BY MOUTH ONCE DAILY 24h 90 Active Albuterol Sulfate HFA 108 (90 Base) MCG/ACT Inhalation every 4 hrs 2 puffs as needed 4h September, Active Chlorpheniramine Maleate 8 mg 1 capsule by Oral route 2 times per day PRN Jan, Active Advair Diskus 250-50 mcg/dose INHALE ONE DOSE BY MOUTH IN THE MORNING AND ONE IN THE EVENING APPROXIMATELY 12 HOURS APART 30 Active [place] 10-325 MG Orally every 6 hrs 1 tablet as needed 6h Jul, 28 days Active Advair Diskus 250/50 INHALE ONE DOSE BY MOUTH IN THE MORNING AND ONE IN THE EVENING APPROXIMATELY 12 HOURS APART Active Mirapex 0.5 MG Orally Three times a day 1 tablet 8h Jan, Active Imipramine HCl 25 MG Orally Once a day 1 tablet at bedtime 24h Mar, 30 day(s) Active Combivent Respimat 20-100 MCG/ACT Inhalation Four times a day 1 puff 6h Mar, Active Tizanidine HCl 4MG Orally Three times a day 1 tablet as needed 8h 30 Active Glucometer 1 test blood sugar Nov, Active Atenolol 100MG Orally Once a day 1 tablet 24h 90 days Active Tessalon Perles 100 mg Orally Three times a day 1 capsule as needed 8h Jul, Active RESULTS No Results PROCEDURES Procedure Date Ordered Result Body Site CULTURE, BODY FLUID (STERILE) August 07, 2017 INSTRUCTIONS MEDICATIONS ADMINISTERED No Known Medications [...]
--- OUTSIDE RECORDS SUMMARY | 2017-12-12 00:48 | XMS REPORT ---
Author Author CEDRIC LAWLER Organization [facility] Address [address] [place] [address] Care Team Providers Care Double End Trimmer Name Role Phone CEDRIC LAWLER Unavailable PROBLEMS Type Condition ICD9-CM Code NVO87-EG Code Onset Dates Condition Status SNOMED Code Problem Nicotine dependence, uncomplicated, unspecified nicotine product type F17.200 Active 45009974 Problem Ab[address] CT lung screening R93.8 Active 114944572 Problem Mild persistent asthma without complication J45.30 Active 765332795 Problem Restless leg syndrome G25.81 Active 25407119 Problem Osteoarthritis of spine with radiculopathy, cervical region M47.22 Active 688856006 Problem RLS (restless legs syndrome) G25.81 Active 08925210 Problem Diabetes mellitus type 2, controlled E11.9 Active 726403312 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 915749193702872 Problem Hypertension, benign I10 Active 52822362 Problem Essential hypertension I10 Active 17686257 ALLERGIES No Information ENCOUNTERS Encounter Location Date Diagnosis [place] [address] 25558- 2872 Nov, Diabetes mellitus type 2, controlled E11.9 [place] [address] [place] [id number] [place] [address] 80950- 0112 Oct, [facility] [address] 07906- 6659 Oct, [place] [address] 41929- 4827 Oct, Skin tags, multiple acquired L91.8 [facility] [address] [place] [id number] [place] [address] 55897- 0497 Oct, [place] [address] 46250- 8949 Oct, Diabetes mellitus type 2, controlled E11.9 and Osteoarthritis of spine with radiculopathy, cervical region M47.22 [facility] [address] [id number] [place] [address] 29808- 8051 September, Osteoarthritis of spine with radiculopathy, cervical region M47.22 ; Coughing R05 ; Chronic pruritus L29.9 and Breast cancer screening Z12.31 [facility] [address] [place] [id number] [place] [address] 91358- 6123 September, Diabetes mellitus type 2, controlled E11.9 [facility] [address] [place] [id number] [place] [address] 10738 -5089 Jul, Chronic cough R05 [facility] [address] [id number] [place] [address] 25628- 3895 Jul, [facility] [address] [id number] [place] [address] 19749- 2707 Jul, Diabetes mellitus type 2, controlled E11.9 [facility] [id number] [place] [address] 01013- 4969 Jul, [facility] [address] [id number] [place] [address] 20055- 4002 Jul, [facility] [address] [address] [id number] [place] [address] 86619- 2465 Jun, [facility] [address] [id number] [place] [address] 05333- 5372 Jun, Diabetes mellitus type 2, controlled E11.9 [facility] [address] [id number] [place] [address] 21470- 0078 Jun, [facility] [address] [id number] [place] [address] 34671- 6508 May, [facility] [id number] [place] [address] 449271- 1350 May, Diabetes mellitus type 2, controlled E11.9 [place] [address] [id number] [place] [address] 88232- 7509 Apr, [place] [address] [id number] [place] [address] 66794- 7821 Apr, Pneumonia of right upper lobe due to infectious organism J18.1 [place] [address] [id number] [place] [address] 50340- 4961 Mar, [place] [address] 05366- 6442 Mar, [place] [address] [place] [id number] [place] [address] 41921- 9222 Mar, [place] [address] 85732- 2090 Mar, Coughing R05 and SOB (shortness of breath) R06.02 [place] [address] 83941- 7412 Mar, Diabetes mellitus type 2, controlled E11.9 ; Coughing R05 and SOB (shortness of breath) R06.02 [place] [address] [place] [id number] [place] [address] 36091- 1602 Feb, [place] [address] [id number] [place] [address] 22805- 4528 Feb, [place] [address] [place] [id number] [place] [address] 50472- 7367 Jan, Hypertension, benign I10 and RLS (restless legs syndrome) G25.81 [place] [address] [place] [id number] [place] [address] 98339- 6403 Jan, [place] [address] 10052- 2841 Dec, Pain in unspecified joint M25.50 and Mild persistent asthma without complication J45.30 [place] [address] 33366- 8057 Dec, [facility] [address] [address] [address] Dec, [address] lung screening R93.8 [facility] [id number] [place] [address] 70396- 4231 Dec, [facility] [id number] [place] [address] 90176- 2707 Nov, Screening for breast cancer Z12.31 [facility] [address] [place] [id number] [place] [address] 35231- 0079 Nov, [facility] [address] [place] [id number] [place] [address] 70271- 9301 Nov, Essential hypertension I10 [facility] [address] [place] [id number] [place] [address] 21886- 4536 Nov, Essential hypertension I10 [facility] [address] [place] [id number] [place] [address] 95720- 0988 Oct, Acute non-recurrent maxillary sinusitis J01.00 [facility] [id number] [place] [address] 75254- 7874 Oct, [facility] [address] [place] [id number] [place] [address] 00013- 7519 September, Acute non-recurrent maxillary sinusitis J01.00 [facility] [address] [place] [address] 51640 -7799 September, Low back pain M54.5 [facility] [address] [place] [address] 49205- 9183 September, [facility] [address] [place] [id number] [place] [address] 57260- 9461 Aug, Acute non-recurrent maxillary sinusitis J01.00 [facility] [address] [id number] Aug, Dental examination Z01.20 [facility] [address] [place] [address]- 7346 Aug, [facility] [address] [place] [id number] [place] [address] 82008- 5626 Aug, [facility] [address] [place] [id number] [place] [address] 81152- 1005 Aug, [facility] [address] [place] [id number] [place] [address] 13630- 3268 Aug, Acute sinusitis J01.90 [facility] [address] [place] [address] [id number] [place] [address] 92183- 4780 Jul, [facility] [address] [place] [id number] [place] [address] 29586- 3039 Jul, [facility] [address] [place] [id number] [place] [address] 63797- 3215 Jul, [facility] [address] [place] [id number] [place] [address] 75624- 3106 Jul, [facility] [address] [place] [id number] [place] [address] 05957- 7257 Jul, Frequent urination R35.0 and Acute cystitis with hematuria N30.01 [facility] [address] [place] [id number] [place] [address] 82390- 0486 Jul, [facility] [address] [place] [address] 44882- 7658 Jun, [facility] [address] [place] [id number] [place] [address] 26818- 9822 Jun, Acute sinusitis J01.90 [facility] [address] [place] [id number] [place] [address] 48196- 0743 Jun, Diabetes mellitus type 2, controlled E11.9 ; Cough R05 ; Acute non-recurrent maxillary sinusitis J01.00 and halfway (current) use of opiate analgesic Z79.891 [facility] [address] [place] [id number] [place] [address] 63643- 7578 May, [facility] [address] [address]- 5242 May, [facility] [address] [facility] [id number] [place] [address] 43436- 5468 May, [facility] [address] [address]- 6569 Apr, [facility] [address] [place] [id number] [place] [address] 55942- 9312 Apr, [facility] [address] [address]- 1483 Apr, [facility] [address] [address] -5713 Apr, Acute non-recurrent maxillary sinusitis J01.00 [facility] [address] [place] [id number] [place] [address] 14515- 1773 Apr, [facility] [address] [place] [id number] [place] [address] 10391- 1173 Feb, [facility] [address] [place] [id number] [place] [address] 50836- 9506 Feb, [facility] [address] [address]- 8582 Feb, [facility] [id number] [place] [address] 20056- 6483 Feb, [facility] [address] [address]- 7426 Feb, [facility] [address] [place] [id number] [place] [address] 99250- 3392 Feb, [facility] [address] [address]- 5313 15 Jan, 2016 RLS (restless legs syndrome) G25.81 ; Osteoarthritis of spine with radiculopathy, cervical region M47.22 ; Lumbar neuritis M54.16 and Left sciatic nerve pain M54.32 [facility] [address] [place] [id number] [place] [address] 90291- 9101 Jan, [facility] [address] [place] [id number] [place] [address] 09335- 4550 Dec, [facility] [address] [place] [id number] [place] [address] 80830- 7547 Nov, [facility] [address] [place] [id number] [place] [address] 58463- 0881 Nov, [facility] [address] [place] [id number] [place] [address] 46626- 6962 Nov, [facility] [address] [place] [id number] [place] [address] 95726- 5749 Nov, Restless leg syndrome G25.81 and Controlled type 2 diabetes mellitus without complication, without long-term current use of insulin E11.9 [facility] [address] [place] [id number] [place] [address] 73184- 1996 Nov, [facility] [address] [place] [id number] [place] [address] 45743- 1040 Oct, [facility] [address] [place] [id number] [place] [address] 94857- 5031 Oct, [facility] [address] [place] [id number] [place] [address] 09393- 9559 Oct, [facility] [address] [place] [id number] [place] [address] 68508- 3445 Oct, 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 lung screening R93.8 [facility] [address] [place] [id number] [place] [address] 43574- 4594 Oct, [facility] [address] [place] [id number] [place] [address] 54617- 7767 September, [facility] [address] [place] [id number] [place] [address] 81465- 4531 September, Physical exam, annual Z00.00 ; Nicotine dependence, uncomplicated, unspecified nicotine product type F17.200 ; Screening breast examination Z12.39 ; Restless leg syndrome G25.81 and Mild persistent asthma without complication J45.30 [facility] [address] [place] [id number] [place] [address] 23443- 1472 September, [facility] [address] 91680- 8469 September, [facility] [address] [place] [id number] [place] [address] 97824- 5552 Aug, [facility] [address] 80663- 1240 Jul, Dental examination Z01.20 and Dental caries K02.9 [place] [address] 93007- 3120 Jul, [facility] [address] 90007- 3783 Jul, Diabetes mellitus type 2, controlled E11.9 and Pain in unspecified joint M25.50 [place] [address] 60477- 6573 Jul, [facility] [address] [place] [id number] [place] [address] 43490- 7200 Jun, Dental examination Z01.20 [facility] [address] [place] [id number] [place] [address] 13818- 4401 May, [facility] [address] [place] [id number] [place] [address] 05453- 2265 May, [facility] [address] 99451- 3274 Apr, [facility] [address] [place] [id number] [place] [address] 00254- 3268 Mar, [facility] [address] 44360- 3496 Mar, Acute sinusitis J01.90 [facility] [address] [place] [id number] [place] [address] 21696- 6845 Feb, [facility] [address] [place] [id number] [place] [address] 54748- 4471 Jan, Flu vaccine need V04.81 [facility] [address] 66157- 6502 Jan, [facility] [address] [place] [id number] [place] [address] 18464- 3117 Jan, Pain in joint, site unspecified 719.40 [place] [address] 17456- 8940 Dec, Pain in joint, site unspecified 719.40 [place] [address] 20988- 7898 Dec, [facility] [address] [place] [id number] [place] [address] 72527- 6798 Dec, [facility] [address] [place] [id number] [place] [address] 09800- 2244 Dec, Sciatica 724.3 ; Restless legs syndrome [RLS] 333.94 and Encounter for smoking cessation counseling V65.42 [place] [address] [place] [id number] [place] [address] 51266- 2411 Dec, Nicotine dependence 305.1 [facility] [address] [place] [id number] [place] [address] 12619- 7597 Nov, [facility] [address] [place] [id number] [place] [address] 14313- 0828 Oct, [facility] [address] [place] [id number] [place] [address] 48751- 8728 Oct, [facility] [address] [place] [id number] [place] [address] 39340- 7300 September, [facility] [place] [facility] [address] [id number] [place] [address]- 0172 14 Aug, 2014 [facility] [place] [facility] [address] [id number] [place] [address]- 5771 Aug, [facility] [place] [facility] [address] [id number] [place] [address]- 7792 Jul, [facility] [place] [facility] [address] [id number] [place] [address]- 4862 Jul, [facility] [place] [facility] [address] [id number] [place] [address]- 1527 Jul, [facility] [place] [facility] [address] [id number] [place] [address]- 0193 Jun, [facility] [place] [facility] [address] [id number] [place] [address]- 8327 Jun, [facility] [place] [facility] [address] [id number] [place] [address]- 6574 Jun, [facility] [place] [facility] [address] [id number] [place] [address]- 5870 Jun, [facility] [place] [facility] [address] [id number] [place] [address]- 2635 May, [facility] [place] [facility] [address] [id number] [place] [address]- 1152 May, [facility] [place] [facility] [address] [id number] [place] [address]- 0162 May, [facility] [place] [facility] [address] [id number] [place] [address]- 0367 May, [facility] [place] [facility] [address] [id number] [place] [address]- 1879 May, [facility] [place] [facility] [address] [id number] [place] [address]- 9135 May, [facility] [place] [facility] [address] [id number] [place] [address]- 6694 May, [facility] [place] [facility] [address] [id number] [place] [address]- 0652 Apr, [facility] [place] [facility] [address] [id number] [place] 5990 Apr, [facility] [place] [facility] [address] [id number] [place] [address]- 9364 Apr, [facility] [place] [facility] [address] [id number] [place] [address]- 2280 Apr, [facility] [place] [facility] [address] [id number] [place] [address]- 5610 Apr, [facility] [place] [facility] [address] [id number] [place] [address]- 6575 Apr, [facility] [place] [facility] [address] [id number] [place] [address]- 2313 Apr, [facility] [place] [facility] [address] [id number] [place] [address]- 8546 Apr, [facility] [place] [facility] [address] [id number] [place] [address]- 9600 Apr, [facility] [place] [facility] [address] [id number] [place] [address]- 9474 Apr, [facility] [place] [facility] [address] [id number] [place] [address]- 9610 Mar, [facility] [place] [facility] [address] [id number] [address]- 0165 Mar, [facility] [place] [facility] [address] [id number] [place] [address]- 5274 Mar, [facility] [place] [facility] [address] [id number] [place] [address]- 5919 Mar, [facility] [place] [facility] [address] [id number] [place] [address]- 7231 Mar, [facility] [place] [facility] [address] [id number] [place] [address]- 2572 Mar, [facility] [place] [facility] [address] [id number] [place] [address]- 8514 Feb, [facility] [place] [facility] [address] [id number] [place] [address]- 8890 15 Feb, 2014 [facility] [place] [facility] [address] [id number] [place] [address]- 4051 Feb, [facility] [place] [facility] [address] [id number] [place] [address]- 9711 Feb, [facility] [place] [facility] [address] [id number] [place] [address]- 2760 Feb, [facility] [place] [facility] [address] [id number] [place] [address]- 6335 Feb, [facility] [place] [facility] [address] [id number] [place] [address]- 7672 Jan, [facility] [place] [facility] [address] [id number] [place] [address]- 9738 Jan, [facility] [place] [facility] [address] [id number] [place] [address]- 3572 Jan, [facility] [place] [facility] [address] [id number] [place] [address]- 5321 Jan, [facility] [place] [facility] [address] [id number] [place] [address]- 4293 Dec, [facility] [place] [facility] [address] [id number] [place] [address]- 0088 Dec, [facility] [place] [facility] [address] [id number] [place] [address]- 3683 Dec, [facility] [place] [facility] [address] [id number] [place] [address]- 7352 Dec, [facility] [place] [facility] [address] [id number] [place] [address]- 5839 Dec, [facility] [place] [facility] [address] [id number] [place] [address]- 2796 16 Nov, 2013 [facility] [place] [facility] [address] [id number] [place] [address]- 0116 16 Nov, 2013 [facility] [place] [facility] [address] [id number] [place] [address]- 0014 Nov, [facility] [place] [facility] [address] [id number] [place] [address]- 4446 Nov, [facility] [place] [facility] [address] [id number] [place] [address]- 5540 Nov, [facility] [place] [facility] [address] [id number] [place] [address]- 9493 Nov, [facility] [place] [facility] [address] [id number] [place] [address]- 7778 Oct, [facility] [place] [facility] [address] [id number] [place] [address]- 3397 Oct, [facility] [place] [facility] [address] [id number] [place] [address]- 6789 September, [facility] [place] [facility] [address] [id number] [place] [address]- 8702 September, [facility] [place] [facility] [address] [id number] [place] [address]- 4435 September, [facility] [place] [facility] [address] [id number] [place] [address]- 5578 September, [facility] [place] [facility] [address] [id number] [place] [address]- 0590 Aug, [facility] [place] [facility] [address] [id number] [place] [address]- 2641 Aug, [facility] [place] [facility] [address] [id number] [place] 3990 17 Jul, 2013 [facility] [place] [facility] [address] [id number] [place] [address]- 1550 17 Jul, 2013 [facility] [address] [id number] [place] [address]- 3548 Jul, [facility] [place] [facility] [address] [id number] [place] [address]- 7856 14 Jul, 2013 [facility] [place] [facility] [address] [id number] [place] [address] Jun, [facility] [place] [facility] [address] [id number] [place] [address] Jun, [facility] [place] [facility] [address] [id number] [place] [address] Jun, [facility] [place] [facility] [address] [id number] [place] [address] Jun, [facility] [place] [facility] [address] [id number] [place] [address] May, [facility] [place] [facility] [address] [id number] [place] [address] May, [facility] [place] [facility] [address] [id number] [place] [address] May, [facility] [place] [facility] [address] [id number] [place] [address] May, [facility] [place] [facility] [address] [id number] [place] [address] Apr, [facility] [place] [facility] [address] [id number] [place] [address] Apr, [facility] [place] [facility] [address] [id number] [place] [address] Apr, [facility] [place] [facility] [address] [id number] [place] [address] Mar, [facility] [place] [facility] [address] [id number] [place] [address] Mar, [facility] [place] [facility] [address] [id number] [place] [address] Mar, [facility] [place] [facility] [address] [id number] [place] [address] Mar, [facility] [place] [facility] [address] [id number] [place] [address] Feb, [facility] [place] [facility] [address] [id number] [place] [address] Feb, [facility] [place] [facility] [address] [id number] [place] [address] Feb, [facility] [place] [facility] [address] [id number] [place] [address] Feb, [facility] [place] [facility] [address] [id number] [place] [address] Feb, [facility] [place] [facility] [address] [id number] [place] [address]- [address] Feb, [facility] [place] [facility] [address] [id number] [place] [address] Feb, [facility] [place] [facility] [address] [id number] [place] [address] Feb, [facility] [place] [facility] [address] [id number] [place] [address] Jan, [facility] [place] [facility] [address] [id number] [place] [address] Jan, [facility] [place] [facility] [address] [id number] [place] [address] Jan, [facility] [place] [facility] [address] [id number] [place] [address] Dec, [facility] [place] [facility] [address] [id number] [place] [address] Dec, [facility] [place] [facility] [address] [id number] [place] [address] Nov, [facility] [address] [id number] [place] [address] Nov, [facility] [place] [facility] [address] [id number] [place] [address] Nov, [facility] [place] [facility] [address] [id number] [place] [address] Nov, [facility] [place] [facility] [address] [id number] [place] [address] Oct, [facility] [place] [facility] [address] [id number] [place] [address] Oct, [facility] [place] [facility] [address] [id number] [place] [address] Oct, [facility] [place] [facility] [address] [id number] [place] [address] September, [facility] [place] [facility] [address] [id number] [place] [address] September, [facility] [address] [id number] [place] [address] September, [facility] [place] [facility] [address] [id number] [place] [address] September, [facility] [place] [facility] [address] [id number] [place] [address] Aug, [facility] [place] [facility] [address] [id number] [place] [address] Aug, [facility] [place] [facility] [address] [id number] [place] [address] Jul, [facility] [place] [facility] [address] [id number] [place] [address] Jul, [facility] [place] [facility] [address] [id number] [place] [address] Jul, [facility] [place] [facility] [address] [id number] [place] [address]46 05 Jul, 2012 [facility] [address] [id number] [place] [address] Jul, [facility] [address] [id number] [place] [address] 25[address] Jun, [facility] [address] [id number] [place] [address] 8536 Jun, [facility] [address] [id number] [place] [address] Jun, [facility] [address] [id number] [place] [address] May, [facility] [address] [id number] [place] [address] May, [facility] [address] [id number] [place] [address]207 May, [facility] [address] [id number] [place] [address] Apr, [facility] [address] [id number] [place] [address] Apr, [facility] [address] [id number] [place] [address] 8175 Apr, [facility] [address] [id number] [place] [address] 2546 Apr, [facility] [address] [id number] [place] [address] Apr, [facility] [address] [id number] [place] [address] Apr, [facility] [address] [id number] [place] [address]46 Apr, [facility] [address] [id number] [place] [address] Apr, [facility] [place] [facility] [address] [id number] [place] [address]872 Mar, [facility] [place] [facility] [address] [id number] [place] [address] 68[address] Mar, [facility] [place] [facility] [address] [id number] [place] [address] 87[address] Mar, [facility] [place] [facility] [address] [id number] [place] [address] Mar, [facility] [place] [facility] [address] [id number] [place] [address] Mar, [facility] [place] [facility] [address] [id number] [place] [address]397 Mar, [facility] [place] [facility] [address] [facility] [id number] [place] [address] Mar, [facility] [place] [facility] [address] [id number] [address] Mar, [facility] [place] [facility] [address] [id number] [place] [address] Mar, [facility] [place] [facility] [address] [id number] [address] Mar, [facility] [place] [facility] [address] [id number] [address] Feb, [facility] [place] [facility] [address] [id number] [address] Feb, [facility] [place] [facility] [address] [id number] [place] [address] Feb, [facility] [place] [facility] [address] [id number] [address] Jan, [facility] [place] [facility] [address] [id number] [place] [address] Jan, [facility] [place] [facility] [address] [id number] [place] [address]83 Jan, [facility] [place] [facility] [address] [id number] [place] [address] Dec, [facility] [place] [facility] [address] [id number] [place] [address] Dec, [facility] [place] [facility] [address] [id number] [place] [address] 9663 Dec, [facility] [place] [facility] [address] [id number] [place] [address] Dec, [facility] [place] [facility] [address] [id number] [place] [address] Dec, [facility] [place] [facility] [address] [id number] [place] [address] 2631 Nov, [facility] [place] [facility] [address] [id number] [place] [address] 3413 Nov, [facility] [place] [facility] [address] [id number] [place] [address]496 Oct, [facility] [place] [facility] [address] [id number] [place] [address] September, [facility] [place] [facility] [address] [id number] [place] [address]246 September, [facility] [place] [facility] [address] [id number] [place] [address]- 9778 September, [facility] [place] [facility] [address] [id number] [place] [address] 2540 September, [facility] [place] [facility] [address] [id number] [place] [address]- 1731 September, [facility] [place] [facility] [address] [id number] [place] [address]- 4946 Aug, [facility] [place] [facility] [address] [id number] [place] [address] Jul, [facility] [place] [facility] [address] [id number] [place] [address]- [address]198 15 Jul, 2011 [facility] [place] [facility] [address] [id number] [place] [address]- [address]86 14 Jul, 2011 [facility] [place] [facility] [address] [id number] [place] [address]- 3836 14 Jul, 2011 [facility] [place] [facility] [address] [id number] [place] [address]- 2507 09 Jul, 2011 [facility] [place] [facility] [address] [id number] [place] [address]- 2894 09 Jul, 2011 [facility] [place] [facility] [address] [id number] [place] [address]- [address]153 08 Jul, 2011 [facility] [place] [facility] [address] [id number] [place] [address]- 1176 05 Jul, 2011 [facility] [place] [facility] [address] [id number] [place] [address]- 8353 27 Jun, 2011 [facility] [place] [facility] [address] [id number] [place] [address]- 1796 16 Jun, 2011 [facility] [place] [facility] [address] [id number] [place] [address]- 3815 Jun, [facility] [place] [facility] [address] [id number] [place] [address]- 9241 May, [facility] [place] [facility] [address] [id number] [place] [address]- 6174 Apr, [facility] [place] [facility] [address] [id number] [place] [address]- 8864 Apr, [facility] [place] [facility] [address] [id number] [place] [address]- 2686 Mar, [facility] [place] [facility] [address] [id number] [place] [address]- 8064 Mar, [facility] [place] [facility] [address] [id number] [address] 96[address] Mar, [facility] [place] [facility] [address] [id number] [place] [address]- 0787 Feb, [facility] [place] [facility] [address] [id number] [place] [address]- 9276 Feb, [facility] [place] [facility] [address] [id number] [place] [address]- 5479 Feb, [facility] [place] [facility] [address] [id number] [place] [address]- 9999 Apr, [facility] [place] [facility] [address] [id number] [place] [address]- 8390 Apr, [facility] [place] [facility] [address] [id number] [place] [address]- 9637 Mar, [facility] [place] [facility] [address] [id number] [place] [address]- 4208 Mar, [facility] [place] [facility] [address] [id number] [place] [address]- 1063 Mar, [facility] [place] [facility] [address] [id number] [place] [address]- 7044 Mar, [facility] [place] [facility] [address] [id number] [place] [address]- 8167 Mar, [facility] [place] [facility] [address] [id number] [place] [address]- 8620 Feb, [facility] [place] [facility] [address] [id number] [address]- 8449 September, [facility] [place] [facility] [address] [id number] [place] [address]- 4164 Aug, [facility] [place] [facility] [address] [id number] [place] [address]- 1849 22 Apr, 2009 [facility] [place] [facility] [address] [id number] [place] [address]- 4611 15 Apr, 2009 [facility] [place] [facility] [id number] [address] Mar, [facility] [id number] [address] 9048 Mar, [facility] [id number] [address]- 6989 Mar, [facility] [id number] [address]- 6916 Feb, [facility] [id number] [address]- [address] Jan, [facility] [id number] [place] [address]- 3736 Dec, [facility] [id number] [address]- 1748 Nov, [facility] [id number] [place] [address]- 1499 Oct, [facility] [id number] [address]- [address]15 Apr, [facility] [id number] [address] Apr, [facility] [id number] [address]- 8687 Apr, [facility] [id number] [address]- 3006 Feb, IMMUNIZATIONS No Known Immunizations SOCIAL HISTORY Never Assessed REASON FOR VISIT med refill PLAN OF CARE VITAL SIGNS MEDICATIONS Medication [...]
--- OUTSIDE RECORDS SUMMARY | 2017-12-12 00:49 | XMS REPORT ---
Author Author MELO ESQUIVEL Organization [facility] Address [address] [place] [address] Care Team Providers Care Loading Checker Name Role Phone MELO ESQUIVEL Unavailable PROBLEMS Type Condition ICD9-CM Code SZD24-AM Code Onset Dates Condition Status SNOMED Code Problem Nicotine dependence, uncomplicated, unspecified nicotine product type F17.200 Active 61560607 Problem Ab[address] CT lung screening R93.8 Active 041517644 Problem Mild persistent asthma without complication J45.30 Active 581676419 Problem Restless leg syndrome G25.81 Active 70279561 Problem Osteoarthritis of spine with radiculopathy, cervical region M47.22 Active 441438607 Problem RLS (restless legs syndrome) G25.81 Active 30668686 Problem Diabetes mellitus type 2, controlled E11.9 Active 491701921 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 [id number] Problem Hypertension, benign I10 Active 03933660 Problem Essential hypertension I10 Active 92761892 ALLERGIES No Information ENCOUNTERS Encounter Location Date Diagnosis [place] [id number] [place] [address] 79912- 1773 Nov, Diabetes mellitus type 2, controlled E11.9 [facility] [id number] [place] [address] 63285- 7824 Oct, [place] [id number] [place] [address] 05274- 4100 Oct, [place] [address] 72313- 3332 Oct, Skin tags, multiple acquired L91.8 [facility] [id number] [place] [address] 60657- 2310 Oct, [facility] [address] 51675- 2667 Oct, Diabetes mellitus type 2, controlled E11.9 and Osteoarthritis of spine with radiculopathy, cervical region M47.22 [facility] [id number] [place] [address] 026335- 3797 September, Osteoarthritis of spine with radiculopathy, cervical region M47.22 ; Coughing R05 ; Chronic pruritus L29.9 and Breast cancer screening Z12.31 [facility] [id number] [place] [address] 55185- 5477 September, Diabetes mellitus type 2, controlled E11.9 [facility] [id number] [place] [address] 91836 -3736 Jul, Chronic cough R05 [facility] [id number] [place] [address] 11217- 2808 Jul, [facility] [id number] [place] [address] 78005- 4653 Jul, Diabetes mellitus type 2, controlled E11.9 [facility] [id number] [address]- 9979 Jul, [facility] [id number] [place] [address] 62682- 1710 Jul, [facility] [id number] [place] [address] 90314- 3897 Jun, [facility] [id number] [place] [address] 39796- 1455 Jun, Diabetes mellitus type 2, controlled E11.9 [facility] [address] 3894 Jun, [facility] [id number] [place] [address] 619424- 6180 May, [facility] [address] 0894 May, Diabetes mellitus type 2, controlled E11.9 [place] [id number] [place] [address] 62464- 8961 Apr, [place] [address] 50297- 4516 Apr, Pneumonia of right upper lobe due to infectious organism J18.1 [place] [address] 25431- 5152 Mar, [place] [address] 60632- 2632 Mar, [place] [address] 55097- 0053 Mar, [place] [address] 16041- 7341 Mar, Coughing R05 and SOB (shortness of breath) R06.02 [place] [address] 74505- 4715 Mar, Diabetes mellitus type 2, controlled E11.9 ; Coughing R05 and SOB (shortness of breath) R06.02 [place] [address] 31440- 6058 Feb, [place] [id number] [place] [address] 27133- 4000 Feb, [place] [id number] [place] [address] 74292- 3374 Jan, Hypertension, benign I10 and RLS (restless legs syndrome) G25.81 [place] [id number] [place] [address] 66480- 3269 Jan, [place] [address] 28380- 4610 Dec, Pain in unspecified joint M25.50 and Mild persistent asthma without complication J45.30 [place] [address] 29933- 9438 Dec, [facility] [address], [place] [address]- [address] Dec, [address] lung screening R93.8 [facility] [id number] [place] [address] 10325- 4984 Dec, [facility] [id number] [place] [address] 73629- 1136 Nov, Screening for breast cancer Z12.31 [facility] [id number] [place] [address] 91378- 3325 Nov, [facility] [id number] [place] [address] 56087- 0256 Nov, Essential hypertension I10 [facility] [id number] [place] [address] 65410- 7999 Nov, Essential hypertension I10 [facility] [id number] [place] [address] 24088- 6501 Oct, Acute non-recurrent maxillary sinusitis J01.00 [facility] [id number] [place] [address] 91668- 3920 Oct, [facility] [id number] [place] [address] 57427- 8420 September, Acute non-recurrent maxillary sinusitis J01.00 [facility] [id number] [place] [address] 23448 -7026 September, Low back pain M54.5 [facility] [address] [place] [address] 41213- 7756 September, [facility] [id number] [place] [address] 29889- 5080 Aug, Acute non-recurrent maxillary sinusitis J01.00 [facility] [address] [id number] [id number] Aug, Dental examination Z01.20 [facility] [address], [place] [address]- 4879 Aug, [facility] [id number] [place] [address] 73805- 9814 Aug, [facility] [id number] [place] [address] 92304- 1234 Aug, [facility] [id number] [place] [address] 79104- 5630 Aug, Acute sinusitis J01.90 [facility] [id number] [place] [address] 40611- 9967 Jul, [facility] [id number] [place] [address] 88090- 0717 Jul, [facility] [id number] [place] [address] 93396- 6197 Jul, [facility] [id number] [place] [address] 97560- 5339 Jul, [facility] [id number] [place] [address] 18145- 7012 Jul, Frequent urination R35.0 and Acute cystitis with hematuria N30.01 [facility] [id number] [place] [address] 49746- 8251 Jul, [facility] [id number] [place] [address] 93579- 0164 Jun, [facility] [id number] [place] [address] 45729- 5953 Jun, Acute sinusitis J01.90 [facility] [id number] [place] [address] 74844- 4571 Jun, Diabetes mellitus type 2, controlled E11.9 ; Cough R05 ; Acute non-recurrent maxillary sinusitis J01.00 and 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 [facility] [id number] [place] [address] 13225- 1926 May, [facility] [address], [place] [address]- 7758 May, [facility] [address] 8278 May, [facility] [address], [place] [address]- 8699 Apr, [facility] [id number] [place] [address] 14825- 2486 Apr, [facility] [address] [place] [address] 11137- 2417 Apr, [facility] [address], [place] [address] -3462 Apr, Acute non-recurrent maxillary sinusitis J01.00 [facility] [address] [place] [address] 57971- 5135 Apr, [facility] [address], [place] [address]- 3650 Feb, [facility] [address], [place] [address]- 1341 Feb, [facility] [address], [place] [address]- 8710 Feb, [facility] [address], [place] [address]- 5613 Feb, [facility] [address], [place] [address]- 0795 Feb, [facility] [address] [place] [address] 45675- 0221 Feb, [facility] [address], [place] [address]- 6099 15 Jan, 2016 RLS (restless legs syndrome) G25.81 ; Osteoarthritis of spine with radiculopathy, cervical region M47.22 ; Lumbar neuritis M54.16 and Left sciatic nerve pain M54.32 [facility] [id number] [place] [address] 33800- 0785 Jan, [facility] [id number] [place] [address] 33260- 4813 Dec, [facility] [id number] [place] [address] 00433- 8483 Nov, [facility] [id number] [place] [address] 26494- 4993 Nov, [facility] [id number] [place] [address] 09688- 2387 Nov, [facility] [id number] [place] [address] 05113- 2945 Nov, Restless leg syndrome G25.81 and Controlled type 2 diabetes mellitus without complication, without long-term current use of insulin E11.9 [facility] [id number] [place] [address] 40461- 9803 Nov, [facility] [id number] [place] [address] 83471- 5162 Oct, [facility] [id number] [place] [address] 35014- 2914 Oct, [facility] [id number] [place] [address] 16791- 1044 Oct, [facility] [id number] [place] [address] 44180- 0727 Oct, 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 lung screening R93.8 [facility] [id number] [place] [address] 30461- 5181 Oct, [facility] [id number] [place] [address] 50009- 0414 September, [facility] [id number] [place] [address] 06524- 7257 September, Physical exam, annual Z00.00 ; Nicotine dependence, uncomplicated, unspecified nicotine product type F17.200 ; Screening breast examination Z12.39 ; Restless leg syndrome G25.81 and Mild persistent asthma without complication J45.30 [facility] [address], [place] [address]- 6013 September, [facility] [id number] [place] [address] 61904- 8625 September, [facility] [id number] [place] [address] 91079- 0580 Aug, [facility] [id number] [place] [address] 12436- 0594 Jul, Dental examination Z01.20 and Dental caries K02.9 [place] [id number] [place] [address] 33150- 6804 Jul, [facility] [id number] [place] [address] 07049- 9605 Jul, Diabetes mellitus type 2, controlled E11.9 and Pain in unspecified joint M25.50 [facility] [id number] [place] [address] 58381- 9710 Jul, [facility] [id number] [place] [address] 89433- 8664 Jun, Dental examination Z01.20 [facility] [id number] [place] [address] 08770- 2752 May, [facility] [id number] [place] [address] 48878- 4678 May, [facility] [id number] [place] [address] 73946- 5893 Apr, [facility] [id number] [place] [address] 94600- 7568 Mar, [facility] [id number] [place] [address] 72719- 3829 Mar, Acute sinusitis J01.90 [facility] [id number] [place] [address] 34320- 9916 Feb, [facility] [id number] [place] [address] 90629- 0944 Jan, Flu vaccine need V04.81 [facility] [id number] [place] [address] 51200- 1697 Jan, [facility] [id number] [place] [address] 89786- 1045 Jan, Pain in joint, site unspecified 719.40 [place] [id number] [place] [address] 23164- 7028 Dec, Pain in joint, site unspecified 719.40 [place] [id number] [place] [address] 71864- 4898 Dec, [facility] [id number] [place] [address] 33909- 3338 Dec, [facility] [id number] [place] [address] 01095- 2737 Dec, Sciatica 724.3 ; Restless legs syndrome [RLS] 333.94 and Encounter for smoking cessation counseling V65.42 [place] [id number] [place] [address] 33240- 2529 Dec, Nicotine dependence 305.1 [facility] [id number] [place] [address] 11743- 9266 Nov, [facility] [id number] [place] [address] 98415- 8317 Oct, [facility] [id number] [place] [address] 52853- 3977 Oct, [facility] [id number] [place] [address] 46139- 9730 September, [facility] [place] [facility] [address] [id number] [place] [address]- 8672 Aug, [facility] [place] [facility] [address] [id number] [place] [address]- 8580 Aug, [facility] [place] [facility] [address] [id number] [place] [address]- 1476 Jul, [facility] [place] [facility] [address] [id number] [place] [address]- 7995 Jul, [facility] [place] [facility] [address] [id number] [place] [address]- 4769 Jul, [facility] [place] [facility] [address] [id number] [place] [address]- 0558 Jun, [facility] [place] [facility] [address] [id number] [place] [address]- 0979 Jun, [facility] [place] [facility] [address] [id number] [place] [address]- 9624 Jun, [facility] [place] [facility] [address] [id number] [place] [address]- 6616 Jun, [facility] [place] [facility] [address] [id number] [place] [address]- 6583 May, [facility] [place] [facility] [address] [id number] [place] [address]- 8345 May, [facility] [place] [facility] [address] [id number] [place] [address]- 6405 May, [facility] [place] [facility] [address] [id number] [place] [address]- 9766 May, [facility] [place] [facility] [address] [id number] [place] [address]- 9106 May, [facility] [place] [facility] [address] [id number] [place] [address]- 0628 May, [facility] [place] [facility] [address] [id number], [place] [address]- 8131 May, [facility] [place] [facility] [address] [id number] [place] [address]- 5165 Apr, [facility] [place] [facility] [address] [id number] [place] [address]- 6387 Apr, [facility] [place] [facility] [address] [id number] [place] [address]- 7510 Apr, [facility] [place] [facility] [address] [id number] [place] [address]- 7542 Apr, [facility] [place] [facility] [address] [id number] [place] [address]- 1785 Apr, [facility] [place] [facility] [address] [id number] [place] [address]- 0522 Apr, [facility] [place] [facility] [address] [facility] [id number] [place] [address]- 6508 Apr, [facility] [place] [facility] [address] [id number] [place] [address]- 2392 Apr, [facility] [place] [facility] [address] [id number] [place] [address]- 9423 Apr, [facility] [place] [facility] [address] [facility] [id number] [place] [address]- 3354 Apr, [facility] [place] [facility] [address] [id number] [place] [address]- 5005 Mar, [facility] [place] [facility] [address] [id number] [place] [address]- 0157 Mar, [facility] [place] [facility] [address] [id number] [place] [address]- 6947 Mar, [facility] [place] [facility] [address] [id number] [place] [address]- 5011 Mar, [facility] [place] [facility] [address] [facility] [id number] [place] [address]- 1029 Mar, [facility] [place] [facility] [address] [id number] [place] [address]- 2760 Mar, [facility] [place] [facility] [address] [id number] [place] [address]- 1061 Feb, [facility] [place] [facility] [address] [id number] [place] [address]- 6646 Feb, [facility] [place] [facility] [address] [id number] [place] [address]- 4713 Feb, [facility] [place] [facility] [address] [id number] [place] [address]- 1722 Feb, [facility] [place] [facility] [address] [id number] [place] [address]- 8668 Feb, [facility] [place] [facility] [address] [id number] [place] [address]- 9899 Feb, [facility] [place] [facility] [address] [id number] [place] [address]- 1766 Jan, [facility] [place] [facility] [address] [id number] [place] [address]- 1599 Jan, [facility] [place] [facility] [address] [id number] [place] [address]- 4718 Jan, [facility] [place] [facility] [address] [id number] [place] [address]- 9135 Jan, [facility] [place] [facility] [address] [id number] [place] [address]- 5048 Dec, [facility] [place] [facility] [address] [id number] [place] [address]- 6793 Dec, [facility] [place] [facility] [address] [id number] [place] [address]- 1377 Dec, [facility] [place] [facility] [address] [id number] [place] [address]- 8524 Dec, [facility] [place] [facility] [address] [id number] [place] [address]- 0195 Dec, [facility] [place] [facility] [address] [id number] [place] [address]- 1577 16 Nov, 2013 [facility] [place] [facility] [address] [id number] [place] [address]- 0701 16 Nov, 2013 [facility] [place] [facility] [address] [id number] [place] [address] 15 Nov, 2013 [facility] [place] [facility] [address] [id number] [place] [address] 15 Nov, 2013 [facility] [place] [facility] [address] [id number] [place] [address] Nov, [facility] [place] [facility] [address] [id number] [place] [address] Nov, [facility] [place] [facility] [address] [id number] [place] [address] Oct, [facility] [place] [facility] [address] [id number] [place] [address] Oct, [facility] [place] [facility] [address] [id number] [place] [address] September, [facility] [place] [facility] [address] [id number] [place] [address] September, [facility] [place] [facility] [address] [id number] [place] [address] September, [facility] [place] [facility] [address] [id number] [place] [address]- [address] September, [facility] [place] [facility] [address] [id number] [place] [address] Aug, [facility] [place] [facility] [address] [id number] [place] [address] Aug, [facility] [place] [facility] [address] [id number] [place] [address] 17 Jul, 2013 [facility] [place] [facility] [address] [id number] [place] [address]- [address] 17 Jul, 2013 [facility] [place] [facility] [address] [id number] [place] [address]- [address] 14 Jul, 2013 [facility] [place] [facility] [address] [id number] [place] [address] 14 Jul, 2013 [facility] [place] [facility] [address] [id number] [place] [address] Jun, [facility] [place] [facility] [address] [id number] [place] [address]- [address] Jun, [facility] [place] [facility] [address] [id number] [place] [address]- [address] Jun, [facility] [place] [facility] [address] [id number] [place] [address]- [address] Jun, [facility] [place] [facility] [address] [id number] [place] [address] May, [facility] [place] [facility] [address] [id number] [place] [address] May, [facility] [place] [facility] [address] [id number] [place] [address]- [address] May, [facility] [place] [facility] [address] [id number] [place] [address]- [address] May, [facility] [place] [facility] [address] [id number] [place] [address] Apr, [facility] [place] [facility] [address] [id number] [place] [address]- [address] Apr, [facility] [place] [facility] [address] [id number] [place] [address] Apr, [facility] [place] [facility] [address] [id number] [place] [address] Mar, [facility] [place] [facility] [address] [id number] [place] [address] Mar, [facility] [place] [facility] [address] [id number] [place] [address] Mar, [facility] [place] [facility] [address] [id number] [place] [address] Mar, [facility] [place] [facility] [address] [id number] [place] [address] Feb, [facility] [place] [facility] [address] [id number] [place] [address] Feb, [facility] [place] [facility] [address] [id number] [place] [address] Feb, [facility] [place] [facility] [address] [id number] [place] [address] Feb, [facility] [place] [facility] [address] [id number] [place] [address] Feb, [facility] [place] [facility] [address] [id number], [place] [address] Feb, [facility] [place] [facility] [address] [id number] [place] [address] Feb, [facility] [place] [facility] [address] [id number], [place] [address] Feb, [facility] [place] [facility] [address] [id number], [place] [address] Jan, [facility] [place] [facility] [address] [id number], [place] [address] Jan, [facility] [place] [facility] [address] [id number], [place] [address] Jan, [facility] [place] [facility] [address] [id number], [place] [address] Dec, [facility] [place] [facility] [address] [id number], [place] [address] Dec, [facility] [place] [facility] [address] [id number], [place] [address] Nov, [facility] [address] [id number] [place] [address] Nov, [facility] [place] [facility] [address] [id number] [place] [address] Nov, [facility] [address] [id number] [place] [address] Nov, [facility] [address] [id number] [place] [address] 9[address] Oct, [facility] [address] [id number] [place] [address] Oct, [facility] [address] [id number] [place] [address] Oct, [facility] [address] [id number] [place] [address] 40[address] September, [facility] [address] [id number] [place] [address] September, [facility] [address] [id number] [place] [address] 57[address] September, [facility] [address] [id number] [place] [address] [address] September, [facility] [address] [id number] [place] [address] 28[address] Aug, [facility] [place] [facility] [address] [id number] [place] [address] 3798 Aug, [facility] [place] [facility] [address] [id number] [place] [address] 8949 Jul, [facility] [place] [facility] [address] [id number] [place] [address] 89[address] Jul, [facility] [place] [facility] [address] [id number] [place] [address]- 5582 Jul, [facility] [place] [facility] [address] [id number] [place] [address]- [address] 05 Jul, 2012 [facility] [address] [id number] [place] [address] Jul, [facility] [place] [facility] [address] [id number] [place] [address]226 Jun, [facility] [place] [facility] [address] [id number] [place] [address] 1126 Jun, [facility] [place] [facility] [address] [id number] [place] [address] 9835 Jun, [facility] [place] [facility] [address] [id number] [place] [address] May, [facility] [address] [id number] [place] [address] May, [facility] [address] [id number] [place] [address] 7036 May, [facility] [address] [id number] [place] [address] 3218 Apr, [facility] [address] [id number] [place] [address] 46[address] Apr, [facility] [place] [facility] [address] [id number] [place] [address] Apr, [facility] [place] [facility] [address] [id number] [place] [address] 2586 Apr, [facility] [place] [facility] [address] [id number] [place] [address] 50[address] Apr, [facility] [place] [facility] [address] [id number] [place] [address] 4921 Apr, [facility] [place] [facility] [address] [id number] [place] [address] 8541 Apr, [facility] [place] [facility] [address] [id number] [place] [address] 29[address] Apr, [facility] [place] [facility] [address] [id number] [place] [address] 9177 Mar, [facility] [place] [facility] [address] [id number] [place] [address]- 9397 Mar, [facility] [place] [facility] [address] [facility] [id number] [place] [address] 9655 Mar, [facility] [place] [facility] [address] [id number] [place] [address] 8619 Mar, [facility] [place] [facility] [address] [id number] [place] [address]- 1812 Mar, [facility] [place] [facility] [address] [id number] [place] [address]- 2875 Mar, [facility] [place] [facility] [address] [facility] [id number] [place] [address]- 0741 Mar, [facility] [place] [facility] [address] [id number], [place] [address] 8799 Mar, [facility] [place] [facility] [address] [id number], [place] [address]- 65[address] Mar, [facility] [place] [facility] [address] [id number] [place] [address]- 8870 Mar, [facility] [place] [facility] [address] [id number], [place] [address] 68[address] Feb, [facility] [place] [facility] [address] [id number], [place] [address] 2769 Feb, [facility] [place] [facility] [address] [id number], [place] [address] 7549 Feb, [facility] [place] [facility] [address] [facility] [id number], [place] [address]- 9698 Jan, [facility] [place] [facility] [address] [facility] [id number], [place] [address]- 3707 Jan, [facility] [place] [facility] [address] [id number] [place] [address]- 4175 Jan, [facility] [address] [id number] [place] [address]017 Dec, [facility] [address] [id number] [place] [address]- [address]259 Dec, [facility] [address] [id number] [place] [address]- [address]3 Dec, [facility] [address] [id number] [place] [address]- [address]42 Dec, [facility] [address] [id number] [place] [address]- 2050 Dec, [facility] [address] [id number] [place] [address]- 2963 Nov, [facility] [address] [id number] [place] [address]- 9002 Nov, [facility] [address] [id number] [place] [address]- 7265 Oct, [facility] [address] [id number] [place] [address]- 2423 September, [facility] [address] [id number] [place] [address]- 4123 September, [facility] [address] [id number] [place] [address]- 2035 September, [facility] [address] [id number] [place] [address]- 0296 September, [facility] [place] [facility] [address] [id number] [place] [address]- 1988 September, [facility] [address] [id number] [place] [address]- 5826 Aug, [facility] [address] [id number] [place] [address]- 9577 Jul, [facility] [place] [facility] [address] [id number] [place] [address]- 7130 15 Jul, 2011 [facility] [place] [facility] [address] [id number] [place] [address]- 8214 14 Jul, 2011 [facility] [place] [facility] [address] [id number] [place] [address]- 4690 14 Jul, 2011 [facility] [place] [facility] [address] [id number] [place] [address]- 5362 09 Jul, 2011 [facility] [place] [facility] [address] [id number] [place] [address]- 9963 09 Jul, 2011 [facility] [place] [facility] [address] [id number] [place] [address]- 9948 08 Jul, 2011 [facility] [place] [facility] [address] [id number] [place] [address]- 7846 05 Jul, 2011 [facility] [place] [facility] [address] [id number] [place] [address]- 5390 27 Jun, 2011 [facility] [place] [facility] [address] [id number] [place] [address]- 5514 16 Jun, 2011 [facility] [place] [facility] [address] [id number] [place] [address]- 0596 10 Jun, 2011 [facility] [place] [facility] [address] [id number] [place] [address]- 9321 May, [facility] [place] [facility] [address] [id number] [place] [address]- 0049 Apr, [facility] [place] [facility] [address] [id number] [place] [address]- 4514 Apr, [facility] [place] [facility] [address] [id number] [place] [address]- 5666 Mar, [facility] [place] [facility] [address] [id number] [place] [address]- 6526 Mar, [facility] [place] [facility] [address] [id number] [place] [address]- 9296 Mar, [facility] [address] [id number] [place] [address]- 4054 27 Feb, 2011 [facility] [place] [facility] [address] [id number] [place] [address]- 6128 Feb, [facility] [address] [id number] [place] [address]- 2709 Feb, [facility] [place] [facility] [address] [id number] [place] [address]- 1579 Apr, [facility] [address] [id number] [place] [address]- 4796 Apr, [facility] [place] [facility] [address] [id number] [place] [address]- 8610 Mar, [facility] [address] [id number] [place] [address]- 7428 Mar, [facility] [place] [facility] [address] [id number] [place] [address]- 3877 Mar, [facility] [address] [id number] [place] [address]- 1760 Mar, [facility] [place] [facility] [address] [id number] [place] [address]- 8045 Mar, [facility] [place] [facility] [address] [id number] [place] [address]- 2198 Feb, [facility] [place] [facility] [address] [id number], [place] [address]- 5940 September, [facility] [place] [facility] [address] [id number] [place] [address]- 9552 Aug, [facility] [place] [facility] [address] [id number] [place] [address]- 2609 22 Apr, 2009 [facility] [place] [facility] [address] [id number] [place] [address]- 2963 15 Apr, 2009 [facility] [place] [facility] [id number], [place] [address]- 2892 Mar, [facility] [id number] [address] Mar, [facility] [address] [facility] [id number], [place] [address]- 7727 Mar, [facility] [id number]135 Feb, [facility] [address] [facility] [id number][place]- 2549 Jan, [facility] [id number] [place] [address]- 3651 Dec, [facility] [id number] 9827 Nov, [facility] [id number], [place] [address]- 0832 Oct, [facility] [id number], [place] [address]- 4433 Apr, [facility] [id number], [place] [address]- 2255 Apr, [facility] [address] [address]85 Apr, [facility] [address] [address] Feb, IMMUNIZATIONS No Known Immunizations SOCIAL HISTORY Never Assessed REASON FOR VISIT Controlled Med Refill PLAN OF CARE VITAL SIGNS MEDICATIONS Medication Instructions Dosage Frequency Start Date End Date Duration Status [place] 10-325 MG Orally every 6 hrs 1 tablet as needed 6h Jul, 28 days Active RESULTS No Results [...]
== END 2017-12-06 10:30 | disposition home or self-care (01) | DRG 280 ==
LOC: EDUNIT# 17:36 → ER 17:37 → CATH 17:44 → ICU 17:44 → CATH 19:35 → ICU 12-06 10:30 → CATH 12-06 10:30
PROVIDERS: ADMIT Internal Medicine Interventional Cardiology; ATTEND Internal Medicine Interventional Cardiology
DX: I21.11 ST elevation (STEMI) myocardial infarction involving right coronary artery (principal); I49.01 Ventricular fibrillation; I10 Essential (primary) hypertension; E78.5 Hyperlipidemia, unspecified; E11.9 Type 2 diabetes mellitus without complications; F17.210 Nicotine dependence, cigarettes, uncomplicated; M79.7 Fibromyalgia; M54.5 Low back pain; G89.29 Other chronic pain; F41.9 Anxiety disorder, unspecified; F32.9 Major depressive disorder, single episode, unspecified; E66.9 Obesity, unspecified; Z68.29 Body mass index [BMI] 29.0-29.9, adult; Z79.899 Other long term (current) drug therapy
CPT/HCPCS: 36415; 71045; 80048; 80053; 80061; 82962; 83036; 83735; 83874; 83880; 84100; 84484; 85025; 85347; 85610; 85730; 87081; 93005; 93041; 93306; 93458; 96374; 96375

== ENCOUNTER → 2017-12-23 | Outpatient (CLI) | payer MEDICAID ==
[~2017-12-23] MED LIST changes: +ASPI-983 PO; +ATOR80TA76 PO; +CHLO-159 PO; +FLUT1DIS26 IH; +LISI-552 PO; +METO50TA15 PO; +NABU500T PO; +PANT40TA3 PO; +PRAM0.5T9 PO; +TICA90TA PO; +TIZA4TAB3 PO
--- NOTE | 2017-12-23 11:00 | Diagnostic Imaging Report ---
INDICATION: Routine screening. Comparison is made with prior mammogram from 12/18/2016 and 10/12/2015. 2-D and 3-D bilateral screening mammography was performed with CAD. Scattered fibroglandular densities are identified bilaterally. There is a fibronodular parenchymal pattern. No dominant mass or malignant appearing microcalcifications are seen. The axilla are unremarkable. Impression: BI-RADS category 2 No mammographic features suspicious for malignancy are identified. ACR BI-RADS Category 2: Benign findings. Result letter will be mailed to the patient. Note: At least 10% of breast cancer is not imaged by mammography. Dictated by: Dictated on workstation # [id number]
== END ==
LOC: RAD 08:47
PROVIDERS: ATTEND Nurse Practitioner Community Health
DX: Z12.31 Encounter for screening mammogram for malignant neoplasm of breast (principal)
CPT/HCPCS: 77067

== ENCOUNTER → 2017-12-25 | Outpatient (CLI) | payer MEDICAID ==
--- NOTE | 2017-12-25 13:08 | Diagnostic Imaging Report ---
Indication: Pain. Findings: Ankle brachial indices 1.1 bilaterally within normal limits. Impression: Normal resting ankle-brachial indices. Dictated by: Dictated on workstation # [id number]
== END ==
LOC: RAD 11:50
PROVIDERS: ATTEND Internal Medicine Interventional Cardiology
DX: I25.10 Atherosclerotic heart disease of native coronary artery without angina pectoris (principal); Z72.0 Tobacco use; Z53.8 Procedure and treatment not carried out for other reasons
CPT/HCPCS: 93922

== ENCOUNTER → 2018-01-23 | Outpatient (CLI) | payer MEDICAID, OTHER ==
--- NOTE | 2018-01-23 15:22 | Diagnostic Imaging Report ---
PROCEDURE: CT chest without contrast. TECHNIQUE: Multiple contiguous axial images were obtained through the chest without the use of intravenous contrast. INDICATION: Lung nodule, followup. Correlation is made with prior CT chest from 12/28/2016. FINDINGS: No axillary lymphadenopathy is detected. Small lymph nodes in the mediastinum appear stable. Shante are unremarkable. There is a nodule in the right cardiophrenic fat measuring 14 mm x 10 mm, unchanged from prior study. No pericardial or pleural fluid is seen. Tiny 3-4 mm nodule in posteromedial right lower lobe is stable and shows more than 2 years of stability consistent with benign etiology. No new nodule is seen. There is a tiny calcified granuloma in the left costophrenic angle. The upper abdomen is unremarkable. IMPRESSION: Overall stable noncontrast CT chest when compared with examination from one year earlier. Dictated by: Dictated on workstation # [id number]
== END ==
LOC: RAD 12:56
PROVIDERS: ATTEND Nurse Practitioner Family
DX: R91.8 Other nonspecific abnormal finding of lung field (principal); J45.909 Unspecified asthma, uncomplicated; Z72.0 Tobacco use
CPT/HCPCS: 71250

== ENCOUNTER → 2018-02-03 | Outpatient (CLI) | payer MEDICAID, OTHER ==
[~2018-02-03] MED LIST changes: +RT-ALBUTEROL SULF 2.5 MG/3 ML PRE-MIX VIAL INH ONE
== END ==
LOC: RT 12:25
PROVIDERS: ATTEND Nurse Practitioner Family
DX: R06.00 Dyspnea, unspecified (principal); J45.909 Unspecified asthma, uncomplicated
CPT/HCPCS: 94060; 94726; 94729

== ENCOUNTER → 2020-07-26 | Outpatient (CLI) | payer MEDICAID ==
[~2020-07-26] MED LIST changes: +ACHYD1T PO; +ASPI-1238 PO; -ASPI-983 PO; -HYDR-3820 PO; -LISI-552 PO; +LISI20TA26 PO; +NABU-88 PO; -NABU500T PO; -PANT40TA3; -PANT40TA3 PO; +PANT40TA52; +PANT40TA52 PO; -RT-ALBUTEROL SULF 2.5 MG/3 ML PRE-MIX VIAL INH ONE; -TIZA4TAB3 PO; +TIZA4TAB4 PO
--- NOTE | 2020-07-27 06:52 | Diagnostic Imaging Report ---
INDICATION: Routine screening. Comparison is made prior mammogram 12/23/2017 and 12/18/2016. 2-D and 3-D bilateral screening mammography was performed with CAD. Scattered fibroglandular densities are identified bilaterally. No mass or malignant appearing microcalcifications are seen. Axillae are unremarkable. Occasional benign calcifications are noted. IMPRESSION: BI-RADS Category 2 No mammographic features suspicious for malignancy are identified. ACR BI-RADS Category 2: Benign findings. Result letter will be mailed to the patient. Note: At least 10% of breast cancer is not imaged by mammography. Dictated by: Dictated on workstation # [id number]
== END ==
LOC: RAD 13:50
PROVIDERS: ATTEND Nurse Practitioner Family
DX: Z12.31 Encounter for screening mammogram for malignant neoplasm of breast (principal)
CPT/HCPCS: 77063; 77067

== ENCOUNTER → 2020-08-22 | Outpatient (CLI) | payer MEDICAID ==
--- NOTE | 2020-08-22 15:40 | Diagnostic Imaging Report ---
EXAMINATION: CT Chest without contrast (lung screening). TECHNIQUE: Multiple contiguous axial images were obtained through the chest without the use of intravenous contrast according to lung cancer screening protocol. All CT scans use one or more of the following dose optimizing techniques: automated exposure control, MA and/or KvP adjustment based on a patient size and exam type, or iterative reconstruction. HISTORY: 93-alpy-xvlr history of smoking. COMPARISON: CT chest from 01/23/2018. FINDINGS: Thyroid: The thyroid is normal. Mediastinum: Heart size is normal without significant pericardial effusion. Calcifications of the aorta and coronary vessels. Thoracic aorta is normal in caliber. No suspicious lymphadenopathy. Lungs and airways: There are mild background emphysematous changes of the lungs. No consolidation, pleural effusion, or pneumothorax. Stable scattered calcified granulomas. Stable size of a 0.4 cm right lower lobe subpleural pulmonary nodule. No new suspicious pulmonary nodule. The airways are normal. Upper abdomen: The subphrenic structures are normal. Musculoskeletal: No suspicious osseous lesion or compression fracture. IMPRESSION: 1. Stable 0.4 cm right lower lobe subpleural pulmonary nodule. No new suspicious pulmonary nodules. Recommend continued annual low-dose CT screening. 2. Mild emphysema. LUNG-RADS CATEGORY: 2 MODIFIER: S Dictated by: Dictated on workstation # [id number]
== END ==
LOC: RT 14:26
PROVIDERS: ATTEND Nurse Practitioner Family
DX: J43.9 Emphysema, unspecified (principal); J45.30 Mild persistent asthma, uncomplicated; R91.1 Solitary pulmonary nodule; Z76.89 Persons encountering health services in other specified circumstances; F17.210 Nicotine dependence, cigarettes, uncomplicated
CPT/HCPCS: 71271

== ENCOUNTER → 2020-09-29 | Outpatient (CLI) | payer MEDICAID ==
[~2020-09-29] MED LIST changes: -NABU-88 PO; +NABU500T8 PO
== END ==
LOC: CARD 12:49
PROVIDERS: ATTEND Internal Medicine Cardiovascular Disease
DX: I25.10 Atherosclerotic heart disease of native coronary artery without angina pectoris (principal); I10 Essential (primary) hypertension
CPT/HCPCS: 93306

== ENCOUNTER → 2020-10-21 | Outpatient (CLI) | payer MEDICAID ==
[~2020-10-21] MED LIST changes: +ACET-2650 PO; +AMLO-250 PO; +BENZ100C18 PO; +CLOP75TA28 PO; +NAPR500T8 PO; +OMEG-33 PO; +PIOG45TA65 PO
--- NOTE | 2020-10-21 16:03 | Diagnostic Imaging Report ---
PROCEDURE: MRI lumbar spine without contrast. TECHNIQUE: Multiplanar, multisequence MRI of the lumbar spine was performed without contrast. INDICATION: Back pain. Bilateral radiculopathy. COMPARISON: 11/14/2010. FINDINGS: 5 lumbar type vertebral bodies are visualized with the last well-formed disc space designated L5-S1. No acute fracture or dislocation is seen in the lumbar spine. There is slight increase in grade 1 anterolisthesis of L4 on L5. Vertebral body heights and disc spaces are well-maintained. The bone marrow signal is normal. The conus terminates at the L1 level. No masses are seen associated with the conus or nerve roots of the cauda equina. No epidural collections are identified. Perineural cyst is seen posterior to the S2 level. Multilevel degenerative changes are seen in the lumbar spine with disc bulges, facet hypertrophy, and buckling of the ligamentum flavum. T12-L1: No significant spinal canal or foraminal stenosis. L1-L2: No significant spinal canal or foraminal stenosis. L2-L3: Facet hypertrophy and buckling of the ligamentum flavum results in no significant spinal canal narrowing and mild bilateral foraminal narrowing. L3-L4: Facet hypertrophy and buckling of the ligamentum flavum results in no significant spinal canal narrowing and xfie-kb-ehxpqgmh bilateral foraminal narrowing. L4-L5: Broad-based disc bulge, facet hypertrophy, and buckling of the ligamentum flavum results in piew-rh-zssbwbrx spinal canal stenosis and kedsgdvd-dc-kearvh bilateral foraminal stenosis. L5-S1: Broad-based disc bulge, facet hypertrophy, and buckling of the ligamentum flavum results in mild spinal canal narrowing and moderate bilateral foraminal stenosis. Paravertebral soft tissues are unremarkable. IMPRESSION: 1. No acute fracture or dislocation in the lumbar spine. 2. Multilevel degenerative changes in the lumbar spine, greatest at L4-L5 and L5-S1. Findings have progressed since the prior exam. 3. Grade 1 anterolisthesis of L4 on L5, slightly progressed since the prior exam. Dictated by: Dictated on workstation # [id number]
== END ==
LOC: RAD 13:48
PROVIDERS: ATTEND Physician Assistant
DX: M47.26 Other spondylosis with radiculopathy, lumbar region (principal); M47.817 Spondylosis without myelopathy or radiculopathy, lumbosacral region; M43.16 Spondylolisthesis, lumbar region
CPT/HCPCS: 72148

== ENCOUNTER 2020-10-25 05:40 | Outpatient (CLI) | payer MEDICAID ==
[~2020-10-25] VITALS: Ht 154.9 cm; Wt 74.5 kg
[~2020-10-25 05:40] MED LIST changes: -ACET-2650 PO; -AMLO-250 PO; -BENZ100C18 PO; -CLOP75TA28 PO; -NAPR500T8 PO; -OMEG-33 PO; -PIOG45TA65 PO
[2020-10-25] MEDS ORDERED: PIOG45TA65 PO (13:52)
[2020-10-25] MEDS ORDERED: BENZ100C18 PO (13:52)
[2020-10-25] MEDS ORDERED: CLOP75TA28 PO (13:52)
[2020-10-25] MEDS ORDERED: OMEG-33 PO (13:52)
[2020-10-25] MEDS ORDERED: NAPR500T8 PO (13:52)
[2020-10-25] MEDS ORDERED: AMLO-250 PO (13:52)
[2020-10-25] MEDS ORDERED: ACET-2650 PO (13:54)
== END 2020-10-25 14:15 | disposition home or self-care (01) ==
LOC: PREOP 05:40
PROVIDERS: ATTEND Surgery
DX: Z01.818 Encounter for other preprocedural examination (principal)

== ENCOUNTER 2020-11-01 12:45 | Day surgery (SDC) | payer MEDICAID ==
[2020-11-01] VITALS (8 sets, daily range): BP systolic 143–175; BP diastolic 60–80
[~2020-11-01] VITALS: Ht 155 cm; Wt 74.5 kg
[~2020-11-01 12:45] MED LIST changes: +ACET-2650 PO; +AMLO-250 PO; +BENZ100C18 PO; +CLOP75TA28 PO; +NAPR500T8 PO; +OMEG-33 PO; +PIOG45TA65 PO
[2020-11-01] MEDS ORDERED: LACTATED RINGERS 1,000 ML IV STA (12:47)
[2020-11-01] MEDS ORDERED: PROPOFOL INJECTION 50 ML IV ONE (14:19)
[2020-11-01] MEDS ORDERED: MIDAZOLAM 2 MG/2 ML (VERSED) VIAL ONE (14:19)
--- NOTE | 2020-11-01 15:07 | Progress Note-Post Operative ---
Post-Operative Progess Note Surgeon (s)/Development Chemist (s) Surgeon ANGELITA YUEN DO Development Chemist: na Pre-Operative Diagnosis +cologuard Post-Operative Diagnosis colon polyps Procedure & Operative Findings Date of Procedure 11/01/20 Procedure Performed/Findings colonoscopy c hot bx polypectomy x 6 Anesthesia Type per burnisher Estimated Blood Loss Estimated blood loss (mL): none Specimens/Packing Specimens Removed polyps ANGELITA YUEN DO Nov 01, 2020 15:06
--- NOTE | 2020-11-01 15:08 | Discharge Inst-Simple/Standard ---
Discharge Inst-Standard Patient Instructions/Follow Up Plan of Care/Instructions/FU: 2 weeks Jadon Activity as Tolerated: Yes Discharge Diet: Regular Diet ANGELITA YUEN DO Nov 01, 2020 15:08
--- NOTE | 2020-11-01 15:13 | Anesthesia-General Post-Op ---
MAC Patient Condition Mental Status/LOC: Same as Preop Cardiovascular: Satisfactory Nausea/Vomiting: Absent Respiratory: Satisfactory Pain: Controlled Complications: Absent Post Op Complications Complications None Follow Up Care/Instructions Patient Instructions None needed. Anesthesiology Discharge Order Discharge Order Patient is doing well, no complaints, stable vital signs, no apparent adverse anesthesia problems. No complications reported per nursing. LEESA MEDRANO LIME SUPERVISOR Nov 01, 2020 15:13
--- NOTE | 2020-11-01 17:13 | OPERATIVE REPORT ---
DATE OF SERVICE: 11/01/2020 PREOPERATIVE DIAGNOSIS: Positive Cologuard. ` POSTOPERATIVE DIAGNOSIS: Colon polyps. PROCEDURE: Colonoscopy with hot biopsy polypectomy x6. SURGEON: Angelita Diop DO ANESTHESIA: Per LOAN SECRETARY. ESTIMATED BLOOD LOSS: None. COMPLICATIONS: None. INDICATIONS: The patient is a 65-year-old female with positive Cologuard. She understands risks and benefits of procedure and wished to proceed with procedure. Consent was signed in the chart. DESCRIPTION OF PROCEDURE: The patient was taken to the endoscopy suite, placed in left lateral recumbent position. Timeout was performed. Digital rectal exam was performed. No palpable polyps, masses or ulcerations. Scope was inserted in the rectum, advanced all the way to cecum with minimal difficulty. No polyps, masses or ulcerations within the cecum, ascending, transverse and descending colon. In sigmoid colon, there were multiple polyps, hot biopsy polypectomy was performed. A total of 6 were present. Once in the rectum, the scope was retroflexed noting no other pathology. Scope was returned to its normal position, slowly withdrawn until completely removed. The patient tolerated procedure well without any complications. She was taken to the recovery room in stable condition. RECOMMENDATIONS: The patient will need repeat colonoscopy in one year. Any issues before that be seen at that time. The patient will follow up in the office to discuss pathology results. Further recommendations pending. Job ID: [id number] DocumentID: [id number] Dictated Date: 11/01/2020 15:10:11 Pouring Crane Operator Date: 11/01/2020 17:12:55 Dictated By: ANGELITA DIOP DO
== END 2020-11-01 15:55 | disposition home or self-care (01) ==
LOC: ENDO 12:45
PROVIDERS: ATTEND Surgery
DX: K63.5 Polyp of colon (principal); R19.5 Other fecal abnormalities; I10 Essential (primary) hypertension; I25.119 Atherosclerotic heart disease of native coronary artery with unspecified angina pectoris; J45.909 Unspecified asthma, uncomplicated; K21.9 Gastro-esophageal reflux disease without esophagitis; E11.9 Type 2 diabetes mellitus without complications; M79.7 Fibromyalgia; G25.81 Restless legs syndrome; E78.00 Pure hypercholesterolemia, unspecified; F17.210 Nicotine dependence, cigarettes, uncomplicated; F32.9 Major depressive disorder, single episode, unspecified; Z79.82 Long term (current) use of aspirin; Z95.1 Presence of aortocoronary bypass graft; Z79.899 Other long term (current) drug therapy; Z79.84 Long term (current) use of oral hypoglycemic drugs; Z79.02 Long term (current) use of antithrombotics/antiplatelets; Z90.710 Acquired absence of both cervix and uterus; Z79.891 Long term (current) use of opiate analgesic; Z83.6 Family history of other diseases of the respiratory system
CPT/HCPCS: 88305

== ENCOUNTER → 2021-05-16 | Outpatient (CLI) | payer MEDICAID ==
[~2021-05-16] MED LIST changes: +RT-ALBUTEROL SULF 2.5 MG/3 ML PRE-MIX VIAL INH ONE; +TIZA-186 PO; -TIZA4TAB4 PO
== END ==
LOC: RT 10:45
PROVIDERS: ATTEND Pediatrics
DX: R05.3 Chronic cough (principal)
CPT/HCPCS: 94060; 94726; 94729

== ENCOUNTER 2022-09-21 14:40 | Outpatient (RCR) | payer MEDICARE, MEDICAID ==
[~2022-09-21 14:40] MED LIST changes: -RT-ALBUTEROL SULF 2.5 MG/3 ML PRE-MIX VIAL INH ONE
== END 2022-10-10 | disposition home or self-care (01) ==
PROVIDERS: ATTEND Orthopaedic Surgery Orthopaedic Trauma
DX: M54.2 Cervicalgia (principal); M54.50 Low back pain, unspecified

== ENCOUNTER 2022-10-23 12:52 | Emergency (ER) | payer MEDICARE, MEDICAID ==
[~2022-10-23] VITALS: Ht 152 cm; Wt 72.5 kg
--- NOTE | 2022-10-23 13:24 | ED Respiratory ---
General Chief Complaint: Respiratory Problems Stated Complaint: DIFFICULTY BREATHING Nursing Triage Note: PT AMB TO RM 7 WITH C/O SOB X3 DAYS AND VOMITTING X2 DAYS Source: patient Exam Limitations: no limitations History of Present Illness Date Seen by Provider: Oct 23, 2022 Time Seen by Provider: 13:13 Initial Comments 67-year-old female presents to the ER with complaints of sudden onset shortness of air approximately 1 hour prior to arrival. She states that she was outside just checking on a table that she had recently painted. She states that she was bending over and moving some bricks around, states that when she stood up she felt very short of breath. She states she felt as though she was going to pass out. She states that 2 days ago she had dry heaves, no vomiting. States that for the last couple days she has had dizziness and shortness of air when lying down, and then it started to recur when she was walking. She states that her son was ill last week with vomiting. She denies headache, fever, sore throat. Does report a cough, but states that the cough has been going on for a long time, and she is going to have an endoscopy to evaluate this. She denies any chest pain with the shortness of air, denies abdominal pain, nausea, vomiting, diarrhea. Past medical history includes hypertension, diabetes, previous KS with stent placement. She had a surgery on her back on August 30. She reports a 50-year smoking history. Allergies and Home Medications Allergies Coded Allergies: latex (Unverified Allergy, Mild, RASH, 08/24/08) codeine (Verified Adverse Reaction, Mild, N/V, 08/30/08) Patient Home Medication List Home Medication List Reviewed: Yes Acetaminophen (Tylenol Arthritis) 650 Mg Tablet.er, 650 MG PO for PAIN- BREAKTHROUGH, (Reported) Entered as Reported by: NICKY BRAY on 10/25/20 1354 Amlodipine Besylate (Amlodipine Besylate) 5 Mg Tablet, 5 MG PO DAILY, (Reported) Entered as Reported by: NICKY BRAY on 10/25/20 1352 Aspirin (Aspirin EC) 81 Mg Tablet.dr, 81 MG PO DAILY Prescribed by: MANUEL RASMUSSEN on 12/06/17958 Atorvastatin Calcium (Atorvastatin Calcium) 80 Mg Tablet, 80 MG PO HS Prescribed by: MANUEL RASMUSSEN on 7/27/18 0959 Benzonatate (Tessalon Perles) 100 Mg Capsule, 100 MG PO TID PRN for COUGHING, (Reported) Entered as Reported by: NICKY BRAY on 10/25/20 135 Chlorpheniramine Maleate (Chlortabs) 4 Mg Tablet, 4 MG PO DAILY, (Reported) Entered as Reported by: SARY PINEDA on 12/05/17 0945 Clopidogrel Bisulfate (Clopidogrel) 75 Mg Tablet, 75 MG PO DAILY, (Reported) Entered as Reported by: NICKY BRAY on 10/25/20 135 Doxycycline Hyclate (Doxycycline Hyclate) 100 Mg Tablet, 100 MG PO BID Prescribed by: Yvette Francis on 10/23/22 1523 Fluticasone/Salmeterol (Advair 250-50 Diskus) 1 Each Blst.w.dev, 1 EACH IH HS, (Reported) Entered as Reported by: SARY PINEDA on 12/05/17 07 Lisinopril (Lisinopril) 20 Mg Tablet, 20 MG PO DAILY@0900 Prescribed by: MANUEL RASMUSSEN on 12/06/17 0959 Metoprolol Tartrate (Metoprolol Tartrate) 50 Mg Tablet, 75 MG PO BID Prescribed by: MANUEL RASMUSSEN on 12/06/17 0959 Nabumetone (Nabumetone) 500 Mg Tablet, 500 MG PO BID, (Reported) Entered as Reported by: SARY PINEDA on 12/05/17 07 Naproxen (Naproxen) 500 Mg Tablet.dr, 500 MG PO BID, (Reported) Entered as Reported by: NICKY BRAY on 10/25/20 135 Pace-3/Dha/Epa/Fish Oil (Fish Oil 500 mg Softgel) 1 Each Capsule, 1 EACH PO DAILY, (Reported) Entered as Reported by: NICKY BRAY on 10/25/20 135 Pantoprazole Sodium (Pantoprazole Sodium) 40 Mg Tablet.dr, 40 MG PO HS, (Reported) Entered as Reported by: SARY PINEDA on 12/05/17 07 Pioglitazone HCl (Pioglitazone HCl) 45 Mg Tablet, 45 MG PO DAILY, (Reported) Entered as Reported by: NICKY BRAY on 10/25/20 135 Pramipexole Di-HCl (Pramipexole Dihydrochloride) 0.5 Mg Tablet, 0.5 MG PO TID PRN for RESTLESSNESS, (Reported) Entered as Reported by: SARY PINEDA on 12/05/17721 Tizanidine HCl (Tizanidine HCl) 4 Mg Tablet, 4 MG PO TID PRN for MUSCLE SPASMS, (Reported) Entered as Reported by: SARY PINEDA on 12/05/17721 Review of Systems Review of Systems Constitutional: see HPI Past Hnoosji-Ebunay-Berreu Hx Patient Social History Tobacco Use?: Yes Tobacco type used: Cigarettes Substance use?: No Alcohol Use?: No Pt feels they are or have been: No Immunizations Up To Date First/Initial COVID19 Vaccinat: YES Second COVID19 Vaccination Mann: YES Third COVID19 Vaccination Date: YES Seasonal Allergies Seasonal Allergies: Yes Past Medical History Surgery/Hospitalization HX: BACK SURGERY, JOAQUÍN, HYSTO HTN, HLD, HTN, DM, GERD Surgeries: Yes (THROAT; HYST/BSO; HERNIA/ STENT) Gallbladder, Hysterectomy, Oophorectomy Respiratory: Yes Asthma Cardiac: Yes (STENT 3 YRS AGO) Heart Attack, High Cholesterol, Hypertension Neurological: No 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 Sexually Transmitted Disease: No Genitourinary: No Gastrointestinal: Yes Abdominal Hernia, Gall Bladder Disease Musculoskeletal: Yes (FIBROMYALGIA; RESTLESS LEG SYNDROME) Fibromyalgia, Chronic Back Pain Endocrine: Yes (DIET CONTROLLED DIABETES) Diabetes, Non-Insulin dep Loss of Vision: Denies Hearing Impairment: Denies Cancer: Yes Skin Did You Recieve Any Treatments: Yes Psychosocial: Yes Depression Integumentary: No Blood Disorders: No Adverse Reaction/Blood Tranf: No Family Medical History Hypertension Physical Exam Vital Signs - First Documented 10/23/22 13:06 Temp 36.0 Pulse 66 Resp 14 B/P (MAP) 138/78 (98) Pulse Ox 97 O2 Delivery Room Air Capillary Refill : Height: 5'1.00" Weight: 154lbs. 5.0oz. [id number]; 31.00 BMI Method:Stated General Appearance: WD/WN, no apparent distress Neck: supple, normal inspection Respiratory: lungs clear, normal breath sounds, no respiratory distress, no accessory muscle use Cardiovascular: regular rate, rhythm Extremities: normal range of motion, normal inspection, no pedal edema Neurologic/Psychiatric: alert, normal mood/affect Skin: normal color, warm/dry Progress/Results/Core Measures Suspected Sepsis SIRS Temperature: Pulse: 66 Respiratory Rate: 14 Laboratory Tests 10/23/22 13:30: White Blood Count 9.1 Blood Pressure 138 /78 Mean: 98 Laboratory Tests 10/23/22 13:30: Creatinine 1.05, Platelet Count 186, Total Bilirubin 0.8 Results/Orders Lab Results Laboratory Tests Test 10/23/22 13:30 Range/Units White Blood Count 9.1 4.3-11.0 10^3/uL Red Blood Count 5.27 H 3.80-5.11 10^6/uL Hemoglobin 14.1 11.5-16.0 g/dL Hematocrit 44 35-52 % Mean Corpuscular Volume 83 80-99 fL Mean Corpuscular Hemoglobin 27 25-34 pg Mean Corpuscular Hemoglobin Concent 32 32-36 g/dL Red Cell Distribution Width 14.9 H 10.0-14.5 % Platelet Count 186 130-400 10^3/uL Mean Platelet Volume 11.3 9.0-12.2 fL Immature Granulocyte % (Auto) 0 % Neutrophils (%) (Auto) 58 42-75 % Lymphocytes (%) (Auto) 30 12-44 % Monocytes (%) (Auto) 9 0-12 % Eosinophils (%) (Auto) 2 0-10 % Basophils (%) (Auto) 1 0-10 % Neutrophils # (Auto) 5.3 1.8-7.8 10^3/uL Lymphocytes # (Auto) 2.7 1.0-4.0 10^3/uL Monocytes # (Auto) 0.8 0.0-1.0 10^3/uL Eosinophils # (Auto) 0.2 0.0-0.3 10^3/uL Basophils # (Auto) 0.1 0.0-0.1 10^3/uL Immature Granulocyte # (Auto) 0.0 0.0-0.1 10^3/uL D-Dimer 0.89 H 0.00-0.49 UG/ML Sodium Level 135 135-145 MMOL/L Potassium Level 3.9 3.6-5.0 MMOL/L Chloride Level 103 98-107 MMOL/L Carbon Dioxide Level 21 21-32 MMOL/L Anion Gap 11 5-14 MMOL/L Blood Urea Nitrogen 20 H 7-18 MG/DL Creatinine 1.05 0.60-1.30 MG/DL Estimat Glomerular Filtration Rate 59 BUN/Creatinine Ratio 19 Glucose Level 122 H 70-105 MG/DL Calcium Level 9.9 8.5-10.1 MG/DL Corrected Calcium 9.7 8.5-10.1 MG/DL Magnesium Level 1.8 1.6-2.4 MG/DL Total Bilirubin 0.8 0.1-1.0 MG/DL Aspartate Amino Transf (AST/SGOT) 39 H 5-34 U/L Alanine Aminotransferase (ALT/SGPT) 32 0-55 U/L Alkaline Phosphatase 97 40-136 U/L B-Type Natriuretic Peptide 247.2 H <100.0 PG/ML Total Protein 7.0 6.4-8.2 GM/DL Albumin 4.2 3.2-4.5 GM/DL My Orders Orders - YVETTE FRANCIS CAR DUMPER OPERATOR Cbc With Automated Diff (10/23/22 13:21) Comprehensive Metabolic Panel (10/23/22 13:21) Bnp Iliana (10/23/22 13:21) Fibrin Degradation Products (10/23/22 13:21) Magnesium (10/23/22 13:21) Ekg Tracing (10/23/22 13:21) O2 (10/23/22 13:21) Ed Iv/Invasive Line Start (10/23/22 13:21) Monitor-Rhythm Ecg Trace Only (10/23/22 13:21) Chest 1 View, Ap/Pa Only (10/23/22 13:21) Ct Angio Chest W (R/O Pe) (10/23/22 14:21) Iohexol Injection (Omnipaque 350 Mg/Ml 1 (10/23/22 14:30) Ns (Ivpb) (Sodium Chloride 0.9% Ivpb Bag (10/23/22 14:30) Medications Given in ED Current Medications Medications Dose Ordered Sig/Daniel Route Start Time Stop Time Status Last Admin Dose Admin Iohexol 100 ml ONCE ONCE IV 10/23/22 14:30 10/23/22 14:31 DC 10/23/22 14:47 75 ML Sodium Chloride 100 ml ONCE ONCE IV 10/23/22 14:30 10/23/22 14:31 DC 6/13/23 14:47 70 ML Vital Signs/I&O 10/23/22 10/23/22 10/23/22 10/23/22 13:06 13:06 13:15 15:28 Temp 36.0 37.0 Pulse 66 71 Resp 14 15 B/P (MAP) 138/78 (98) 137/69 Pulse Ox 97 96 98 O2 Delivery Room Air Room Air Room Air Room Air Capillary Refill : Blood Pressure Mean: 98 Progress Note : Progress Note Patient seen and evaluated, resting comfortably in bed, no acute distress. Based on exam and symptoms, work-up initiated including CBC, CMP, BNP, D-dimer, magnesium, EKG, chest x-ray. Echocardiogram from September 2020 shows estimated ejection fraction of 55 to 65% and abnormal left ventricular relaxation resulting in grade 1 diastolic dysfunction. 1422 labs reviewed. CBC grossly normal, RBC slightly elevated 5.27 CMP shows slightly elevated BUN 20, normal creatinine 1.05, decreased GFR 59. Glucose slightly elevated 122. AST slightly elevated 39. Magnesium normal 1.8. BNP is elevated indicating increased left ventricular end diastolic dilatation which may be seen in CHF. Slightly elevated to 47.2. D-dimer elevated 0.89. Chest x-ray reviewed. Negative for acute cardiopulmonary process. CT angio chest ordered to rule out PE due to elevated D-dimer. 1520 CT reviewed. Negative for acute pulmonary embolism. It does show dependent opacities in the lungs, no focal consolidation or mass. Will discharge with prescription for doxycycline in case this is the beginning of a pneumonia. Patient was able to walk to the bathroom and back to room without any shortness of breath or difficulties. Results discussed with patient. Shortness of breath could be related to possible beginnings of pneumonia or heart failure. Patient instructed to follow-up with Dr. Vernon regarding elevated BNP and possible repeat echocardiogram. Patient agreeable to discharge plan. Discharge instructions and return precautions provided. ECG Initial ECG Impression Date: Oct 23, 2022 Initial ECG Impression Time: 13:32 Initial ECG Rate: 64 Initial ECG Rhythm: Normal Sinus, PVC Initial ECG Intervals: QRS (Slightly elevated 106) Initial ECG Impression: Nonspecific Changes Initial ECG Comparisson: Changed Comment Q waves in lead III, no ST elevation, does show T wave inversion. Incomplete right bundle branch block. Diagnostic Imaging Diagonstic Imaging: Xray Plain Films/CT/US/NM/MRI: chest Comments [facility] [place], [place] NAME: AGUSTÍN BETANCUR [facility] REC#: [id number] PT STATUS: REG ER : 1955 PHYSICIAN: YVETTE FRANCIS APRN ADMIT DATE: 10/23/22/ER Draft Date of Exam:10/23/22 CHEST 1 VIEW, AP/PA ONLY INDICATION: SOB. COMPARISON: 12/05/2017. FINDINGS: Single frontal view of the chest demonstrates normal heart size and pulmonary vascularity. The lungs are well aerated and clear. No large pleural effusion or pneumothorax is seen. The visualized osseous structures show no acute abnormalities. IMPRESSION: 1. No acute cardiopulmonary process. Dictated on workstation # [id number] Dict: 10/23/22 1341 Trans: 10/23/22 1342 [id number] Interpreted by: LISSA [place] MD Electronically signed by: Lorigonscullen Imaging: CT Plain Films/CT/US/NM/MRI: chest Comments [facility] [place] [place] NAME: AGUSTÍN BETANCUR [facility] REC#: [id number] PT STATUS: REG ER : 1955 PHYSICIAN: YVETTE FRANCIS APRN ADMIT DATE: 10/23/22/ER Signed Date of Exam:10/23/22 CT ANGIO CHEST W (R/O PE) TECHNIQUE: CTA of the chest was performed with contrast bolus timing optimized for evaluation of the pulmonary arteries. 3-D reformats were obtained and reviewed. Dose reduction techniques were utilized. REASON FOR EXAM: Elevated D-dimer. Shortness of breath. COMPARISON: 08/22/2020. FINDINGS: This helical CT pulmonary angiogram is diagnostic to the subsegmental level branches of the pulmonary artery and demonstrates no pulmonary emboli. The heart and great vessels are unremarkable. There is no pericardial effusion. There is calcified aortic and coronary atherosclerotic plaque without aneurysm. There is no axillary, mediastinal, or hilar adenopathy. Dependent opacities are seen in the lungs. No focal consolidation or mass. No central endobronchial obstructing lesion. No pleural effusion or pneumothorax. Osseous structures appear normal. Limited views of the upper abdomen are unremarkable. IMPRESSION: 1. No acute pulmonary embolus. 2. Dependent opacities in the lungs. No focal consolidation or mass. Dictated by: Dictated on workstation # [id number] Dict: 10/23/22 1457 Trans: 10/23/22 1510 [id number] Interpreted by: ANGELA HERNANDEZ DO Electronically signed by: ANGELA HERNANDEZ DO 10/23/22 1510 Departure Impression Primary Impression: Shortness of breath Disposition: 01 HOME, SELF-CARE Condition: Stable Departure-Patient Inst. Decision time for Depature: 15:21 Referrals: DELIA MELO DO (PCP/Family) Primary Care Physician Patient Instructions: Pneumonia, Adult (DC) Add. Discharge Instructions: You might be beginning to develop pneumonia. I am starting you on an antibiotic. 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 Complete full course of antibiotic as directed. Follow-up with Dr. Melo in 1 week. Follow-up with Dr. Vernon, your shortness of breath could also be related to your heart. Call him tomorrow to schedule a follow-up appointment. Return for severe shortness of breath, chest pain, or any other new, concerning, or worsening symptoms. All discharge instructions reviewed with patient and/or family. Voiced understanding. Scripts Doxycycline Hyclate (Doxycycline Hyclate) 100 Mg Tablet 100 MG PO BID for 10 Days, #20 TAB 0 Refills Prov: YVETTE FRANCIS APRN 10/23/22 Copy Copies To 1: DELIA MELO BRITTANY R APRN Oct 23, 2022 13:24
[2022-10-23 13:37] LABS: BASOPHILS # (AUTO) 0.1 10^3/uL (0.0-0.1); BASOPHILS % (AUTO) 1 % (0-10); EOSINOPHILS # (AUTO) 0.2 10^3/uL (0.0-0.3); EOSINOPHILS % (AUTO) 2 % (0-10); HEMATOCRIT 44 % (35-52); HEMOGLOBIN 14.1 g/dL (11.5-16.0); LYMPHOCYTES # (AUTO) 2.7 10^3/uL (1.0-4.0); LYMPHOCYTES % (AUTO) 30 % (12-44); MEAN CORPUSCULAR HEMOGLOBIN 27 pg (25-34); MEAN CORPUSCULAR HGB CONC 32 g/dL (32-36); MEAN CORPUSCULAR VOLUME 83 fL (80-99); MEAN PLATELET VOLUME 11.3 fL (9.0-12.2); MONOCYTES # (AUTO) 0.8 10^3/uL (0.0-1.0); MONOCYTES % (AUTO) 9 % (0-12); NEUTROPHILS # (AUTO) 5.3 10^3/uL (1.8-7.8); NEUTROPHILS % (AUTO) 58 % (42-75); PLATELET COUNT 186 10^3/uL (130-400); WHITE BLOOD COUNT 9.1 10^3/uL (4.3-11.0)
--- NOTE | 2022-10-23 13:43 | Diagnostic Imaging Report ---
INDICATION: SOB. COMPARISON: 12/05/2017. FINDINGS: Single frontal view of the chest demonstrates normal heart size and pulmonary vascularity. The lungs are well aerated and clear. No large pleural effusion or pneumothorax is seen. The visualized osseous structures show no acute abnormalities. IMPRESSION: 1. No acute cardiopulmonary process. Dictated by: Dictated on workstation # [id number]
[2022-10-23 13:46] LABS: ALBUMIN 4.2 GM/DL (3.2-4.5)
[2022-10-23 13:47] LABS: POTASSIUM 3.9 MMOL/L (3.6-5.0)
[2022-10-23 13:48] LABS: CALCIUM 9.9 MG/DL (8.5-10.1)
[2022-10-23 13:51] LABS: BILIRUBIN,TOTAL 0.8 MG/DL (0.1-1.0)
[2022-10-23 13:52] LABS: CREATININE SERUM 1.05 MG/DL (0.60-1.30)
[2022-10-23 13:56] LABS: MAGNESIUM 1.8 MG/DL (1.6-2.4)
[2022-10-23] MEDS ORDERED: NS 100 ML (IVPB) BAG IV ONE (14:30)
[2022-10-23] MEDS ORDERED: IOHEXOL 350 MG/ML 100 ML (OMNIPAQUE 350) VIAL IV ONE (14:30)
--- NOTE | 2022-10-23 15:05 | Diagnostic Imaging Report ---
TECHNIQUE: CTA of the chest was performed with contrast bolus timing optimized for evaluation of the pulmonary arteries. 3-D reformats were obtained and reviewed. Dose reduction techniques were utilized. REASON FOR EXAM: Elevated D-dimer. Shortness of breath. COMPARISON: 08/22/2020. FINDINGS: This helical CT pulmonary angiogram is diagnostic to the subsegmental level branches of the pulmonary artery and demonstrates no pulmonary emboli. The heart and great vessels are unremarkable. There is no pericardial effusion. There is calcified aortic and coronary atherosclerotic plaque without aneurysm. There is no axillary, mediastinal, or hilar adenopathy. Dependent opacities are seen in the lungs. No focal consolidation or mass. No central endobronchial obstructing lesion. No pleural effusion or pneumothorax. Osseous structures appear normal. Limited views of the upper abdomen are unremarkable. IMPRESSION: 1. No acute pulmonary embolus. 2. Dependent opacities in the lungs. No focal consolidation or mass. Dictated by: Dictated on workstation # [id number]
[2022-10-23] MEDS ORDERED: DOXY100T2 PO (15:23)
[2022-10-23 15:28] VITALS: BP 137/69
== END 2022-10-23 15:28 | disposition home or self-care (01) ==
LOC: EDUNIT# 12:52 → ER 12:56
DX: R06.02 Shortness of breath (principal); R79.1 Abnormal coagulation profile; R79.89 Other specified abnormal findings of blood chemistry; F17.210 Nicotine dependence, cigarettes, uncomplicated; Z91.040 Latex allergy status
CPT/HCPCS: 36415; 71045; 71275; 80053; 83735; 83880; 85025; 85379; 93005; 93041

== ENCOUNTER 2022-10-31 06:37 | Outpatient (CLI) | payer MEDICARE, MEDICAID ==
[~2022-10-31] VITALS: Ht 154.9 cm; Wt 74.8 kg
[~2022-10-31 06:37] MED LIST changes: +DOXY100T2 PO
== END 2022-10-31 09:11 | disposition home or self-care (01) ==
LOC: PREOP 06:37
PROVIDERS: ATTEND Surgery
DX: Z01.818 Encounter for other preprocedural examination (principal)

== ENCOUNTER 2022-11-07 17:22 | Emergency (ER) | payer MEDICARE, MEDICAID ==
[2022-11-07 17:28] VITALS: BP 167/97
--- NOTE | 2022-11-07 17:41 | ED Cardiac General ---
History of Present Illness General Chief Complaint: Cardiac/General Problems Stated Complaint: DIFFICULTY BREATHING Source: patient Exam Limitations: no limitations History of Present Illness Date Seen by Provider: Nov 07, 2022 Time Seen by Provider: 17:39 Initial Comments Patient is a 67-year-old female with a history of coronary artery disease, cardiac stents, hypertension, diabetes, high cholesterol, smoking who presents ED with shortness of breath. She had 2 episodes a day between 3:30 PM and 4:00 for episode of shortness of breath. First time she was walking from her car to her door felt short of breath for about 3 seconds. She had to sit down. She had another episode when she cleaned a spill off the floor lasting for few seconds. She did not have any chest pain during this episode. Similar type short of breath and was seen here October 23 with negative work-up. She follow-up with her primary care physician who recommended follow-up with her urologic nurse but he is currently out of town Dr. Vernon. She is currently asymptomatic of chest pain or shortness of breath. She states she feels slightly weak and disoriented. She denies of any fever, chills, body aches, nausea, vomiting, diarrhea. When she was seen on October 23 she was diagnosed with pneumonia and finished the antibiotics. She denies history of COPD, oxygen use, or nebulizer use. Allergies and Home Medications Allergies Coded Allergies: latex (Unverified Allergy, Mild, RASH, 08/24/08) codeine (Verified Adverse Reaction, Mild, N/V, 08/30/08) Patient Home Medication List Home Medication List Reviewed: Yes Acetaminophen (Tylenol Arthritis) 650 Mg Tablet.er, 650 MG PO for PAIN- BREAKTHROUGH, (Reported) Entered as Reported by: NICKY BRAY on 10/25/20 1354 Amlodipine Besylate (Amlodipine Besylate) 5 Mg Tablet, 5 MG PO DAILY, (Reported) Entered as Reported by: NICKY BRAY on 10/25/20 1352 Aspirin (Aspirin EC) 81 Mg Tablet.dr, 81 MG PO DAILY Prescribed by: MANUEL RASMUSSEN on 12/06/17958 Atorvastatin Calcium (Atorvastatin Calcium) 80 Mg Tablet, 80 MG PO HS Prescribed by: MANUEL RASMUSSEN on 12/06/17958 Benzonatate (Tessalon Perles) 100 Mg Capsule, 100 MG PO TID PRN for COUGHING, (Reported) Entered as Reported by: NICKY BRAY on 10/25/20 135 Chlorpheniramine Maleate (Chlortabs) 4 Mg Tablet, 4 MG PO DAILY, (Reported) Entered as Reported by: SARY PINEDA on 12/05/17 0945 Clopidogrel Bisulfate (Clopidogrel) 75 Mg Tablet, 75 MG PO DAILY, (Reported) Entered as Reported by: NICKY BRAY on 10/25/20 135 Doxycycline Hyclate (Doxycycline Hyclate) 100 Mg Tablet, 100 MG PO BID Prescribed by: Yvette Jarvis on 10/23/22 1523 Fluticasone/Salmeterol (Advair 250-50 Diskus) 1 Each Blst.w.dev, 1 EACH IH HS, (Reported) Entered as Reported by: SARY PINEDA on 12/05/17 07 Lisinopril (Lisinopril) 20 Mg Tablet, 20 MG PO DAILY@0900 Prescribed by: MANUEL RASMUSSEN on 12/06/17 0959 Metoprolol Tartrate (Metoprolol Tartrate) 50 Mg Tablet, 75 MG PO BID Prescribed by: MANUEL RASMUSSEN on 12/06/17 0959 Nabumetone (Nabumetone) 500 Mg Tablet, 500 MG PO BID, (Reported) Entered as Reported by: SARY PINEDA on 12/05/17 0722 Naproxen (Naproxen) 500 Mg Tablet.dr, 500 MG PO BID, (Reported) Entered as Reported by: NICKY BRAY on 10/25/20 135 Magnolia-3/Dha/Epa/Fish Oil (Fish Oil 500 mg Softgel) 1 Each Capsule, 1 EACH PO DAILY, (Reported) Entered as Reported by: NICKY BRAY on 10/25/20 135 Pantoprazole Sodium (Pantoprazole Sodium) 40 Mg Tablet.dr, 40 MG PO HS, (Reported) Entered as Reported by: SARY PINEDA on 12/05/17 07 Pioglitazone HCl (Pioglitazone HCl) 45 Mg Tablet, 45 MG PO DAILY, (Reported) Entered as Reported by: NICKY BRAY on 10/25/20 135 Pramipexole Di-HCl (Pramipexole Dihydrochloride) 0.5 Mg Tablet, 0.5 MG PO TID PRN for RESTLESSNESS, (Reported) Entered as Reported by: SARY PINEDA on 12/05/17721 Tizanidine HCl (Tizanidine HCl) 4 Mg Tablet, 4 MG PO TID PRN for MUSCLE SPASMS, (Reported) Entered as Reported by: SARY PINEDA on 12/05/17721 Review of Systems Review of Systems Constitutional: No chills, No diaphoresis, No fever, No malaise; weakness EENTM: No Blurred Vision, No Double Vision, No Eye Pain Respiratory: Denies Cough, Denies Orthopnea; Shortness of Air Cardiovascular: Denies Chest Pain Gastrointestinal: Denies Constipated, Denies Diarrhea, Denies Nausea, Denies Vomiting Genitourinary: Denies Burning, Denies Discharge, Denies Drainage, Denies Frequency Musculoskeletal: No back pain, No gout, No joint pain Skin: No change in color, No change in hair/nails All Other Systems Reviewed Negative Unless Noted: Yes Past Easarww-Aygjnm-Aqxnpd Hx Immunizations Up To Date First/Initial COVID19 Vaccinat: YES Second COVID19 Vaccination Mann: YES Third COVID19 Vaccination Date: YES Seasonal Allergies Seasonal Allergies: Yes Past Medical History Surgery/Hospitalization HX: BACK SURGERY, JOAQUÍN, HYSTO HTN, HLD, HTN, DM, GERD Surgeries: Yes (THROAT; HYST/BSO; HERNIA/ STENT) Gallbladder, Hysterectomy, Oophorectomy Respiratory: Yes Asthma Cardiac: Yes (STENT 3 YRS AGO) Heart Attack, High Cholesterol, Hypertension Neurological: No 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 Sexually Transmitted Disease: No Genitourinary: No Gastrointestinal: Yes Abdominal Hernia, Gall Bladder Disease Musculoskeletal: Yes (FIBROMYALGIA; RESTLESS LEG SYNDROME) Fibromyalgia, Chronic Back Pain Endocrine: Yes (DIET CONTROLLED DIABETES) Diabetes, Non-Insulin dep Loss of Vision: Denies Hearing Impairment: Denies Cancer: Yes Skin Did You Recieve Any Treatments: Yes Psychosocial: Yes Depression Integumentary: No Blood Disorders: No Adverse Reaction/Blood Tranf: No Family Medical History Hypertension Physical Exam Vital Signs Vital Signs - First Documented 11/07/22 17:28 Temp 37.1 Pulse 64 Resp 17 B/P (MAP) 167/97 (120) Pulse Ox 97 O2 Delivery Room Air Capillary Refill : Height, Weight, BMI Height: 5'1.00" Weight: 154lbs. 5.0oz. 69.166248cf; 31.17 BMI Method:Stated General Appearance: No Apparent Distress, WD/WN HEENT: PERRL/EOMI, TMs Normal, Normal ENT Inspection, Pharynx Normal Neck: Full Range of Motion, Normal Inspection, Non Tender, Supple Respiratory: Chest Non Tender, Lungs Clear, Normal Breath Sounds, No Accessory Muscle Use, No Respiratory Distress Cardiovascular: Regular Rate, Rhythm, No Edema, No Gallop, No JVD, No Murmur Gastrointestinal: Normal Bowel Sounds, No Organomegaly, No Pulsatile Mass, Non Tender Extremity: Normal Capillary Refill, Normal Inspection, Normal Range of Motion, Non Tender Neurologic/Psychiatric: Alert, Oriented x3, No Motor/Sensory Deficits, Normal 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, 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 as Tested Skin: Normal Color, Warm/Dry Progress/Results/Core Measures Results/Orders Lab Results Laboratory Tests Test 11/07/22 17:50 Range/Units White Blood Count 8.4 4.3-11.0 10^3/uL Red Blood Count 5.17 H 3.80-5.11 10^6/uL Hemoglobin 13.5 11.5-16.0 g/dL Hematocrit 44 35-52 % Mean Corpuscular Volume 85 80-99 fL Mean Corpuscular Hemoglobin 26 25-34 pg Mean Corpuscular Hemoglobin Concent 31 L 32-36 g/dL Red Cell Distribution Width 15.1 H 10.0-14.5 % Platelet Count 175 130-400 10^3/uL Mean Platelet Volume 11.5 9.0-12.2 fL Immature Granulocyte % (Auto) 0 % Neutrophils (%) (Auto) 55 42-75 % Lymphocytes (%) (Auto) 33 12-44 % Monocytes (%) (Auto) 9 0-12 % Eosinophils (%) (Auto) 3 0-10 % Basophils (%) (Auto) 1 0-10 % Neutrophils # (Auto) 4.6 1.8-7.8 10^3/uL Lymphocytes # (Auto) 2.7 1.0-4.0 10^3/uL Monocytes # (Auto) 0.7 0.0-1.0 10^3/uL Eosinophils # (Auto) 0.2 0.0-0.3 10^3/uL Basophils # (Auto) 0.1 0.0-0.1 10^3/uL Immature Granulocyte # (Auto) 0.0 0.0-0.1 10^3/uL Prothrombin Time 13.3 12.2-14.7 SEC INR Comment 1.0 0.8-1.4 Activated Partial Thromboplast Time 35 24-35 SEC Sodium Level 139 135-145 MMOL/L Potassium Level 4.3 3.6-5.0 MMOL/L Chloride Level 109 H 98-107 MMOL/L Carbon Dioxide Level 20 L 21-32 MMOL/L Anion Gap 10 5-14 MMOL/L Blood Urea Nitrogen 10 7-18 MG/DL Creatinine 0.87 0.60-1.30 MG/DL Estimat Glomerular Filtration Rate 74 BUN/Creatinine Ratio 11 Glucose Level 140 H 70-105 MG/DL Calcium Level 9.0 8.5-10.1 MG/DL Corrected Calcium 9.0 8.5-10.1 MG/DL Magnesium Level 2.0 1.6-2.4 MG/DL Total Bilirubin 0.6 0.1-1.0 MG/DL Aspartate Amino Transf (AST/SGOT) 38 H 5-34 U/L Alanine Aminotransferase (ALT/SGPT) 31 0-55 U/L Alkaline Phosphatase 85 40-136 U/L Myoglobin 34.7 10.0-92.0 NG/ML Troponin I < 0.028 <0.028 NG/ML B-Type Natriuretic Peptide 172.0 H <100.0 PG/ML Total Protein 6.5 6.4-8.2 GM/DL Albumin 4.0 3.2-4.5 GM/DL Lipase 52 8-78 U/L My Orders Orders - EB TRAMMELL PA Cbc With Automated Diff (11/07/22 17:38) Magnesium (11/07/22 17:38) Chest 1 View, Ap/Pa Only (11/07/22 17:38) Ekg Tracing (11/07/22 17:38) Comprehensive Metabolic Panel (11/07/22 17:38) Myoglobin Serum (11/07/22 17:38) Protime With Inr (11/07/22 17:38) Partial Thromboplastin Time (11/07/22 17:38) O2 (11/07/22 17:38) Monitor-Rhythm Ecg Trace Only (11/07/22 17:38) Ed Iv/Invasive Line Start (11/07/22 17:38) Lipase (11/07/22 17:38) Bnp Pine (11/07/22 17:38) Troponin I Pine (11/07/22 17:38) Aspirin Chewable Tablet (Baby Aspirin Ch (11/07/22 17:45) Fibrin Degradation Products (11/07/22 19:12) Medications Given in ED Current Medications Medications Dose Ordered Sig/Daniel Route Start Time Stop Time Status Last Admin Dose Admin Aspirin 324 mg ONCE ONCE PO 11/07/22 17:45 11/07/22 17:46 DC 11/07/22 17:53 324 MG Vital Signs/I&O 11/07/22 17:28 Temp 37.1 Pulse 64 Resp 17 B/P (MAP) 167/97 (120) Pulse Ox 97 O2 Delivery Room Air Departure Communication (Admissions) Time/Spoke to Admitting Phy: 19:[address] Newman urologic nurse who recommends n.p.o. after midnight serial troponins, aspirin. Consulted Dr. Gibson hospitalist who agreed to accept patient Communication (PCP) Reviewed previous ER visits, H&P, lab testing. She has a history of coronary artery disease requiring cardiac stent. She had a AK in 2018. She is currently on Plavix. History of hypertension, diabetes, high cholesterol and smoke. Patient had 2 episodes a day of feeling short of breath. Lasting about 3 seconds with no associated chest pain. Similar episode October 23 was seen here in the ED had reassuring lab work, EKG and a CT angio of the chest. Has not followed up with her urologic nurse. Patient on arrival stable vital signs. EKG showed chronic findings with no acute findings. Chest x-ray was negative for pneumonia, pneumothorax. CBC, CMP grossly unremarkable. She did have a BMP of 172. Chest x-ray negative for pleural effusion, pulmonary edema. No appreciation of lower leg swelling. She did receive a full aspirin. She does take Plavix. Discussed patient with Dr. Newman urologic nurse on-call regarding her EKG and presentation. Recommended admission for serial troponins n.p.o. after midnight. Initially patient agreed with this plan of action and discussed patient with Dr. Gibson hospitalist who accept. right before taking patient up she refused admission and states she needed to go home as she has a son with autism. Discussed risks such as potential cardiac , respiratory failure. She acknowledges. Strongly recommend follow-up your PCP in 2 to 3 days for r eevaluation. Recommend follow-up with your urologic nurse. Continue with your medication. If any worsening symptoms such as chest pain or shortness of breath return back to ED. Impression Primary Impression: Chest pain Disposition: AGAINST MEDICAL ADVICE Condition: Against Medical Advice Admissions Decision to Admit Reason: Admit from ER (General) Decision to Admit/Date: Nov 07, 2022 Time/Decision to Admit Time: 19:13 Departure-Patient Inst. Decision time for Depature: 19:31 Referrals: DELIA WALDEN DO (PCP/Family) Primary Care Physician Patient Instructions: Chest Pain, Adult ED Add. Discharge Instructions: Strongly recommend follow-up with your urologic nurse return back to ED if symptoms worsen All discharge instructions reviewed with patient and/or family. Voiced understanding. EB TRAMMELL Nov 07, 2022 17:41
[2022-11-07] MEDS ORDERED: ASPIRIN 81 MG CHEW (CHILDREN'S ASA) PO ONE (17:45)
[2022-11-07 17:59] LABS: BASOPHILS # (AUTO) 0.1 10^3/uL (0.0-0.1); BASOPHILS % (AUTO) 1 % (0-10); EOSINOPHILS # (AUTO) 0.2 10^3/uL (0.0-0.3); EOSINOPHILS % (AUTO) 3 % (0-10); HEMATOCRIT 44 % (35-52); HEMOGLOBIN 13.5 g/dL (11.5-16.0); LYMPHOCYTES # (AUTO) 2.7 10^3/uL (1.0-4.0); LYMPHOCYTES % (AUTO) 33 % (12-44); MEAN CORPUSCULAR HEMOGLOBIN 26 pg (25-34); MEAN CORPUSCULAR HGB CONC 31 g/dL (32-36); MEAN CORPUSCULAR VOLUME 85 fL (80-99); MEAN PLATELET VOLUME 11.5 fL (9.0-12.2); MONOCYTES # (AUTO) 0.7 10^3/uL (0.0-1.0); MONOCYTES % (AUTO) 9 % (0-12); NEUTROPHILS # (AUTO) 4.6 10^3/uL (1.8-7.8); NEUTROPHILS % (AUTO) 55 % (42-75); PLATELET COUNT 175 10^3/uL (130-400); WHITE BLOOD COUNT 8.4 10^3/uL (4.3-11.0)
--- NOTE | 2022-11-07 18:05 | Diagnostic Imaging Report ---
INDICATION: Chest pain. COMPARISON: Comparison is made with prior examination of 10/23/2022. FINDINGS: The heart size, mediastinal configuration, and pulmonary vascularity are within normal limits. There is no pleural effusion, pneumothorax, or pneumonia. The osseous structures are unremarkable. IMPRESSION: No acute cardiopulmonary abnormality. Dictated by: Dictated on workstation # [id number]
[2022-11-07 18:10] LABS: PROTHROMBIN TIME PATIENT 13.3 SEC (12.2-14.7)
[2022-11-07 18:11] LABS: CHLORIDE 109 MMOL/L (98-107); POTASSIUM 4.3 MMOL/L (3.6-5.0); SODIUM 139 MMOL/L (135-145)
[2022-11-07 18:14] LABS: GLUCOSE 140 MG/DL (70-105); TOTAL PROTEIN 6.5 GM/DL (6.4-8.2)
[2022-11-07 18:15] LABS: BILIRUBIN,TOTAL 0.6 MG/DL (0.1-1.0); CARBON DIOXIDE 20 MMOL/L (21-32)
[2022-11-07 18:17] LABS: ALKALINE PHOSPHATASE 85 U/L (40-136); CREATININE SERUM 0.87 MG/DL (0.60-1.30); GFR ESTIMATED 74
[2022-11-07 18:18] LABS: BUN/CREATININE RATIO 11
[2022-11-07 18:20] LABS: ALANINE AMINOTRANSFERASE 31 U/L (0-55)
[2022-11-07 18:21] LABS: LIPASE 52 U/L (8-78)
== END 2022-11-07 19:37 | disposition left against medical advice (07) ==
LOC: EDUNIT# 17:22 → ER 17:23
DX: R07.9 Chest pain, unspecified (principal); I25.2 Old myocardial infarction; Z87.891 Personal history of nicotine dependence; Z95.5 Presence of coronary angioplasty implant and graft; Z91.040 Latex allergy status; Z79.02 Long term (current) use of antithrombotics/antiplatelets
CPT/HCPCS: 36415; 71045; 80053; 83690; 83735; 83874; 83880; 84484; 85025; 85379; 85610; 85730; 93005; 93041

== ENCOUNTER → 2022-11-07 | Outpatient (CLI) | payer MEDICARE, MEDICAID ==
--- NOTE | 2022-11-07 16:06 | Diagnostic Imaging Report ---
INDICATION: Routine screening. COMPARISON: 07/26/2020 and 12/23/2017. TECHNIQUE: 2D and 3D bilateral screening mammography was performed with CAD. FINDINGS: Scattered fibroglandular densities are identified bilaterally. The parenchymal pattern is stable. No mass or malignant-appearing microcalcifications are seen. The axillae are unremarkable. IMPRESSION: No mammographic features suspicious for malignancy are identified. ACR BI-RADS Category 1: Negative. Result letter will be mailed to the patient. Note: At least 10% of breast cancer is not imaged by mammography. Dictated by: Dictated on workstation # [id number]
== END ==
LOC: RAD 14:45
PROVIDERS: ATTEND Family Medicine
DX: Z12.31 Encounter for screening mammogram for malignant neoplasm of breast (principal)
CPT/HCPCS: 77063; 77067